=== PATIENT | female | born 1955 | race African-American/Black ===

== ENCOUNTER → 2020-04-01 08:43 | Outpatient (BNVA) | payer MEDICARE, SELFPAY | PROVIDERS: PCP Nurse Practitioner Family; Referring Provider Nurse Practitioner Family; Visit Provider Nurse Practitioner | DX: K58.2 Mixed irritable bowel syndrome (principal); K21.9 Gastro-esophageal reflux disease without esophagitis; K59.4 Anal spasm | CPT/HCPCS: 99212 ==

== ENCOUNTER → 2020-04-26 12:53 | Outpatient (REF) | payer MEDICARE, SELFPAY ==
--- NOTE | 2020-04-26 12:59 | CA_ITS ---
Transthoracic Echocardiogram Patient (Last, First, Middle): Georgiana Earl, Gender: Female Date of : 1955 Age: 65 Procedure Date: 04/26/2020 Procedure Type: Transthoracic Echocardiogram Location: OP Height: 149.86 cm Weight: 51.48 kg BSA: 1.45 m2 Heart Rate: bpm BP: 110 / 56 mmHg Vending Machine Host/Hostess: Referring MD: Kleber Liu MD Symptoms: I42.9 CMP Study Quality: Good ECG Rhythm: Ventriculary paced rhythm Conclusions: - The left ventricular systolic function is moderately decreased. The visually estimated ejection fraction is between 30-35%. - There is mild to moderate aortic valve regurgitation. - There is mild mitral valve regurgitation. Findings Left Ventricle Normal left ventricular cavity size. There is mildly increased left ventricular wall thickness. The left ventricular systolic function is moderately decreased. The visually estimated ejection fraction is between 30 35%. The calculated ejection fraction is 33% by biplane method. There is moderate global hypokinesis. E/E prime ratio is between 8 and 15 consistent with indeterminate filling pressures. Evidence suggests grade I (mild) diastolic dysfunction. Right Ventricle Normal right ventricular cavity size and systolic function. There is an ICD wire seen in the right ventricle. Atria The left atrium is normal in size. The right atrium is normal in size. Aortic Valve There is a normal trileaflet aortic valve. There is no aortic valve stenosis. There is mild to moderate aortic valve regurgitation. Mitral Valve The mitral valve appears normal. There is mild mitral valve regurgitation. There is no mitral valve stenosis. Pulmonic Valve The pulmonic valve was not well visualized. There is trace pulmonic valve regurgitation. Tricuspid Valve Normal tricuspid valve structure. There is trace tricuspid valve regurgitation. The pulmonary artery systolic pressure is normal. Great Vessels Top normal ascending aortic size at 3.6 cm. Venous The inferior vena cava is normal in size and collapses greater than 50% with inspiration. Pericardium/Pleural There is a small pericardial effusion. There are no definitive echocardiographic findings of tamponade physiology. Prior Study Comparison Changes noted compared to prior study dated: 07/19/2017. LVEF is lower. Measurements 2D Linear Measurements IVSd: 1.10 0.6-0.9/0.6-1.0 cm LVIDd: 5.14 3.9-5.3/4.2-5.9 cm LVIDd Index: 3.54 2.4-3.2/2.2-3.1 cm/m2 LVIDs: 4.24 2.0-3.6 cm LVPWd: 1.10 0.7-1.1 cm Ao Root: 3.50 2.1-3.5 cm LA Diam: 3.20 2.7-3.8/3.0-4.0 cm LAIDs Index: 2.21 1.5-2.3 cm/m2 LV Mass: 270.04 67-162/88-224 g LV Mass Index: 186.23 43-95/49-115 g/m2 LVOT Diam: 2.00 3.0+(-)1.3 cm 2D Systolic Function EF 4C: 29.60 >55% EF 2C: 31.60 >55% EF BiP: 33.10 >55% Mitral Valve MV Pk E: 0.44 MV PK A: 0.97 MV Decel Time: 92.00 E/A: 0.50 E'Lateral: 3.19 E'Medial: 3.58 E/E' Med: 12.20 E/E' Lat: 13.70 PHT: 27.00 MVA PHT: 8.15 Decel [place]: 4.77 Aortic Valve AoV Pk Jose Antonio: 1.29 AoV Mn Jose Antonio: 0.77 AoV VTI: 0.31 AoV Pk Grad: 7.00 Aov Mn Grad: 3.00 ECHO Cont.VTI: 1.92 AI Pk Jose Antonio: 5.20 AI [place]field: 3.44 LVOT LVOT Pk Jose Antonio: 0.94 LVOT Mn Jose Antonio: 0.55 LVOT VTI: 0.19 LVOT Pk Grad: 4.00 LVOT Mn Grad: 2.00 LVOT Diam: 2.00 LVOT Area: 3.14 Diastolic Function MV Pk E: 0.44 MV Pk A: 0.97 E/A: 0.50 E'Medial: 3.58 E/E' Med: 12.20 E' Laterial: 3.19 E/E' Lat: 13.70 Tricuspid Valve TR Pk Jose Antonio: 2.33 TR Pk Grad: 22.00 Great Vessels Aorta Ao Root-2D: 3.50 2.0-3.7 cm Ao Asc: 3.60 2.1-3.4 cm Pulmonary Valve PV Pk Jose Antonio: 0.86 Peak PV Grad: 3.00 Updated in Other Vendor System with Status of Final Praveen Singh MD electronically signed on 04/27/2020 8:47:05 AM with status of Final
== END ==
LOC: HO.CARD 12:53
PROVIDERS: Visit Provider Internal Medicine Cardiovascular Disease
DX: I42.9 Cardiomyopathy, unspecified (principal); I11.0 Hypertensive heart disease with heart failure; I50.9 Heart failure, unspecified
CPT/HCPCS: 93306

== ENCOUNTER 2020-05-11 23:49 | Inpatient (IN) | payer MEDICARE, SELFPAY ==
[2020-05-11 23:51] VITALS: BP 206/131; PULSE 116; RESP 18; TEMP 36.8; O2SAT 99; BMI 20.3
--- NOTE | 2020-05-11 23:57 | ED.ABDPAIN ---
HPI - Abdominal Pain General Chief Complaint: Abdominal Pain Stated Complaint: abdominal and back pain Time Seen by Provider: 05/11/20 23:57 Source: patient Mode of arrival: EMS Limitations: no limitations History of Present Illness HPI narrative: patient complaining of sudden onset of left flank pain going to the left side of abdomen prior to arrival with nausea and vomiting no fever no urinary symptoms never had any kidney stone in the past no fever abdominal distension no blood in the stool no urinary complaints MD elicited complaint: flank pain Pertinent past history: none Onset (ago): hour(s) Location: L flank Severity: severe Quality: stabbing Related Data Home Medications Medication Instructions Recorded Confirmed hydrocortisone 2.5 % topical cream 1 applic AK BID-QID PRN 03/31/20 03/31/20 with perineal applicator [id number] 1 cap PO TID cap 03/31/20 03/31/20 3,000-9,500-15,000 unit capsule,delayed releas methylcellulose (laxative) 500 mg 500 mg PO BID 03/31/20 03/31/20 tablet Previous Rx's Medication Instructions Recorded omeprazole 20 mg capsule,delayed 20 mg PO BID #60 cap 04/01/20 release sacubitril 97 mg-valsartan 103 mg 1 tab PO BID 90 Days #180 tab 04/27/20 tablet imipramine HCl 10 mg tablet 10 mg PO BEDTIME #30 tab 04/28/20 carvedilol 25 mg tablet 37.5 mg PO BID 90 Days #270 tab 05/07/20 Allergies Allergy/AdvReac Type Severity Reaction Status Date / Time Iodinated Contrast Media Allergy Severe ANGIOEDEMA Verified 04/01/20 08:46 [CONTRAST,IV] Review of Systems Review of Systems REVIEW OF SYSTEMS: Pertinent positives and negatives are stated above in the history. GEN: no fevers, chills, fatigue HEENT: no nasal congestion, sore throat, ear pain NEURO: no headache, dizziness, focal weakness PULM: no cough, shortness of breath CV: no chest pain, palpitations, LE edema ABD: no diarrhea no abdominal distention : no dysuria, urgency, frequency SKIN: no rash ROS otherwise negative x 10 Physical Exam Vital Signs: Vital Signs: Last Vital Signs Temp 98.3 F 05/11/20 23:51 Pulse 94 05/12/20 01:10 Resp 18 05/12/20 01:10 BP 186/104 H 05/12/20 01:10 Pulse Ox 95 05/12/20 01:10 Body Mass Index 20.3 Appearance: Alert. Oriented X3. in moderate distress Eyes: Pupils equal, round and reactive to light. ENT: Pharynx normal. Neck: Normal inspection. Neck supple. CVS: Normal heart rate and rhythm. Pulses normal. Respiratory: No respiratory distress. Breath sounds normal. Abdomen: Soft and tender left-sided no rebound tenderness or guarding. Left flank tenderness++ no hernia palpable bowel sounds are present in all 4 quadrants no mass palpable Skin: Skin warm and dry. Normal skin color. Normal skin turgor. Extremities: No lower extremity edema. Good range of movement Neuro: Oriented X 3. No motor deficit. No sensory deficit. Course Course Course Narrative: patient workup showed left distal ureteric stone 5 mm with hydronephrosis also urine shows UTI patient has history of recent urosepsis lactic acid is elevated 2.2 and elevated WBC count will give IV antibiotics and admit patient for pain control and infection MDM - Abdominal Pain MDM Narrative Medical decision making narrative: patient's acute onset of left flank pain clinically likely kidney stone but patient never had a history of kidney stones. Will do the CT scan workup check the urine for UTI Differential Diagnosis Differential diagnosis: Likely abdominal pain, calculus of kidney, diverticulitis and renal colic Medical Records Attestation: I reviewed the patient's medical records. Lab Data Attestation: I reviewed the patient's lab results. Result diagrams: 05/12/20 00:11 05/12/20 00:11 Labs: Lab Results 05/12/20 05/12/20 05/12/20 Range/Units 00:11 00:11 00:11 WBC 13.5 H (4.8-10.8) X10*3/uL RBC 3.76 L (4.20-5.50) X10*6/uL Hgb 11.8 L (12.0-16.0) g/dl Hct 35.6 L (37-47) % MCV 94.7 (80-98) fL MCH 31.4 (27.0-33.0) pg MCHC 33.1 (31.0-35.0) g/dl RDW 15.3 (11.0-16.0) % Plt Count 234 (160-400) X10*3/uL MPV 9.5 (9.4-12.3) fL Immature Gran % (Auto) 0.4 (0.0-0.4) % Neut % (Auto) 85.2 H (45-73) % Lymph % (Auto) 6.1 L (20-40) % [place] % (Auto) 6.8 (2-11) % Eos % (Auto) 1.0 (0-4) % Baso % (Auto) 0.5 (0-2) % Lymph # (Auto) 0.8 L (1.2-4.9) X10*3/uL [place] # (Auto) 0.9 (0.1-1.2) X10*3/uL Eos # (Auto) 0.1 (0.0-0.4) X10*3/uL Baso # (Auto) 0.1 (0.0-0.2) X10*3/uL Abs Immat Gran (auto) 0.06 H (0.00-0.03) X10*3/uL Absolute Neuts (auto) 11.5 H (2.0-8.3) X10*3/uL Absolute Nucleated RBC 0.000 (0.0-0.012) X10*3/uL Nucleated RBC % (auto) 0.0 (0.0-0.2) /100WBC Hold Blue Top SEE NOTE Sodium 144 (135-145) mmol/L Potassium 3.8 (3.3-5.1) mmol/l Chloride 112 H (96-108) mmol/L Carbon Dioxide 21 L (22-29) mmol/L Anion Gap 15 (12-20) BUN 21 H (9-16) mg/dL Creatinine 1.66 H (0.5-1.4) mg/dL Estim Creat Clear Calc 26.4 Estimated GFR 31 Random Glucose 127 H (60-115) mg/dL Lactic Acid (0.5-2.0) mmol/L Calcium 8.2 L (8.4-10.2) mg/dL Total Bilirubin 0.5 (0.0-1.0) mg/dL AST 18 (5-31) U/L ALT 9 (0-31) U/L Alkaline Phosphatase 81 (39-117) U/L Total Protein 7.2 (6.5-8.0) g/dL Albumin 4.2 (3.5-5.0) g/dL Lipase 94 H (8-78) U/L Urine Color Urine Appearance Urine pH (5.0-8.0) Ur Specific [place] (1.005-1.025) Urine Protein (NEG-TRACE) MG/DL Urine Glucose (UA) (NEG) MG/DL Urine Ketones (NEG) MG/DL Urine Blood (NEG) Urine Nitrite (NEG) Ur Leukocyte Esterase (NEG) Urine RBC (0) /HPF Urine WBC (0-4) /HPF Urine WBC Clumps Ur Squamous Epith Cells /LPF Urine Bacteria /LPF 05/12/20 05/12/20 Range/Units 00:31 00:39 WBC (4.8-10.8) X10*3/uL RBC (4.20-5.50) X10*6/uL Hgb (12.0-16.0) g/dl Hct (37-47) % MCV (80-98) fL MCH (27.0-33.0) pg MCHC (31.0-35.0) g/dl RDW (11.0-16.0) % Plt Count (160-400) X10*3/uL MPV (9.4-12.3) fL Immature Gran % (Auto) (0.0-0.4) % Neut % (Auto) (45-73) % Lymph % (Auto) (20-40) % [place] % (Auto) (2-11) % Eos % (Auto) (0-4) % Baso % (Auto) (0-2) % Lymph # (Auto) (1.2-4.9) X10*3/uL [place] # (Auto) (0.1-1.2) X10*3/uL Eos # (Auto) (0.0-0.4) X10*3/uL Baso # (Auto) (0.0-0.2) X10*3/uL Abs Immat Gran (auto) (0.00-0.03) X10*3/uL Absolute Neuts (auto) (2.0-8.3) X10*3/uL Absolute Nucleated RBC (0.0-0.012) X10*3/uL Nucleated RBC % (auto) (0.0-0.2) /100WBC Hold Blue Top Sodium (135-145) mmol/L Potassium (3.3-5.1) mmol/l Chloride (96-108) mmol/L Carbon Dioxide (22-29) mmol/L Anion Gap (12-20) BUN (9-16) mg/dL Creatinine (0.5-1.4) mg/dL Estim Creat Clear Calc Estimated GFR Random Glucose (60-115) mg/dL Lactic Acid 2.2 H* (0.5-2.0) mmol/L Calcium (8.4-10.2) mg/dL Total Bilirubin (0.0-1.0) mg/dL AST (5-31) U/L ALT (0-31) U/L Alkaline Phosphatase (39-117) U/L Total Protein (6.5-8.0) g/dL Albumin (3.5-5.0) g/dL Lipase (8-78) U/L Urine Color STRAW Urine Appearance HAZY Urine pH 6.5 (5.0-8.0) Ur Specific [place] 1.020 (1.005-1.025) Urine Protein TRACE (NEG-TRACE) MG/DL Urine Glucose (UA) NEG (NEG) MG/DL Urine Ketones NEG (NEG) MG/DL Urine Blood 3+ H (NEG) Urine Nitrite NEG (NEG) Ur Leukocyte Esterase TRACE H (NEG) Urine RBC 50-75 H (0) /HPF Urine WBC 30-49 H (0-4) /HPF Urine WBC Clumps NOTED Ur Squamous Epith Cells 2+ /LPF Urine Bacteria 3+ /LPF Discharge Plan Discharge Clinical Impression: Calculus of distal left ureter, Acute pyelonephritis Patient Disposition: Admitted As Inpatient [facility] Past Medical History Medical History CAD (coronary artery disease) Cardiomyopathy Chronic heart failure with reduced ejection fraction and diastolic dysfunction HTN (hypertension) Hyperlipidemia ICD (implantable cardioverter-defibrillator) in place Surgical History Hx of colonoscopy Stented coronary artery Family History Family History Father Diabetes HTN (hypertension) Mother Diabetes HTN (hypertension) Sister Throat cancer Social History Social History Alcohol intake: current Alcohol intake frequency: holidays/special occasions only Alcohol type: beer Smoking Status: Current every day smoker Tobacco Type: Cigarette Cigarettes Per Day: 3 Advance Directives: No
[2020-05-12] VITALS (15 sets, daily range): BP systolic 105–191; BP diastolic 73–111; PULSE 89–102; RESP 14–22; TEMP 36.7–37.3; O2SAT 94–100; BMI 20.7
--- NOTE | 2020-05-12 | ECG_ITS ---
Test Reason : ABD PAIN Blood Pressure : / mmHG Vent. Rate : 091 BPM Atrial Rate : 091 BPM P-R Int : 142 ms QRS Dur : 086 ms QT Int : 398 ms P-R-T Axes : 054 011 087 degrees QTc Int : 489 ms Artifact in tracing Normal sinus rhythm Left ventricular hypertrophy with repolarization abnormality Abnormal ECG When compared with ECG of 05-MAR-2017 12:11, T wave inversion now evident in Lateral leads Referred By: Zaire Vega Electronically Signed By:SANIYA TYSON
--- NOTE | 2020-05-12 00:02 | CT_ITS ---
EXAMINATION: CT ABDOMEN AND PELVIS WITHOUT CONTRAST CLINICAL INFORMATION: Left flank pain. COMPARISON: Priors dating back to 2013 TECHNIQUE: Multidetector volumetric imaging was performed from the superior aspect of the liver through the pubic symphysis. Sagittal and coronal reformatted images were obtained on the technologist's workstation. This CT examination was performed using dose optimization techniques as appropriate, variously including the following: *Automated exposure control *Adjustment of mA and/or kV according to patient size (this includes techniques or standardized protocols for targeted exams where dose is matched to indication/reason for exam; i.e. extremities or head) *Use of iterative reconstruction technique DLP: 386 mGy-cm FINDINGS: LUNG BASES: The visualized lung bases are unremarkable. LIVER, GALLBLADDER, AND BILIARY TREE: The liver is normal in size, shape, and attenuation. Stable cyst in the lateral segment. No suspicious hepatic lesion or biliary ductal dilatation is present. Gallbladder unremarkable. PANCREAS: Unremarkable. SPLEEN: Unremarkable. ADRENAL GLANDS: Slowly increasing size of a left adrenal nodule which now measures 2.0 x 1.8 cm, previously 1.4 x 1.2 cm in 2014. Attenuation is 13 Hounsfield units, which is not diagnostic of a benign lipid rich adrenal adenoma. Right adrenal gland is normal. KIDNEYS AND URETERS: Chronic atrophy and multifocal scarring of the LEFT kidney redemonstrated. There is moderate to severe left hydronephrosis and moderate hydroureter upstream from a 5 mm calculus located 1 cm proximal to the ureterovesical junction. There is a 5 x 2 mm nonobstructing calculus within the upper pole of the LEFT kidney, and a punctate calculus within the upper pole of the LEFT kidney. There is a punctate nonobstructive calculus within the upper pole of the right kidney. Focal scarring redemonstrated within the lower pole of the right kidney. No suspicious renal cysts or masses. BLADDER: Unremarkable. GASTROINTESTINAL TRACT: Scattered left colonic diverticula. No evidence of diverticulitis. Normal appendix. Stomach and small bowel unremarkable. ABDOMINAL WALL: No significant hernia is appreciated. LYMPH NODES: Normal. VASCULAR: Aorta is atherosclerotic. Stable mild aneurysmal dilatation of the abdominal aorta at the diaphragmatic hiatus measuring up to 3.3 cm. PELVIC VISCERA: Unremarkable. OSSEOUS STRUCTURES: No acute or suspicious osseous abnormalities. CT/CT abdomen pelvis wo con IMPRESSION: * There is a 5 mm calculus within the distal LEFT ureter, 1 cm proximal to the ureterovesical junction associated with moderate to severe left hydronephrosis. * Additional bilateral nonobstructive intrarenal calculi as described. * Chronic atrophy and multifocal scarring of the left kidney, and minimal focal scarring of the right lower kidney. Slowly increasing size of a left adrenal nodule which now measures up to 2.0 cm, previously 1.4 cm and 2014. Attenuation is not diagnostic of a lipid rich adenoma, although is suggested. Consider MRI with chemical shift imaging for more definitive characterization. At the minimum, current guidelines from the [place] [employer] of Clinical Endocrinologists and the [place] [employer] of Endocrine Surgeons recommend an initial biochemical evaluation of all adrenal incidentalomas to exclude pheochromocytoma, subclinical Lyme/s syndrome and hyperaldosteronism. * Scattered sigmoid colonic diverticula without evidence of diverticulitis. * Stable mild aneurysmal dilatation of the ascending aorta at the diaphragmatic hiatus measuring 3.3 cm.
[2020-05-12 00:19] LABS: Basophils Absolute Auto 0.1 X10*3/uL (0.0-0.2); Basophils Percent Auto 0.5 % (0-2); Eosinophils Absolute Auto 0.1 X10*3/uL (0.0-0.4); Hematocrit 35.6 % (37-47); Hemoglobin 11.8 g/dl (12.0-16.0); Imm Gran Abs Auto 0.06 X10*3/uL (0.00-0.03); Imm Gran Pct Auto 0.4 % (0.0-0.4); Lymphocytes Absolute Auto 0.8 X10*3/uL (1.2-4.9); Lymphocytes Percent Auto 6.1 % (20-40); MANUAL DIFF FLAG NO; Mean Corpuscular HGB Conc 33.1 g/dl (31.0-35.0); Mean Corpuscular Hemoglobin 31.4 pg (27.0-33.0); Mean Corpuscular Volume 94.7 fL (80-98); Mean Platelet Volume 9.5 fL (9.4-12.3); Monocytes Absolute Auto 0.9 X10*3/uL (0.1-1.2); Monocytes Percent Auto 6.8 % (2-11); Neutrophils Absolute Auto 11.5 X10*3/uL (2.0-8.3); Neutrophils Percent Auto 85.2 % (45-73); Platelet Count 234 X10*3/uL (160-400); Red Blood Count 3.76 X10*6/uL (4.20-5.50); Red Cell Distribution Width 15.3 % (11.0-16.0); White Blood Count 13.5 X10*3/uL (4.8-10.8)
[2020-05-12] MEDS: Morphine Sulfate 4 MG/ML CARTRIDGE IVPUSH ×3 (00:24→13:24)
[2020-05-12] MEDS: ondansetron HCL 4 MG/2 ML VIAL IVPUSH (00:24)
[2020-05-12] MEDS: 0.9 % Sodium Chloride 1,000 ML 999 ML IVCONT ×2 (00:24→01:18)
[2020-05-12 00:44] LABS: Glucose Urine UA NEG (NEG); Leukocyte Esterase Urine TRACE (NEG); Nitrite Urine NEG (NEG); PH 6.5 (5.0-8.0); Urine Blood 3+ (NEG); Urine Ketones NEG (NEG); Urine Protein TRACE MG/DL (NEG-TRACE)
[2020-05-12 00:46] LABS: Appearance Urine HAZY; Color Urine STRAW
[2020-05-12 00:48] LABS: Alanine Aminotransferase 9 U/L (0-31); Albumin Level 4.2 g/dL (3.5-5.0); Alkaline Phosphatase 81 U/L (39-117); Anion Gap 15 (12-20); Aspartate Amino Transferase 18 U/L (5-31); Bilirubin Total 0.5 mg/dL (0.0-1.0); Blood Urea Nitrogen 21 mg/dL (9-16); Calcium 8.2 mg/dL (8.4-10.2); Carbon Dioxide 21 mmol/L (22-29); Chloride 112 mmol/L (96-108); Creatinine Clr Calc Pharmacy 26.4; Estimated Glomerular Filt Rate 31; Glucose Random 127 mg/dL (60-115); Lipase 94 U/L (8-78); Potassium 3.8 mmol/l (3.3-5.1); Sodium 144 mmol/L (135-145); Total Protein 7.2 g/dL (6.5-8.0)
[2020-05-12 00:51] LABS: Bacteria Urine 3+ /LPF; RBC Urine 50-75 /HPF (0); Squamous Epithelial Cell Urine 2+ /LPF; WBC Clumps Urine NOTED; WBC Urine 30-49 /HPF (0-4)
[2020-05-12 01:01] LABS: Lactic Acid 2.2 mmol/L (0.5-2.0)
[2020-05-12] MEDS: cefTRIAXone sodium 1 GM in 0.9 % Sodium Chloride 50 ML IV ×2 (01:18→21:25)
--- NOTE | 2020-05-12 01:45 | PC.NURSE ---
pt reports feeling unwell for a long time. but acute onset of pain. i just dont' deal with pain well. Pt reports severe pain post morphine administration.
[2020-05-12] MEDS: HYDROmorphone HCl 0.5 MG/0.5 ML SYRINGE IVPUSH (02:05)
[2020-05-12 02:33] LABS: COVID-19 Test Negative (Negative)
[2020-05-12 02:34] LABS: Reflex Lactate? Lactic Acid Added
[2020-05-12] MEDS: Labetalol HCL 100 MG TABLET PO (02:58)
--- NOTE | 2020-05-12 03:22 | PC.NURSE ---
pt medicated with po labetolol. monitoring for effect now.
[2020-05-12 04:12] LABS: Lactic Acid 3.4 mmol/L (0.5-2.0)
--- NOTE | 2020-05-12 04:15 | PC.NURSE ---
attempted to give report. floor rn refused.
--- NOTE | 2020-05-12 04:24 | PM.IMHP ---
History of Present Illness Date of Service: 05/12/20 Chief Complaint: flank pain this is a 65-year-old female with extensive past medical history as below who presents to the hospital with complaints of left flank pain. Patient received pain medication is very lethargic, history is obtained mostly from ED physician and chart. diffuse the patient has left flank pain associated with nausea and vomiting, denies any fever, or chills. Patient is also denying any urinary symptoms. unable to obtain complete review of system. on arrival to the ED patient hemodynamically stable with a pulse rate of 116, blood pressure of 2 6/131. Currently has a temperature of 99.2?, pulse rate of 100, respiratory rate of 18, blood pressure 149/89. Satting 95% on room air. Labs are significant for WBC count of 13.5,hemoglobin of 11.8, lactic acid of 2.2, lipase of 94. UA that is positive for blood, leukocyte Estrace, and WBC. COVID-[address] shows a 5 mm calculus within the distal left ureter, associated with moderate to severe left hydronephrosis. Chronic atrophy and multifocal scarring of the left kidney and minimal focal scarring of the right lower kidney. Patient does have history of UTI and pyelonephritis. Most recently admitted in January for pyelonephritis. Past medical history is obtained Mostly from chart. Past medical history: Coronary artery disease, hypertension, history of nephrolithiasis, GI bleed,cardiomyopathy, chronic heart failure with reduced ejection fraction and diastolic dysfunction, hypertension, hyperlipidemia, status post ICD., depression, neuropathy, GERD, asthma, CKD Surgical history: [facility] ICD placement, exploratory laparotomy 2014 family history: Cardiac disease social history: comes from home, Review of Systems Review of Systems: Yes Unobtainable due to mental condition [facility] Medical History CAD (coronary artery disease) Cardiomyopathy Chronic heart failure with reduced ejection fraction and diastolic dysfunction HTN (hypertension) Hyperlipidemia ICD (implantable cardioverter-defibrillator) in place Family History Father Diabetes HTN (hypertension) Mother Diabetes HTN (hypertension) Sister Throat cancer Surgical History Hx of colonoscopy Stented coronary artery Social History Alcohol intake: current Alcohol intake frequency: holidays/special occasions only Alcohol type: beer Smoking Status: Current every day smoker Tobacco Type: Cigarette Cigarettes Per Day: 3 Advance Directives: No Meds Allergies Allergy/AdvReac Type Severity Reaction Status Date / Time Iodinated Contrast Media Allergy Severe ANGIOEDEMA Verified 04/01/20 08:46 [CONTRAST,IV] Home Medications Medication Instructions Recorded Confirmed Type hydrocortisone 2.5 % topical cream 1 applic AR BID-QID PRN 03/31/20 03/31/20 History with perineal applicator [id number] 1 cap PO TID cap 03/31/20 03/31/20 History 3,000-9,500-15,000 unit capsule,delayed releas methylcellulose (laxative) 500 mg 500 mg PO BID 03/31/20 03/31/20 History tablet Physical Exam Vital Signs and Narrative: Vital Signs: Last Vital Signs Temp 98.3 F 05/11/20 23:51 Pulse 99 05/12/20 03:32 Resp 18 05/12/20 03:32 BP 157/91 H 05/12/20 03:55 Pulse Ox 97 05/12/20 03:32 Body Mass Index 20.3 Const: Other: patient lethargic but arousable. Does not appear in any acute distress Eyes: General: appearance normal, both eyes and all related structures Pupils: Equal, round and reactive pupils present Resp: Effort & Inspection: normal respiratory effort and able to speak in complete sentences Auscultation: clear to auscultation bilaterally Cardio: Rate: regular rate Rhythm: regular rhythm GI: Palpation (GI): Soft to palpation Auscultation: normal bowel sounds Skin: General skin exam: no rashes or lesions noted Neuro: Cranial nerves: Yes Equal, round and reactive pupils present Cognition (Neuro): normal cognition Extrem: General: Yes normal to inspection and Yes no pedal edema Results Labs CBC and Chem 7: 05/12/20 00:11 05/12/20 00:11 Labs: Laboratory Results - last 24 hr 05/12/20 05/12/20 05/12/20 00:11 00:11 00:11 MCV 94.7 MCH 31.4 MCHC 33.1 RDW 15.3 Plt Count 234 MPV 9.5 Immature Gran % (Auto) 0.4 Neut % (Auto) 85.2 H Lymph % (Auto) 6.1 L [place] % (Auto) 6.8 Eos % (Auto) 1.0 Baso % (Auto) 0.5 Lymph # (Auto) 0.8 L [place] # (Auto) 0.9 Eos # (Auto) 0.1 Baso # (Auto) 0.1 Abs Immat Gran (auto) 0.06 H Absolute Neuts (auto) 11.5 H Absolute Nucleated RBC 0.000 Nucleated RBC % (auto) 0.0 Hold Blue Top SEE NOTE Anion Gap 15 Estim Creat Clear Calc 26.4 Estimated GFR 31 Random Glucose 127 H Lactic Acid Lactic Acid Fup @ 2Hr Calcium 8.2 L Total Bilirubin 0.5 AST 18 ALT 9 Alkaline Phosphatase 81 Total Protein 7.2 Albumin 4.2 Lipase 94 H Urine Color Urine Appearance Urine pH Ur Specific [place] Urine Protein Urine Glucose (UA) Urine Ketones Urine Blood Urine Nitrite Ur Leukocyte Esterase Urine RBC Urine WBC Urine WBC Clumps Ur Squamous Epith Cells Urine Bacteria COVID-19 (RICK) COVID-A Fourth Act 05/12/20 05/12/20 05/12/20 00:31 00:39 02:08 MCV MCH MCHC RDW Plt Count MPV Immature Gran % (Auto) Neut % (Auto) Lymph % (Auto) [place] % (Auto) Eos % (Auto) Baso % (Auto) Lymph # (Auto) [place] # (Auto) Eos # (Auto) Baso # (Auto) Abs Immat Gran (auto) Absolute Neuts (auto) Absolute Nucleated RBC Nucleated RBC % (auto) Hold Blue Top Anion Gap Estim Creat Clear Calc Estimated GFR Random Glucose Lactic Acid 2.2 H* Lactic Acid Fup @ 2Hr Calcium Total Bilirubin AST ALT Alkaline Phosphatase Total Protein Albumin Lipase Urine Color STRAW Urine Appearance HAZY Urine pH 6.5 Ur Specific [place] 1.020 Urine Protein TRACE Urine Glucose (UA) NEG Urine Ketones NEG Urine Blood 3+ H Urine Nitrite NEG Ur Leukocyte Esterase TRACE H Urine RBC 50-75 H Urine WBC 30-49 H Urine WBC Clumps NOTED Ur Squamous Epith Cells 2+ Urine Bacteria 3+ COVID-19 (RICK) Negative COVID-[employer] Clin Com See Note 05/12/20 05/12/20 02:48 03:19 MCV MCH MCHC RDW Plt Count MPV Immature Gran % (Auto) Neut % (Auto) Lymph % (Auto) [place] % (Auto) Eos % (Auto) Baso % (Auto) Lymph # (Auto) [place] # (Auto) Eos # (Auto) Baso # (Auto) Abs Immat Gran (auto) Absolute Neuts (auto) Absolute Nucleated RBC Nucleated RBC % (auto) Hold Blue Top Anion Gap Estim Creat Clear Calc Estimated GFR Random Glucose Lactic Acid 3.4 H* Lactic Acid Fup @ 2Hr Cancelled Calcium Total Bilirubin AST ALT Alkaline Phosphatase Total Protein Albumin Lipase Urine Color Urine Appearance Urine pH Ur Specific [place] Urine Protein Urine Glucose (UA) Urine Ketones Urine Blood Urine Nitrite Ur Leukocyte Esterase Urine RBC Urine WBC Urine WBC Clumps Ur Squamous Epith Cells Urine Bacteria COVID-19 (RICK) COVID-19 Clin Com Imaging Radiologist's Impressions: Impressions Abdomen/Pelvis CT 05/12/20 00:02 IMPRESSION: * There is a 5 mm calculus within the distal LEFT ureter, 1 cm proximal to the ureterovesical junction associated with moderate to severe left hydronephrosis. * Additional bilateral nonobstructive intrarenal calculi as described. * Chronic atrophy and multifocal scarring of the left kidney, and minimal focal scarring of the right lower kidney. Slowly increasing size of a left adrenal nodule which now measures up to 2.0 cm, previously 1.4 cm and 2014. Attenuation is not diagnostic of a lipid rich adenoma, although is suggested. Consider MRI with chemical shift imaging for more definitive characterization. At the minimum, current guidelines from the [place] [employer] and the [place] [employer] recommend an initial biochemical evaluation of all adrenal incidentalomas to exclude pheochromocytoma, subclinical Olimpia/s syndrome and hyperaldosteronism. * Scattered sigmoid colonic diverticula without evidence of diverticulitis. * Stable mild aneurysmal dilatation of the ascending aorta at the diaphragmatic hiatus measuring 3.3 cm. Assessment and Plan (1) Sepsis: Status: Acute (2) Calculus of distal left ureter: Status: Acute (3) Acute pyelonephritis: Status: Acute (4) Chronic heart failure with reduced ejection fraction and diastolic dysfunction: Status: Acute (5) CAD (coronary artery disease): Status: Acute (6) HTN (hypertension): Status: Acute (7) Hyperlipidemia: Status: Acute (8) GERD (gastroesophageal reflux disease): Status: Acute this is a 65-year-old female with past medical history of nephrolithiasis as well as pyelonephritis who presents to the hospital with flank pain. Found to have kidney stone as well as UTI. # Sepsis - secondary to pyelonephritis, no other source of infection at this time, has nephrolithiasis of the left used to - tachycardia, leukocytosis, afebrile at this time - Has elevated lactic acid Plan: - started on ceftriaxone - blood and urine cultures collected in the ED, will follow - IV fluids # pyelonephritis - source most likely nephrolithiasis plan: - Urology consult for management of the nephrolithiasis - IV antibiotics - urine and blood cultures - IV fluids # nephrolithiasis - consult urology - IV fluids # history of coronary artery disease - continue carvedilol, # history of congestive heart failure - does not appear to be in exacerbation - continue Entresto as well as carvedilol - monitor respiratory status as patient will be started on IV antibiotics DVT prophylaxis: Lovenox
[2020-05-12 05:22] LABS: Reflex Lactate? Lactic Acid Added
[2020-05-12] MEDS: Lactated Ringers 1,000 ML 100 ML IVCONT ×2 (05:51→16:24)
[2020-05-12] MEDS: Enoxaparin Sodium 40 MG/0.4 ML SYRINGE SUBCUT (05:51)
[2020-05-12 06:55] LABS: ~Lactic Acid-LAB USE ONLY 2.1 mmol/L (0.5-2.0)
--- NOTE | 2020-05-12 07:10 | PC.NURSE ---
0655; Lab called with critical lacitc of 2.1 trending from previous lactic of 3.4 Day shift RN Maya made aware, change of shift md, day shift RN will notify am
[2020-05-12 08:09] LABS: Reflex Lactate? 2 Y
[2020-05-12 08:24] LABS: Basophils Absolute Auto 0.1 X10*3/uL (0.0-0.2); Basophils Percent Auto 0.3 % (0-2); Eosinophils Percent Auto 0.3 % (0-4); Hematocrit 35.4 % (37-47); Hemoglobin 11.6 g/dl (12.0-16.0); Imm Gran Abs Auto 0.07 X10*3/uL (0.00-0.03); Imm Gran Pct Auto 0.5 % (0.0-0.4); Lymphocytes Absolute Auto 0.6 X10*3/uL (1.2-4.9); MANUAL DIFF FLAG SCAN; Mean Corpuscular HGB Conc 32.8 g/dl (31.0-35.0); Mean Corpuscular Hemoglobin 31.4 pg (27.0-33.0); Mean Corpuscular Volume 95.7 fL (80-98); Mean Platelet Volume 10.6 fL (9.4-12.3); Monocytes Percent Auto 6.4 % (2-11); Neutrophils Absolute Auto 13.7 X10*3/uL (2.0-8.3); Neutrophils Percent Auto 88.5 % (45-73); Platelet Count 215 X10*3/uL (160-400); Red Cell Distribution Width 15.4 % (11.0-16.0); SCAN SMEAR FLAG 1; White Blood Count 15.4 X10*3/uL (4.8-10.8)
[2020-05-12 08:36] LABS: Anion Gap 15 (12-20); Blood Urea Nitrogen 18 mg/dL (9-16); Carbon Dioxide 19 mmol/L (22-29); Chloride 112 mmol/L (96-108); Creatinine Clr Calc Pharmacy 30.3; Estimated Glomerular Filt Rate 36; Glucose Random 115 mg/dL (60-115); Potassium 4.3 mmol/l (3.3-5.1); Sodium 142 mmol/L (135-145)
[2020-05-12 08:54] LABS: Calcium 7.3 mg/dL (8.4-10.2)
[2020-05-12 09:00] LABS: SLIDE REVIEW VERIFIED
[2020-05-12] MEDS: Tamsulosin HCL 0.4 MG CAPSULE PO (09:45)
[2020-05-12 09:50] LABS: ~Lactic Acid-LAB USE ONLY 2.3 mmol/L (0.5-2.0)
--- NOTE | 2020-05-12 11:55 | MHC.CM.PN ---
CM met with patient with interpretive program coordinator at the bedside who reports she is independent and lives with S.O. Patient does not have a HCP and declines filling one out today after being educated. Discussed discharge plan, home no services. S.O. will provide transport. CM will continue to follow patient for discharge needs.
--- NOTE | 2020-05-12 14:10 | PM.UROCN ---
History of Present Illness Consult details Consult date: 05/12/20 Narrative: 65-year-old [place]ian-speaking female with extensive past medical history presented with left flank pain. Was lethargic. Noted to have diffuse flank pain associated with nausea and vomiting. CT scan showed 7 mm distal left ureteric stone with hydroureteronephrosis Creatinine is elevated off baseline but improved with hydration Lactic acidosis does show elevation and is increasing suggestive of SIRS response Recommend intervention with cystoscopy, retrograde, stent placement. The patient had eaten breakfast an attempt was made to place a stent at the bedside. The stent was able to be placed however the distal end was retracted up into the ureter and will need to be operatively repositioned. [facility] Past Medical History Medical History CAD (coronary artery disease) Cardiomyopathy Chronic heart failure with reduced ejection fraction and diastolic dysfunction HTN (hypertension) Hyperlipidemia ICD (implantable cardioverter-defibrillator) in place Family History Family History Father Diabetes HTN (hypertension) Mother Diabetes HTN (hypertension) Sister Throat cancer Surgical History Surgical History Hx of colonoscopy Stented coronary artery Social History Social History Household Members: None Housing: Apartment Do you presently have visiting nurse or other home services: No Alcohol intake: current Alcohol intake frequency: holidays/special occasions only Alcohol type: beer Smoking Status: Unknown if ever smoked Tobacco Type: Cigarette Cigarettes Per Day: 3 Use of substances other than those prescribed or required for medical reasons: Yes Substance Use Type: Marijuana Substance Use Frequency: Monthly Currently Displaying Signs/Symptoms of Drug Intoxication Withdrawal: No Have you been hit, kicked, punched, or otherwise hurt by someone within the past year? If so, by whom?: No Do you feel safe in your current relationship?: Yes Is there a partner from a previous relationship who is making you feel unsafe now?: No Are you made to feel afraid or neglected: No Advance Directives: No Do you have thoughts of harming others: None Do you have a plan to hurt others: No Plan Recently lost weight without trying: Unsure service: No Current occupational status: unemployed Meds Allergies Allergy/AdvReac Type Severity Reaction Status Date / Time Iodinated Contrast Media Allergy Severe ANGIOEDEMA Verified 04/01/20 08:46 [CONTRAST,IV] Home Medications Medication Instructions Recorded Confirmed Type hydrocortisone 2.5 % topical cream 1 applic DC BID-QID PRN 03/31/20 03/31/20 History with perineal applicator [id number] 1 cap PO TID cap 03/31/20 03/31/20 History 3,000-9,500-15,000 unit capsule,delayed releas methylcellulose (laxative) 500 mg 500 mg PO BID 03/31/20 03/31/20 History tablet Physical Exam Vital Signs: Vital Signs: Last Vital Signs Temp 98.0 F 05/12/20 11:30 Pulse 93 05/12/20 11:30 Resp 18 05/12/20 11:30 BP 112/77 05/12/20 11:30 Pulse Ox 95 05/12/20 11:30 Body Mass Index 20.7 Const: General: cooperative, healthy appearing, comfortable and no acute distress Nutritional Appearance: average body habitus Orientation/consciousness: oriented to person, oriented to place and oriented to time Eyes: General: appearance normal, both eyes and all related structures Chest: Chest palpation & inspection: normal inspection of the chest Resp: Effort & Inspection: normal respiratory effort Cardio: Rate: regular rate GI: Inspection: Yes normal to inspection Skin: Hair: normal Neuro: General: oriented to person, oriented to place and oriented to time Extrem: General: Yes normal to inspection Results Labs Result diagrams: 05/12/20 05:55 05/12/20 05:55 Labs: Abnormal lab results 05/12/20 05/12/20 05/12/20 Range/Units 00:11 00:11 00:31 WBC 13.5 H (4.8-10.8) X10*3/uL RBC 3.76 L (4.20-5.50) X10*6/uL Hgb 11.8 L (12.0-16.0) g/dl Hct 35.6 L (37-47) % Immature Gran % (Auto) (0.0-0.4) % Neut % (Auto) 85.2 H (45-73) % Lymph % (Auto) 6.1 L (20-40) % Lymph # (Auto) 0.8 L (1.2-4.9) X10*3/uL Abs Immat Gran (auto) 0.06 H (0.00-0.03) X10*3/uL Absolute Neuts (auto) 11.5 H (2.0-8.3) X10*3/uL Chloride 112 H (96-108) mmol/L Carbon Dioxide 21 L (22-29) mmol/L BUN 21 H (9-16) mg/dL Creatinine 1.66 H (0.5-1.4) mg/dL Random Glucose 127 H (60-115) mg/dL Lactic Acid 2.2 H* (0.5-2.0) mmol/L Lactic Acid Fup @ 2Hr (0.5-2.0) mmol/L Lactic Acid Fup @ 4Hr (0.5-2.0) mmol/L Calcium 8.2 L (8.4-10.2) mg/dL Lipase 94 H (8-78) U/L Urine Blood (NEG) Ur Leukocyte Esterase (NEG) Urine RBC (0) /HPF Urine WBC (0-4) /HPF 05/12/20 05/12/20 05/12/20 Range/Units 00:39 03:19 05:55 WBC (4.8-10.8) X10*3/uL RBC (4.20-5.50) X10*6/uL Hgb (12.0-16.0) g/dl Hct (37-47) % Immature Gran % (Auto) (0.0-0.4) % Neut % (Auto) (45-73) % Lymph % (Auto) (20-40) % Lymph # (Auto) (1.2-4.9) X10*3/uL Abs Immat Gran (auto) (0.00-0.03) X10*3/uL Absolute Neuts (auto) (2.0-8.3) X10*3/uL Chloride (96-108) mmol/L Carbon Dioxide (22-29) mmol/L BUN (9-16) mg/dL Creatinine (0.5-1.4) mg/dL Random Glucose (60-115) mg/dL Lactic Acid 3.4 H* (0.5-2.0) mmol/L Lactic Acid Fup @ 2Hr 2.1 H* (0.5-2.0) mmol/L Lactic Acid Fup @ 4Hr (0.5-2.0) mmol/L Calcium (8.4-10.2) mg/dL Lipase (8-78) U/L Urine Blood 3+ H (NEG) Ur Leukocyte Esterase TRACE H (NEG) Urine RBC 50-75 H (0) /HPF Urine WBC 30-49 H (0-4) /HPF 05/12/20 05/12/20 05/12/20 Range/Units 05:55 05:55 08:46 WBC 15.4 H (4.8-10.8) X10*3/uL RBC 3.70 L (4.20-5.50) X10*6/uL Hgb 11.6 L (12.0-16.0) g/dl Hct 35.4 L (37-47) % Immature Gran % (Auto) 0.5 H (0.0-0.4) % Neut % (Auto) 88.5 H (45-73) % Lymph % (Auto) 4.0 L (20-40) % Lymph # (Auto) 0.6 L (1.2-4.9) X10*3/uL Abs Immat Gran (auto) 0.07 H (0.00-0.03) X10*3/uL Absolute Neuts (auto) 13.7 H (2.0-8.3) X10*3/uL Chloride 112 H (96-108) mmol/L Carbon Dioxide 19 L (22-29) mmol/L BUN 18 H (9-16) mg/dL Creatinine 1.44 H (0.5-1.4) mg/dL Random Glucose (60-115) mg/dL Lactic Acid (0.5-2.0) mmol/L Lactic Acid Fup @ 2Hr (0.5-2.0) mmol/L Lactic Acid Fup @ 4Hr 2.3 H* (0.5-2.0) mmol/L Calcium 7.3 L D (8.4-10.2) mg/dL Lipase (8-78) U/L Urine Blood (NEG) Ur Leukocyte Esterase (NEG) Urine RBC (0) /HPF Urine WBC (0-4) /HPF Short CBC 05/12/20 05/12/20 Range/Units 00:11 05:55 WBC 13.5 H 15.4 H (4.8-10.8) X10*3/uL Hgb 11.8 L 11.6 L (12.0-16.0) g/dl Hct 35.6 L 35.4 L (37-47) % Plt Count 234 215 (160-400) X10*3/uL BMP 05/12/20 05/12/20 00:11 05:55 Sodium 144 142 Potassium 3.8 4.3 Chloride 112 H 112 H Carbon Dioxide 21 L 19 L BUN 21 H 18 H Creatinine 1.66 H 1.44 H Calcium 8.2 L 7.3 L D Liver Function 05/12/20 Range/Units 00:11 Total Bilirubin 0.5 (0.0-1.0) mg/dL AST 18 (5-31) U/L ALT 9 (0-31) U/L Alkaline Phosphatase 81 (39-117) U/L Albumin 4.2 (3.5-5.0) g/dL Urine 05/12/20 Range/Units 00:39 Urine Color STRAW Urine Appearance HAZY Urine pH 6.5 (5.0-8.0) Ur Specific [place] 1.020 (1.005-1.025) Urine Protein TRACE (NEG-TRACE) MG/DL Urine Glucose (UA) NEG (NEG) MG/DL All other labs normal. KIDNEYS AND URETERS: Chronic atrophy and multifocal scarring of the LEFT kidney redemonstrated. There is moderate to severe left hydronephrosis and moderate hydroureter upstream from a 5 mm calculus located 1 cm proximal to the ureterovesical junction. There is a 5 x 2 mm nonobstructing calculus within the upper pole of the LEFT kidney, and a punctate calculus within the upper pole of the LEFT kidney. There is a punctate nonobstructive calculus within the upper pole of the right kidney. Focal scarring redemonstrated within the lower pole of the right kidney. No suspicious renal cysts or masses. Assessment and Plan (1) Calculus of distal left ureter: Status: Acute (2) Acute pyelonephritis: Status: Acute Plan for left stent placement Procedure discussed with patient and translating She is aware of risks and benefits will require operative repositioning of stent
--- NOTE | 2020-05-12 14:15 | P.OP_ITS ---
Operative Note Operative Note Date of Service: 05/12/20 Narrative: PreOperative Diagnosis: distal left ureteric stent with hydronephrosis Post Operative Diagnosis: distal left ureteric stent with hydronephrosis Procedure: cystoscopy with left stent placement Surgeon: Dr Paul Rose Anesthesia: morphine Indications for procedure: distal left stone Had eaten breakfast Rising lactic acid Procedure: After informed consent was verified the patient was brought to the operating room and placed in a supine position. she was placed in frogleg position and prepped Flexible cystoscope was placed per urethra swollen edematous left ureteric orifice was seen A flexible ureteric catheter was able to be introduced into the opening of the left orifice. A angled Glidewire was then introduced internal resistance was met. The ureteric catheter was removed A flexi length 6 [place] ureteric double-J stent was then passed visualization was decreased secondary to purlent material from the ureteric orifice The Glidewire was removed The bladder was examined The tip of stent was seen retracting into the ureteric orifice This is discussed the patient she will need operative repositioning which will be organized Pathology: Drains:
--- NOTE | 2020-05-12 14:35 | P.PNUR_ITS ---
Subjective Subjective Date of Service: 05/12/20 Interval history: discussed case with anesthesia Recommendation would be to defer for 6 hours from time deferred unless emergent Based on rising lactate of 3.3 which has reduced slightly and persistent creatinine 1.4 off baseline would recommend this is emergent Apparently material was also seen at ureteric orifice at time of cystoscopy suggestive of infected system which should be drained Will not be accessible antibiotics Physical Exam Vital Signs: Vital Signs: Last Vital Signs Temp 98.0 F 05/12/20 11:30 Pulse 93 05/12/20 11:30 Resp 18 05/12/20 11:30 BP 112/77 05/12/20 11:30 Pulse Ox 95 05/12/20 11:30 Body Mass Index 20.7 Const: General: cooperative, healthy appearing, comfortable and no acute distress Nutritional Appearance: average body habitus Orientation/consci ousness: oriented to person, oriented to place and oriented to time Eyes: General: appearance normal, both eyes and all related structures Chest: Chest palpation & inspection: normal inspection of the chest Resp: Effort & Inspection: normal respiratory effort Cardio: Rate: regular rate GI: Inspection: Yes normal to inspection Skin: Hair: normal Neuro: General: oriented to person, oriented to place and oriented to time Extrem: General: Yes normal to inspection Urology Results Labs CBC & Chem 7: 05/12/20 05:55 05/12/20 05:55 Labs: Laboratory Results - last 24 hr 05/12/20 05/12/20 05/12/20 00:11 00:11 00:11 WBC 13.5 H RBC 3.76 L Hgb 11.8 L Hct 35.6 L MCV 94.7 MCH 31.4 MCHC 33.1 RDW 15.3 Plt Count 234 MPV 9.5 Immature Gran % (Auto) 0.4 Neut % (Auto) 85.2 H Lymph % (Auto) 6.1 L [place] % (Auto) 6.8 Eos % (Auto) 1.0 Baso % (Auto) 0.5 Lymph # (Auto) 0.8 L [place] # (Auto) 0.9 Eos # (Auto) 0.1 Baso # (Auto) 0.1 Abs Immat Gran (auto) 0.06 H Absolute Neuts (auto) 11.5 H Absolute Nucleated RBC 0.000 Nucleated RBC % (auto) 0.0 Smear Tech's Comments Hold Blue Top SEE NOTE Sodium 144 Potassium 3.8 Chloride 112 H Carbon Dioxide 21 L Anion Gap 15 BUN 21 H Creatinine 1.66 H Estim Creat Clear Calc 26.4 Estimated GFR 31 Random Glucose 127 H Lactic Acid Lactic Acid Fup @ 2Hr Lactic Acid Fup @ 4Hr Calcium 8.2 L Total Bilirubin 0.5 AST 18 ALT 9 Alkaline Phosphatase 81 Total Protein 7.2 Albumin 4.2 Lipase 94 H Urine Color Urine Appearance Urine pH Ur Specific [place] Urine Protein Urine Glucose (UA) Urine Ketones Urine Blood Urine Nitrite Ur Leukocyte Esterase Urine RBC Urine WBC Urine WBC Clumps Ur Squamous Epith Cells Urine Bacteria COVID-19 (RICK) COVID-19 Clin Com 05/12/20 05/12/20 05/12/20 00:31 00:39 02:08 WBC RBC Hgb Hct MCV MCH MCHC RDW Plt Count MPV Immature Gran % (Auto) Neut % (Auto) Lymph % (Auto) [place] % (Auto) Eos % (Auto) Baso % (Auto) Lymph # (Auto) [place] # (Auto) Eos # (Auto) Baso # (Auto) Abs Immat Gran (auto) Absolute Neuts (auto) Absolute Nucleated RBC Nucleated RBC % (auto) Smear Tech's Comments Hold Blue Top Sodium Potassium Chloride Carbon Dioxide Anion Gap BUN Creatinine Estim Creat Clear Calc Estimated GFR Random Glucose Lactic Acid 2.2 H* Lactic Acid Fup @ 2Hr Lactic Acid Fup @ 4Hr Calcium Total Bilirubin AST ALT Alkaline Phosphatase Total Protein Albumin Lipase Urine Color STRAW Urine Appearance HAZY Urine pH 6.5 Ur Specific [place] 1.020 Urine Protein TRACE Urine Glucose (UA) NEG Urine Ketones NEG Urine Blood 3+ H Urine Nitrite NEG Ur Leukocyte Esterase TRACE H Urine RBC 50-75 H Urine WBC 30-49 H Urine WBC Clumps NOTED Ur Squamous Epith Cells 2+ Urine Bacteria 3+ COVID-19 (RICK) Negative COVID-19 Clin Com See Note 05/12/20 05/12/20 05/12/20 02:48 03:19 05:55 WBC RBC Hgb Hct MCV MCH MCHC RDW Plt Count MPV Immature Gran % (Auto) Neut % (Auto) Lymph % (Auto) [place] % (Auto) Eos % (Auto) Baso % (Auto) Lymph # (Auto) [place] # (Auto) Eos # (Auto) Baso # (Auto) Abs Immat Gran (auto) Absolute Neuts (auto) Absolute Nucleated RBC Nucleated RBC % (auto) Smear Tech's Comments Hold Blue Top Sodium Potassium Chloride Carbon Dioxide Anion Gap BUN Creatinine Estim Creat Clear Calc Estimated GFR Random Glucose Lactic Acid 3.4 H* Lactic Acid Fup @ 2Hr Cancelled 2.1 H* Lactic Acid Fup @ 4Hr Calcium Total Bilirubin AST ALT Alkaline Phosphatase Total Protein Albumin Lipase Urine Color Urine Appearance Urine pH Ur Specific [place] Urine Protein Urine Glucose (UA) Urine Ketones Urine Blood Urine Nitrite Ur Leukocyte Esterase Urine RBC Urine WBC Urine WBC Clumps Ur Squamous Epith Cells Urine Bacteria COVID-19 (RICK) COVID-19 [employer] 05/12/20 05/12/20 05/12/20 05:55 05:55 08:46 WBC 15.4 H RBC 3.70 L Hgb 11.6 L Hct 35.4 L MCV 95.7 MCH 31.4 MCHC 32.8 RDW 15.4 Plt Count 215 MPV 10.6 Immature Gran % (Auto) 0.5 H Neut % (Auto) 88.5 H Lymph % (Auto) 4.0 L [place] % (Auto) 6.4 Eos % (Auto) 0.3 Baso % (Auto) 0.3 Lymph # (Auto) 0.6 L [place] # (Auto) 1.0 Eos # (Auto) 0.0 Baso # (Auto) 0.1 Abs Immat Gran (auto) 0.07 H Absolute Neuts (auto) 13.7 H Absolute Nucleated RBC 0.000 Nucleated RBC % (auto) 0.0 Smear Tech's Comments VERIFIED Hold Blue Top Sodium 142 Potassium 4.3 Chloride 112 H Carbon Dioxide 19 L Anion Gap 15 BUN 18 H Creatinine 1.44 H Estim Creat Clear Calc 30.3 Estimated GFR 36 Random Glucose 115 Lactic Acid Lactic Acid Fup @ 2Hr Lactic Acid Fup @ 4Hr 2.3 H* Calcium 7.3 L D Total Bilirubin AST ALT Alkaline Phosphatase Total Protein Albumin Lipase Urine Color Urine Appearance Urine pH Ur Specific [place] Urine Protein Urine Glucose (UA) Urine Ketones Urine Blood Urine Nitrite Ur Leukocyte Esterase Urine RBC Urine WBC Urine WBC Clumps Ur Squamous Epith Cells Urine Bacteria COVID-19 (RICK) COVID-19 Clin Com Progress Note: A&P Assessment and plan (1) Calculus of distal left ureter: Status: Acute (2) Acute pyelonephritis: Status: Acute Assessment and Plan: plan for operative manipulation of ureteric catheter Fall Risk Details Current Medications: Current Medications Generic Name Dose Route Start Last Admin Trade Name Freq PRN Reason Stop Dose Admin Acetaminophen 650 mg 05/12/20 05:01 Acetaminophen 325 Mg Tablet PO Q6H PRN Pain, Mild (Pain Scale 1-3) Docusate Sodium 100 mg 05/12/20 05:01 Docusate Sodium 100 Mg Capsule PO DAILY PRN Constipation Ceftriaxone Sodium 1 gm/ 50 mls @ 100 mls/hr 05/12/20 22:00 Sodium Chloride IV Q24H LIZBETH Lactated Ringer's 1,000 mls @ 100 mls/hr 05/12/20 05:01 05/12/20 14:33 Lr IVCONT 0 mls/hr .Q10H LIZBETH Infusion Morphine Sulfate 4 mg 05/12/20 05:01 05/12/20 13:24 Morphine Sulfate 4 Mg/Ml Cartridge IVPUSH 4 mg Q4H PRN Administration Pain, Severe (Pain Scale 7-10) Ondansetron HCl 4 mg 05/12/20 05:01 Ondansetron Hcl 4 Mg/2 Ml Vial IVPUSH Q8H PRN Nausea and Vomiting Sodium Chloride 3 ml 05/12/20 08:00 05/12/20 07:52 0.9 % Sodium Chloride Flush 3 Ml Syringe IVFLUSH Not Given QSHIFT LIBZETH Tamsulosin HCl 0.4 mg 05/12/20 09:00 05/12/20 09:45 Tamsulosin Hcl 0.4 Mg Capsule PO 0.4 mg DAILY LIZBETH Administration Time Spent With Patient Time: Total time spent is greater than 50% in coordination of care (as documented) at patient's floor/unit and/or counseling patient: Time with patient: less than 15 minutes
--- NOTE | 2020-05-12 14:45 | P.CONAN_ITS ---
HPI - Anesthesia Eval Consult details Narrative: 65 F with Hfref, ICD and cardiomyopathy EF 33% p/f emergent ureteral stent repositioning per urology. pt last ate 2 hours ago. but urology feels should proceed emergently given puscollection at the site, inability to drain and rising lactate. will proceed. patient understands and accepts aspiration risk. [facility] Past Medical History Medical History CAD (coronary artery disease) Cardiomyopathy Chronic heart failure with reduced ejection fraction and diastolic dysfunction HTN (hypertension) Hyperlipidemia ICD (implantable cardioverter-defibrillator) in place Family History Family History Father Diabetes HTN (hypertension) Mother Diabetes HTN (hypertension) Sister Throat cancer Surgical History Surgical History Hx of colonoscopy Stented coronary artery Social History Social History Household Members: None Housing: Apartment Do you presently have visiting nurse or other home services: No Alcohol intake: current Alcohol intake frequency: holidays/special occasions only Alcohol type: beer Smoking Status: Never smoker Tobacco Type: Cigarette Cigarettes Per Day: 3 Use of substances other than those prescribed or required for medical reasons: Yes Substance Use Type: Marijuana Substance Use Frequency: Monthly Currently Displaying Signs/Symptoms of Drug Intoxication Withdrawal: No Have you been hit, kicked, punched, or otherwise hurt by someone within the past year? If so, by whom?: No Do you feel safe in your current relationship?: Yes Is there a partner from a previous relationship who is making you feel unsafe now?: No Are you made to feel afraid or neglected: No Advance Directives: No Do you have thoughts of harming others: None Do you have a plan to hurt others: No Plan Recently lost weight without trying: Unsure service: No Current occupational status: unemployed Meds Allergies Allergy/AdvReac Type Severity Reaction Status Date / Time Iodinated Contrast Media Allergy Severe ANGIOEDEMA Verified 04/01/20 08:46 [CONTRAST,IV] Home Medications Medication Instructions Recorded Confirmed Type hydrocortisone 2.5 % topical cream 1 applic ME BID-QID PRN 03/31/20 03/31/20 History with perineal applicator [id number]-[id number] 1 cap PO TID cap 03/31/20 03/31/20 History 3,000-9,500-15,000 unit capsule,delayed releas methylcellulose (laxative) 500 mg 500 mg PO BID 03/31/20 03/31/20 History tablet Exam Exam Date and Time: May 12, 2020 1445 Height,Weight and Vital Signs: Height 5 ft 2 in Weight 51.6 kg Last Vital Signs Temp 98.5 F 05/12/20 14:33 Pulse 89 05/12/20 14:33 Resp 16 05/12/20 14:33 BP 127/87 05/12/20 14:33 Pulse Ox 96 05/12/20 14:33 Pertinent Lab Results Pertinent Lab Results: Laboratory Tests 05/12/20 05/12/20 05/12/20 00:11 00:11 00:11 WBC 13.5 H RBC 3.76 L Hgb 11.8 L Hct 35.6 L MCV 94.7 MCH 31.4 MCHC 33.1 RDW 15.3 Plt Count 234 MPV 9.5 Immature Gran % (Auto) 0.4 Neut % (Auto) 85.2 H Lymph % (Auto) 6.1 L [place] % (Auto) 6.8 Eos % (Auto) 1.0 Baso % (Auto) 0.5 Lymph # (Auto) 0.8 L [place] # (Auto) 0.9 Eos # (Auto) 0.1 Baso # (Auto) 0.1 Abs Immat Gran (auto) 0.06 H Absolute Neuts (auto) 11.5 H Absolute Nucleated RBC 0.000 Nucleated RBC % (auto) 0.0 Smear Tech's Comments Hold Blue Top SEE NOTE Sodium 144 Potassium 3.8 Chloride 112 H Carbon Dioxide 21 L Anion Gap 15 BUN 21 H Creatinine 1.66 H Estim Creat Clear Calc 26.4 Estimated GFR 31 Random Glucose 127 H Lactic Acid Lactic Acid Fup @ 2Hr Lactic Acid Fup @ 4Hr Calcium 8.2 L Total Bilirubin 0.5 AST 18 ALT 9 Alkaline Phosphatase 81 Total Protein 7.2 Albumin 4.2 Lipase 94 H Urine Color Urine Appearance Urine pH Ur Specific [place] Urine Protein Urine Glucose (UA) Urine Ketones Urine Blood Urine Nitrite Ur Leukocyte Esterase Urine RBC Urine WBC Urine WBC Clumps Ur Squamous Epith Cells Urine Bacteria COVID-19 (RICK) COVID-19 Clin Com 05/12/20 05/12/20 05/12/20 00:31 00:39 02:08 WBC RBC Hgb Hct MCV MCH MCHC RDW Plt Count MPV Immature Gran % (Auto) Neut % (Auto) Lymph % (Auto) [place] % (Auto) Eos % (Auto) Baso % (Auto) Lymph # (Auto) [place] # (Auto) Eos # (Auto) Baso # (Auto) Abs Immat Gran (auto) Absolute Neuts (auto) Absolute Nucleated RBC Nucleated RBC % (auto) Smear Tech's Comments Hold Blue Top Sodium Potassium Chloride Carbon Dioxide Anion Gap BUN Creatinine Estim Creat Clear Calc Estimated GFR Random Glucose Lactic Acid 2.2 H* Lactic Acid Fup @ 2Hr Lactic Acid Fup @ 4Hr Calcium Total Bilirubin AST ALT Alkaline Phosphatase Total Protein Albumin Lipase Urine Color STRAW Urine Appearance HAZY Urine pH 6.5 Ur Specific [place] 1.020 Urine Protein TRACE Urine Glucose (UA) NEG Urine Ketones NEG Urine Blood 3+ H Urine Nitrite NEG Ur Leukocyte Esterase TRACE H Urine RBC 50-75 H Urine WBC 30-49 H Urine WBC Clumps NOTED Ur Squamous Epith Cells 2+ Urine Bacteria 3+ COVID-19 (RICK) Negative COVID-[employer] See Note 05/12/20 05/12/20 05/12/20 02:48 03:19 05:55 WBC RBC Hgb Hct MCV MCH MCHC RDW Plt Count MPV Immature Gran % (Auto) Neut % (Auto) Lymph % (Auto) [place] % (Auto) Eos % (Auto) Baso % (Auto) Lymph # (Auto) [place] # (Auto) Eos # (Auto) Baso # (Auto) Abs Immat Gran (auto) Absolute Neuts (auto) Absolute Nucleated RBC Nucleated RBC % (auto) Smear Tech's Comments Hold Blue Top Sodium Potassium Chloride Carbon Dioxide Anion Gap BUN Creatinine Estim Creat Clear Calc Estimated GFR Random Glucose Lactic Acid 3.4 H* Lactic Acid Fup @ 2Hr Cancelled 2.1 H* Lactic Acid Fup @ 4Hr Calcium Total Bilirubin AST ALT Alkaline Phosphatase Total Protein Albumin Lipase Urine Color Urine Appearance Urine pH Ur Specific [place] Urine Protein Urine Glucose (UA) Urine Ketones Urine Blood Urine Nitrite Ur Leukocyte Esterase Urine RBC Urine WBC Urine WBC Clumps Ur Squamous Epith Cells Urine Bacteria COVID-19 (RICK) COVID-19 Clin Com 05/12/20 05/12/20 05/12/20 05:55 05:55 08:46 WBC 15.4 H RBC 3.70 L Hgb 11.6 L Hct 35.4 L MCV 95.7 MCH 31.4 MCHC 32.8 RDW 15.4 Plt Count 215 MPV 10.6 Immature Gran % (Auto) 0.5 H Neut % (Auto) 88.5 H Lymph % (Auto) 4.0 L [place] % (Auto) 6.4 Eos % (Auto) 0.3 Baso % (Auto) 0.3 Lymph # (Auto) 0.6 L [place] # (Auto) 1.0 Eos # (Auto) 0.0 Baso # (Auto) 0.1 Abs Immat Gran (auto) 0.07 H Absolute Neuts (auto) 13.7 H Absolute Nucleated RBC 0.000 Nucleated RBC % (auto) 0.0 Smear Tech's Comments VERIFIED Hold Blue Top Sodium 142 Potassium 4.3 Chloride 112 H Carbon Dioxide 19 L Anion Gap 15 BUN 18 H Creatinine 1.44 H Estim Creat Clear Calc 30.3 Estimated GFR 36 Random Glucose 115 Lactic Acid Lactic Acid Fup @ 2Hr Lactic Acid Fup @ 4Hr 2.3 H* Calcium 7.3 L D Total Bilirubin AST ALT Alkaline Phosphatase Total Protein Albumin Lipase Urine Color Urine Appearance Urine pH Ur Specific [place] Urine Protein Urine Glucose (UA) Urine Ketones Urine Blood Urine Nitrite Ur Leukocyte Esterase Urine RBC Urine WBC Urine WBC Clumps Ur Squamous Epith Cells Urine Bacteria COVID-19 (RICK) COVID-19 Clin Com Airway Mallampati Class: II TM Dist: >3cm Loose/Missing/Broken Teeth: Yes Heart: rrr Lungs: n l Other: ao Assessment and Plan Assessment Anesthesia Assessment: Anesthesia Plan Discussed and Chart Reviewed Final Anesthetic Review NPO: No (Last ate sandwich at 12pm) ASA Class: IV and Emergency Final Preanesthetic Review: No Changes in Pt Med Stat, Meds/Allgs Chart Reviewed, Consent Obtained/Reviewed and Anes Risks/Benef Reviewed Patient Risk: High Procedure Risk: Low Anesthetic Plan Anesthetic Plan: MAC: Disposition: Standard PACU and Inp. Admit - Standard Bed
--- NOTE | 2020-05-12 15:22 | PM.OP ---
Brief Operative Note Date of Service: 05/12/20 Pre-op diagnosis: left distal ureteric stone Post-op diagnosis: same Procedure: 1 cystoscopy left retrograde 2 ureteroscopy with left laser of stone and basketing 3. ureteroscopy with stent repositioning Implants: 6 [place] multi variable length stent Surgeon: Paul Rose MD Anesthesia: MAC Estimated blood loss (mL): 0 Pathology: other Condition: stable Disposition: floor
--- NOTE | 2020-05-12 15:23 | W.PM.OPN ---
Operative Note Operative Note Date of Service: 05/12/20 Narrative: PreOperative Diagnosis: left distal ureteric stone Post Operative Diagnosis: left distal ureteric stone Procedure: - cystoscopy, retrograde - ureteroscopy, laser lithotripsy stone basketing - Stent repositioning Surgeon: Dr Paul Rose Anesthesia: General Indications for procedure: 65-year-old female with rising lactate. Distal stone with infection. Stent had been placed at bedside but end of stent had been lost of ureter Here for stent repositioning and definitive stone management Procedure: After informed consent was verified patient was brought to the operating placed in supine position. Anesthesia was administered per protocol. Patient was placed in modified dorsal lithotomy position and prepped and draped in a sterile fashion. Safety pause time-out and side of surgery confirmed. Antibiotics confirmed. 23 English cystoscope inserted per urethra. Left ureteric orifice seen. Retrograde examination performed. Stent could be seen having migrated. Sensor guidewire placed without difficulty. Ureteral scope placed. Urea scope placed into ureteric orifice alongside wire. Stone encountered. Holmium laser used to break stone into pieces and pieces were basketed free. ureteral scope placed. Stone stent encountered in distal 3rd. Stent grossed with ZeroTip basket and repositioned so good coil seen in bladder good coil seen in the kidney. Bladder was emptied She tolerated procedure well was extubated in operating room transferred in stable condition recovery area. Pathology: Stone Drains: 6 English by multi variable length stent
[2020-05-12] MEDS: Phenazopyridine HCL 100 MG TABLET PO (16:24)
[2020-05-12] MEDS: Acetaminophen 325 MG TABLET 650 MG PO (19:13)
[2020-05-12] MEDS: 0.9 % Sodium Chloride Flush 3 ML SYRINGE IVFLUSH (21:26)
[2020-05-13] VITALS (9 sets, daily range): BP systolic 120–180; BP diastolic 68–100; PULSE 85–106; RESP 18–22; TEMP 36.8–37.4; O2SAT 95–100; BMI 22.3
[2020-05-13] MEDS: traMADoL HCL 50 MG TABLET PO ×3 (01:08→21:57)
[2020-05-13] MEDS: Lactated Ringers 1,000 ML 100 ML IVCONT ×2 (02:00→12:31)
[2020-05-13 06:43] LABS: Hematocrit 29.7 % (37-47); Hemoglobin 9.9 g/dl (12.0-16.0); Mean Corpuscular HGB Conc 33.3 g/dl (31.0-35.0); Mean Corpuscular Hemoglobin 30.7 pg (27.0-33.0); Mean Corpuscular Volume 92.2 fL (80-98); Mean Platelet Volume 10.3 fL (9.4-12.3); Platelet Count 197 X10*3/uL (160-400); Red Blood Count 3.22 X10*6/uL (4.20-5.50); White Blood Count 16.7 X10*3/uL (4.8-10.8)
[2020-05-13 07:16] LABS: Anion Gap 13 (12-20); Blood Urea Nitrogen 16 mg/dL (9-16); Calcium 7.5 mg/dL (8.4-10.2); Carbon Dioxide 21 mmol/L (22-29); Chloride 109 mmol/L (96-108); Creatinine Clr Calc Pharmacy 40.9; Estimated Glomerular Filt Rate 51; Glucose Random 82 mg/dL (60-115); Potassium 3.6 mmol/l (3.3-5.1); Sodium 139 mmol/L (135-145)
[2020-05-13] MEDS: Tamsulosin HCL 0.4 MG CAPSULE PO (08:42)
--- NOTE | 2020-05-13 09:46 | HO.POSTANES ---
Post Anesthesia Evaluation Post Anesthesia Evaluation Vital Signs: Vital Signs Temp Pulse Resp BP Pulse Ox 05/13/20 07:38 98.4 F 92 20 146/91 H 95 05/13/20 03:52 98.3 F 102 H 18 141/68 H 97 05/12/20 23:30 98.2 F 100 18 111/79 96 Anesthesia: General LMA and General Mental Status: Awake Pain Control: Satisfactory Nausea/Vomiting: None Hydration: Adequate Anesthesia-Related Issues: No Anes. Related Issues
[2020-05-13] MEDS: Morphine Sulfate 4 MG/ML CARTRIDGE IVPUSH (12:28)
--- NOTE | 2020-05-13 16:08 | P.PNIM_ITS ---
Subjective Subjective Date of Service: 05/13/20 Interval History: Patient seen in follow-up of left ureteric stone and infection, at present patient denies left flank pain but complained of soreness lower back, noted to have elevated blood pressure, no other acute issues overnight. Review of Systems General no headache, no dizziness, no fever chills. CVS no chest pain, no palpitation. Respiratory no cough , no shortness of breath Gastrointestinal no nausea, no vomiting, no abdominal pain Physical Exam Vital Signs: Vital Signs: Last Vital Signs Temp 98.7 F 05/13/20 15:39 Pulse 85 05/13/20 15:39 Resp 18 05/13/20 15:39 BP 166/98 H 05/13/20 15:39 Pulse Ox 100 05/13/20 15:39 Body Mass Index 22.3 General patient resting comfortably in no acute distress. Neck is supple no JVD. CVS regular rate rhythm, Respiratory lungs clear to auscultation, no respiratory distress, no wheeze, no rhonchi. Gastrointestinal abdomen soft, nontender, bowel sounds audible, no guarding , no rigidity. Extremities no clubbing cyanosis or edema. Back no CVA tenderness Neuro nonfocal patient moving all 4 extremity speech clear. Skin no rash Objective Data Current Medications Generic Name Dose Route Start Last Admin Trade Name Freq PRN Reason Stop Dose Admin Acetaminophen 650 mg 05/12/20 05:01 05/12/20 19:13 Acetaminophen 325 Mg Tablet PO 650 mg Q6H PRN Administration Pain, Mild (Pain Scale 1-3) Docusate Sodium 100 mg 05/12/20 05:01 Docusate Sodium 100 Mg Capsule PO DAILY PRN Constipation Ceftriaxone Sodium 1 gm/ 50 mls @ 100 mls/hr 05/12/20 22:00 05/12/20 22:29 Sodium Chloride IV Infused Q24H LIZBETH Infusion Lactated Ringer's 1,000 mls @ 100 mls/hr 05/12/20 05:01 05/13/20 12:31 Lr IVCONT 100 mls/hr .Q10H LIZBETH Administration Morphine Sulfate 4 mg 05/12/20 05:01 05/13/20 12:28 Morphine Sulfate 4 Mg/Ml Cartridge IVPUSH 4 mg Q4H PRN Administration Pain, Severe (Pain Scale 7-10) Ondansetron HCl 4 mg 05/12/20 05:01 Ondansetron Hcl 4 Mg/2 Ml Vial IVPUSH Q8H PRN Nausea and Vomiting Sodium Chloride 3 ml 05/12/20 08:00 05/13/20 08:42 0.9 % Sodium Chloride Flush 3 Ml Syringe IVFLUSH Not Given QSHIFT LIZBETH Tamsulosin HCl 0.4 mg 05/12/20 09:00 05/13/20 08:42 Tamsulosin Hcl 0.4 Mg Capsule PO 0.4 mg DAILY LIZBETH Administration Tramadol HCl 50 mg 05/12/20 15:15 05/13/20 08:45 Tramadol Hcl 50 Mg Tablet PO 50 mg Q6H PRN Administration Pain, Moderate (Pain Scale 4-6 Labs CBC & Chem 7: 05/13/20 05:37 05/13/20 05:37 Microbiology Microbiology Results: Microbiology 05/12/20 Unknown Urine clean catch - Clean Catch Midstream Urine Culture - Preliminary Gram negative gato 05/12/20 01:01 Blood - Venous Blood Culture - Preliminary Gram negative gato 05/12/20 01:01 Blood - Venous Blood Culture - Preliminary Gram negative gato Assessment and Plan (1) Calculus of distal left ureter: Status: Acute (2) Sepsis: Status: Acute (3) Acute pyelonephritis: Status: Acute (4) Chronic heart failure with reduced ejection fraction and diastolic dysfunction: Status: Acute (5) Cardiomyopathy: Status: Acute (6) ICD (implantable cardioverter-defibrillator) in place: Problem details: [facility], single-chamber for primary prevention, April 2014 Status: Acute (7) CAD (coronary artery disease): Status: Acute (8) HTN (hypertension): Status: Acute (9) Hyperlipidemia: Status: Acute Assessment and Plan: 65-year-old female with past medical history of nephrolithiasis as well as pyelonephritis who presents to the hospital with flank pain. Found to have kidney stone as well as UTI. # Sepsis secondary to pyelonephritis, with distal left ureter stone/gram- negative bacteremia Left flank pain resolved blood cultures and urine culture positive for gram-negative rods, persistent leukocytosis, no fevers, tachycardia resolved Status post cystoscopy, stent placement, laser lithotripsy, stone basketing by Dr. Rose Continue iv ceftriaxone day 2 # lactic acidosis secondary to sepsis and dehydration improved. # acute renal failure resolved likely related to obstructive uropathy, patient has atrophic left kidney and bilateral renal stones. # history of coronary artery disease - on carvedilol,and Entresto at home, requested pharmacy to do med reconciliation. # history of cardiomyopathy with reduced EF does not appear to be in exacerbation will resume Entresto and carvedilol DVT prophylaxis: Lovenox
[2020-05-13] MEDS: 0.9 % Sodium Chloride Flush 3 ML SYRINGE IVFLUSH ×2 (17:25→21:55)
[2020-05-13] MEDS: Fluticasone Propionate 100 MCG BLST.W.DEV 2 PUFF INHALE (19:48)
[2020-05-13] MEDS: Gabapentin 300 MG CAPSULE PO (21:54)
[2020-05-13] MEDS: cefTRIAXone sodium 1 GM in 0.9 % Sodium Chloride 50 ML IV (21:54)
[2020-05-13] MEDS: Mirtazapine 15 MG TABLET PO (21:55)
[2020-05-13] MEDS: carvediloL 12.5 MG TABLET 37.5 MG PO (21:55)
[2020-05-14] VITALS: BP 157/91; PULSE 81; RESP 20; TEMP 37.1; O2SAT 98
[2020-05-14] MEDS: Lactated Ringers 1,000 ML 100 ML IVCONT ×2 (02:45→09:17)
[2020-05-14 04:00] VITALS: BP 177/93; PULSE 91; RESP 18; TEMP 35.7; O2SAT 98
[2020-05-14] MEDS: Omeprazole 20 MG CAPSULE.DR PO (05:41)
[2020-05-14 06:00] VITALS: BMI 22.4
[2020-05-14 06:25] LABS: MANUAL DIFF FLAG NO
[2020-05-14 06:32] LABS: Basophils Percent Auto 0.3 % (0-2); Eosinophils Absolute Auto 0.2 X10*3/uL (0.0-0.4); Eosinophils Percent Auto 1.9 % (0-4); Hematocrit 28.3 % (37-47); Hemoglobin 9.6 g/dl (12.0-16.0); Imm Gran Abs Auto 0.02 X10*3/uL (0.00-0.03); Imm Gran Pct Auto 0.2 % (0.0-0.4); Lymphocytes Absolute Auto 1.9 X10*3/uL (1.2-4.9); Mean Corpuscular HGB Conc 33.9 g/dl (31.0-35.0); Mean Corpuscular Hemoglobin 30.8 pg (27.0-33.0); Mean Corpuscular Volume 90.7 fL (80-98); Mean Platelet Volume 10.1 fL (9.4-12.3); Monocytes Absolute Auto 0.8 X10*3/uL (0.1-1.2); Monocytes Percent Auto 9.3 % (2-11); Neutrophils Absolute Auto 5.9 X10*3/uL (2.0-8.3); Neutrophils Percent Auto 66.3 % (45-73); Platelet Count 177 X10*3/uL (160-400); Red Blood Count 3.12 X10*6/uL (4.20-5.50); Red Cell Distribution Width 14.7 % (11.0-16.0); White Blood Count 8.8 X10*3/uL (4.8-10.8)
[2020-05-14 06:53] LABS: Anion Gap 15 (12-20); Blood Urea Nitrogen 10 mg/dL (9-16); Calcium 7.8 mg/dL (8.4-10.2); Carbon Dioxide 22 mmol/L (22-29); Chloride 107 mmol/L (96-108); Creatinine Clr Calc Pharmacy 42.8; Estimated Glomerular Filt Rate 54; Glucose Random 65 mg/dL (60-115); Potassium 3.6 mmol/l (3.3-5.1); Sodium 140 mmol/L (135-145)
[2020-05-14 07:49] VITALS: BP 168/97; PULSE 85; RESP 18; TEMP 36.8; O2SAT 97
[2020-05-14] MEDS: Fluticasone Propionate 100 MCG BLST.W.DEV 2 PUFF INHALE (07:53)
[2020-05-14 07:54] VITALS: PULSE 98; O2SAT 98
[2020-05-14] MEDS: carvediloL 12.5 MG TABLET 37.5 MG PO (09:22)
[2020-05-14] MEDS: traMADoL HCL 50 MG TABLET PO (09:22)
[2020-05-14] MEDS: Gabapentin 300 MG CAPSULE PO (09:22)
[2020-05-14] MEDS: Tamsulosin HCL 0.4 MG CAPSULE PO (09:22)
[2020-05-14 11:19] VITALS: BP 153/86; PULSE 81; RESP 18; TEMP 36.7; O2SAT 98
--- NOTE | 2020-05-14 12:12 | P.DS_ITS ---
DS: Providers Provider Date of admission: 05/12/20 01:58 Primary care physician: Unknown Physician Consults: 05/12/20 05:01 Consult to Urology Routine Consulting Provider: Paul Rose Reason for consultation: infected urolithiasis Has provider been notified: No DS: Diagnosis Discharge Diagnosis (1) Calculus of distal left ureter: Status: Acute (2) Sepsis: Status: Acute (3) Acute pyelonephritis: Status: Acute (4) Chronic heart failure with reduced ejection fraction and diastolic dysfunction: Status: Acute (5) Cardiomyopathy: Status: Acute (6) ICD (implantable cardioverter-defibrillator) in place: Status: Acute (7) CAD (coronary artery disease): Status: Acute (8) HTN (hypertension): Status: Acute (9) Hyperlipidemia: Status: Acute (10) E coli bacteremia: Status: Acute DS: Medications Discharge Medications Home Medications: Home Medications Medication Instructions Recorded Confirmed methylcellulose (laxative) 500 mg 500 mg PO BID PRN 03/31/20 05/13/20 tablet acetaminophen 500 mg PO Q6H PRN 05/13/20 05/13/20 albuterol sulfate [ProAir HFA] 2 puff INHALATION Q4-6H PRN 05/13/20 05/13/20 ascorbic acid (vitamin C) 250 mg PO BID 05/13/20 05/13/20 atorvastatin 40 mg PO BEDTIME 05/13/20 05/13/20 calcium carbonate-vitamin D3 1 tab PO BID 05/13/20 05/13/20 [Calcium 600 + D(3)] dicyclomine 20 mg PO QID 05/13/20 05/13/20 ferrous gluconate 324 mg PO BID 05/13/20 05/13/20 fluoxetine 20 mg PO DAILY 05/13/20 05/13/20 fluticasone propionate 2 puff INHALATION BID 05/13/20 05/13/20 gabapentin 300 mg PO BID 05/13/20 05/13/20 mirtazapine 30 mg PO BEDTIME 05/13/20 05/13/20 omeprazole 20 mg PO BID@0630,1630 05/13/20 05/13/20 Previous Rx's Medication Instructions Recorded sacubitril 97 mg-valsartan 103 mg 1 tab PO BID 90 Days #180 tab 04/27/20 tablet imipramine HCl 10 mg tablet 10 mg PO BEDTIME #30 tab 04/28/20 carvedilol 25 mg tablet 37.5 mg PO BID 90 Days #270 tab 05/07/20 cefuroxime axetil 500 mg PO Q12H #22 tab 05/14/20 tamsulosin 0.4 mg PO DAILY #30 cap 05/14/20 DS: Summary Hospital Course Hospital Course: Admission note HPI this is a 65-year-old female with extensive past medical history as below who presents to the hospital with complaints of left flank pain. Patient received pain medication is very lethargic, history is obtained mostly from ED physician and chart. diffuse the patient has left flank pain associated with nausea and vomiting, denies any fever, or chills. Patient is also denying any urinary symptoms. unable to obtain complete review of system. on arrival to the ED patient hemodynamically stable with a pulse rate of 116, blood pressure of 2 6/131. Currently has a temperature of 99.2?, pulse rate of 100, respiratory rate of 18, blood pressure 149/89. Satting 95% on room air. Labs are significant for WBC count of 13.5,hemoglobin of 11.8, lactic acid of 2.2, lipase of 94. UA that is positive for blood, leukocyte Estrace, and WBC. COVID-[address] shows a 5 mm calculus within the distal left ureter, associated with moderate to severe left hydronephrosis. Chronic atrophy and multifocal scarring of the left kidney and minimal focal scarring of the right lower kidney. Patient does have history of UTI and pyelonephritis. Most recently admitted in January for pyelonephritis. Past medical history is obtained Mostly from chart. Hospital course The patient was admitted to the hospital for treatment of infected obstructive stone with sepsis. Images were concerning for moderate hydronephrosis with kidney function suggestive of acute kidney injury. The patient was started on ceftriaxone with fair response. She was evaluated by Dr. Rose from Urology who placed a stent in the left ureter and removed the stone. Blood cultures grew sensitive E coli. She continue treatment with ceftriaxone for 3 days. To be discharged home on Ceftin to finish total of 14 days. To start using tamsulosin for now. to follow-up with urology as outpatient Time Spent with Patient Time attestation: Total time spent providing and/or coordinating discharge services: Physical Exam Vital Signs: Vital Signs: Last Vital Signs Temp 98.1 F 05/14/20 11:19 Pulse 81 05/14/20 11:19 Resp 18 05/14/20 11:19 BP 153/86 H 05/14/20 11:19 Pulse Ox 98 05/14/20 11:19 Body Mass Index 22.4 Constitutional : Alert, oriented, not in distress Neck : Normal inspection, Supple Cardiovascular : RRR, S1 S2, no lower extremity edema Respiratory : Good bilateral air entry, no crackles, wheezes or rhonchi Gastrointestinal: soft, lax, Normal bowel sounds, Non tender Skin : Warm/Dry, No rash Neurological : Alert & oriented x3, No focal deficit DS: Data Data Completed and Pending Pending studies at discharge: Pending at discharge 05/12/20 15:10 Surgical [PTH] Routine Labs on day of discharge: 05/11/20 23:45 0.9 % Sodium Chloride [Ns] 1,000 ml IVCONT 999 mls/hr 05/11/20 23:57 Complete Blood Count Auto Diff Stat Comprehensive Met. Panel Stat Hold Lt Blue - Possible Coag Stat Lipase Stat Blood Culture X2 [BC] Stat 05/11/20 23:58 Morphine Sulfate 4 mg IVPUSH ONCE ONE ondansetron HCL [Zofran] 4 mg IVPUSH ONCE ONE 05/12/20 ECG 12 lead EKG Stat Urine Culture Routine 05/12/20 00:02 CT abdomen pelvis wo con Stat 05/12/20 00:31 Lactic Acid Stat 05/12/20 01:09 cefTRIAXone sodium [Rocephin] 1 gm 0.9 % Sodium Chloride [Ns] 50 ml IV ONCE 05/12/20 01:12 cefTRIAXone sodium [Rocephin] 1 gm .ROUTE .STK-MED ONE 05/12/20 01:15 0.9 % Sodium Chloride [Ns] 1,000 ml IVCONT 999 mls/hr 05/12/20 01:48 HYDROmorphone HCl [Dilaudid] 0.5 mg IVPUSH ONCE ONE 05/12/20 01:52 Transfer Order Routine 05/12/20 02:08 COVID-19 ID NOW (Amaral) Stat 05/12/20 02:52 Labetalol HCL [Normodyne] 100 mg PO ONCE ONE 05/12/20 03:19 Lactic Acid Stat 05/12/20 05:01 Enoxaparin Sodium [Lovenox] 40 mg SUBCUT Q24H Lactated Ringers [Lr] 1,000 ml IVCONT 100 mls/hr Lactated Ringers [Lr] 1,000 ml IVCONT 80 mls/hr 05/12/20 05:55 Basic Metabolic Panel Routine Complete Blood Count Auto Diff Routine SLIDE REVIEW Routine ~Lactic Acid-LAB USE ONLY Stat 05/12/20 08:12 EKG Documentation DIRECTED 05/12/20 08:46 ~Lactic Acid-LAB USE ONLY Stat 05/12/20 14:20 iohexoL 300 MG/ML [Omnipaque 300 MG/ML] 50 ml IV .STK-MED ONE 05/12/20 14:22 FL guidance in OR Stat 05/12/20 14:30 Lidocaine HCl 2 % MPF [Xylocaine 2 % MPF] 5 ml .ROUTE .STK-MED ONE Midazolam HCl/PF [Versed] 2 mg .ROUTE .STK-MED ONE fentaNYL citrate/PF [Sublimaze] 50 mcg .ROUTE .STK-MED ONE propofoL [Diprivan] 200 mg IVPUSH .STK-MED ONE 05/12/20 14:33 Succinylcholine Chloride [Quelicin] 100 mg IVPUSH .STK-MED ONE 05/12/20 14:52 Ketamine HCl/NS 50 mg IVPUSH .STK-MED ONE 05/12/20 15:15 Phenazopyridine HCL [Pyridium] 100 mg PO ONCE ONE 05/12/20 15:16 Transfer Order Routine 05/12/20 21:18 cefTRIAXone sodium [Rocephin] 1 gm .ROUTE .STK-MED ONE 05/13/20 05:37 Basic Metabolic Panel DAILY@0600 Complete Blood Count no Diff DAILY@0600 05/13/20 21:42 cefTRIAXone sodium [Rocephin] 1 gm .ROUTE .STK-MED ONE 05/14/20 05:26 Basic Metabolic Panel Routine Complete Blood Count Auto Diff Routine Laboratory Last Values WBC 8.8 X10*3/uL (4.8-10.8) 05/14/20 05:26 RBC 3.12 X10*6/uL (4.20-5.50) L 05/14/20 05:26 Hgb 9.6 g/dl (12.0-16.0) L 05/14/20 05:26 Hct 28.3 % (37-47) L 05/14/20 05:26 MCV 90.7 fL (80-98) 05/14/20 05:26 MCH 30.8 pg (27.0-33.0) 05/14/20 05:26 MCHC 33.9 g/dl (31.0-35.0) 05/14/20 05:26 RDW 14.7 % (11.0-16.0) 05/14/20 05:26 Plt Count 177 X10*3/uL (160-400) 05/14/20 05:26 MPV 10.1 fL (9.4-12.3) 05/14/20 05:26 Immature Gran % (Auto) 0.2 % (0.0-0.4) 05/14/20 05:26 Neut % (Auto) 66.3 % (45-73) 05/14/20 05:26 Lymph % (Auto) 22.0 % (20-40) 05/14/20 05:26 [place] % (Auto) 9.3 % (2-11) 05/14/20 05:26 Eos % (Auto) 1.9 % (0-4) 05/14/20 05:26 Baso % (Auto) 0.3 % (0-2) 05/14/20 05:26 Lymph # (Auto) 1.9 X10*3/uL (1.2-4.9) 05/14/20 05:26 [place] # (Auto) 0.8 X10*3/uL (0.1-1.2) 05/14/20 05:26 Eos # (Auto) 0.2 X10*3/uL (0.0-0.4) 05/14/20 05:26 Baso # (Auto) 0.0 X10*3/uL (0.0-0.2) 05/14/20 05:26 Abs Immat Gran (auto) 0.02 X10*3/uL (0.00-0.03) 05/14/20 05:26 Absolute Neuts (auto) 5.9 X10*3/uL (2.0-8.3) 05/14/20 05:26 Absolute Nucleated RBC 0.000 X10*3/uL (0.0-0.012) 05/14/20 05:26 Nucleated RBC % (auto) 0.0 /100WBC (0.0-0.2) 05/14/20 05:26 Smear Tech's Comments VERIFIED 05/12/20 05:55 Hold Blue Top SEE NOTE 05/12/20 00:11 Sodium 140 mmol/L (135-145) 05/14/20 05:26 Potassium 3.6 mmol/l (3.3-5.1) 05/14/20 05:26 Chloride 107 mmol/L (96-108) 05/14/20 05:26 Carbon Dioxide 22 mmol/L (22-29) 05/14/20 05:26 Anion Gap 15 (12-20) 05/14/20 05:26 BUN 10 mg/dL (9-16) 05/14/20 05:26 Creatinine 1.02 mg/dL (0.5-1.4) 05/14/20 05:26 Estim Creat Clear Calc 42.8 05/14/20 05:26 Estimated GFR 54 05/14/20 05:26 Random Glucose 65 mg/dL (60-115) 05/14/20 05:26 Lactic Acid 3.4 mmol/L (0.5-2.0) H* 05/12/20 03:19 Lactic Acid Fup @ 2Hr 2.1 mmol/L (0.5-2.0) H* 05/12/20 05:55 Lactic Acid Fup @ 4Hr 2.3 mmol/L (0.5-2.0) H* 05/12/20 08:46 Calcium 7.8 mg/dL (8.4-10.2) L 05/14/20 05:26 Total Bilirubin 0.5 mg/dL (0.0-1.0) 05/12/20 00:11 AST 18 U/L (5-31) 05/12/20 00:11 ALT 9 U/L (0-31) 05/12/20 00:11 Alkaline Phosphatase 81 U/L (39-117) 05/12/20 00:11 Total Protein 7.2 g/dL (6.5-8.0) 05/12/20 00:11 Albumin 4.2 g/dL (3.5-5.0) 05/12/20 00:11 Lipase 94 U/L (8-78) H 05/12/20 00:11 Urine Color STRAW 05/12/20 00:39 Urine Appearance HAZY 05/12/20 00:39 Urine pH 6.5 (5.0-8.0) 05/12/20 00:39 Ur Specific [place] 1.020 (1.005-1.025) 05/12/20 00:39 Urine Protein TRACE MG/DL (NEG-TRACE) 05/12/20 00:39 Urine Glucose (UA) NEG MG/DL (NEG) 05/12/20 00:39 Urine Ketones NEG MG/DL (NEG) 05/12/20 00:39 Urine Blood 3+ (NEG) H 05/12/20 00:39 Urine Nitrite NEG (NEG) 05/12/20 00:39 Ur Leukocyte Esterase TRACE (NEG) H 05/12/20 00:39 Urine RBC 50-75 /HPF (0) H 05/12/20 00:39 Urine WBC 30-49 /HPF (0-4) H 05/12/20 00:39 Urine WBC Clumps NOTED 05/12/20 00:39 Ur Squamous Epith Cells 2+ /LPF 05/12/20 00:39 Urine Bacteria 3+ /LPF 05/12/20 00:39 COVID-19 (RICK) Negative (Negative) 05/12/20 02:08 COVID-19 Clin Com See Note 05/12/20 02:08 Discharge Plan Discharge Patient Disposition: Home, Self-Care Referrals: Physician,Unknown [Primary Care Provider] - Discharge Medications: New tamsulosin 0.4 mg Capsule 0.4 mg PO DAILY Qty: 30 RF: 0 cefuroxime axetil 500 mg tablet 500 mg PO Q12H Qty: 22 RF: 0 Continued Entresto 97-103 mg tablet 1 tab PO BID 90 Days Qty: 180 RF: 1 imipramine HCl 10 mg tablet 10 mg PO BEDTIME Qty: 30 RF: 3 carvedilol 25 mg tablet 37.5 mg PO BID 90 Days Qty: 270 RF: 1 atorvastatin 40 mg Tablet 40 mg PO BEDTIME RF: 0 calcium carbonate-vitamin D3 [Calcium 600 + D(3)] 600 mg(1,500mg) -200 unit Tablet 1 tab PO BID RF: 0 dicyclomine 20 mg Tablet 20 mg PO QID RF: 0 ascorbic acid (vitamin C) 250 mg Tablet 250 mg PO BID RF: 0 mirtazapine 30 mg Tablet 30 mg PO BEDTIME RF: 0 gabapentin 300 mg Capsule 300 mg PO BID RF: 0 albuterol sulfate [ProAir HFA] 90 mcg/actuation Hfa Aerosol Inhaler 2 puff INHALATION Q4-6H PRN (Reason: Shortness Of Breath) RF: 0 fluoxetine 20 mg Capsule 20 mg PO DAILY RF: 0 ferrous gluconate 324 mg (37.5 mg iron) Tablet 324 mg PO BID RF: 0 omeprazole 20 mg capsule,delayed release(DR/EC) 20 mg PO BID@0630,1630 RF: 0 acetaminophen 500 mg Tablet 500 mg PO Q6H PRN (Reason: Pain (Scale Score 1-3)) RF: 0 fluticasone propionate 110 mcg/actuation Hfa Aerosol Inhaler 2 puff INHALATION BID RF: 0 Fiber Laxative (methylcellulo) 500 mg tablet 500 mg PO BID PRN (Reason: Constipation) RF: 0 Discontinued cephalexin 250 mg Capsule 250 mg PO Q8H RF: 0 Discharge Orders: Discharge Order (Routine); Ordered 05/14/20 Ordered By: Jesika Reyes Diet: advance to usual diet Activity on Discharge: As tolerated Visit Report Forms: Patient Portal Discharge page Care Plan Goals: Read below Health Concerns: Read below Plan of Treatment: You have presented to the hospital for low in the pain and fever. Found to have obstructing stone in your left ureter with kidney injury in urine infection. Your treated with IV antibiotics with good response and evaluated by urologist to removed the stone and place a stent. Your blood cultures were positive for bacteria called E coli which is sensitive to antibiotic. To continue 11 more days of Ceftin twice Daily To follow-up with Dr. Rose office in 2-3 weeks, please call to confirm appointment To use tamsulosin as prescribed To follow-up with PCP as scheduled
== END 2020-05-14 13:27 | disposition home or self-care (01) | DRG 854 ==
LOC: HO.ED 05-12 01:54 → HO.IMC 05-12 04:14
PROVIDERS: Emergency Medicine; Hospitalist; Urology; Admitting Provider Internal Medicine; Emergency Provider Internal Medicine; Visit Provider Student in an Organized Health Care Education/Training Program
PROC: 0TJB8ZZ Inspection of Bladder, Via Natural or Artificial Opening Endoscopic (ICD-10-PCS; CPT 52000; principal; 2020-05-12 14:30)
DX: A41.51 Sepsis due to Escherichia coli [E. coli] (principal); N20.1 Calculus of ureter; N10 Acute pyelonephritis; I42.9 Cardiomyopathy, unspecified; I50.32 Chronic diastolic (congestive) heart failure; I25.10 Atherosclerotic heart disease of native coronary artery without angina pectoris; Z95.810 Presence of automatic (implantable) cardiac defibrillator; I11.0 Hypertensive heart disease with heart failure; E78.5 Hyperlipidemia, unspecified; F17.210 Nicotine dependence, cigarettes, uncomplicated; Z71.6 Tobacco abuse counseling; Z20.828 Contact with and (suspected) exposure to other viral communicable diseases; Z87.440 Personal history of urinary (tract) infections; K21.9 Gastro-esophageal reflux disease without esophagitis; Z79.51 Long term (current) use of inhaled steroids; Z79.899 Other long term (current) drug therapy
CPT/HCPCS: 36415; 74176; 80048; 80053; 81001; 82365; 83605; 83690; 85025; 85027; 87040; 87077; 87086; 87088; 87186; 87635; 88300; 93005; 94640; 96361; 96365; 96375; 99285; J0330; J0696; J1170; J1650; J2250; J2270; J2405; J3010; Q9967

== ENCOUNTER 2020-05-19 13:46 | Outpatient (REF) | payer MEDICARE, SELFPAY ==
--- NOTE | 2020-05-19 13:55 | PFT_ITS ---
FLOWS: FEV1 67% of predicted at 1.54 L. FVC 68% of predicted at 2.01 L. FEV1 to FVC ratio of 0.77. No bronchodilator response. LUNG VOLUMES: Total lung capacity 90% of predicted at 4.41 L. Residual volume 110% of predicted at 2.27 L. Slow vital capacity 75% of predicted at 2.14 L. Expiratory reserve volume 37% of predicted at 0.27 L. Diffusion capacity is moderately decreased. IMPRESSION: No obstructive or restrictive ventilatory defect. No bronchodilator response. Decreased diffusion capacity suggests emphysema. Paul Andre MD AP/MODL / [id number]
== END 2020-05-19 13:47 | disposition home or self-care (01) ==
LOC: HO.RESP 13:46
PROVIDERS: Visit Provider Family Medicine
DX: J45.998 Other asthma (principal)
CPT/HCPCS: 94060; 94727; 94729

== ENCOUNTER → 2020-06-01 13:48 | Outpatient (BNVA) | payer MEDICARE, SELFPAY | PROVIDERS: Referring Provider Family Medicine; Visit Provider Internal Medicine Cardiovascular Disease | DX: Z45.02 Encounter for adjustment and management of automatic implantable cardiac defibrillator (principal); I25.10 Atherosclerotic heart disease of native coronary artery without angina pectoris; I42.9 Cardiomyopathy, unspecified | CPT/HCPCS: 93005; 99212 ==

== ENCOUNTER → 2020-06-02 14:03 | Outpatient (BNVA) | payer MEDICARE, SELFPAY | PROVIDERS: Visit Provider Urology | DX: N20.0 Calculus of kidney (principal); Z46.6 Encounter for fitting and adjustment of urinary device; F17.210 Nicotine dependence, cigarettes, uncomplicated | CPT/HCPCS: 52000; 52310; 99212 ==

== ENCOUNTER 2020-06-23 06:06 | Day surgery (SDC) | payer MEDICARE, SELFPAY ==
[2020-06-11 11:39] VITALS: BMI 19.8
--- NOTE | 2020-06-22 09:59 | P.CONAN_ITS ---
Documented by User: Farhana Luis 06/22/20 12:28 HPI - Anesthesia Eval Consult details Narrative: 65yo F for L ESWL 05/12/20 s/p emergent stent reposition with MAC PMFSH Past Medical History Medical History CAD (coronary artery disease) Cardiomyopathy Chronic heart failure with reduced ejection fraction and diastolic dysfunction GERD (gastroesophageal reflux disease) History of asthma HTN (hypertension) Hx of sepsis Hyperlipidemia ICD (implantable cardioverter-defibrillator) in place Family History Family History Father Diabetes HTN (hypertension) Mother Diabetes HTN (hypertension) Sister Throat cancer Surgical History Surgical History H/O hemorrhoidectomy Hx of colonoscopy Hx of cystoscopy Stented coronary artery Social History Social History Household Members: None Housing: Apartment Alcohol intake: current Alcohol intake frequency: holidays/special occasions only Alcohol type: beer Smoking Status: Current every day smoker Tobacco Type: Cigarette Cigarettes Per Day: 3 Years Smoked: 38 Use of substances other than those prescribed or required for medical reasons: Yes Substance Use Type: Marijuana Substance Use Frequency: Occasionally Advance Directives: No Advance Directives Information Provided: No Advance Directives on File: No service: No Current occupational status: unemployed Narrative Narrative: Cardiol office visit 06/01/20 - stable Meds Allergies Allergy/AdvReac Type Severity Reaction Status Date / Time Iodinated Contrast Media Allergy Severe ANGIOEDEMA Verified 06/11/20 11:33 [CONTRAST,IV] Home Medications Medication Instructions Recorded Confirmed Type methylcellulose (laxative) 500 mg 500 mg PO BID PRN 03/31/20 06/11/20 History tablet acetaminophen 500 mg PO Q6H PRN 05/13/20 06/11/20 History albuterol sulfate [ProAir HFA] 2 puff INHALATION Q4-6H PRN 05/13/20 06/11/20 History ascorbic acid (vitamin C) 250 mg PO BID 05/13/20 06/11/20 History atorvastatin 40 mg PO BEDTIME 05/13/20 06/11/20 History calcium carbonate-vitamin D3 1 tab PO BID 05/13/20 06/11/20 History [Calcium 600 + D(3)] dicyclomine 20 mg PO QID 05/13/20 06/11/20 History ferrous gluconate 324 mg PO BID 05/13/20 06/11/20 History fluoxetine 20 mg PO DAILY 05/13/20 06/11/20 History fluticasone propionate 2 puff INHALATION BID 05/13/20 06/11/20 History gabapentin 300 mg PO BID 05/13/20 06/11/20 History mirtazapine 30 mg PO BEDTIME 05/13/20 06/11/20 History omeprazole 20 mg PO BID@0630,1630 05/13/20 06/11/20 History Exam Exam Date and Time: June 22, 2020 0959 Height,Weight and Vital Signs: Height 5 ft 5 in Weight 53.977 kg Pertinent Lab Results Pertinent Lab Results: Laboratory Tests 05/14/20 05/14/20 05:26 05:26 WBC 8.8 Hgb 9.6 L Hct 28.3 L Plt Count 177 Sodium 140 Potassium 3.6 Chloride 107 Carbon Dioxide 22 BUN 10 Creatinine 1.02 Narrative Narrative: 06/01/20 Cardiac Device Check Details: Single-chamber ICD in place. Programmed in VVI at 40 beats per minute. One episode of nonsustained VT noted. Ventricular pacing thresholds adequate and reprogrammed to provide increased battery life. Battery life is excellent. Pacing and shock lead impedance is stable. Ventricular sensing is excellent. ECHO 04/2020 Conclusions: - The left ventricular systolic function is moderately decreased. The visually estimated ejection fraction is between 30-35%. - There is mild to moderate aortic valve regurgitation. - There is mild mitral valve regurgitation. EKG 06/01/20 NSR @ 100 Assessment and Plan Assessment Anesthesia Assessment: Chart Reviewed Documented by User: Gage Gonzales 06/23/20 07:37 [facility] Past Medical History Medical History CAD (coronary artery disease) Cardiomyopathy Chronic heart failure with reduced ejection fraction and diastolic dysfunction GERD (gastroesophageal reflux disease) History of asthma HTN (hypertension) Hx of sepsis Hyperlipidemia ICD (implantable cardioverter-defibrillator) in place Family History Family History Father Diabetes HTN (hypertension) Mother Diabetes HTN (hypertension) Sister Throat cancer Surgical History Surgical History H/O hemorrhoidectomy Hx of colonoscopy Hx of cystoscopy Stented coronary artery Social History Social History Household Members: None Housing: Apartment Alcohol intake: current Alcohol intake frequency: holidays/special occasions only Alcohol type: beer Smoking Status: Current every day smoker Tobacco Type: Cigarette Cigarettes Per Day: 3 Years Smoked: 38 Use of substances other than those prescribed or required for medical reasons: Yes Substance Use Type: Marijuana Substance Use Frequency: Occasionally Advance Directives: No Advance Directives Information Provided: No Advance Directives on File: No service: No Current occupational status: unemployed Meds Allergies Allergy/AdvReac Type Severity Reaction Status Date / Time Iodinated Contrast Media Allergy Severe ANGIOEDEMA Verified 06/11/20 11:33 [CONTRAST,IV] Home Medications Medication Instructions Recorded Confirmed Type methylcellulose (laxative) 500 mg 500 mg PO BID PRN 03/31/20 06/11/20 History tablet acetaminophen 500 mg PO Q6H PRN 05/13/20 06/11/20 History albuterol sulfate [ProAir HFA] 2 puff INHALATION Q4-6H PRN 05/13/20 06/11/20 History ascorbic acid (vitamin C) 250 mg PO BID 05/13/20 06/11/20 History atorvastatin 40 mg PO BEDTIME 05/13/20 06/11/20 History calcium carbonate-vitamin D3 1 tab PO BID 05/13/20 06/11/20 History [Calcium 600 + D(3)] dicyclomine 20 mg PO QID 05/13/20 06/11/20 History ferrous gluconate 324 mg PO BID 05/13/20 06/11/20 History fluoxetine 20 mg PO DAILY 05/13/20 06/11/20 History fluticasone propionate 2 puff INHALATION BID 05/13/20 06/11/20 History gabapentin 300 mg PO BID 05/13/20 06/11/20 History mirtazapine 30 mg PO BEDTIME 05/13/20 06/11/20 History omeprazole 20 mg PO BID@0630,1630 05/13/20 06/11/20 History Exam Airway Mallampati Class: II TM Dist: >3cm Neck ROM: Full Loose/Missing/Broken Teeth: No Heart: rrr+[id number] Lungs: cta b/l Assessment and Plan Assessment Anesthesia Assessment: Anesthesia Plan Discussed and Chart Reviewed Final Anesthetic Review NPO: Yes ASA Class: III Final Preanesthetic Review: No Changes in Pt Med Stat, Meds/Allgs Chart Reviewed and Anes Risks/Benef Reviewed Patient Risk: Low Procedure Risk: Low (S) Assessment/Block/Sedation in SS: Assess/Block/Sedation-SS Anesthetic Plan Anesthetic Plan: MAC: and Agree w/ Assess. and Plan Disposition: Standard PACU
--- NOTE | 2020-06-23 05:34 | XR_ITS ---
EXAMINATION: XR ABDOMEN KUB CLINICAL INDICATION: Left renal stone. COMPARISON: CT abdomen and pelvis 05/12/2020 TECHNIQUE: AP view of the abdomen. FINDINGS: There is scattered stool and gas seen in the colon. No organomegaly. No radiopaque renal calculi seen. There are scattered calcifications in the L1-L2 disc level likely vascular calcifications. No gross bony abnormality. No ureteral stone seen in the left side XR/XR KUB IMPRESSION: No renal or ureteral stone seen at this time. There are vessel calcifications visualized.
[2020-06-23 07:09] VITALS: BP 156/102; PULSE 89; RESP 89; TEMP 36.1; O2SAT 99
[2020-06-23] MEDS: Lactated Ringers 1,000 ML 20 ML IVCONT (07:21)
--- NOTE | 2020-06-23 07:22 | MHC.SHP ---
Pre-Procedural Eval Section A The patient is an INPATIENT: No Changes since office visit: No Cold of Flu in the past 2 weeks, No New Medical Problems, No Changes in Medication and No Patient answered all questions The History & Physical has been completed within 30 days and I have reviewed it.: Yes Section B Chief Complaint: calculus of kidney Allergies: Allergies Allergy/AdvReac Type Severity Reaction Status Date / Time Iodinated Contrast Media Allergy Severe ANGIOEDEMA Verified 06/11/20 11:33 [CONTRAST,IV] Plan I have reviewed the history and physical and performed a pertinent physical examination on my patient. No changes have occurred unless specified. - left ESWL
--- NOTE | 2020-06-23 08:01 | PM.OP ---
Brief Operative Note Date of Service: 06/23/20 Pre-op diagnosis: left renal stones Post-op diagnosis: same Procedure: ESWL Surgeon: Paul Rose MD Anesthesia: MAC Estimated blood loss (mL): 0 Pathology: none sent Condition: stable Disposition: same day
--- NOTE | 2020-06-23 08:03 | W.PM.OPN ---
Operative Note Operative Note Date of Service: 06/23/20 Narrative: PreOperative Diagnosis: left Renal stones Post Operative Diagnosis: left Renal stones Procedure: left ESWL Surgeon: Dr Paul Rose Anesthesia: mac/sedation Indications for procedure: They understand ESWL may be a staged procedure and subsequent intervention may be required based on imaging after ESWL. They also understand there is a risk of bleeding, infection, damage to adjacent organs. Procedure: After informed consent was verified the patient was brought to the operating room and placed in a supine position. Anesthesia was performed per protocol. Safety pause time-out was performed. Imaging was in the room and laterality confirmed. ESWL was performed. The 1st 500 shocks were performed at 60 hertz. These were performed with increasing power. Once maximum power was reached the rate was increased to 180 hertz. A total of 2500 shocks were given. Fluoroscopy showed stone disintegration. They tolerated procedure well and was transferred to the recovery area upon completion. Hard stone with fracturing
[2020-06-23 08:15] VITALS: BP 165/110; PULSE 82; RESP 12; TEMP 36.6; O2SAT 95
[2020-06-23 08:30] VITALS: BP 153/104; PULSE 79; RESP 20; TEMP 36.6; O2SAT 97
--- NOTE | 2020-06-23 08:55 | HO.POSTANES ---
Post Anesthesia Evaluation Post Anesthesia Evaluation Vital Signs: Vital Signs Temp Pulse Resp BP Pulse Ox 06/23/20 08:30 97.8 F 79 20 153/104 H 97 06/23/20 08:15 97.8 F 82 12 165/110 H 95 06/23/20 07:09 97 F 89 89 H 156/102 H 99 Anesthesia: General (tiva) Mental Status: Awake Pain Control: Satisfactory Nausea/Vomiting: None Hydration: Adequate Anesthesia-Related Issues: No Anes. Related Issues
== END 2020-06-23 09:05 | disposition home or self-care (01) ==
PROVIDERS: Visit Provider Urology
PROC: (CPT 50590; principal; 2020-06-23 07:30)
DX: N20.0 Calculus of kidney (principal); I11.0 Hypertensive heart disease with heart failure; I50.32 Chronic diastolic (congestive) heart failure; Z95.810 Presence of automatic (implantable) cardiac defibrillator; I25.10 Atherosclerotic heart disease of native coronary artery without angina pectoris; Z98.61 Coronary angioplasty status; J45.909 Unspecified asthma, uncomplicated; Z79.51 Long term (current) use of inhaled steroids; Z79.899 Other long term (current) drug therapy; F17.210 Nicotine dependence, cigarettes, uncomplicated
CPT/HCPCS: 50590; 74018; J1885; J2250; J2405; J3010

== ENCOUNTER → 2020-07-13 08:45 | Outpatient (BNVA) | payer MEDICARE, SELFPAY | PROVIDERS: PCP Nurse Practitioner Family; Visit Provider Nurse Practitioner | DX: Z76.89 Persons encountering health services in other specified circumstances (principal) | CPT/HCPCS: Q3014 ==

== ENCOUNTER → 2020-08-04 10:59 | Outpatient (BNVA) | payer OTHER, SELFPAY | PROVIDERS: PCP Nurse Practitioner Family; Visit Provider Nurse Practitioner | DX: K58.2 Mixed irritable bowel syndrome (principal); K59.4 Anal spasm; B37.89 Other sites of candidiasis | CPT/HCPCS: Q3014 ==

== ENCOUNTER 2020-11-14 16:06 | Emergency (ER) | payer OTHER, SELFPAY ==
--- NOTE | ~2020-11-14 | XR_ITS ---
EXAMINATION: XR CHEST CLINICAL INFORMATION: Chest pain COMPARISON: 03/05/2017 TECHNIQUE: 2 views of the chest were obtained. FINDINGS: Left-sided pacemaker device is unchanged in position. Normal cardiomediastinal silhouette. Adequate expansion of lungs. No focal consolidation. No pleural effusion or pneumothorax. No acute osseous abnormality. XR/XR chest 2V IMPRESSION: No acute disease within the chest.
--- NOTE | 2020-11-14 16:18 | ECG_ITS ---
Test Reason : CHEST PAIN Blood Pressure : / mmHG Vent. Rate : 065 BPM Atrial Rate : 065 BPM P-R Int : 130 ms QRS Dur : 094 ms QT Int : 466 ms P-R-T Axes : 065 059 074 degrees QTc Int : 484 ms Normal sinus rhythm Moderate voltage criteria for LVH, may be normal variant Borderline ECG When compared with ECG of 12-MAY-2020 00:01, due to artifact in prior EKG, cannot compare. Referred By: Dominique Farah Electronically Signed By:SANIYA TYSON
[2020-11-14 16:24] VITALS: BP 170/89; PULSE 84; RESP 18; O2SAT 99; BMI 25.8
--- NOTE | 2020-11-14 16:28 | ED.CHESTPAIN ---
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 Patient thought it was related to her high blood pressure so she took her morning medications but continues to have some chest pressure. She tells me it is constant. This no radiation. She has some mild associated shortness of breath. No dizziness, vomiting, diaphoresis. She did have 1 episode of diarrhea this morning with some mild nausea. No abdominal pain. No leg swelling or pain MD complaint: chest heaviness Related Data Home Medications Medication Instructions Recorded Confirmed methylcellulose (laxative) 500 mg 500 mg PO BID PRN 03/31/20 06/11/20 tablet acetaminophen 500 mg PO Q6H PRN 05/13/20 06/11/20 albuterol sulfate [ProAir HFA] 2 puff INHALATION Q4-6H PRN 05/13/20 06/11/20 ascorbic acid (vitamin C) 250 mg PO BID 05/13/20 06/11/20 atorvastatin 40 mg PO BEDTIME 05/13/20 06/11/20 calcium carbonate-vitamin D3 1 tab PO BID 05/13/20 06/11/20 [Calcium 600 + D(3)] ferrous gluconate 324 mg PO BID 05/13/20 06/11/20 fluoxetine 20 mg PO DAILY 05/13/20 06/11/20 fluticasone propionate 2 puff INHALATION BID 05/13/20 06/11/20 gabapentin 300 mg PO BID 05/13/20 06/11/20 mirtazapine 30 mg PO BEDTIME 05/13/20 06/11/20 amlodipine 5 mg tablet 5 mg PO BEDTIME 08/04/20 ferrous gluconate 324 mg (38 mg 324 mg PO BID 08/04/20 iron) tablet Previous Rx's Medication Instructions Recorded pyridoxine (vitamin B6) 100 mg 100 mg PO DAILY 90 Days #90 tab 06/02/20 tablet tamsulosin 0.4 mg PO BEDTIME #14 cap 06/23/20 tramadol 50 mg PO Q6H PRN #14 tab 06/23/20 docusate sodium 100 mg capsule 100 mg PO BID 30 Days #60 cap 07/13/20 imipramine HCl 25 mg tablet 25 mg PO BEDTIME 30 Days #30 tab 07/13/20 nystatin 100,000 unit/gram topical 1 appl TOPICAL TID 30 Days #30 g 07/13/20 ointment omeprazole 20 mg capsule,delayed 20 mg PO BID #60 cap 08/23/20 release dicyclomine 20 mg tablet 20 mg PO QID #120 tab 09/21/20 carvedilol 25 mg tablet 37.5 mg PO BID 90 Days #270 tab 10/22/20 sacubitril 97 mg-valsartan 103 mg 1 tab PO BID 90 Days #180 tab 10/22/20 tablet Allergies Allergy/AdvReac Type Severity Reaction Status Date / Time Iodinated Contrast Media Allergy Severe ANGIOEDEMA Verified 08/04/20 11:00 [CONTRAST,IV] Review of Systems Review of Systems: Yes all other systems are reviewed and are negative Constitutional: Constitutional: Reports no additional constitutional complaints, Denies body ache(s), Denies chills, Denies fever(s), Denies headache(s) and Denies weakness Eyes: Eyes: Reports no additional eye complaints and Denies change in vision ENT: Reports system reviewed and no additional complaints, except as documented, Denies dizziness, Denies headache(s), Denies nasal congestion, Denies nasal discharge and Denies neck pain Cardiovascular: Cardiovascular: Reports no additional cardiovascular complaints, Reports chest pain, Denies leg edema and Denies dyspnea Respiratory: Respiratory: Reports no additional respiratory complaints, Denies cough and Denies dyspnea Gastrointestinal: Gastrointestinal: Reports no additional gastrointestinal complaints, Denies abdominal pain, Reports diarrhea (One episode), Reports nausea and Denies vomiting Genitourinary: Genitourinary: Reports no additional female genitourinary complaints and Denies urinary incontinence Musculoskeletal: Musculoskeletal: Reports no additional musculoskeletal complaints, Denies back pain, Denies arthralgias, Denies joint swelling, Denies neck pain, Denies numbness and Denies tingling Integumentary/Breasts: Skin/Breast: Reports system reviewed and no additional complaints, except as docu and Denies rash Neurologic: Reports system reviewed and no additional complaints, except as documented, Denies Abnormal speech present, Denies dizziness, Denies headache(s), Denies numbness, Denies tingling and Denies weakness PMFSH Past Medical History Attestation statement: The following information was validated with the patient. Source: old records reviewed and nursing notes reviewed Medical History CAD (coronary artery disease) Cardiomyopathy Chronic heart failure with reduced ejection fraction and diastolic dysfunction GERD (gastroesophageal reflux disease) History of asthma HTN (hypertension) Hx of sepsis Hyperlipidemia ICD (implantable cardioverter-defibrillator) in place Surgical History H/O hemorrhoidectomy Hx of colonoscopy Hx of cystoscopy Stented coronary artery Family History Family History Father Diabetes HTN (hypertension) Mother Diabetes HTN (hypertension) Sister Throat cancer Social History Social History Household Members: None Housing: Apartment Do you presently have visiting nurse or other home services: No Alcohol intake: current Alcohol intake frequency: does not drink Cigarettes Per Day: 1 Years Smoked: 38 Substance Use Type: Marijuana Advance Directives: No Advance Directives Information Provided: Yes service: No Current occupational status: unemployed and disabled Physical Exam Vital Signs: Vital Signs: Last Vital Signs Temp 98.6 F 11/14/20 19:28 Pulse 78 11/14/20 19:28 Resp 16 11/14/20 19:28 BP 165/91 H 11/14/20 19:28 Pulse Ox 98 11/14/20 19:28 Body Mass Index 25.8 Const: General: cooperative, healthy appearing, comfortable and no acute distress Orientation/consciousness: patient oriented x3 Limitations: no limitations HENMT: Head: Yes normal to inspection Ears: hearing grossly normal bilaterally General nose exam: Normal external nose present Face and sinus: Yes normal facial exam Mouth: Normal oral and palatal mucosa present Throat: Yes posterior oropharynx normal Eyes: General: appearance normal, both eyes and all related structures Pupils: Equal, round and reactive pupils present Neck: Neck: Yes normal visual inspection Chest: Chest palpation & inspection: normal inspection of the chest Resp: Effort & Inspection: normal respiratory effort Auscultation: clear to auscultation bilaterally Cardio: Rate: regular rate Rhythm: regular rhythm Peripheral pulses: Peripheral pulses 2+ throughout GI: Inspection: Yes normal to inspection Palpation (GI): Soft to palpation and nontender Auscultation: normal bowel sounds Back/Spine/Pelvis: Thoracic/Lumbar Spine: thoracic and lumbar spine normal to inspection Skin: General skin exam: no rashes or lesions noted Neuro: General: patient oriented x3, no focal motor deficits and normal sensation to monofilament Cranial nerves: Yes Equal, round and reactive pupils present Cognition (Neuro): normal cognition Speech: No Abnormal speech present Gait exam (Neuro): Normal gait present Motor exam (neuro): 5/5 motor strength present throughout Extrem: General: Yes normal to inspection, Yes no pedal edema and Yes no calf tenderness Course Course Course Narrative: 65-year-old female here with complaints of waking with chest pressure with some nausea, mild shortness of breath and 1 episode of diarrhea. Flutter was related to her blood pressure so took all of her morning medications. She does tell me that her blood pressures been running high and so her primary care doctor increased 1 of her blood pressure medications this past week but she does not remember the name of it. On exam the patient has some chest discomfort. Her exam otherwise is benign. Hemodynamically stable with the exception of some mild hypertension. Will check labs, EKG, chest x-ray. 1800-lab show acute kidney injury. Gentle hydration started due to baseline cardiomyopathy with EF of 30%. UA is consistent with a UTI. At this time infection is suspected. Blood cultures and lactic acid ordered. Antibiotics ordered. Initial troponin mildly elevated. Plan for repeat 3 hour troponin. 2100-Sign out to Archana STOCK HANDLER FLOORPERSON pending above. MDM - Chest Pain MDM Narrative Medical decision making narrative: Atypical chest pain, ACS, PE, pneumonia Medical Records Data Attestation: I reviewed the patient's medical records. Lab Data Attestation: I reviewed the patient's lab results. Result diagrams: 11/14/20 16:48 11/14/20 16:48 Labs: Lab Results 11/14/20 11/14/20 11/14/20 Range/Units 16:48 16:48 16:48 WBC 6.7 (4.8-10.8) X10*3/uL RBC 3.83 L D (4.20-5.50) X10*6/uL Hgb 11.7 L D (12.0-16.0) g/dl Hct 34.9 L D (37-47) % MCV 91.1 (80-98) fL MCH 30.5 (27.0-33.0) pg MCHC 33.5 (31.0-35.0) g/dl RDW 16.5 H (11.0-16.0) % Plt Count 277 D (160-400) X10*3/uL MPV 8.7 L (9.4-12.3) fL Immature Gran % (Auto) 0.4 (0.0-0.4) % Neut % (Auto) 59.9 (45-73) % Lymph % (Auto) 25.7 (20-40) % [place] % (Auto) 11.1 H (2-11) % Eos % (Auto) 1.9 (0-4) % Baso % (Auto) 1.0 (0-2) % Lymph # (Auto) 1.7 (1.2-4.9) X10*3/uL [place] # (Auto) 0.7 (0.1-1.2) X10*3/uL Eos # (Auto) 0.1 (0.0-0.4) X10*3/uL Baso # (Auto) 0.1 (0.0-0.2) X10*3/uL Abs Immat Gran (auto) 0.03 (0.00-0.03) X10*3/uL Absolute Neuts (auto) 4.0 (2.0-8.3) X10*3/uL Absolute Nucleated RBC 0.000 (0.0-0.012) X10*3/uL Nucleated RBC % (auto) 0.0 (0.0-0.2) /100WBC Sodium 144 (135-145) mmol/L Potassium 4.2 (3.3-5.1) mmol/L Chloride 113 H (96-108) mmol/L Carbon Dioxide 21 L (22-29) mmol/L Anion Gap 14 (12-20) BUN 17 H D (9-16) mg/dL Creatinine 1.80 H (0.5-1.4) mg/dL Estim Creat Clear Calc 25.9 Estimated GFR 28 Random Glucose 108 D (60-115) mg/dL Lactic Acid (0.5-2.0) mmol/L Calcium 9.3 D (8.4-10.2) mg/dL Magnesium 2.4 (1.6-2.6) mg/dL Total Bilirubin 0.6 (0.0-1.0) mg/dL Direct Bilirubin 0.2 (0.0-0.5) mg/dL AST 20 (5-31) U/L ALT 9 (0-31) U/L Alkaline Phosphatase 77 (39-117) U/L Troponin I High Sens 7.2 (<3.5-17.0) ng/L B-Natriuretic Peptide (<100) pg/mL Total Protein 7.4 (6.5-8.0) g/dL Albumin 4.3 (3.5-5.0) g/dL Urine Color Urine Appearance Urine pH (5.0-8.0) Ur Specific [place] (1.005-1.025) Urine Protein (NEG-TRACE) MG/DL Urine Glucose (UA) (NEG) MG/DL Urine Ketones (NEG) MG/DL Urine Blood (NEG) Urine Nitrite (NEG) Ur Leukocyte Esterase (NEG) Urine RBC (0) /HPF Urine WBC (0-4) /HPF Ur Squamous Epith Cells /LPF Urine Bacteria /LPF 11/14/20 11/14/20 11/14/20 Range/Units 16:48 17:41 18:45 WBC (4.8-10.8) X10*3/uL RBC (4.20-5.50) X10*6/uL Hgb (12.0-16.0) g/dl Hct (37-47) % MCV (80-98) fL MCH (27.0-33.0) pg MCHC (31.0-35.0) g/dl RDW (11.0-16.0) % Plt Count (160-400) X10*3/uL MPV (9.4-12.3) fL Immature Gran % (Auto) (0.0-0.4) % Neut % (Auto) (45-73) % Lymph % (Auto) (20-40) % [place] % (Auto) (2-11) % Eos % (Auto) (0-4) % Baso % (Auto) (0-2) % Lymph # (Auto) (1.2-4.9) X10*3/uL [place] # (Auto) (0.1-1.2) X10*3/uL Eos # (Auto) (0.0-0.4) X10*3/uL Baso # (Auto) (0.0-0.2) X10*3/uL Abs Immat Gran (auto) (0.00-0.03) X10*3/uL Absolute Neuts (auto) (2.0-8.3) X10*3/uL Absolute Nucleated RBC (0.0-0.012) X10*3/uL Nucleated RBC % (auto) (0.0-0.2) /100WBC Sodium (135-145) mmol/L Potassium (3.3-5.1) mmol/L Chloride (96-108) mmol/L Carbon Dioxide (22-29) mmol/L Anion Gap (12-20) BUN (9-16) mg/dL Creatinine (0.5-1.4) mg/dL Estim Creat Clear Calc Estimated GFR Random Glucose (60-115) mg/dL Lactic Acid 0.7 (0.5-2.0) mmol/L Calcium (8.4-10.2) mg/dL Magnesium (1.6-2.6) mg/dL Total Bilirubin (0.0-1.0) mg/dL Direct Bilirubin (0.0-0.5) mg/dL AST (5-31) U/L ALT (0-31) U/L Alkaline Phosphatase (39-117) U/L Troponin I High Sens (<3.5-17.0) ng/L B-Natriuretic Peptide 33 (<100) pg/mL Total Protein (6.5-8.0) g/dL Albumin (3.5-5.0) g/dL Urine Color YELLOW Urine Appearance HAZY Urine pH 6.5 (5.0-8.0) Ur Specific [place] 1.015 (1.005-1.025) Urine Protein 2+ H (NEG-TRACE) MG/DL Urine Glucose (UA) NEG (NEG) MG/DL Urine Ketones 5 (NEG) MG/DL Urine Blood 1+ H (NEG) Urine Nitrite POS H (NEG) Ur Leukocyte Esterase TRACE H (NEG) Urine RBC 5-9 H (0) /HPF Urine WBC 30-49 H (0-4) /HPF Ur Squamous Epith Cells 2+ /LPF Urine Bacteria 4+ /LPF Imaging Data Chest x-ray: Attestation: I personally reviewed and interpreted this imaging study as follows: Radiologist's impression: EXAMINATION: XR CHEST CLINICAL INFORMATION: Chest pain COMPARISON: 03/05/2017 TECHNIQUE: 2 views of the chest were obtained. FINDINGS: Left-sided pacemaker device is unchanged in position. Normal cardiomediastinal silhouette. Adequate expansion of lungs. No focal consolidation. No pleural effusion or pneumothorax. No acute osseous abnormality. XR/XR chest 2V IMPRESSION: No acute disease within the chest. ECG Data ECG #1: Attestation: I personally reviewed and interpreted this ECG as follows: ECG interpretation date: 11/14/20 ECG interpretation time: 16:41 Interpretation: NSR with rate 65, normal pr, normal qrs, normal qtc Discharge Plan Discharge Clinical Impression: Acute UTI, ADY (acute kidney injury), Atypical chest pain Instructions: Chest Pain (ED), Urinary Tract Infection in Older Adults (ED) Prescriptions: No Action omeprazole 20 mg capsule,delayed release(DR/EC) 20 mg PO BID Qty: 60 RF: 3 dicyclomine 20 mg tablet 20 mg PO QID Qty: 120 RF: 2 carvedilol 25 mg tablet 37.5 mg PO BID 90 Days Qty: 270 RF: 3 Entresto 97-103 mg tablet 1 tab PO BID 90 Days Qty: 180 RF: 3 atorvastatin 40 mg Tablet 40 mg PO BEDTIME RF: 0 calcium carbonate-vitamin D3 [Calcium 600 + D(3)] 600 mg(1,500mg) -200 unit Tablet 1 tab PO BID RF: 0 ascorbic acid (vitamin C) 250 mg Tablet 250 mg PO BID RF: 0 mirtazapine 30 mg Tablet 30 mg PO BEDTIME RF: 0 gabapentin 300 mg Capsule 300 mg PO BID RF: 0 albuterol sulfate [ProAir HFA] 90 mcg/actuation Hfa Aerosol Inhaler 2 puff INHALATION Q4-6H PRN (Reason: Shortness Of Breath) RF: 0 fluoxetine 20 mg Capsule 20 mg PO DAILY RF: 0 ferrous gluconate 324 mg (37.5 mg iron) Tablet 324 mg PO BID RF: 0 acetaminophen 500 mg Tablet 500 mg PO Q6H PRN (Reason: Pain (Scale Score 1-3)) RF: 0 fluticasone propionate 110 mcg/actuation Hfa Aerosol Inhaler 2 puff INHALATION BID RF: 0 tramadol 50 mg tablet 50 mg PO Q6H PRN (Reason: pain) Qty: 14 RF: 0 tamsulosin 0.4 mg capsule 0.4 mg PO BEDTIME Qty: 14 RF: 0 Fiber Laxative (methylcellulo) 500 mg tablet 500 mg PO BID PRN (Reason: Constipation) RF: 0 imipramine HCl 25 mg tablet 25 mg PO BEDTIME 30 Days Qty: 30 RF: 3 nystatin 100,000 unit/gram ointment 1 appl topical TID 30 Days Qty: 30 RF: 3 docusate sodium [Colace] 100 mg capsule 100 mg PO BID 30 Days Qty: 60 RF: 1 pyridoxine (vitamin B6) 100 mg tablet 100 mg PO DAILY 90 Days Qty: 90 RF: 1
[2020-11-14 16:52] LABS: MANUAL DIFF FLAG NO
[2020-11-14 16:53] LABS: Basophils Absolute Auto 0.1 X10*3/uL (0.0-0.2); Eosinophils Absolute Auto 0.1 X10*3/uL (0.0-0.4); Eosinophils Percent Auto 1.9 % (0-4); Hematocrit 34.9 % (37-47); Hemoglobin 11.7 g/dl (12.0-16.0); Imm Gran Abs Auto 0.03 X10*3/uL (0.00-0.03); Imm Gran Pct Auto 0.4 % (0.0-0.4); Lymphocytes Absolute Auto 1.7 X10*3/uL (1.2-4.9); Lymphocytes Percent Auto 25.7 % (20-40); Mean Corpuscular HGB Conc 33.5 g/dl (31.0-35.0); Mean Corpuscular Hemoglobin 30.5 pg (27.0-33.0); Mean Corpuscular Volume 91.1 fL (80-98); Mean Platelet Volume 8.7 fL (9.4-12.3); Monocytes Absolute Auto 0.7 X10*3/uL (0.1-1.2); Monocytes Percent Auto 11.1 % (2-11); Neutrophils Percent Auto 59.9 % (45-73); Platelet Count 277 X10*3/uL (160-400); Red Blood Count 3.83 X10*6/uL (4.20-5.50); Red Cell Distribution Width 16.5 % (11.0-16.0); White Blood Count 6.7 X10*3/uL (4.8-10.8)
[2020-11-14 17:19] VITALS: BP 172/76; PULSE 88; RESP 18; O2SAT 99
[2020-11-14 17:28] LABS: Alanine Aminotransferase 9 U/L (0-31); Albumin Level 4.3 g/dL (3.5-5.0); Alkaline Phosphatase 77 U/L (39-117); Anion Gap 14 (12-20); Aspartate Amino Transferase 20 U/L (5-31); Bilirubin Direct 0.2 mg/dL (0.0-0.5); Bilirubin Total 0.6 mg/dL (0.0-1.0); Blood Urea Nitrogen 17 mg/dL (9-16); Calcium 9.3 mg/dL (8.4-10.2); Carbon Dioxide 21 mmol/L (22-29); Chloride 113 mmol/L (96-108); Creatinine Clr Calc Pharmacy 25.9; Estimated Glomerular Filt Rate 28; Glucose Random 108 mg/dL (60-115); Magnesium 2.4 mg/dL (1.6-2.6); Potassium 4.2 mmol/L (3.3-5.1); Sodium 144 mmol/L (135-145); Total Protein 7.4 g/dL (6.5-8.0)
[2020-11-14 17:29] LABS: B Type Natriuretic Peptide 33 pg/mL (<100)
[2020-11-14 17:35] LABS: Troponin-I High Sensitivity 7.2 ng/L (<3.5-17.0)
[2020-11-14] MEDS: 0.9 % Sodium Chloride 500 ML 999 ML IV (17:40)
[2020-11-14 17:50] LABS: Glucose Urine UA NEG (NEG); Leukocyte Esterase Urine TRACE (NEG); Nitrite Urine POS (NEG); PH 6.5 (5.0-8.0); Specific Gravity - Urine 1.015 (1.005-1.025); UACC Culture Trigger YES; Urine Blood 1+ (NEG); Urine Ketones 5 MG/DL (NEG); Urine Protein 2+ MG/DL (NEG-TRACE)
[2020-11-14 17:52] LABS: Appearance Urine HAZY; Color Urine YELLOW
[2020-11-14 18:05] LABS: Bacteria Urine 4+ /LPF; Squamous Epithelial Cell Urine 2+ /LPF; WBC Urine 30-49 /HPF (0-4)
[2020-11-14 19:20] LABS: Lactic Acid 0.7 mmol/L (0.5-2.0)
[2020-11-14 19:28] VITALS: BP 165/91; PULSE 78; RESP 16; TEMP 37; O2SAT 98
[2020-11-14] MEDS: cefTRIAXone sodium 1 GM in 0.9 % Sodium Chloride 50 ML IV (19:41)
[2020-11-14 21:10] LABS: Anion Gap 14 (12-20); Blood Urea Nitrogen 15 mg/dL (9-16); Calcium 8.8 mg/dL (8.4-10.2); Carbon Dioxide 18 mmol/L (22-29); Chloride 116 mmol/L (96-108); Creatinine Clr Calc Pharmacy 29.9; Estimated Glomerular Filt Rate 33; Glucose Random 89 mg/dL (60-115); Potassium 3.6 mmol/L (3.3-5.1); Sodium 144 mmol/L (135-145)
[2020-11-14 21:14] LABS: Troponin-I High Sensitivity 8.1 ng/L (<3.5-17.0)
[2020-11-14 21:25] VITALS: BP 165/141; PULSE 82; RESP 20; TEMP 36.7; O2SAT 99
[2020-11-14 22:00] VITALS: BP 139/96; PULSE 85; RESP 18; O2SAT 99
== END 2020-11-14 22:58 | disposition home or self-care (01) ==
PROVIDERS: Nurse Practitioner Family; Emergency Provider Internal Medicine
DX: R07.89 Other chest pain (principal); N39.0 Urinary tract infection, site not specified; N17.9 Acute kidney failure, unspecified; I11.0 Hypertensive heart disease with heart failure; I50.22 Chronic systolic (congestive) heart failure; I42.9 Cardiomyopathy, unspecified; I25.10 Atherosclerotic heart disease of native coronary artery without angina pectoris; Z79.82 Long term (current) use of aspirin; Z95.810 Presence of automatic (implantable) cardiac defibrillator; Z95.5 Presence of coronary angioplasty implant and graft; Z79.899 Other long term (current) drug therapy
CPT/HCPCS: 36415; 71046; 80048; 80076; 81001; 81003; 83605; 83735; 83880; 84484; 85025; 87040; 87086; 87088; 87186; 93005; 96361; 96365; 99284; 99285; J0696

== ENCOUNTER → 2020-11-30 13:16 | Outpatient (BNVA) | payer OTHER, SELFPAY | PROVIDERS: PCP Family Medicine; Referring Provider Family Medicine; Visit Provider Internal Medicine Cardiovascular Disease | DX: Z45.02 Encounter for adjustment and management of automatic implantable cardiac defibrillator (principal); I42.9 Cardiomyopathy, unspecified; I25.10 Atherosclerotic heart disease of native coronary artery without angina pectoris | CPT/HCPCS: 93005; 99212 ==

== ENCOUNTER → 2021-02-14 07:56 | Outpatient (REF) | payer OTHER, SELFPAY ==
--- NOTE | 2021-02-14 08:03 | ECG_ITS ---
Test Reason : diziness and giddiness Blood Pressure : / mmHG Vent. Rate : 082 BPM Atrial Rate : 082 BPM P-R Int : 136 ms QRS Dur : 092 ms QT Int : 424 ms P-R-T Axes : 054 021 052 degrees QTc Int : 495 ms Normal sinus rhythm Prolonged QT Abnormal ECG When compared with ECG of 14-NOV-2020 16:41, No significant change was found Referred By: Kianna Nunez Electronically Signed By:SOLITARIO CUEVAS
== END ==
LOC: HO.CARD 07:56
PROVIDERS: PCP Family Medicine; Visit Provider Family Medicine
DX: R42 Dizziness and giddiness (principal)
CPT/HCPCS: 93005

== ENCOUNTER 2021-04-25 22:32 | Observation (INO) | payer OTHER, SELFPAY ==
--- NOTE | ~2021-04-25 | XR_ITS ---
EXAMINATION: XR CHEST CLINICAL INFORMATION: Chest pain COMPARISON: 11/14/2020 TECHNIQUE: Frontal view of the chest was obtained. FINDINGS: Again seen is a unipolar left chest wall pacer/defibrillator. Linear atelectasis/scarring present at the right lung base. No significant abnormality is noted involving the heart, lungs, mediastinum, bony thorax or soft tissues. XR/XR chest 1V IMPRESSION: No acute intrathoracic disease.
[2021-04-25 22:46] VITALS: BP 122/89; PULSE 103; RESP 22; TEMP 36.6; O2SAT 98; BMI 20.3
--- NOTE | 2021-04-25 22:56 | ECG_ITS ---
Test Reason : CHEST PAIN Blood Pressure : / mmHG Vent. Rate : 097 BPM Atrial Rate : 097 BPM P-R Int : 136 ms QRS Dur : 088 ms QT Int : 418 ms P-R-T Axes : 077 063 069 degrees QTc Int : 530 ms Normal sinus rhythm Prolonged QT Intra-ventricular conduction delay Abnormal ECG When compared with ECG of 14-FEB-2021 08:14, No significant change was found Referred By: Zaire Willingham Electronically Signed By:LIZBETH WHITMAN MD
[2021-04-25 22:59] VITALS: BP 122/89; RESP 12; O2SAT 98
[2021-04-25 23:39] VITALS: BP 168/85; PULSE 86; RESP 16; TEMP 36.8; O2SAT 98
[2021-04-25 23:56] LABS: MANUAL DIFF FLAG NO
--- NOTE | 2021-04-25 23:56 | PC.NURSE ---
provider in to see pt. labs drawn and pt medicated per mar.
[2021-04-25 23:57] LABS: Basophils Absolute Auto 0.1 X10*3/uL (0.0-0.2); Basophils Percent Auto 0.5 % (0-2); Eosinophils Absolute Auto 0.1 X10*3/uL (0.0-0.4); Eosinophils Percent Auto 1.3 % (0-4); Hematocrit 30.4 % (37.0-47.0); Hemoglobin 10.4 g/dl (12.0-16.0); Imm Gran Abs Auto 0.03 X10*3/uL (0.00-0.03); Imm Gran Pct Auto 0.3 % (0.0-0.4); Lymphocytes Absolute Auto 1.8 X10*3/uL (1.2-4.9); Lymphocytes Percent Auto 17.3 % (20-40); Mean Corpuscular HGB Conc 34.2 g/dl (31.0-35.0); Mean Corpuscular Hemoglobin 31.2 pg (27.0-33.0); Mean Corpuscular Volume 91.3 fL (80.0-98.0); Monocytes Absolute Auto 0.6 X10*3/uL (0.1-1.2); Monocytes Percent Auto 5.9 % (2-11); Neutrophils Absolute Auto 7.6 x10*3/uL (2.0-8.3); Neutrophils Percent Auto 74.7 % (45-73); Platelet Count 209 X10*3/uL (160-400); Red Blood Count 3.33 X10*6/uL (4.20-5.50); Red Cell Distribution Width 16.9 % (11.0-16.0); White Blood Count 10.2 X10*3/uL (4.8-10.8)
[2021-04-26] MEDS: Acetaminophen 325 MG TABLET 650 MG PO (00:01)
[2021-04-26 00:02] VITALS: BP 136/84; PULSE 84
[2021-04-26] MEDS: Nitroglycerin 2 % Oint 1 GM Packet 0.5 INCH TRANSDERMA (00:02)
[2021-04-26 00:06] LABS: INTERNATIONAL NORM RATIO 1.1 (0.9-1.1); Prothrombin Time 12.5 SEC (9.9-13.0)
[2021-04-26 00:08] LABS: Partial Thromboplastin Time 34.4 SEC (24.1-38.0)
[2021-04-26 00:15] LABS: COVID-19 Test Negative (Negative)
[2021-04-26 00:18] LABS: Alanine Aminotransferase 10 U/L (0-31); Albumin Level 3.8 g/dL (3.5-5.0); Alkaline Phosphatase 67 U/L (39-117); Anion Gap 13 (12-20); Aspartate Amino Transferase 20 U/L (5-31); Bilirubin Total 0.3 mg/dL (0.0-1.0); Blood Urea Nitrogen 15 mg/dL (9-16); Calcium 8.9 mg/dL (8.4-10.2); Carbon Dioxide 21 mmol/L (22-29); Chloride 113 mmol/L (96-108); Creatinine Clr Calc Pharmacy 21.1; Estimated Glomerular Filt Rate 23; Glucose Random 101 mg/dL (60-115); Magnesium 1.9 mg/dL (1.6-2.6); Potassium 3.7 mmol/L (3.3-5.1); Sodium 143 mmol/L (135-145); Total Protein 6.6 g/dL (6.5-8.0)
[2021-04-26 00:21] LABS: Troponin-I High Sensitivity 8.6 ng/L (<3.5-17.0)
--- NOTE | 2021-04-26 01:14 | ED_ITS ---
HPI - Chest Pain General Chief Complaint: Chest Pain Stated Complaint: chest pressure Time Seen by Provider: 04/25/21 23:34 History of Present Illness HPI narrative: Patient with history of coronary artery disease status post stent placement in LAD in 2013, cardiomyopathy chronic heart failure with reduced ejection fraction diastolic dysfunction, hypertension, hyperlipidemia, status po st ICD placement noticed pain while at home on the left side of the chest since 16:00 without any radiation no shortness of breath no nausea no vomiting patient was given 1 nitro into 4 baby aspirin prior to arrival and felt much better now patient does get pain off and on in the past but never been given nitroglycerin patient is supposed to be on aspirin but she is not taking it Related Data Home Medications Medication Instructions Recorded Confirmed methylcellulose (laxative) 500 mg 500 mg PO BID PRN 03/31/20 11/30/20 tablet (Fiber Laxative (methylcellulose)) acetaminophen 500 mg tablet 500 mg PO Q6H PRN 05/13/20 11/30/20 albuterol sulfate 90 mcg/actuation 2 puff INHALATION Q4-6H PRN 05/13/20 11/30/20 aerosol inhaler (ProAir HFA) ascorbic acid (vitamin C) 250 mg 250 mg PO BID 05/13/20 11/30/20 tablet atorvastatin 40 mg tablet 40 mg PO BEDTIME 05/13/20 11/30/20 calcium carbonate 600 mg (1,500 1 tab PO BID 05/13/20 11/30/20 mg)-vitamin D3 200 unit tablet (Calcium 600 + D(3)) ferrous gluconate 324 mg (37.5 mg 324 mg PO BID 05/13/20 11/30/20 iron) tablet fluoxetine 20 mg capsule 20 mg PO DAILY 05/13/20 11/30/20 fluticasone propionate 110 2 puff INHALATION BID 05/13/20 11/30/20 mcg/actuation HFA aerosol inhaler gabapentin 300 mg capsule 300 mg PO BID 05/13/20 11/30/20 mirtazapine 30 mg tablet 30 mg PO BEDTIME 05/13/20 11/30/20 amlodipine 5 mg tablet 10 mg PO BEDTIME tab 08/04/20 11/30/20 ferrous gluconate 324 mg (38 mg 324 mg PO BID 08/04/20 11/30/20 iron) tablet Previous Rx's Medication Instructions Recorded tamsulosin 0.4 mg capsule 0.4 mg PO BEDTIME #14 cap 06/23/20 tramadol 50 mg tablet 50 mg PO Q6H PRN #14 tab 06/23/20 nystatin 100,000 unit/gram topical 1 appl TOPICAL TID 30 Days #30 g 07/13/20 ointment carvedilol 25 mg tablet 37.5 mg PO BID 90 Days #270 tab 10/22/20 sacubitril 97 mg-valsartan 103 mg 1 tab PO BID 90 Days #180 tab 10/22/20 tablet (Entresto) cefuroxime axetil 500 mg tablet 500 mg PO Q12H 7 Days #14 tab 11/14/20 pyridoxine (vitamin B6) 100 mg 100 mg PO DAILY 90 Days #90 tab 11/19/20 tablet imipramine HCl 25 mg tablet 25 mg PO BEDTIME #30 tab 11/23/20 dicyclomine 20 mg tablet 20 mg PO QID #120 tab 12/16/20 docusate sodium 100 mg capsule 100 mg PO BID #60 cap 01/13/21 omeprazole 20 mg capsule,delayed 20 mg PO BID #60 cap 04/19/21 release Allergies Allergy/AdvReac Type Severity Reaction Status Date / Time Iodinated Contrast Media Allergy Severe ANGIOEDEMA Verified 11/30/20 14:00 [CONTRAST,IV] Review of Systems Review of Systems: Yes all other systems are reviewed and are negative [facility] Past Medical History Medical History CAD (coronary artery disease) Cardiomyopathy Chronic heart failure with reduced ejection fraction and diastolic dysfunction GERD (gastroesophageal reflux disease) History of asthma HTN (hypertension) Hx of sepsis Hyperlipidemia ICD (implantable cardioverter-defibrillator) in place Surgical History H/O hemorrhoidectomy Hx of colonoscopy Hx of cystoscopy Stented coronary artery Family History Family History Father Diabetes HTN (hypertension) Mother Diabetes HTN (hypertension) Sister Throat cancer Social History Social History Household Members: None Housing: Apartment Do you presently have visiting nurse or other home services: No Alcohol intake: never Patient Tobacco Use Status: Current everyday Tobacco user Cigarettes Per Day: 1 Years Smoked: 38 Use of substances other than those prescribed or required for medical reasons: Yes Substance Use Type: Marijuana Advance Directives: No service: No Current occupational status: unemployed and disabled Physical Exam Vital Signs: Vital Signs: Last Vital Signs Temp 97.7 F 04/26/21 01:59 Pulse 81 04/26/21 01:59 Resp 20 04/26/21 01:59 BP 123/83 04/26/21 01:59 Pulse Ox 99 04/26/21 01:59 Body Mass Index 20.3 Appearance: Alert. Oriented X3. No acute distress. Still complaining of dull chest pain 09/11 Eyes: No pallor/ icterus ENT: Pharynx normal. Oral Mucosa moist Neck: Normal inspection. Neck supple. CVS: Normal heart rate and rhythm. Pulses normal. No murmur or gallop Respiratory: No respiratory distress. Equal air entry bilateral, no wheezing/rales/rhonchi Abdomen: Soft and nontender. Bowel sounds are present, no mass palpable, no CVA tenderness Skin: Skin warm and dry. Normal skin color. Normal skin turgor. Extremities: No lower extremity edema. No calf tenderness Neuro: Oriented X 3. No motor deficit. MDM - Chest Pain MDM Narrative Medical decision making narrative: Patient wih significant coronary artery disease with elevated creatinine to 2.13 from previous creatinine of 1.56 and 11/22 with significant chest pain improvement after nitro glycerin will admit patient to rule out ACS initial high sensitive troponin is 8.6 which is her baseline Medical Records Data Attestation: I reviewed the patient's medical records. Lab Data Attestation: I reviewed the patient's lab results. Result diagrams: 04/25/21 23:50 04/25/21 23:50 Labs: Lab Results 04/25/21 04/25/21 04/25/21 Range/Units 23:44 23:50 23:50 WBC 10.2 (4.8-10.8) X10*3/uL RBC 3.33 L (4.20-5.50) X10*6/uL Hgb 10.4 L (12.0-16.0) g/dl Hct 30.4 L (37.0-47.0) % MCV 91.3 (80.0-98.0) fL MCH 31.2 (27.0-33.0) pg MCHC 34.2 (31.0-35.0) g/dl RDW 16.9 H (11.0-16.0) % Plt Count 209 (160-400) X10*3/uL MPV 9.0 L (9.4-12.3) fL Immature Gran % (Auto) 0.3 (0.0-0.4) % Neut % (Auto) 74.7 H (45-73) % Lymph % (Auto) 17.3 L (20-40) % [place] % (Auto) 5.9 (2-11) % Eos % (Auto) 1.3 (0-4) % Baso % (Auto) 0.5 (0-2) % Lymph # (Auto) 1.8 (1.2-4.9) X10*3/uL [place] # (Auto) 0.6 (0.1-1.2) X10*3/uL Eos # (Auto) 0.1 (0.0-0.4) X10*3/uL Baso # (Auto) 0.1 (0.0-0.2) X10*3/uL Abs Immat Gran (auto) 0.03 (0.00-0.03) X10*3/uL Absolute Neuts (auto) 7.6 (2.0-8.3) x10*3/uL Absolute Nucleated RBC 0.000 (0.0-0.012) X10*3/uL Nucleated RBC % (auto) 0.0 (0.0-0.2) /100WBC PT 12.5 (9.9-13.0) SEC INR 1.1 (0.9-1.1) APTT 34.4 (24.1-38.0) SEC Sodium (135-145) mmol/L Potassium (3.3-5.1) mmol/L Chloride (96-108) mmol/L Carbon Dioxide (22-29) mmol/L Anion Gap (12-20) BUN (9-16) mg/dL Creatinine (0.5-1.4) mg/dL Estim Creat Clear Calc Estimated GFR Random Glucose (60-115) mg/dL Calcium (8.4-10.2) mg/dL Magnesium (1.6-2.6) mg/dL Total Bilirubin (0.0-1.0) mg/dL AST (5-31) U/L ALT (0-31) U/L Alkaline Phosphatase (39-117) U/L Troponin I High Sens (<3.5-17.0) ng/L Total Protein (6.5-8.0) g/dL Albumin (3.5-5.0) g/dL COVID-19 (RICK) Negative (Negative) COVID-19 Clin Com See Note 04/25/21 04/25/21 Range/Units 23:50 23:50 WBC (4.8-10.8) X10*3/uL RBC (4.20-5.50) X10*6/uL Hgb (12.0-16.0) g/dl Hct (37.0-47.0) % MCV (80.0-98.0) fL MCH (27.0-33.0) pg MCHC (31.0-35.0) g/dl RDW (11.0-16.0) % Plt Count (160-400) X10*3/uL MPV (9.4-12.3) fL Immature Gran % (Auto) (0.0-0.4) % Neut % (Auto) (45-73) % Lymph % (Auto) (20-40) % [place] % (Auto) (2-11) % Eos % (Auto) (0-4) % Baso % (Auto) (0-2) % Lymph # (Auto) (1.2-4.9) X10*3/uL [place] # (Auto) (0.1-1.2) X10*3/uL Eos # (Auto) (0.0-0.4) X10*3/uL Baso # (Auto) (0.0-0.2) X10*3/uL Abs Immat Gran (auto) (0.00-0.03) X10*3/uL Absolute Neuts (auto) (2.0-8.3) x10*3/uL Absolute Nucleated RBC (0.0-0.012) X10*3/uL Nucleated RBC % (auto) (0.0-0.2) /100WBC PT (9.9-13.0) SEC INR (0.9-1.1) APTT (24.1-38.0) SEC Sodium 143 (135-145) mmol/L Potassium 3.7 (3.3-5.1) mmol/L Chloride 113 H (96-108) mmol/L Carbon Dioxide 21 L (22-29) mmol/L Anion Gap 13 (12-20) BUN 15 (9-16) mg/dL Creatinine 2.13 H (0.5-1.4) mg/dL Estim Creat Clear Calc 21.1 Estimated GFR 23 Random Glucose 101 (60-115) mg/dL Calcium 8.9 (8.4-10.2) mg/dL Magnesium 1.9 (1.6-2.6) mg/dL Total Bilirubin 0.3 (0.0-1.0) mg/dL AST 20 (5-31) U/L ALT 10 (0-31) U/L Alkaline Phosphatase 67 (39-117) U/L Troponin I High Sens 8.6 (<3.5-17.0) ng/L Total Protein 6.6 (6.5-8.0) g/dL Albumin 3.8 (3.5-5.0) g/dL COVID-19 (RICK) (Negative) COVID-19 Clin Com ECG Data ECG #1: Attestation: I personally reviewed and interpreted this ECG as follows: Interpretation: Normal sinus rhythm heart rate 97 beats per minute QTC 530msec no acute STT wave changes no acute ischemia Critical Care Time Critical Care Time Critical Care Time: Yes Total Critical Care Time: 35 Attestation: I spent 35 minutes of critical care, with interventions, assessments, speaking to patient Discharge Plan Discharge Clinical Impression: Acute kidney injury superimposed on CKD Chest pain Qualifiers: Chest pain type: precordial pain Qualified Code(s): R07.2 - Precordial pain Patient Disposition: Admitted As Inpatient
[2021-04-26 01:38] VITALS: BP 119/78; PULSE 83; RESP 16
--- NOTE | 2021-04-26 01:42 | P.HPHOSP_ITS ---
History of Present Illness Date of Service: 04/26/21 Chief Complaint: Chest pain 66-year-old female with a past medical history of hypertension, hyperlipidemia, CAD, CHF, GERD, history of V-tach status post ICD placement, chronic kidney disease presented to the hospital today with a chief complaint of chest pain. Patient reported that she had chest pain started this evening; located in the center of the chest, nonradiating, no associated lightheadedness dizziness shortness of breath nausea or vomiting. Denies any fever chills cough. Denies any numbness tingling or focal weakness. Denies any recent travel or sick contacts. ER course: As mentioned with the ER team patient received aspirin sublingual nitroglycerin by the EMS with chest pain improving. In the ER patient was given nitro paste and chest pain resolved. EKG was nonischemic. Troponin was 8. On labs also noted to have elevated creatinine consistent with the ADY on CKD. Admitted for further management. [facility] Medical History CAD (coronary artery disease) Cardiomyopathy Chronic heart failure with reduced ejection fraction and diastolic dysfunction GERD (gastroesophageal reflux disease) History of asthma HTN (hypertension) Hx of sepsis Hyperlipidemia ICD (implantable cardioverter-defibrillator) in place Family History Father Diabetes HTN (hypertension) Mother Diabetes HTN (hypertension) Sister Throat cancer Pertinent family history: As mentioned above Surgical History H/O hemorrhoidectomy Hx of colonoscopy Hx of cystoscopy Stented coronary artery Social History Household Members: None Housing: Apartment Do you presently have visiting nurse or other home services: No Alcohol intake: never Patient Tobacco Use Status: Current everyday Tobacco user Cigarettes Per Day: 1 Years Smoked: 38 Use of substances other than those prescribed or required for medical reasons: Yes Substance Use Type: Marijuana Advance Directives: No service: No Current occupational status: unemployed and disabled Meds Allergies Allergy/AdvReac Type Severity Reaction Status Date / Time Iodinated Contrast Media Allergy Severe ANGIOEDEMA Verified 11/30/20 14:00 [CONTRAST,IV] Active Medications: Current Medications Sodium Chloride (Ns) 500 mls @ 500 mls/hr IV .Q1H LIZBETH Stop: 04/26/21 02:29 Home Medications Medication Instructions Recorded Confirmed Last Taken Type methylcellulose (laxative) 500 mg 500 mg PO BID PRN 03/31/20 11/30/20 Unknown History tablet (Fiber Laxative (methylcellulose)) acetaminophen 500 mg tablet 500 mg PO Q6H PRN 05/13/20 11/30/20 Unknown History albuterol sulfate 90 mcg/actuation 2 puff INHALATION Q4-6H PRN 05/13/20 11/30/20 Unknown History aerosol inhaler (ProAir HFA) ascorbic acid (vitamin C) 250 mg 250 mg PO BID 05/13/20 11/30/20 Unknown History tablet atorvastatin 40 mg tablet 40 mg PO BEDTIME 05/13/20 11/30/20 Unknown History calcium carbonate 600 mg (1,500 1 tab PO BID 05/13/20 11/30/20 Unknown History mg)-vitamin D3 200 unit tablet (Calcium 600 + D(3)) ferrous gluconate 324 mg (37.5 mg 324 mg PO BID 05/13/20 11/30/20 Unknown History iron) tablet fluoxetine 20 mg capsule 20 mg PO DAILY 05/13/20 11/30/20 Unknown History fluticasone propionate 110 2 puff INHALATION BID 05/13/20 11/30/20 Unknown History mcg/actuation HFA aerosol inhaler gabapentin 300 mg capsule 300 mg PO BID 05/13/20 11/30/20 Unknown History mirtazapine 30 mg tablet 30 mg PO BEDTIME 05/13/20 11/30/20 Unknown History amlodipine 5 mg tablet 10 mg PO BEDTIME tab 08/04/20 11/30/20 Unknown History ferrous gluconate 324 mg (38 mg 324 mg PO BID 08/04/20 11/30/20 Unknown History iron) tablet Physical Exam Vital Signs and Narrative: Vital Signs: Last Vital Signs Temp 98.3 F 04/25/21 23:39 Pulse 83 04/26/21 01:38 Resp 16 04/26/21 01:38 BP 119/78 04/26/21 01:38 Pulse Ox 98 04/25/21 23:39 Body Mass Index 20.3 Gen: Appears be in no acute distress HEENT: NCAT, Moist mucosa. Pulmonary: Vesicular breath sounds, fair air entry CVS: Normal S1-S2 Abdomen: BS+, Soft, Nontender Extremities: Warm well perfused Neuro: Alert and awake. Results Labs CBC and Chem 7: 04/25/21 23:50 04/25/21 23:50 Labs: Laboratory Results - last 24 hr 04/25/21 04/25/21 04/25/21 23:44 23:50 23:50 MCV 91.3 MCH 31.2 MCHC 34.2 RDW 16.9 H Plt Count 209 MPV 9.0 L Immature Gran % (Auto) 0.3 Neut % (Auto) 74.7 H Lymph % (Auto) 17.3 L [place] % (Auto) 5.9 Eos % (Auto) 1.3 Baso % (Auto) 0.5 Lymph # (Auto) 1.8 [place] # (Auto) 0.6 Eos # (Auto) 0.1 Baso # (Auto) 0.1 Abs Immat Gran (auto) 0.03 Absolute Neuts (auto) 7.6 Absolute Nucleated RBC 0.000 Nucleated RBC % (auto) 0.0 PT 12.5 INR 1.1 APTT 34.4 Anion Gap Estim Creat Clear Calc Estimated GFR Random Glucose Calcium Magnesium Total Bilirubin AST ALT Alkaline Phosphatase Troponin I High Sens Total Protein Albumin COVID-19 (RICK) Negative COVID-19 Clin Com See Note 04/25/21 04/25/21 23:50 23:50 MCV MCH MCHC RDW Plt Count MPV Immature Gran % (Auto) Neut % (Auto) Lymph % (Auto) [place] % (Auto) Eos % (Auto) Baso % (Auto) Lymph # (Auto) [place] # (Auto) Eos # (Auto) Baso # (Auto) Abs Immat Gran (auto) Absolute Neuts (auto) Absolute Nucleated RBC Nucleated RBC % (auto) PT INR APTT Anion Gap 13 Estim Creat Clear Calc 21.1 Estimated GFR 23 Random Glucose 101 Calcium 8.9 Magnesium 1.9 Total Bilirubin 0.3 AST 20 ALT 10 Alkaline Phosphatase 67 Troponin I High Sens 8.6 Total Protein 6.6 Albumin 3.8 COVID-19 (RICK) COVID-19 Clin Com Imaging Radiologist's Impressions: Impressions Chest X-Ray 04/25/21 23:35 IMPRESSION: No acute intrathoracic disease. Assessment and Plan (1) Chest pain: Qualifiers: Chest pain type: precordial pain Qualified Code(s): R07.2 - Precordial pain Status: Acute 66-year-old female with a past medical history of hypertension, hyperlipidemia, CAD, CHF, GERD, history of V-tach status post ICD placement, chronic kidney disease presented to the hospital today with a chief complaint of chest pain. Chest pain: Currently resolved. EKG nonischemic. Troponin 8. A repeat troponin pending. Cardiology consult. Sublingual nitroglycerin p.r.n.. In the follow-up troponins are significantly elevated will consider heparin drip. ADY on CKD: Patient's baseline creatinine of 1.5. Hold nephrotoxic medications. Nephrology consult. History of V-tach status post AICD: Continue home amiodarone. History of CHF: Stable. Will continue to monitor. History of hypertension/hyperlipidemia: Continue home carvedilol/statin. For all other chronic conditions, home medications will be continued once med rec is done. DVT prophylaxis: Subcu heparin Code status: Full code Off Note: Things to follow up by the day hospitalist once care taken over at 7:00 a.m. on 04/26/2021: Cardiology follow-up Nephrology consult follow-up Telemetry Troponins Renal in function Quality Stroke Does the patient have a stroke diagnosis?: No VTE Prior VTE?: No VTE Risk Level:: Medical - moderate - high VTE Device Contraindication: N/A - Device Ordered VTE Drug Contraindication: Treatment Not Indicated
[2021-04-26] MEDS: 0.9 % Sodium Chloride 500 ML IV (01:44)
--- NOTE | 2021-04-26 01:45 | PC.NURSE ---
pt reports she no longer has chest pain. pt sleeping. no sign of distress. medicated per MAr.
[2021-04-26 01:59] VITALS: BP 123/83; PULSE 81; RESP 20; TEMP 36.5; O2SAT 99
[2021-04-26 04:47] LABS: Basophils Absolute Auto 0.1 X10*3/uL (0.0-0.2); Eosinophils Absolute Auto 0.1 X10*3/uL (0.0-0.4); Eosinophils Percent Auto 1.8 % (0-4); Hematocrit 28.2 % (37.0-47.0); Hemoglobin 9.7 g/dl (12.0-16.0); Imm Gran Abs Auto 0.01 X10*3/uL (0.00-0.03); Imm Gran Pct Auto 0.1 % (0.0-0.4); Lymphocytes Absolute Auto 2.7 X10*3/uL (1.2-4.9); Lymphocytes Percent Auto 34.7 % (20-40); Mean Corpuscular HGB Conc 34.4 g/dl (31.0-35.0); Mean Corpuscular Hemoglobin 31.6 pg (27.0-33.0); Mean Corpuscular Volume 91.9 fL (80.0-98.0); Mean Platelet Volume 8.8 fL (9.4-12.3); Monocytes Absolute Auto 0.5 X10*3/uL (0.1-1.2); Neutrophils Absolute Auto 4.3 x10*3/uL (2.0-8.3); Neutrophils Percent Auto 55.4 % (45-73); Platelet Count 186 X10*3/uL (160-400); Red Blood Count 3.07 X10*6/uL (4.20-5.50); Red Cell Distribution Width 17.1 % (11.0-16.0); White Blood Count 7.7 X10*3/uL (4.8-10.8)
[2021-04-26 04:48] LABS: MANUAL DIFF FLAG NO
[2021-04-26 05:06] LABS: Anion Gap 12 (12-20); Blood Urea Nitrogen 15 mg/dL (9-16); Calcium 8.4 mg/dL (8.4-10.2); Carbon Dioxide 20 mmol/L (22-29); Chloride 115 mmol/L (96-108); Creatinine Clr Calc Pharmacy 22.1; Estimated Glomerular Filt Rate 24; Glucose Random 86 mg/dL (60-115); Potassium 3.7 mmol/L (3.3-5.1); Sodium 143 mmol/L (135-145)
[2021-04-26 05:07] LABS: Troponin-I High Sensitivity 7.5 ng/L (<3.5-17.0)
[2021-04-26] MEDS: Heparin Sodium,Porcine 5,000 UNIT/ML VIAL 5000 UNIT SUBCUT ×2 (06:39→14:36)
[2021-04-26 07:10] VITALS: BP 114/76; PULSE 76; RESP 17; O2SAT 98
--- NOTE | 2021-04-26 07:10 | PC.NURSE ---
Assumed care of patient. Pt is sleeping at this time and appears to be resting comfortably and in no distress. Pt remains on the awake overnight monitor
--- NOTE | 2021-04-26 08:59 | MHC.CM.PN ---
Met with patient in regards to discharge planning. Patient lives alone, ambulates independently and has [employer] services through [facility]. PCP verified. Copy of HCP verified to be on file. Patient received 3 Pfizer vaccines. Obs notice explained and signed. Patient will need C shuttle for transport home when medically stable. Continue to monitor for d/c needs.
--- NOTE | 2021-04-26 09:28 | P.CONCA_ITS ---
History of Present Illness History of Present Illness Date of Service: 04/26/21 Requesting physician: Dalia Nye Chief complaint: Atypical chest pain Narrative: I was consulted on Georgiana whom I follow in cardiology clinic. She has prior history of cardiomyopathy status post single-chamber ICD for primary prevention, CAD status post LAD stenting on good medical therapy with NYHA class 1 heart failure syndrome. Has done well on neurohormonal modulation with Entresto and carvedilol. History was obtained with help of funeral car driver in the room. Patient present the hospital because yesterday she developed headache followed by discomfort in her left arm and then chest pain. She describes his chest pain as sharp pressure. Pain is worse with deep breathing as well as tenderness to touch. Patient does not have recent exertional chest pain. He does have some diffuse muscle aches. She denies any fever or chills. Denies any recent exposure to people with viral syndrome. However she is noted to have acute kidney injury of unclear etiology. Creatinine is similar to with was in November of this year. Admits to adequate oral intake. Denies any heart failure symptoms. Denies any palpitations, syncope, ICD discharge. Review of Systems Constitutional: Constitutional: Reports body ache(s), Denies chills, Denies fever(s) and Reports malaise Eyes: Eyes: Reports no additional eye complaints ENT: Reports system reviewed and no additional complaints, except as documented Cardiovascular: Cardiovascular: Reports chest pain ( Continue since yesterday), Denies leg edema, Denies lightheadedness, Denies Loss of Consciousness, Denies palpitations, Denies dyspnea on exertion and Denies orthopnea Respiratory: Respiratory: Denies cough and Denies dyspnea on exertion Gastrointestinal: Gastrointestinal: Reports no additional gastrointestinal complaints Genitourinary: Genitourinary: Reports dysuria Musculoskeletal: Musculoskeletal: Reports myalgias Neurologic: Reports system reviewed and no additional complaints, except as documented Endocrine: Endocrine: Denies palpitations PMFSH Past Medical History Medical History CAD (coronary artery disease) Cardiomyopathy Chronic heart failure with reduced ejection fraction and diastolic dysfunction GERD (gastroesophageal reflux disease) History of asthma HTN (hypertension) Hx of sepsis Hyperlipidemia ICD (implantable cardioverter-defibrillator) in place Family History Family History Father Diabetes HTN (hypertension) Mother Diabetes HTN (hypertension) Sister Throat cancer Surgical History Surgical History H/O hemorrhoidectomy Hx of colonoscopy Hx of cystoscopy Stented coronary artery Social History Social History Household Members: None Housing: Apartment Do you presently have visiting nurse or other home services: No Alcohol intake: never Patient Tobacco Use Status: Current everyday Tobacco user Cigarettes Per Day: 1 Years Smoked: 38 Use of substances other than those prescribed or required for medical reasons: Yes Substance Use Type: Marijuana Advance Directives: No service: No Current occupational status: unemployed and disabled Meds Allergies Allergy/AdvReac Type Severity Reaction Status Date / Time Iodinated Contrast Media Allergy Severe ANGIOEDEMA Verified 11/30/20 14:00 [CONTRAST,IV] Active Medications: Current Medications Acetaminophen (Acetaminophen 325 Mg Tablet) 650 mg PO Q6H PRN PRN Reason: Pain, Mild (Pain Scale 1-3) Heparin Sodium (Porcine) (Heparin Sodium,Porcine 5,000 Unit/Ml Vial) 5,000 unit SUBCUT Q8H [facility] Last Admin: 04/26/21 06:39 Dose: 5,000 unit Documented by: Melatonin (Melatonin 3 Mg Tablet) 6 mg PO BEDTIME PRN PRN Reason: Insomnia Nitroglycerin (Nitroglycerin 0.4 Mg Tab.Subl) 0.4 mg SUBLINGUAL Q5MX3 PRN PRN Reason: Chest Pain Senna (Sennosides 8.6 Mg Tablet) 17.2 mg PO BEDTIME PRN PRN Reason: Constipation Sodium Chloride (0.9 % Sodium Chloride Flush 3 Ml Syringe) 3 ml IVFLUSH QSHIFT [facility] Last Admin: 04/26/21 07:12 Dose: Not Given Documented by: Home Medications Medication Instructions Recorded Confirmed Last Taken Type methylcellulose (laxative) 500 mg 500 mg PO BID PRN 03/31/20 11/30/20 Unknown History tablet (Fiber Laxative (methylcellulose)) acetaminophen 500 mg tablet 500 mg PO Q6H PRN 05/13/20 11/30/20 Unknown History albuterol sulfate 90 mcg/actuation 2 puff INHALATION Q4-6H PRN 05/13/20 11/30/20 Unknown History aerosol inhaler (ProAir HFA) ascorbic acid (vitamin C) 250 mg 250 mg PO BID 05/13/20 11/30/20 Unknown History tablet atorvastatin 40 mg tablet 40 mg PO BEDTIME 05/13/20 11/30/20 Unknown History calcium carbonate 600 mg (1,500 1 tab PO BID 05/13/20 11/30/20 Unknown History mg)-vitamin D3 200 unit tablet (Calcium 600 + D(3)) fluoxetine 20 mg capsule 20 mg PO DAILY 05/13/20 11/30/20 Unknown History gabapentin 300 mg capsule 300 mg PO BID 05/13/20 11/30/20 Unknown History mirtazapine 30 mg tablet 30 mg PO BEDTIME 05/13/20 11/30/20 Unknown History ferrous gluconate 324 mg (38 mg 324 mg PO BID 08/04/20 11/30/20 Unknown History iron) tablet amlodipine 10 mg tablet 1 tab PO QPM 04/26/21 Unknown History fluticasone 250 mcg-salmeterol 50 1 puff INHALATION BID 04/26/21 Unknown History mcg/dose blistr powdr for inhalation (Advair Diskus) guaifenesin 600 mg tablet, 1 tab PO Q12H PRN 04/26/21 Unknown History extended release 12 hr (Mucus Relief ER) imipramine HCl 50 mg tablet 1 tab PO BEDTIME 04/26/21 Unknown History Physical Exam Vital Signs: Vital Signs: Last Vital Signs Temp 97.7 F 04/26/21 01:59 Pulse 76 04/26/21 07:10 Resp 17 04/26/21 07:10 BP 114/76 04/26/21 07:10 Pulse Ox 98 04/26/21 07:10 Body Mass Index 20.3 Const: General: cooperative, comfortable, no acute distress, alert and awake Nutritional Appearance: underweight Orientation/consciousness: patient oriented x3 Limitations: no limitations HENMT: Head: Yes normocephalic and Yes atraumatic Neck: Neck: Yes trachea midline, Yes supple and Yes no JVD Chest: Chest palpation & inspection: normal inspection of the chest, localized rib tenderness with anteroposterior compression and other Resp: Effort & Inspection: normal respiratory effort Auscultation: clear to auscultation bilaterally Cardio: Jugular venous distension: no JVD Rate: regular rate Rhythm: regular rhythm Heart sounds: S1 normal heart sound present, S2 normal heart sound present, no click, no gallops, no murmurs and no rubs GI: Auscultation: normal bowel sounds Skin: General skin exam: no rashes or lesions noted Neuro: General: patient oriented x3 and no focal motor deficits Extrem: General: Yes no clubbing, cyanosis or edema Objective Labs and Meds Result diagrams: 04/26/21 04:43 04/26/21 04:43 Lab results: Laboratory Results - last 24 hr 04/25/21 04/25/21 04/25/21 23:44 23:50 23:50 WBC 10.2 RBC 3.33 L Hgb 10.4 L Hct 30.4 L MCV 91.3 MCH 31.2 MCHC 34.2 RDW 16.9 H Plt Count 209 MPV 9.0 L Immature Gran % (Auto) 0.3 Neut % (Auto) 74.7 H Lymph % (Auto) 17.3 L [place] % (Auto) 5.9 Eos % (Auto) 1.3 Baso % (Auto) 0.5 Lymph # (Auto) 1.8 [place] # (Auto) 0.6 Eos # (Auto) 0.1 Baso # (Auto) 0.1 Abs Immat Gran (auto) 0.03 Absolute Neuts (auto) 7.6 Absolute Nucleated RBC 0.000 Nucleated RBC % (auto) 0.0 PT 12.5 INR 1.1 APTT 34.4 Sodium Potassium Chloride Carbon Dioxide Anion Gap BUN Creatinine Estim Creat Clear Calc Estimated GFR Random Glucose Calcium Magnesium Total Bilirubin AST ALT Alkaline Phosphatase Troponin I High Sens Total Protein Albumin COVID-19 (RICK) Negative COVID-19 Clin Com See Note 04/25/21 04/25/21 04/26/21 23:50 23:50 04:43 WBC 7.7 RBC 3.07 L Hgb 9.7 L Hct 28.2 L MCV 91.9 MCH 31.6 MCHC 34.4 RDW 17.1 H Plt Count 186 MPV 8.8 L Immature Gran % (Auto) 0.1 Neut % (Auto) 55.4 Lymph % (Auto) 34.7 [place] % (Auto) 7.0 Eos % (Auto) 1.8 Baso % (Auto) 1.0 Lymph # (Auto) 2.7 [place] # (Auto) 0.5 Eos # (Auto) 0.1 Baso # (Auto) 0.1 Abs Immat Gran (auto) 0.01 Absolute Neuts (auto) 4.3 Absolute Nucleated RBC 0.000 Nucleated RBC % (auto) 0.0 PT INR APTT Sodium 143 Potassium 3.7 Chloride 113 H Carbon Dioxide 21 L Anion Gap 13 BUN 15 Creatinine 2.13 H Estim Creat Clear Calc 21.1 Estimated GFR 23 Random Glucose 101 Calcium 8.9 Magnesium 1.9 Total Bilirubin 0.3 AST 20 ALT 10 Alkaline Phosphatase 67 Troponin I High Sens 8.6 Total Protein 6.6 Albumin 3.8 COVID-19 (RICK) COVID-19 [employer] Com 04/26/21 04/26/21 04:43 04:43 WBC RBC Hgb Hct MCV MCH MCHC RDW Plt Count MPV Immature Gran % (Auto) Neut % (Auto) Lymph % (Auto) Treasure % (Auto) Eos % (Auto) Baso % (Auto) Lymph # (Auto) [place] # (Auto) Eos # (Auto) Baso # (Auto) Abs Immat Gran (auto) Absolute Neuts (auto) Absolute Nucleated RBC Nucleated RBC % (auto) PT INR APTT Sodium 143 Potassium 3.7 Chloride 115 H Carbon Dioxide 20 L Anion Gap 12 BUN 15 Creatinine 2.03 H Estim Creat Clear Calc 22.1 Estimated GFR 24 Random Glucose 86 Calcium 8.4 Magnesium Total Bilirubin AST ALT Alkaline Phosphatase Troponin I High Sens 7.5 Total Protein Albumin COVID-19 (RICK) COVID-19 Clin Com EKG shows no acute ischemic changes Imaging Radiologist's impression: Impressions Chest X-Ray 04/25/21 23:35 IMPRESSION: No acute intrathoracic disease. Assessment and Plan (1) Chest pain: Qualifiers: Chest pain type: precordial pain Qualified Code(s): R07.2 - Precordial pain Status: Acute patient presents with diffuse pain as well as noted to have chest pain which is very atypical and reproducible. Unlikely to represent acute coronary syndrome. This is supported by negative EKG as well as negative troponins. No further inpatient cardiac workup is needed. Concerning about her creatinine. This needs to be pursued question as inpatient versus outpatient. Will leave that up to the hospitalist team. Her Entresto can be withheld for now till you have a Nephrology consult. Continue carvedilol therapy. Advise adequate oral hydration. Will sign of the case. Procedures Date of Service Date of Service: 04/26/21
[2021-04-26 10:23] LABS: Appearance Urine CLOUDY; Color Urine YELLOW; Glucose Urine UA NEG (NEG); Leukocyte Esterase Urine TRACE (NEG); Nitrite Urine NEG (NEG); Specific Gravity - Urine 1.025 (1.005-1.025); UACC Culture Trigger YES; Urine Blood NEG (NEG); Urine Ketones NEG (NEG); Urine Protein 1+ MG/DL (NEG-TRACE)
[2021-04-26 10:42] LABS: Bacteria Urine 4+ /LPF; RBC Urine 0 /HPF (0); Squamous Epithelial Cell Urine 1+ /LPF
--- NOTE | 2021-04-26 11:54 | P.EN_ITS ---
Event Note Date of Service: 04/26/21 Event Note: 66-year-old female with a past medical history of hypertension, hy perlipidemia, CAD, CHF, GERD, history of V-tach status post ICD placement, chronic kidney disease presented to the hospital today with a chief complaint of chest pain. Chest pain. Hx of CAD EKG non ischemic. troponins flat seen and evaluated by cardiology, cleared from their perspective UTI Rocephin follow urine cx ADY on CKD Patient's baseline creatinine of 1.5.? Hold nephrotoxic medications.? Nephrology consult. History of V-tach status post AICD Continue home amiodarone.? History of CHF. no exacerbation Stable.? Will continue to monitor.? DISPO Home when creat more stable DVT prophylaxis Subcu heparin Code status: Full code Attending Dr. Colon
[2021-04-26 12:33] VITALS: BP 135/94; PULSE 77; RESP 20; O2SAT 99
[2021-04-26] MEDS: cefTRIAXone sodium 1 GM in 0.9 % Sodium Chloride 50 ML IV (12:33)
[2021-04-26 13:44] LABS: Potassium 3.8 mmol/L (3.3-5.1); Sodium 143 mmol/L (135-145)
[2021-04-26 13:45] LABS: Anion Gap 12 (12-20); Blood Urea Nitrogen 14 mg/dL (9-16); Calcium 8.5 mg/dL (8.4-10.2); Carbon Dioxide 21 mmol/L (22-29); Chloride 114 mmol/L (96-108); Creatinine Clr Calc Pharmacy 22.4; Estimated Glomerular Filt Rate 25; Glucose Random 112 mg/dL (60-115)
--- NOTE | 2021-04-26 16:11 | PM.DS ---
DS: Providers Provider Date of Service: 04/26/21 <Dalia Nye NP - Last Filed: 04/26/21 16:28> Date of admission: 04/26/21 01:39 <Dalia Nye NP - Last Filed: 04/26/21 16:28> Primary care physician: Kianna Nunez MD <Dalia Nye NP - Last Filed: 04/26/21 16:28> Consults: 04/26/21 01:39 Consult to Cardiology Routine Consulting Provider: Kleber Liu Reason for consultation: chest pain 04/26/21 01:49 Consult to Nephrology Routine Consulting Provider: Yovanny Dos Santos Reason for consultation: ADY on KCD <Dalia Nye NP - Last Filed: 04/26/21 16:28> Attending physician on discharge: Brian Colon <Dalia Nye NP - Last Filed: 04/26/21 16:28> Discharging clinician: Dalia Nye <Dalia Nye NP - Last Filed: 04/26/21 16:28> DS: Diagnosis Discharge Diagnosis (1) Chest pain: Status: Acute <Dalia Nye NP - Last Filed: 04/26/21 16:28> (2) Acute kidney injury superimposed on CKD: Status: Acute <Dalia Nye NP - Last Filed: 04/26/21 16:28> (3) UTI (urinary tract infection): Status: Acute <Dalia Nye NP - Last Filed: 04/26/21 16:28> DS: Summary Hospital Course Hospital Course: HP as per admitting provider 66-year-old female with a past medical history of hypertension, hyperlipidemia, CAD, CHF, GERD, history of V-tach status post ICD placement, chronic kidney disease presented to the hospital today with a chief complaint of chest pain.? Patient reported that she had chest pain started this evening; located in the center of the chest, nonradiating, no associated lightheadedness dizziness shortness of breath nausea or vomiting.? Denies any fever chills cough.? Denies any numbness tingling or focal weakness.? Denies any recent travel or sick contacts.?ER course:? As mentioned with the ER team patient received aspirin sublingual nitroglycerin by the EMS with chest pain improving.? In the ER patient was given nitro paste and chest pain resolved.? EKG was nonischemic.? Troponin was 8.? On labs also noted to have elevated creatinine consistent with the ADY on CKD.? Admitted for further management . UTI. treated with IV Rocephin, urine cx pending. No fever, chill, leukocytosis. Continue Ceftin for 7 days. ADY ON CKD. Close to baseline. Likely secondary to UTI. Check BMP in one week Chest pain. Hx of CAD. Seen by Dr. 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 Flat troponins, no ischemic changes on EKG, no need for further inpatient work-up. She can follow up with cardiology as an outpatient. Anemia. No overt bleeding, likely secondary to renal function. Check CBC in one week. <Dalia Nye NP - Last Filed: 04/26/21 16:28> Time Spent with Patient Time attestation: Total time spent providing and/or coordinating discharge services: <Dalia Nye NP - Last Filed: 04/26/21 16:28> Discharge coordination time: Greater than 30 minutes <Dalia Nye NP - Last Filed: 04/26/21 16:28> Quality: Stroke Does the patient have a stroke diagnosis?: No <Dalia Nye NP - Last Filed: 04/26/21 16:28> Physical Exam Vital Signs: Vital Signs: Last Vital Signs Temp 97.7 F 04/26/21 01:59 Pulse 77 04/26/21 12:33 Resp 20 04/26/21 12:33 BP 135/94 H 04/26/21 12:33 Pulse Ox 99 04/26/21 12:33 Body Mass Index 20.3 <Dalia Nye NP - Last Filed: 04/26/21 16:28> Appearing in no acute distress head is normocephalic atraumatic eyes pupils are PERRLA sclera is anicteric mouth throat mucous membranes are intact and moist neck is supple no lymphadenopathy, no JVD noted lung sounds are clear to auscultation heart regular rate rhythm, clear S1, S2 positive bowel sounds, abdomen is soft, nontender neuro patient is alert x3, no focal deficits <Dalia Nye NP - Last Filed: 04/26/21 16:28> DS: Data Data Completed and Pending Completed studies during hospitalization [Text1]: Procedures Dilation of Left Ureter with Intraluminal Device, Via Natural or Artificial Opening Endoscopic (05/12/20) Extirpation of Matter from Left Ureter, Via Natural or Artificial Opening Endoscopic (05/12/20) Fluoroscopy of Left Kidney, Ureter and Bladder (05/12/20) <Dalia Nye NP - Last Filed: 04/26/21 16:28> Labs on day of discharge: Laboratory Results - last 24 hr 04/25/21 04/25/21 04/25/21 23:44 23:50 23:50 WBC 10.2 RBC 3.33 L Hgb 10.4 L Hct 30.4 L MCV 91.3 MCH 31.2 MCHC 34.2 RDW 16.9 H Plt Count 209 MPV 9.0 L Immature Gran % (Auto) 0.3 Neut % (Auto) 74.7 H Lymph % (Auto) 17.3 L [place] % (Auto) 5.9 Eos % (Auto) 1.3 Baso % (Auto) 0.5 Lymph # (Auto) 1.8 [place] # (Auto) 0.6 Eos # (Auto) 0.1 Baso # (Auto) 0.1 Abs Immat Gran (auto) 0.03 Absolute Neuts (auto) 7.6 Absolute Nucleated RBC 0.000 Nucleated RBC % (auto) 0.0 PT 12.5 INR 1.1 APTT 34.4 Sodium Potassium Chloride Carbon Dioxide Anion Gap BUN Creatinine Estim Creat Clear Calc Estimated GFR Random Glucose Calcium Magnesium Total Bilirubin AST ALT Alkaline Phosphatase Troponin I High Sens Total Protein Albumin Urine Color Urine Appearance Urine pH Ur Specific [place] Urine Protein Urine Glucose (UA) Urine Ketones Urine Blood Urine Nitrite Ur Leukocyte Esterase Urine RBC Urine WBC Ur Squamous Epith Cells Urine Bacteria COVID-19 (RICK) Negative COVID-19 Clin Com See Note 04/25/21 04/25/21 04/26/21 23:50 23:50 04:43 WBC 7.7 RBC 3.07 L Hgb 9.7 L Hct 28.2 L MCV 91.9 MCH 31.6 MCHC 34.4 RDW 17.1 H Plt Count 186 MPV 8.8 L Immature Gran % (Auto) 0.1 Neut % (Auto) 55.4 Lymph % (Auto) 34.7 [place] % (Auto) 7.0 Eos % (Auto) 1.8 Baso % (Auto) 1.0 Lymph # (Auto) 2.7 [place] # (Auto) 0.5 Eos # (Auto) 0.1 Baso # (Auto) 0.1 Abs Immat Gran (auto) 0.01 Absolute Neuts (auto) 4.3 Absolute Nucleated RBC 0.000 Nucleated RBC % (auto) 0.0 PT INR APTT Sodium 143 Potassium 3.7 Chloride 113 H Carbon Dioxide 21 L Anion Gap 13 BUN 15 Creatinine 2.13 H Estim Creat Clear Calc 21.1 Estimated GFR 23 Random Glucose 101 Calcium 8.9 Magnesium 1.9 Total Bilirubin 0.3 AST 20 ALT 10 Alkaline Phosphatase 67 Troponin I High Sens 8.6 Total Protein 6.6 Albumin 3.8 Urine Color Urine Appearance Urine pH Ur Specific [place] Urine Protein Urine Glucose (UA) Urine Ketones Urine Blood Urine Nitrite Ur Leukocyte Esterase Urine RBC Urine WBC Ur Squamous Epith Cells Urine Bacteria COVID-19 (RICK) COVID-19 eyefactive Com 04/26/21 04/26/21 04/26/21 04:43 04:43 10:13 WBC RBC Hgb Hct MCV MCH MCHC RDW Plt Count MPV Immature Gran % (Auto) Neut % (Auto) Lymph % (Auto) [place] % (Auto) Eos % (Auto) Baso % (Auto) Lymph # (Auto) [place] # (Auto) Eos # (Auto) Baso # (Auto) Abs Immat Gran (auto) Absolute Neuts (auto) Absolute Nucleated RBC Nucleated RBC % (auto) PT INR APTT Sodium 143 Potassium 3.7 Chloride 115 H Carbon Dioxide 20 L Anion Gap 12 BUN 15 Creatinine 2.03 H Estim Creat Clear Calc 22.1 Estimated GFR 24 Random Glucose 86 Calcium 8.4 Magnesium Total Bilirubin AST ALT Alkaline Phosphatase Troponin I High Sens 7.5 Total Protein Albumin Urine Color YELLOW Urine Appearance CLOUDY Urine pH 6.0 Ur Specific [place] 1.025 Urine Protein 1+ H Urine Glucose (UA) NEG Urine Ketones NEG Urine Blood NEG Urine Nitrite NEG Ur Leukocyte Esterase TRACE H Urine RBC 0 Urine WBC 5-9 H Ur Squamous Epith Cells 1+ Urine Bacteria 4+ COVID-19 (RICK) COVID-19 eyefactive Com 04/26/21 13:22 WBC RBC Hgb Hct MCV MCH MCHC RDW Plt Count MPV Immature Gran % (Auto) Neut % (Auto) Lymph % (Auto) [place] % (Auto) Eos % (Auto) Baso % (Auto) Lymph # (Auto) [place] # (Auto) Eos # (Auto) Baso # (Auto) Abs Immat Gran (auto) Absolute Neuts (auto) Absolute Nucleated RBC Nucleated RBC % (auto) PT INR APTT Sodium 143 Potassium 3.8 Chloride 114 H Carbon Dioxide 21 L Anion Gap 12 BUN 14 Creatinine 2.01 H Estim Creat Clear Calc 22.4 Estimated GFR 25 Random Glucose 112 Calcium 8.5 Magnesium Total Bilirubin AST ALT Alkaline Phosphatase Troponin I High Sens Total Protein Albumin Urine Color Urine Appearance Urine pH Ur Specific [place] Urine Protein Urine Glucose (UA) Urine Ketones Urine Blood Urine Nitrite Ur Leukocyte Esterase Urine RBC Urine WBC Ur Squamous Epith Cells Urine Bacteria COVID-19 (RICK) COVID-19 Clin Com <Dalia Nye NP - Last Filed: 04/26/21 16:28> Discharge Plan Discharge Anticipated Discharge Date/Time: 04/26/21 16:04 <Dalia Nye NP - Last Filed: 04/26/21 16:28> Patient Disposition: Home, Self-Care <Dalia Nye NP - Last Filed: 04/26/21 16:28> Discharge Diagnosis: UTI ADY on CKD Chest pain <Dalia Nye NP - Last Filed: 04/26/21 16:28> UTI ADY on CKD Chest pain <Kashif Thornton MD - Last Filed: 04/30/21 16:42> Referrals: Kianna Nunez MD [Primary Care Provider] - 1 Week <Dalia yNe NP - Last Filed: 04/26/21 16:28> Discharge Medications: New cefuroxime axetil 500 mg tablet 500 mg PO BID Qty: 14 RF: 0 Continued carvedilol 25 mg tablet 37.5 mg PO BID 90 Days Qty: 270 RF: 3 Entresto 97-103 mg tablet 1 tab PO BID 90 Days Qty: 180 RF: 3 pyridoxine (vitamin B6) 100 mg tablet 100 mg PO DAILY 90 Days Qty: 90 RF: 3 dicyclomine 20 mg tablet 20 mg PO QID Qty: 120 RF: 2 docusate sodium 100 mg capsule 100 mg PO BID Qty: 60 RF: 1 omeprazole 20 mg capsule,delayed release(DR/EC) 20 mg PO BID Qty: 60 RF: 3 atorvastatin 40 mg Tablet 40 mg PO BEDTIME RF: 0 calcium carbonate-vitamin D3 [Calcium 600 + D(3)] 600 mg(1,500mg) -200 unit Tablet 1 tab PO BID RF: 0 ascorbic acid (vitamin C) 250 mg Tablet 250 mg PO BID RF: 0 mirtazapine 30 mg Tablet 30 mg PO BEDTIME RF: 0 gabapentin 300 mg Capsule 300 mg PO BID RF: 0 albuterol sulfate [ProAir HFA] 90 mcg/actuation Hfa Aerosol Inhaler 2 puff INHALATION Q4-6H PRN (Reason: Shortness Of Breath) RF: 0 fluoxetine 20 mg Capsule 20 mg PO DAILY RF: 0 fluticasone propion-salmeterol [Advair Diskus] 250-50 mcg/dose blister with device 1 puff inhalation BID RF: 0 imipramine HCl 50 mg tablet 1 tab PO BEDTIME RF: 0 amlodipine 10 mg tablet 1 tab PO QPM RF: 0 guaifenesin [Mucus Relief ER] 600 mg tablet extended release 12hr 1 tab PO Q12H PRN (Reason: Cough) RF: 0 ferrous gluconate 324 mg (38 mg iron) tablet 324 mg PO BID RF: 0 <Dalia Nye NP - Last Filed: 04/26/21 16:28> Discharge Orders: Discharge Order (Routine); Ordered 04/26/21 Ordered By: Dalia Nye <Dalia Nye NP - Last Filed: 04/26/21 16:28> Diet: advance to usual diet <Dalia Nye NP - Last Filed: 04/26/21 16:28> advance to usual diet <Kashif Thornton MD - Last Filed: 04/30/21 16:42> Activity on Discharge: As tolerated <Dalia Nye NP - Last Filed: 04/26/21 16:28> As tolerated <Kashif Thornton MD - Last Filed: 04/30/21 16:42> Stand Alone Forms: Patient Portal Discharge page <Dalia Nye NP - Last Filed: 04/26/21 16:28> Other Ambulatory Orders: Basic Metabolic Panel (Routine) Timeframe: 1 Week Facility: [facility] - Location: Laboratory Ordered By: Dalia Nye Complete Blood Count no Diff (Routine) Timeframe: 1 Week Facility: [facility] - Location: Laboratory Ordered By: Dalia Nye <Dalia Nye NP - Last Filed: 04/26/21 16:28> Care Plan Goals: Resolution of Urinary symptoms. <Dalia Nye NP - Last Filed: 04/26/21 16:28> Health Concerns: UTI AYD on CKD <Dalia Nye NP - Last Filed: 04/26/21 16:28> Plan of Treatment: Take antibiotics as prescribed Check BMP in 1 week to reassess renal function Follow up with your PCP <Dalia Nye NP - Last Filed: 04/26/21 16:28> Assessment: See discharge summary I saw and examined patient and discussed findings and disposition with midlevel provider and i agree with the above <Dalia Nye NP - Last Filed: 04/26/21 16:28> Discharge Date/Time: 04/26/21 16:52 <Dalia Nye NP - Last Filed: 04/26/21 16:28>
--- NOTE | 2021-04-26 16:45 | PC.NURSE ---
Notified Dalia Nye NP that patient wanted to leave A. She ultimately spoke to the patient about being discharged home and Dalia notified this nurse regarding that the paperwork would be ready shortly. When went to go discharge the patient, pt was not in the room. Pt had an IV in the left arm which was not taken out by a nurse and is not noted to be anywhere in the room. Shawn BOCANEGRA contacted and are going to the patient's address for a well being check.
== END 2021-04-26 16:52 | disposition home or self-care (01) ==
LOC: HO.ED 04-26 01:28 → HO.EDOVER 04-26 01:45 → HO.IMC 04-26 22:19 → HO.EDOVER 04-26 22:20
PROVIDERS: Admitting Provider Hospitalist; Emergency Provider Internal Medicine; PCP Family Medicine; Visit Provider Nurse Practitioner Acute Care
DX: R07.2 Precordial pain (principal); I42.9 Cardiomyopathy, unspecified; I25.10 Atherosclerotic heart disease of native coronary artery without angina pectoris; I11.0 Hypertensive heart disease with heart failure; I50.42 Chronic combined systolic (congestive) and diastolic (congestive) heart failure; N17.9 Acute kidney failure, unspecified; N18.9 Chronic kidney disease, unspecified; N39.0 Urinary tract infection, site not specified; K21.9 Gastro-esophageal reflux disease without esophagitis; D64.9 Anemia, unspecified; E78.5 Hyperlipidemia, unspecified; R30.0 Dysuria; R53.83 Other fatigue; I45.81 Long QT syndrome; I45.89 Other specified conduction disorders; F12.20 Cannabis dependence, uncomplicated; Z20.822 Contact with and (suspected) exposure to COVID-19; Z72.0 Tobacco use; Z95.5 Presence of coronary angioplasty implant and graft; Z95.810 Presence of automatic (implantable) cardiac defibrillator; Z83.3 Family history of diabetes mellitus; Z82.49 Family history of ischemic heart disease and other diseases of the circulatory system; Z80.0 Family history of malignant neoplasm of digestive organs; Z91.041 Radiographic dye allergy status; Z79.899 Other long term (current) drug therapy
CPT/HCPCS: 36415; 71045; 80048; 80053; 81001; 83735; 84484; 85025; 85610; 85730; 87086; 87088; 87186; 87635; 93005; 96361; 96365; 96372; 99219; 99285; 99291; J0696

== ENCOUNTER → 2021-08-11 07:44 | Outpatient (REF) | payer OTHER, SELFPAY ==
--- NOTE | ~2021-08-11 | NM_ITS ---
Myocardial perfusion study Indication: Precordial chest pain with prior coronary artery disease and cardiomyopathy to evaluate for myocardial ischemia Technique: The patient was brought in for a Lexiscan perfusion study on 08/11/2021. Patient performed low-level exercise and was injected 0.4 mg of Lexiscan intravenously. Within a minute of injection, 25 mCi of sestamibi was given intravenously. Images were obtained using the SPECT gamma camera interlaced with the gating device. Images were obtained in supine position. Resting perfusion study was performed on 08/15/2021. Patient was administered 25 mCi of sestamibi intravenously at rest. Images were then obtained in supine position. Images obtained with and without CT attenuation. Total DLP 64 mGy-cm. Images were processed with the software and compared side to side in short axis, horizontal long axis and vertical long axis views. Findings: The stress perfusion study showed non attenuated images show mildly reduced uptake in the anterolateral wall as well as inferior wall of the LV myocardium. Remainder of the LV myocardium is normally perfused. Attenuation corrected images show mildly reduced uptake in the apex of the basal inferoseptal wall of the LV myocardium.. The gated study shows reduced LV systolic function with the estimated LVEF of 30-40%%. LV cavity is moderately dilated size. The gated study shows diffusely reduced wall thickening and contraction of all segments. Resting study shows nontender images show improved uptake in the inferior and anterolateral wall.. Gating at rest reveals diffusely reduced wall motion with ejection fraction at 28%. The findings are consistent with possible ischemia of the anterolateral and inferior wall on non attenuated images.. NM/NM tammy perf SPECT rest & str Impression: 1. Myocardial perfusion imaging study shows mild intensity anterolateral and inferior 2. Gated LVEF is 28% at rest 3. Transient ischemic dilatation not present but LV cavity is dilated EKG is nondiagnostic for ischemia
--- NOTE | 2021-08-11 07:48 | CA_ITS ---
Acquisition Time: 2021-08-11 07:57:45 Total Exercise Time: 00:02:00 Test Indications: CP Medications: SEE CHART Protocol: LEXISCAN Max HR: 112 BPM 73% of Pred: 153 BPM Max BP: 128/078 mmHG Max Work Load: 1.7 METS Pharmacological stress test with Lexiscan injection, while walking on treadmill without anginal symptoms, without arrythmia, with normotensive response to injection, with nondiagnostic EKG for ischemia. In recovery she reported feeling strange and was treated with Aminophylline 75mg IVP to reverse Lexiscan with resolution of symptom. Nuclear images pending. Test reviewed with Dr Liu. Referred By: Kleber Liu Overread By: SHAN PRITCHARD
== END ==
LOC: HO.CARD 07:44
PROVIDERS: Visit Provider Internal Medicine Cardiovascular Disease
DX: R07.2 Precordial pain (principal); I25.10 Atherosclerotic heart disease of native coronary artery without angina pectoris; I42.9 Cardiomyopathy, unspecified
CPT/HCPCS: 78452; 93017; A9500; J0280; J2785

== ENCOUNTER → 2021-08-15 10:00 | Outpatient (REF) | payer OTHER, SELFPAY | LOC: HO.NUCMED 10:00 | PROVIDERS: PCP Family Medicine; Visit Provider Internal Medicine Cardiovascular Disease | DX: Z13.89 Encounter for screening for other disorder (principal) ==

== ENCOUNTER 2021-08-18 | Outpatient (REF) | payer OTHER, SELFPAY | END 2021-08-18 00:01 | LOC: CF | PROVIDERS: PCP Family Medicine; Visit Provider Internal Medicine Cardiovascular Disease | DX: I25.10 Atherosclerotic heart disease of native coronary artery without angina pectoris (principal); I42.9 Cardiomyopathy, unspecified; Z45.02 Encounter for adjustment and management of automatic implantable cardiac defibrillator | CPT/HCPCS: 99212 ==

== ENCOUNTER 2021-12-14 11:11 | Emergency (ER) | payer OTHER, SELFPAY ==
--- NOTE | ~2021-12-14 | XR_ITS ---
EXAMINATION: THE HUMERUS AND RIGHT SHOULDER X-RAY CLINICAL INFORMATION: Fall. Pain. COMPARISON: None TECHNIQUE: 3 views of the right shoulder and 2 views of the humerus FINDINGS: Right shoulder: Bone alignment is normal. No fracture or dislocation is seen. Glenohumeral joint is normal. There is mild arthritis at the acromioclavicular clavicular joint. Soft tissues are normal. Right humerus: Bone alignment is normal. No fracture or dislocation is seen. Joint spaces and soft tissues are normal. XR/XR shoulder RT min 2V IMPRESSION: No fracture or dislocation.
--- NOTE | ~2021-12-14 | XR_ITS ---
EXAMINATION: THE HUMERUS AND RIGHT SHOULDER X-RAY CLINICAL INFORMATION: Fall. Pain. COMPARISON: None TECHNIQUE: 3 views of the right shoulder and 2 views of the humerus FINDINGS: Right shoulder: Bone alignment is normal. No fracture or dislocation is seen. Glenohumeral joint is normal. There is mild arthritis at the acromioclavicular clavicular joint. Soft tissues are normal. Right humerus: Bone alignment is normal. No fracture or dislocation is seen. Joint spaces and soft tissues are normal. XR/XR humerus RT IMPRESSION: No fracture or dislocation.
[2021-12-14 11:58] VITALS: BP 139/85; PULSE 72; RESP 16; TEMP 36.1; O2SAT 98; BMI 17.2
--- NOTE | 2021-12-14 12:35 | ED.EXTPRO ---
HPI - Extremity Problem General Chief complaint: Extremity Injury, Upper Stated complaint: Fall/R shoulder pain Time Seen by Provider: 12/14/21 12:28 Source: patient Mode of arrival: ambulatory Limitations: no limitations History of Present Illness HPI Narrative: Patient comes to the emergency room complaining of right shoulder pain. Patient states that approximately 5 days ago, patient was walking, slipped and landed on her right shoulder. Patient states that the pain has gradually been getting worse. Today was the worst day because she slipped on her right shoulder. Patient states she cannot sleep on her left shoulder because she has a pacemaker and it hurts her if she lays on the left side. Patient denies numbness or tingling, patient states she did not hit her head or loss consciousness, denies being on blood thinners Related Data Home Medications Medication Instructions Recorded Confirmed albuterol sulfate 90 mcg/actuation 2 puff inhalation Q4-6H PRN 05/13/20 08/18/21 aerosol inhaler (ProAir HFA) Shortness Of Breath ascorbic acid (vitamin C) 250 mg 250 mg PO BID 05/13/20 08/18/21 tablet atorvastatin 40 mg tablet 40 mg PO BEDTIME 05/13/20 08/18/21 calcium carbonate 600 mg-vitamin 1 tab PO BID 05/13/20 08/18/21 D3 5 mcg (200 unit) tablet (Calcium 600 + D(3)) fluoxetine 20 mg capsule 20 mg PO DAILY 05/13/20 08/18/21 gabapentin 300 mg capsule 300 mg PO BID 05/13/20 08/18/21 mirtazapine 30 mg tablet 30 mg PO BEDTIME 05/13/20 08/18/21 ferrous gluconate 324 mg (38 mg 324 mg PO BID 08/04/20 08/18/21 iron) tablet fluticasone 250 mcg-salmeterol 50 1 puff inhalation BID 04/26/21 08/18/21 mcg/dose blistr powdr for inhalation (Advair Diskus) amlodipine 10 mg tablet 10 mg PO QPM 08/18/21 08/18/21 imipramine HCl 50 mg tablet 50 mg PO BEDTIME 08/18/21 08/18/21 Previous Rx's Medication Instructions Recorded pyridoxine (vitamin B6) 100 mg 100 mg PO DAILY 90 days #90 tabs 11/19/20 tablet dicyclomine 20 mg tablet 20 mg PO QID #120 tabs 12/16/20 docusate sodium 100 mg capsule 100 mg PO BID #60 caps 01/13/21 omeprazole 20 mg capsule,delayed 20 mg PO BID #60 caps 04/19/21 release carvedilol 25 mg tablet 37.5 mg PO BID 90 days #270 tabs 10/10/21 sacubitril 97 mg-valsartan 103 mg 1 tab PO BID 90 days #180 tabs 10/10/21 tablet (Entresto) tramadol 50 mg tablet 50 mg PO BID PRN pain #7 tabs 12/14/21 Allergies Allergy/AdvReac Type Severity Reaction Status Date / Time Iodinated Contrast Media Allergy Severe ANGIOEDEMA Verified 11/30/20 14:00 [CONTRAST,IV] Review of Systems Review of Systems: Constitutional : No Weight loss, No Fever, No Chills, No Night Sweats, No Fatigue, No Malaise ENT/Mouth : No Hearing loss, No Ear Pain, No Nasal Congestion, No Sinus Pain, No Hoarseness, No sore throat, No Rhinorrhea, No Swallowing Difficulty Eyes: No Eye Pain, No Swelling, No Redness, No Foreign Body, No Discharge, No Vision Changes Cardiovascular : No Chest Pain, No SOB, No Dyspnea on Exertion, No Orthopnea, No Edema, No Palpitations Respiratory : No Cough, No Sputum, No Wheezing, No Smoke Exposure, No Dyspnea Gastrointestinal : No Nausea, No Vomiting, No Diarrhea, No Constipation, No abdominal Pain, No Hematochezia, No Melena Genitourinary : no irregular bleeding, No Dysuria, No Urinary Frequency, No Hematuria, No Urinary Incontinence, No Urgency, No Flank Pain, No Urinary Flow Changes, No Hesitancy Musculoskeletal : Complaining of right shoulder and upper arm pain, No Myalgias, No Joint Swelling Skin : No Skin Lesions, No rash Neuro : No Weakness, No Numbness, No Paresthesias, No Loss of Consciousness, No Dizziness, No Headache Psych : No Anxiety/Panic, No Depression, No SI/HI/AH/VH, No Social Issues, Heme/Lymph: No Bruising, No Bleeding,No Lymphadenopathy Endocrine : No Polyuria, No Polydipsia, No Temperature Intolerance PMFSH Past Medical History Medical History CAD (coronary artery disease) Cardiomyopathy Chronic heart failure with reduced ejection fraction and diastolic dysfunction GERD (gastroesophageal reflux disease) History of asthma HTN (hypertension) Hx of sepsis Hyperlipidemia ICD (implantable cardioverter-defibrillator) in place Surgical History H/O hemorrhoidectomy Hx of colonoscopy Hx of cystoscopy Stented coronary artery Family History Family History Father Diabetes HTN (hypertension) Mother Diabetes HTN (hypertension) Sister Throat cancer Social History Social History Household Members: None Housing: Apartment Do you presently have visiting nurse or other home services: No Alcohol intake: never Patient Tobacco Use Status: Current everyday Tobacco user Cigarettes Per Day: 1 Years Smoked: 38 Smoked in Last 30 Days: Yes Use of substances other than those prescribed or required for medical reasons: Yes Substance Use Type: Marijuana Substance Use Frequency: Daily Last Used Substance: Days (ago) Any prior treatment program specific to substance use: No Advance Directives: Yes Advance Directives on File: Yes Advance Directives Date on File: 04/26/21 service: No Current occupational status: unemployed and disabled Physical Exam Vital Signs: Vital Signs: Last Vital Signs Temp 97.0 F 12/14/21 12:40 Pulse 77 12/14/21 12:40 Resp 18 12/14/21 12:40 BP 160/91 H 12/14/21 12:40 Pulse Ox 99 12/14/21 12:40 O2 Del Method 12/14/21 12:40 BMI result Body Mass Index 17.2 Const: Other: Appearance: Alert. Oriented X3. No acute distress. Eyes: Pupils equal, round and reactive to light. ENT: Pharynx normal. Neck: Normal inspection. Neck supple. No lymph nodes noted. No crepitus CVS: Normal heart rate and rhythm. Pulses normal. Normal S1 and S2 Respiratory: No respiratory distress. Breath sounds normal. No Wheezing. No rales Abdomen: Soft and nontender. No rigidity. No distention. Skin: Skin warm and dry. Normal skin color. Normal skin turgor. Extremities: No lower extremity edema. Patient is able to abduct the right shoulder/arm up to degrees. Any further it hurts quite a bit. Patient is able to hold up her arm by herself at 90 degrees, complaining of significant pain with external shoulder rotation Neuro: Oriented X 3. No motor deficit. No sensory deficit. Moving all extremities. No slurred speech. CN 2 through 12 grossly intact Psych: calm, cooperative, normal affect Course Course Course Narrative: I discussed with the patient that it is likely that she has a rotator cuff injury or tendinitis. Patient was provided with a sling. Patient will follow-up with her primary care physician and was given the phone number to call orthopedics. MDM - Extremity (Nontraumatic) Imaging Data Shoulder and humerus x-ray: Radiologist's impression: FINDINGS: Right shoulder: Bone alignment is normal. No fracture or dislocation is seen. Glenohumeral joint is normal. There is mild arthritis at the acromioclavicular clavicular joint. Soft tissues are normal. Right humerus: Bone alignment is normal. No fracture or dislocation is seen. Joint spaces and soft tissues are normal.? XR/XR humerus RT IMPRESSION: No fracture or dislocation.? Discharge Plan Discharge Clinical Impression: Injury of right rotator cuff Patient Disposition: Home, Self-Care Instructions: Rotator Cuff Injury (ED), Rotator Cuff Injury Exercises (DC) Additional Instructions: Please follow-up with your primary care physician tomorrow. If you have any worsening or new symptoms, please return to the emergency room or call 911 Prescriptions: New tramadol 50 mg tablet 50 mg PO BID PRN (Reason: pain) Qty: 7 0RF No Action pyridoxine (vitamin B6) 100 mg tablet 100 mg PO DAILY 90 Days Qty: 90 3RF dicyclomine 20 mg tablet 20 mg PO QID Qty: 120 2RF docusate sodium 100 mg capsule 100 mg PO BID Qty: 60 1RF omeprazole 20 mg capsule,delayed release(DR/EC) 20 mg PO BID Qty: 60 3RF Entresto 97-103 mg tablet 1 tab PO BID 90 Days Qty: 180 3RF carvedilol 25 mg tablet 37.5 mg PO BID 90 Days Qty: 270 3RF Rx Instructions: must administer with a meal/food atorvastatin 40 mg Tablet 40 mg PO BEDTIME calcium carbonate-vitamin D3 [Calcium 600 + D(3)] 600 mg(1,500mg) -200 unit Tablet 1 tab PO BID ascorbic acid (vitamin C) 250 mg Tablet 250 mg PO BID mirtazapine 30 mg Tablet 30 mg PO BEDTIME gabapentin 300 mg Capsule 300 mg PO BID albuterol sulfate [ProAir HFA] 90 mcg/actuation Hfa Aerosol Inhaler 2 puff INHALATION Q4-6H PRN (Reason: Shortness Of Breath) fluoxetine 20 mg Capsule 20 mg PO DAILY fluticasone propion-salmeterol [Advair Diskus] 250-50 mcg/dose blister with device 1 puff inhalation BID amlodipine 10 mg tablet 10 mg PO QPM imipramine HCl 50 mg tablet 50 mg PO BEDTIME ferrous gluconate 324 mg (38 mg iron) tablet 324 mg PO BID Referrals: Saloni Deras PA-C [Physician [employer]] - 2 days
[2021-12-14 12:40] VITALS: BP 160/91; PULSE 77; RESP 18; TEMP 36.1; O2SAT 99
[2021-12-14] MEDS: traMADoL HCL 50 MG TABLET PO (13:27)
== END 2021-12-14 14:41 | disposition home or self-care (01) ==
PROVIDERS: Emergency Provider Emergency Medicine; PCP Family Medicine
DX: S46.001A Unspecified injury of muscle(s) and tendon(s) of the rotator cuff of right shoulder, initial encounter (principal); W01.198A Fall on same level from slipping, tripping and stumbling with subsequent striking against other object, initial encounter; I10 Essential (primary) hypertension; Z95.0 Presence of cardiac pacemaker; Y93.01 Activity, walking, marching and hiking; Y92.9 Unspecified place or not applicable; Y99.9 Unspecified external cause status; Z79.02 Long term (current) use of antithrombotics/antiplatelets; Z79.899 Other long term (current) drug therapy
CPT/HCPCS: 73030; 73060; 99283; 99284

== ENCOUNTER 2022-01-09 19:55 | Emergency (ER) | payer OTHER, SELFPAY ==
[2022-01-09 20:09] VITALS: BP 159/99; BP 163/86; PULSE 108; PULSE 93; RESP 18; TEMP 38.2; O2SAT 98; O2SAT 99; BMI 15.5
--- NOTE | 2022-01-09 20:20 | ECG_ITS ---
Test Reason : CHEST PAIN Blood Pressure : / mmHG Vent. Rate : 088 BPM Atrial Rate : 088 BPM P-R Int : 140 ms QRS Dur : 092 ms QT Int : 436 ms P-R-T Axes : 065 056 059 degrees QTc Int : 527 ms Normal sinus rhythm Prolonged QT Abnormal ECG When compared with ECG of 25-APR-2021 22:56, No significant change was found Referred By: Zaire Willingham Electronically Signed By:SANIYA TYSON
--- NOTE | 2022-01-09 20:23 | ED_ITS ---
HPI - Chest Pain General Chief Complaint: Chest Pain Stated Complaint: cp Time Seen by Provider: 01/09/22 20:08 Source: patient Mode of arrival: ambulatory Limitations: no limitations History of Present Illness HPI narrative: Patient's history of coronary artery disease , cardiomyopathy CHF with reduced ejection fraction diastolic dysfunction status post ICD placed came as she feeling body aches tiredness since last night. One of her friend came to her home yesterday who was sick with the same symptoms denies any specific chest pain complaining of pain all over Related Data Home Medications Medication Instructions Recorded Confirmed albuterol sulfate 90 mcg/actuation 2 puff inhalation Q4-6H PRN 05/13/20 08/18/21 aerosol inhaler (ProAir HFA) Shortness Of Breath ascorbic acid (vitamin C) 250 mg 250 mg PO BID 05/13/20 08/18/21 tablet atorvastatin 40 mg tablet 40 mg PO BEDTIME 05/13/20 08/18/21 calcium carbonate 600 mg-vitamin 1 tab PO BID 05/13/20 08/18/21 D3 5 mcg (200 unit) tablet (Calcium 600 + D(3)) fluoxetine 20 mg capsule 20 mg PO DAILY 05/13/20 08/18/21 gabapentin 300 mg capsule 300 mg PO BID 05/13/20 08/18/21 mirtazapine 30 mg tablet 30 mg PO BEDTIME 05/13/20 08/18/21 ferrous gluconate 324 mg (38 mg 324 mg PO BID 08/04/20 08/18/21 iron) tablet fluticasone 250 mcg-salmeterol 50 1 puff inhalation BID 04/26/21 08/18/21 mcg/dose blistr powdr for inhalation (Advair Diskus) amlodipine 10 mg tablet 10 mg PO QPM 08/18/21 08/18/21 imipramine HCl 50 mg tablet 50 mg PO BEDTIME 08/18/21 08/18/21 Previous Rx's Medication Instructions Recorded pyridoxine (vitamin B6) 100 mg 100 mg PO DAILY 90 days #90 tabs 11/19/20 tablet dicyclomine 20 mg tablet 20 mg PO QID #120 tabs 12/16/20 docusate sodium 100 mg capsule 100 mg PO BID #60 caps 01/13/21 omeprazole 20 mg capsule,delayed 20 mg PO BID #60 caps 04/19/21 release carvedilol 25 mg tablet 37.5 mg PO BID 90 days #270 tabs 10/10/21 sacubitril 97 mg-valsartan 103 mg 1 tab PO BID 90 days #180 tabs 10/10/21 tablet (Entresto) tramadol 50 mg tablet 50 mg PO BID PRN pain #7 tabs 12/14/21 cefuroxime axetil 250 mg tablet 250 mg PO BID 7 days #14 tabs 01/10/22 Allergies Allergy/AdvReac Type Severity Reaction Status Date / Time Iodinated Contrast Media Allergy Severe ANGIOEDEMA Verified 11/30/20 14:00 [CONTRAST,IV] [facility] Past Medical History Medical History CAD (coronary artery disease) Cardiomyopathy Chronic heart failure with reduced ejection fraction and diastolic dysfunction GERD (gastroesophageal reflux disease) History of asthma HTN (hypertension) Hx of sepsis Hyperlipidemia ICD (implantable cardioverter-defibrillator) in place Surgical History H/O hemorrhoidectomy Hx of colonoscopy Hx of cystoscopy Stented coronary artery Family History Family History Father Diabetes HTN (hypertension) Mother Diabetes HTN (hypertension) Sister Throat cancer Social History Social History Household Members: None Housing: Apartment Do you presently have visiting nurse or other home services: No Alcohol intake: never Patient Tobacco Use Status: Current everyday Tobacco user Cigarettes Per Day: 1 Years Smoked: 38 Substance Use Type: Marijuana Advance Directives: Yes Advance Directives on File: Yes Advance Directives Date on File: 04/26/21 service: No Current occupational status: unemployed and disabled Physical Exam Vital Signs: Vital Signs: Last Vital Signs Temp 98.8 F 01/09/22 23:57 Pulse 94 01/09/22 23:57 Resp 14 01/09/22 23:57 BP 130/90 H 01/09/22 23:57 Pulse Ox 97 01/09/22 23:57 O2 Del Method 01/09/22 23:57 BMI result Body Mass Index 15.5 Appearance: Alert. Oriented X3. No acute distress. Eyes: PERRLA, No Nystagmus ENT: Pharynx normal. Oral Mucosa moist Neck: Normal inspection. Neck supple. CVS: Normal heart rate and rhythm. Pulses normal. Respiratory: No respiratory distress. Equal air entry bilateral, no wheezing/rales/rhonchi Abdomen: Soft and nontender. Bowel sounds are present, no mass palpable, no CVA tenderness Skin: Skin warm and dry. Normal skin color. Normal skin turgor. Extremities: No lower extremity edema. No calf tenderness Neuro: Oriented X 3. No motor deficit. No sensory deficit.No cerebellar signs , cranial nerves II-XII intact MDM - Chest Pain MDM Narrative Medical decision making narrative: patient comes likely viral so has slight UTI will discharge patient home on Ceftin , COVID is negative Lab Data Attestation: I reviewed the patient's lab results. Result diagrams: 01/09/22 20:27 01/09/22 20:27 Labs: Lab Results 01/09/22 01/09/22 01/09/22 Range/Units 20:27 20:27 20:27 WBC 8.5 (4.8-10.8) X10*3/uL RBC 3.55 L (4.20-5.50) X10*6/uL Hgb 11.2 L (12.0-16.0) g/dl Hct 33.7 L (37.0-47.0) % MCV 94.9 (80.0-98.0) fL MCH 31.5 (27.0-33.0) pg MCHC 33.2 (31.0-35.0) g/dl RDW 15.1 (11.0-16.0) % Plt Count 209 (160-400) X10*3/uL MPV 9.1 L (9.4-12.3) fL Immature Gran % (Auto) 0.4 (0.0-0.4) % Neut % (Auto) 85.1 H (45-73) % Lymph % (Auto) 3.1 L (20-40) % [place] % (Auto) 9.7 (2-11) % Eos % (Auto) 1.2 (0-4) % Baso % (Auto) 0.5 (0-2) % Lymph # (Auto) 0.3 L (1.2-4.9) X10*3/uL [place] # (Auto) 0.8 (0.1-1.2) X10*3/uL Eos # (Auto) 0.1 (0.0-0.4) X10*3/uL Baso # (Auto) 0.0 (0.0-0.2) X10*3/uL Abs Immat Gran (auto) 0.03 (0.00-0.03) X10*3/uL Absolute Neuts (auto) 7.2 (2.0-8.3) x10*3/uL Absolute Nucleated RBC 0.000 (0.0-0.012) X10*3/uL Nucleated RBC % (auto) 0.0 (0.0-0.2) /100WBC Sodium 137 (135-145) mmol/L Potassium 4.3 (3.3-5.1) mmol/L Chloride 107 (96-108) mmol/L Carbon Dioxide 20 L (22-29) mmol/L Anion Gap 14 (12-20) BUN 29 H (9-16) mg/dL Creatinine 2.49 H (0.5-1.4) mg/dL Estim Creat Clear Calc 14.2 Estimated GFR 19 Random Glucose 73 (60-115) mg/dL Calcium 8.1 L (8.4-10.2) mg/dL Total Bilirubin 0.8 (0.0-1.0) mg/dL AST 25 (5-31) U/L ALT 20 (0-31) U/L Alkaline Phosphatase 70 (39-117) U/L Troponin I High Sens (<3.5-17.0) ng/L Total Protein 6.6 (6.5-8.0) g/dL Albumin 3.8 (3.5-5.0) g/dL Urine Color Urine Appearance Urine pH (5.0-8.0) Ur Specific [place] (1.005-1.025) Urine Protein (NEG-TRACE) MG/DL Urine Glucose (UA) (NEG) MG/DL Urine Ketones (NEG) MG/DL Urine Blood (NEG) Urine Nitrite (NEG) Ur Leukocyte Esterase (NEG) Urine RBC (0) /HPF Urine WBC (0-4) /HPF Ur Squamous Epith Cells /LPF Urine Bacteria /LPF COVID-19 (RICK) Negative (Negative) COVID-19 Clin Com See Note 01/09/22 01/09/22 Range/Units 20:27 22:16 WBC (4.8-10.8) X10*3/uL RBC (4.20-5.50) X10*6/uL Hgb (12.0-16.0) g/dl Hct (37.0-47.0) % MCV (80.0-98.0) fL MCH (27.0-33.0) pg MCHC (31.0-35.0) g/dl RDW (11.0-16.0) % Plt Count (160-400) X10*3/uL MPV (9.4-12.3) fL Immature Gran % (Auto) (0.0-0.4) % Neut % (Auto) (45-73) % Lymph % (Auto) (20-40) % [place] % (Auto) (2-11) % Eos % (Auto) (0-4) % Baso % (Auto) (0-2) % Lymph # (Auto) (1.2-4.9) X10*3/uL [place] # (Auto) (0.1-1.2) X10*3/uL Eos # (Auto) (0.0-0.4) X10*3/uL Baso # (Auto) (0.0-0.2) X10*3/uL Abs Immat Gran (auto) (0.00-0.03) X10*3/uL Absolute Neuts (auto) (2.0-8.3) x10*3/uL Absolute Nucleated RBC (0.0-0.012) X10*3/uL Nucleated RBC % (auto) (0.0-0.2) /100WBC Sodium (135-145) mmol/L Potassium (3.3-5.1) mmol/L Chloride (96-108) mmol/L Carbon Dioxide (22-29) mmol/L Anion Gap (12-20) BUN (9-16) mg/dL Creatinine (0.5-1.4) mg/dL Estim Creat Clear Calc Estimated GFR Random Glucose (60-115) mg/dL Calcium (8.4-10.2) mg/dL Total Bilirubin (0.0-1.0) mg/dL AST (5-31) U/L ALT (0-31) U/L Alkaline Phosphatase (39-117) U/L Troponin I High Sens 11.5 (<3.5-17.0) ng/L Total Protein (6.5-8.0) g/dL Albumin (3.5-5.0) g/dL Urine Color YELLOW Urine Appearance CLEAR Urine pH 6.0 (5.0-8.0) Ur Specific [place] 1.010 (1.005-1.025) Urine Protein NEG (NEG-TRACE) MG/DL Urine Glucose (UA) NEG (NEG) MG/DL Urine Ketones 15 (NEG) MG/DL Urine Blood 1+ H (NEG) Urine Nitrite NEG (NEG) Ur Leukocyte Esterase 1+ H (NEG) Urine RBC 1-4 (0) /HPF Urine WBC 5-9 H (0-4) /HPF Ur Squamous Epith Cells 1+ /LPF Urine Bacteria 2+ /LPF COVID-19 (RICK) (Negative) COVID-19 Clin Com Discharge Plan Discharge Clinical Impression: UTI (urinary tract infection) Patient Disposition: Home, Self-Care Instructions: Urinary Tract Infection in Older Adults (ED) Additional Instructions: drink plenty of fluids take antibiotic as prescribed follow-up with PCP if not better Prescriptions: New cefuroxime axetil 250 mg tablet 250 mg PO BID 7 Days Qty: 14 0RF No Action pyridoxine (vitamin B6) 100 mg tablet 100 mg PO DAILY 90 Days Qty: 90 3RF dicyclomine 20 mg tablet 20 mg PO QID Qty: 120 2RF docusate sodium 100 mg capsule 100 mg PO BID Qty: 60 1RF omeprazole 20 mg capsule,delayed release(DR/EC) 20 mg PO BID Qty: 60 3RF Entresto 97-103 mg tablet 1 tab PO BID 90 Days Qty: 180 3RF carvedilol 25 mg tablet 37.5 mg PO BID 90 Days Qty: 270 3RF Rx Instructions: must administer with a meal/food atorvastatin 40 mg Tablet 40 mg PO BEDTIME calcium carbonate-vitamin D3 [Calcium 600 + D(3)] 600 mg(1,500mg) -200 unit Tablet 1 tab PO BID ascorbic acid (vitamin C) 250 mg Tablet 250 mg PO BID mirtazapine 30 mg Tablet 30 mg PO BEDTIME gabapentin 300 mg Capsule 300 mg PO BID albuterol sulfate [ProAir HFA] 90 mcg/actuation Hfa Aerosol Inhaler 2 puff INHALATION Q4-6H PRN (Reason: Shortness Of Breath) fluoxetine 20 mg Capsule 20 mg PO DAILY fluticasone propion-salmeterol [Advair Diskus] 250-50 mcg/dose blister with device 1 puff inhalation BID amlodipine 10 mg tablet 10 mg PO QPM imipramine HCl 50 mg tablet 50 mg PO BEDTIME tramadol 50 mg tablet 50 mg PO BID PRN (Reason: pain) Qty: 7 0RF ferrous gluconate 324 mg (38 mg iron) tablet 324 mg PO BID
[2022-01-09 20:34] LABS: MANUAL DIFF FLAG NO
[2022-01-09 20:36] LABS: Basophils Percent Auto 0.5 % (0-2); Eosinophils Absolute Auto 0.1 X10*3/uL (0.0-0.4); Eosinophils Percent Auto 1.2 % (0-4); Hematocrit 33.7 % (37.0-47.0); Hemoglobin 11.2 g/dl (12.0-16.0); Imm Gran Abs Auto 0.03 X10*3/uL (0.00-0.03); Imm Gran Pct Auto 0.4 % (0.0-0.4); Lymphocytes Absolute Auto 0.3 X10*3/uL (1.2-4.9); Lymphocytes Percent Auto 3.1 % (20-40); Mean Corpuscular HGB Conc 33.2 g/dl (31.0-35.0); Mean Corpuscular Hemoglobin 31.5 pg (27.0-33.0); Mean Corpuscular Volume 94.9 fL (80.0-98.0); Mean Platelet Volume 9.1 fL (9.4-12.3); Monocytes Absolute Auto 0.8 X10*3/uL (0.1-1.2); Monocytes Percent Auto 9.7 % (2-11); Neutrophils Absolute Auto 7.2 x10*3/uL (2.0-8.3); Neutrophils Percent Auto 85.1 % (45-73); Platelet Count 209 X10*3/uL (160-400); Red Blood Count 3.55 X10*6/uL (4.20-5.50); Red Cell Distribution Width 15.1 % (11.0-16.0); White Blood Count 8.5 X10*3/uL (4.8-10.8)
[2022-01-09] MEDS: 0.9 % Sodium Chloride 1,000 ML 999 ML IV (20:39)
[2022-01-09 20:49] LABS: COVID-19 Test Negative (Negative)
[2022-01-09 20:53] LABS: Alanine Aminotransferase 20 U/L (0-31); Albumin Level 3.8 g/dL (3.5-5.0); Alkaline Phosphatase 70 U/L (39-117); Anion Gap 14 (12-20); Aspartate Amino Transferase 25 U/L (5-31); Bilirubin Total 0.8 mg/dL (0.0-1.0); Blood Urea Nitrogen 29 mg/dL (9-16); Calcium 8.1 mg/dL (8.4-10.2); Carbon Dioxide 20 mmol/L (22-29); Chloride 107 mmol/L (96-108); Creatinine Clr Calc Pharmacy 14.2; Estimated Glomerular Filt Rate 19; Glucose Random 73 mg/dL (60-115); Potassium 4.3 mmol/L (3.3-5.1); Sodium 137 mmol/L (135-145); Total Protein 6.6 g/dL (6.5-8.0)
[2022-01-09 20:56] LABS: Troponin-I High Sensitivity 11.5 ng/L (<3.5-17.0)
[2022-01-09 22:06] VITALS: BP 143/85; PULSE 91; RESP 18; TEMP 37.2; O2SAT 97
[2022-01-09 22:27] LABS: Appearance Urine CLEAR; Color Urine YELLOW; Glucose Urine UA NEG (NEG); Leukocyte Esterase Urine 1+ (NEG); Nitrite Urine NEG (NEG); UACC Culture Trigger YES; Urine Blood 1+ (NEG); Urine Ketones 15 MG/DL (NEG); Urine Protein NEG (NEG-TRACE)
[2022-01-09 22:52] LABS: Bacteria Urine 2+ /LPF; Squamous Epithelial Cell Urine 1+ /LPF
[2022-01-09 23:57] VITALS: BP 130/90; PULSE 94; RESP 14; TEMP 37.1; O2SAT 97
[2022-01-10] MEDS: Acetaminophen 325 MG TABLET 650 MG PO (01:38)
== END 2022-01-10 05:51 | disposition home or self-care (01) ==
PROVIDERS: Emergency Provider Internal Medicine; PCP Family Medicine
DX: N39.0 Urinary tract infection, site not specified (principal); B96.20 Unspecified Escherichia coli [E. coli] as the cause of diseases classified elsewhere; Z20.822 Contact with and (suspected) exposure to COVID-19; F17.210 Nicotine dependence, cigarettes, uncomplicated
CPT/HCPCS: 36415; 80053; 81001; 84484; 85025; 87086; 87088; 87186; 87635; 93005; 96360; 96361; 99284; 99285

== ENCOUNTER 2022-01-12 14:53 | Outpatient (REF) | payer OTHER, SELFPAY ==
--- NOTE | ~2022-01-12 | XR_ITS ---
EXAMINATION: XR FOREARM, RIGHT CLINICAL INFORMATION: Pain and swelling COMPARISON: None TECHNIQUE: AP and lateral views of the right forearm were obtained. 3 views right hand FINDINGS: Right forearm: There is no visible acute fracture, dislocation or bony abnormality. The soft tissues are normal. Right hand: There is no visible acute fracture, dislocation or subluxation. No bony erosive changes. The soft tissues are normal. XR/XR hand wrist RT IMPRESSION: Unremarkable right forearm and right hand exam.
--- NOTE | ~2022-01-12 | XR_ITS ---
EXAMINATION: XR FOREARM, RIGHT CLINICAL INFORMATION: Pain and swelling COMPARISON: None TECHNIQUE: AP and lateral views of the right forearm were obtained. 3 views right hand FINDINGS: Right forearm: There is no visible acute fracture, dislocation or bony abnormality. The soft tissues are normal. Right hand: There is no visible acute fracture, dislocation or subluxation. No bony erosive changes. The soft tissues are normal. XR/XR forearm RT 2V IMPRESSION: Unremarkable right forearm and right hand exam.
== END 2022-01-12 14:54 | disposition home or self-care (01) ==
LOC: HO.XRAY 14:53
PROVIDERS: Absent Provider Family Medicine; PCP Family Medicine; Visit Provider Family Medicine
DX: M25.531 Pain in right wrist (principal); M79.601 Pain in right arm; R60.0 Localized edema; Z91.81 History of falling
CPT/HCPCS: 73090; 73110; 73130

== ENCOUNTER 2022-02-08 11:00 | Outpatient (REF) | payer OTHER, SELFPAY ==
--- NOTE | ~2022-02-08 | XR_ITS ---
EXAMINATION: XR SHOULDER, RIGHT CLINICAL INFORMATION: Right shoulder pain COMPARISON: X-ray the right humerus and right shoulder December 2021 TECHNIQUE: AP external rotation, Grashey, scapular Y, and axillary views of the right shoulder. FINDINGS: Mild osteoarthritis of acromioclavicular joint. Glenohumeral joint normal. Surrounding bone and soft tissues unremarkable. . XR/XR shoulder RT min 2V IMPRESSION: Mild osteoarthritis of the acromioclavicular joint unchanged
== END 2022-02-08 11:01 | disposition home or self-care (01) ==
LOC: HO.XRAY 11:00
PROVIDERS: Absent Provider Family Medicine; PCP Family Medicine; Visit Provider Emergency Medicine
DX: M25.511 Pain in right shoulder (principal)
CPT/HCPCS: 73030

== ENCOUNTER 2022-02-12 11:31 | Emergency (ER) | payer OTHER, SELFPAY ==
--- NOTE | ~2022-02-12 | XR_ITS ---
EXAMINATION: XR CHEST CLINICAL INFORMATION: Chest pain. COMPARISON: April 25, 2021. TECHNIQUE: Upright AP view of the chest was obtained. XR/XR chest 1V FINDINGS/IMPRESSION: Examination demonstrates diffuse bilateral interstitial prominence with probable Daniel B-lines and possible superimposed, predominantly perihilar groundglass and alveolar densities, new compared with April 25, 2021. Differential diagnosis includes, but is not limited to, pulmonary edema; superimposed pneumonia cannot be confirmed or excluded. No effusion or pneumothorax identified. Heart size poorly evaluated. Tip of a subtle including pulse generator device lead projects over the right ventricle. Mediastinum, diaphragm, bones and soft tissues appear unremarkable.
--- NOTE | 2022-02-12 11:35 | ECG_ITS ---
Test Reason : CP Blood Pressure : / mmHG Vent. Rate : 091 BPM Atrial Rate : 091 BPM P-R Int : 132 ms QRS Dur : 084 ms QT Int : 428 ms P-R-T Axes : 054 057 060 degrees QTc Int : 526 ms Normal sinus rhythm Nonspecific ST and T wave abnormality Prolonged QT Abnormal ECG When compared with ECG of 09-JAN-2022 20:54, Non-specific change in ST segment in Anterior leads Inverted T waves have replaced nonspecific T wave abnormality in Anterior leads Referred By: Generic ED Physician Electronically Signed By:SOLITARIO CUEVAS
[2022-02-12 11:43] VITALS: BP 144/119; PULSE 82; RESP 24; TEMP 36.7; O2SAT 87; BMI 15.5
[2022-02-12 11:57] LABS: MANUAL DIFF FLAG NO
[2022-02-12 12:00] LABS: Basophils Percent Auto 0.3 % (0-2); Eosinophils Percent Auto 0.2 % (0-4); Hematocrit 29.6 % (37.0-47.0); Hemoglobin 10.4 g/dl (12.0-16.0); Imm Gran Abs Auto 0.06 X10*3/uL (0.00-0.03); Imm Gran Pct Auto 0.5 % (0.0-0.4); Lymphocytes Absolute Auto 0.6 X10*3/uL (1.2-4.9); Lymphocytes Percent Auto 5.1 % (20-40); Mean Corpuscular HGB Conc 35.1 g/dl (31.0-35.0); Mean Corpuscular Hemoglobin 31.8 pg (27.0-33.0); Mean Corpuscular Volume 90.5 fL (80.0-98.0); Monocytes Absolute Auto 0.7 X10*3/uL (0.1-1.2); Monocytes Percent Auto 6.3 % (2-11); Neutrophils Absolute Auto 10.2 x10*3/uL (2.0-8.3); Neutrophils Percent Auto 87.6 % (45-73); Platelet Count 267 X10*3/uL (160-400); Red Blood Count 3.27 X10*6/uL (4.20-5.50); Red Cell Distribution Width 14.3 % (11.0-16.0); White Blood Count 11.7 X10*3/uL (4.8-10.8)
[2022-02-12 12:16] LABS: COVID-19 Test Negative (Negative)
[2022-02-12 12:28] LABS: Anion Gap 17 (12-20); Blood Urea Nitrogen 38 mg/dL (9-16); Calcium 7.6 mg/dL (8.4-10.2); Carbon Dioxide 17 mmol/L (22-29); Chloride 108 mmol/L (96-108); Creatinine Clr Calc Pharmacy 11.6; Estimated Glomerular Filt Rate 14; Glucose Random 130 mg/dL (60-115); Potassium 4.2 mmol/L (3.3-5.1); Sodium 138 mmol/L (135-145)
[2022-02-12 12:30] LABS: Troponin-I High Sensitivity 19.1 ng/L (<3.5-17.0)
[2022-02-12 14:05] LABS: Alanine Aminotransferase 20 U/L (0-31); Albumin Level 2.9 g/dL (3.5-5.0); Alkaline Phosphatase 70 U/L (39-117); Aspartate Amino Transferase 35 U/L (5-31); Bilirubin Direct 0.3 mg/dL (0.0-0.5); Bilirubin Total 0.6 mg/dL (0.0-1.0); Total Protein 5.8 g/dL (6.5-8.0)
[2022-02-12 14:11] LABS: B Type Natriuretic Peptide 663 pg/mL (<100)
[2022-02-12 15:55] VITALS: BP 180/97; PULSE 80; O2SAT 93
== END 2022-02-12 17:00 | disposition left against medical advice (07) ==
PROVIDERS: Nurse Practitioner Family; Emergency Provider Emergency Medicine; PCP Family Medicine
DX: R07.89 Other chest pain (principal); R06.02 Shortness of breath; Z79.899 Other long term (current) drug therapy
CPT/HCPCS: 36415; 71045; 80048; 80076; 83880; 84484; 85025; 87635; 93005; 99283

== ENCOUNTER 2022-10-08 10:59 | Emergency (ER) | payer OTHER, SELFPAY ==
--- NOTE | ~2022-10-08 | XR_ITS ---
EXAMINATION: XR LUMBAR SPINE XR PELVIS CLINICAL INFORMATION: Lower back pain and left-sided pelvic pain after fall 5 days ago. COMPARISON: CT of abdomen and pelvis from 05/12/2020 TECHNIQUE: Lumbar spine, 3 views Pelvis, AP view FINDINGS: Lumbar spine: Lumbar vertebra have well preserved height and alignment. No compression fractures. Hemangioma of T12 vertebral body. No suspicious osseous lesion. There are vertebral osteophytes of the degenerated lumbar spine. Degenerative disc space narrowing is mild at L4-5 and moderate L5-S1. The hypertrophied left L5 transverse process articulates with the sacrum. There is atherosclerotic calcification of the abdominal aorta and iliac arteries. Pelvis: The osseous pelvic ring is intact. Alignment is normal at the hips, pubic symphysis and sacroiliac joints. No radiographic evidence of sacral fracture. Also, no fracture or malalignment at either hip. XR/XR lumbar spine 2-3V IMPRESSION: No acute abnormalities in the lumbosacral spine or pelvis. Discovertebral degenerative change is mild at L4-5 and moderate at L5-S1.
--- NOTE | ~2022-10-08 | XR_ITS ---
EXAMINATION: XR LUMBAR SPINE XR PELVIS CLINICAL INFORMATION: Lower back pain and left-sided pelvic pain after fall 5 days ago. COMPARISON: CT of abdomen and pelvis from 05/12/2020 TECHNIQUE: Lumbar spine, 3 views Pelvis, AP view FINDINGS: Lumbar spine: Lumbar vertebra have well preserved height and alignment. No compression fractures. Hemangioma of T12 vertebral body. No suspicious osseous lesion. There are vertebral osteophytes of the degenerated lumbar spine. Degenerative disc space narrowing is mild at L4-5 and moderate L5-S1. The hypertrophied left L5 transverse process articulates with the sacrum. There is atherosclerotic calcification of the abdominal aorta and iliac arteries. Pelvis: The osseous pelvic ring is intact. Alignment is normal at the hips, pubic symphysis and sacroiliac joints. No radiographic evidence of sacral fracture. Also, no fracture or malalignment at either hip. XR/XR pelvis 1-2V IMPRESSION: No acute abnormalities in the lumbosacral spine or pelvis. Discovertebral degenerative change is mild at L4-5 and moderate at L5-S1.
--- NOTE | 2022-10-08 11:07 | ED_ITS ---
HPI - Back Pain/Injury General Chief Complaint: Back Pain/Injury Stated Complaint: L SCIATIC PAIN PER EMS Time Seen by Provider: 10/08/22 10:59 Source: patient and EMS Mode of arrival: EMS Limitations: no limitations History of Present Illness HPI Narrative: This is a 59-year-old female history of ICD in place, coronary artery disease, irritable bowel syndrome, cardiomyopathy, SVT presenting to the emergency [facility] with complaints of left lower back pain status post fall last Sunday, patient reports she was walking, tripped on her own feet, landed on her left hip/back region, since then has been having pain that radiates from her left back region to just above the the left knee. Patient reports pain is severe, 10/10 worse with movement better at rest. Denies saddle paresthesias, numbness, tingling, weakness, urinary/bowel incontinence or retention, fevers, chills, history of IV drug abuse or malignancy, chest pain, shortness of breath, nausea, vomiting. Related Data Home Medications Medication Instructions Recorded Confirmed albuterol sulfate 90 mcg/actuation 2 puff inhalation Q4-6H PRN 05/13/20 08/18/21 aerosol inhaler (ProAir HFA) Shortness Of Breath ascorbic acid (vitamin C) 250 mg 250 mg PO BID 05/13/20 08/18/21 tablet atorvastatin 40 mg tablet 40 mg PO BEDTIME 05/13/20 08/18/21 calcium carbonate 600 mg-vitamin 1 tab PO BID 05/13/20 08/18/21 D3 5 mcg (200 unit) tablet (Calcium 600 + D(3)) fluoxetine 20 mg capsule 20 mg PO DAILY 05/13/20 08/18/21 gabapentin 300 mg capsule 300 mg PO BID 05/13/20 08/18/21 mirtazapine 30 mg tablet 30 mg PO BEDTIME 05/13/20 08/18/21 ferrous gluconate 324 mg (38 mg 324 mg PO BID 08/04/20 08/18/21 iron) tablet fluticasone 250 mcg-salmeterol 50 1 puff inhalation BID 04/26/21 08/18/21 mcg/dose blistr powdr for inhalation (Advair Diskus) amlodipine 10 mg tablet 10 mg PO QPM 08/18/21 08/18/21 imipramine HCl 50 mg tablet 50 mg PO BEDTIME 08/18/21 08/18/21 Previous Rx's Medication Instructions Recorded pyridoxine (vitamin B6) 100 mg 100 mg PO DAILY 90 days #90 tabs 11/19/20 tablet dicyclomine 20 mg tablet 20 mg PO QID #120 tabs 12/16/20 docusate sodium 100 mg capsule 100 mg PO BID #60 caps 01/13/21 omeprazole 20 mg capsule,delayed 20 mg PO BID #60 caps 04/19/21 release carvedilol 25 mg tablet 37.5 mg PO BID 90 days #270 tabs 10/10/21 sacubitril 97 mg-valsartan 103 mg 1 tab PO BID 90 days #180 tabs 10/10/21 tablet (Entresto) tramadol 50 mg tablet 50 mg PO BID PRN pain #7 tabs 12/14/21 cefuroxime axetil 250 mg tablet 250 mg PO BID 7 days #14 tabs 01/10/22 lidocaine 5 % topical patch 1 patch topical DAILY PRN pain #15 10/08/22 ea morphine 15 mg immediate release 15 mg PO Q6H PRN pain 5 days #10 10/08/22 tablet tabs prednisone 20 mg tablet 40 mg PO DAILY 5 days #10 tabs 10/08/22 Allergies Allergy/AdvReac Type Severity Reaction Status Date / Time Iodinated Contrast Media Allergy Severe ANGIOEDEMA Verified 11/30/20 14:00 [CONTRAST,IV] Review of Systems Review of Systems: Constitutional : No Weight loss, No Fever, No Chills, ENT/Mouth : No Hearing loss, No Ear Pain, No Nasal Congestion, No Sinus Pain, No Hoarseness, No sore throat, No Rhinorrhea, No Swallowing Difficulty Cardiovascular : No Chest Pain, No SOB Respiratory : No Cough, No Dyspnea Gastrointestinal : No Nausea, No Vomiting, No Diarrhea, No abdominal Pain, No Hematochezia, No Melena Genitourinary : No Dysuria, No Urinary Frequency, No Hematuria, No Urinary Incontinence, Musculoskeletal : positive back pain Skin : No Skin Lesions, No rash Neuro : No Weakness, No Numbness, No Paresthesias, no loss of bowel or bladder incontinence, no saddle anesthesia Yes all other systems are reviewed and are negative [facility] Past Medical History Attestation statement: The following information was validated with the patient. Source: old records reviewed and nursing notes reviewed Medical History CAD (coronary artery disease) Cardiomyopathy Chronic heart failure with reduced ejection fraction and diastolic dysfunction GERD (gastroesophageal reflux disease) History of asthma HTN (hypertension) Hx of sepsis Hyperlipidemia ICD (implantable cardioverter-defibrillator) in place Surgical History H/O hemorrhoidectomy Hx of colonoscopy Hx of cystoscopy Stented coronary artery Family History Family History Father Diabetes HTN (hypertension) Mother Diabetes HTN (hypertension) Sister Throat cancer Social History Social History Household Members: None Housing: Apartment Do you presently have visiting nurse or other home services: No Alcohol intake: never Patient Tobacco Use Status: Current everyday Tobacco user Cigarettes Per Day: 1 Years Smoked: 38 Substance Use Type: Marijuana Advance Directives: Yes Advance Directives on File: Yes Advance Directives Date on File: 04/26/21 service: No Current occupational status: unemployed and disabled Physical Exam Vital Signs: Vital Signs: Last Vital Signs Temp 97.6 F 10/08/22 11:14 Pulse 74 10/08/22 11:14 Resp 16 10/08/22 11:14 BP 159/93 H 10/08/22 11:14 Pulse Ox 100 10/08/22 11:14 O2 Del Method Room Air 10/08/22 11:14 BMI result Body Mass Index 20.6 Vital signs stable Appearance: Alert.? Oriented X3.? No acute distress.? Head: Normocephalic, atraumatic, no step-offs or deformities Eyes: Pupils equal, round and reactive to light.? ENT: Pharynx normal.? Neck: Normal inspection.? Neck supple.? CVS: Normal heart rate and rhythm.? Pulses normal.? Respiratory: No respiratory distress.? Breath sounds normal.? Abdomen: Soft and nontender.? Skin: Skin warm and dry.? Normal skin color.? Normal skin turgor.? Extremities: No lower extremity edema.? No calf ttp. 5/5 strength to bilateral upper and lower extremities Back: No midline tenderness, no C-spine tenderness, full range of motion, no CVA tenderness bilaterally + patient has left-sided paraspinous tenderness in the lumbar region throughout with radiation into left buttocks. Neuro: Oriented X 3.? No motor deficit.? No sensory deficit. CN 2-12 intact . Ambulating with steady gait normal coordination. No saddle paresthesias. Course Reevaluation(s) Reevaluation #1: X-ray of pelvis with no acute abnormalities in the lumbosacral spine or pelvis. Disc go vertebral degenerative changes at L4-L5 and moderate at L5-S1. Patient feeling better after medications. Resting comfortably able to ambulate. Educated patient on diagnosis and treatment plan, answered all question, patient verbalizes understanding. At this time patient will be discharged home, a dvised to return with new or worsening symptoms. Educated on worrisome signs and symptoms and when to return. At this time I feel comfortable discharge home. Time: 12:28 Medications Administered Discontinued Medications Generic Name Dose Route Start Last Admin Trade Name Freq PRN Reason Stop Dose Admin Diazepam 2 mg 10/08/22 11:10 10/08/22 11:37 Diazepam 2 Mg Tablet PO 10/08/22 11:11 2 mg ONCE ONE Administration Lidocaine 1 patch 10/08/22 11:05 10/08/22 11:38 Lidocaine 4 % Patch Adh..Patch TRANSDERMA 10/08/22 11:06 1 patch ONCE ONE Administration Protocol Morphine Sulfate 15 mg 10/08/22 11:08 10/08/22 11:37 Morphine Sulfate Immed Release 15 Mg Tablet PO 10/08/22 11:09 15 mg ONCE ONE Administration Medical Decision Making Medical Decision Making [facility] Narrative: 1110 67-year-old female presents with left lumbar back pain that radiates into left lower extremity just above the left knee. Status post fall. To note, when patient fell she did not hit her head, no loss of consciousness, did not sustain traumatic injuries to chest, abdomen, neck. GCS of 15, NIH stroke scale 0 on arrival Physical exam significant for patient has left-sided paraspinous tenderness in the lumbar region throughout with radiation into left buttocks. Likely lumbar radiculopathy versus sciatica. No signs of cord compression, cauda equina, epidural abscess. Plan morphine, Lidoderm patch, cyclobenzaprine. Differential Diagnosis Differential Diagnoses: The differential diagnosis associated with the presentation includes Likely lumbar radiculopathy versus sciatica. No signs of cord compression, cauda equina, epidural abscess. Admission/Observation Consideration of admission/observation: Escalation of care including admission/observation considered Unlikely Independent Interpretation I performed an independent interpretation of an: Plain X-Ray Core Measures AMI core measures followed: Yes Measure exclusions: not indicated Discharge Plan Discharge Clinical Impression: Left lumbar radiculopathy, Fall Patient Disposition: Home, Self-Care Instructions: Acute Low Back Pain (ED), Back Pain (ED), Fall Prevention (ED) Additional Instructions: Take your medications as prescribed. If you were prescribed antibiotics today, it is important that you take your medication to their entirety, do not skip any doses, do not finish them early. Follow-up with your primary care provider this week. Return to the emergency department with new or worsening symptoms. Such as fevers, chills, chest pain, shortness of breath, nausea, vomiting, dizziness, headache, vision changes, lethargy In case of emergency call 911 A narcotic has been sent to your pharmacy please take this as prescribed. Do not take more than the prescribed dose. Narcotic medications can cause addiction. Please do not mix them with alcohol. Do not take them while driving or operating machinery. Do not take them with any other narcotics. Do not share them with friends or family. They can cause constipation. Take them only for severe pain. Apply Lidoderm patch to the affected area. XR/XR lumbar spine 2-3V IMPRESSION: No acute abnormalities in the lumbosacral spine or pelvis. Discovertebral degenerative change is mild at L4-5 and moderate at L5-S1.? Norphlet zabrina medicamentos seg?n lo prescrito. Si le recetaron antibi?vanessa naranjo, es importante que tome koch medicamento en koch totalidad, no se salte ninguna dosis, no los termine antes de tiempo. Seguimiento con koch proveedor de atenci?n primaria esta semana. Regrese al departamento de emergencias con s?ntomas nuevos o que empeoran. Amanda fiebre, escalofr?os, dolor de pecho, dificultad para respirar, n?useas, v?mitos, mareos, dolor de jd, cambios en la visi?n, letargo En ger de emergencia llama al 911 Se jolly enviado un narc?arlene a koch farmacia, t?zhang seg?n lo prescrito. No tome m?s de la dosis prescrita. Los medicamentos narc?ticos pueden causar adicci?n. Por favor, no los mezcle con alcohol. No los tome mientras conduce u opera maquinaria. No los tome con mickey?n otro narc?arlene. No los comparta con amigos o familiares. Pueden causar estre?imiento. T?melos s?lo para el dolor milad. Aplique el parche Lidoderm en el ?luiz afectada. Prescriptions: New prednisone 20 mg tablet 40 mg PO DAILY 5 Days Qty: 10 0RF lidocaine 5 % adhesive patch,medicated 1 patch topical DAILY PRN (Reason: pain) Qty: 15 0RF Rx Instructions: leave on most painful area for up to 12 hrs morphine 15 mg tablet 15 mg PO Q6H PRN (Reason: pain) 5 Days Qty: 10 0RF Rx Instructions: Partial Fill upon patient request. No Action pyridoxine (vitamin B6) 100 mg tablet 100 mg PO DAILY 90 Days Qty: 90 3RF dicyclomine 20 mg tablet 20 mg PO QID Qty: 120 2RF docusate sodium 100 mg capsule 100 mg PO BID Qty: 60 1RF omeprazole 20 mg capsule,delayed release(DR/EC) 20 mg PO BID Qty: 60 3RF Entresto 97-103 mg tablet 1 tab PO BID 90 Days Qty: 180 3RF carvedilol 25 mg tablet 37.5 mg PO BID 90 Days Qty: 270 3RF Rx Instructions: must administer with a meal/food atorvastatin 40 mg Tablet 40 mg PO BEDTIME calcium carbonate-vitamin D3 [Calcium 600 + D(3)] 600 mg(1,500mg) -200 unit Tablet 1 tab PO BID ascorbic acid (vitamin C) 250 mg Tablet 250 mg PO BID mirtazapine 30 mg Tablet 30 mg PO BEDTIME gabapentin 300 mg Capsule 300 mg PO BID albuterol sulfate [ProAir HFA] 90 mcg/actuation Hfa Aerosol Inhaler 2 puff INHALATION Q4-6H PRN (Reason: Shortness Of Breath) fluoxetine 20 mg Capsule 20 mg PO DAILY fluticasone propion-salmeterol [Advair Diskus] 250-50 mcg/dose blister with device 1 puff inhalation BID amlodipine 10 mg tablet 10 mg PO QPM imipramine HCl 50 mg tablet 50 mg PO BEDTIME tramadol 50 mg tablet 50 mg PO BID PRN (Reason: pain) Qty: 7 0RF cefuroxime axetil 250 mg tablet 250 mg PO BID 7 Days Qty: 14 0RF ferrous gluconate 324 mg (38 mg iron) tablet 324 mg PO BID Referrals: [facility] [Provider Group] - 2 days Kianna Nunez MD [Primary Care Provider] - 2 days Stand Alone Forms: Work/School Release
[2022-10-08 11:14] VITALS: BP 147/91; BP 159/93; PULSE 74; PULSE 80; RESP 16; TEMP 36.4; O2SAT 100; O2SAT 99; BMI 20.6
[2022-10-08] MEDS: Morphine Sulfate Immed Release 15 MG TABLET PO (11:37)
[2022-10-08] MEDS: diazePAM 2 MG TABLET PO (11:37)
[2022-10-08] MEDS: Lidocaine 4 % Patch ADH..PATCH 1 PATCH TRANSDERMA (11:38)
== END 2022-10-08 13:19 | disposition home or self-care (01) ==
PROVIDERS: Emergency Provider Emergency Medicine; PCP Family Medicine
DX: M54.16 Radiculopathy, lumbar region (principal); R10.2 Pelvic and perineal pain; M54.50 Low back pain, unspecified; F17.210 Nicotine dependence, cigarettes, uncomplicated; Z71.6 Tobacco abuse counseling; Z79.899 Other long term (current) drug therapy
CPT/HCPCS: 72100; 72170; 96374; 99283; 99284

== ENCOUNTER → 2022-10-12 09:10 | Outpatient (BNVA) | payer OTHER, SELFPAY | PROVIDERS: PCP Family Medicine; Referring Provider Family Medicine; Visit Provider Internal Medicine Cardiovascular Disease | DX: I42.9 Cardiomyopathy, unspecified (principal); I25.10 Atherosclerotic heart disease of native coronary artery without angina pectoris; I11.0 Hypertensive heart disease with heart failure; I50.22 Chronic systolic (congestive) heart failure; Z95.5 Presence of coronary angioplasty implant and graft; Z95.810 Presence of automatic (implantable) cardiac defibrillator | CPT/HCPCS: 93005; 99212 ==

== ENCOUNTER → 2022-12-26 23:59 | Outpatient (BNV) | payer OTHER, SELFPAY ==
--- NOTE | 2023-01-03 14:57 | MHC.OFFVIS ---
Intake Intake Visit Reasons: Remote ICD Check- [facility] Allergies Iodinated Contrast Media [CONTRAST,IV] Allergy (Severe, Verified 10/12/22 09:24) ANGIOEDEMA PFSH Medical History CAD (coronary artery disease) Cardiomyopathy Chronic heart failure with reduced ejection fraction and diastolic dysfunction GERD (gastroesophageal reflux disease) History of asthma HTN (hypertension) Hx of sepsis Hyperlipidemia ICD (implantable cardioverter-defibrillator) in place Surgical History H/O hemorrhoidectomy Hx of colonoscopy Hx of cystoscopy Stented coronary artery Family History Father Diabetes HTN (hypertension) Mother Diabetes HTN (hypertension) Sister Throat cancer Social History Household Members: None Housing: Apartment Do you presently have visiting nurse or other home services: No Alcohol intake: never Patient Tobacco Use Status: Current everyday Tobacco user Cigarettes Per Day: 1 Years Smoked: 38 Substance Use Type: Marijuana Advance Directives Date on File: 04/26/21 service: No Current occupational status: unemployed and disabled Office Procedures Cardiac Device Check Cardiac Device Check Details: Remote ICD report generated 12/26/2022. ICD function is adequate [id number] Cardiac Interrogation, implant defibrillator w/interim Procedure code (CPT) selection complete Coding Level of Care Code Procedure Only Diagnoses CPT Codes Cardiac Device Check - Cardiac Device 13: [id number] Cardiac Interrogation, implant defibrillator w/interim ([id number])
== END ==
PROVIDERS: PCP Family Medicine; Visit Provider Internal Medicine Cardiovascular Disease
DX: I42.9 Cardiomyopathy, unspecified (principal); Z95.810 Presence of automatic (implantable) cardiac defibrillator
CPT/HCPCS: 93295

== ENCOUNTER 2023-01-05 13:46 | Outpatient (REF) | payer OTHER, SELFPAY | END 2023-01-05 13:47 | disposition home or self-care (01) | LOC: HO.CHCLNP 13:46 | PROVIDERS: Visit Provider Family Medicine | DX: R30.0 Dysuria (principal) | CPT/HCPCS: 87086; 87088; 87186 ==

== ENCOUNTER → 2023-03-27 23:59 | Outpatient (BNV) | payer OTHER, SELFPAY ==
--- NOTE | 2023-03-27 15:16 | MHC.OFFVIS ---
Intake Intake Visit Reasons: Remote ICD Check- [facility] Allergies Iodinated Contrast Media [CONTRAST,IV] Allergy (Severe, Verified 10/12/22 09:24) ANGIOEDEMA PFSH Medical History CAD (coronary artery disease) Cardiomyopathy Chronic heart failure with reduced ejection fraction and diastolic dysfunction GERD (gastroesophageal reflux disease) History of asthma HTN (hypertension) Hx of sepsis Hyperlipidemia ICD (implantable cardioverter-defibrillator) in place Surgical History H/O hemorrhoidectomy Hx of colonoscopy Hx of cystoscopy Stented coronary artery Family History Father Diabetes HTN (hypertension) Mother Diabetes HTN (hypertension) Sister Throat cancer Social History Household Members: None Housing: Apartment Do you presently have visiting nurse or other home services: No Alcohol intake: never Patient Tobacco Use Status: Current everyday Tobacco user Cigarettes Per Day: 1 Years Smoked: 38 Substance Use Type: Marijuana Advance Directives Date on File: 04/26/21 service: No Current occupational status: unemployed and disabled Office Procedures Cardiac Device Check Cardiac Device Check Details: Remote ICD report generated 03/27/2023. ICD function is adequate [id number] Cardiac Interrogation, implant defibrillator w/interim Procedure code (CPT) selection complete Coding Level of Care Code Procedure Only CPT Codes Cardiac Device Check - Cardiac Device 13: [id number] Cardiac Interrogation, implant defibrillator w/interim ([id number])
== END ==
PROVIDERS: PCP Family Medicine; Visit Provider Internal Medicine Cardiovascular Disease
DX: I42.9 Cardiomyopathy, unspecified (principal); Z95.810 Presence of automatic (implantable) cardiac defibrillator
CPT/HCPCS: 93295

== ENCOUNTER → 2023-06-26 23:59 | Outpatient (BNV) | payer OTHER, SELFPAY ==
--- NOTE | 2023-06-26 11:36 | MHC.OFFVIS ---
Intake Intake Visit Reasons: Remote ICD Check- [facility] Allergies Iodinated Contrast Media [CONTRAST,IV] Allergy (Severe, Verified 10/12/22 09:24) ANGIOEDEMA PFSH Medical History CAD (coronary artery disease) Cardiomyopathy Chronic heart failure with reduced ejection fraction and diastolic dysfunction GERD (gastroesophageal reflux disease) History of asthma HTN (hypertension) Hx of sepsis Hyperlipidemia ICD (implantable cardioverter-defibrillator) in place Surgical History H/O hemorrhoidectomy Hx of colonoscopy Hx of cystoscopy Stented coronary artery Family History Father Diabetes HTN (hypertension) Mother Diabetes HTN (hypertension) Sister Throat cancer Social History Household Members: None Housing: Apartment Do you presently have visiting nurse or other home services: No Alcohol intake: never Comment: sleeping Patient Tobacco Use Status: Current everyday Tobacco user Cigarettes Per Day: 1 Years Smoked: 38 Substance Use Type: Marijuana Advance Directives Date on File: 04/26/21 service: No Current occupational status: unemployed and disabled Office Procedures Cardiac Device Check Cardiac Device Check Details: Remote ICD report generated 06/26/2023. ICD function is adequate. [id number] Cardiac Interrogation, implant defibrillator w/interim Procedure code (CPT) selection complete Assessment & Plan Assessment & Plan (1) ICD (implantable cardioverter-defibrillator) in place: Code(s): Z95.810 - Presence of automatic (implantable) cardiac defibrillator Plan: See above Coding Level of Care Code Procedure Only Diagnoses ICD (implantable cardioverter-defibrillator) in place Z95.810 CPT Codes Cardiac Device Check - Cardiac Device 13: [id number] Cardiac Interrogation, implant defibrillator w/interim ([id number])
== END ==
PROVIDERS: PCP Family Medicine; Visit Provider Internal Medicine Cardiovascular Disease
DX: I42.9 Cardiomyopathy, unspecified (principal); Z95.810 Presence of automatic (implantable) cardiac defibrillator
CPT/HCPCS: 93295

== ENCOUNTER 2023-08-22 13:59 | Outpatient (REF) | payer OTHER, SELFPAY ==
[2023-08-23 17:03] LABS: C. trachomatis RNA TMA NOT DETECTED (NOT DETECTED); N. gonorrhoeae RNA TMA NOT DETECTED (NOT DETECTED)
== END 2023-08-22 14:00 | disposition home or self-care (01) ==
LOC: HO.CHCLNP 13:59
PROVIDERS: Visit Provider Family Medicine
DX: N89.8 Other specified noninflammatory disorders of vagina (principal)
CPT/HCPCS: 36415; 81513; 87491; 87591

== ENCOUNTER 2023-08-31 09:21 | Outpatient (AMB) | payer OTHER, SELFPAY ==
[2023-08-31 09:41] VITALS: BP 142/84; PULSE 80; BMI 17.0
--- NOTE | 2023-08-31 09:41 | MHC.OFFVIS ---
Intake Vital Signs 08/31/23 09:41 Height 5 ft 4 in Weight 98 lb 12.273 oz BMI 17.0 BP 142/84 H Blood Pressure Location Lt brachial Position Sitting Pulse 80 Intake Visit Reasons: overdue followup w/st jesse pacer check Intake Note: overdue follow up w/ device check and EKG Credit Product Analyst Required: Yes Credit Product Analyst Language: Mechanical Project Engineer Name: Rizwan [id number] Accompanied by: Self / Same As Patient Allergies Iodinated Contrast Media [CONTRAST,IV] Allergy (Severe, Verified 08/31/23 09:42) ANGIOEDEMA Medication List - Last Reconciled 08/31/23 by Kleber Liu MD albuterol sulfate 90 mcg/actuation (ProAir HFA) 2 puffs inhalation Q4-6H PRN ascorbic acid (vitamin C) 250 mg PO BID atorvastatin 40 mg PO BEDTIME calcium carbonate-vitamin D3 600 mg-5 mcg (200 unit) (Calcium 600 + D(3)) 1 tab PO BID carvedilol 37.5 mg (1.5 x 25 mg) PO BID 90 days docusate sodium 100 mg PO BID ferrous gluconate 324 mg PO BID fluoxetine 20 mg PO DAILY fluticasone propion-salmeterol 250-50 mcg/dose (Advair Diskus) 1 puff inhalation BID hydralazine 10 mg PO TID isosorbide mononitrate ER 30 mg PO QAM mirtazapine 30 mg PO BEDTIME morphine 15 mg PO Q6H PRN 5 days pantoprazole 40 mg PO DAILY prednisone 40 mg (2 x 20 mg) PO DAILY 5 days pyridoxine (vitamin B6) 100 mg PO DAILY 90 days torsemide 40 mg PO QAM HPI HPI Comments History of Present Illness Details Georgiana comes for follow-up. History obtained with help of a certified diabetes territory manager over the telephone. Patient says she walks a lot and has no cardiac symptoms. Takes all her medications. Although notice that she has advancing renal dysfunction. On further asking her whether she sees any poultry packer, she denied. She has no heart failure symptoms. Denies any symptoms of orthopnea, PND, leg edema. Denies any exertional chest pain. Sporadic smoking. Denies any prolonged palpitation irregular heartbeat. No lightheadedness, syncope, ICD discharge. Takes all her medications. Blood pressure is well optimized. [facility] Medical History Hx of sepsis History of asthma Hyperlipidemia HTN (hypertension) Cardiomyopathy ICD (implantable cardioverter-defibrillator) in place CAD (coronary artery disease) Chronic heart failure with reduced ejection fraction and diastolic dysfunction GERD (gastroesophageal reflux disease) Surgical History Hx of cystoscopy H/O hemorrhoidectomy Stented coronary artery Hx of colonoscopy Family History Father Diabetes HTN (hypertension) Mother Diabetes HTN (hypertension) Sister Throat cancer Social History Household Members: None Housing: Apartment Do you presently have visiting nurse or other home services: No Alcohol intake: never Comment: sleeping Patient Tobacco Use Status: Current everyday Tobacco user Cigarettes Per Day: 1 Years Smoked: 38 Substance Use Type: Marijuana Advance Directives Date on File: 04/26/21 service: No Current occupational status: unemployed and disabled Review of Systems Const Denies weakness ENT Denies dizziness Card Denies chest pain, Denies chest pain with activity, Denies syncope, Denies rapid heart rate, Denies pedal edema, Denies edema, Denies leg edema, Denies lightheadedness, Denies palpitations, Denies dyspnea, Denies dyspnea on exertion and Denies orthopnea Resp Denies cough, Denies dyspnea and Denies dyspnea on exertion GI Denies hematochezia and Denies change in stool character Musc Denies abnormal gait, Denies muscle cramps, Denies muscle weakness, Denies numbness, Denies radiating pain into limb and Denies tingling Neuro Denies abnormal gait, Denies dizziness, Denies syncope, Denies numbness, Denies tingling and Denies weakness Endo Denies palpitations Physical Exam Vital Signs: Last Vital Signs Pulse 80 08/31/23 09:41 BP 142/84 H 08/31/23 09:41 BMI result Body Mass Index 17.0 Const General: cooperative, comfortable, no acute distress, alert and awake Nutritional Appearance: thin Orientation/consciousness: patient oriented x3 Limitations: no limitations Neck Neck: Yes trachea midline, Yes supple and Yes no JVD Resp Effort & Inspection: normal respiratory effort Auscultation: clear to auscultation bilaterally Cardio Palpation: abnormal PMI displaced PMI Rate: regular rate Rhythm: regular rhythm Heart sounds: S1 normal heart sound present and S2 normal heart sound present GI Auscultation: normal bowel sounds Skin General skin exam: no rashes or lesions noted Neuro General: patient oriented x3 and no focal motor deficits Extrem General: Yes no clubbing, cyanosis or edema Office Procedures Cardiac Device Check Cardiac Device Check Details: Single-chamber [facility] ICD in place. Programmed in VVI at 40 beats per minute. No arrhythmias noted. Ventricular pacing thresholds adequate and reprogrammed to provide adequate safety. Ventricular sensing was adequate. Pacing and shock lead impedance is stable. Battery life is at 1 year 4 months [id number] Cardiac Device Check, single lead implantable defibrillator Procedure code (CPT) selection complete EKG Details: EKG shows normal sinus rhythm with voltage [place] [address]-[id number], Complete Assessment & Plan Assessment & Plan (1) Heart failure with reduced ejection fraction: Code(s): I50.20 - Unspecified systolic (congestive) heart failure Plan: Prior history of heart failure with reduced ejection fraction with known prior severe LV systolic dysfunction, combination of nonischemic and ischemic cardiomyopathy. Clinically euvolemic and well compensated. She comes for follow-up after a long gap clinically but currently doing well. Continue current carvedilol as neurohormonal modulation. Also on hydralazine isosorbide combination for vasodilators therapy. She has not on renin angiotensin antagonist because of advanced renal dysfunction. She is on diuretic dose of torsemide 40 mg daily. Heart failure management was discussed. Daily weight monitoring avoidance of salt loading was discussed. Continue maintain activity level as tolerated. Advised to call me with worsening symptoms. Have taken the liberty to refer her to Nephrology because of advancing chronic kidney disease. She has not had any recent renal function testing advise follow-up in the near future. (2) CAD (coronary artery disease): Code(s): I25.10 - Atherosclerotic heart disease of [place] coronary artery without angina pectoris Plan: CAD with stenting to the LAD remotely. No current symptoms of angina at current workload. Advised to continue to maintain activity level as tolerated. Complete smoking cessation was advised. Blood pressure is currently well optimized. High-intensity statin therapy is recommended with goal LDL less than 70 mg/dL. Low-dose aspirin therapy is also advised. She requested refill for sublingual nitroglycerin which has been provided. (3) SVT (supraventricular tachycardia): Code(s): I47.1 - Supraventricular tachycardia Plan: SVT with no recurrence on ICD telemetry. Continue carvedilol therapy. Avoidance of stimulants was discussed. Management was discussed in details. (4) ICD (implantable cardioverter-defibrillator) in place: Code(s): Z95.810 - Presence of automatic (implantable) cardiac defibrillator Plan: ICD in place, working well. Will follow remotely for heart failure as well as device check. Follow up in the clinic in 6 months time. Follow-up echocardiogram near future. Follow up in the clinic in 6 months time, sooner p.r.n.. Thank you for allowing me to partake in her care Orders: Orders CA echo transthoracic complete Today I50.20 - Unspecified systolic (congestive) heart failure Referrals Nephrology Referral N18.4 - Chronic kidney disease, stage 4 (severe) Coding Level of Care Code Est Pt Level 4 (19864) Diagnoses Heart failure with reduced ejection fraction I50.20 CAD (coronary artery disease) I25.10 SVT (supraventricular tachycardia) I47.1 ICD (implantable cardioverter-defibrillator) in place Z95.810 CPT Codes Cardiac Device Check - Cardiac Device 4: [id number] Cardiac Device Check, single lead implantable defibrillator ([id number]) EKG - CPT: 24202-[id number], Complete ([id number])
== END 2023-08-31 10:10 | disposition home or self-care (01) ==
PROVIDERS: PCP Family Medicine; Visit Provider Internal Medicine Cardiovascular Disease
DX: I50.20 Unspecified systolic (congestive) heart failure (principal); I25.10 Atherosclerotic heart disease of native coronary artery without angina pectoris; I47.10 Supraventricular tachycardia, unspecified; Z95.810 Presence of automatic (implantable) cardiac defibrillator
CPT/HCPCS: 93010; 93282; 99214

== ENCOUNTER → 2023-08-31 09:21 | Outpatient (BNVA) | payer OTHER, SELFPAY | PROVIDERS: PCP Family Medicine; Visit Provider Internal Medicine Cardiovascular Disease | DX: I50.20 Unspecified systolic (congestive) heart failure (principal); I25.10 Atherosclerotic heart disease of native coronary artery without angina pectoris; I47.10 Supraventricular tachycardia, unspecified; N18.4 Chronic kidney disease, stage 4 (severe); Z45.018 Encounter for adjustment and management of other part of cardiac pacemaker | CPT/HCPCS: 93005; 99212 ==

== ENCOUNTER → 2023-09-25 23:59 | Outpatient (BNV) | payer OTHER, SELFPAY ==
--- NOTE | 2023-09-25 16:37 | MHC.OFFVIS ---
Intake Visit Reasons: Remote ICD check- [facility] Allergies Iodinated Contrast Media [CONTRAST,IV] Allergy (Severe, Verified 08/31/23 09:42) ANGIOEDEMA PFSH Medical History Hx of sepsis History of asthma Hyperlipidemia HTN (hypertension) Cardiomyopathy ICD (implantable cardioverter-defibrillator) in place CAD (coronary artery disease) Chronic heart failure with reduced ejection fraction and diastolic dysfunction GERD (gastroesophageal reflux disease) Surgical History Hx of cystoscopy H/O hemorrhoidectomy Stented coronary artery Hx of colonoscopy Family History Father Diabetes HTN (hypertension) Mother Diabetes HTN (hypertension) Sister Throat cancer Social History Household Members: None Housing: Apartment Do you presently have visiting nurse or other home services: No Alcohol intake: never Comment: sleeping Patient Tobacco Use Status: Current everyday Tobacco user Cigarettes Per Day: 1 Years Smoked: 38 Substance Use Type: Marijuana Advance Directives Date on File: 04/26/21 service: No Current occupational status: unemployed and disabled Office Procedures Cardiac Device Check Cardiac Device Check Details: Remote ICD report generated 09/25/2023. ICD function is adequate [id number] Cardiac Interrogation, implant defibrillator w/interim Procedure code (CPT) selection complete Assessment & Plan Assessment & Plan (1) ICD (implantable cardioverter-defibrillator) in place: Code(s): Z95.810 - Presence of automatic (implantable) cardiac defibrillator Category: Medical Plan: See above Coding Level of Care Code Procedure Only Diagnoses ICD (implantable cardioverter-defibrillator) in place Z95.810 CPT Codes Cardiac Device Check - Cardiac Device 13: [id number] Cardiac Interrogation, implant defibrillator w/interim ([id number])
== END ==
PROVIDERS: PCP Family Medicine; Visit Provider Internal Medicine Cardiovascular Disease
DX: Z45.02 Encounter for adjustment and management of automatic implantable cardiac defibrillator (principal)
CPT/HCPCS: 93295

== ENCOUNTER 2023-11-16 12:56 | Inpatient (IN) | payer OTHER, SELFPAY ==
[2023-11-16 13:21] VITALS: BP 166/98; PULSE 82; O2SAT 98
[2023-11-16 13:28] VITALS: BP 143/86; PULSE 92; RESP 22; TEMP 36.8; O2SAT 98; BMI 40.8
--- NOTE | 2023-11-16 13:29 | ED.PSYCH ---
HPI - Psych General Chief Complaint: Psychiatric Symptoms Stated Complaint: SI COMING FROM [facility] PER EMS Time Seen by Provider: 11/16/23 13:20 Source: patient, EMS, RN notes reviewed and parts interpreter Mode of arrival: EMS Limitations: language barrier History of Present Illness ED Provider: darin HPI Narrative: Patient is a 68-year-old Faroese speaking female with history of asthma, HTN, HLD, cardiomyopathy, ICD, CAD, HF with reduced EF, GERD presenting to the emergency department from intermediate with depression and vague suicidal ideation. She is tearful during assessment and states that she has been feeling sad, many recent stressors but unable to specify what. She states that she wants to lay down in front of a car and get run over. Denies any homicidal ideation, auditory or visual hallucinations. Denies any physical complaints at this time. MD complaint: suicidal ideation and feels depressed Associated symptoms: denies other symptoms If self harm: admits thoughts of self harm and has plan Related Data Home Medications ?Medication ?Instructions ?Recorded ?Confirmed albuterol sulfate 90 mcg/actuation 2 puff inhalation Q4-6H PRN 05/13/20 11/16/23 aerosol inhaler (ProAir HFA) Shortness Of Breath ascorbic acid (vitamin C) 250 mg 250 mg PO BID 05/13/20 11/16/23 tablet atorvastatin 40 mg tablet 40 mg PO BEDTIME 05/13/20 11/16/23 calcium carbonate 600 mg-vitamin 1 tab PO BID 05/13/20 11/16/23 D3 5 mcg (200 unit) tablet (Calcium 600 + D(3)) fluoxetine 20 mg capsule 20 mg PO DAILY 05/13/20 11/16/23 fluticasone 250 mcg-salmeterol 50 1 puff inhalation BID 04/26/21 11/16/23 mcg/dose blistr powdr for inhalation (Advair Diskus) hydralazine 10 mg tablet 10 mg PO TID 10/12/22 11/16/23 isosorbide mononitrate 30 mg 30 mg PO QAM 10/12/22 11/16/23 tablet,extended release 24 hr pantoprazole 40 mg tablet,delayed 40 mg PO DAILY 10/12/22 11/16/23 release torsemide 20 mg tablet 40 mg PO QAM 10/12/22 11/16/23 mirtazapine 30 mg tablet 30 mg PO BEDTIME 03/29/24 06/14/24 Previous Rx's ?Medication ?Instructions ?Recorded docusate sodium 100 mg capsule 100 mg PO BID #60 caps 01/13/21 carvedilol 25 mg tablet 37.5 mg (1.5 x 25 mg) PO BID 90 10/17/22 days #270 tabs Allergies Allergy/AdvReac Type Severity Reaction Status Date / Time Iodinated Contrast Media Allergy Severe ANGIOEDEMA Verified 11/16/23 13:30 [CONTRAST,IV] Review of Systems Review of Systems: As per HPI. Yes all other systems are reviewed and are negative Constitutional: Constitutional: Reports as per HPI [facility] Past Medical History Medical History Hx of sepsis History of asthma Hyperlipidemia HTN (hypertension) Cardiomyopathy ICD (implantable cardioverter-defibrillator) in place CAD (coronary artery disease) Chronic heart failure with reduced ejection fraction and diastolic dysfunction GERD (gastroesophageal reflux disease) Surgical History Hx of cystoscopy H/O hemorrhoidectomy Stented coronary artery Hx of colonoscopy Family History Family History Father Diabetes HTN (hypertension) Mother Diabetes HTN (hypertension) Sister Throat cancer Social History Social History Household Members: None Housing: Apartment Do you presently have visiting nurse or other home services: No Unable to assess alcohol history related to: Unable to respond Alcohol intake: never Comment: sleeping Patient Tobacco Use Status: Current everyday Tobacco user Cigarettes Per Day: 1 Years Smoked: 38 Use of substances other than those prescribed or required for medical reasons: Unable to respond Substance Use Type: Marijuana Advance Directives: No Advance Directives Information Provided: Yes Advance Directives Date on File: 04/26/21 Do you have a plan to hurt others: Vague service: No Current occupational status: unemployed and disabled Physical Exam Vital Signs: Vital Signs: Last Vital Signs Temp 97.7 F 11/17/23 05:52 Pulse 70 11/17/23 05:52 Resp 16 11/16/23 21:09 BP 106/81 11/17/23 05:52 Pulse Ox 97 11/17/23 05:52 O2 Del Method Room Air 11/17/23 05:52 BMI result Body Mass Index 40.8 Vital signs have been reviewed and appear to be correct. Blood pressure normal. Heart rate normal. Respiratory rate normal. Temperature normal. Oxygen saturation normal. Const: General: cooperative, healthy appearing and no acute distress Orientation/consciousness: oriented to person, oriented to place, oriented to time and patient oriented x3 Limitations: no limitations HEENT: Head: Yes normocephalic and Yes atraumatic Ears: external ears normal General nose exam: Normal external nose present Face and sinus: Yes face symmetric Mouth: oropharynx normal and moist mucous membranes Throat: Yes uvula midline Eyes: Pupils: Equal, round and reactive pupils present Neck: Neck: Yes normal visual inspection and Yes supple Resp: Effort & Inspection: normal respiratory effort and able to speak in complete sentences Auscultation: clear to auscultation bilaterally Cardio: Rate: regular rate Rhythm: regular rhythm Heart sounds: S1 normal heart sound present and S2 normal heart sound present GI: Palpation (GI): Soft to palpation and nontender Auscultation: normoactive bowel sounds : General: Yes no CVA tenderness Back/Spine/Pelvis: Back: no CVA tenderness Skin: General skin exam: elasticity normal and turgor normal Neuro: General: oriented to person, oriented to place, oriented to time, patient oriented x3, moves all extremities, no focal motor deficits and CN's II-XI intact bilaterally Cranial nerves: Yes Equal, round and reactive pupils present Cognition (Neuro): normal cognition Extrem: General: Yes full ROM, Yes no pedal edema and Yes no calf tenderness Psych: Appearance: grossly normal Mental Status: mental status grossly normal Affect: Sad affect present Attitude: cooperative Thought process: Normal thought process present Thought content: Suicidality present, no homicidality, no hallucinations and Depressive thoughts present Insight: Fair insight present (Psych) Judgement: Fair judgement present (Psych) Medications Administered Generic Name Dose Route Start Last Admin Trade Name Freq PRN Reason Stop Dose Admin Ascorbic Acid 250 mg 11/16/23 21:00 11/16/23 21:17 Ascorbic Acid 250 Mg Tablet PO 250 mg BID LIZBETH Administration Atorvastatin Calcium 40 mg 11/16/23 21:00 11/16/23 21:17 Atorvastatin Calcium 40 Mg Tablet PO 40 mg BEDTIME LIZBETH Administration Calcium Carbonate/Cholecalciferol 500 mg 11/16/23 21:00 11/16/23 21:17 Calcium + Vitamin D 250 Mg Tablet PO 500 mg BID LIZBETH Administration Carvedilol 37.5 mg 11/16/23 21:00 11/16/23 21:17 Carvedilol 12.5 Mg Tablet PO 37.5 mg BID LIZBETH Administration Protocol Cefuroxime Axetil 500 mg 11/16/23 15:15 11/16/23 17:57 Cefuroxime Axetil 500 Mg Tablet PO 11/22/23 09:01 500 mg DAILY LIZBETH Administration Docusate Sodium 100 mg 11/16/23 21:00 11/16/23 21:16 Docusate Sodium 100 Mg Capsule PO 100 mg BID LIZBETH Administration Fluticasone/Vilanterol 1 puff 11/16/23 21:00 11/16/23 21:24 Fluticasone/Vilanterol 100/25 Blst.W.Dev INHALE 1 puff DAILY LIZBETH Administration Hydralazine HCl 10 mg 11/16/23 21:00 11/16/23 21:24 Hydralazine Hcl 10 Mg Tablet PO 10 mg TID LIZBETH Administration Protocol Isosorbide Mononitrate 30 mg 11/16/23 20:45 11/16/23 21:17 Isosorbide Mononitrate 30 Mg Tab.Er.24h PO 30 mg DAILY LIZBETH Administration Protocol Mirtazapine 30 mg 11/16/23 21:00 11/16/23 21:16 Mirtazapine 30 Mg Tablet PO 30 mg BEDTIME LIZBETH Administration Torsemide 40 mg 11/16/23 20:45 11/16/23 21:16 Torsemide 20 Mg Tablet PO 40 mg DAILY LIZBETH Administration Protocol Medical Decision Making Medical Decision Making MDM Narrative: Patient is a 68-year-old Faroese speaking female with history of asthma, HTN, HLD, cardiomyopathy, ICD, CAD, HF with reduced EF, GERD presenting to the emergency department from intermediate with depression and vague suicidal ideation. On exam patient is awake, A+Ox3, VS WNL, afebrile, normal neurological exam without focal deficits, physical exam findings as above. Given reported symptoms and physical exam findings, initial differential includes depression, anxiety, suicidal ideation. Labs notable for chronically elevated BUN/Cr, otherwise unremarkable. Urine drug screen notable for cocaine and marijuana. Urinalysis notable for 3+ leukocytes, positive nitrates, trace blood, greater than 50 wbc's, will treat for UTI with 500mg cefuroxime daily x 7 days per renal dosing. Will clear patient at this time for care team evaluation and place on physician observation at 3:[address] Deni Ames's Note, physician observation continued: The patient is in the emergency department for proximally 19 hours, patient presented with depression and vague suicidal ideation. Urine drug screen was positive for THC and cocaine. There were no reported incidents on the patient by the overnight staff. Patient has been seen by the care team and I did review their preliminary note. Patient apparently visited her brother and reported that she did do drugs and she did not want to do drugs anymore. She did express SI with a plan to 3 over herself in front of the car with her dog. A disposition is not been determined yet on this patient. Therefore the patient will remain in the emergency department Behavioral Health Unit until disposition can be determined or until patient's symptoms improve over time. Differential Diagnosis Differential Diagnoses: The differential diagnosis associated with the presentation includes Admission/Observation Consideration of admission/observation: Escalation of care including admission/observation considered Consult Healthcare Provider Management of the patient was discussed with: Behavioral Health Provider Lab Data [facility] Lab Attestation statement: I reviewed the patient's lab results. As per [facility] 11/16/23 14:26 11/16/23 14:26 Labs: Lab Results 11/16/23 11/16/23 Range/Units 14:05 14:26 WBC 8.0 (4.8-10.8) X10*3/uL RBC 3.72 L (4.20-5.50) X10*6/uL Hgb 11.7 L (12.0-16.0) g/dl Hct 34.6 L (37.0-47.0) % MCV 93.0 (80.0-98.0) fL MCH 31.5 (27.0-33.0) pg MCHC 33.8 (31.0-35.0) g/dl RDW 15.4 (11.0-16.0) % Plt Count 212 (160-400) X10*3/uL MPV 9.5 (9.4-12.3) fL Absolute Nucleated RBC 0.000 (0.0-0.012) X10*3/uL Nucleated RBC % (auto) 0.0 (0.0-0.2) /100WBC Sodium 143 (135-145) mmol/L Potassium 3.7 (3.3-5.1) mmol/L Chloride 108 (96-108) mmol/L Carbon Dioxide 23 (22-29) mmol/L Anion Gap 16 (12-20) BUN 38 H (9-16) mg/dL Creatinine 3.01 H (0.5-1.4) mg/dL Estim Creat Clear Calc 18.9 Estimated GFR 15 Random Glucose 126 H (60-115) mg/dL Calcium 9.5 D (8.4-10.2) mg/dL Total Bilirubin 0.4 (0.0-1.0) mg/dL AST 21 (5-31) U/L ALT 14 (0-31) U/L Alkaline Phosphatase 71 (39-117) U/L Total Protein 7.5 (6.5-8.0) g/dL Albumin 4.2 (3.5-5.0) g/dL Urine Color Yellow Urine Appearance Cloudy Urine pH 6.5 (5.0-9.0) Ur Specific [place] 1.015 (1.005-1.025) Urine Protein 100 (2+) H (Neg-Trace) mg/dL Urine Glucose (UA) Negative (Negative) mg/dL Urine Ketones Negative (Negative) mg/dL Urine Blood Trace H (Negative) Urine Nitrite Positive H (Negative) Ur Leukocyte Esterase Large (3+) H (Negative) Urine RBC 6-10 H (0-2) /HPF Urine WBC >50 H (0-5) /HPF Ur Squamous Epith Cells 0-2 (0-2) /HPF Urine Bacteria 4+ (None Seen) Hyaline Casts 0-2 (0-2) /LPF Urine Opiates Screen Not Detected (Not Detect) Ur Buprenorphine Scrn Not Detected (Not Detect) ng/mL Ur Oxycodone Screen Not Detected (Not Detect) ng/mL Urine Methadone Screen Not Detected (Not Detect) ng/mL Urine Fentanyl Screen Not Detected (Not Detect) Ur Barbiturates Screen Not Detected (Not Detect) Ur Phencyclidine Scrn Not Detected (Not Detect) Ur Amphetamines Screen Not Detected (Not Detect) U Benzodiazepines Scrn Not Detected (Not Detect) Urine Cocaine Screen POSITIVE H (Not Detect) U Marijuana (THC) Screen POSITIVE H (Not Detect) Ethyl Alcohol < 10 mg/dL Independent Interpretation I performed an independent interpretation of an: EKG (sinus rhythm with short RI, rate 75bpm, LVH) External Record Review External record reviewed: Inpatient record, Office record and Outpatient record Prescription Management I considered prescription management with: Antibiotic Discharge Plan Discharge Clinical Impression: Urinary tract infection, Depression Patient Disposition: Still a Patient Instructions: Depression (DC), Urinary Tract Infection in Older Adults (ED) Additional Instructions: You were evaluated in the emergency department today for depression. Your urinalysis showed evidence of urinary tract infection and you are being treated with antibiotics, please take the full course as prescribed. Follow-up with your primary care provider. Return to the emergency department if you develop worsening pain, persistent vomiting, fever 100.4? F or greater, back or flank pain or any other concerning symptoms. Prescriptions: No Action docusate sodium 100 mg capsule 100 mg PO BID Qty: 60 1RF carvedilol 25 mg tablet 37.5 mg PO BID 90 Days Qty: 270 3RF Rx Instructions: must administer with a meal/food atorvastatin 40 mg Tablet 40 mg PO BEDTIME calcium carbonate-vitamin D3 [Calcium 600 + D(3)] 600 mg(1,500mg) -200 unit Tablet 1 tab PO BID ascorbic acid (vitamin C) 250 mg Tablet 250 mg PO BID albuterol sulfate [ProAir HFA] 90 mcg/actuation Hfa Aerosol Inhaler 2 puff INHALATION Q4-6H PRN (Reason: Shortness Of Breath) fluoxetine 20 mg Capsule 20 mg PO DAILY mirtazapine 30 mg tablet 30 mg PO BEDTIME fluticasone propion-salmeterol [Advair Diskus] 250-50 mcg/dose blister with device 1 puff inhalation BID hydralazine 10 mg tablet 10 mg PO TID isosorbide mononitrate 30 mg tablet extended release 24 hr 30 mg PO QAM torsemide 20 mg tablet 40 mg PO QAM pantoprazole 40 mg tablet,delayed release (DR/EC) 40 mg PO DAILY Interventions: [place]-Suicide Risk Severity Scale Last Done: 11/16/23 13:32 Print Language: Faroese
--- NOTE | 2023-11-16 14:18 | PC.NURSE ---
Pt direct care supervisor Cat contact info [phone]
--- NOTE | 2023-11-16 14:20 | ECG_ITS ---
Test Reason : CHECK QT INTERVAL Blood Pressure : / mmHG Vent. Rate : 075 BPM Atrial Rate : 075 BPM P-R Int : 104 ms QRS Dur : 094 ms QT Int : 458 ms P-R-T Axes : -17 -10 060 degrees QTc Int : 511 ms Artifact in tracing Sinus rhythm with short VT Left ventricular hypertrophy with repolarization abnormality ( Sokolow-Ramos , Mumtaz product , Romhilt-Freeman ) Abnormal ECG When compared with ECG of 12-FEB-2022 11:36, Questionable change in QRS axis Referred By: Manasa Chery Electronically Signed By:SANIYA TYSON
[2023-11-16 14:22] LABS: Appearance Urine Cloudy; Color Urine Yellow; Glucose Urine UA Negative (Negative); Leukocyte Esterase Urine Large (3+) (Negative); Nitrite Urine Positive (Negative); PH 6.5 (5.0-9.0); Specific Gravity - Urine 1.015 (1.005-1.025); UMIC TRIGGER UACC YES; Urine Blood Trace (Negative); Urine Ketones Negative (Negative); Urine Protein 100 (2+) mg/dL (Neg-Trace)
[2023-11-16 14:25] LABS: Bacteria Urine 4+ (None Seen); Hyaline Casts Urine 0-2 /LPF (0-2); Squamous Epithelial Cell Urine 0-2 /HPF (0-2); UACC Culture Trigger YES; WBC Urine >50 /HPF (0-5)
[2023-11-16 14:35] LABS: Hematocrit 34.6 % (37.0-47.0); Hemoglobin 11.7 g/dl (12.0-16.0); Mean Corpuscular HGB Conc 33.8 g/dl (31.0-35.0); Mean Corpuscular Hemoglobin 31.5 pg (27.0-33.0); Mean Platelet Volume 9.5 fL (9.4-12.3); Platelet Count 212 X10*3/uL (160-400); Red Blood Count 3.72 X10*6/uL (4.20-5.50); Red Cell Distribution Width 15.4 % (11.0-16.0)
[2023-11-16 14:36] LABS: Amphetamine Screen Urine Not Detected (Not Detect); Barbiturates, Urine Not Detected (Not Detect); Benzodiazepines Screen Urine Not Detected (Not Detect); Buprenorphine Scr Not Detected (Not Detect); Cannabinoid Screen Urine POSITIVE (Not Detect); Cocaine Screen Urine POSITIVE (Not Detect); Fentanyl, urine Not Detected (Not Detect); Methadone Screen, Urine Not Detected (Not Detect); Opiate Screen Urine Not Detected (Not Detect); Oxycodone Screen Urine Not Detected (Not Detect); Phencyclidine Screen Urine Not Detected (Not Detect)
[2023-11-16 14:54] LABS: Alanine Aminotransferase 14 U/L (0-31); Albumin Level 4.2 g/dL (3.5-5.0); Alkaline Phosphatase 71 U/L (39-117); Anion Gap 16 (12-20); Aspartate Amino Transferase 21 U/L (5-31); Bilirubin Total 0.4 mg/dL (0.0-1.0); Blood Urea Nitrogen 38 mg/dL (9-16); Calcium 9.5 mg/dL (8.4-10.2); Carbon Dioxide 23 mmol/L (22-29); Chloride 108 mmol/L (96-108); Creatinine Clr Calc Pharmacy 18.9; Estimated Glomerular Filt Rate 15; Ethanol < 10 mg/dL; Glucose Random 126 mg/dL (60-115); Potassium 3.7 mmol/L (3.3-5.1); Sodium 143 mmol/L (135-145); Total Protein 7.5 g/dL (6.5-8.0)
--- NOTE | 2023-11-16 15:12 | MHC.CARE ---
Customer Care Agent called and spoke with caregiver Cat, who reports patient spent the night with her brother and her dog and called for a ride home stating that she was not feeling well. Cat reports patient stated she 'did drugs' and 'does not want to do that anymore.' Cat states that pateint also expressed SI and plan to 'throw herself in front of a car with her dog.' Customer Care Agent placed call to brother Glen; voicemail left with request for return call.
[2023-11-16 15:35] VITALS: BP 117/64; PULSE 80; RESP 16; TEMP 36.4; O2SAT 97
[2023-11-16] MEDS: cefuroxime axetiL 500 MG TABLET PO (17:57)
[2023-11-16 21:09] VITALS: BP 118/72; PULSE 84; RESP 16; TEMP 36.6; O2SAT 98
[2023-11-16] MEDS: Torsemide 20 MG TABLET 40 MG PO (21:16)
[2023-11-16] MEDS: Docusate Sodium 100 MG CAPSULE PO (21:16)
[2023-11-16] MEDS: Mirtazapine 30 MG TABLET PO (21:16)
[2023-11-16] MEDS: carvediloL 12.5 MG TABLET 37.5 MG PO (21:17)
[2023-11-16] MEDS: Isosorbide Mononitrate 30 MG TAB.ER.24H PO (21:17)
[2023-11-16] MEDS: Calcium + Vitamin D 250 MG TABLET 500 MG PO (21:17)
[2023-11-16] MEDS: Atorvastatin Calcium 40 MG TABLET PO (21:17)
[2023-11-16] MEDS: Ascorbic Acid 250 MG TABLET PO (21:17)
[2023-11-16] MEDS: Fluticasone/Vilanterol 100/25 BLST.W.DEV 1 PUFF INHALE (21:24)
[2023-11-16] MEDS: hydrALAZINE HCl 10 MG TABLET PO (21:24)
--- NOTE | 2023-11-17 | ECG_ITS ---
Test Reason : qtc Blood Pressure : / mmHG Vent. Rate : 081 BPM Atrial Rate : 081 BPM P-R Int : 126 ms QRS Dur : 094 ms QT Int : 456 ms P-R-T Axes : 082 068 048 degrees QTc Int : 529 ms Normal sinus rhythm Minimal voltage criteria for LVH, may be normal variant ( Sokolow-Ramos ) Prolonged QT Abnormal ECG When compared with ECG of 16-NOV-2023 14:40, Questionable change in QRS axis T wave inversion no longer evident in Inferior leads Nonspecific T wave abnormality, improved in Anterior leads Referred By: Donovan Edmond Electronically Signed By:SANIYA TYSON
--- NOTE | 2023-11-17 04:10 | PC.NURSE ---
Took over care From RN Lizebth at 3am, pt is sleeping at this time, no sign of distress.
[2023-11-17 05:52] VITALS: BP 106/81; PULSE 70; TEMP 36.5; O2SAT 97
--- NOTE | 2023-11-17 07:05 | PC.NURSE ---
Assumed care of patient at 0645, patient appears to be sleeping at this time, no apparent distress noted, respirations even and unlabored. Continue plan of care for inpatient bedsearch
[2023-11-17] MEDS: cefuroxime axetiL 500 MG TABLET PO (08:28)
[2023-11-17] MEDS: Isosorbide Mononitrate 30 MG TAB.ER.24H PO (08:28)
[2023-11-17] MEDS: Omeprazole 20 MG CAPSULE.DR PO (08:28)
[2023-11-17] MEDS: Calcium + Vitamin D 250 MG TABLET 500 MG PO ×2 (08:28→20:55)
[2023-11-17] MEDS: Torsemide 20 MG TABLET 40 MG PO (08:28)
[2023-11-17] MEDS: Docusate Sodium 100 MG CAPSULE PO ×2 (08:28→20:57)
[2023-11-17] MEDS: FLUoxetine HCl 20 MG CAPSULE PO (08:28)
[2023-11-17] MEDS: Ascorbic Acid 250 MG TABLET PO ×2 (08:28→20:55)
[2023-11-17] MEDS: carvediloL 12.5 MG TABLET 37.5 MG PO ×2 (08:28→20:56)
[2023-11-17] MEDS: Fluticasone/Vilanterol 100/25 BLST.W.DEV 1 PUFF INHALE (08:29)
[2023-11-17] MEDS: hydrALAZINE HCl 10 MG TABLET PO ×3 (08:36→20:56)
[2023-11-17 11:58] VITALS: BP 116/71; PULSE 82; RESP 16; TEMP 36.6; O2SAT 97
[2023-11-17 12:02] VITALS: BMI 17.9
--- NOTE | 2023-11-17 13:01 | P.HPPS_ITS ---
HPI Date of Service: 11/17/23 Chief Complaint: depression SI Sources of Information: patient interviewed, chart reviewed and crisis/core team assessment reviewed HPI Subjective Notes: Conditional Voluntary Narrative: Patient is a 68-year-old female, Martiniquais-speaking with history of depression, cocaine abuse and multiple medical comorbidities including: -asthma, HTN, HLD, cardiomyopathy, ICD/defibrillator, CAD, HF with reduced EF, history of prolonged QTC, GERD, Pyelonephritis and likely CKD given chronically elevated creatinine. -on admission, UA positive for UTI and started on Ceftin She presents via her personal lines sales executive for depression and suicidality with plan to take her dog and for both of them to be killed by an automobile, in the face of months of continued depression and daily crack cocaine abuse (when she has the money). Patient says she has been depressed for months;she takes her cardiac medications but she has not sure if she takes her medication for depression. Patient says that for the past several weeks she has been more depressed and using crack cocaine daily; she drinks about 1-2 drinks a day but no more. Patient said she became suicidal and I was going to grab my dog and kill myself and my dog traffic... Because of this her HOUSE PAINTER HELPER brought her to the hospital. Patient seen with topographical surveyor Past Psychiatric History: No past known psychiatric hospitalizations Medical Evaluation Reviewed: Yes [facility] Medical History (Updated 11/17/23 @ 16:42 by Donovan Edmond MD) Cocaine use disorder Cocaine use disorder in remission MDD (major depressive disorder), recurrent severe, without psychosis Hx of sepsis History of asthma Hyperlipidemia HTN (hypertension) Cardiomyopathy ICD (implantable cardioverter-defibrillator) in place CAD (coronary artery disease) Chronic heart failure with reduced ejection fraction and diastolic dysfunction GERD (gastroesophageal reflux disease) Surgical History (Updated 11/17/23 @ 16:42 by Donovan Edmond MD) Hx of cystoscopy H/O hemorrhoidectomy Stented coronary artery Hx of colonoscopy Family History: Deferred Social History: Patient lives alone with her dog Has personal keratin the comes once a week Has a brother who lives locally and is supportive and currently caring for her dog Substance History: Crack cocaine daily if possible; she says she uses it whenever she has money Cannabis daily Alcohol 1-2 drinks a day at most Trauma History: Deferred Diagnostics Vital Signs (24Hr): Vital Signs - 24 hr 11/16/23 13:28 11/16/23 15:35 11/16/23 21:09 Temperature 98.3 F 97.5 F 97.8 F Pulse Rate 92 80 84 Respiratory Rate 22 H 16 16 Blood Pressure 143/86 H 117/64 118/72 Pulse Oximetry 98 97 98 Oxygen Delivery Method Room Air Room Air Room Air 11/17/23 05:52 11/17/23 11:58 Temperature 97.7 F 97.9 F Pulse Rate 70 82 Respiratory Rate 16 Blood Pressure 106/81 116/71 Pulse Oximetry 97 97 Oxygen Delivery Method Room Air Room Air BMI result Body Mass Index 17.9 Labs 11/16/23 14:26 11/16/23 14:26 Labs: Laboratory Results - last 48 hr 11/16/23 11/16/23 14:05 14:26 WBC 8.0 RBC 3.72 L Hgb 11.7 L Hct 34.6 L MCV 93.0 MCH 31.5 MCHC 33.8 RDW 15.4 Plt Count 212 MPV 9.5 Absolute Nucleated RBC 0.000 Nucleated RBC % (auto) 0.0 Sodium 143 Potassium 3.7 Chloride 108 Carbon Dioxide 23 Anion Gap 16 BUN 38 H Creatinine 3.01 H Estim Creat Clear Calc 18.9 Estimated GFR 15 Random Glucose 126 H Calcium 9.5 D Total Bilirubin 0.4 AST 21 ALT 14 Alkaline Phosphatase 71 Total Protein 7.5 Albumin 4.2 Urine Color Yellow Urine Appearance Cloudy Urine pH 6.5 Ur Specific [place] 1.015 Urine Protein 100 (2+) H Urine Glucose (UA) Negative Urine Ketones Negative Urine Blood Trace H Urine Nitrite Positive H Ur Leukocyte Esterase Large (3+) H Urine RBC 6-10 H Urine WBC >50 H Ur Squamous Epith Cells 0-2 Urine Bacteria 4+ Hyaline Casts 0-2 Urine Opiates Screen Not Detected Ur Buprenorphine Scrn Not Detected Ur Oxycodone Screen Not Detected Urine Methadone Screen Not Detected Urine Fentanyl Screen Not Detected Ur Barbiturates Screen Not Detected Ur Phencyclidine Scrn Not Detected Ur Amphetamines Screen Not Detected U Benzodiazepines Scrn Not Detected Urine Cocaine Screen POSITIVE H U Marijuana (THC) Screen POSITIVE H Ethyl Alcohol < 10 Meds/Allergies Meds Home Medications ?Medication ?Instructions ?Recorded ?Confirmed ?Type albuterol sulfate 90 mcg/actuation 2 puff inhalation Q4-6H PRN 05/13/20 11/16/23 History aerosol inhaler (ProAir HFA) Shortness Of Breath ascorbic acid (vitamin C) 250 mg 250 mg PO BID 05/13/20 11/16/23 History tablet atorvastatin 40 mg tablet 40 mg PO BEDTIME 05/13/20 11/16/23 History calcium carbonate 600 mg-vitamin 1 tab PO BID 05/13/20 11/16/23 History D3 5 mcg (200 unit) tablet (Calcium 600 + D(3)) fluoxetine 20 mg capsule 20 mg PO DAILY 05/13/20 11/16/23 History fluticasone 250 mcg-salmeterol 50 1 puff inhalation BID 04/26/21 11/16/23 History mcg/dose blistr powdr for inhalation (Advair Diskus) hydralazine 10 mg tablet 10 mg PO TID 10/12/22 11/16/23 History isosorbide mononitrate 30 mg 30 mg PO QAM 10/12/22 11/16/23 History tablet,extended release 24 hr pantoprazole 40 mg tablet,delayed 40 mg PO DAILY 10/12/22 11/16/23 History release torsemide 20 mg tablet 40 mg PO QAM 10/12/22 11/16/23 History mirtazapine 30 mg tablet 30 mg PO BEDTIME 08/31/23 11/16/23 History Allergies Allergies Allergy/AdvReac Type Severity Reaction Status Date / Time Iodinated Contrast Media Allergy Severe ANGIOEDEMA Verified 11/16/23 13:30 [CONTRAST,IV] Mental Status Exam Mental Status Exam Narrative: Pt is alert and oriented; behavior is cooperative, calm, tearful; patient is not in distress; dressed in hospital attire with unkempt hair; mood is described as depressed and affect congruent, downcast, tearful; eye contact avoidant; Speech is normal rate, volume and prosody and not pressured; psychomotor retardation present; thought process is organized and goal directed; Thought content is on her depression, worried about her dog; otherwise pertinent to relevant topics and without any delusional content, paranoid ideations or grandiosity; positive for SI; no HI. No AVH and There is no evidence of perceptual disturbance. Patients insight and judgment impaired Assessment & Plan Assessment & Plan (1) MDD (major depressive disorder), recurrent severe, without psychosis: Status: Acute Code(s): F33.2 - Major depressive disorder, recurrent severe without psychotic features (2) Cocaine use disorder: Status: Acute Code(s): F14.10 - Cocaine abuse, uncomplicated (3) Urinary tract infection: Status: Acute Code(s): N39.0 - Urinary tract infection, site not specified (4) Heart failure with reduced ejection fraction: Status: Acute Code(s): I50.20 - Unspecified systolic (congestive) heart failure (5) CAD (coronary artery disease): Status: Acute Code(s): I25.10 - Atherosclerotic heart disease of [place] coronary artery without angina pectoris (6) Cardiomyopathy: Status: Acute Code(s): I42.9 - Cardiomyopathy, unspecified (7) Stented coronary artery: Status: Acute Code(s): Z95.5 - Presence of coronary angioplasty implant and graft Plan Patient seen with topographical surveyor Patient is a 68-year-old female, Martiniquais-speaking with history of depression, cocaine abuse and multiple medical comorbidities including: -asthma, HTN, HLD, cardiomyopathy, ICD/defibrillator, CAD, HF with reduced EF, history of prolonged QTC, GERD, Pyelonephritis and likely CKD given chronically elevated creatinine. -on admission, UA positive for UTI and started on Ceftin She presents via her personal lines sales executive for depression and suicidality with plan to take her dog and for both of them to be killed by an automobile, in the face of months of continued depression and daily crack cocaine abuse (when she has the money). Patient says she has been depressed for months; she takes her cardiac medications but she has not sure if she takes her medication for depression. Patient says that for the past several weeks she has been more depressed and using crack cocaine daily; she drinks about 1-2 drinks a day but no more. Patient said she became suicidal and I was going to grab my dog and kill myself and my dog traffic... Because of this her HOUSE PAINTER HELPER brought her to the hospital. Formulation/clinical reasoning: Patient has history of depression and as an outpatient has been prescribed both fluoxetine and mirtazapine; she has not sure how often she takes them. Depression is clearly worsened by ongoing crack cocaine abuse and intermittent adherence to antidepressants. Patient has significant cardiac history, including history of and currently prolonged QTC. While SSRIs can also prolong QTC, this medication (as well as Remeron) is prescribed for her as an outpatient, of which her welding machine operator thermit is aware (reviewed cardiology office visits and both fluoxetine and mirtazapine at these doses are listed in her medication regimen). Because they are used with the knowledge of her welding machine operator thermit and since she reports not them regularly (meeting if she were to take them regularly that could prove effective), they remain the best option to treat her depression and anxiety. -will discuss substance treatment options; patient is putting herself in significant risk by abusing crack cocaine given her current cardiac complications -discussed antidepressants with patient who agrees to continue taking them now -group underwriter rechecked EKG and QTC remains prolonged; will continue to monitor however this appears to be chronic Plan: CV Q 15 minute checks Continue home medication: Ceftin 500 mg daily for 7 days to treat UTI; started in ED albuterol sulfate 90 mcg/actuation?? ascorbic acid (vitamin C) 250 mg PO BID atorvastatin 40 mg tablet PO bedtime calcium carbonate 600 mg-vitamin? 1 tab PO BID D3 5 mcg (200 unit) tablet(Calcium 600 + D(3)) fluoxetine 20 mg capsule daily? mirtazapine 30 mg PO bedtime?? fluticasone 250 mcg-salmeterol 50? 1 puff inhalation BID hydralazine 10 mg PO TID isosorbide mononitrate Xr 30 mg PO QAM pantoprazole 40 mg tablet,delayed daily torsemide 40mg PO QAM . Patient educated on: diagnosis, medication risk/benefits and substance abuse Informed Consent: understands Reason for continued inpatient stay Substantial Risk for: harm to self and rapid decompensation Statement Statement: I have reviewed the history and physical and performed a pertinent examination on my patient. No changes have occurred unless specified. If the History and Physical was not performed prior to admission, the Hospitalist's service will be consulted for completing the admission physical. Time Spent With Patient Time: Total time managing care of this patient today ____ minutes.
--- NOTE | 2023-11-17 14:07 | PC.ADMIT ---
Pt admitted to the unit at 1150 from [facility] ED POD. Pt arrived to the unit via wheelchair by staff & security. heel cover splitter/contraband search completed. Pt is Swedish Speaking. Tubing Machine Tender utilized for admission. Legals signed. Pt was brought into ED for SI with a plan to jump in front of a truck with her dog. Pt has been having increased depression & anxiety for the past few months. Pt lives at home alone & has a PHOTOENGRAVING SUPERVISOR who provides 16 hours of care a week. PHOTOENGRAVING SUPERVISOR cooks & cleans for Pt. TOX screen positive for cocaine & marijuana. Pt reports using cocaine, marijuana, & alcohol when she gets paid which is only once a month. Addiction Consult placed. Pt smokes cigarettes but states she only buys 1 pack per month when she gets paid. Pt declined nicotine replacement. Smoking consult placed. Pt has a significant cardiac history which includes HTN, CAD, cardiomyopathy, & HF with a reduced EF. Pt has a ICD placed to Left chest. EKG completed which was abnormal (MD alberto). UA positive for UTI; on Ceftin 500mg QD. Safety tool & treatment plan completed. Admission completed.
[2023-11-17 14:43] VITALS: BP 122/74; PULSE 86; RESP 18
[2023-11-17 20:00] VITALS: BP 131/74; PULSE 99; RESP 18; TEMP 36.4; O2SAT 96
[2023-11-17] MEDS: Atorvastatin Calcium 40 MG TABLET PO (20:55)
[2023-11-17] MEDS: Mirtazapine 30 MG TABLET PO (20:56)
[2023-11-17] MEDS: traZODone HCL 50 MG TABLET PO (20:56)
[2023-11-18] VITALS (7 sets, daily range): BP systolic 112–143; BP diastolic 78–83; PULSE 85–102; RESP 16–18; TEMP 36.7; O2SAT 96–99
[2023-11-18 08:09] LABS: Estimated Average Glucose 103 mg/dL; Hemoglobin A1c % 5.2 % (<6.0)
[2023-11-18 08:18] LABS: Anion Gap 14 (12-20); Blood Urea Nitrogen 41 mg/dL (9-16); Calcium 9.5 mg/dL (8.4-10.2); Carbon Dioxide 26 mmol/L (22-29); Chloride 109 mmol/L (96-108); Cholesterol 134 mg/dL (<200); Creatinine Clr Calc Pharmacy 13.7; Estimated Glomerular Filt Rate 18; Glucose Random 88 mg/dL (60-115); HDL Cholesterol 61 mg/dL (>40); LDL Cholesterol Calculated 63 mg/dL (<100); Magnesium 2.2 mg/dL (1.6-2.6); Potassium 4.4 mmol/L (3.3-5.1); Sodium 145 mmol/L (135-145); Triglycerides 50 mg/dL (<150)
[2023-11-18] MEDS: Calcium + Vitamin D 250 MG TABLET 500 MG PO ×2 (08:52→19:55)
[2023-11-18] MEDS: Omeprazole 20 MG CAPSULE.DR PO (08:52)
[2023-11-18] MEDS: FLUoxetine HCl 20 MG CAPSULE PO (08:53)
[2023-11-18] MEDS: Ascorbic Acid 250 MG TABLET PO ×2 (08:53→19:56)
[2023-11-18] MEDS: cefuroxime axetiL 500 MG TABLET PO (08:53)
[2023-11-18] MEDS: carvediloL 12.5 MG TABLET 37.5 MG PO ×2 (08:55→19:55)
[2023-11-18] MEDS: Docusate Sodium 100 MG CAPSULE PO ×2 (08:55→19:55)
[2023-11-18] MEDS: Isosorbide Mononitrate 30 MG TAB.ER.24H PO (08:57)
[2023-11-18] MEDS: hydrALAZINE HCl 10 MG TABLET PO ×3 (08:58→19:55)
[2023-11-18] MEDS: Torsemide 20 MG TABLET 40 MG PO (08:58)
[2023-11-18] MEDS: Fluticasone/Vilanterol 100/25 BLST.W.DEV 1 PUFF INHALE (09:22)
--- NOTE | 2023-11-18 14:00 | HO.PSYCHPN ---
Subjective Subjective Date of Service: 11/18/23 Reason For Visit: depression SI Interim History: Patient seen with bin operator; discussed with team Patient reports that she is feeling better today and that depression is gone. She also denies any SI at all. Stake Setter suggested that perhaps ongoing crack cocaine use is significantly contributing to depression but patient does not think so. Rather she said that her biggest problem is anxiety. She did mention she hears voices of groups of people talking but says this only happens in the morning time. Stake Setter and patient discussed that since she is already feeling better to of the medications as they are for now. Patient reports sleeping well and eating well. Mental Status Exam Mental Status Exam Narrative: Pt is alert and oriented; behavior is cooperative, calm, friendly; patient is not in distress; dressed in hospital attire with unkempt hair; mood is described as better and affect congruent, brighter, calm; eye contact appropriate; Speech is normal rate, volume and prosody and not pressured; no psychomotor retardation present; thought process is organized and goal directed; Thought content is on anxiety; otherwise pertinent to relevant topics and without any delusional content, paranoid ideations or grandiosity; no SI; no HI. No AVH and There is no evidence of perceptual disturbance. Patients insight and judgment impaired but improving Diagnostics Vital Signs (24Hr): Vital Signs - 24 hr 11/17/23 14:43 11/17/23 20:00 11/18/23 07:58 Temperature 97.6 F 98.0 F Pulse Rate 86 99 85 Respiratory Rate 18 18 16 Blood Pressure 122/74 131/74 112/78 Pulse Oximetry 96 99 Oxygen Delivery Method Room Air Room Air 11/18/23 08:55 11/18/23 08:57 11/18/23 08:58 Temperature Pulse Rate 85 Respiratory Rate Blood Pressure 112/78 112/78 112/78 Pulse Oximetry Oxygen Delivery Method 11/18/23 08:58 Temperature Pulse Rate Respiratory Rate Blood Pressure 112/78 Pulse Oximetry Oxygen Delivery Method BMI result Body Mass Index 17.9 Labs 11/16/23 14:26 11/18/23 07:55 Labs: Laboratory Results - last 48 hr 11/16/23 11/16/23 11/18/23 14:05 14:26 07:55 WBC 8.0 RBC 3.72 L Hgb 11.7 L Hct 34.6 L MCV 93.0 MCH 31.5 MCHC 33.8 RDW 15.4 Plt Count 212 MPV 9.5 Absolute Nucleated RBC 0.000 Nucleated RBC % (auto) 0.0 Sodium 143 145 Potassium 3.7 4.4 Chloride 108 109 H Carbon Dioxide 23 26 Anion Gap 16 14 BUN 38 H 41 H Creatinine 3.01 H 2.62 H Estim Creat Clear Calc 18.9 13.7 Estimated GFR 15 18 Random Glucose 126 H 88 Estimat Average Glucose 103 Hemoglobin A1c % 5.2 Calcium 9.5 D 9.5 Magnesium 2.2 Total Bilirubin 0.4 AST 21 ALT 14 Alkaline Phosphatase 71 Total Protein 7.5 Albumin 4.2 Triglycerides 50 Cholesterol 134 LDL Cholesterol, Calc 63 HDL Cholesterol 61 Urine Color Yellow Urine Appearance Cloudy Urine pH 6.5 Ur Specific [place] 1.015 Urine Protein 100 (2+) H Urine Glucose (UA) Negative Urine Ketones Negative Urine Blood Trace H Urine Nitrite Positive H Ur Leukocyte Esterase Large (3+) H Urine RBC 6-10 H Urine WBC >50 H Ur Squamous Epith Cells 0-2 Urine Bacteria 4+ Hyaline Casts 0-2 Urine Opiates Screen Not Detected Ur Buprenorphine Scrn Not Detected Ur Oxycodone Screen Not Detected Urine Methadone Screen Not Detected Urine Fentanyl Screen Not Detected Ur Barbiturates Screen Not Detected Ur Phencyclidine Scrn Not Detected Ur Amphetamines Screen Not Detected U Benzodiazepines Scrn Not Detected Urine Cocaine Screen POSITIVE H U Marijuana (THC) Screen POSITIVE H Ethyl Alcohol < 10 Medications Medications Current Medications Acetaminophen (Acetaminophen 325 Mg Tablet) 650 mg PO Q6H PRN PRN Reason: Headache/Pain Mild Scale (1-3) Al Hydroxide/Mg Hydroxide (Magnesium Hydrox/Alum Hydrox 30 Ml Oral.Susp) 30 ml PO Q6H PRN PRN Reason: Heartburn/Nausea Albuterol Sulfate (Albuterol Sulfate 90 Mcg 8 Gm Inhaler) 2 puff INHALE RQ4H PRN PRN Reason: Shortness Of Breath Ascorbic Acid (Ascorbic Acid 250 Mg Tablet) 250 mg PO BID [facility] Last Admin: 11/18/23 08:53 Dose: 250 mg Atorvastatin Calcium (Atorvastatin Calcium 40 Mg Tablet) 40 mg PO BEDTIME [facility] Last Admin: 11/17/23 20:55 Dose: 40 mg Calcium Carbonate/Cholecalciferol (Calcium + Vitamin D 250 Mg Tablet) 500 mg PO BID [facility] Last Admin: 11/18/23 08:52 Dose: 500 mg Carvedilol (Carvedilol 12.5 Mg Tablet) 37.5 mg PO BID [facility]; Protocol Last Admin: 11/18/23 08:55 Dose: 37.5 mg Cefuroxime Axetil (Cefuroxime Axetil 500 Mg Tablet) 500 mg PO DAILY [facility] Stop: 11/22/23 09:01 Last Admin: 11/18/23 08:53 Dose: 500 mg Docusate Sodium (Docusate Sodium 100 Mg Capsule) 100 mg PO BID [facility] Last Admin: 11/18/23 08:55 Dose: 100 mg Fluoxetine HCl (Fluoxetine Hcl 20 Mg Capsule) 20 mg PO DAILY [facility] Last Admin: 11/18/23 08:53 Dose: 20 mg Fluticasone/Vilanterol (Fluticasone/Vilanterol 100/25 Blst.W.Dev) 1 puff INHALE DAILY [facility] Last Admin: 11/18/23 09:22 Dose: 1 puff Hydralazine HCl (Hydralazine Hcl 10 Mg Tablet) 10 mg PO TID [facility]; Protocol Last Admin: 11/18/23 08:58 Dose: 10 mg Isosorbide Mononitrate (Isosorbide Mononitrate 30 Mg Tab.Er.24h) 30 mg PO DAILY [facility]; Protocol Last Admin: 11/18/23 08:57 Dose: 30 mg Magnesium Hydroxide (Milk Of Magnesia 30 Ml Oral.Susp) 30 ml PO DAILY PRN PRN Reason: Constipation Mirtazapine (Mirtazapine 30 Mg Tablet) 30 mg PO BEDTIME [facility] Last Admin: 11/17/23 20:56 Dose: 30 mg Nicotine (Nicotine 21 Mg Patch.Td24) 21 mg TRANSDERMA DAILY PRN PRN Reason: smoking cessation Nicotine Polacrilex (Nicotine Polacrilex 2 Mg Gum) 4 mg BUCCAL Q2H PRN PRN Reason: Nicotine Cravings Olanzapine (Olanzapine 2.5 Mg Tablet) 2.5 mg PO TID PRN PRN Reason: agitation Omeprazole (Omeprazole 20 Mg Capsule.Dr) 20 mg PO DAILY@629 [facility] Torsemide (Torsemide 20 Mg Tablet) 40 mg PO DAILY [facility]; Protocol Last Admin: 11/18/23 08:58 Dose: 40 mg Trazodone HCl (Trazodone Hcl 50 Mg Tablet) 50 mg PO BEDTIME MRX1 PRN PRN Reason: Insomnia Last Admin: 11/17/23 20:56 Dose: 50 mg Allergies Allergies Allergy/AdvReac Type Severity Reaction Status Date / Time Iodinated Contrast Media Allergy Severe ANGIOEDEMA Verified 11/16/23 13:30 [CONTRAST,IV] Assessment & Plan Assessment & Plan (1) MDD (major depressive disorder), recurrent severe, without psychosis: Status: Acute Code(s): F33.2 - Major depressive disorder, recurrent severe without psychotic features (2) Cocaine use disorder: Status: Acute Code(s): F14.10 - Cocaine abuse, uncomplicated (3) Urinary tract infection: Status: Acute Code(s): N39.0 - Urinary tract infection, site not specified (4) Heart failure with reduced ejection fraction: Status: Acute Code(s): I50.20 - Unspecified systolic (congestive) heart failure (5) CAD (coronary artery disease): Status: Acute Code(s): I25.10 - Atherosclerotic heart disease of [place] coronary artery without angina pectoris (6) Cardiomyopathy: Status: Acute Code(s): I42.9 - Cardiomyopathy, unspecified (7) Stented coronary artery: Status: Acute Code(s): Z95.5 - Presence of coronary angioplasty implant and graft Plan Patient seen with bin operator Patient is a 68-year-old female, Polish-speaking with history of depression, cocaine abuse and multiple medical comorbidities including: -asthma, HTN, HLD, cardiomyopathy, ICD/defibrillator, CAD, HF with reduced EF, history of prolonged QTC, GERD, Pyelonephritis and likely CKD given chronically elevated creatinine. -on admission, UA positive for UTI and started on Ceftin She presents via her personal security specialist for depression and suicidality with plan to take her dog and for both of them to be killed by an automobile, in the face of months of continued depression and daily crack cocaine abuse (when she has the money). Patient says she has been depressed for months; she takes her cardiac medications but she has not sure if she takes her medication for depression. Patient says that for the past several weeks she has been more depressed and using crack cocaine daily; she drinks about 1-2 drinks a day but no more. Patient said she became suicidal and I was going to grab my dog and kill myself and my dog traffic... Because of this her DAIRY CATTLE FARMER brought her to the hospital. Formulation/clinical reasoning: Patient has history of depression and as an outpatient has been prescribed both fluoxetine and mirtazapine; she has not sure how often she takes them. Depression is clearly worsened by ongoing crack cocaine abuse and intermittent adherence to antidepressants. Patient has significant cardiac history, including history of and currently prolonged QTC. While SSRIs can also prolong QTC, this medication (as well as Remeron) is prescribed for her as an outpatient, of which her head of academic technology is aware (reviewed cardiology office visits and both fluoxetine and mirtazapine at these doses are listed in her medication regimen). Because they are used with the knowledge of her head of academic technology and since she reports not them regularly (meeting if she were to take them regularly that could prove effective), they remain the best option to treat her depression and anxiety. -will discuss substance treatment options; patient is putting herself in significant risk by abusing crack cocaine given her current cardiac complications -discussed antidepressants with patient who agrees to continue taking them now -va underwriter rechecked EKG and QTC remains prolonged; will continue to monitor however this appears to be chronic Hospital course: 11/17 patient reports mood is better. To Stake Setter it seems that coming down from crack cocaine binge had a lot to do with her depression and now that this has passed she is feeling better, however patient does not think this is what occurs and instead says she mostly deals with anxiety. However she agrees that since she is feeling better to leave medications as they are for now. Patient endorsed hearing AH this morning but says it only happens in the morning times. It is unclear if this was happening while she was coming out of sleep or if she was fully awake at the time. -repeat labs and BUN/creatinine improved -will repeat EKG tomorrow to monitor for QTC Plan: CV Q 15 minute checks Continue home medication: Ceftin 500 mg daily for 7 days to treat UTI; started in ED albuterol sulfate 90 mcg/actuation?? ascorbic acid (vitamin C) 250 mg PO BID atorvastatin 40 mg tablet PO bedtime calcium carbonate 600 mg-vitamin? 1 tab PO BID D3 5 mcg (200 unit) tablet(Calcium 600 + D(3)) fluoxetine 20 mg capsule daily? mirtazapine 30 mg PO bedtime?? fluticasone 250 mcg-salmeterol 50? 1 puff inhalation BID hydralazine 10 mg PO TID isosorbide mononitrate Xr 30 mg PO QAM pantoprazole 40 mg tablet,delayed daily torsemide 40mg PO QAM . Patient educated on: diagnosis, medication risk/benefits and substance abuse Informed Consent: understands and further education needed Reason for continued inpatient stay Substantial Risk for: rapid decompensation Time Spent With Patient Time: Total time managing care of this patient today ____ minutes.
[2023-11-18] MEDS: Atorvastatin Calcium 40 MG TABLET PO (19:55)
[2023-11-18] MEDS: Mirtazapine 30 MG TABLET PO (19:56)
[2023-11-19] MEDS: Omeprazole 20 MG CAPSULE.DR PO (06:11)
[2023-11-19 08:00] VITALS: BP 140/88; PULSE 82; RESP 18; TEMP 36.6; O2SAT 98
[2023-11-19] MEDS: Torsemide 20 MG TABLET 40 MG PO (09:26)
[2023-11-19] MEDS: Isosorbide Mononitrate 30 MG TAB.ER.24H PO (09:27)
[2023-11-19] MEDS: carvediloL 12.5 MG TABLET 37.5 MG PO ×2 (09:27→20:51)
[2023-11-19] MEDS: cefuroxime axetiL 500 MG TABLET PO (09:27)
[2023-11-19] MEDS: Ascorbic Acid 250 MG TABLET PO ×2 (09:27→20:51)
[2023-11-19] MEDS: Calcium + Vitamin D 250 MG TABLET 500 MG PO ×2 (09:27→20:51)
[2023-11-19] MEDS: FLUoxetine HCl 20 MG CAPSULE PO (09:28)
[2023-11-19] MEDS: hydrALAZINE HCl 10 MG TABLET PO ×3 (09:28→20:51)
[2023-11-19] MEDS: Fluticasone/Vilanterol 100/25 BLST.W.DEV 1 PUFF INHALE (09:30)
--- NOTE | 2023-11-19 09:45 | HO.PSYCHPN ---
Subjective Subjective Date of Service: 11/19/23 Reason For Visit: depression SI Interim History: met with patient and chief maintenance supervisor; discussed with team Pt reports feeling better. Motor Overhauler revisited med hx and pt agreed she was not taking the fluoxetine or Mirtazpine consistently as an outpt; she says though, since being on them here, they are helping. No AH in morning and she clarifies this does not happen all the time. discussed cardiac comorbidities and she is well aware of the dangers of using cocaine given her heart conditions. Mental Status Exam Mental Status Exam Narrative: Pt is alert and oriented; behavior is cooperative, calm, friendly; patient is not in distress; dressed in hospital attire, adequately groomed; mood is described as better and affect congruent, brighter, calm; eye contact appropriate; Speech is normal rate, volume and prosody and not pressured; no psychomotor retardation present; thought process is organized and goal directed; Thought content is on anxiety; otherwise pertinent to relevant topics and without any delusional content, paranoid ideations or grandiosity; no SI; no HI. No AVH and There is no evidence of perceptual disturbance. Patients insight and judgment fair. Diagnostics Vital Signs (24Hr): Vital Signs - 24 hr 11/18/23 17:58 11/18/23 19:55 11/18/23 20:00 Temperature 98.1 F Pulse Rate 102 H 102 H Respiratory Rate 18 Blood Pressure 114/80 143/83 H 143/81 H Pulse Oximetry 96 Oxygen Delivery Method Room Air BMI result Body Mass Index 17.9 Labs 11/16/23 14:26 11/18/23 07:55 Labs: Laboratory Results - last 48 hr 11/18/23 07:55 Sodium 145 Potassium 4.4 Chloride 109 H Carbon Dioxide 26 Anion Gap 14 BUN 41 H Creatinine 2.62 H Estim Creat Clear Calc 13.7 Estimated GFR 18 Random Glucose 88 Estimat Average Glucose 103 Hemoglobin A1c % 5.2 Calcium 9.5 Magnesium 2.2 Triglycerides 50 Cholesterol 134 LDL Cholesterol, Calc 63 HDL Cholesterol 61 Medications Medications Current Medications Acetaminophen (Acetaminophen 325 Mg Tablet) 650 mg PO Q6H PRN PRN Reason: Headache/Pain Mild Scale (1-3) Al Hydroxide/Mg Hydroxide (Magnesium Hydrox/Alum Hydrox 30 Ml Oral.Susp) 30 ml PO Q6H PRN PRN Reason: Heartburn/Nausea Albuterol Sulfate (Albuterol Sulfate 90 Mcg 8 Gm Inhaler) 2 puff INHALE RQ4H PRN PRN Reason: Shortness Of Breath Ascorbic Acid (Ascorbic Acid 250 Mg Tablet) 250 mg PO BID [facility] Last Admin: 11/19/23 09:27 Dose: 250 mg Atorvastatin Calcium (Atorvastatin Calcium 40 Mg Tablet) 40 mg PO BEDTIME [facility] Last Admin: 11/18/23 19:55 Dose: 40 mg Calcium Carbonate/Cholecalciferol (Calcium + Vitamin D 250 Mg Tablet) 500 mg PO BID [facility] Last Admin: 11/19/23 09:27 Dose: 500 mg Carvedilol (Carvedilol 12.5 Mg Tablet) 37.5 mg PO BID [facility]; Protocol Last Admin: 11/19/23 09:27 Dose: 37.5 mg Cefuroxime Axetil (Cefuroxime Axetil 500 Mg Tablet) 500 mg PO DAILY [facility] Stop: 11/22/23 09:01 Last Admin: 11/19/23 09:27 Dose: 500 mg Docusate Sodium (Docusate Sodium 100 Mg Capsule) 100 mg PO BID [facility] Last Admin: 11/19/23 09:30 Dose: Not Given Fluoxetine HCl (Fluoxetine Hcl 20 Mg Capsule) 20 mg PO DAILY [facility] Last Admin: 11/19/23 09:28 Dose: 20 mg Fluticasone/Vilanterol (Fluticasone/Vilanterol 100/25 Blst.W.Dev) 1 puff INHALE DAILY [facility] Last Admin: 11/19/23 09:30 Dose: 1 puff Hydralazine HCl (Hydralazine Hcl 10 Mg Tablet) 10 mg PO TID [facility]; Protocol Last Admin: 11/19/23 09:28 Dose: 10 mg Isosorbide Mononitrate (Isosorbide Mononitrate 30 Mg Tab.Er.24h) 30 mg PO DAILY [facility]; Protocol Last Admin: 11/19/23 09:27 Dose: 30 mg Magnesium Hydroxide (Milk Of Magnesia 30 Ml Oral.Susp) 30 ml PO DAILY PRN PRN Reason: Constipation Mirtazapine (Mirtazapine 30 Mg Tablet) 30 mg PO BEDTIME [facility] Last Admin: 11/18/23 19:56 Dose: 30 mg Nicotine (Nicotine 21 Mg Patch.Td24) 21 mg TRANSDERMA DAILY PRN PRN Reason: smoking cessation Nicotine Polacrilex (Nicotine Polacrilex 2 Mg Gum) 4 mg BUCCAL Q2H PRN PRN Reason: Nicotine Cravings Olanzapine (Olanzapine 2.5 Mg Tablet) 2.5 mg PO TID PRN PRN Reason: agitation Omeprazole (Omeprazole 20 Mg Capsule.Dr) 20 mg PO DAILY@0630 [facility] Last Admin: 11/19/23 06:11 Dose: 20 mg Torsemide (Torsemide 20 Mg Tablet) 40 mg PO DAILY [facility]; Protocol Last Admin: 11/19/23 09:26 Dose: 40 mg Trazodone HCl (Trazodone Hcl 50 Mg Tablet) 50 mg PO BEDTIME MRX1 PRN PRN Reason: Insomnia Last Admin: 11/17/23 20:56 Dose: 50 mg Allergies Allergies Allergy/AdvReac Type Severity Reaction Status Date / Time Iodinated Contrast Media Allergy Severe ANGIOEDEMA Verified 11/16/23 13:30 [CONTRAST,IV] Assessment & Plan Assessment & Plan (1) MDD (major depressive disorder), recurrent severe, without psychosis: Status: Acute Code(s): F33.2 - Major depressive disorder, recurrent severe without psychotic features (2) Cocaine use disorder: Status: Acute Code(s): F14.10 - Cocaine abuse, uncomplicated (3) Urinary tract infection: Status: Acute Code(s): N39.0 - Urinary tract infection, site not specified (4) Heart failure with reduced ejection fraction: Status: Acute Code(s): I50.20 - Unspecified systolic (congestive) heart failure (5) CAD (coronary artery disease): Status: Acute Code(s): I25.10 - Atherosclerotic heart disease of [place] coronary artery without angina pectoris (6) Cardiomyopathy: Status: Acute Code(s): I42.9 - Cardiomyopathy, unspecified (7) Stented coronary artery: Status: Acute Code(s): Z95.5 - Presence of coronary angioplasty implant and graft Plan Patient seen with chief maintenance supervisor Patient is a 68-year-old female, Yoruba-speaking with history of depression, cocaine abuse and multiple medical comorbidities including: -asthma, HTN, HLD, cardiomyopathy, ICD/defibrillator, CAD, HF with reduced EF, history of prolonged QTC, GERD, Pyelonephritis and likely CKD given chronically elevated creatinine. -on admission, UA positive for UTI and started on Ceftin She presents via her personal lines insurance agent for depression and suicidality with plan to take her dog and for both of them to be killed by an automobile, in the face of months of continued depression and daily crack cocaine abuse (when she has the money). Patient says she has been depressed for months; she takes her cardiac medications but she has not sure if she takes her medication for depression. Patient says that for the past several weeks she has been more depressed and using crack cocaine daily; she drinks about 1-2 drinks a day but no more. Patient said she became suicidal and I was going to grab my dog and kill myself and my dog traffic... Because of this her ECCLESIASTICAL WORKER brought her to the hospital. Formulation/clinical reasoning: Patient has history of depression and as an outpatient has been prescribed both fluoxetine and mirtazapine; she has not sure how often she takes them. Depression is clearly worsened by ongoing crack cocaine abuse and intermittent adherence to antidepressants. Patient has significant cardiac history, including history of and currently prolonged QTC. While SSRIs can also prolong QTC, this medication (as well as Remeron) is prescribed for her as an outpatient, of which her pasta press operator is aware (reviewed cardiology office visits and both fluoxetine and mirtazapine at these doses are listed in her medication regimen). Because they are used with the knowledge of her pasta press operator and since she reports not them regularly (meeting if she were to take them regularly that could prove effective), they remain the best option to treat her depression and anxiety. -will discuss substance treatment options; patient is putting herself in significant risk by abusing crack cocaine given her current cardiac complications -discussed antidepressants with patient who agrees to continue taking them now -typewriter tester rechecked EKG and QTC remains prolonged; will continue to monitor however this appears to be chronic Hospital course: 11/17 patient reports mood is better. To Motor Overhauler it seems that coming down from crack cocaine binge had a lot to do with her depression and now that this has passed she is feeling better, however patient does not think this is what occurs and instead says she mostly deals with anxiety. However she agrees that since she is feeling better to leave medications as they are for now. Patient endorsed hearing AH this morning but says it only happens in the morning times. It is unclear if this was happening while she was coming out of sleep or if she was fully awake at the time. -repeat labs and BUN/creatinine improved -will repeat EKG tomorrow to monitor for QTC 11/18 feeling better; clarified she was not taking remeron or Fluoxetine consistently but now on them says they are helping; discussed meds further and pt says she never really took them and does not know why she's on 2 antidepressants. She denies trouble with sleeping or appetite and so agrees to dc Remeron and to see if Fluoxetine is enough to help w/ her anxiety. Discussed substance abuse and she understands risks of cocaine abuse given heart issues. -discussed increasing outpt support Plan: CV Q 15 minute checks Ceftin 500 mg daily for 7 days to treat UTI; started in ED Continue fluoxetine 20 mg capsule daily DC mirtazapine 30 mg PO bedtime?(pt has not been (or ever) taking either antidepressant and not had trial of monotherapy) Otherwise, continue home meds: albuterol sulfate 90 mcg/actuation?? ascorbic acid (vitamin C) 250 mg PO BID atorvastatin 40 mg tablet PO bedtime calcium carbonate 600 mg-vitamin? 1 tab PO BID D3 5 mcg (200 unit) tablet(Calcium 600 + D(3))? fluticasone 250 mcg-salmeterol 50? 1 puff inhalation BID hydralazine 10 mg PO TID isosorbide mononitrate Xr 30 mg PO QAM pantoprazole 40 mg tablet,delayed daily torsemide 40mg PO QAM . Patient educated on: diagnosis, medication risk/benefits, substance abuse and therapeutic strategies Informed Consent: understands Reason for continued inpatient stay Substantial Risk for: rapid decompensation Time Spent With Patient Time: Total time managing care of this patient today ____ minutes.
--- NOTE | 2023-11-19 14:21 | MHC.RECOVRN ---
AUDIT-C Brief Intervention Pt had positive screen for unhealthy alcohol use on admission, subsequently met with t/w to discuss alcohol use and recovery supports/options. Pt does not voice concern regarding alcohol use and is aware that drinking at unhealthy levels is known to increase risk of alcohol related health problems. Pt reports rarely drinking alcohol. Pt reports cocaine use, INH, 1-2x monthly, when I have money. Pt reports she buys 8 capsules at a time. Pt reports alcohol use has not impacted health, however, reports she has a pacemaker and is aware of the risks regarding cocaine use. Discussed risk reduction strategies regarding substances. Pt reports her goal is abstinence. Longest period of time in recovery has been 1-2 months. Pt reports daughter is supportive but is not local. Provided pt with written resources including information on inpatient and outpatient treatment, harm reduction, and recovery coaching. Pt is interested in meeting with a recovery agent. Pt plans to meet with recovery agent while inpatient and possibly be referred outpatient. Pt provided with t/w contact information if questions or concerns arise. Denies other questions or concerns at this time.
[2023-11-19 14:30] VITALS: BP 131/77; PULSE 90; RESP 18; O2SAT 98
[2023-11-19 18:14] VITALS: BP 139/83; PULSE 91; RESP 18; O2SAT 96
--- NOTE | 2023-11-19 18:26 | ECG_ITS ---
Test Reason : Chest Pain Blood Pressure : / mmHG Vent. Rate : 083 BPM Atrial Rate : 083 BPM P-R Int : 132 ms QRS Dur : 092 ms QT Int : 458 ms P-R-T Axes : 062 051 070 degrees QTc Int : 538 ms Normal sinus rhythm Minimal voltage criteria for LVH, may be normal variant ( Sokolow-Ramos ) Nonspecific ST abnormality Prolonged QT Abnormal ECG When compared with ECG of 17-NOV-2023 15:15, No significant change was found Referred By: Lissette Mar Electronically Signed By:Rey Bautista
--- NOTE | 2023-11-19 18:30 | ECG_ITS ---
Test Reason : CP Blood Pressure : / mmHG Vent. Rate : 082 BPM Atrial Rate : 082 BPM P-R Int : 138 ms QRS Dur : 094 ms QT Int : 466 ms P-R-T Axes : 061 038 059 degrees QTc Int : 544 ms Normal sinus rhythm Minimal voltage criteria for LVH, may be normal variant ( Sokolow-Ramos ) Prolonged QT Abnormal ECG When compared with ECG of 19-NOV-2023 18:43, No significant change was found Referred By: Lissette Mar Electronically Signed By:Rey Bautista
--- NOTE | 2023-11-19 19:03 | MHC.CARE ---
This leader writer obtained authorization for inpatient admission starting on 11/16. Information is as followed: AUTH NUMBER:[id number] Clinician:?Brianna Rowe Number of Days:?6 starting 11/17/23 last cover day 11/21 Call your [facility] Concurrent Review Department on last covered day. [phone] information was passed to Sana Matos, Marily Rios, and Jocelyn Starks.
[2023-11-19 20:00] VITALS: BP 139/77; PULSE 82; RESP 16; TEMP 36.8; O2SAT 97
[2023-11-19] MEDS: Atorvastatin Calcium 40 MG TABLET PO (20:50)
[2023-11-19] MEDS: Docusate Sodium 100 MG CAPSULE PO (20:51)
[2023-11-20] VITALS (7 sets, daily range): BP systolic 151–165; BP diastolic 88–92; PULSE 86–95; RESP 18; TEMP 36.2–36.9; O2SAT 97–98
--- NOTE | 2023-11-20 06:20 | HO.PSYEVENT2 ---
Documented by User: Lissette Mar APRN 11/20/23 06:22 Event Note Date of Service: 11/19/23 Psych On-Call Event Note: Pt reporting chest pain after evening meal. EKG ordered with no changes since 11/17/23 noted. Time Spent With Patient Time: Total time managing care of this patient today ____ minutes. Documented by User: Pineda Jimenez MD 11/23/23 08:27 Event Note Date of Service: 11/23/23
[2023-11-20] MEDS: Omeprazole 20 MG CAPSULE.DR PO (06:24)
[2023-11-20] MEDS: Torsemide 20 MG TABLET 40 MG PO (08:49)
[2023-11-20] MEDS: Calcium + Vitamin D 250 MG TABLET 500 MG PO ×2 (08:50→20:55)
[2023-11-20] MEDS: FLUoxetine HCl 20 MG CAPSULE PO (08:50)
[2023-11-20] MEDS: Isosorbide Mononitrate 30 MG TAB.ER.24H PO (08:50)
[2023-11-20] MEDS: cefuroxime axetiL 500 MG TABLET PO (08:50)
[2023-11-20] MEDS: Ascorbic Acid 250 MG TABLET PO ×2 (08:51→20:56)
[2023-11-20] MEDS: carvediloL 12.5 MG TABLET 37.5 MG PO ×2 (08:51→20:56)
[2023-11-20] MEDS: hydrALAZINE HCl 10 MG TABLET PO ×3 (08:51→20:56)
[2023-11-20] MEDS: Docusate Sodium 100 MG CAPSULE PO ×2 (08:51→20:56)
--- NOTE | 2023-11-20 09:35 | P.PNPSI_ITS ---
Subjective Subjective Date of Service: 11/20/23 Reason For Visit: depression SI Interim History: met with patient; discussed with team Patient reports good mood, that she is doing well and feeling ready to discharge; denies any depression or anxiety his grateful for help received. Of note patient is with obviously brighter affect and is out and about, social in the milieu. She asked again about letter for support dog. Discussed in detail how her dog is helpful and patient shared that when she is getting close to a panic attack she picks up her dog, pets her and panic subsides; also whenever feeling lonely patient is able to interact with the dog which again staves off lonely feelings. She feels this is a major part of her coping strategy; ostensibly it not only helps her get through the day but helps her to resist cocaine use. Patient found out that her DIGESTION OPERATOR came down with COVID and asked for a COVID test which was negative she complained of chest pain last night but EKG consistent with prior EKGs and chest pain fully resolved and remain so. Mental Status Exam Mental Status Exam Narrative: Pt is alert and oriented; behavior is cooperative, calm, friendly; patient is not in distress; dressed in hospital attire, adequately groomed; mood is described as good and affect congruent, bright, calm; eye contact appropriate; Speech is normal rate, volume and prosody and not pressured; no psychomotor retardation present; thought process is organized and goal directed; Thought content is on feeling better and discharge; otherwise pertinent to relevant topics and without any delusional content, paranoid ideations or grandiosity; no SI; no HI. No AVH and There is no evidence of perceptual disturbance. Patients insight and judgment fair. Diagnostics Vital Signs (24Hr): Vital Signs - 24 hr 11/19/23 14:30 11/19/23 18:14 11/19/23 20:00 Temperature 98.2 F Pulse Rate 90 91 82 Respiratory Rate 18 18 16 Blood Pressure 131/77 139/83 139/77 Pulse Oximetry 98 96 97 Oxygen Delivery Method Room Air Room Air Room Air 11/20/23 08:00 11/20/23 08:49 11/20/23 08:50 Temperature 97.1 F Pulse Rate 86 Respiratory Rate Blood Pressure 151/88 H 151/88 H 151/88 H Pulse Oximetry 97 Oxygen Delivery Method Room Air 11/20/23 08:51 Temperature Pulse Rate Respiratory Rate Blood Pressure 151/88 H Pulse Oximetry Oxygen Delivery Method BMI result Body Mass Index 17.9 Labs 11/16/23 14:26 11/18/23 07:55 Medications Medications Current Medications Acetaminophen (Acetaminophen 325 Mg Tablet) 650 mg PO Q6H PRN PRN Reason: Headache/Pain Mild Scale (1-3) Al Hydroxide/Mg Hydroxide (Magnesium Hydrox/Alum Hydrox 30 Ml Oral.Susp) 30 ml PO Q6H PRN PRN Reason: Heartburn/Nausea Albuterol Sulfate (Albuterol Sulfate 90 Mcg 8 Gm Inhaler) 2 puff INHALE RQ4H PRN PRN Reason: Shortness Of Breath Ascorbic Acid (Ascorbic Acid 250 Mg Tablet) 250 mg PO BID [facility] Last Admin: 11/20/23 08:51 Dose: 250 mg Atorvastatin Calcium (Atorvastatin Calcium 40 Mg Tablet) 40 mg PO BEDTIME [facility] Last Admin: 11/19/23 20:50 Dose: 40 mg Calcium Carbonate/Cholecalciferol (Calcium + Vitamin D 250 Mg Tablet) 500 mg PO BID [facility] Last Admin: 11/20/23 08:50 Dose: 500 mg Carvedilol (Carvedilol 12.5 Mg Tablet) 37.5 mg PO BID [facility]; Protocol Last Admin: 11/20/23 08:51 Dose: 37.5 mg Cefuroxime Axetil (Cefuroxime Axetil 500 Mg Tablet) 500 mg PO DAILY [facility] Stop: 11/22/23 09:01 Last Admin: 11/20/23 08:50 Dose: 500 mg Docusate Sodium (Docusate Sodium 100 Mg Capsule) 100 mg PO BID [facility] Last Admin: 11/20/23 08:51 Dose: 100 mg Fluoxetine HCl (Fluoxetine Hcl 20 Mg Capsule) 20 mg PO DAILY [facility] Last Admin: 11/20/23 08:50 Dose: 20 mg Fluticasone/Vilanterol (Fluticasone/Vilanterol 100/25 Blst.W.Dev) 1 puff INHALE DAILY [facility] Last Admin: 11/19/23 09:30 Dose: 1 puff Hydralazine HCl (Hydralazine Hcl 10 Mg Tablet) 10 mg PO TID [facility]; Protocol Last Admin: 11/20/23 08:51 Dose: 10 mg Isosorbide Mononitrate (Isosorbide Mononitrate 30 Mg Tab.Er.24h) 30 mg PO DAILY [facility]; Protocol Last Admin: 11/20/23 08:50 Dose: 30 mg Magnesium Hydroxide (Milk Of Magnesia 30 Ml Oral.Susp) 30 ml PO DAILY PRN PRN Reason: Constipation Nicotine (Nicotine 21 Mg Patch.Td24) 21 mg TRANSDERMA DAILY PRN PRN Reason: smoking cessation Nicotine Polacrilex (Nicotine Polacrilex 2 Mg Gum) 4 mg BUCCAL Q2H PRN PRN Reason: Nicotine Cravings Olanzapine (Olanzapine 2.5 Mg Tablet) 2.5 mg PO TID PRN PRN Reason: agitation Omeprazole (Omeprazole 20 Mg Capsule.Dr) 20 mg PO DAILY@0630 [facility] Last Admin: 11/20/23 06:24 Dose: 20 mg Torsemide (Torsemide 20 Mg Tablet) 40 mg PO DAILY [facility]; Protocol Last Admin: 11/20/23 08:49 Dose: 40 mg Trazodone HCl (Trazodone Hcl 50 Mg Tablet) 50 mg PO BEDTIME [facility]X1 PRN PRN Reason: Insomnia Last Admin: 11/17/23 20:56 Dose: 50 mg Allergies Allergies Allergy/AdvReac Type Severity Reaction Status Date / Time Iodinated Contrast Media Allergy Severe ANGIOEDEMA Verified 11/16/23 13:30 [CONTRAST,IV] Assessment & Plan Assessment & Plan (1) MDD (major depressive disorder), recurrent severe, without psychosis: Status: Acute Code(s): F33.2 - Major depressive disorder, recurrent severe without psychotic features (2) Cocaine use disorder: Status: Acute Code(s): F14.10 - Cocaine abuse, uncomplicated (3) Urinary tract infection: Status: Acute Code(s): N39.0 - Urinary tract infection, site not specified (4) Heart failure with reduced ejection fraction: Status: Acute Code(s): I50.20 - Unspecified systolic (congestive) heart failure (5) CAD (coronary artery disease): Status: Acute Code(s): I25.10 - Atherosclerotic heart disease of [place] coronary artery without angina pectoris (6) Cardiomyopathy: Status: Acute Code(s): I42.9 - Cardiomyopathy, unspecified (7) Stented coronary artery: Status: Acute Code(s): Z95.5 - Presence of coronary angioplasty implant and graft Plan Patient seen with site interpreter Patient is a 68-year-old female, Urdu-speaking with history of depression, cocaine abuse and multiple medical comorbidities including: -asthma, HTN, HLD, cardiomyopathy, ICD/defibrillator, CAD, HF with reduced EF, history of prolonged QTC, GERD, Pyelonephritis and likely CKD given chronically elevated creatinine. -on admission, UA positive for UTI and started on Ceftin She presents via her personal driver for depression and suicidality with plan to take her dog and for both of them to be killed by an automobile, in the face of months of continued depression and daily crack cocaine abuse (when she has the money). Patient says she has been depressed for months; she takes her cardiac medications but she has not sure if she takes her medication for depression. Patient says that for the past several weeks she has been more depressed and using crack cocaine daily; she drinks about 1-2 drinks a day but no more. Patient said she became suicidal and I was going to grab my dog and kill myself and my dog traffic... Because of this her DIGESTION OPERATOR brought her to the hospital. Formulation/clinical reasoning: Patient has history of depression and as an outpatient has been prescribed both fluoxetine and mirtazapine; she has not sure how often she takes them. Depression is clearly worsened by ongoing crack cocaine abuse and intermittent adherence to antidepressants. Patient has significant cardiac history, including history of and currently prolonged QTC. While SSRIs can also prolong QTC, this medication (as well as Remeron) is prescribed for her as an outpatient, of which her scrap iron cutter is aware (reviewed cardiology office visits and both fluoxetine and mirtazapine at these doses are listed in her medication regimen). Because they are used with the knowledge of her scrap iron cutter and since she reports not them regularly (meeting if she were to take them regularly that could prove effective), they remain the best option to treat her depression and anxiety. -will discuss substance treatment options; patient is putting herself in significant risk by abusing crack cocaine given her current cardiac complications -discussed antidepressants with patient who agrees to continue taking them now -magazine writer rechecked EKG and QTC remains prolonged; will continue to monitor however this appears to be chronic Hospital course: 11/17 patient reports mood is better. To Type Disk Quality Control Supervisor it seems that coming down from crack cocaine binge had a lot to do with her depression and now that this has passed she is feeling better, however patient does not think this is what occurs and instead says she mostly deals with anxiety. However she agrees that since she is feeling better to leave medications as they are for now. Patient endorsed hearing AH this morning but says it only happens in the morning times. It is unclear if this was happening while she was coming out of sleep or if she was fully awake at the time. -repeat labs and BUN/creatinine improved -will repeat EKG tomorrow to monitor for QTC 11/18 feeling better; clarified she was not taking remeron or Fluoxetine consistently but now on them says they are helping; discussed meds further and pt says she never really took them and does not know why she's on 2 antidepressants. She denies trouble with sleeping or appetite and so agrees to dc Remeron and to see if Fluoxetine is enough to help w/ her anxiety. Discussed substance abuse and she understands risks of cocaine abuse given heart issues. -discussed increasing outpt support 11/19 Patient reports good mood, that she is doing well and feeling ready to discharge; denies any depression or anxiety his grateful for help received. She asked again about letter for support dog. Discussed in detail how her dog is helpful and patient shared that when she is getting close to a panic attack she picks up her dog, pets her and panic subsides; also whenever feeling lonely patient is able to interact with the dog which again staves off lonely feelings. She feels this is a major part of her coping strategy; ostensibly it not only helps her get through the day but helps her to resist cocaine use. -Patient found out that her DIGESTION OPERATOR came down with COVID and asked for a COVID test which was negative -she complained of chest pain last night but EKG consistent with prior EKGs and chest pain fully resolved and remain so. Patient is doing much better and affect is noticeably brighter; she is out and about in the milieu, appropriately interacting with peers and staff and has remained in good behavioral and impulse control. Her symptoms have resolved and She is requesting discharge. Patient has outpatient providers established and is being set up with an adult daycare program to help with increased structure. Patient is not in imminent risk for harm to self or others; she is appropriate to return to the community for care and request for discharge honored. Plan: CV Q 15 minute checks Ceftin 500 mg daily for 7 days to treat UTI; started in ED Continue fluoxetine 20 mg capsule daily DC mirtazapine 30 mg PO bedtime?(pt has not been (or ever) taking either antidepressant and not had trial of monotherapy) Otherwise, continue home meds: albuterol sulfate 90 mcg/actuation?? ascorbic acid (vitamin C) 250 mg PO BID atorvastatin 40 mg tablet PO bedtime calcium carbonate 600 mg-vitamin? 1 tab PO BID D3 5 mcg (200 unit) tablet(Calcium 600 + D(3))? fluticasone 250 mcg-salmeterol 50? 1 puff inhalation BID hydralazine 10 mg PO TID isosorbide mononitrate Xr 30 mg PO QAM pantoprazole 40 mg tablet,delayed daily torsemide 40mg PO QAM . Patient educated on: diagnosis, medication risk/benefits, substance abuse and medical condition Informed Consent: understands Reason for continued inpatient stay Substantial Risk for: stable for discharge Time Spent With Patient Time: Total time managing care of this patient today ____ minutes.
[2023-11-20] MEDS: Fluticasone/Vilanterol 100/25 BLST.W.DEV 1 PUFF INHALE (12:44)
[2023-11-20 13:36] LABS: Influenza A PCR NEGATIVE (Negative); Influenza B PCR NEGATIVE (Negative); Resp Syncy Virus RNA Qual PCR NEGATIVE (Negative); SARS COV2 PCR INHOUSE NEGATIVE (Negative)
--- NOTE | 2023-11-20 15:56 | PM.PSYDC ---
DS: Providers Provider Date of Service: 11/21/23 Date of admission: 11/17/23 10:04 Date of discharge: 11/21/23 Primary care physician: Kianna Nunez MD Attending physician on admission: Donovan Edmond Consults: 11/17/23 13:48 Addiction Medicine Routine Consulting Provider: Addiction Covering Reason for consultation: ETOH, Crack/cocaine use Has provider been notified: Yes Attending physician on discharge: Donovan Edmond DS: Diagnosis Discharge Diagnosis (1) MDD (major depressive disorder), recurrent severe, without psychosis: Status: Acute (2) Cocaine use disorder: Status: Acute (3) Urinary tract infection: Status: Acute (4) Heart failure with reduced ejection fraction: Status: Acute (5) CAD (coronary artery disease): Status: Acute (6) Cardiomyopathy: Status: Acute (7) Stented coronary artery: Status: Acute DS: Medications Discharge Medications Home Medications: Home Medications ?Medication ?Instructions ?Recorded ?Confirmed albuterol sulfate 90 mcg/actuation 2 puff inhalation Q4-6H PRN 05/13/20 11/16/23 aerosol inhaler (ProAir HFA) Shortness Of Breath ascorbic acid (vitamin C) 250 mg 250 mg PO BID 05/13/20 11/16/23 tablet atorvastatin 40 mg tablet 40 mg PO BEDTIME 05/13/20 11/16/23 calcium carbonate 600 mg-vitamin 1 tab PO BID 05/13/20 11/16/23 D3 5 mcg (200 unit) tablet (Calcium 600 + D(3)) fluticasone 250 mcg-salmeterol 50 1 puff inhalation BID 04/26/21 11/16/23 mcg/dose blistr powdr for inhalation (Advair Diskus) hydralazine 10 mg tablet 10 mg PO TID 10/12/22 11/16/23 isosorbide mononitrate 30 mg 30 mg PO QAM 10/12/22 11/16/23 tablet,extended release 24 hr pantoprazole 40 mg tablet,delayed 40 mg PO DAILY 10/12/22 11/16/23 release torsemide 20 mg tablet 40 mg PO QAM 10/12/22 11/16/23 Previous Rx's ?Medication ?Instructions ?Recorded docusate sodium 100 mg capsule 100 mg PO BID #60 caps 01/13/21 carvedilol 25 mg tablet 37.5 mg (1.5 x 25 mg) PO BID 90 10/17/22 days #270 tabs cefuroxime axetil 500 mg tablet 500 mg PO DAILY 1 day #1 tab 11/20/23 fluoxetine 20 mg capsule 20 mg PO DAILY 30 days #30 caps 11/20/23 Mental Status Exam Mental Status Exam Narrative: Pt is alert and oriented; behavior is cooperative, calm, friendly; patient is not in distress; dressed in hospital attire, adequately groomed; mood is described as good and affect congruent, bright, calm; eye contact appropriate; Speech is normal rate, volume and prosody and not pressured; no psychomotor retardation present; thought process is organized and goal directed; Thought content is on feeling better and discharge; otherwise pertinent to relevant topics and without any delusional content, paranoid ideations or grandiosity; no SI; no HI. No AVH and There is no evidence of perceptual disturbance. Patients insight and judgment fair. Data Data Completed and Pending Completed studies during hospitalization [Text1]: 11/16/23 11/16/23 11/18/23 14:05 14:26 07:55 WBC 8.0 RBC 3.72 L Hgb 11.7 L Hct 34.6 L MCV 93.0 MCH 31.5 MCHC 33.8 RDW 15.4 Plt Count 212 MPV 9.5 Absolute Nucleated RBC 0.000 Nucleated RBC % (auto) 0.0 Sodium 143 145 Potassium 3.7 4.4 Chloride 108 109 H Carbon Dioxide 23 26 Anion Gap 16 14 BUN 38 H 41 H Creatinine 3.01 H 2.62 H Estim Creat Clear Calc 18.9 13.7 Estimated GFR 15 18 Random Glucose 126 H 88 Estimat Average Glucose 103 Hemoglobin A1c % 5.2 Calcium 9.5 D 9.5 Magnesium 2.2 Total Bilirubin 0.4 AST 21 ALT 14 Alkaline Phosphatase 71 Total Protein 7.5 Albumin 4.2 Triglycerides 50 Cholesterol 134 LDL Cholesterol, Calc 63 HDL Cholesterol 61 Urine Color Yellow Urine Appearance Cloudy Urine pH 6.5 Ur Specific [place] 1.015 Urine Protein 100 (2+) H Urine Glucose (UA) Negative Urine Ketones Negative Urine Blood Trace H Urine Nitrite Positive H Ur Leukocyte Esterase Large (3+) H Urine RBC 6-10 H Urine WBC >50 H Ur Squamous Epith Cells 0-2 Urine Bacteria 4+ Hyaline Casts 0-2 Urine Opiates Screen Not Detected Ur Buprenorphine Scrn Not Detected Ur Oxycodone Screen Not Detected Urine Methadone Screen Not Detected Urine Fentanyl Screen Not Detected Ur Barbiturates Screen Not Detected Ur Phencyclidine Scrn Not Detected Ur Amphetamines Screen Not Detected U Benzodiazepines Scrn Not Detected Urine Cocaine Screen POSITIVE H U Marijuana (THC) Screen POSITIVE H Ethyl Alcohol < 10 Influenza Type A (PCR) Influenza Type B (PCR) RSV RNA Qual (PCR) SARS-CoV-2 RNA (RT-PCR) 11/20/23 12:50 WBC RBC Hgb Hct MCV MCH MCHC RDW Plt Count MPV Absolute Nucleated RBC Nucleated RBC % (auto) Sodium Potassium Chloride Carbon Dioxide Anion Gap BUN Creatinine Estim Creat Clear Calc Estimated GFR Random Glucose Estimat Average Glucose Hemoglobin A1c % Calcium Magnesium Total Bilirubin AST ALT Alkaline Phosphatase Total Protein Albumin Triglycerides Cholesterol LDL Cholesterol, Calc HDL Cholesterol Urine Color Urine Appearance Urine pH Ur Specific [place] Urine Protein Urine Glucose (UA) Urine Ketones Urine Blood Urine Nitrite Ur Leukocyte Esterase Urine RBC Urine WBC Ur Squamous Epith Cells Urine Bacteria Hyaline Casts Urine Opiates Screen Ur Buprenorphine Scrn Ur Oxycodone Screen Urine Methadone Screen Urine Fentanyl Screen Ur Barbiturates Screen Ur Phencyclidine Scrn Ur Amphetamines Screen U Benzodiazepines Scrn Urine Cocaine Screen U Marijuana (THC) Screen Ethyl Alcohol Influenza Type A (PCR) NEGATIVE Influenza Type B (PCR) NEGATIVE RSV RNA Qual (PCR) NEGATIVE SARS-CoV-2 RNA (RT-PCR) NEGATIVE 11/16/23 Unknown Urine clean catch - Urine morgan top Urine Culture - Final Escherichia coli DS: Summary Hospital Course Hospital Course: HPI: Patient seen with blunger Patient is a 68-year-old female, [place]-speaking with history of depression, cocaine abuse and multiple medical comorbidities including: -asthma, HTN, HLD, cardiomyopathy, ICD/defibrillator, CAD, HF with reduced EF, history of prolonged QTC, GERD, Pyelonephritis and likely CKD given chronically elevated creatinine. -on admission, UA positive for UTI and started on Ceftin She presents via her beach attendant for depression and suicidality with plan to take her dog and for both of them to be killed by an automobile, in the face of months of continued depression and daily crack cocaine abuse (when she has the money). Patient says she has been depressed for months; she takes her cardiac medications but she has not sure if she takes her medication for depression. Patient says that for the past several weeks she has been more depressed and using crack cocaine daily; she drinks about 1-2 drinks a day but no more. Patient said she became suicidal and I was going to grab my dog and kill myself and my dog traffic... Because of this her STAFF AUDITOR brought her to the hospital. Formulation/clinical reasoning: Patient has history of depression and as an outpatient has been prescribed both fluoxetine and mirtazapine; she has not sure how often she takes them. Depression is clearly worsened by ongoing crack cocaine abuse and intermittent adherence to antidepressants. Patient has significant cardiac history, including history of and currently prolonged QTC. While SSRIs can also prolong QTC, this medication (as well as Remeron) is prescribed for her as an outpatient, of which her warehouse logistics manager is aware (reviewed cardiology office visits and both fluoxetine and mirtazapine at these doses are listed in her medication regimen). Because they are used with the knowledge of her warehouse logistics manager and since she reports not them regularly (meeting if she were to take them regularly that could prove effective), they remain the best option to treat her depression and anxiety. -will discuss substance treatment options; patient is putting herself in significant risk by abusing crack cocaine given her current cardiac complications -discussed antidepressants with patient who agrees to continue taking them now -service writer advisor rechecked EKG and QTC remains prolonged; will continue to monitor however this appears to be chronic Hospital course: On admission patient was depressed and anxious but mostly anxious. Suicidality had resolved. She once complain of AH but this was mood congruent. Patient was continued on her home medications. Initially she was unsure if she had been taking her prescribed Remeron and fluoxetine and both were continued; later she realized she's never taken either and since she denied any troubles with sleep or appetite she agreed to continue with Fluoxetine. Pt's depression and anxiety full resolved; her affect was noticeably brighter and she was social, in the milue pleasantly interacting with staff and peers. Discussed cocaine abuse and pt knows well how dangerous this is given cardiac comborbidities; she did not want a program for substance abuse but agreed to adult day care for increased day structure; she reports that her dog is very helpful for her anxiety and panic attacks and says that when she is near panic, picking up/petting the dog averts a panic attack; same when she's feeling lonely which helps her avoid darker thoughts. She feels this is a major part of her coping strategy; ostensibly it not only helps her get through the day but helps her to resist cocaine use and pt asked for emotional support dog. Pt remained in good mood, friendly, calm, in good behavioral and impulse control and interacting appropriately. She felt she was ready to return home and asked for discharge. Patient has outpatient support in place. She is returning to live her own apartment which she manages successfully in the community. She is not in imminent risk for harm to self or others; she is appropriate to return to the community for care and request for discharge honored. Time spent discussing smoking cessation with patient: 3 to 10 minutes Status at Discharge Functional status at discharge: independent ambulation Overall status at discharge: patient is back to baseline Time Spent with Patient Time attestation: Total time managing care of this patient today __40__ minutes. Time spent: Greater than 30 minutes Discharge Plan Discharge Anticipated Discharge Date/Time: 11/21/23 11:00 Patient Disposition: Home, Self-Care Discharge Diagnosis: MDD, recurrent, severe with psychotic features, in full remission Referrals: [facility] Medication Manage. w Dr. Mcgowan [Other] - 11/29/23 10:30 am [facility] Behavioral Health/Therapy [Other] - 1 Day (They will follow up with you today to talk about ways to help reduce your stress. I spoke with Adriana Smart.) [facility] [Other] - 3-5 Days (Call them to set up an appt to visit. ) Kianna Nunez MD [Primary Care Provider] - 12/03/23 1:15 pm ([facility]act pre-op appt. ) Discharge Medications: New cefuroxime axetil 500 mg Tablet 500 mg PO DAILY 1 Days Qty: 1 0RF Continued docusate sodium 100 mg capsule 100 mg PO BID Qty: 60 1RF carvedilol 25 mg tablet 37.5 mg PO BID 90 Days Qty: 270 3RF Rx Instructions: must administer with a meal/food atorvastatin 40 mg Tablet 40 mg PO BEDTIME calcium carbonate-vitamin D3 [Calcium 600 + D(3)] 600 mg(1,500mg) -200 unit Tablet 1 tab PO BID ascorbic acid (vitamin C) 250 mg Tablet 250 mg PO BID albuterol sulfate [ProAir HFA] 90 mcg/actuation Hfa Aerosol Inhaler 2 puff INHALATION Q4-6H PRN (Reason: Shortness Of Breath) fluticasone propion-salmeterol [Advair Diskus] 250-50 mcg/dose blister with device 1 puff inhalation BID fluoxetine 20 mg Capsule 20 mg PO DAILY 30 Days Qty: 30 1RF hydralazine 10 mg tablet 10 mg PO TID isosorbide mononitrate 30 mg tablet extended release 24 hr 30 mg PO QAM torsemide 20 mg tablet 40 mg PO QAM pantoprazole 40 mg tablet,delayed release (DR/EC) 40 mg PO DAILY Discontinued mirtazapine 30 mg tablet 30 mg PO BEDTIME Discharge Orders: Discharge Order (Routine); Ordered 11/21/23 Ordered By: Donovan Edmond Diet: per outpt PCP Activity on Discharge: As tolerated Stand Alone Forms: Patient Portal Discharge page, Community Support Print Language: [place] Activity Restrictions/Additional Instructions: You were evaluated in the emergency department today for depression. Your urinalysis showed evidence of urinary tract infection and you are being treated with antibiotics, please take the full course as prescribed. Follow-up with your primary care provider. Return to the emergency department if you develop worsening pain, persistent vomiting, fever 100.4? F or greater, back or flank pain or any other concerning symptoms. Care Plan Goals: Maintain mood and safe behaviors Take medications as prescribed Continue to pursue sobriety Practice coping skills Continue with outpatient providers and reach out to them as needed Health Concerns: Mood stability and behaviors Sobriety Plan of Treatment: Follow up with your PCP, psychiatric provider and other outpatient providers regarding above concerns Take medications as prescribed Assessment: Risk assessment at time of discharge:? Patient was interviewed prior to discharge and found to be fully oriented and without any SI or HI. Patient has improved insight and judgment and wants to continue treatment. Patient is not in imminent risk of harm to self or others and has a safety plan that includes presenting to the closest ER or calling 911 if feeling unsafe.? Patient has been observed closely by nursing and unit staff throughout admission; patient has not engaged in any behaviors that suggest dangerousness to self or others and has demonstrated appropriate behaviors and impulse control Patient Instructions: Depression (DC), Urinary Tract Infection in Older Adults (ED) Discharge Date/Time: 11/21/23 11:00
[2023-11-20] MEDS: Atorvastatin Calcium 40 MG TABLET PO (20:56)
[2023-11-21] MEDS: Omeprazole 20 MG CAPSULE.DR PO (06:02)
[2023-11-21 08:00] VITALS: BP 152/77; PULSE 85; RESP 18; TEMP 37.1; O2SAT 98
[2023-11-21] MEDS: Docusate Sodium 100 MG CAPSULE PO (09:03)
[2023-11-21] MEDS: hydrALAZINE HCl 10 MG TABLET PO (09:03)
[2023-11-21] MEDS: Torsemide 20 MG TABLET 40 MG PO (09:03)
[2023-11-21] MEDS: Isosorbide Mononitrate 30 MG TAB.ER.24H PO (09:03)
[2023-11-21] MEDS: Calcium + Vitamin D 250 MG TABLET 500 MG PO (09:03)
[2023-11-21] MEDS: carvediloL 12.5 MG TABLET 37.5 MG PO (09:03)
[2023-11-21] MEDS: cefuroxime axetiL 500 MG TABLET PO (09:03)
[2023-11-21] MEDS: Ascorbic Acid 250 MG TABLET PO (09:04)
[2023-11-21] MEDS: FLUoxetine HCl 20 MG CAPSULE PO (09:04)
[2023-11-21] MEDS: Fluticasone/Vilanterol 100/25 BLST.W.DEV 1 PUFF INHALE (09:08)
== END 2023-11-21 11:00 | disposition home or self-care (01) | DRG 885 ==
LOC: HO.ED 11-17 07:43 → HO.PM5 11-17 11:12
PROVIDERS: Emergency Medicine; Admitting Provider Psychiatry & Neurology Psychiatry; Emergency Provider Emergency Medicine Emergency Medical Services; PCP Family Medicine; Visit Provider Psychiatry & Neurology Psychiatry
DX: F33.2 Major depressive disorder, recurrent severe without psychotic features (principal); R45.851 Suicidal ideations; N39.0 Urinary tract infection, site not specified; I50.22 Chronic systolic (congestive) heart failure; N18.9 Chronic kidney disease, unspecified; I25.10 Atherosclerotic heart disease of native coronary artery without angina pectoris; K21.9 Gastro-esophageal reflux disease without esophagitis; F14.90 Cocaine use, unspecified, uncomplicated; Z95.810 Presence of automatic (implantable) cardiac defibrillator; Z95.5 Presence of coronary angioplasty implant and graft; F17.210 Nicotine dependence, cigarettes, uncomplicated; Z71.6 Tobacco abuse counseling; Z91.041 Radiographic dye allergy status; Z20.822 Contact with and (suspected) exposure to COVID-19; Z79.899 Other long term (current) drug therapy
CPT/HCPCS: 0241U; 36415; 80048; 80053; 80061; 80307; 81001; 83036; 83735; 85027; 87086; 87088; 87186; 93005; 99285; S9485

== ENCOUNTER → 2023-11-16 14:20 | Outpatient (BNV) | payer OTHER, SELFPAY | PROVIDERS: Admitting Provider Psychiatry & Neurology Psychiatry; Emergency Provider Emergency Medicine Emergency Medical Services; PCP Family Medicine; Visit Provider Internal Medicine | DX: R94.31 Abnormal electrocardiogram [ECG] [EKG] (principal) | CPT/HCPCS: 93010 ==

== ENCOUNTER 2023-11-17 10:04 | Outpatient (BNV) | payer OTHER, SELFPAY | END 2023-11-19 18:26 | PROVIDERS: Admitting Provider Psychiatry & Neurology Psychiatry; Emergency Provider Emergency Medicine Emergency Medical Services; PCP Family Medicine; Visit Provider Internal Medicine Cardiovascular Disease | DX: R94.31 Abnormal electrocardiogram [ECG] [EKG] (principal) | CPT/HCPCS: 93010 ==

== ENCOUNTER 2023-11-17 10:04 | Outpatient (BNV) | payer OTHER, SELFPAY | END 2023-11-17 15:15 | PROVIDERS: Admitting Provider Psychiatry & Neurology Psychiatry; Emergency Provider Emergency Medicine Emergency Medical Services; PCP Family Medicine; Visit Provider Internal Medicine | DX: R94.31 Abnormal electrocardiogram [ECG] [EKG] (principal) | CPT/HCPCS: 93010 ==

== ENCOUNTER → 2023-11-17 10:04 | Outpatient (BNV) | payer OTHER, SELFPAY | PROVIDERS: Admitting Provider Psychiatry & Neurology Psychiatry; Emergency Provider Emergency Medicine Emergency Medical Services; PCP Family Medicine; Visit Provider Psychiatry & Neurology Psychiatry | DX: F33.2 Major depressive disorder, recurrent severe without psychotic features (principal); F14.10 Cocaine abuse, uncomplicated; I50.20 Unspecified systolic (congestive) heart failure; N39.0 Urinary tract infection, site not specified | CPT/HCPCS: 90792; 99231; 99232; 99239; 99499 ==

== ENCOUNTER → 2023-12-25 23:59 | Outpatient (BNV) | payer OTHER, SELFPAY ==
--- NOTE | 2023-12-26 14:36 | MHC.OFFVIS ---
Intake Visit Reasons: Remote ICD check- [facility] Allergies Iodinated Contrast Media [CONTRAST,IV] Allergy (Severe, Verified 11/16/23 13:30) ANGIOEDEMA PFSH Medical History (Updated 11/29/23 @ 00:02 by Background Daemon) Cocaine use disorder Cocaine use disorder in remission MDD (major depressive disorder), recurrent severe, without psychosis Hx of sepsis History of asthma Hyperlipidemia HTN (hypertension) Cardiomyopathy ICD (implantable cardioverter-defibrillator) in place CAD (coronary artery disease) Chronic heart failure with reduced ejection fraction and diastolic dysfunction GERD (gastroesophageal reflux disease) Surgical History (Updated 11/29/23 @ 00:02 by Background Daemon) Hx of cystoscopy H/O hemorrhoidectomy Stented coronary artery Hx of colonoscopy Family History Father Diabetes HTN (hypertension) Mother Diabetes HTN (hypertension) Sister Throat cancer Social History Household Members: None Housing: Apartment Do you presently have visiting nurse or other home services: Yes (ELECTRIC SEALING MACHINE 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) Unable to assess alcohol history related to: Unable to respond Alcohol intake: never Comment: sleeping Patient Tobacco Use Status: Current someday Tobacco user Tobacco use type: Cigarette Cigarettes Per Day: 1 Years Smoked: 38 e-Cigarette/Vaping Use: Never Used Second Hand Smoke Exposure: Yes Substance Use Type: Crack/Cocaine and Marijuana Advance Directives Date on File: 04/26/21 service: No Current occupational status: unemployed and disabled Sexual orientation: Straight/Heterosexual Office Procedures Cardiac Device Check Cardiac Device Check Details: Remote ICD report generated 12/25/2023. ICD function is adequate [id number] Cardiac Interrogation, implant defibrillator w/interim Procedure code (CPT) selection complete Assessment & Plan Assessment & Plan (1) ICD (implantable cardioverter-defibrillator) in place: Code(s): Z95.810 - Presence of automatic (implantable) cardiac defibrillator Category: Medical Plan: See above Coding Level of Care Code Procedure Only Diagnoses ICD (implantable cardioverter-defibrillator) in place Z95.810 CPT Codes Cardiac Device Check - Cardiac Device 13: [id number] Cardiac Interrogation, implant defibrillator w/interim ([id number])
== END ==
PROVIDERS: PCP Family Medicine; Visit Provider Internal Medicine Cardiovascular Disease
DX: Z45.02 Encounter for adjustment and management of automatic implantable cardiac defibrillator (principal)
CPT/HCPCS: 93295

== ENCOUNTER 2024-03-04 14:28 | Outpatient (AMB) | payer OTHER, SELFPAY ==
--- NOTE | 2024-03-04 14:29 | A.OFFVIS_ITS ---
Vital Signs 03/04/24 14:35 Height 5 ft 4 in Weight 97 lb 0.054 oz BMI 16.6 BP 104/66 Blood Pressure Location Lt brachial Position Sitting Pulse 80 Intake Visit Reasons: [address] [facility] Intake Note: 6 month follow-up with [facility] check feeling good Seed Corn Manager Production Required: Yes Seed Corn Manager Production Services: Seed Corn Manager Production Offered & Declined Scale Model Maker: Scale Model Maker Present Accompanied by: Daughter Allergies Iodinated Contrast Media [CONTRAST,IV] Allergy (Severe, Verified 11/16/23 13:30) ANGIOEDEMA Medication List - Last Reconciled 03/04/24 by Kleber Liu MD albuterol sulfate 90 mcg/actuation (ProAir HFA) 2 puffs inhalation Q4-6H PRN ascorbic acid (vitamin C) 250 mg PO BID atorvastatin 40 mg PO BEDTIME calcium carbonate-vitamin D3 600 mg-5 mcg (200 unit) (Calcium 600 + D(3)) 1 tab PO BID carvedilol 37.5 mg (1.5 x 25 mg) PO BID 90 days cefuroxime axetil 500 mg PO DAILY 1 day docusate sodium 100 mg PO BID fluoxetine 20 mg PO DAILY 30 days fluticasone propion-salmeterol 250-50 mcg/dose (Advair Diskus) 1 puff inhalation BID hydralazine 10 mg PO TID isosorbide mononitrate ER 30 mg PO QAM pantoprazole 40 mg PO DAILY torsemide 40 mg PO QAM HPI Comments Details: Georgiana comes for follow-up, accompanied by granddaughter who acts as order make up clerk. Patient was admitted in November with psychiatric decompensation at that time U tox was positive for cocaine and marijuana. Since then she has been doing well. She denies any cardiac symptoms. She says she does not use cocaine anymore. She takes all her medications. Denies any exertional chest pain or shortness of breath. Denies any orthopnea, PND, leg edema. Denies any prolonged palpitation, irregular heartbeat, syncope, ICD discharge. [facility] Medical History Cocaine use disorder Cocaine use disorder in remission MDD (major depressive disorder), recurrent severe, without psychosis Hx of sepsis History of asthma Hyperlipidemia HTN (hypertension) Cardiomyopathy ICD (implantable cardioverter-defibrillator) in place CAD (coronary artery disease) Chronic heart failure with reduced ejection fraction and diastolic dysfunction GERD (gastroesophageal reflux disease) Surgical History Hx of cystoscopy H/O hemorrhoidectomy Stented coronary artery Hx of colonoscopy Family History Father Diabetes HTN (hypertension) Mother Diabetes HTN (hypertension) Sister Throat cancer Social History Household Members: None Housing: Apartment Do you presently have visiting nurse or other home services: Yes (DISPOSITION CLERK 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) Unable to assess alcohol history related to: Unable to respond Alcohol intake: never Comment: sleeping Patient Tobacco Use Status: Current someday Tobacco user Tobacco use type: Cigarette Cigarettes Per Day: 1 Years Smoked: 38 e-Cigarette/Vaping Use: Never Used Second Hand Smoke Exposure: Yes Substance Use Type: Crack/Cocaine and Marijuana Advance Directives Date on File: 04/26/21 service: No Current occupational status: unemployed and disabled Sexual orientation: Straight/Heterosexual Review of Systems Const Denies chills, Denies fatigue, Denies fever(s), Denies frequent falls, Denies weakness, Denies weight gain and Denies weight loss ENT Denies dizziness Card Denies chest pain, Denies leg edema, Denies lightheadedness, Denies palpitations, Denies dyspnea, Denies dyspnea on exertion, Denies orthopnea and Denies other (loss of consciousness) Resp Denies cough, Denies dyspnea and Denies dyspnea on exertion GI Denies hematochezia and Denies change in stool character Musc Denies abnormal gait, Denies muscle weakness, Denies numbness, Denies radiating pain into limb and Denies tingling Neuro Denies abnormal gait, Denies dizziness, Denies frequent falls, Denies numbness, Denies tingling and Denies weakness Endo Denies fatigue and Denies palpitations Physical Exam Vital Signs: Last Vital Signs Pulse 80 03/04/24 14:35 BP 104/66 03/04/24 14:35 BMI result Body Mass Index 16.6 Const General: cooperative, comfortable, no acute distress, alert and awake Nutritional Appearance: thin Orientation/consciousness: patient oriented x3 Limitations: no limitations Neck Neck: Yes trachea midline, Yes supple and Yes no JVD Resp Effort & Inspection: normal respiratory effort Auscultation: clear to auscultation bilaterally Cardio Palpation: abnormal PMI displaced PMI Rate: regular rate Rhythm: regular rhythm Heart sounds: S1 normal heart sound present and S2 normal heart sound present GI Auscultation: normal bowel sounds Skin General skin exam: no rashes or lesions noted Neuro General: patient oriented x3 and no focal motor deficits Extrem General: Yes no clubbing, cyanosis or edema Office Procedures Cardiac Device Check Cardiac Device Check Details: Single-chamber [facility] ICD in place. Programmed in VVI at 40 beats per minute. Ventricular pacing thresholds excellent and reprogrammed to enhance battery life. Ventricular sensing is adequate. Pacing lead impedance and shock lead impedance is stable. Battery life is at 9.6 months [id number] Cardiac Device Check, single lead implantable defibrillator Procedure code (CPT) selection complete Assessment & Plan Assessment & Plan (1) Cardiomyopathy: Code(s): I42.9 - Cardiomyopathy, unspecified Category: Medical Plan: Cardiomyopathy, combination ischemic and nonischemic cardiomyopathy with last echocardiogram showed moderately severe LV systolic dysfunction. Will repeat echocardiogram to assess LV systolic and diastolic function. Clinically no signs of congestive heart failure on current therapy. Can you torsemide therapy. Daily weight monitoring avoidance of salt loading was discussed. Continue current neurohormonal modulation with carvedilol. Continue isosorbide and hydralazine therapy given her kidney dysfunction can not tolerate renin angiotensin receptor antagonist. Signs and symptoms of heart failure were discussed. Avoidance of drug use was discussed with her. (2) CAD (coronary artery disease): Code(s): I25.10 - Atherosclerotic heart disease of [place] coronary artery without angina pectoris Category: Medical Plan: CAD with bare metal stent to LAD in 2013. No recurrent symptoms of angina. Avoidance of cocaine was discussed. Continue low-dose aspirin therapy for life. Continue high-intensity statin therapy with target goal LDL less than 70 mg/dL. Lipid panel should be checked on annual basis. Continue aggressive blood pressure control which seems to be well optimized. Maintain activity level as tolerated. Smoking cessation was discussed. (3) ICD (implantable cardioverter-defibrillator) in place: Code(s): Z95.810 - Presence of automatic (implantable) cardiac defibrillator Category: Medical Plan: ICD in place, will follow remotely every 3 months. Follow up in the clinic in 6 months time. Will follow up in the clinic in 6 months time, sooner p.r.n.. Thank you for allowing me to partake in his care Orders: Orders CA echo transthoracic complete Today I42.9 - Cardiomyopathy, unspecified Coding Level of Care Code Est Pt Level 4 (67719) Diagnoses Cardiomyopathy I42.9 CAD (coronary artery disease) I25.10 ICD (implantable cardioverter-defibrillator) in place Z95.810 CPT Codes Cardiac Device Check - Cardiac Device 4: [id number] Cardiac Device Check, single lead implantable defibrillator ([id number])
[2024-03-04 14:35] VITALS: BP 104/66; PULSE 80; BMI 16.6
== END 2024-03-04 14:50 | disposition home or self-care (01) ==
PROVIDERS: PCP Family Medicine; Visit Provider Internal Medicine Cardiovascular Disease
DX: I42.9 Cardiomyopathy, unspecified (principal); I25.10 Atherosclerotic heart disease of native coronary artery without angina pectoris; Z95.810 Presence of automatic (implantable) cardiac defibrillator
CPT/HCPCS: 93282; 99214

== ENCOUNTER → 2024-03-04 14:28 | Outpatient (BNVA) | payer OTHER, SELFPAY | PROVIDERS: PCP Family Medicine; Visit Provider Internal Medicine Cardiovascular Disease | DX: I42.9 Cardiomyopathy, unspecified (principal); I25.10 Atherosclerotic heart disease of native coronary artery without angina pectoris; I10 Essential (primary) hypertension; Z45.02 Encounter for adjustment and management of automatic implantable cardiac defibrillator | CPT/HCPCS: 99212 ==

== ENCOUNTER → 2024-03-25 23:59 | Outpatient (BNV) | payer OTHER, SELFPAY ==
--- NOTE | 2024-04-07 17:19 | MHC.OFFVIS ---
Intake Visit Reasons: Remote ICD check- [facility] Allergies Iodinated Contrast Media [CONTRAST,IV] Allergy (Severe, Verified 11/16/23 13:30) ANGIOEDEMA PFSH Medical History Cocaine use disorder Cocaine use disorder in remission MDD (major depressive disorder), recurrent severe, without psychosis Hx of sepsis History of asthma Hyperlipidemia HTN (hypertension) Cardiomyopathy ICD (implantable cardioverter-defibrillator) in place CAD (coronary artery disease) Chronic heart failure with reduced ejection fraction and diastolic dysfunction GERD (gastroesophageal reflux disease) Surgical History Hx of cystoscopy H/O hemorrhoidectomy Stented coronary artery Hx of colonoscopy Family History Father Diabetes HTN (hypertension) Mother Diabetes HTN (hypertension) Sister Throat cancer Social History Household Members: None Housing: Apartment Do you presently have visiting nurse or other home services: Yes (FUEL CELL ASSEMBLER 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) Unable to assess alcohol history related to: Unable to respond Alcohol intake: never Comment: sleeping Patient Tobacco Use Status: Current someday Tobacco user Tobacco use type: Cigarette Cigarettes Per Day: 1 Years Smoked: 38 e-Cigarette/Vaping Use: Never Used Second Hand Smoke Exposure: Yes Substance Use Type: Crack/Cocaine and Marijuana Advance Directives Date on File: 04/26/21 service: No Current occupational status: unemployed and disabled Sexual orientation: Straight/Heterosexual Office Procedures Cardiac Device Check Cardiac Device Check Details: Remote ICD report generated 03/25/2024. ICD function is adequate [id number] Cardiac Interrogation, implant defibrillator w/interim Procedure code (CPT) selection complete Assessment & Plan Assessment & Plan (1) ICD (implantable cardioverter-defibrillator) in place: Code(s): Z95.810 - Presence of automatic (implantable) cardiac defibrillator Category: Medical Plan: See above Coding Level of Care Code Procedure Only Diagnoses ICD (implantable cardioverter-defibrillator) in place Z95.810 CPT Codes Cardiac Device Check - Cardiac Device 13: [id number] Cardiac Interrogation, implant defibrillator w/interim ([id number])
== END ==
PROVIDERS: PCP Family Medicine; Visit Provider Internal Medicine Cardiovascular Disease
DX: Z45.02 Encounter for adjustment and management of automatic implantable cardiac defibrillator (principal)
CPT/HCPCS: 93295

== ENCOUNTER → 2024-04-01 13:40 | Outpatient (REF) | payer OTHER, SELFPAY ==
--- NOTE | 2024-04-01 13:44 | CA_ITS ---
Transthoracic Echocardiogram Patient (Last, First, Middle): Georgiana Earl, Gender: Female Date of : 1955 Age: 69 Procedure Date: 04/01/2024 Procedure Type: Transthoracic Echocardiogram Location: OP Height: 152.4 cm Weight: 58.97 kg BSA: 1.55 m2 Heart Rate: bpm BP: 120 / 66 mmHg Certified Professional Coder: Referring MD: Kleber Liu MD Symptoms: I42.9 - Cardiomyopathy, unspecified Study Quality: Good ECG Rhythm: Sinus Conclusions: - The left ventricular systolic function is severely decreased. The visually estimated ejection fraction is between 25-30%. - The basal inferior segment is akinetic. - There is mild to moderate aortic valve regurgitation. Findings Left Ventricle Normal left ventricular cavity size. There is normal left ventricular wall thickness. The left ventricular systolic function is severely decreased. The visually estimated ejection fraction is between 25-30%. There is severe global hypokinesis. Evidence suggests grade I (mild) diastolic dysfunction. Wall Motion Rest Echo Findings The basal inferior segment is akinetic. Right Ventricle Normal right ventricular cavity size and systolic function. There is an ICD wire seen in the right ventricle. Atria The left atrium is moderately dilated. The right atrium is normal in size. Aortic Valve There is a normal trileaflet aortic valve. There is no aortic valve stenosis. There is mild to moderate aortic valve regurgitation. Mitral Valve The mitral valve appears normal. There is trace mitral valve regurgitation. There is no mitral valve stenosis. Pulmonic Valve The pulmonic valve is likely normal. Tricuspid Valve There is mild tricuspid valve regurgitation. There is no evidence of pulmonary hypertension. Great Vessels The asc aorta is normal in size. Venous The inferior vena cava is normal in size and collapses greater than 50% with inspiration. Pericardium/Pleural There is a trivial pericardial effusion. Prior Study Comparison No significant change compared to prior study dated: 04/26/2020. Measurements 2D Linear Measurements IVSd: 0.92 0.6-0.9/0.6-1.0 cm LVIDd: 5.07 3.9-5.3/4.2-5.9 cm LVIDd Index: 3.27 2.4-3.2/2.2-3.1 cm/m2 LVIDs: 4.45 2.0-3.6 cm LVPWd: 1.04 0.7-1.1 cm Ao Root: 3.40 2.1-3.5 cm LA Diam: 2.70 2.7-3.8/3.0-4.0 cm LAIDs Index: 1.74 1.5-2.3 cm/m2 LV Mass: 225.79 67-162/88-224 g LV Mass Index: 145.67 43-95/49-115 g/m2 LVOT Diam: 2.20 3.0+(-)1.3 cm 2D Systolic Function EF 4C: 31.20 >55% EF 2C: 39.60 >55% EF BiP: 35.80 >55% Mitral Valve MV Pk E: 0.53 MV PK A: 0.99 MV Decel Time: 179.00 E/A: 0.50 E'Lateral: 3.70 E'Medial: 3.92 E/E' Med: 13.60 E/E' Lat: 14.40 PHT: 52.00 MVA PHT: 4.[address] [place]: 2.98 Aortic Valve AoV Pk Jose Antonio: 1.62 AoV Mn Jose Antonio: 1.09 AoV VTI: 0.35 AoV Pk Grad: 10.00 Aov Mn Grad: 5.00 ECHO Cont.VTI: 2.04 AI Pk Jose Antonio: 5.[address]: 3.32 LVOT LVOT Pk Jose Antonio: 0.87 LVOT Mn Jose Antonio: 0.59 LVOT VTI: 0.19 LVOT Pk Grad: 3.00 LVOT Mn Grad: 2.00 LVOT Diam: 2.20 LVOT Area: 3.80 Diastolic Function MV Pk E: 0.53 MV Pk A: 0.99 E/A: 0.50 E'Medial: 3.92 E/E' Med: 13.60 E' Laterial: 3.70 E/E' Lat: 14.40 Right Ventricle TAPSE (mm): 27.00 TVS' Jose Antonio: 14.00 Tricuspid Valve TR Pk Jose Antonio: 2.52 TR Pk Grad: 25.00 RA Press: 3.00 RVSP: 28.00 Great Vessels Aorta Ao Root-2D: 3.40 2.0-3.7 cm Ao Asc: 3.60 2.1-3.4 cm Pulmonary Valve PV Pk Jose Antonio: 0.97 Peak PV Grad: 4.00 Updated in Other Vendor System with Status of Final Praveen Francisco MD electronically signed on 04/03/2024 10:42:17 AM with status of Final
== END ==
LOC: HO.CARD 13:40
PROVIDERS: PCP Family Medicine; Visit Provider Internal Medicine Cardiovascular Disease
DX: I42.9 Cardiomyopathy, unspecified (principal)
CPT/HCPCS: 93306

== ENCOUNTER → 2024-04-01 13:44 | Outpatient (BNV) | payer OTHER, SELFPAY | PROVIDERS: PCP Family Medicine; Visit Provider Internal Medicine | DX: I35.1 Nonrheumatic aortic (valve) insufficiency (principal); I36.1 Nonrheumatic tricuspid (valve) insufficiency | CPT/HCPCS: 93306 ==

== ENCOUNTER 2024-05-09 13:59 | Outpatient (REF) | payer OTHER, SELFPAY ==
[2024-05-09 16:02] LABS: MANUAL DIFF FLAG NO
[2024-05-09 16:10] LABS: Basophils Absolute Auto 0.1 X10*3/uL (0.0-0.2); Basophils Percent Auto 1.1 % (0-2); Eosinophils Absolute Auto 0.2 X10*3/uL (0.0-0.4); Eosinophils Percent Auto 2.8 % (0-4); Hematocrit 37.2 % (37.0-47.0); Hemoglobin 12.2 g/dl (12.0-16.0); Imm Gran Abs Auto 0.01 X10*3/uL (0.00-0.03); Imm Gran Pct Auto 0.2 % (0.0-0.4); Lymphocytes Absolute Auto 2.4 X10*3/uL (1.2-4.9); Lymphocytes Percent Auto 41.9 % (20-40); Mean Corpuscular HGB Conc 32.8 g/dl (31.0-35.0); Mean Corpuscular Hemoglobin 29.9 pg (27.0-33.0); Mean Corpuscular Volume 91.2 fL (80.0-98.0); Mean Platelet Volume 9.6 fL (9.4-12.3); Monocytes Absolute Auto 0.5 X10*3/uL (0.1-1.2); Neutrophils Absolute Auto 2.6 x10*3/uL (2.0-8.3); Platelet Count 300 X10*3/uL (160-400); Red Blood Count 4.08 X10*6/uL (4.20-5.50); White Blood Count 5.7 X10*3/uL (4.8-10.8)
[2024-05-09 16:44] LABS: Alanine Aminotransferase 12 U/L (0-31); Albumin Level 4.2 g/dL (3.5-5.0); Alkaline Phosphatase 72 U/L (39-117); Anion Gap 13 (12-20); Aspartate Amino Transferase 24 U/L (5-31); Bilirubin Total 0.4 mg/dL (0.0-1.0); Blood Urea Nitrogen 26 mg/dL (9-16); C Reactive Protein < 0.04 mg/dL (< or = 0.50); Calcium 9.8 mg/dL (8.4-10.2); Carbon Dioxide 26 mmol/L (22-29); Chloride 109 mmol/L (96-108); Cholesterol 161 mg/dL (<200); Estimated Glomerular Filt Rate 14; Glucose Random 148 mg/dL (60-115); HDL Cholesterol 58 mg/dL (>40); LDL Cholesterol Calculated 87 mg/dL (<100); Potassium 4.2 mmol/L (3.3-5.1); Sodium 144 mmol/L (135-145); Triglycerides 82 mg/dL (<150)
[2024-05-09 16:48] LABS: TSH reflex Free T4 1.01 uIU/mL (0.32-4.0)
[2024-05-09 16:51] LABS: Lactate Dehydrogenase 290 U/L (122-220)
[2024-05-12 08:06] LABS: ~HepC Num1 0.13 S/CO (0.00-0.79); ~Hepatitis C Antibody Nonreactive (Nonreactive)
== END 2024-05-09 14:00 | disposition home or self-care (01) ==
LOC: HO.HHCL 13:59
PROVIDERS: Visit Provider Family Medicine
DX: Z00.00 Encounter for general adult medical examination without abnormal findings (principal); Z13.6 Encounter for screening for cardiovascular disorders; R41.3 Other amnesia; R63.4 Abnormal weight loss
CPT/HCPCS: 36415; 80053; 80061; 83615; 84443; 85025; 86140; 86803

== ENCOUNTER 2024-06-09 12:27 | Outpatient (REF) | payer OTHER, SELFPAY ==
[2024-06-09 15:47] LABS: Bacterial Vaginosis PCR NEGATIVE (Negative); Candida Group PCR NOT DETECTED (Not Detect); Candida glab krusei PCR NOT DETECTED (Not Detect); Trichomonas vaginalis PCR DETECTED (Not Detect)
[2024-06-09 16:19] LABS: CT PCR NOT DETECTED (Not Detect.); NG PCR NOT DETECTED (Not Detect.)
== END 2024-06-09 12:28 | disposition home or self-care (01) ==
LOC: HO.CHCLNP 12:27
PROVIDERS: Visit Provider Family Medicine
DX: N76.0 Acute vaginitis (principal); R30.0 Dysuria
CPT/HCPCS: 81515; 87086; 87088; 87186; 87491; 87591

== ENCOUNTER → 2024-06-24 23:59 | Outpatient (BNV) | payer OTHER, SELFPAY ==
--- NOTE | 2024-06-27 12:35 | A.OFFVIS_ITS ---
Intake Visit Reasons: Remote ICD check- [facility] Allergies Iodinated Contrast Media [CONTRAST,IV] Allergy (Severe, Verified 11/16/23 13:30) ANGIOEDEMA PFSH Medical History Cocaine use disorder Cocaine use disorder in remission MDD (major depressive disorder), recurrent severe, without psychosis Hx of sepsis History of asthma Hyperlipidemia HTN (hypertension) Cardiomyopathy ICD (implantable cardioverter-defibrillator) in place CAD (coronary artery disease) Chronic heart failure with reduced ejection fraction and diastolic dysfunction GERD (gastroesophageal reflux disease) Surgical History Hx of cystoscopy H/O hemorrhoidectomy Stented coronary artery Hx of colonoscopy Family History Father Diabetes HTN (hypertension) Mother Diabetes HTN (hypertension) Sister Throat cancer Social History Household Members: None Housing: Apartment Do you presently have visiting nurse or other home services: Yes (COAL PULVERIZING OPERATOR 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) Unable to assess alcohol history related to: Unable to respond Alcohol intake: never Comment: sleeping Patient Tobacco Use Status: Current someday Tobacco user Tobacco use type: Cigarette Cigarettes Per Day: 1 Years Smoked: 38 e-Cigarette/Vaping Use: Never Used Second Hand Smoke Exposure: Yes Substance Use Type: Crack/Cocaine and Marijuana Advance Directives Date on File: 04/26/21 service: No Current occupational status: unemployed and disabled Sexual orientation: Straight/Heterosexual Office Procedures Cardiac Device Check Cardiac Device Check Details: Remote ICD report generated 06/24/2024. ICD function is adequate [id number] Cardiac Interrogation, implant defibrillator w/interim Procedure code (CPT) selection complete Assessment & Plan Assessment & Plan (1) ICD (implantable cardioverter-defibrillator) in place: Code(s): Z95.810 - Presence of automatic (implantable) cardiac defibrillator Category: Medical Plan: See above Coding Level of Care Code Procedure Only Diagnoses ICD (implantable cardioverter-defibrillator) in place Z95.810 CPT Codes Cardiac Device Check - Cardiac Device 13: [id number] Cardiac Interrogation, implant defibrillator w/interim ([id number])
== END ==
PROVIDERS: PCP Family Medicine; Visit Provider Internal Medicine Cardiovascular Disease
DX: Z45.02 Encounter for adjustment and management of automatic implantable cardiac defibrillator (principal)
CPT/HCPCS: 93295

== ENCOUNTER 2024-07-03 12:55 | Outpatient (REF) | payer OTHER, SELFPAY ==
[2024-07-03 14:43] LABS: Vitamin B12 331 pg/mL (200-900)
--- OUTSIDE RECORDS SUMMARY | 2024-07-03 16:46 | XMS_ITS | Encounter Summary ---
Author Organization [facility] Address [address] [facility] [address] [place] [address] Care Team Providers Care Dowel Pointer Name Role Phone Kianna Nunez MD Primary Care Provider [phone] Reason for Referral * Consultation (Routine) - Pending Review Specialty Diagnoses / Procedures Referred By Bryan anderson Referred To Contact Orthopaedic Surgery Diagnoses Chronic right shoulder pain Kianna Nunez MD [address] [place] [address] Phone: tel: fax: [facility] Orthopedics [address] [place] [address] Phone: tel: Referral ID Status Reason Start Date Expiration Date Visits Requested Visits Authorized [id number] Pending Review Specialty Services Required 06/09/2024 06/09/2025 1 1 Reason for Visit * Reason Comments Hypertension Shoulder Pain Encounter Details Date Type Department Care Team (Late st Contact Info) Description 06/09/2024 10:15 AM EST Office Visit [facility] MED & PEDS [address] [place] [address] Kianna Nunez MD [address] [place] [address] Primary hypertension (Primary Dx); Chronic right shoulder pain; Acute vaginitis; Dysuria Social History Tobacco Use Types Packs/Day Years Used Date Smoking Tobacco: Every Day Cigarettes Smokeless Tobacco: Never Alcohol Use Standard Drinks/Week Comments Never 0 (1 standard drink = 0.6 oz pur e alcohol) Alcohol Answer Date Recorded Frequency of Alcohol Consumption Not on file 04/09/2024 Average Number of Drinks Not on file 024 Frequency of Binge Drinking Not on file 110 11/2023 Score 0 04/09/2024 Depression Answer Date Recorded Patient Health Questionnaire-9 Score 18 04/09/2024 Patient Health Questionnaire-9 Score 18 04/09/2024 Last PHQ-9: Questionnaire Data Not on file 1 06/09/2023 Housing Stability Answer Date Recorded What is your housing situation today? I have otr [facility] 02/15/[address] you li ve. Do you have problems with any of the following? None of the above 02/15/2024 Food Insecurity Answer Date Recorded Within the past 12 months, y ou worried that your food would run out before you got money to buy more: Never True 02/15/2024 Within the past 12 months,th e food you bought just didn't last and you didn't have enough money to get more: Never True Transportation Answer Date Recorded In the past 12 months, has l ack of transportation kept you from medical appts, meetings, work or from getting things needed for daily living? No 02/15/2024 Utilities Answer Date Recorded In the past 12 months, has t he electric, gas, oil or water company threatened to shut off services in your home? No 03/27/2023 Depression Answer Date Recorded Patient Health Questionnaire-2 Score 6 04/09/2024 Internet Access Answer Date Recorded Internet Access Q1 Yes 02/15/2024 Internet Access Q2 Not on file 02/15/2024 Comments Unknown Sex and Gender Information Value Date Recorded Sex Assigned at Female 04/03/2022 10:18 AM EDT Legal Sex Female 10:18 AM EDT Gender Identity Female 04/03/2022 10:18 AM EDT Sexual Orientation Choose not to disclose 2021 10:18 AM EDT documented as of this encounter Last Filed Vital Signs Vital Sign Reading Time Taken Comments Blood Pressure 130/84 06/09/2024 9:21 AM EST Pulse 86 06/09/2024 9:21 AM EST Temperature 36.2 ??C (97.2 ??F) 06/09/2024 9:21 AM ES T Respiratory Rate 18 06/09/2024 9:21 AM EST Oxygen Saturation 98% 06/09/2024 9:21 AM EST Inhaled Oxygen Concentration - - Weight 42.5 kg (93 lb 12.8 oz) 06/09/2024 9:21 AM EST Height 152.4 cm (5') 06/09/2024 9:21 AM EST Body Mass Index 18.32 06/09/2024 9:21 AM EST documented in this encounter Progress Notes * Kianna Nunez MD - 06/09/2024 10:15 AM EST Subjective Patient ID: Georgiana Earl is a 69 y.o. female who presents for Hypertension and Shoulder Pain. Worse with lifting above 45 degrees Shoulder Pain: Pt states her rt shoulder is hurting that began about 2 years ago but recently is exacerbated. Pt had af all about 2 years ago that she was evaluated in the ED. She states she has decreased ROM and pain trying to elevated the arm. Pt takes Tylenol and Lidocaine cream that provides mild relief. Concerns: Pt states she has been smelling a foul odorous discharge and is concerned it is her kidneys. Sx began about 2-3 days ago. Shoulder Pain The pain is present in the right shoulder. This is a chronic problem. The current episode started more than 1 year ago. There has been a history of trauma. The problem occurs constantly. The problem has been waxing and waning. The quality of the pain is described as aching. The pain is at a severity of 8/10. Associated symptoms include a limited range of motion and stiffness. Pertinent negatives include no fever, inability to bear weight, itching or numbness. She has tried acetaminophen for thesymptoms. The treatment provided moderate relief. Review of Systems Constitutional: Negative for appetite change, fatigue and fever. HENT: Negative for congestion, postnasal drip and rhinorrhea. Eyes: Negative for discharge and redness. Respiratory: Negative for apnea, cough, chest tightness and shortness of breath. Cardiovascular: Negative for chest pain. Gastrointestinal: Negative for abdominal pain. Endocrine: Negative for polyphagia. Genitourinary: Positive for vaginal discharge (foul odorous). Negative for difficulty urinating, dysuria and urgency. Musculoskeletal: Positive for arthralgias (Rt shoulder) and stiffness. Skin: Negative for itching. Neurological: Negative for dizziness, light-headedness, numbness and headaches. Hematological: Negative for adenopathy. Does not bruise/bleed easily. Objective Visit Vitals BP 130/84 (BP Location: Right arm, Patient Position: Sitting, BP Cuff Size: Adult) Pulse 86 Temp 97.2 ??F (36.2 ??C) (Oral) Resp 18 Ht 5' (1.524 m) Wt 93 lb 12.8 oz (42.5 kg) SpO2 98% BMI 18.32 kg/m?? Smoking Status Every Day BSA 1.34 m?? , Physical Exam Exam conducted with a plastic boat patcher present. Constitutional: General: She is not in acute distress. Appearance: She is not ill-appearing. HENT: Head: Normocephalic and atraumatic. Nose: No congestion. Pulmonary: Effort: Pulmonary effort is normal. No respiratory distress. Breath sounds: Normal breath sounds. Genitourinary: General: Normal vulva. Comments: No abnormal findings. Musculoskeletal: Right shoulder: Tenderness present. Decreased range of motion (pain worse lifting above 45 degrees). Cervical back: Normal range of motion. Neurological: General: No focal deficit present. Mental Status: She is alert. Psychiatric: Mood and Affect: Mood normal. Assessment/Plan Problem List Items Addressed This Visit Nervous Dysuria Relevant Orders Culture, Urine, Routine Circulatory Hypertension - Primary Close to controlled. Elevated diastolic. Target < 130/80 mmHg. Cont current meds. Has f/up with nephro on Jul 2024. Genitourinary Acute vaginitis Reports vaginal discharge for the last 2 days Relevant Orders Bacterial Vaginosis Chlamydia/N. Gonorrhoeae RNA, TMA, Urogenitial Musculoskeletal Chronic right shoulder pain Ddx rotator cuff syndrome vs shoulder impingement - will send to orthopedics - will send X ray - consider PT - cont APAP for pain Relevant Orders Referral to Orthopaedic Surgery XR Shoulder 2+ Views Right Scribe Attestation: By signing my name below, Doris Lafleur, attest that this documentation has been prepared under the direction of Kianna Nunez MD. documented in this encounter Miscellaneous Notes * Assessment & Plan Note - Kianna Nunez MD - 06/09/2024 9:33 AM EST Associated Problem(s): Chronic right shoulder pain Ddx rotator cuff syndrome vs shoulder impingement - will send to orthopedics - will send X ray - consider PT - cont APAP for pain * Assessment & Plan Note - Kianna Nunez MD - 06/09/2024 9:31 AM EST Associated Problem(s): Acute vaginitis Reports vaginal discharge for the last 2 days * Assessment & Plan Note - Kianna Nunez MD - 06/09/2024 9:25 AM EST Associated Problem(s): Hypertension Close to controlled. Elevated diastolic. Target < 130/80 mmHg. Cont current meds. Has f/up with nephro on Jul 2024. documented in this encounter Plan of Treatment Scheduled Orders Name Type Priority Associated Diagnoses Orde r Schedule XR Shoulder 2+ Views Right Imaging Routine Chronic right shoulder pain Expected: 06/09/2024, Expires: 06/09/2025 Scheduled Referrals Name Type Priority Associated Diagnoses Order Schedule Referral to Orthopaedic Surgery Outpatient Referral Routine Chronic right shoulder pain Expected: 06/09/2024 (Approximate), Expires: 06/09/2025 documented as of this encounter Procedures Procedure Name Priority Date/Time Associated Diagnosis Comments BACTERIAL VAGINOSIS PANEL Routine 06/09/2024 10:13 AM EST Acute vaginitis CHLAMYDIA/N. GONORRHOEAE RNA, TMA, UROGENITAL Routine 06/09/2024 10:13 AM EST Acute vaginitis CULTURE, URINE, ROUTINE Routine 06/09/2024 12:00 AM EST Dysuria documented in this encounter Results * Chlamydia/N. Gonorrhoeae RNA, TMA, Urogenitial (06/09/2024 10:13 AM EST) CT PCR NOT DETECTED Not Detect. [facility] Comment:A not detected test result does not exclude the possibilityof infection because test results can be affected byimproper specimen collection, concurrent antibiotic therapy,or the number of organisms in the specimen which may bebelow the sensitivity of the test. As with many diagnostictests, results from the Xpert CT/NG assay should beinterpreted in conjunction with other laboratory andclinical data available to the clinician.Xpert CT/NG performance has not been evaluated in patientsless than 14 years of age. The assay should not be used forthe evaluationof suspected sexual abuse or for other medico-legalindications. Additional testing is recommended in anycircumstance when false positive or false negative resultscould lead to adverse medical, social or psychologicalconsequences. NG PCR NOT DETECTED Not Detect. [facility] Comment:A not detected test result does not exclude the possibilityof infection because test results can be affected byimproper specimen collection, concurrent antibiotic therapy,or the number of organisms in the specimen which may bebelow the sensitivity of the test. As with many diagnostictests, results from the Xpert CT/NG assay should beinterpreted in conjunction with other laboratory andclinical data available to the clinician.Xpert CT/NG performance has not been evaluated in patientsless than 14 years of age. The assay should not be used forthe evaluationof suspected sexual abuse or for other medico-legalindications. Additional testing is recommended in anycircumstance when false positive or false negative resultscould lead to adverse medical, social or psychologicalconsequences. Swab (Vaginal Swab) 06/09/2024 10:13 AM EST 06/09/2024 2:19 PM EST Narrative [facility] - 06/09/2024 4:19 PM EST Vaginal us Kianna Nunez MD LAB MICROBIOLOGY - GENERAL OR DERABLES Final Result [facility] [address] [place] [phone] * (ABNORMAL) Bacterial Vaginosis (06/09/2024 10:13 AM EST) TRICHOMONAS VAGINALIS DETECTION BY PCR DETECTED(A) Not Detect [facility] BACTERIAL VAGINOSIS DETECTION BY PCR NEGATIVE Negative [facility] Comment:The BV organism targ ets of the Xpert Xpress MVP test can becommensal in women; Xpert Xpress MVP positive results forbacterial vaginosis should be considered in conjunction withother clinical and patient information to determine thedisease status. Organisms that are not detected by the XpertXpress MVP test have also been reported to be associatedwith BV and aerobic vaginitis.The Xpert Xpress MVP test performance has not been evaluatedin patients under the age of 14. JEANINE GROUP DETECTION BY PCR NOT DETECTED Not Detect [facility] Jeanine glab krusei PCR NOT DETECTED Not Detect [facility] Swab Vaginal structure / Unknown 06/09/2024 10:13 AM EST 06/09/2024 2:19 PM EST Kianna Nunez MD LAB MICROBIOLOGY - GENERAL OR DERABLES Final Result Performing Organization Address [facility]/State/[facility] Co de Phone Number [facility] [address] [place] [phone] * Culture, Urine, Routine (06/09/2024 12:00 AM EST) Urine Urine specimen obtained by clean catch procedure / Unknown 06/09/2024 06/09/2024 Comment:UACC Narrative [facility] - 06/11/2024 8:04 AM EST Escherichia coli Quant > 100,000 cfu/mL Escherichia coli: Ampicillin >=32(R) Escherichia coli: Cefazolin 8(S) Escherichia coli: Cefepime <=0.12(S) Escherichia coli: Ceftriaxone <=0.25(S) Escherichia coli: Ciprofloxacin >=4(R) Escherichia coli: Gentamicin <=1(S) Escherichia coli: Nitrofurantoin <=16(S) Escherichia coli: Trimethoprim/Sulfamethoxazole <=20(S) Specimen Source: Urine clean catch Kianna Nunez MD LAB MICROBIOLOGY - GENERAL OR DERABLES Final Result [facility] [address] [place] [phone] documented in this encounter Visit Diagnoses Diagnosis Primary hypertension- Primary Unspecified essential hypertension Chronic right shoulder pain Pain in joint, shoulder region Acute vaginitis Unspecified vaginitis and vulvovaginitis Dysuria documented in this encounter Additional Health Concerns Assessment Noted Time PHQ-9 Depression Total Score: 18 024 10:34 AM EST documented as of this encounter Care Teams Dowel Pointer Relationship Specialty Start Date End Date Kianna Nunez MD [address] [place] [address] PCP - General Family Medicine 02/02/20 Kleber Liu MD Alumina Refinery Operator 06/04/04 Anaya Parikh OD Optometry 04/09/24 Dorian Edouard Process Analyst 06/04/04 [employer] Flat Ironer 04/09/24 documented as of this encounter
--- OUTSIDE RECORDS SUMMARY | 2024-07-03 16:46 | XMS_ITS | Encounter Summary ---
Author Organization [employer] Address [address] [place] [address] Care Team Providers Care Cold Storage Superintendent Name Role Phone Kianna Nunez MD Primary Care Provider [phone] Reason for Visit * Reason Comments Med Refill Encounter Details Date Type Department Care Team ([facility] st Contact Info) Description 02/20/2023 Refill [facility] MED & PEDS [address] [place], [place] [phone] Kianna Nunez MD [address] [place], [place] [phone] Primary hypertension Social History Tobacco Use Types Packs/Day Years Used Date Smoking Tobacco: Every Day Cigarettes Smokeless Tobacco: Never Comments Unknown Sex and Gender Information Value Date Recorded Sex Assigned at Female 04/03/2022 10:18 AM EDT Legal Sex Female 10:18 AM EDT Gender Identity Female 04/03/2022 10:18 AM EDT Sexual Orientation Choose not to disclose 2021 10:18 AM EDT documented as of this encounter Miscellaneous Notes * Telephone Encounter - Kianna Nunez MD - 02/20/2023 12:03 PM EDT Patient was switched to hydralazine 25 mg TID documented in this encounter Plan of Treatment Not on file documented as of this encounter Visit Diagnoses Diagnosis Primary hypertension Unspecified essential hypertension documented in this encounter Care Teams Cold Storage Superintendent Relationship Specialty Start Date End Date Kianna Nunez MD [address] [place], [place] [phone] PCP - General Family Medicine 02/02/20 Kleber Liu MD Director Of Retail Marketing 06/04/04 Anaya Parikh OD Optometry 04/09/24 Dorian Edouard Plate Sensitizer 06/04/04 [employer] Technical Business Analyst 04/09/24 documented as of this encounter
--- OUTSIDE RECORDS SUMMARY | 2024-07-03 16:46 | XMS_ITS | Encounter Summary ---
Author Organization [employer] Address [address] [facility] [address] [facility] [address] [place] [address] Care Team Providers Care Granite Fabricator Name Role Phone Kianna Nunez MD Primary Care Provider [phone] Encounter Details Date Type Department Care Team (Latest Contact Info) Description 06/09/2024 Travel Social History Tobacco Use Types Packs/Day Years Used Date Smoking Tobacco: Every Day Cigarettes Smokeless Tobacco: Never Alcohol Use Standard Drinks/Week Comments Never 0 (1 standard drink = 0.6 oz pur e alcohol) Alcohol Answer Date Recorded Frequency of Alcohol Consumption Not on file 04/09/2024 Average Number of Drinks Not on file 024 Frequency of Binge Drinking Not on file 11/2023 Score 0 04/09/2024 Depression Answer Date Recorded Patient Health Questionnaire-9 Score 18 04/09/2024 Patient Health Questionnaire-9 Score 18 04/09/2024 Last PHQ-9: Questionnaire Data Not on file 1 06/09/2023 Housing Stability Answer Date Recorded What is your housing situation today? I have tor kraus 02/15/[address] you [...] AM EDT documented as of this encounter Plan of Treatment Not on file documented as of this encounter Visit Diagnoses Not on filedocumented in this encounter Additional Health Concerns Assessment Noted Time PHQ-9 Depression Total Score: 18 024 10:34 AM EST documented as of this encounter Care Teams Granite Fabricator Relationship Specialty Start Date End Date Kianna Nunez MD [address] [place] [address] PCP - General Family Medicine 02/02/20 Kleber Liu MD Appeals And Generalist Clerk 06/04/04 Anaya Parikh OD Optometry 04/09/24 Dorian Edouard Lot Boss 06/04/04 [facility] Personnel Administrator 04/09/24 documented as of this encounter
--- OUTSIDE RECORDS SUMMARY | 2024-07-03 16:47 | XMS_ITS | Encounter Summary ---
Author Organization [employer] Address [address] [facility] [address] [facility] [address] [place] [address] Care Team Providers Care Fitter Type Bar And Segment Name Role Phone Kianna Nunez MD Primary Care Provider [phone] Reason for Visit * Reason Onset Date Comments Pre-op Exam 11/15/2023 Encounter Details Date Type Department Care Team ([facility] st Contact Info) Description 11/15/2023 Telephone [facility] CHC MED & PEDS [address] [place] [address] Kianna Nunez MD [address] [place] [address] Pre-op Exam Social History Tobacco Use Types Packs/Day Years Used Date Smoking Tobacco: Every Day Cigarettes Smokeless Tobacco: Never Alcohol Use Standard Drinks/Week Comments Never 0 (1 standard drink = 0.6 oz pur e alcohol) Depression Answer Date Recorded Patient Health Questionnaire-9 Score 0 05/01/2023 Patient Health Questionnaire-9 Score 0 05/01/2023 Last PHQ-9: Questionnaire Data Not on file 1 07/01/2022 Housing Stability Answer Date Recorded What is your housing situation today? I do not have housing (Staying with others, in a hotel, in a skilled nursing, living outside on the street, on a beach, in a car, or in a park 03/16/[address] you li ve. Do you have problems with any of the following? None of the above 03/16/2023 Food Insecurity Answer Date Recorded Within the past 12 months, y ou worried that your food would run out before you got money to buy more: Often true 03/27/2023 Within the past 12 months,th e food you bought just didn't last and you didn't have enough money to get more: Often true Transportation Answer Date Recorded In the past 12 months, has l ack of transportation kept you from medical appts, meetings, work or from getting things needed for daily living? Yes, it has kept me from medical appointments or getting medications. 03/16/2023 Utilities Answer Date Recorded In the past 12 months, has t he electric, gas, oil or water company threatened to shut off services in your home? No 03/27/2023 Depression Answer Date Recorded Patient Health Questionnaire-2 Score 0 05/01/2023 Comments Unknown Sex and Gender Information Value Date Recorded Sex Assigned at Female 04/03/2022 10:18 AM EDT Legal Sex Female 10:18 AM EDT Gender Identity Female 04/03/2022 10:18 AM EDT Sexual Orientation Choose not to disclose 2021 10:18 AM EDT documented as of this encounter Miscellaneous Notes * Telephone Encounter - Nena Penn - 11/15/2023 10:20 AM EDT Date of Surgery: 12/13 Surgical procedure being done: cataract surgery of right eye Type of anesthesia: MAC Lab needed: no EKG: no Surgeon's name: Dr. Agustin Facility name: [facility] Surgeon's office number: [phone] ext [phone] Surgeon's office fax number: [phone] Contact name (person you spoke with): Kelli Cruz office note from surgeon requested: Pre-Op notes documented in this encounter Plan of Treatment Not on file documented as of this encounter Visit Diagnoses Not on filedocumented in this encounter Additional Health Concerns Assessment Noted Time PHQ-9 Depression Total Score: 0 05/01/20 23 2:20 PM EST documented as of this encounter Care Teams Fitter Type Bar And Segment Relationship Specialty Start Date End Date Kianna Nunez MD [address] [place] [address] PCP - General Family Medicine 02/02/20 Kleber Liu MD Rock Room Worker 06/04/04 Anaya Parikh OD Optometry 04/09/24 Dorian Edouard Abrasive Grader 06/04/04 [facility] Digital Communications Manager 04/09/24 documented as of this encounter
--- OUTSIDE RECORDS SUMMARY | 2024-07-03 16:47 | XMS_ITS | Encounter Summary ---
Author Organization [facility] Address [address] [place] [address] Care Team Providers Care Fancy Packer Name Role Phone Kianna Nunez MD Primary Care Provider [phone] Reason for Visit * Reason Onset Date Comments insurance update 10/05/2022 Appointment 10/05/2022 Encounter Details Date Type Department Care Team (Late st Contact Info) Description 10/05/2022 Telephone [facility] ADULT DENTAL [address] [place] [address] Felisha Burkett DDS insurance update; Appointment Social History Tobacco Use Types Packs/Day Years Used Date Smoking Tobacco: Never Assessed Comments Unknown Sex and Gender Information Value Date Recorded Sex Assigned at Female 04/03/2022 10:18 AM EDT Legal Sex Female 10:18 AM EDT Gender Identity Female 04/03/2022 10:18 AM EDT Sexual Orientation Choose not to disclose 2021 10:18 AM EDT COVID-19 Exposure Response Date Recorded In the last 10 days, have yo u been in contact with someone who was confirmed or suspected to have Coronavirus/COVID-19? No / Unsure 09/29/2022 2:01 PM EDT documented as of this encounter Miscellaneous Notes * Telephone Encounter - Delmis Zaragoza - 10/05/2022 10:06 AM EDT Bartolo from [facility] called in stating that patient had appt a couple of days ago but was unable to be seen due to apparently having no insurance coverage. She does have coverage through [facility] benefit providers. The id number for the dental portion would be [id number]. Please update insurance info and contact patient for rescheduling DR documented in this encounter Plan of Treatment Not on file documented as of this encounter Visit Diagnoses Not on filedocumented in this encounter Care Teams Fancy Packer Relationship Specialty Start Date End Date Kinana Nunez MD [address] [place] [address] PCP - General Family Medicine 02/02/20 Kleber Liu MD Motion Picture Commentator 06/04/04 Aanya Parikh OD Optometry 04/09/24 Dorian Edouard Yard Attendant 06/04/04 [facility] Tree Tapping Laborer 04/09/24 documented as of this encounter
--- OUTSIDE RECORDS SUMMARY | 2024-07-03 16:47 | XMS_ITS | Encounter Summary ---
Author Organization [employer] Address [address] [place] [address] Care Team Providers Care Corporate Compliance Officer Name Role Phone Kianna Nunez MD Primary Care Provider [phone] Reason for Visit * Reason Onset Date Comments Nurse Triage 01/08/2024 Encounter Details Date Type Department Care Team (Late st Contact Info) Description 01/08/2024 Telephone [facility] MEDICINE [address] [place] [address] Kianna Nunez MD [address] [place] [address] Nurse Triage Social History Tobacco Use Types Packs/Day Years [...] with others, in a hotel, in a care home, living outside on the street, on a [...] encounter Miscellaneous Notes * Telephone Encounter - Kelly More RN - 01/08/2024 2:43 PM EDT Triage call to Cat, . Pt is with Cat and gave verbal ok to speak for Pt. Pt only speaks east timorese. Pt has been having some rectal bleeding on and off for 2 or more days. Pt reports blood noted on toilet paper when wiping but, also in toilet bowl, red color . Pt has had some constipationbut, this morning no further symptoms. Pt has not been drinking adequate liquids and is encouraged to increase liquids 6-8 glasses daily. Also advised to add fresh fruit/vegetables and higher fiber to diet. Pt is not taking blood thinners. Since this has been happening on and off for several monthsPt would like to see provider. ASK apt with Dr. Mcgowan, 01/16/24 @ 1115am. Insurance is verified as active prior to booking. Protocol Used: Rectal Bleeding (Adult) Protocol-Based Disposition: See in Office or Video Visit within 2 Weeks Video visit not offered Positive Triage Questions: * Rectal bleeding is minimal (e.g., blood just on toilet paper, a few drops in toilet bowl), and bleeding recurs 3 or more times using Care Advice * Age > 50 years * All higher-acuity triage questions were negative Care Advice Discussed: * Reassurance and Education - Mild Rectal Bleeding * To Soften Stools and Treat Constipation * High Fiber Diet * Reasons To Call Back - Bleeding increases in amount - Bleeding occurs 3 or more times after using Care Advice - You become worse * Telephone Encounter - Kelly More RN - 01/08/2024 2:20 PM EDT Triage call with odell Harm Reduction Worker [place] [id number]. Call to [phone] unable to get connection, callto [phone] unable to get connection. * Telephone Encounter - Ruba Hinson - 01/08/2024 2:09 PM EDT Symptoms: Body Aches, Urination Pain Outcome: Schedule an urgent appointment (within 1 hour) or talk to a nurse or provider soon Reason: Severe pain now The caller accepted this outcome Please contact at [phone] documented in this encounter Plan of Treatment Not on file documented as of this encounter Visit Diagnoses Not on filedocumented in this encounter Additional Health Concerns Assessment Noted Time PHQ-9 Depression Total Score: 0 05/01/20 23 2:20 PM EST documented as of this encounter Care Teams Corporate Compliance Officer Relationship Specialty Start Date End Date iKanna Nunez MD [address] [place] [address] PCP - General Family Medicine 02/02/20 Kleber Liu MD Radio Repairer Domestic 06/04/04 Anaya Parikh OD Optometry 04/09/24 Dorian Edouard Wick Tender 06/04/04 [facility] Senior Compensation Consultant 04/09/24 documented as of this encounter
--- OUTSIDE RECORDS SUMMARY | 2024-07-03 16:47 | XMS_ITS | Encounter Summary ---
Author Organization [employer] Address [address] [place] [address] Care Team Providers Care Etcher Photoengraving Name Role Phone Kianna Nunez MD Primary Care Provider [phone] Encounter Details Date Type Department Care Team (Late st Contact Info) Description 06/17/2024 Telephone [facility] [address] [place] [address] Kianna Nunez MD [address] [place], [place] [id number] Social History Tobacco Use Types Packs/Day Years [...] documented as of this encounter Care Teams Etcher Photoengraving Relationship Specialty Start Date End Date Kianna Nunez MD [address] [place] [address] PCP - General Family Medicine 02/02/20 Kleber Liu MD Head Resident 06/04/04 Anaya Parikh OD Optometry 04/09/24 Dorian Edouadr Last Cleaner 06/04/04 [facility] Product Builder 04/09/24 documented as of this encounter
--- OUTSIDE RECORDS SUMMARY | 2024-07-03 16:47 | XMS_ITS | Encounter Summary ---
Author Organization [employer] Address [address] [place] [address] Care Team Providers Care Sheet Metal Duct Worker Supervisor Name Role Phone Kianna Nunez MD Primary Care Provider [phone] Encounter Details Date Type Department Care Team (Late st Contact Info) Description 06/05/2024 Telephone [facility] MEDICINE [address] [place], [place] [phone] [facility] [address] [place] [address] Social History Tobacco Use Types Packs/Day Years [...] documented as of this encounter Care Teams Sheet Metal Duct Worker Supervisor Relationship Specialty Start Date End Date Kianna Nunez MD [address] [place] [address] PCP - General Family Medicine 02/02/20 Kleber Liu MD Sales Consultant Insurance 06/04/04 Anaya Parikh OD Optometry 04/09/24 Dorian Edouard Mill Operator Helper 06/04/[address] [facility] [address] Cleaner 04/09/24 documented as of this encounter
--- OUTSIDE RECORDS SUMMARY | 2024-07-03 16:47 | XMS_ITS | Encounter Summary ---
Author Organization [employer] Address [address] [place] [address] Care Team Providers Care First Dyer Name Role Phone Kianna Nunez MD Primary Care Provider [phone] Reason for Visit * Reason Comments Med Refill Encounter Details Date Type Department Care Team ([facility] st Contact Info) Description 06/18/2024 Refill [facility] CHC MED & PEDS [address] [place], [place] [phone] Kianna Nunez MD [address] [place] [address] Social History Tobacco Use Types Packs/Day Years [...] documented as of this encounter Care Teams First Dyer Relationship Specialty Start Date End Date Kianna Nunez MD [address] [place] [address] PCP - General Family Medicine 02/02/20 Kleber Liu MD Concrete Mixer Loader Truck Mounted 06/04/04 Anaya Parikh OD Optometry 04/09/24 Dorian Edouard Save All Operator 06/04/04 [facility] Windows Security Analyst 04/09/24 documented as of this encounter
--- OUTSIDE RECORDS SUMMARY | 2024-07-03 16:47 | XMS_ITS | Encounter Summary ---
Author Organization [employer] Address [address] [place] [address] Care Team Providers Care Chemical Detection Expert Name Role Phone Kianna Nunez MD Primary Care Provider [phone] Encounter Details Date Type Department Care Team (Late st Contact Info) Description 06/11/2024 Telephone [facility] MED [facility] PEDS [address] [place] [address] Kianna Nunez MD [address] [place] [address] Social History Tobacco Use Types Packs/Day Years [...] encounter Miscellaneous Notes * Telephone Encounter - Nelson Lunsford RN - 06/13/2024 3:35 PM EST TC placed, spoke with pt, inform of message below from PCP. Pt verbalizes understanding and agreed to plan. * Telephone Encounter - Flower Rodas RN - 06/13/2024 10:15 AM EST TC to patient via guide [facility]pine #[id number]; no answer, message left for patient to return call. * Telephone Encounter - Flower Rodas RN - 06/12/2024 11:57 AM EST TC to patient via guide alpine #[id number]. No answer, left message to return call. * Telephone Encounter - Kianna Nunez MD - 06/11/2024 1:38 PM EST [facility] Team! Can you please call Georgiana Earl and inform about results? Patient lab results show BV, sent metronidazole to [facility], attempt calling earlier but no answer LVM. Also her Ucx showed infectious process with E coli, cx sensitive to antibiotic given. Thanks! Kianna documented in this encounter Plan of Treatment Not on file documented as of this encounter Visit Diagnoses Not on filedocumented in this encounter Additional Health Concerns Assessment Noted Time PHQ-9 Depression Total Score: 18 024 10:34 AM EST documented as of this encounter Care Teams Chemical Detection Expert Relationship Specialty Start Date End Date Kianna Nunez MD [address] [place] [address] PCP - General Family Medicine 02/02/20 Kleber Liu MD Certified Athletic Trainer 06/04/04 Anaya Parikh OD Optometry 04/09/24 Dorian Edouard Barrel Rifler 06/04/04 [facility] Tax Associate 04/09/24 documented as of this encounter
--- OUTSIDE RECORDS SUMMARY | 2024-07-03 16:47 | XMS_ITS | Clinical Summary ---
Author Organization [facility] Address [address] [place] [address] Care Team Providers Care City Treasurer Name Role Phone Kianna Nunez MD Primary Care Provider [phone] Allergies Active Allergy Reactions Criticality Noted Date Comments Iodinated Contrast Media Angioedema High 11/30/2020 Yellow Dyes (Non-Tartrazine) 021 Medications * This document contains information received from the source organization and may not represent a complete record from that organization. ammonium lactate (Amlactin) 12 % cream APPLY TOPICALLY TO DRY SKIN TWICE DAILY 03/24/20 22 Active nitroglycerin (Nitrostat) 0.[address] under the tongue. 10/24/19 19 Active ALBUTEROL IN Take 1 puff by mouth Every 4-6 hours as needed (SOB). 05/13/20 20 Active ketorolac (Acular) 0.5 % ophthalmic solution INSTILL 1 DROP AFFECTED EYE(S) EVERY DAY FOR 3 DAYS 11/28/19 24 Active carvedilol (Coreg) 25 MG tablet TAKE 1 AND 1/2 TABLETS BY MOUTH TWICE DAILY IN THE MORNING AND IN THE EVENING 90 tablet 11 01/07/20 24 Active Ascorbic Acid (vitamin C) 250 MG tablet TAKE 1 TABLET BY MOUTH EVERY MORNING 30 tablet 11 01/07/20 24 Active Calcium + Vitamin D3 600-5 MG-MCG tablet TAKE 1 TABLET BY MOUTH TWICE DAILY IN THE MORNING AND IN THE EVENING 60 tablet 01/07/20 24 Active Fluticasone-Salme terol (Advair Diskus) 250-50 MCG/ACT aerosol powder INHALE 1 PUFF BY MOUTH TWICE DAILY RINSE MOUTH AFTER USING. 60 each 5 01/07/20 24 Active atorvastatin (Lipitor) 40 MG tabletIndications :Hyperlipidemia, unspecified hyperlipidemia type TAKE 1 TABLET BY MOUTH AT BEDTIME 90 tablet 1 01/17/20 24 Active isosorbide mononitrate ER (Imdur) 30 MG 24 hr tabletIndications :Chronic heart failure, unspecified heart failure type (CMS/HCC) TAKE 1 TABLET BY MOUTH EVERY MORNING 90 tablet 1 01/17/20 24 Active mirtazapine (Remeron) 30 MG tabletIndications :Failure to thrive in adult TAKE 1 TABLET BY MOUTH AT BEDTIME 90 tablet 1 01/17/20 24 Active pantoprazole (ProtoNix) 40 MG EC tabletIndications :Gastroesophageal reflux disease, unspecified whether esophagitis present TAKE 1 TABLET BY MOUTH EVERY MORNING 90 tablet 1 01/17/20 24 Active docusate sodium (Colace) 100 MG capsule TAKE 1 CAPSULE BY MOUTH EVERY MORNING 90 capsule 1 01/24/20 24 Active lidocaine (Xylocaine) 5 % ointmentIndicatio ns:Rectal tenesmus,Anal fissure Apply topically if needed for mild pain. 60 g 01/30/20 24 025 Active Acetaminophen Extra Strength 500 MG tabletIndications :Pain Take 1,000 mg by mouth every 8 (eight) hours if needed (pain). 180 tablet 1 02/22/20 24 Active torsemide (Demadex) 20 MG tabletIndications :Chronic heart failure, unspecified heart failure type (CMS/HCC) TAKE 1 TABLET BY MOUTH EVERY MORNING 90 tablet 1 03/06/20 24 Active FLUoxetine (PROzac) 20 MG capsuleIndication s:Anxiety TAKE 1 CAPSULE BY MOUTH EVERY MORNING 90 capsule 1 03/25/20 24 Active imipramine (Tofranil) 50 MG tabletIndications :Painful spasm of anus TAKE 1 TABLET BY MOUTH AT BEDTIME 90 tablet 1 04/03/20 24 Active hydrALAZINE (Apresoline) 25 MG tablet TAKE 1 TABLET BY MOUTH THREE TIMES DAILY IN THE MORNING, EVENING, AND BEDTIME 90 tablet 2 05/12/20 24 Active hydrOXYzine pamoate (Vistaril) 25 MG capsule TAKE 1 CAPSULE BY MOUTH EVERY 8 HOURS NEEDED FOR ANXIETY 90 capsule 06/18/19 25 Active hydrOXYzine pamoate (Vistaril) 25 MG capsule Take 1 capsule (25 mg) by mouth every 8 (eight) hours if needed for anxiety. 90 capsule 05/05/20 24 025 Discontinued sulfamethoxazole- trimethoprim (Bactrim DS) 800-160 MG tablet Take 1 tablet by mouth 2 times daily for 3 days. 6 tablet 06/09/19 25 025 metroNIDAZOLE (Flagyl) 500 MG tablet Take 1 tablet (500 mg) by mouth 2 times daily for 7 days. 14 tablet 06/11/19 25 025 Active Problems Problem Noted Date Diagnosed Date Chronic right shoulder pain 06/09/2024 Assessment & Plan (06/09/2024 9:34 AM EST): Ddx rotator cuff syndrome vs shoulder impingement - will send to orthopedics - will send X ray - consider PT - cont APAP for pain Memory deficit 05/06/2024 Overview (05/06/2024): SLUMS 19 Apr 2024 Assessment & Plan (05/06/2024 9:08 AM EST): Patient with issues in her functional status and SLUMS of 16 consistent with dementia. At this moment, will start laboratory and imaging evaluation for dementia and refer to neurology to assist with diagnosis and treatment as needed. Dementia with mood disturbance 04/09/2024 Cognitive and behavioral changes 04/09/2024 Assessment & Plan (05/06/2024 9:07 AM EST): Referral to for further evaluation. Called and was made an appt to be seen via telemedicine by psych provider. Also was informed of locations she was referred for therapy and information given to granddaughter/WAREHOUSE STOCKER. Assessment & Plan (04/09/2024 11:16 AM EST): Patient with positive PHQ-9 and SLUMS of 16. Will need to make assessment of her memory and needs also followup on her mood. Likely contributing to her low score in SLUMS could be pseudodementia due to her mood. At this time, patient was scheduled. Rectal tenesmus 01/30/2024 Assessment & Plan (01/30/2024 3:44 PM EDT): Discussed importance of following up with GI. Prescribing Lidocaine and Nitroglycerin for Sx. Anal fissure 01/30/2024 Unintentional weight loss 08/22/2023 Assessment & Plan (08/23/2023 2:04 AM EDT): She is currently on high dose of Mirtazapine, which initially helped her, but currently she is almost underweight. At this point, what I would recommend is for her to start nutritional supplementation and I will also send her to correspondence coordinator. Labs: CBC, Comprehensive Metabolic Panel, Lipid panel, TSH, Albumin, LD, Sed Rate, C-reactive Colon cancer screening 08/22/2023 Nail abnormalities 08/22/2023 Assessment & Plan (08/23/2023 2:02 AM EDT): She has thickening of nail on the right toe, I will refer to Podiatry Acute vaginitis 08/22/2023 Assessment & Plan (06/09/2024 9:31 AM EST): Reports vaginal discharge for the last 2 days Assessment & Plan (08/23/2023 2:01 AM EDT): We'll do a swab and F/U with results Vaginal discharge 05/01/2023 Housing problems 05/01/2023 Assessment & Plan (05/01/2023 3:59 PM EST): Patient with symptoms of anxiety and currently going through a lot of stress. Reason for visit was to assess symptoms, provide intervention and offer referral. Risk for SI as patient reported having SI thoughts with no plan or intent a week ago. Severe anxiety, sense of isolation and housing insecurities are exacerbating symptoms. Provided psychoeducation around anxiety, recognition of negative thoughts and provide interventions to decrease symptoms. Plan is to refer patientfor OP individual therapy. [facility] crisis line number provided. At this time Georgiana Earl meets criteria for Visit Diagnoses: Problem List Items Addressed This Visit Other Anxiety Housing problems Patient ready to address current needs Yes Strengths include readiness to take action and awareness of the problem PLAN: 1. Follow up with [facility]: Recommended for follow-up: as needed 2. Patient goal is to feel less anxious and be connected with services 3. Behavioral Recommendations a. Referral for OP individual therapy b. Utilize coping mechanisms that works for her to decrease symptoms c. Contact [facility] crisis line if needed (information and number provided) Acute kidney injury superimposed on CKD ([facility]/HCC ) 11/14/2022 Acute pyelonephritis 11/14/2022 Anemia 11/14/2022 E coli bacteremia 11/14/2022 Fall 11/14/2022 Hemorrhoids 11/14/2022 Irritable bowel syndrome wit h both constipation and diarrhea 11/14/2022 Left lumbar radiculopathy 11/14/2022 Rectal candidiasis 11/14/2022 Rectal spasm 11/14/2022 SVT (supraventricular tachycardia) 11/14/2022 UTI (urinary tract infection) 11/14/2022 Dysuria 09/29/2022 Assessment & Plan (01/05/2023 11:02 AM EDT): Patient with complaints of dysuria. Will send urine for culture. CAD (coronary artery disease) 08/01/2022 Anxiety 03/07/2022 Assessment & Plan (02/26/2024 12:43 AM EDT): -Prescribed Hydroxyzine 25 mg as needed for anxiety. -Continue Prozac as currently prescribed. -Pt will be given a list of local therapists Assessment & Plan (05/01/2023 3:59 PM EST): Patient with symptoms of anxiety and currently going through a lot of stress. Reason for visit was to assess symptoms, provide intervention and offer referral. Risk for SI as patient reported having SI thoughts with no plan or intent a week ago. Severe anxiety, sense of isolation and housing insecurities are exacerbating symptoms. Provided psychoeducation around anxiety, recognition of negative thoughts and provide interventions to decrease symptoms. Plan is to refer patientfor OP individual therapy. [facility] crisis line number provided. At this time Georgiana Earl meets criteria for Visit Diagnoses: Problem List Items Addressed This Visit Other Anxiety Housing problems Patient ready to address current needs Yes Strengths include readiness to take action and awareness of the problem PLAN: 1. Follow up with [facility]: Recommended for follow-up: as needed 2. Patient goal is to feel less anxious and be connected with services 3. Behavioral Recommendations a. Referral for OP individual therapy b. Utilize coping mechanisms that works for her to decrease symptoms c. Contact [facility] crisis line if needed (information and number provided) Assessment & Plan (01/05/2023 11:01 AM EDT): Will send Prozac 20 mg. Cardiomyopathy 03/07/2022 Renal osteodystrophy 03/07/2022 Underweight 03/07/2022 Assessment & Plan (03/16/2023 9:46 AM EDT): Patient has had some improvement in her appetite with the use of remeron but still underweight, she has multiple chronic health conditions and will benefit of nutrition supplementation. Chronic kidney disease, stage 4 (severe) 021 Gastroesophageal reflux disease 01/23/2018 Anemia due to chronic blood loss 03/01/2017 Backache 02/19/2015 ICD (implantable cardioverter-defibrillator) in place 02/19/2015 Chronic obstructive pulmonary disease 08/24/2014 Overview (08/01/2022): NOT normally on home O2 NOT normally on home O2 Prolonged QT interval 11/06/2013 Depressive disorder 09/25/2013 Hyperlipidemia 06/19/2012 Assessment & Plan (01/05/2023 11:02 AM EDT): Refill Lipitor 40 mg. Blood in urine 11/29/2011 Sciatica 11/29/2011 Congestive heart failure 11/07/2011 Hypertension 11/07/2011 Assessment & Plan (06/09/2024 9:25 AM EST): Close to controlled. Elevated diastolic. Target < 130/80 mmHg. Cont current meds. Has f/up with nephro on Jul 2024. Assessment & Plan (04/09/2024 11:14 AM EST): Reports poor compliance with medication. Will scheduled for followup. Target BP < 130/80 mmHg given hx of CKD, she has not followed up with CKD. Assessment & Plan (02/25/2024 10:26 PM EDT): Controlled: patient's blood pressure is 136/90 Assessment & Plan (05/01/2023 2:23 PM EST): Controlled: patient's blood pressure is within normal limits,126/84 mmHg. Will not make nay changes at this time. Recommended to keep monitoring at home. Assessment & Plan (03/16/2023 9:03 AM EDT): -Uncontrolled: patient with elevated blood pressure with readings of 176/104 mmHg., had BP retaken at the time of visit with readings of 162/104 mmHg. -Advised to keep monitoring blood pressure at home and take medications to moderate readings. -Follow up in 1 month Assessment & Plan (01/05/2023 11:02 AM EDT): Uncontrolled. At this point will increase hydralazine to 25 mg. Assessment & Plan (11/14/2022 2:29 PM EDT): Reassurance given. -Recommend take BP medication when she gets back to [place] today. -Seek medical attention if she has concerns. -Medication reconciliation with pharmacy was done today. Asthma 11/06/2011 Nephrolithiasis 11/06/2011 Tobacco user 09/13/2011 Resolved Problems Problem Noted Date Diagnosed Date Resolved Date Physical exam 08/22/2023 04/09/2024 Encounter for health-related screening 05/01/2023 04/09/2024 Assessment & Plan (05/01/2023 2:24 PM EST): -Labs: HIV-1/2, Hep. C-Ab. Encounters * This document contains information received from the source organization and may not represent a complete record from that organization. Date Type Department Care Team Description 06/18/2024 Refill [facility] [address], [place] [phone] Kianna Nunez MD 06/17/2024 Telephone [place] [employer] [facility] [address] [place] [phone] Kianna Nunez MD 06/11/2024 Telephone [facility] [address] [place] [address] Kianna Nunez MD 06/09/2024 10:15 AM EST Office Visit [facility] [address] [place] [address] Kianna Nunez MD Primary hypertension (Primary Dx); Chronic right shoulder pain; Acute vaginitis; Dysuria 06/09/2024 Travel 06/05/2024 Telephone [facility] [address] [place] [address] [place] [facility] 05/30/2024 Patient Outreach [facility] [address] [place] [address] Kianna Nunez MD Pre-visit Planning (SDOH was completed on 02/15/2024) 05/14/2024 Telephone [facility] [address] [place] [address] Massiel Chopra, police lieutenant precinct Question (/ /Patient with worsening kidney function, unclear when she last saw Dr. Edouard (medical billing assistant) but strongly /recommended for her to reach to him. /) 05/14/2024 Telephone [facility] [address] [place] [address] Kianna Nunez MD 05/11/2024 Refill [facility] [address] [place] [address] Kianna Nunez MD 05/06/2024 Telephone [facility] [address] [place], [place] [phone] Kianna Nunez MD 05/05/2024 3:30 PM EST Office Visit [facility] [address] [place] [address] Kianna Nunez MD Cognitive and behavioral changes (Primary Dx); Memory deficit; Primary hypertension 05/05/2024 Travel 04/09/2024 10:45 AM EST Office Visit [facility] [address] [place] [address] Kianna Nunez MD Cognitive and behavioral changes (Primary Dx); Encounter for immunization; Primary hypertension 04/09/2024 Travel 04/03/2024 Refill [facility] [address] [place] [address] Kianna Nunez MD Painful spasm of anus 04/02/2024 Patient Outreach [facility] [address] [place] [address] Kianna Nunez MD Pre-visit Planning (Pre-visit planning - LVM, SDOH screening completed on 02/15/2024//) from Last 3 Months Immunizations Name Administration Dates Next Due Hep B, adult 02/02/2006 Influenza High-dose Quadriva lent Preservative Free 03/16/2023,02/20/2022,03/02/2021,05/17 Influenza injectable quadriv alent IIV4 with preservative 08/02/2017,04/20/2016 Influenza injectable quadriv alent preservative free 04/02/2019,05/30/2018,03/05/2017 Influenza, High Dose Seasona l, Preservative Free 02/22/2024 Influenza, IIV3, injectable 02/10/2014 Influenza, Split (incl. sydnee fied surface antigen) 05/06/2012 Influenza, Unspecified 02/20/2022,2020,05/17/2020,02/10 Pfizer Covid-19 Vaccine 12+ 04/09/2024, 4 Pneumococcal Conjugate PCV 20 07/03/2022 Pneumococcal Polysaccharide PPSV23 10/11/2015, TD (adult), 2 Lf tetanus tox oid, preservative free, adsorbed 08/13/2006 Tdap 12/14/2015 Zoster, Recombinant 07/03/2022 Zoster, live 07/03/2022,12/14/2015 Social History Tobacco Use Types Packs/Day Years Used Date Smoking Tobacco: Every Day Cigarettes Smokeless Tobacco: Never Tobacco Cessation:Ready to Q uit: Not Asked; Counseling Given: Not Answered Alcohol Use Standard Drinks/Week Comments Never 0 [...] not to disclose 2021 10:18 AM EDT Last Filed Vital Signs Vital Sign Reading Time Taken Comments Blood Pressure 130/84 06/09/2024 9:21 AM EST Pulse 86 06/09/2024 9:21 AM EST Temperature 36.2 ??C (97.2 ??F) 06/09/2024 9:21 AM ES T Respiratory Rate 18 06/09/2024 9:21 AM EST Oxygen Saturation 98% 06/09/2024 9:21 AM EST Inhaled Oxygen Concentration - - Weight 42.5 kg (93 lb 12.8 oz) 06/09/2024 9:21 A M EST Height 152.4 cm (5') 06/09/2024 9:21 AM EST Body Mass Index 18.32 06/09/2024 9:21 AM EST Plan of Treatment Health Maintenance Due Date Last Done Comments CT Colonography 1954 Colonoscopy 1954 Colorectal Cancer Screening 1954 Dental Oral Exam 1954 FIT DNA/Cologuard 1954 FIT 1954 FOBT 1954 Sigmoidoscopy 1954 Hepatitis B Vaccines (2 of 3 - 19+ 3-dose series) 03/02/2006 02/02/2006 RSV Patients and Patients Aged 60 years or older (1 - Risk 60-74 years 1-dose series) 2014 Mammogram 01/10/2021 01/10/2019, 12/24/2017 Dental Prophylaxis 07/26/2023 01/22/2023 Dental X-Ray: Bitewings 01/24/2024 01/22/2023 Depression Monitoring (PHQ-9) 10/07/2024 04/09/2024, 04/09/2024 SDOH Screening 02/14/2025 02/15/2024 Alcohol/Substance Use Screening 04/09/2025 04/09/2024 Depression Screening 04/09/2025 04/09/2024, 04/09/20 Tobacco Screening 06/09/2025 06/09/2024 DTaP/Tdap/Td Vaccines (2 - Td or Tdap) 12/13/2025 12/14/2015, 08/13/2006 Dental X-Ray: Full Mouth 01/23/2026 01/22/2023 Lipid Panel 05/09/2029 05/09/2024, 08/03, 07/05/2020 Pneumococcal Vaccine: 50+ Years Completed 07/03/2022, 10/11/2015, 08/10/2007 Zoster Vaccines Discontinued 07/03/2022, 06/06, 12/14/2015 Influenza Vaccine Completed 02/22/2024, , 02/20/2022, Additional history exists COVID-19 Vaccine Completed 04/09/2024, , 03/02/2021, Additional history exists Hepatitis C Screening Completed 05/09/2024 HIB Vaccines Aged Out No longer eligi ble based on patient's age to complete this topic HPV Vaccines Aged Out No longer eligi ble based on patient's age to complete this topic Hepatitis A Vaccines Aged Out No long er eligible based on patient's age to complete this topic IPV Vaccines Aged Out No longer eligi ble based on patient's age to complete this topic Meningococcal Vaccine Aged Out No alexis luciano eligible based on patient's age to complete this topic RSV under 20 months Aged Out No longe r eligible based on patient's age to complete this topic Rotavirus Vaccines Aged Out No longer eligible based on patient's age to complete this topic Procedures Procedure Name Priority Date/Time Associated Diagnosis Comments CHLAMYDIA/N. GONORRHOEAE RNA, TMA, UROGENITAL Routine 06/09/2024 10:13 AM EST Acute vaginitis BACTERIAL VAGINOSIS PANEL Routine 06/09/2024 10:13 AM EST Acute vaginitis CULTURE, URINE, ROUTINE Routine 06/09/2024 12:00 AM EST Dysuria TSH W/REFLEX TO FT4 Routine 05/09/2024 2 :01 PM EST Memory deficit C-REACTIVE PROTEIN Routine 05/09/2024 2: 01 PM EST Unintentional weight loss LD Routine 05/09/2024 2:01 PM EST Unintentional weight loss LIPID PANEL, STANDARD Routine 05/09/2024 2:01 PM EST Unintentional weight loss COMPREHENSIVE METABOLIC PANEL Routine 05/09/2024 2:01 PM EST Unintentional weight loss CBC WITH AUTO DIFFERENTIAL Routine 05/09/2024 2:01 PM EST Unintentional weight loss HEPATITIS C AB W/REFL TO HCV RNA, QN, PCR Routine 05/09/2024 2:01 PM EST Physical exam PROPHYLAXIS - ADULT Routine 01/22/2023 2 :00 PM EDT DIAGNOSTIC - DIAGNOSTIC IMAGING - INTRAORAL - COMPREHENSIVE SERIES OF RADIOGRAPHIC IMAGES Routine 01/22/2023 2:00 PM EDT BI MAMMOGRAM SCREENING BILATERAL Routine 01/10/2019 1:40 PM EDT from Last 3 Months or Most Recently Relevant to Health Maintenance Results * (ABNORMAL) Bacterial Vaginosis (06/09/2024 10:13 AM EST) Pathologist [facility] TRICHOMONAS VAGINALIS DETECTION BY PCR DETECTED(A) Not Detect [facility] BACTERIAL VAGINOSIS DETECTION BY PCR NEGATIVE Negative [facility] Comment:The BV organism targ ets of [...] DETECTION BY PCR NOT DETECTED Not Detect [facility] Jeanine glab krusei PCR NOT DETECTED Not Detect [facility] Swab Vaginal structure / Unknown 06/09/2024 10:13 AM EST 06/09/2024 2:19 PM EST us Kianna Nunez MD LAB MICROBIOLOGY - GENERAL OR DERABLES Final Result [facility] [address] [place] [phone] * Chlamydia/N. Gonorrhoeae RNA, TMA, Urogenitial (06/09/2024 10:13 AM EST) Pathologist [facility] CT PCR NOT DETECTED Not Detect. [facility] Comment:A not detected test result does [...] psychologicalconsequences. NG PCR NOT DETECTED Not Detect. [facility] Comment:A not detected test result does [...] AM EST 06/09/2024 2:19 PM EST Narrative [facility] - 06/09/2024 4:19 PM EST Vaginal us Kianna Nunez MD LAB MICROBIOLOGY - GENERAL OR DERABLES Final Result [facility] [address] [place] [phone] * Culture, Urine, Routine (06/09/2024 12:00 AM EST) Urine Urine specimen obtained by clean catch procedure / Unknown 06/09/2024 06/09/2024 Comment:CC Narrative [facility] - 06/11/2024 8:04 AM EST Escherichia coli Quant > 100,000 cfu/mL Escherichia coli: Ampicillin >=32(R) Escherichia coli: Cefazolin 8(S) Escherichia coli: Cefepime <=0.12(S) Escherichia coli: Ceftriaxone <=0.25(S) Escherichia coli: Ciprofloxacin >=4(R) Escherichia coli: Gentamicin <=1(S) Escherichia coli: Nitrofurantoin <=16(S) Escherichia coli: Trimethoprim/Sulfamethoxazole <=20(S) Specimen Source: Urine clean catch Kianna Nunez MD LAB MICROBIOLOGY - GENERAL OR DERABLES Final Result Performing Organization Address [facility] Co de Phone Number [facility] [address] [place] [phone] * TSH W/Reflex to FT4 (05/09/2024 2:01 PM EST) TSH reflex Free T4 1.01 0.32 - 4.0 uIU/mL [facility] Blood Venous blood specimen / Unknown 05/09/2024 2:01 PM EST 05/09/2024 3:54 PM EST Kianna Nunez MD LAB BLOOD ORDERABLES Final Re sult Performing Organization Address [facility] Co de Phone Number [facility] [address] [place] [phone] * (ABNORMAL) CBC auto differential (05/09/2024 2:01 PM EST) White Blood Count 5.7 4.8 - 10.8 X10*3/uL [facility] Red Blood Count 4.08(L) 4.20 - 5.50 X10*6/uL [facility] Hemoglobin 12.2 12.0 - 16.0 g/dl [facility] Hematocrit 37.2 37.0 - 47.0 % [facility] Mean Corpuscular Volume 91.2 80.0 - 98.0 fL [facility] Mean Corpuscular Hemoglobin 29.9 27.0 - 33.0 pg [facility] Mean Corpuscular HGB Conc 32.8 31.0 - 35.0 g/dl [facility] Red Cell Distribution Width 15.0 11.0 - 16.0 % [facility] Platelet Count 300 160 - 400 X10*3/uL [facility] Mean Platelet Volume 9.6 9.4 - 12.3 fL [facility] Neutrophils Percent Auto 45.0 45 - 73 % [facility] Imm Gran Pct Auto 0.2 0.0 - 0.4 % [facility] Lymphocytes Percent Auto 41.9(H) 20 - 40 % [facility] Monocytes Percent Auto 9.0 2 - 11 % [facility] Eosinophils Percent Auto 2.8 0 - 4 % [facility] Basophils Percent Auto 1.1 0 - 2 % [facility] NRBC Pct Auto 0.0 0.0 - 0.2 /100WBC [facility] Neutrophils Absolute Auto 2.6 2.0 - 8.3 x10*3/uL [facility] Imm Gran Abs Auto 0.01 0.00 - 0.03 X10*3/uL [facility] Lymphocytes Absolute Auto 2.4 1.2 - 4.9 X10*3/uL [facility] Monocytes Absolute Auto 0.5 0.1 - 1.2 X10*3/uL [facility] Eosinophils Absolute Auto 0.2 0.0 - 0.4 X10*3/uL [facility] Basophils Absolute Auto 0.1 0.0 - 0.2 X10*3/uL [facility] NRBC Abs Auto 0.000 0.0 - 0.012 X10*3/uL [facility] Blood Venous blood specimen / Unknown 05/09/2024 2:01 PM EST 05/09/2024 3:54 PM EST us Kianna Nunez MD LAB BLOOD ORDERABLES Final Re sult [facility] [address] [place] [phone] * Hepatitis C Antibody with Reflex to HCV, RNA, Quantitative, Real-Time PCR (05/09/2024 2:01 PM EST) Hepatitis C Antibody Nonreactive Nonreactive [facility] Comment:Antibodies to HCV no t detected; does not exclude early acuteHCV infection. Blood Venous blood specimen / Unknown 05/09/2024 2:01 PM EST 05/09/2024 3:54 PM EST Kianna Nunez MD LAB BLOOD ORDERABLES Final Re sult Performing Organization Address [facility] Co de Phone Number [facility] [address] [place] [phone] * C-reactive Protein (05/09/2024 2:01 PM EST) C Reactive Protein <0.04 < or = 0.50 mg/dL [facility] Blood Venous blood specimen / Unknown 05/09/2024 2:01 PM EST 05/09/2024 3:54 PM EST Result [facility] Kianna Nunez MD LAB BLOOD ORDERABLES Final Re sult Performing Organization Address [facility] Co de Phone Number [facility] [address] [place] [phone] * (ABNORMAL) Lactate Dehydrogenase (LD) (05/09/2024 2:01 PM EST) Lactate Dehydrogenase 290(H) 122 - 220 U/L [facility] Blood Venous blood specimen / Unknown 05/09/2024 2:01 PM EST 05/09/2024 3:54 PM EST Kianna Nunez MD LAB BLOOD ORDERABLES Final Re sult Performing Organization Address [facility] Co de Phone Number [facility] [address] [place] [phone] * Lipid Panel, Standard (05/09/2024 2:01 PM EST) Triglycerides 82 <150 mg/dL [facility] Comment:Desirable Triglyceri de: less than 150 mg/dLBorderline High Triglyceride 150-199 mg/dLHigh Triglyceride: 200-499 mg/dLVery High Triglyceride: greater than or equal to 5OO mg/dL Cholesterol 161 <200 mg/dL [facility] Comment:Desirable Cholestero l: less than 200 mg/dLBorderline High Cholesterol: 200-239 mg/dLHigh Cholesterol: greater than 239 mg/dL LDL Cholesterol Calculated 87 <100 mg/dL [facility] Comment:Desirable LDL: less than 100 mg/dLNear Optimal/Above Optimal LDL: 110- 129 mg/dLBorderline High LDL: 130-159 mg/dLHigh LDL: 160-189 mg/dLVery High LDL: greater than or equal to 190 mg/dL HDL Cholesterol 58 >40 mg/dL [facility] Comment:Desirable HDL: great er than 40 mg/dL Note: This HDL assay may give artificially low results in patients with liver disease. Blood Venous blood specimen / Unknown 05/09/2024 2:01 PM EST 05/09/2024 3:54 PM EST us Kianna Nunez MD LAB BLOOD ORDERABLES Final Re sult [facility] [address] [place] [phone] * (ABNORMAL) Comprehensive Metabolic Panel (05/09/2024 2:01 PM EST) Sodium 144 135 - 145 mmol/L [facility] Potassium 4.2 3.3 - 5.1 mmol/L [facility] Chloride 109(H) 96 - 108 mmol/L [facility] Carbon Dioxide 26 22 - 29 mmol/L [facility] Anion Gap 13 12 - 20 [facility] Urea Nitrogen (BUN) 26(H) 9 - 16 mg/dL [facility] Creatinine, Serum 3.36(H) 0.5 - 1.4 mg/dL [facility] Estimated Glomerular Filt Rate 14 [facility] Comment:Chronic Kidney Disea se: Estimated GFR < 60 mL/min/[id number] Kidney Disease: Estimated GFR < 15 mL/min/1.73m2 Glucose 148(H) 60 - 115 mg/dL [facility] Calcium 9.8 8.4 - 10.2 mg/dL [facility] Bilirubin, Total 0.4 0.0 - 1.0 mg/dL [facility] Aspartate Amino Transferase 24 5 - 31 U/L [facility] Alanine Aminotransferase 12 0 - 31 U/L [facility] Total Protein 8.0 6.5 - 8.0 g/dL [facility] Albumin Level 4.2 3.5 - 5.0 g/dL [facility] Alkaline Phosphatase 72 39 - 117 U/L [facility] Blood Venous blood specimen / Unknown 05/09/2024 2:01 PM EST 05/09/2024 3:54 PM EST us Kianna Nunez MD LAB BLOOD ORDERABLES Final Re sult [facility] [address] [place], [place] [phone] * DIGITAL BILATERAL SCREEN 1 (01/10/2019 1:40 PM EDT) Anatomical Region Laterality Modality Breast Bilateral Mammography 01/10/2019 1:40 PM EDT Narrative 01/10/2019 1:43 PM EDT Refer to the Notes tab for result details [facility] Procedure: DIGITAL BILATERAL SCREEN 1 Procedure Note Provider, MD Chacho - 08/26/2022 Refer to the Notes tab for result details Legacy Procedure: DIGITAL BILATERAL SCREEN 1 us Jose Syed FLAME BURNER IMG BI PROCEDURES Final Result from Last 3 Months or Most Recently Relevant to Health Maintenance Insurance [facility] [place] [facility] Care Teams City Treasurer Relationship Specialty Start Date End Date Kianna Nunez MD [address] [place] [address] PCP - General Family Medicine 02/02/20 Kleber Liu MD Clinical Pharmacy Technician 06/04/04 Anaya Parikh OD Optometry 04/09/24 Dorian Edouard Psychiatry Resident 06/04/04 [facility] On Site Coordinator 04/09/24
--- OUTSIDE RECORDS SUMMARY | 2024-07-03 16:47 | XMS_ITS | Encounter Summary ---
Author Organization [employer] [facility] Address [address] 7t [place] [address] Care Team Providers Care Textile Worker Name Role Phone Kianna Nunez MD Primary Care Provider [phone] Encounter Details Date Type Department Care Team (Late st Contact Info) Description 08/31/2022 Orders Only [facility] MED & PEDS [address] [place], [place] [phone] Timothy Ibrahim MD [address] [place] [address] Social History Tobacco Use Types Packs/Day Years [...] suspected to have Coronavirus/COVID-19? No / Unsure 08/17/2022 2:15 PM EDT documented as of this encounter Plan of Treatment Not on file documented as of this encounter Procedures Procedure Name Priority Date/Time Associated Diagnosis Comments CULTURE, URINE, ROUTINE Routine 01/05/2023 10:30 AM EDT documented in this encounter Results * Culture, Urine, Routine (01/05/2023 10:30 AM EDT) Urine specimen obtained by clean catch procedure / Unknown 01/05/2023 10:30 AM EDT 01/05/2023 2:58 PM EDT Comment:UACC Narrative [facility] - 01/07/2023 7:34 AM EDT Escherichia coli Quant > 100,000 cfu/mL Escherichia coli: Ampicillin >=32(R) Escherichia coli: Ceftriaxone <=0.25(S) Escherichia coli: Gentamicin <=1(S) Escherichia coli: Levofloxacin >=8(R) Escherichia coli: Nitrofurantoin <=16(S) Escherichia coli: Trimethoprim/Sulfamethoxazole <=20(S) Specimen Source: Urine clean catch us Kianna Nunez MD LAB MICROBIOLOGY - GENERAL OR DERABLES Final Result [facility] [address] [place] [phone] documented in this encounter Visit Diagnoses Not on filedocumented in this encounter Care Teams Textile Worker Relationship Specialty Start Date End Date Kianna Nunez MD [address] [place] [address] PCP - General Family Medicine 02/02/20 Kleber Liu MD Equity Sales Assistant 06/04/04 Anaya Parikh OD Optometry 04/09/24 Dorian Edouard Substance Abuse Nurse 06/04/04 [facility] Senior Interactive Producer 04/09/24 documented as of this encounter
== END 2024-07-03 12:56 | disposition home or self-care (01) ==
LOC: HO.LAB 12:55
PROVIDERS: Absent Provider Family Medicine; PCP Family Medicine; Visit Provider Psychiatry & Neurology Neurology
DX: G31.84 Mild cognitive impairment of uncertain or unknown etiology (principal)
CPT/HCPCS: 36415; 82607

== ENCOUNTER 2024-07-04 08:42 | Outpatient (REF) | payer OTHER, SELFPAY ==
--- OUTSIDE RECORDS SUMMARY | 2024-07-07 09:02 | XMS_ITS | Encounter Summary ---
Author Organization [employer] Address [address] [place] [address] Care Team Providers Care Cook Camp Name Role Phone Kianna Nunez MD Primary Care Provider [phone] Reason for Visit * Reason Comments Med Refill Encounter Details Date Type Department Care Team ([facility] st Contact Info) Description 02/20/2023 Refill [facility] MED & PEDS [address] [place], [place] [phone] Kianna Nunez MD [address] [place], [place] [phone] Primary hypertension Social History Tobacco Use Types [...] hypertension documented in this encounter Care Teams Cook Camp Relationship Specialty Start Date End Date Kianna Nunez MD [address] [place], [place] [phone] PCP - General Family Medicine 02/02/20 Kleber Liu MD Receipt And Report Clerk 06/04/04 Anaya Parikh OD Optometry 04/09/24 Dorian Edouard Tape Controlled Machine Stitcher 06/04/04 [facility] Weather Clerk 04/09/24 documented as of this encounter
--- OUTSIDE RECORDS SUMMARY | 2024-07-07 09:02 | XMS_ITS | Encounter Summary ---
Author Organization [employer] Address [address] [place] [address] Care Team Providers Care Expert Medical Writer Name Role Phone Kianna Nunez MD Primary Care Provider [phone] Reason for Visit * Reason Onset Date Comments Pre-op Exam 11/15/2023 Encounter Details Date Type Department Care Team ([facility] st Contact Info) Description 11/15/2023 Telephone [facility] MED & PEDS [address] [place] [address] Kianna Nunez MD [address] [place] [address] Pre-op Exam Social History Tobacco Use Types [...] with others, in a hotel, in a senior living, living outside on the street, on a [...] no Surgeon's name: Dr. Agustin Facility name: [facility] Surgeon's office number: [phone] Surgeon's office fax number: [phone] Contact name (person you spoke with): Kelli Cruz office note from surgeon requested: Pre-Op notes documented in this encounter Plan of Treatment Not on file documented as of this encounter Visit Diagnoses Not on filedocumented in this encounter Additional Health Concerns Assessment Noted Time PHQ-9 Depression Total Score: 0 05/01/20 23 2:20 PM EST documented as of this encounter Care Teams Expert Medical Writer Relationship Specialty Start Date End Date Kianna Nunez MD [address] [place] [address] PCP - General Family Medicine 02/02/20 Kleber Liu MD Buffet Server 06/04/04 Anaya Parikh OD Optometry 04/09/24 Dorian Edouard Briefcase Sewer 06/04/04 [facility] Valet 04/09/24 documented as of this encounter
--- OUTSIDE RECORDS SUMMARY | 2024-07-07 09:02 | XMS_ITS | Encounter Summary ---
Author Organization [employer] Address [address] [facility] 7t [place] [address] Care Team Providers Care Burlesque Dancer Name Role Phone Kianna Nunez MD Primary Care Provider [phone] Reason for Referral * Consultation (Routine) - Pending Review Specialty Diagnoses / Procedures Referred By Bryan anderson Referred To Contact Orthopaedic Surgery Diagnoses Chronic right shoulder pain Kianna Nunez MD [address] [place] [address] Phone: tel: fax: [facility] [address] [place] [address] Phone: tel: Referral ID Status Reason Start Date Expiration Date Visits Requested Visits Authorized [id number] Pending Review Specialty Services Required 06/09/2024 06/09/2025 1 1 Reason for Visit * Reason Comments Hypertension Shoulder Pain Encounter Details Date Type Department Care Team (Late st Contact Info) Description 06/09/2024 10:15 AM EST Office Visit [facility] MED & PEDS [address] [place] [address] Kianna Nunez MD [address] [place] [address] Primary hypertension (Primary Dx); Chronic right shoulder [...] , Physical Exam Exam conducted with a ad trafficker present. Constitutional: General: She is not in [...] EST) CT PCR NOT DETECTED Not Detect. [facility] Comment:A not detected test result [...] psychologicalconsequences. NG PCR NOT DETECTED Not Detect. [facility] Comment:A not detected test result [...] AM EST 06/09/2024 2:19 PM EST Narrative [facility] - 06/09/2024 4:19 PM EST Vaginal us Kianna Nunez MD LAB MICROBIOLOGY - GENERAL OR DERABLES Final Result [facility] [address] [place] [phone] * (ABNORMAL) Bacterial Vaginosis (06/09/2024 10:13 AM EST) TRICHOMONAS VAGINALIS DETECTION BY PCR DETECTED(A) Not Detect [facility] BACTERIAL VAGINOSIS DETECTION BY PCR NEGATIVE Negative [facility] Comment:The BV organism targ ets [...] DETECTION BY PCR NOT DETECTED Not Detect [facility] Jeanine glab krusei PCR NOT DETECTED Not Detect [facility] Swab Vaginal structure / Unknown 06/09/2024 10:13 AM EST 06/09/2024 2:19 PM EST Kianna Nunez MD LAB MICROBIOLOGY - GENERAL OR DERABLES Final Result Performing Organization Address City/State/[facility] Co de Phone Number [facility] [address] [place] [phone] * Culture, Urine, Routine (06/09/2024 12:00 AM EST) Urine Urine specimen obtained by clean catch procedure / Unknown 06/09/2024 06/09/2024 Comment:UACC Narrative [facility] - 06/11/2024 8:04 AM EST Escherichia coli Quant > 100,000 cfu/mL Escherichia coli: Ampicillin >=32(R) Escherichia coli: Cefazolin 8(S) Escherichia coli: Cefepime <=0.12(S) Escherichia coli: Ceftriaxone <=0.25(S) Escherichia coli: Ciprofloxacin >=4(R) Escherichia coli: Gentamicin <=1(S) Escherichia coli: Nitrofurantoin <=16(S) Escherichia coli: Trimethoprim/Sulfamethoxazole <=20(S) Specimen Source: Urine clean catch Kianna Nunez MD LAB MICROBIOLOGY - GENERAL OR DERABLES Final Result [facility] [address] [place] [phone] [phone] documented in this encounter Visit Diagnoses Diagnosis Primary hypertension- Primary Unspecified essential hypertension Chronic right shoulder pain Pain in joint, shoulder region Acute vaginitis Unspecified vaginitis and vulvovaginitis Dysuria documented in this encounter Additional Health Concerns Assessment Noted Time PHQ-9 Depression Total Score: 18 024 10:34 AM EST documented as of this encounter Care Teams Burlesque Dancer Relationship Specialty Start Date End Date Kianna Nunez MD [address] [place] [address] PCP - General Family Medicine 02/02/20 Kleber Liu MD Aquatics Coordinator 06/04/04 Anaya Parikh OD Optometry 04/09/24 Dorian Edouard Numerical Control Drill Press Operator 06/04/04 [facility] Used Car Salesperson 04/09/24 documented as of this encounter
--- OUTSIDE RECORDS SUMMARY | 2024-07-07 09:02 | XMS_ITS | Encounter Summary ---
Author Organization [employer] Address [address] [place] [address] Care Team Providers Care Security Associate Name Role Phone Kianna Nunez MD Primary Care Provider [phone] Reason for Visit * Reason Onset Date Comments Nurse Triage 01/08/2024 Encounter Details Date Type Department Care Team (Late st Contact Info) Description 01/08/2024 Telephone [facility] MEDICINE [address] [place] [address] Kianna Nunez MD [address] [place] [address] Nurse Triage Social History Tobacco Use Types [...] with others, in a hotel, in a fpc, living outside on the street, on a [...] to speak for Pt. Pt only speaks [place]. Pt has been having some rectal bleeding [...] 01/08/2024 2:20 PM EDT Triage call with [facility] [place] Technician [place] [id number]. Call to [phone] unable to get connection, callto [phone] unable to get connection. * Telephone Encounter - Ruba Hinson - 01/08/2024 2:09 PM EDT Symptoms: Body Aches, Urination Pain Outcome: Schedule an urgent appointment (within 1 hour) or talk to a nurse or provider soon Reason: Severe pain now The caller accepted this outcome Please contact at [phone] documented in this encounter Plan of Treatment Not on file documented as of this encounter Visit Diagnoses Not on filedocumented in this encounter Additional Health Concerns Assessment Noted Time PHQ-9 Depression Total Score: 0 05/01/20 23 2:20 PM EST documented as of this encounter Care Teams Security Associate Relationship Specialty Start Date End Date Kianna Nunez MD [address] [place] [address] PCP - General Family Medicine 02/02/20 Kleber Liu MD Program Supervisor 06/04/04 Anaya Parikh OD Optometry 04/09/24 Dorian Edouard Nibbler Operator 06/04/04 [facility] Environmental Systems Coordinator 04/09/24 documented as of this encounter
--- OUTSIDE RECORDS SUMMARY | 2024-07-07 09:02 | XMS_ITS | Encounter Summary ---
Author Organization [employer] Address [address] 7[address] [place] [address] Care Team Providers Care Ui Lead Developer Name Role Phone Kianna Nunez MD Primary Care Provider Encounter Details Date Type Department Care Team [...] is your housing situation today? I have torjuilto kraus 02/15/[address] you [...] documented as of this encounter Care Teams Ui Lead Developer Relationship Specialty Start Date End Date Kianna Nunez MD [address] [place] [address] PCP - General Family Medicine 02/02/20 Kleber Liu MD Door Puller 06/04/04 Anaya Parkih OD Optometry 04/09/24 Dorian Edouard Track Laying Supervisor 06/04/04 [facility] Deputy Sheriff Generalist/Bailiff 04/09/24 documented as of this encounter
--- OUTSIDE RECORDS SUMMARY | 2024-07-07 09:03 | XMS_ITS | Encounter Summary ---
Author Organization [employer] Address [address] 7[address] [place] [address] Care Team Providers Care Supervisor [employer] Name Role Phone Kianna Nunez MD Primary Care Provider [phone] Reason for Visit * Reason Comments Med Refill Encounter Details Date Type Department Care Team ([facility] st Contact Info) Description 06/18/[address] [facility] CH[facility] MED & PEDS [address] [place], [place] [phone] Kianna Nunez MD [address] [place] [address] Social History Tobacco Use Types Packs/Day Years [...] documented as of this encounter Care Teams Supervisor [employer] Relationship Specialty Start Date End Date Kianna Nunez MD [address] [place] [address] PCP - General Family Medicine 02/02/20 Kleber Liu MD Diesel Engine Erector 06/04/04 Anaya Parikh OD Optometry 04/09/24 Dorian Edouard Netting Weaver 06/04/04 [facility] Timber Management Specialist 04/09/24 documented as of this encounter
--- OUTSIDE RECORDS SUMMARY | 2024-07-07 09:03 | XMS_ITS | Encounter Summary ---
Author Organization [employer] Address [address] [place] [address] Care Team Providers Care Insulating Machine Operator Name Role Phone Kianna Nunez MD Primary Care Provider [phone] Encounter Details Date Type Department Care Team (Late st Contact Info) Description 06/11/2024 Telephone [facility] MED [facility] PEDS [address] [place] [address] Kianna Nunez MD [address] [place] [address] Social History Tobacco Use Types Packs/Day Years [...] 10:15 AM EST TC to patient via seismic interpreter #[id number]; no answer, message left for patient to return call. * Telephone Encounter - Flower Rodas RN - 06/12/2024 11:57 AM EST TC to patient via seismic interpreter #[id number]. No answer, left message to return call. * Telephone Encounter - Kianna Nunez MD - 06/11/2024 1:38 PM EST [facility] Team! Can you please call Georgiana Earl and inform about results? Patient lab results show BV, sent metronidazole to [facility], attempt calling earlier but no answer LVM. [...] documented as of this encounter Care Teams Insulating Machine Operator Relationship Specialty Start Date End Date Kianna Nunez MD [address] [place] [address] PCP - General Family Medicine 02/02/20 Kleber Liu MD Try Out Person 06/04/04 Anaya Parikh OD Optometry 04/09/24 Dorian Edouard Batch And Furnace Manager 06/04/04 [facility] Automatic Pinsetter Mechanic 04/09/24 documented as of this encounter
--- OUTSIDE RECORDS SUMMARY | 2024-07-07 09:03 | XMS_ITS | Encounter Summary ---
Author Organization [employer] Address [address] [place] [address] Care Team Providers Care Harness Installer Name Role Phone Kianna Nunez MD Primary Care Provider [phone] Encounter Details Date Type Department Care Team (Late st Contact Info) Description 06/17/2024 Telephone [facility] [address] [place] [address] Kianna Nunez MD [address] [place], [place] [phone] Social History Tobacco Use Types Packs/Day Years [...] documented as of this encounter Care Teams Harness Installer Relationship Specialty Start Date End Date Kianna Nunez MD [address] [place] [address] PCP - General Family Medicine 02/02/20 Kleber Liu MD Deputy Of Counter Intelligence 06/04/04 Anaya Parikh OD Optometry 04/09/24 Dorian Edouard Shut Off Worker 06/04/04 [facility] Senior Design Engineer 04/09/24 documented as of this encounter
--- OUTSIDE RECORDS SUMMARY | 2024-07-07 09:04 | XMS_ITS | Encounter Summary ---
Author Organization [email or web address] [facility] Address [address] [place] [address] Care Team Providers Care Room Manager Name Role Phone Kianna Nunez MD Primary Care Provider Reason for Visit * Reason Onset Date Comments insurance update 10/05/2022 Appointment 10/05/2022 Encounter Details Date Type Department Care Team (Late st Contact Info) Description 10/05/2022 Telephone [facility] [address] [place] [address] Felisha Burkett DDS insurance update; Appointment Social [...] - 10/05/2022 10:06 AM EDT Bartolo from [facility] called in stating that patient had appt a couple of days ago but was unable to be seen due to apparently having no insurance coverage. She does have coverage through [facility] benefit providers. The id number for the dental portion would be [id number]. Please update insurance info and contact patient for rescheduling DR documented in this encounter Plan of Treatment Not on file documented as of this encounter Visit Diagnoses Not on filedocumented in this encounter Care Teams Room Manager Relationship Specialty Start Date End Date Kianna Nunez MD [address] [place] [address] PCP - General Family Medicine 02/02/20 Kleber Liu MD News Assistant 06/04/04 Anaya Parikh OD Optometry 04/09/24 Dorian Edouard Body Welder 06/04/04 [facility] Shale Processing Technician 04/09/24 documented as of this encounter
--- OUTSIDE RECORDS SUMMARY | 2024-07-07 09:04 | XMS_ITS | Clinical Summary ---
Author Organization [employer] Address [address] [facility] 7[address] [place] [address] Care Team Providers Care Non Food Receiving Clerk Name Role Phone Kianna Nunez MD Primary Care Provider [phone] Allergies Active Allergy Reactions Criticality Noted Date [...] MORNING AND IN THE EVENING 90 tablet 01/07/20 24 Active Ascorbic Acid (vitamin C) [...] referred for therapy and information given to granddaughter/PICKLE SORTER. Assessment & Plan (04/09/2024 11:16 AM EST): [...] and I will also send her to baffle installer. Labs: CBC, Comprehensive Metabolic Panel, Lipid panel, [...] is to refer patientfor OP individual therapy. [facility] crisis line number provided. At this time Georgiana Earl meets criteria for Visit Diagnoses: Problem List Items Addressed This Visit Other Anxiety Housing problems Patient ready to address current needs Yes Strengths include readiness to take action and awareness of the problem PLAN: 1. Follow up with [facility]: Recommended for follow-up: as needed 2. Patient goal is to feel less anxious and be connected with services 3. Behavioral Recommendations a. Referral for OP individual therapy b. Utilize coping mechanisms that works for her to decrease symptoms c. Contact [facility] crisis line if needed (information and number provided) Acute kidney injury superimposed on CKD ([facility]/HCC ) 11/14/2022 Acute pyelonephritis 11/14/2022 Anemia 11/14/2022 [...] is to refer patientfor OP individual therapy. [facility] crisis line number provided. At this time Georgiana Earl meets criteria for Visit Diagnoses: Problem List Items Addressed This Visit Other Anxiety Housing problems Patient ready to address current needs Yes Strengths include readiness to take action and awareness of the problem PLAN: 1. Follow up with [facility]: Recommended for follow-up: as needed 2. Patient goal is to feel less anxious and be connected with services 3. Behavioral Recommendations a. Referral for OP individual therapy b. Utilize coping mechanisms that works for her to decrease symptoms c. Contact [facility] crisis line if needed (information and [...] BP medication when she gets back to [place] today. -Seek medical attention if she has [...] Type Department Care Team Description 06/18/2024 Refill [facility] [address] [place], [place] [phone] Kianna Nunez MD 06/17/2024 Telephone [place] [facility] Information Management [address] [place] [phone] Kianna Nunez MD 06/11/2024 Telephone [facility] [address] [place] [address] Kianna Nunez MD 06/09/2024 10:15 AM EST Office Visit [facility] [address] [place] [address] Kianna Nunez MD Primary hypertension (Primary Dx); Chronic right shoulder pain; Acute vaginitis; Dysuria 06/09/2024 Travel 06/05/2024 Telephone [facility] [address] [place] [address] [place] NAIL STICKER 05/30/2024 Patient Outreach [facility] [address] [place] [address] Kianna Nunez MD Pre-visit Planning (SDOH was completed on 02/15/2024) 05/14/2024 Telephone [facility] [address] [place] [address] Massiel Chopra, legal instruments examiner Question (/ /Patient with worsening kidney function, unclear when she last saw Dr. Edouard ([employer] certified network associate) but strongly /recommended for her to reach to him. /) 05/14/2024 Telephone [facility] [address] [place] [address] Kianna Nunez MD 05/11/2024 Refill [facility] [address] [place] [address] Kianna Nunez MD 05/06/2024 Telephone [place] [facility] [address] [place], [place] [phone] Kianna Nunez MD 05/05/2024 3:30 PM EST Office Visit [facility] [address] [place] [address] Kianna Nunez MD Cognitive and behavioral changes (Primary Dx); Memory deficit; Primary hypertension 05/05/2024 Travel 04/09/2024 10:45 AM EST Office Visit [facility] [address] [place] [address] Kianna Nunez MD Cognitive and behavioral changes (Primary Dx); Encounter for immunization; Primary hypertension 04/09/2024 Travel from Last 3 Months Immunizations Name Administration [...] Unspecified 02/20/2022,2020,05/17/2020,02/10 Pfizer Covid-19 Vaccine 12+ 04/09/2024, Pneumococcal Conjugate PCV 20 07/03/2022 Pneumococcal Polysaccharide [...] 04/09/2025 04/09/2024 Depression Screening 04/09/2025 04/09/2024, 04/09/20 24 Tobacco Screening 06/09/2025 06/09/2024 DTaP/Tdap/Td Vaccines (2 [...] VAGINALIS DETECTION BY PCR DETECTED(A) Not Detect [facility] BACTERIAL VAGINOSIS DETECTION BY PCR NEGATIVE Negative [facility] Comment:The BV organism targ ets of [...] DETECTION BY PCR NOT DETECTED Not Detect [facility] Jeanine glab krusei PCR NOT DETECTED Not Detect [facility] Swab Vaginal structure / Unknown 06/09/2024 10:13 AM EST 06/09/2024 2:19 PM EST us Kianna Nunez MD LAB MICROBIOLOGY - GENERAL OR DERABLES Final Result [facility] [address] [place] [phone] * Chlamydia/N. Gonorrhoeae RNA, TMA, Urogenitial (06/09/2024 10:13 AM EST) Pathologist [facility] CT PCR NOT DETECTED Not Detect. [facility] Comment:A not detected test result does [...] psychologicalconsequences. NG PCR NOT DETECTED Not Detect. [facility] Comment:A not detected test result does [...] AM EST 06/09/2024 2:19 PM EST Narrative [facility] - 06/09/2024 4:19 PM EST Vaginal Kianna Nunez MD LAB MICROBIOLOGY - GENERAL OR DERABLES Final Result [facility] [address] [place] [phone] * Culture, Urine, Routine (06/09/2024 12:00 AM EST) Urine Urine specimen obtained by clean catch procedure / Unknown 06/09/2024 06/09/2024 Comment:[facility] - 06/11/2024 8:04 AM EST Escherichia coli Quant > 100,000 cfu/mL Escherichia coli: Ampicillin >=32(R) Escherichia coli: Cefazolin 8(S) Escherichia coli: Cefepime <=0.12(S) Escherichia coli: Ceftriaxone <=0.25(S) Escherichia coli: Ciprofloxacin >=4(R) Escherichia coli: Gentamicin <=1(S) Escherichia coli: Nitrofurantoin <=16(S) Escherichia coli: Trimethoprim/Sulfamethoxazole <=20(S) Specimen Source: Urine clean catch Kianna Nunez MD LAB MICROBIOLOGY - GENERAL OR DERABLES Final Result Performing Organization Address [facility]/ZIP Co de Phone Number [facility] [address] [place] [phone] * TSH W/Reflex to FT4 (05/09/2024 2:01 PM EST) Pathologist [facility] TSH reflex Free T4 1.01 0.32 - 4.0 uIU/mL [facility] Blood Venous blood specimen / Unknown 05/09/2024 2:01 PM EST 05/09/2024 3:54 PM EST Kianna Nunez MD LAB BLOOD ORDERABLES Final Re sult Performing Organization Address [facility]/ZIP Co de Phone Number [facility] [address] [place] [phone] * (ABNORMAL) CBC auto differential (05/09/2024 2:01 PM EST) [facility] White Blood Count 5.7 4.8 - 10.8 X10*3/uL [facility] Red Blood Count 4.08(L) 4.20 - 5.50 X10*6/uL [facility] Hemoglobin 12.2 12.0 - 16.0 g/dl [facility] Hematocrit 37.2 37.0 - 47.0 % [facility] Mean Corpuscular Volume 91.2 80.0 - 98.0 fL [facility] Mean Corpuscular Hemoglobin 29.9 27.0 - 33.0 pg [facility] Mean Corpuscular HGB Conc 32.8 31.0 - 35.0 g/dl [facility] Red Cell Distribution Width 15.0 11.0 - 16.0 % [facility] Platelet Count 300 160 - 400 X10*3/uL [facility] Mean Platelet Volume 9.6 9.4 - 12.3 fL [facility] Neutrophils Percent Auto 45.0 45 - 73 % [facility] Imm Gran Pct Auto 0.2 0.0 - 0.4 % [facility] Lymphocytes Percent Auto 41.9(H) 20 - 40 % [facility] Monocytes Percent Auto 9.0 2 - 11 % [facility] Eosinophils Percent Auto 2.8 0 - 4 % [facility] Basophils Percent Auto 1.1 0 - 2 % [facility] NRBC Pct Auto 0.0 0.0 - 0.2 /100WBC [facility] Neutrophils Absolute Auto 2.6 2.0 - 8.3 x10*3/uL [facility] Imm Gran Abs Auto 0.01 0.00 - 0.03 X10*3/uL [facility] Lymphocytes Absolute Auto 2.4 1.2 - 4.9 X10*3/uL [facility] Monocytes Absolute Auto 0.5 0.1 - 1.2 X10*3/uL [facility] Eosinophils Absolute Auto 0.2 0.0 - 0.4 X10*3/uL [facility] Basophils Absolute Auto 0.1 0.0 - 0.2 X10*3/uL [facility] NRBC Abs Auto 0.000 0.0 - 0.012 X10*3/uL [facility] Blood Venous blood specimen / Unknown 05/09/2024 2:01 PM EST 05/09/2024 3:54 PM EST Kianna Nunez MD LAB BLOOD ORDERABLES Final Re sult [facility] [address] [place] [phone] * Hepatitis C Antibody with Reflex to HCV, RNA, Quantitative, Real-Time PCR (05/09/2024 2:01 PM EST) Hepatitis C Antibody Nonreactive Nonreactive [facility] Comment:Antibodies to HCV no t detected; does not exclude early acuteHCV infection. Blood Venous blood specimen / Unknown 05/09/2024 2:01 PM EST 05/09/2024 3:54 PM EST Kianna Nunez MD LAB BLOOD ORDERABLES Final Re sult Performing Organization Address [facility] Co de Phone Number [facility] [address] [place] [phone] * C-reactive Protein (05/09/2024 2:01 PM EST) C Reactive Protein <0.04 < or = 0.50 mg/dL [facility] Blood Venous blood specimen / Unknown 05/09/2024 2:01 PM EST 05/09/2024 3:54 PM EST Kianna Nunez MD LAB BLOOD ORDERABLES Final Re sult Performing Organization Address [facility] Phone Number [facility] [address] [place] [phone] * (ABNORMAL) Lactate Dehydrogenase (LD) (05/09/2024 2:01 PM EST) Lactate Dehydrogenase 290(H) 122 - 220 U/L [facility] Blood Venous blood specimen / Unknown 05/09/2024 2:01 PM EST 05/09/2024 3:54 PM EST Kianna Nunez MD LAB BLOOD ORDERABLES Final Re sult Performing Organization Address [facility] Co ok Phone Number [facility] [address] [place] [phone] * Lipid Panel, Standard (05/09/2024 2:01 PM EST) Triglycerides 82 <150 mg/dL [facility] Comment:Desirable Triglyceri de: less than 150 mg/dLBorderline High Triglyceride 150-199 mg/dLHigh Triglyceride: 200-499 mg/dLVery High Triglyceride: greater than or equal to 5OO mg/dL Cholesterol 161 <200 mg/dL [facility] Comment:Desirable Cholestero l: less than 200 mg/dLBorderline High Cholesterol: 200-239 mg/dLHigh Cholesterol: greater than 239 mg/dL LDL Cholesterol Calculated 87 <100 mg/dL [facility] Comment:Desirable LDL: less than 100 mg/dLNear Optimal/Above Optimal LDL: 110- 129 mg/dLBorderline High LDL: 130-159 mg/dLHigh LDL: 160-189 mg/dLVery High LDL: greater than or equal to 190 mg/dL HDL Cholesterol 58 >40 mg/dL [facility] Comment:Desirable HDL: great er than 40 mg/dL Note: This HDL assay may give artificially low results in patients with liver disease. Blood Venous blood specimen / Unknown 05/09/2024 2:01 PM EST 05/09/2024 3:54 PM EST us Kianna Nunez MD LAB BLOOD ORDERABLES Final Re sult [facility] [address] [place] [phone] * (ABNORMAL) Comprehensive Metabolic Panel (05/09/2024 2:01 PM EST) Sodium 144 135 - 145 mmol/L [facility] Potassium 4.2 3.3 - 5.1 mmol/L [facility] Chloride 109(H) 96 - 108 mmol/L [facility] Carbon Dioxide 26 22 - 29 mmol/L [facility] Anion Gap 13 12 - 20 [facility] Urea Nitrogen (BUN) 26(H) 9 - 16 mg/dL [facility] Creatinine, Serum 3.36(H) 0.5 - 1.4 mg/dL [facility] Estimated Glomerular Filt Rate 14 [facility] Comment:Chronic Kidney Disea se: Estimated GFR < 60 mL/min/1.43i1Izstkh Kidney Disease: Estimated GFR < 15 mL/min/1.73m2 Glucose 148(H) 60 - 115 mg/dL [facility] Calcium 9.8 8.4 - 10.2 mg/dL [facility] Bilirubin, Total 0.4 0.0 - 1.0 mg/dL [facility] Aspartate Amino Transferase 24 5 - 31 U/L [facility] Alanine Aminotransferase 12 0 - 31 U/L [facility] Total Protein 8.0 6.5 - 8.0 g/dL [facility] Albumin Level 4.2 3.5 - 5.0 g/dL [facility] Alkaline Phosphatase 72 39 - 117 U/L [facility] Blood Venous blood specimen / Unknown 05/09/2024 2:01 PM EST 05/09/2024 3:54 PM EST us Kianna Nunez MD LAB BLOOD ORDERABLES Final Re sult [facility] [address] [place] [phone] * DIGITAL BILATERAL SCREEN 1 (01/10/2019 [...] DIGITAL BILATERAL SCREEN 1 us Jose Syed NAIL STICKER IMG BI PROCEDURES Final Result from Last 3 Months or Most Recently Relevant to Health Maintenance Insurance [address] [place] [id number] [facility] Care Teams Non Food Receiving Clerk Relationship Specialty Start Date End Date Kianna Nunez MD [address] [place] [address] PCP - General Family Medicine 02/02/20 Kleber Liu MD Technology Strategist 06/04/04 Anaya Parikh, RAMONA Optometry 04/09/24 Dorian Edouard Soap Press Feeder 06/04/04 [employer] Calender Wind Up Helper 04/09/24
--- OUTSIDE RECORDS SUMMARY | 2024-07-07 09:04 | XMS_ITS | Encounter Summary ---
Author Organization [employer] [facility] Address [address] [facility] [address] [place] [address] Care Team Providers Care Coffee Roaster Name Role Phone Kianna Nunez MD Primary Care Provider [phone] Encounter Details Date Type Department Care Team (Late st Contact Info) Description 08/31/2022 Orders Only [facility] [address] [place], [place] [phone] Timothy Ibrahim MD [address] [place] [address] Social History Tobacco Use Types Packs/Day Years [...] EDT 01/05/2023 2:58 PM EDT Comment:UACC Narrative [facility] - 01/07/2023 7:34 AM EDT Escherichia coli Quant > 100,000 cfu/mL Escherichia coli: Ampicillin >=32(R) Escherichia coli: Ceftriaxone <=0.25(S) Escherichia coli: Gentamicin <=1(S) Escherichia coli: Levofloxacin >=8(R) Escherichia coli: Nitrofurantoin <=16(S) Escherichia coli: Trimethoprim/Sulfamethoxazole <=20(S) Specimen Source: Urine clean catch us Kianna Nunez MD LAB MICROBIOLOGY - GENERAL OR DERABLES Final Result [facility] [address] [place] [phone] documented in this encounter Visit Diagnoses Not on filedocumented in this encounter Care Teams Coffee Roaster Relationship Specialty Start Date End Date Kianna Nunez MD [address] [place] [phone] PCP - General Family Medicine 02/02/20 Kleber Liu MD Advice Line Rn 06/04/04 Anaya Parikh OD Optometry 04/09/24 Dorian Edouard Corporate Quality Manager 06/04/04 [employer] Communication Clerk 04/09/24 documented as of this encounter
== END 2024-07-04 08:43 | disposition home or self-care (01) ==
LOC: HO.HOSX 08:42
PROVIDERS: Visit Provider Physician Assistant
DX: Z13.89 Encounter for screening for other disorder (principal)

== ENCOUNTER 2024-08-15 08:20 | Outpatient (REF) | payer OTHER, SELFPAY | END 2024-08-15 08:21 | disposition home or self-care (01) | LOC: HO.HOSX 08:20 | PROVIDERS: Visit Provider Physician Assistant | DX: Z13.89 Encounter for screening for other disorder (principal) ==

== ENCOUNTER 2024-09-11 14:12 | Outpatient (AMB) | payer OTHER, SELFPAY ==
--- NOTE | 2024-09-11 14:22 | MHC.OFFVIS ---
Vital Signs 09/11/24 14:26 Height 5 ft 4 in Weight 90 lb 6.232 oz BMI 15.5 BP 144/78 H Blood Pressure Location Lt brachial Position Sitting Pulse 62 Intake Visit Reasons: fu appt (rs) Intake Note: Follow-up with [facility] check c/o feeling ok some chest pain at times Lead Software Test Engineer Required: Yes Lead Software Test Engineer Name: len Fernandes Allergies Iodinated Contrast Media [CONTRAST,IV] Allergy (Severe, Verified 11/16/23 13:30) ANGIOEDEMA Medication List - Last Reconciled 09/11/24 by Kleber Liu MD albuterol sulfate 90 mcg/actuation (ProAir HFA) 2 puffs inhalation Q4-6H PRN ascorbic acid (vitamin C) 250 mg PO BID atorvastatin 40 mg PO BEDTIME calcium carbonate-vitamin D3 600 mg-5 mcg (200 unit) (Calcium 600 + D(3)) 1 tab PO BID carvedilol 37.5 mg (1.5 x 25 mg) PO BID 90 days cefuroxime axetil 500 mg PO DAILY 1 day docusate sodium 100 mg PO BID fluoxetine 20 mg PO DAILY 30 days fluticasone propion-salmeterol 250-50 mcg/dose (Advair Diskus) 1 puff inhalation BID hydralazine 10 mg PO TID isosorbide mononitrate ER 30 mg PO QAM pantoprazole 40 mg PO DAILY torsemide 40 mg PO QAM HPI Comments Details: Georgiana comes for follow-up. History was obtained with help of a certified sportspersons over the phone. Patient was no cardiac symptoms. She says she takes all her medications. Denies any shortness of breath, orthopnea, PND. No exertional chest pain. No prolonged palpitation, irregular heartbeat, lightheadedness, syncope, ICD discharge. She denies any drug abuse at this point. [facility] Medical History Cocaine use disorder Cocaine use disorder in remission MDD (major depressive disorder), recurrent severe, without psychosis Hx of sepsis History of asthma Hyperlipidemia HTN (hypertension) Cardiomyopathy ICD (implantable cardioverter-defibrillator) in place CAD (coronary artery disease) Chronic heart failure with reduced ejection fraction and diastolic dysfunction GERD (gastroesophageal reflux disease) Surgical History Hx of cystoscopy H/O hemorrhoidectomy Stented coronary artery Hx of colonoscopy Family History Father Diabetes HTN (hypertension) Mother Diabetes HTN (hypertension) Sister Throat cancer Social History Household Members: None Housing: Apartment Do you presently have visiting nurse or other home services: Yes (CHEST PAINTING AND SEALING SUPERVISOR 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) Unable to assess alcohol history related to: Unable to respond Alcohol intake: never Comment: sleeping Patient Tobacco Use Status: Current someday Tobacco user Tobacco use type: Cigarette Cigarettes Per Day: 1 Years Smoked: 38 e-Cigarette/Vaping Use: Never Used Second Hand Smoke Exposure: Yes Substance Use Type: Crack/Cocaine and Marijuana Advance Directives Date on File: 04/26/21 service: No Current occupational status: unemployed and disabled Sexual orientation: Straight/Heterosexual Review of Systems Const Denies chills, Denies fatigue, Denies fever(s), Denies frequent falls, Denies weakness, Denies weight gain and Denies weight loss ENT Denies dizziness Card Denies chest pain, Denies leg edema, Denies lightheadedness, Denies palpitations, Denies dyspnea, Denies dyspnea on exertion, Denies orthopnea and Denies other (loss of consciousness) Resp Denies cough, Denies dyspnea and Denies dyspnea on exertion GI Denies hematochezia and Denies change in stool character Musc Denies abnormal gait, Denies muscle weakness, Denies numbness, Denies radiating pain into limb and Denies tingling Neuro Denies abnormal gait, Denies dizziness, Denies frequent falls, Denies numbness, Denies tingling and Denies weakness Endo Denies fatigue and Denies palpitations Physical Exam Vital Signs: Last Vital Signs Pulse 62 09/11/24 14:26 BP 144/78 H 09/11/24 14:26 BMI result Body Mass Index 15.5 Const General: cooperative, comfortable, no acute distress, alert and awake Nutritional Appearance: thin Orientation/consciousness: patient oriented x3 Limitations: no limitations Neck Neck: Yes trachea midline, Yes supple and Yes no JVD Resp Effort & Inspection: normal respiratory effort Auscultation: clear to auscultation bilaterally Cardio Palpation: abnormal PMI displaced PMI Rate: regular rate Rhythm: regular rhythm Heart sounds: S1 normal heart sound present and S2 normal heart sound present GI Auscultation: normal bowel sounds Skin General skin exam: no rashes or lesions noted Neuro General: patient oriented x3 and no focal motor deficits Extrem General: Yes no clubbing, cyanosis or edema Office Procedures Cardiac Device Check Cardiac Device Check Details: Single-chamber [facility] ICD in place. Programmed in VVI at 40 beats per minute. No significant arrhythmias detected. Ventricular pacing thresholds excellent. Ventricular sensing is excellent. Pacing and shock lead impedance is stable. Battery life is at 5 and half months 32336-PG Cardiac Device Check, single lead implantable defibrillator Procedure code (CPT) selection complete Assessment & Plan Assessment & Plan (1) Heart failure with reduced ejection fraction: Code(s): I50.20 - Unspecified systolic (congestive) heart failure Category: Medical Plan: Heart failure with reduced ejection fraction with advanced kidney dysfunction. Currently on vasodilators therapy with hydralazine and nitrates. Blood pressure today was slightly elevated but usually is on the lower side. Have not readjusted her medications. Heart failure management was discussed. Continue current neurohormonal modulation with carvedilol. Continue current diuretic therapy. Daily weight monitoring avoidance salt loading was discussed. She understands and agrees. Encouraged to maintain activity level as tolerated. Advised to abstain from drugs. (2) CAD (coronary artery disease): Code(s): I25.10 - Atherosclerotic heart disease of nondalton coronary artery without angina pectoris Category: Medical Plan: CAD with prior LAD stenting. Continue aggressive medical therapy. Lifelong aspirin therapy is advised. Continue aggressive blood pressure control which is currently well optimized. Continue high-intensity statin therapy with target goal LDL less than 70 mg/dL. Avoidance of cocaine use and smoking was discussed. (3) ICD (implantable cardioverter-defibrillator) in place: Code(s): Z95.810 - Presence of automatic (implantable) cardiac defibrillator Category: Medical Plan: ICD in place, working well. Reprogrammed for adequate function. Will follow in 3 months for battery check. Follow up in the clinic in 6 months time with me thank you for allowing me to partake in her care Coding Level of Care Code Est Pt Level 4 (71828) Complex EM visit Add On G2211 Diagnoses Heart failure with reduced ejection fraction I50.20 CAD (coronary artery disease) I25.10 ICD (implantable cardioverter-defibrillator) in place Z95.810 CPT Codes Cardiac Device Check - Cardiac Device 4: [id number]-[id number] Cardiac Device Check, single lead implantable defibrillator ([id number])
[2024-09-11 14:26] VITALS: BP 144/78; PULSE 62; BMI 15.5
--- OUTSIDE RECORDS SUMMARY | 2024-09-11 16:57 | XMS_ITS | Encounter Summary ---
Author Organization [employer] Address [address] [place] [address] Care Team Providers Care Early Intervention Specialist Name Role Phone Kianna Nunez MD Primary Care Provider [phone] Reason for Visit * Reason Onset Date Comments Nurse Triage 01/08/2024 Encounter Details Date Type Department Care Team (Late st Contact Info) Description 01/08/2024 Telephone [facility] [address] [place] [address] Kianna Nunez MD [address] [place] [address] Nurse Triage Social History Tobacco Use Types [...] with others, in a hotel, in a longterm, living outside on the street, on a [...] to speak for Pt. Pt only speaks tajik. Pt has been having some rectal bleeding [...] 01/08/2024 2:20 PM EDT Triage call with [employer] Instructional Aide ID [id number]. Call to [phone] unable to get connection, callto [phone] unable to get connection. * Telephone Encounter - Ruba Hinson - 01/08/2024 2:09 PM EDT Symptoms: Body Aches, Urination Pain Outcome: Schedule an urgent appointment (within 1 hour) or talk to a nurse or provider soon Reason: Severe pain now The caller accepted this outcome Please contact at [phone] documented in this encounter Plan of Treatment Not on file documented as of this encounter Visit Diagnoses Not on filedocumented in this encounter Additional Health Concerns Assessment Noted Time PHQ-9 Depression Total Score: 0 05/01/20 23 2:20 PM EST documented as of this encounter Care Teams Early Intervention Specialist Relationship Specialty Start Date End Date Kianna Nunez MD [address] [place] [address] PCP - General Family Medicine 02/02/20 Kleber Liu MD Education Instructor 06/04/04 Anaya Parikh OD Optometry 04/09/24 Dorian Edouard Departmental Shipping Clerk 06/04/04 Samira Home Aligner 04/09/24 documented as of this encounter
--- OUTSIDE RECORDS SUMMARY | 2024-09-11 16:57 | XMS_ITS | Encounter Summary ---
Author Organization [employer] Address [address] 7[address] [place] [address] Care Team Providers Care Coconut Candy Maker Name Role Phone Kianna Nunez MD Primary Care Provider [phone] Reason for Visit * Reason Comments Med Refill Encounter Details Date Type Department Care Team ([facility] st Contact Info) Description 02/20/2023 Refill [facility] CH[facility] MED & PEDS [address] [place], [place] [phone] Kianna Nunez MD [address] [place], [place] [phone] Primary hypertension Social History Tobacco Use Types [...] hypertension documented in this encounter Care Teams Coconut Candy Maker Relationship Specialty Start Date End Date Kianna Nunez MD [address] [place], [place] [phone] PCP - General Family Medicine 02/02/20 Kleber Liu MD Industry Operations Investigator 06/04/04 Anaya Parikh OD Optometry 04/09/24 Dorian Edouard Cinder Pit Crane Operator 06/04/04 [facility] Pump Machine Operator 04/09/24 documented as of this encounter
--- OUTSIDE RECORDS SUMMARY | 2024-09-11 16:57 | XMS_ITS | Encounter Summary ---
Author Organization [facility] Address [address] 7[address] [place] [address] Care Team Providers Care Campground Caretaker Name Role Phone Kianna Nunez MD Primary Care Provider Reason for Visit * Reason Onset Date Comments insurance update 10/05/2022 Appointment 10/05/2022 Encounter Details Date Type Department Care Team (Late st Contact Info) Description 10/05/2022 Telephone [facility] ADULT DENTAL [address] [place] [address] Felisha Burkett DDS insurance update; Appointment Social [...] - 10/05/2022 10:06 AM EDT Bartolo from [facility] called in stating that patient had appt a couple of days ago but was unable to be seen due to apparently having no insurance coverage. She does have coverage through [facility] benefit providers. The id number for the dental portion would be [id number]. Please update insurance info and contact patient for rescheduling DR documented in this encounter Plan of Treatment Not on file documented as of this encounter Visit Diagnoses Not on filedocumented in this encounter Care Teams Campground Caretaker Relationship Specialty Start Date End Date Kianna Nunez MD [address] [place] [address] PCP - General Family Medicine 02/02/20 Kleber Liu MD Operating Room Specialist 06/04/04 Anaya Parikh OD Optometry 04/09/24 Dorian Edouard Catheterization Laboratory Technician 06/04/04 [facility] Wardrobe Consultant 04/09/24 documented as of this encounter
--- OUTSIDE RECORDS SUMMARY | 2024-09-11 16:57 | XMS_ITS | Encounter Summary ---
Author Organization [employer] Address [address] [place] [address] Care Team Providers Care Icing Mixer Name Role Phone Kianna Nunez MD Primary Care Provider [phone] Reason for Visit * Reason Onset Date Comments Pre-op Exam 11/15/2023 Encounter Details Date Type Department Care Team ([facility] st Contact Info) Description 11/15/2023 Telephone [facility] CHC MED & PEDS [address] [place] [address] Kianna Nunez MD [address] [place] [address] Pre-op Exam Social History Tobacco Use Types [...] no Surgeon's name: Dr. Agustin Facility name: [facility] Surgeon's office number: [phone] ext [phone] Surgeon's office fax number: [phone] Contact name (person you spoke with): Kelli Cruz office note from surgeon requested: Pre-Op notes documented in this encounter Plan of Treatment Not on file documented as of this encounter Visit Diagnoses Not on filedocumented in this encounter Additional Health Concerns Assessment Noted Time PHQ-9 Depression Total Score: 0 05/01/20 23 2:20 PM EST documented as of this encounter Care Teams Icing Mixer Relationship Specialty Start Date End Date Kianna Nunez MD [address] [place] [address] PCP - General Family Medicine 02/02/20 Kleber Liu MD Computer Game Programmer 06/04/04 Anaya Parikh OD Optometry 04/09/24 Dorian Edouard Information Systems Operator 06/04/04 [facility] Prosthetic Dentist 04/09/24 documented as of this encounter
--- OUTSIDE RECORDS SUMMARY | 2024-09-11 16:57 | XMS_ITS | Clinical Summary ---
Author Organization [employer] Address [address] 7[address] [place] [address] Care Team Providers Care Remote Sensing Specialist Name Role Phone Kianna Nunez MD Primary Care Provider Allergies Active Allergy Reactions Criticality Noted Date [...] MORNING AND IN THE EVENING 60 tablet 11 01/07/20 24 Active lidocaine (Xylocaine) 5 % ointmentIndicatio ns:Rectal tenesmus,Anal fissure Apply topically if needed for mild pain. 60 g 01/30/20 24 025 Active Acetaminophen Extra Strength 500 MG tabletIndications :Pain Take 1,000 mg by mouth every 8 (eight) hours if needed (pain). 180 tablet 1 02/22/20 24 Active imipramine (Tofranil) 50 MG tabletIndications :Painful spasm of anus TAKE 1 TABLET BY MOUTH AT BEDTIME 90 tablet 1 04/03/20 24 Active atorvastatin (Lipitor) 40 MG tabletIndications :Hyperlipidemia, unspecified hyperlipidemia type TAKE 1 TABLET BY MOUTH AT BEDTIME 90 tablet 1 07/15/19 25 Active isosorbide mononitrate ER (Imdur) 30 MG 24 hr tabletIndications :Chronic heart failure, unspecified heart failure type (CMS/HCC) TAKE 1 TABLET BY MOUTH EVERY MORNING 90 tablet 1 07/15/19 25 Active mirtazapine (Remeron) 30 MG tabletIndications :Failure to thrive in adult TAKE 1 TABLET BY MOUTH AT BEDTIME 90 tablet 1 07/15/19 25 Active pantoprazole (ProtoNix) 40 MG EC tabletIndications :Gastroesophageal reflux disease, unspecified whether esophagitis present TAKE 1 TABLET BY MOUTH EVERY MORNING 90 tablet 1 07/15/19 25 Active Fluticasone-Salme terol (Advair Diskus) 250-50 MCG/ACT aerosol powder INHALE 1 PUFF BY MOUTH TWICE DAILY RINSE MOUTH AFTER USING. 14 each 5 07/15/19 25 Active hydrALAZINE (Apresoline) 25 MG tablet TAKE 1 TABLET BY MOUTH THREE TIMES DAILY IN THE MORNING, EVENING, AND BEDTIME 90 tablet 2 08/12/19 25 Active docusate sodium (Colace) 100 MG capsule TAKE 1 CAPSULE BY MOUTH EVERY MORNING 90 capsule 1 08/15/19 25 Active hydrOXYzine pamoate (Vistaril) 25 MG capsule TAKE 1 CAPSULE BY MOUTH EVERY 8 HOURS NEEDED FOR ANXIETY 90 capsule 08/20/19 25 Active FLUoxetine (PROzac) 20 MG capsuleIndication s:Anxiety TAKE 1 CAPSULE BY MOUTH EVERY MORNING 90 capsule 1 09/10/19 25 Active torsemide (Demadex) 20 MG tabletIndications :Chronic heart failure, unspecified heart failure type (CMS/HCC) TAKE 1 TABLET BY MOUTH EVERY MORNING 90 tablet 1 09/10/19 25 Active docusate sodium (Colace) 100 MG capsule TAKE 1 CAPSULE BY MOUTH EVERY MORNING 90 capsule 1 01/24/20 24 025 Discontinued torsemide (Demadex) 20 MG tabletIndications :Chronic heart failure, unspecified heart failure type (CMS/HCC) TAKE 1 TABLET BY MOUTH EVERY MORNING 90 tablet 1 03/06/20 24 025 Discontinued FLUoxetine (PROzac) 20 MG capsuleIndication s:Anxiety TAKE 1 CAPSULE BY MOUTH EVERY MORNING 90 capsule 1 03/25/20 24 025 Discontinued hydrOXYzine pamoate (Vistaril) 25 MG capsule TAKE 1 CAPSULE BY MOUTH EVERY 8 HOURS NEEDED FOR ANXIETY 90 capsule 06/18/19 025 Discontinued Active Problems Problem Noted Date Diagnosed Date [...] referred for therapy and information given to granddaughter/LINING IRONER. Assessment & Plan (04/09/2024 11:16 AM EST): [...] and I will also send her to airfreight operations agent. Labs: CBC, Comprehensive Metabolic Panel, Lipid panel, [...] is to refer patientfor OP individual therapy. [facility] crisis line number provided. At this time Georgiana Earl meets criteria for Visit Diagnoses: Problem List Items Addressed This Visit Other Anxiety Housing problems Patient ready to address current needs Yes Strengths include readiness to take action and awareness of the problem PLAN: 1. Follow up with [facility]: Recommended for follow-up: as needed 2. Patient goal is to feel less anxious and be connected with services 3. Behavioral Recommendations a. Referral for OP individual therapy b. Utilize coping mechanisms that works for her to decrease symptoms c. Contact [facility] crisis line if needed (information and number provided) Acute kidney injury superimposed on CKD ([facility]/HCC ) 11/14/2022 Acute pyelonephritis 11/14/2022 Anemia 11/14/2022 [...] is to refer patientfor OP individual therapy. [facility] crisis line number provided. At this time Georgiana Earl meets criteria for Visit Diagnoses: Problem List Items Addressed This Visit Other Anxiety Housing problems Patient ready to address current needs Yes Strengths include readiness to take action and awareness of the problem PLAN: 1. Follow up with [facility]: Recommended for follow-up: as needed 2. Patient goal is to feel less anxious and be connected with services 3. Behavioral Recommendations a. Referral for OP individual therapy b. Utilize coping mechanisms that works for her to decrease symptoms c. Contact [facility] crisis line if needed (information and number [...] BP medication when she gets back to [place] today. -Seek medical attention if she has concerns. -Medication reconciliation with pharmacy was done today. Asthma 11/06/2011 Nephrolithiasis 11/06/2011 Tobacco user 09/13/2011 Resolved Problems Problem Noted Date Diagnosed Date Resolved Date Physical exam 08/22/2023 04/09/2024 Encounter for health-related screening 05/01/2023 04/09/2024 Assessment & Plan (05/01/2023 2:24 PM EST): -Labs: HIV-1/2, Hep. C-Ab. Encounters Date Type Department Care Team Description 09/09/2024 [facility] [address] [place] [address] Kianna Nunez MD Anxiety; Chronic heart failure, unspecified heart failure type (CMS/HCC) 08/19/2024 Refill [facility] MED [facility] PEDS [address] [place] [address] Kianna Nunez MD 08/13/2024 Refill [facility] CHC MED & PEDS [address] [place] [address] Kianna Nunez MD 08/10/2024 Refill [facility] CHC MED & PEDS [address] [place] [address] Kianna Nunez MD 07/11/2024 Refill [facility] CHC MED & PEDS [address] [place] [address] Kianna Nunez MD 07/10/2024 Refill [facility] CHC MED & PEDS [address] [place] [address] Kianna Nunez MD Hyperlipidemia, unspecified hyperlipidemia type; Chronic heart failure, unspecified heart failure type (CMS/HCC); Failure to thrive in adult; Gastroesophageal reflux disease, unspecified whether esophagitis present 06/18/2024 Refill [facility] CHC MED & PEDS [address] [place] [address] Kianna Nunez MD 06/17/2024 Telephone [facility] [address] [place] [address] [phone] Kianan Nunez MD from Last 3 Months Immunizations Name Administration [...] Dental X-Ray: Bitewings 01/24/2024 01/22/2023 Depression Monitoring 10/07/2024 04/09/2024, 024 SDOH Screening 02/14/2025 02/15/2024 Alcohol/Substance Use Screening [...] Procedure Name Priority Date/Time Associated Diagnosis Comments AMB REFERRAL TO NEUROLOGY Routine 07/03/2024 Memory deficit HEPATITIS C AB W/REFL TO HCV RNA, QN, PCR Routine 05/09/2024 2:01 PM EST Physical exam LIPID PANEL, STANDARD Routine 05/09/2024 2:01 PM EST Unintentional weight loss PROPHYLAXIS - ADULT Routine 01/22/2023 2 :00 PM EDT INTRAORAL - COMPLETE SERIES OF RADIOGRAPHIC IMAGES Routine 01/22/2023 2:00 PM EDT BI MAMMOGRAM SCREENING BILATERAL Routine 01/10/2019 1:40 PM EDT from Last 3 Months or Most Recently Relevant to Health Maintenance Results * Referral to Neurology (07/03/2024) Kianna Nunez MD OUTPATIENT REFERRAL ORDERABLE S Final Result * Hepatitis C Antibody with Reflex to HCV, RNA, Quantitative, Real-Time PCR (05/09/2024 2:01 PM EST) Hepatitis C Antibody Nonreactive Nonreactive [facility] Comment:Antibodies to HCV no t detected; does not exclude early acuteHCV infection. Blood Venous blood specimen / Unknown 05/09/2024 2:01 PM EST 05/09/2024 3:54 PM EST Kianna Nunez MD LAB BLOOD ORDERABLES Final Re sult [facility] [address] [place] [phone] * Lipid Panel, Standard (05/09/2024 2:01 PM EST) Triglycerides 82 <150 mg/dL [facility] Comment:Desirable Triglyceri de: less than 150 mg/dLBorderline High Triglyceride 150-199 mg/dLHigh Triglyceride: 200-499 mg/dLVery High Triglyceride: greater than or equal to 5OO mg/dL Cholesterol 161 <200 mg/dL [facility] Comment:Desirable Cholestero l: less than 200 mg/dLBorderline High Cholesterol: 200-239 mg/dLHigh Cholesterol: greater than 239 mg/dL LDL Cholesterol Calculated 87 <100 mg/dL [facility] Comment:Desirable LDL: less than 100 mg/dLNear Optimal/Above Optimal LDL: 110- 129 mg/dLBorderline High LDL: 130-159 mg/dLHigh LDL: 160-189 mg/dLVery High LDL: greater than or equal to 190 mg/dL HDL Cholesterol 58 >40 mg/dL [facility] Comment:Desirable HDL: great er than 40 mg/dL Note: This HDL assay may give artificially low results in patients with liver disease. Blood Venous blood specimen / Unknown 05/09/2024 2:01 PM EST 05/09/2024 3:54 PM EST us Kianna Nunez MD LAB BLOOD ORDERABLES Final Re sult [facility] [address] [place] [address] [phone] * DIGITAL BILATERAL SCREEN 1 (01/10/2019 [...] DIGITAL BILATERAL SCREEN 1 us Jose Syed MARKETING INFORMATION ANALYST IMG BI PROCEDURES Final Result from Last 3 Months or Most Recently Relevant to Health Maintenance Insurance [address] [place] [id number] [facility] Care Teams Remote Sensing Specialist Relationship Specialty Start Date End Date Kianna Nunez MD [address] [place] [address] PCP - General Family Medicine 02/02/20 Kleber Liu MD Cloth Spreader Screen Printing 06/04/04 Anaya Parikh OD Optometry 04/09/24 Dorian Edouard Managing Manager 06/04/04 [facility] Timber Robber 04/09/24
--- OUTSIDE RECORDS SUMMARY | 2024-09-11 16:58 | XMS_ITS | Encounter Summary ---
Author Organization [employer] [facility] Address [address] 7t [place] [address] Care Team Providers Care Staff Command And Control Officer Name Role Phone Kianna Nunez MD Primary Care Provider [phone] Encounter Details Date Type Department Care Team (Late st Contact Info) Description 08/31/2022 Orders Only [facility] CHC MED & PEDS [address] [place], [place] [phone] Timothy Ibrahim MD [address] [place] [address] Social History Tobacco Use Types Packs/Day Years [...] EDT 01/05/2023 2:58 PM EDT Comment:UACC Narrative [facility] - 01/07/2023 7:34 AM EDT Escherichia coli Quant > 100,000 cfu/mL Escherichia coli: Ampicillin >=32(R) Escherichia coli: Ceftriaxone <=0.25(S) Escherichia coli: Gentamicin <=1(S) Escherichia coli: Levofloxacin >=8(R) Escherichia coli: Nitrofurantoin <=16(S) Escherichia coli: Trimethoprim/Sulfamethoxazole <=20(S) Specimen Source: Urine clean catch us Kianna Nunez MD LAB MICROBIOLOGY - GENERAL OR DERABLES Final Result [facility] [address] [place] [address] [phone] documented in this encounter Visit Diagnoses Not on filedocumented in this encounter Care Teams Staff Command And Control Officer Relationship Specialty Start Date End Date Kianna Nunez MD [address] [place] [address] PCP - General Family Medicine 02/02/20 Kleber Liu MD Manufacturing Quality Engineer 06/04/04 Anaya Parikh OD Optometry 04/09/24 Dorian Edouard Supervisor Weaving 06/04/04 [facility] Pure Pak Machine Operator 04/09/24 documented as of this encounter
--- OUTSIDE RECORDS SUMMARY | 2024-09-11 16:58 | XMS_ITS | Encounter Summary ---
Author Organization [employer] Address [address] [place] [address] Care Team Providers Care Linen Controller Name Role Phone Kianna Nunez MD Primary Care Provider [phone] Reason for Visit * Reason Comments Med Refill Encounter Details Date Type Department Care Team ([facility] st Contact Info) Description 09/09/2024 Refill [facility] CHC MED & PEDS [address] [place], [place] [phone] Kianna Nunez MD [address] [place] [address] Anxiety; Chronic heart failure, unspecified heart failure type (CMS/HCC) Social History Tobacco Use Types Packs/Day Years [...] as of this encounter Visit Diagnoses Diagnosis Anxiety Anxiety state, unspecified Chronic heart failure, unspecified heart failure type (CMS/HCC) documented in this encounter Additional Health Concerns Assessment Noted Time PHQ-9 Depression Total Score: 18 024 10:34 AM EST documented as of this encounter Care Teams Linen Controller Relationship Specialty Start Date End Date Kianna Nunez MD [address] [place] [address] PCP - General Family Medicine 02/02/20 Kleber Lui MD Stiff Leg Derrick Operator 06/04/04 Anaya Parikh OD Optometry 04/09/24 Dorian Edouard Reimbursement Specialist 06/04/04 [facility] Roll Tender 04/09/24 documented as of this encounter
== END 2024-09-11 14:44 | disposition home or self-care (01) ==
PROVIDERS: PCP Family Medicine; Visit Provider Internal Medicine Cardiovascular Disease
DX: I50.20 Unspecified systolic (congestive) heart failure (principal); I25.10 Atherosclerotic heart disease of native coronary artery without angina pectoris; Z95.810 Presence of automatic (implantable) cardiac defibrillator
CPT/HCPCS: 93282; 99214; G2211

== ENCOUNTER → 2024-09-11 14:12 | Outpatient (BNVA) | payer OTHER, SELFPAY | PROVIDERS: PCP Family Medicine; Visit Provider Internal Medicine Cardiovascular Disease | DX: I50.20 Unspecified systolic (congestive) heart failure (principal); I25.10 Atherosclerotic heart disease of native coronary artery without angina pectoris; Z95.810 Presence of automatic (implantable) cardiac defibrillator | CPT/HCPCS: 99212 ==

== ENCOUNTER → 2024-09-23 23:59 | Outpatient (BNV) | payer OTHER, SELFPAY ==
--- NOTE | 2024-09-24 12:33 | MHC.OFFVIS ---
Intake Visit Reasons: Remote ICD check- [facility] Allergies Iodinated Contrast Media [CONTRAST,IV] Allergy (Severe, Verified 11/16/23 13:30) ANGIOEDEMA [facility] Medical History Cocaine use disorder Cocaine use disorder in remission MDD (major depressive disorder), recurrent severe, without psychosis Hx of sepsis History of asthma Hyperlipidemia HTN (hypertension) Cardiomyopathy ICD (implantable cardioverter-defibrillator) in place CAD (coronary artery disease) Chronic heart failure with reduced ejection fraction and diastolic dysfunction GERD (gastroesophageal reflux disease) Surgical History Hx of cystoscopy H/O hemorrhoidectomy Stented coronary artery Hx of colonoscopy Family History Father Diabetes HTN (hypertension) Mother Diabetes HTN (hypertension) Sister Throat cancer Social History Household Members: None Housing: Apartment Do you presently have visiting nurse or other home services: Yes ([employer] 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) Unable to assess alcohol history related to: Unable to respond Alcohol intake: never Comment: sleeping Patient Tobacco Use Status: Current someday Tobacco user Tobacco use type: Cigarette Cigarettes Per Day: 1 Years Smoked: 38 e-Cigarette/Vaping Use: Never Used Second Hand Smoke Exposure: Yes Substance Use Type: Crack/Cocaine and Marijuana Advance Directives Date on File: 04/26/21 service: No Current occupational status: unemployed and disabled Sexual orientation: Straight/Heterosexual Office Procedures Cardiac Device Check Cardiac Device Check Details: Remote ICD report generated 09/23/2024. ICD function is adequate. Battery life is low at 3.7 months. Will monitor remotely [id number] Cardiac Interrogation, implant defibrillator w/interim Procedure code (CPT) selection complete Assessment & Plan Assessment & Plan (1) ICD (implantable cardioverter-defibrillator) in place: Code(s): Z95.810 - Presence of automatic (implantable) cardiac defibrillator Category: Medical Plan: See above Coding Level of Care Code Procedure Only Diagnoses ICD (implantable cardioverter-defibrillator) in place Z95.810 CPT Codes Cardiac Device Check - Cardiac Device 13: [id number] Cardiac Interrogation, implant defibrillator w/interim ([id number])
== END ==
PROVIDERS: PCP Family Medicine; Visit Provider Internal Medicine Cardiovascular Disease
DX: Z45.010 Encounter for checking and testing of cardiac pacemaker pulse generator [battery] (principal)
CPT/HCPCS: 93295

== ENCOUNTER 2024-10-28 11:41 | Emergency (ER) | payer OTHER, SELFPAY ==
--- NOTE | 2024-10-28 | ECG_ITS ---
Test Reason : cp Blood Pressure : */* mmHG Vent. Rate : 77 BPM Atrial Rate : 77 BPM P-R Int : 148 ms QRS Dur : 94 ms QT Int : 482 ms P-R-T Axes : 70 73 71 degrees QTcB Int : 545 ms Normal sinus rhythm Minimal voltage criteria for LVH, may be normal variant ( Sokolow-Ramos ) Borderline ECG When compared with ECG of 19-Nov-2023 18:43, No significant change was found Referred By: Generic ED Physician Electronically Signed By: SANTI MADRID MD
--- NOTE | ~2024-10-28 | CT_ITS ---
EXAMINATION: CT ABDOMEN PELVIS WITHOUT IV CONTRAST HISTORY: abd pain COMPARISON: Comparison is made with the prior examination TECHNIQUE: CT scan of the abdomen and pelvis was performed without contrast using standard departmental protocol. Coronal and sagittal reformatted images were generated and reviewed. Oral contrast material was not administered at the request of the referring physician. This CT exam was performed with one or more of the following dose reduction techniques: automated exposure control, adjustment of the mA and/or kV according to patient size, use of iterative reconstruction technique. DLP: 221 mGy-cm FINDINGS: LOWER CHEST: There is scarring at the right lung base. There is a 2.0 cm masslike density at the medial aspect of the left lung base. There is no pleural effusion. CARDIOVASCULATURE: The heart is enlarged. Pacemaker wires are noted. There is no pericardial effusion. LIVER: The liver is normal in size and contour. There are cysts within the liver measuring up to 1.2 cm in size without change. GALLBLADDER / BILE DUCTS: The gallbladder is unremarkable. There is no intra or extrahepatic biliary ductal dilatation. SPLEEN: The spleen is normal in size and has an unremarkable unenhanced appearance. PANCREAS: The pancreas has an unremarkable unenhanced appearance. ADRENAL GLANDS: There has been further enlargement of a left adrenal mass which now measures 2.4 x 2.5 cm in size (previously 1.9 x 1.8 cm). This measures 15 HU in density and is indeterminate for adenoma. There is a 2nd adrenal mass on the left which is new measuring 2.0 x 1.3 cm. This measures 12 HU in density. KIDNEYS/RETROPERITONEUM: No renal calculi are identified. There is mild right hydroureteronephrosis to the bladder. No obstructing calculus is identified. The left kidney is atrophic. There is a 0.8 cm hyperdense lesion at the upper pole. There is no left hydronephrosis. LYMPH NODES: No retroperitoneal lymphadenopathy is identified in the abdomen or pelvis. VASCULATURE: There is aneurysmal dilatation of the suprarenal abdominal aorta measuring up to 3.4 cm in size. MESENTERY/PERITONEUM: No free fluid. No masses. There is no free intraperitoneal gas. STOMACH: The stomach is collapsed, limiting evaluation. SMALL BOWEL: The small bowel is normal in caliber. COLON: The colon is unremarkable. APPENDIX: The appendix is not seen, however no inflammatory changes are seen adjacent to the cecum. URINARY BLADDER/PELVIC ORGANS: The urinary bladder is collapsed, limiting evaluation. The patient is status post hysterectomy. BONES / SOFT TISSUES: There is degenerative disc disease of the spine. CT/CT abdomen pelvis wo IV con IMPRESSION: 1. 2.0 cm masslike density at the medial aspect of the left lung base. 2. Interval enlargement of the previously seen left adrenal mass. Interval development of a 2nd left adrenal mass. Metastatic disease is not excluded. 3. Mild right hydroureteronephrosis to the level of the bladder. No obstructing calculus is identified. 8 mm hyperdense lesion at the upper pole of the left kidney. Urology consult should be considered. Electronically signed by: Clayton Mcdonald MD 10/28/2024 01:48 PM EDT
[2024-10-28 11:56] VITALS: BP 185/107; BP 185/90; PULSE 75; PULSE 80; RESP 15; TEMP 36.4; O2SAT 100; O2SAT 97; BMI 17.3
--- OUTSIDE RECORDS SUMMARY | 2024-10-28 12:33 | XMS_ITS | Encounter Summary ---
Author Organization [employer] Address [address] [place] [address] Care Team Providers Care Room Service Food Server Name Role Phone Kianna Nunez MD Primary Care Provider [phone] Reason for Visit * Reason Comments Med Refill Encounter Details Date Type Department Care Team ([facility] st Contact Info) Description 09/24/2024 Refill [facility] CHC MED & PEDS [address] [place] [address] Kianna Nunez MD [address] [place] [address] Pain Social History Tobacco Use Types Packs/Day Years [...] as of this encounter Plan of Treatment Upcoming Encounters Date Type Department Care Team (Late st Contact Info) Description 11/13/2024 3:15 PM EDT Office Visit [facility] MED [facility] PEDS [address] [place] [address] Kianna Nunez MD [address] [place] [address] documented as of this encounter Visit Diagnoses Diagnosis Pain Generalized pain documented in this encounter Additional Health Concerns Assessment Noted Time PHQ-9 Depression Total Score: 18 024 10:34 AM EST documented as of this encounter Care Teams Room Service Food Server Relationship Specialty Start Date End Date Kianna Nunez MD [address] [place] [address] PCP - General Family Medicine 02/02/20 Kleber Liu MD Deli Department Manager 06/04/04 Anaya Parikh OD Optometry 04/09/24 Dorian Edouard Ship Rigger Apprentice 06/04/04 [facility] Beet Worker 04/09/24 documented as of this encounter
[2024-10-28] MEDS: Morphine Sulfate 4 MG/ML CARTRIDGE IVPUSH (12:49)
[2024-10-28] MEDS: ondansetron HCL 4 MG/2 ML VIAL IVPUSH (12:49)
[2024-10-28] MEDS: 0.9 % Sodium Chloride 1,000 ML 999 ML IV (12:49)
--- NOTE | 2024-10-28 13:02 | ED_ITS ---
HPI - Chest Pain General Chief Complaint: Chest Pain Stated Complaint: ABD PAIN,VOMITING,CP X2D PER EMS Time Seen by Provider: 10/28/24 12:16 History of Present Illness ED Provider: Miguel Mcclelland MD HPI narrative: Georgiana is a 69-year-old female with a history of AAA, cocaine use disorder, CAD, anemia, SVT, kidney stones, IBS who presents with acute on chronic diffuse abdominal pain and flank pain no abdominal injury denies blood in the stools she has had some mucousy stool. Denies fever or chills no chest pain difficulty breathing or anginal symptoms Related Data Home Medications ?Medication ?Instructions ?Recorded ?Confirmed albuterol sulfate 90 mcg/actuation 2 puff inhalation Q4-6H PRN 05/13/20 09/11/24 aerosol inhaler (ProAir HFA) Shortness Of Breath ascorbic acid (vitamin C) 250 mg 250 mg PO BID 05/13/20 09/11/24 tablet atorvastatin 40 mg tablet 40 mg PO BEDTIME 05/13/20 09/11/24 calcium 600 mg (as 1 tab PO BID 05/13/20 09/11/24 carbonate)-vitamin D3 5 mcg (200 unit) tablet (Calcium 600 + D(3)) fluticasone 250 mcg-salmeterol 50 1 puff inhalation BID 04/26/21 09/11/24 mcg/dose blistr powdr for inhalation (Advair Diskus) hydralazine 10 mg tablet 10 mg PO TID 10/12/22 09/11/24 isosorbide mononitrate 30 mg 30 mg PO QAM 10/12/22 09/11/24 tablet,extended release 24 hr pantoprazole 40 mg tablet,delayed 40 mg PO DAILY 10/12/22 09/11/24 release torsemide 20 mg tablet 40 mg PO QAM 10/12/22 09/11/24 Previous Rx's ?Medication ?Instructions ?Recorded docusate sodium 100 mg capsule 100 mg PO BID #60 caps 01/13/21 carvedilol 25 mg tablet 37.5 mg (1.5 x 25 mg) PO BID 90 10/17/22 days #270 tabs cefuroxime axetil 500 mg tablet 500 mg PO DAILY 1 day #1 tab 11/20/23 fluoxetine 20 mg capsule 20 mg PO DAILY 30 days #30 caps 11/20/23 cefpodoxime 200 mg tablet 200 mg PO BID 7 days #14 tabs 10/28/24 Allergies Allergy/AdvReac Type Severity Reaction Status Date / Time Iodinated Contrast Media Allergy Severe ANGIOEDEMA Verified 10/28/24 11:59 [CONTRAST,IV] [facility] Past Medical History Medical History Cocaine use disorder Cocaine use disorder in remission MDD (major depressive disorder), recurrent severe, without psychosis Hx of sepsis History of asthma Hyperlipidemia HTN (hypertension) Cardiomyopathy ICD (implantable cardioverter-defibrillator) in place CAD (coronary artery disease) Chronic heart failure with reduced ejection fraction and diastolic dysfunction GERD (gastroesophageal reflux disease) Surgical History Hx of cystoscopy H/O hemorrhoidectomy Stented coronary artery Hx of colonoscopy Family History Family History Father Diabetes HTN (hypertension) Mother Diabetes HTN (hypertension) Sister Throat cancer Social History Social History Household Members: None Housing: Apartment Do you presently have visiting nurse or other home services: Yes ([employer] 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) Unable to assess alcohol history related to: Unable to respond Alcohol intake: never Comment: sleeping Patient Tobacco Use Status: Current someday Tobacco user Tobacco use type: Cigarette Cigarettes Per Day: 1 Years Smoked: 38 e-Cigarette/Vaping Use: Never Used Second Hand Smoke Exposure: Yes Substance Use Type: Marijuana Advance Directives Date on File: 04/26/21 service: No Current occupational status: unemployed and disabled Sexual orientation: Straight/Heterosexual Physical Exam 2 Vital Signs: Vital Signs: Last Vital Signs Temp 97.9 F 10/28/24 16:24 Pulse 80 10/28/24 16:24 Resp 12 10/28/24 16:24 BP 169/98 H 10/28/24 16:24 Pulse Ox 100 10/28/24 16:24 O2 Del Method Room Air 10/28/24 16:24 BMI result Body Mass Index 17.3 Const: Other: EXAM: Gen: Alert, awake, well appearing, well hydrated. Head: Atraumatic Eyes: Anicteric, Normal conjunctiva. ENT: Moist mucosa, no pallor. ? Neck: Supple. Respiratory: Breathing comfortably, No distress.Clear to auscultation bilaterally, symmetric chest expansion, No wheeze, rales, ronchi. Cardiovascular: Regular rate and rhythm. No murmurs or rub. Well perfused periphery, warm extremities. No edema. ? Abdominal: Moderate diffuse tenderness no pulsatile mass. Soft, no objective distension. No palpable masses or obvious organomegaly. ?No guarding, no rebound tenderness or other peritoneal findings. : No flank tenderness. Neuro: Alert. Gross movement of all extremities intact. ? Vital signs: See flowsheet Medications Administered Discontinued Medications Generic Name Dose Route Start Last Admin Trade Name Freq PRN Reason Stop Dose Admin Ceftriaxone Sodium 1 gm 10/28/24 13:49 10/28/24 14:31 Ceftriaxone Sodium 1 Gm Vial IVPUSH 10/28/24 13:50 1 gm ONCE ONE Administration Sodium Chloride 1,000 mls @ 999 mls/hr 10/28/24 12:45 10/28/24 14:06 Ns IV 10/28/24 13:45 Infused .Q1H1M LIZBETH Infusion Morphine Sulfate 4 mg 10/28/24 12:31 10/28/24 12:49 Morphine Sulfate 4 Mg/Ml Cartridge IVPUSH 10/28/24 12:32 4 mg ONCE ONE Administration Protocol Ondansetron HCl 4 mg 10/28/24 12:31 10/28/24 12:49 Ondansetron Hcl 4 Mg/2 Ml Vial IVPUSH 10/28/24 12:32 4 mg ONCE ONE Administration Medical Decision Making Medical Decision Making MDM Narrative: 69-year-old female with diffuse abdominal pain and bilateral flank pain. Patient with a known AAA, kidney stone last identified on [facility] imaging 2020 diffuse abdominal pain mucousy stool. No GI bleeding. Denies vomiting she also has pain in the right flank greater than left flank no trauma. She is not vomiting in the ED but appeared uncomfortable on arrival. My ultrasound on arrival did not show significant hydronephrosis but CT is read as hydroureter. There was no stone or obvious mechanical obstruction, I did run the case by our urologist given there is no stone or other physical obstruction despite signs of UTI there is no SIRS or sepsis the patient can be discharged he will follow up the patient as an outpatient urine culture is sent This note was sent to patient's [facility] providers regarding lung nodule/mass that needs to be followed and growing adrenal mass that needs to be followed CT: IMPRESSION: 1. 2.0 cm masslike density at the medial aspect of the left lung base. 2. Interval enlargement of the previously seen left adrenal mass. Interval development of a 2nd left adrenal mass. Metastatic disease is not excluded. 3. Mild right hydroureteronephrosis to the level of the bladder. No obstructing calculus is identified. 8 mm hyperdense lesion at the upper pole of the left kidney. Urology consult should be considered. Differential Diagnosis Differential Diagnoses: The differential diagnosis associated with the presentation includes AAA with possible complication, ureteral stone, pyelonephritis, gastroenteritis, colitis comment diverticulitis, UTI Consult Healthcare Provider Management of the patient was discussed with: Category Planner (Urology Dr. Best) Lab Data MDM Lab Attestation statement: I reviewed the patient's lab results. 10/28/24 15:18 10/28/24 15:18 Labs: Lab Results 10/28/24 10/28/24 Range/Units 13:33 15:18 WBC 10.2 (4.8-10.8) X10*3/uL RBC 3.72 L (4.20-5.50) X10*6/uL Hgb 11.6 L (12.0-16.0) g/dl Hct 34.1 L (37.0-47.0) % MCV 91.7 (80.0-98.0) fL MCH 31.2 (27.0-33.0) pg MCHC 34.0 (31.0-35.0) g/dl RDW 15.4 (11.0-16.0) % Plt Count 193 D (160-400) X10*3/uL MPV 9.0 L (9.4-12.3) fL Immature Gran % (Auto) 0.2 (0.0-0.4) % Neut % (Auto) 77.2 H (45-73) % Lymph % (Auto) 15.0 L (20-40) % [place] % (Auto) 5.7 (2-11) % Eos % (Auto) 1.1 (0-4) % Baso % (Auto) 0.8 (0-2) % Lymph # (Auto) 1.5 (1.2-4.9) X10*3/uL [place] # (Auto) 0.6 (0.1-1.2) X10*3/uL Eos # (Auto) 0.1 (0.0-0.4) X10*3/uL Baso # (Auto) 0.1 (0.0-0.2) X10*3/uL Abs Immat Gran (auto) 0.02 (0.00-0.03) X10*3/uL Absolute Neuts (auto) 7.9 (2.0-8.3) x10*3/uL Absolute Nucleated RBC 0.000 (0.0-0.012) X10*3/uL Nucleated RBC % (auto) 0.0 (0.0-0.2) /100WBC Sodium 146 H (135-145) mmol/L Potassium 3.4 (3.3-5.1) mmol/L Chloride 112 H (96-108) mmol/L Carbon Dioxide 22 (22-29) mmol/L Anion Gap 15 (12-20) BUN 39 H (9-16) mg/dL Creatinine 2.48 H (0.5-1.4) mg/dL Estim Creat Clear Calc 15.1 Estimated GFR 19 Random Glucose 95 (60-115) mg/dL Calcium 9.0 D (8.4-10.2) mg/dL Total Bilirubin 0.4 (0.0-1.0) mg/dL AST 31 (5-31) U/L ALT 18 (0-31) U/L Alkaline Phosphatase 67 (39-117) U/L Total Protein 7.5 (6.5-8.0) g/dL Albumin 4.3 (3.5-5.0) g/dL Urine Color Yellow Urine Appearance Clear Urine pH 6.0 (5.0-9.0) Ur Specific [place] 1.010 (1.005-1.025) Urine Protein 30 (1+) H (Neg-Trace) mg/dL Urine Glucose (UA) Negative (Negative) mg/dL Urine Ketones Negative (Negative) mg/dL Urine Blood Negative (Negative) Urine Nitrite Negative (Negative) Ur Leukocyte Esterase Moderate (2+) H (Negative) Urine RBC 0-2 (0-2) /HPF Urine WBC >50 H (0-5) /HPF Ur Squamous Epith Cells 0-2 (0-2) /HPF Urine Bacteria 4+ (None Seen) Hyaline Casts 0-2 (0-2) /LPF Independent Interpretation I performed an independent interpretation of an: EKG (Sinus rhythm rate 77 QTC 545. MN 148. No acute ischemic changes ) Radiology Impression Discussion of test interpretation with radiology: I have reviewed the radiologist's reading. Prescription Management I considered prescription management with: Antibiotic Social Determinants Patient?s care significantly limited by Social Determinants of Health including: Alcoholism and drug addiction in family Discharge Plan Discharge Clinical Impression: Hydroureter on right, Acute UTI Patient Disposition: Home, Self-Care Instructions: Urinary Tract Infection in Older Adults (ED) Additional Instructions: _ DISCHARGE DIAGNOSES: Dilation/obstruction of the right ureter tube from the kidney to the bladder. Urinary tract infection treatment has been initiated Stable aortic aneurysm HISTORY OF PRESENTATION: Abdominal pain and loose stool several days EMERGENCY DEPARTMENT COURSE,TESTS, TREATMENTS: While in the ED today you had a CT scan which showed the findings above. You had urinary analysis with signs of infection DISCHARGE MEDICATIONS: ?[We have made no changes to your regular medication regimen however we have added antibiotics to the regimen FOLLOW-UP: ?Call your primary or general physician soon as possible to discuss your symptoms, your ED visit and to discuss follow up plans It is important that you follow up with Urology and vascular surgery Call urology office to follow up regarding dilated ureter and ?hydro nephrosis ?of unclear cause and urinary tract infection. Call vascular surgery office regarding your abdominal aortic aneurysm that has been stable since 2019 INSTRUCTIONS ?& RETURN PRECAUTIONS: If any symptoms change first call your primary physician, if it is after-hours your primary doctors office should have a provider combination machine tender you can speak with. If the symptoms are severe or very concerning to you then call 911 or return to the ED. [07] Miguel Mcclelland MD Emergency Physician [facility] Prescriptions: New cefpodoxime 200 mg tablet 200 mg PO BID 7 Days Qty: 14 0RF Rx Instructions: must administer with a meal/food No Action docusate sodium 100 mg capsule 100 mg PO BID Qty: 60 1RF carvedilol 25 mg tablet 37.5 mg PO BID 90 Days Qty: 270 3RF Rx Instructions: must administer with a meal/food atorvastatin 40 mg Tablet 40 mg PO BEDTIME calcium carbonate-vitamin D3 [Calcium 600 + D(3)] 600 mg(1,500mg) -200 unit Tablet 1 tab PO BID ascorbic acid (vitamin C) 250 mg Tablet 250 mg PO BID albuterol sulfate [ProAir HFA] 90 mcg/actuation Hfa Aerosol Inhaler 2 puff INHALATION Q4-6H PRN (Reason: Shortness Of Breath) fluticasone propion-salmeterol [Advair Diskus] 250-50 mcg/dose blister with device 1 puff inhalation BID cefuroxime axetil 500 mg Tablet 500 mg PO DAILY 1 Days Qty: 1 0RF fluoxetine 20 mg Capsule 20 mg PO DAILY 30 Days Qty: 30 1RF hydralazine 10 mg tablet 10 mg PO TID isosorbide mononitrate 30 mg tablet extended release 24 hr 30 mg PO QAM torsemide 20 mg tablet 40 mg PO QAM pantoprazole 40 mg tablet,delayed release (DR/EC) 40 mg PO DAILY Referrals: [facility] – [place] Urology Services [Provider Group] - 5 days [facility] [place] Vascular Services [Provider Group] - 5 days Interventions: ED Discharge Assessment Last Done: 10/28/24 16:24 Discharge Date/Time: 10/28/24 16:50 Print Language: Macedonian
[2024-10-28 13:21] VITALS: BP 172/98; PULSE 80; RESP 12; TEMP 36.6; O2SAT 100
--- NOTE | 2024-10-28 13:22 | MHC.EDTECH ---
pt ambulated to and from bathroom with a steady gait and no assistance needed. UA collected and sent to lab. call john within reach
[2024-10-28 13:41] LABS: Appearance Urine Clear; Color Urine Yellow; Glucose Urine UA Negative (Negative); Leukocyte Esterase Urine Moderate (2+) (Negative); Nitrite Urine Negative (Negative); UMIC TRIGGER UACC YES; Urine Blood Negative (Negative); Urine Ketones Negative (Negative); Urine Protein 30 (1+) mg/dL (Neg-Trace)
[2024-10-28 13:44] LABS: Bacteria Urine 4+ (None Seen); Hyaline Casts Urine 0-2 /LPF (0-2); RBC Urine 0-2 /HPF (0-2); Squamous Epithelial Cell Urine 0-2 /HPF (0-2); UACC Culture Trigger YES; WBC Urine >50 /HPF (0-5)
[2024-10-28] MEDS: cefTRIAXone sodium 1 GM VIAL IVPUSH (14:31)
[2024-10-28 15:23] LABS: MANUAL DIFF FLAG NO
[2024-10-28 15:24] LABS: Basophils Absolute Auto 0.1 X10*3/uL (0.0-0.2); Basophils Percent Auto 0.8 % (0-2); Eosinophils Absolute Auto 0.1 X10*3/uL (0.0-0.4); Eosinophils Percent Auto 1.1 % (0-4); Hematocrit 34.1 % (37.0-47.0); Hemoglobin 11.6 g/dl (12.0-16.0); Imm Gran Abs Auto 0.02 X10*3/uL (0.00-0.03); Imm Gran Pct Auto 0.2 % (0.0-0.4); Lymphocytes Absolute Auto 1.5 X10*3/uL (1.2-4.9); Mean Corpuscular Hemoglobin 31.2 pg (27.0-33.0); Mean Corpuscular Volume 91.7 fL (80.0-98.0); Monocytes Absolute Auto 0.6 X10*3/uL (0.1-1.2); Monocytes Percent Auto 5.7 % (2-11); Neutrophils Absolute Auto 7.9 x10*3/uL (2.0-8.3); Neutrophils Percent Auto 77.2 % (45-73); Platelet Count 193 X10*3/uL (160-400); Red Blood Count 3.72 X10*6/uL (4.20-5.50); Red Cell Distribution Width 15.4 % (11.0-16.0); White Blood Count 10.2 X10*3/uL (4.8-10.8)
[2024-10-28 15:47] LABS: Alanine Aminotransferase 18 U/L (0-31); Albumin Level 4.3 g/dL (3.5-5.0); Anion Gap 15 (12-20); Aspartate Amino Transferase 31 U/L (5-31); Bilirubin Total 0.4 mg/dL (0.0-1.0); Blood Urea Nitrogen 39 mg/dL (9-16); Carbon Dioxide 22 mmol/L (22-29); Chloride 112 mmol/L (96-108); Creatinine Clr Calc Pharmacy 15.1; Estimated Glomerular Filt Rate 19; Glucose Random 95 mg/dL (60-115); Potassium 3.4 mmol/L (3.3-5.1); Sodium 146 mmol/L (135-145); Total Protein 7.5 g/dL (6.5-8.0)
[2024-10-28 15:54] LABS: Alkaline Phosphatase 67 U/L (39-117)
[2024-10-28 15:55] VITALS: BP 169/98; PULSE 80; RESP 12; TEMP 36.6; O2SAT 100
[2024-10-28 16:24] VITALS: BP 169/98; PULSE 80; RESP 12; TEMP 36.6; O2SAT 100
== END 2024-10-28 16:50 | disposition home or self-care (01) ==
PROVIDERS: Emergency Provider Emergency Medicine; PCP Family Medicine
DX: N13.4 Hydroureter (principal); N39.0 Urinary tract infection, site not specified; R07.89 Other chest pain; R11.2 Nausea with vomiting, unspecified; I25.10 Atherosclerotic heart disease of native coronary artery without angina pectoris; R10.2 Pelvic and perineal pain; Z79.899 Other long term (current) drug therapy
CPT/HCPCS: 36415; 74176; 80053; 81001; 85025; 87086; 87088; 87186; 93005; 96361; 96374; 96375; 99284; 99285; J0696; J2270; J2405

== ENCOUNTER → 2024-10-28 11:59 | Outpatient (BNV) | payer OTHER, SELFPAY | PROVIDERS: Emergency Provider Emergency Medicine; PCP Family Medicine; Visit Provider Internal Medicine Cardiovascular Disease | DX: R07.9 Chest pain, unspecified (principal) | CPT/HCPCS: 93010 ==

== ENCOUNTER → 2024-10-28 12:32 | Outpatient (BNV) | payer OTHER, SELFPAY | PROVIDERS: Emergency Provider Emergency Medicine; PCP Family Medicine; Visit Provider Radiology Diagnostic Radiology | DX: D35.02 Benign neoplasm of left adrenal gland (principal) | CPT/HCPCS: 74176 ==

== ENCOUNTER 2024-12-02 15:32 | Outpatient (AMB) | payer OTHER, SELFPAY ==
--- NOTE | 2024-12-02 15:36 | A.OFFVIS_ITS ---
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 She was originally seen in the ER on 10/28/2024 and at that time was noted to have abdominal pain. She subsequently underwent CAT scan was noted to have a 3.4 cm aortic aneurysm. Of note she has a history of this AAA along with cocaine use disorder coronary artery disease anemia SVT kidney stones and irritable bowel. She now presents for vascular evaluation. [facility] Medical History Cocaine use disorder Cocaine use disorder in remission MDD (major depressive disorder), recurrent severe, without psychosis Hx of sepsis History of asthma Hyperlipidemia HTN (hypertension) Cardiomyopathy ICD (implantable cardioverter-defibrillator) in place CAD (coronary artery disease) Chronic heart failure with reduced ejection fraction and diastolic dysfunction GERD (gastroesophageal reflux disease) Surgical History Hx of cystoscopy H/O hemorrhoidectomy Stented coronary artery Hx of colonoscopy Family History Father Diabetes HTN (hypertension) Mother Diabetes HTN (hypertension) Sister Throat cancer Social History Household Members: None Housing: Apartment Do you presently have visiting nurse or other home services: 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) Unable to assess alcohol history related to: Unable to respond Alcohol intake: never Comment: sleeping Patient Tobacco Use Status: Current someday Tobacco user Tobacco use type: Cigarette Cigarettes Per Day: 1 Years Smoked: 38 e-Cigarette/Vaping Use: Never Used Second Hand Smoke Exposure: Yes Substance Use Type: Marijuana Advance Directives Date on File: 04/26/21 service: No Current occupational status: unemployed and disabled Sexual orientation: Straight/Heterosexual Review of Systems Const All systems reviewed & are unremarkable except as noted in HPI and below Reports no additional complaints ENT Reports Normal hearing present Card Denies chest pain, Denies chest pain at rest, Denies chest pain with activity and Denies pedal edema Resp Denies cough GI Denies abdominal pain Musc Denies abnormal gait, Denies muscle cramps and Denies radiating pain into limb Skin/Breast Denies skin ulcer and Denies wounds Neuro Reports Normal hearing present and Denies abnormal gait Psych Reports no additional complaints Physical Exam Const General: cooperative, healthy appearing and comfortable Orientation/consciousness: oriented to person, oriented to place and oriented to time HEENT Head: Yes normal to inspection Neck Neck: Yes normal visual inspection Carotids: no bruits Chest Chest palpation & inspection: normal inspection of the chest Resp Effort & Inspection: normal respiratory effort and able to speak in complete sentences Auscultation: clear to auscultation bilaterally, no crackles, no rales, no rhonchi and no wheezes Cardio Rate: regular rate Rhythm: regular rhythm Heart sounds: S1 normal heart sound present and S2 normal heart sound present Bruits: no carotid bruits Peripheral pulses: Peripheral pulses 2+ throughout GI Inspection: Yes normal to inspection Skin Wounds: no wounds Hair: normal Neuro General: oriented to person, oriented to place and oriented to time Cranial nerves: Yes CN's II-XII intact bilaterally and Yes Normal hearing present Cognition (Neuro): normal cognition Motor exam (neuro): 5/5 motor strength present throughout Extrem Other: venous exam: No significant superficial varicosities or spider telangiectasias, minimal edema General: No clubbing, No cyanosis and No edema Psych Appearance: grossly normal Mental Status: mental status grossly normal Speech and movement: Normal speech and movement present Results Reviewed Results Reviewed: CT scan dated 10/28/2024 demonstrates 3.4 cm abdominal aortic aneurysm Assessment & Plan Assessment & Plan (1) AAA (abdominal aortic aneurysm) without rupture: Code(s): I71.40 - Abdominal aortic aneurysm, without rupture, unspecified Category: Medical Qualifiers: Abdominal aorta location: infrarenal aorta Qualified Code(s): I71.43 - Infrarenal abdominal aortic aneurysm, without rupture Plan: In short patient has radiologic evidence of a AAA on 3.4 cm on CAT scan. We have discussed the pathophysiology of aortic aneurysms and the risk of ruptures. We have discussed rupture risk based on size. In addition we have discussed conservative measures and risk factor modification for prevention of increase in size of the aneurysm. the patient is scheduled for surveillance follow-up in approximately 1 year with ultrasound. Thank you for allowing us to participate in the care of this patient Orders: Orders US abdominal aortic aneurysm 1 Year I71.43 - Infrarenal abdominal aortic aneurysm, without rupture Coding Level of Care Code New Pt Level 4 (60072) Complex EM visit Add On G2211 Diagnoses Infrarenal abdominal aortic aneurysm (AAA) without rupture I71.43 Abdominal aorta location: infrarenal aorta
== END 2024-12-02 15:55 | disposition home or self-care (01) ==
LOC: HO.HVS 15:33
PROVIDERS: PCP Family Medicine; Visit Provider Surgery Vascular Surgery
DX: I71.43 Infrarenal abdominal aortic aneurysm, without rupture (principal)
CPT/HCPCS: 99204; G2211

== ENCOUNTER → 2024-12-02 15:32 | Outpatient (BNVA) | payer OTHER, SELFPAY | PROVIDERS: PCP Family Medicine; Visit Provider Surgery Vascular Surgery | DX: I71.43 Infrarenal abdominal aortic aneurysm, without rupture (principal); F14.10 Cocaine abuse, uncomplicated; D64.9 Anemia, unspecified; K58.9 Irritable bowel syndrome, unspecified | CPT/HCPCS: 99202 ==

== ENCOUNTER → 2024-12-23 23:59 | Outpatient (BNV) | payer OTHER, SELFPAY ==
--- NOTE | 2024-12-25 09:25 | MHC.OFFVIS ---
Intake Visit Reasons: remote ICD check- [facility] Allergies Iodinated Contrast Media (CONTRAST,IV) Allergy (Severe, Verified 12/02/24 15:37) ANGIOEDEMA PFSH Medical History Cocaine use disorder Cocaine use disorder in remission MDD (major depressive disorder), recurrent severe, without psychosis Hx of sepsis History of asthma Hyperlipidemia HTN (hypertension) Cardiomyopathy ICD (implantable cardioverter-defibrillator) in place CAD (coronary artery disease) Chronic heart failure with reduced ejection fraction and diastolic dysfunction GERD (gastroesophageal reflux disease) Surgical History Hx of cystoscopy H/O hemorrhoidectomy Stented coronary artery Hx of colonoscopy Family History Father Diabetes HTN (hypertension) Mother Diabetes HTN (hypertension) Sister Throat cancer Social History Household Members: None Housing: Apartment Do you presently have visiting nurse or other home services: 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) Unable to assess alcohol history related to: Unable to respond Alcohol intake: never Comment: sleeping Patient Tobacco Use Status: Current someday Tobacco user Tobacco use type: Cigarette Cigarettes Per Day: 1 Years Smoked: 38 e-Cigarette/Vaping Use: Never Used Second Hand Smoke Exposure: Yes Substance Use Type: Marijuana Advance Directives Date on File: 04/26/21 service: No Current occupational status: unemployed and disabled Sexual orientation: Straight/Heterosexual Office Procedures Cardiac Device Check Cardiac Device Check Details: Remote implantable loop recorder report generated 12/25/2024. ICD function is adequate but battery life has reached [place]. Will scheduled for generator change [id number] Cardiac Interrogation, implant defibrillator w/interim Procedure code (CPT) selection complete Assessment & Plan Assessment & Plan (1) ICD (implantable cardioverter-defibrillator) in place: Code(s): Z95.810 - Presence of automatic (implantable) cardiac defibrillator Category: Medical Plan: See above Coding Level of Care Code Procedure Only Diagnoses ICD (implantable cardioverter-defibrillator) in place Z95.810 CPT Codes Cardiac Device Check - Cardiac Device 13: [id number] Cardiac Interrogation, implant defibrillator w/interim ([id number])
== END ==
PROVIDERS: PCP Family Medicine; Visit Provider Internal Medicine Cardiovascular Disease
DX: Z45.02 Encounter for adjustment and management of automatic implantable cardiac defibrillator (principal)
CPT/HCPCS: 93295

== ENCOUNTER 2024-12-26 14:07 | Outpatient (AMB) | payer OTHER, SELFPAY ==
[2024-12-26 14:09] VITALS: BP 114/60; PULSE 97; O2SAT 97; BMI 15.3
--- NOTE | 2024-12-26 14:09 | MHC.OFFVIS ---
Vital Signs 12/26/24 14:09 Height 5 ft 4 in Weight 89 lb BMI 15.3 BP 114/60 Blood Pressure Location Rt brachial Position Sitting Pulse 97 Pulse Source Pulse Oximeter Pulse Oximetry (%) 97 Oxygen Delivery Method Room Air Intake Visit Reasons: Abnormal CT scan Cable Installation Manager Required: Yes Cable Installation Manager Name: Adriana Up C.L.M Allergies Iodinated Contrast Media (CONTRAST,IV) Allergy (Severe, Verified 12/26/24 14:13) ANGIOEDEMA HPI HPI Abnormal CT scan: Details: 69-year-old lady, active 15 pack-year smoker, referred for evaluation abnormal chest imaging that included lower lobe nodule versus mass noted on CT of abdomen that also demonstrated bilateral adrenal masses. Patient complains of unintended weight loss. She denies personal or family history of lung disease or cancer. She is currently using Advair and albuterol MDI with suboptimal control of her dyspnea on exertion. [facility] Medical History Cocaine use disorder Cocaine use disorder in remission MDD (major depressive disorder), recurrent severe, without psychosis Hx of sepsis History of asthma Hyperlipidemia HTN (hypertension) Cardiomyopathy ICD (implantable cardioverter-defibrillator) in place CAD (coronary artery disease) Chronic heart failure with reduced ejection fraction and diastolic dysfunction GERD (gastroesophageal reflux disease) Surgical History Hx of cystoscopy H/O hemorrhoidectomy Stented coronary artery Hx of colonoscopy Family History Father Diabetes HTN (hypertension) Mother Diabetes HTN (hypertension) Sister Throat cancer Social History Household Members: None Housing: Apartment Do you presently have visiting nurse or other home services: Yes (FIRE PREVENTION FORESTER 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) Unable to assess alcohol history related to: Unable to respond Alcohol intake: never Comment: sleeping Patient Tobacco Use Status: Current someday Tobacco user Tobacco use type: Cigarette Cigarettes Per Day: 1 Years Smoked: 38 e-Cigarette/Vaping Use: Never Used Second Hand Smoke Exposure: Yes Substance Use Type: Marijuana Advance Directives Date on File: 04/26/21 service: No Current occupational status: unemployed and disabled Sexual orientation: Straight/Heterosexual Review of Systems Const Denies daytime sleepiness, Denies excessive sweating, Denies fatigue, Denies fever(s), Denies lethargy, Denies malaise, Denies night sweats, Denies snoring and Reports weight loss Eyes Denies blurry vision and Denies itchy eyes ENT Denies nasal congestion, Denies post nasal drip, Denies sinus pain, Denies sinus pressure and Denies other ( Thrush) Card Denies chest pain, Denies pedal edema, Denies dyspnea, Reports dyspnea on exertion, Denies orthopnea and Denies paroxysmal nocturnal dyspnea Resp Denies cough, Denies hemoptysis, Denies excessive phlegm production, Denies dyspnea, Reports dyspnea on exertion, Denies snoring and Denies wheezing GI Denies abdominal pain and Denies heartburn Musc Denies myalgias, Denies arthralgias and Denies joint swelling Skin/Breast Denies rash Neuro Denies memory loss and Denies seizure-like activity Psych Denies abnormal sleep pattern, Denies anxiety and Denies memory loss Endo Denies excessive sweating, Denies fatigue and Denies heat intolerance Mt/Lymph Denies easy bruising Aller/Immun Denies itchy eyes, Denies seasonal rhinorrhea and Denies wheezing Physical Exam Vital Signs: Last Vital Signs Pulse 97 12/26/24 14:09 BP 114/60 12/26/24 14:09 Pulse Ox 97 12/26/24 14:09 Oxygen Delivery Method Room Air 12/26/24 14:09 BMI result Body Mass Index 15.3 Const General: no acute distress and alert Nutritional Appearance: cachectic Orientation/consciousness: Other orientation findings ( oriented) HEENT Head: Yes atraumatic Eyes General: appearance normal, both eyes and all related structures Sclerae: sclerae normal EOM: EOMs intact bilaterally Neck Neck: Yes supple Lymphatic: no lymphadenopathy noted Resp Effort & Inspection: normal respiratory effort and no use of accessory muscles Auscultation: clear to auscultation bilaterally Cardio Rate: regular rate Rhythm: regular rhythm Heart sounds: no gallops, no murmurs and no rubs Skin General skin exam: other ( warm) Extrem General: No clubbing, No cyanosis and No edema Assessment & Plan Assessment & Plan (1) Pulmonary mass: Code(s): R91.8 - Other nonspecific abnormal finding of lung field Category: Medical Plan: Incomplete chest imaging with suspected pulmonary mass and underlying adrenal masses. Will obtain PET-CT. (2) Emphysema lung: Code(s): J43.9 - Emphysema, unspecified Category: Medical Plan: Will obtain full PFT. Will switch Advair to Anoro. Continue albuterol MDI. Orders: Orders PFT pulmonary function test Today J43.9 - Emphysema, unspecified PET CT fusion skull to thigh Today R91.8 - Other nonspecific abnormal finding of lung field Medications: New umeclidinium-vilanterol 62.5-25 mcg/actuation (Anoro Ellipta) 1 inh inhalation DAILY 1 ea 6RF Coding Level of Care Code New Pt Level 4 (71805) Diagnoses Pulmonary mass R91.8 Emphysema lung J43.9
== END 2024-12-26 14:27 | disposition home or self-care (01) ==
LOC: HO.HPS 14:07
PROVIDERS: PCP Family Medicine; Referring Provider Family Medicine; Visit Provider Internal Medicine Pulmonary Disease
DX: R91.8 Other nonspecific abnormal finding of lung field (principal); J43.9 Emphysema, unspecified
CPT/HCPCS: 99204

== ENCOUNTER → 2024-12-26 14:07 | Outpatient (BNVA) | payer OTHER, SELFPAY | PROVIDERS: PCP Family Medicine; Referring Provider Family Medicine; Visit Provider Internal Medicine Pulmonary Disease | DX: R91.8 Other nonspecific abnormal finding of lung field (principal); J43.9 Emphysema, unspecified | CPT/HCPCS: 99202 ==

== ENCOUNTER 2024-12-31 10:34 | Outpatient (REF) | payer OTHER, SELFPAY ==
--- OUTSIDE RECORDS SUMMARY | 2024-12-31 11:35 | XMS_ITS | Encounter Summary ---
Author Organization [employer] Address [address] [place] [address] Care Team Providers Care Knot Saw Operator Name Role Phone Kianna Nunez MD Primary Care Provider [phone] Reason for Visit * Reason Comments Med Refill Encounter Details Date Type Department Care Team ([facility] st Contact Info) Description 09/24/2024 Refill [facility] CHC MED & PEDS [address] [place] [address] Kianna Nunez MD [address] [place] [address] Pain Social History Tobacco Use Types Packs/Day [...] Description 01/05/2025 1:15 PM EDT Office Visit [facility] MED & PEDS [address] [place] [address] Kianna Nunez MD [address] [place] [address] documented as of this encounter Visit Diagnoses Diagnosis Pain Generalized pain documented in this encounter Additional Health Concerns Assessment Noted Time PHQ-9 Depression Total Score: 18 024 10:34 AM EST documented as of this encounter Care Teams Knot Saw Operator Relationship Specialty Start Date End Date Kianna Nunez MD [address] [place] [address] PCP - General Family Medicine 02/02/20 Kleber Liu MD Still Operator Whiskey 06/04/04 Anaya Parikh OD Optometry 04/09/24 Dorian Edouard Chili Maker 06/04/04 [employer] Brokerage Coordinator 04/09/24 documented as of this encounter
[2024-12-31 13:24] LABS: MANUAL DIFF FLAG NO
[2024-12-31 13:34] LABS: Hematocrit 34.1 % (37.0-47.0); Hemoglobin 11.1 g/dl (12.0-16.0); Imm Gran Abs Auto 0.01 X10*3/uL (0.00-0.03); Imm Gran Pct Auto 0.2 % (0.0-0.4); Lymphocytes Absolute Auto 1.6 X10*3/uL (1.2-4.9); Mean Corpuscular HGB Conc 32.6 g/dl (31.0-35.0); Mean Corpuscular Hemoglobin 30.1 pg (27.0-33.0); Mean Corpuscular Volume 92.4 fL (80.0-98.0); NRBC Abs Auto 0.000 X10*3/uL (0.0-0.012); NRBC Pct Auto 0.0 /100WBC (0.0-0.2); Platelet Count 252 X10*3/uL (160-400); Red Blood Count 3.69 X10*6/uL (4.20-5.50); White Blood Count 5.5 X10*3/uL (4.8-10.8)
[2024-12-31 14:10] LABS: Alanine Aminotransferase 14 U/L (0-31); Albumin Level 4.4 g/dL (3.5-5.0); Alkaline Phosphatase 70 U/L (39-117); Anion Gap 13 (12-20); Aspartate Amino Transferase 23 U/L (5-31); Blood Urea Nitrogen 38 mg/dL (9-16); Calcium 9.2 mg/dL (8.4-10.2); Carbon Dioxide 24 mmol/L (22-29); Chloride 112 mmol/L (96-108); Cholesterol 147 mg/dL (<200); Estimated Glomerular Filt Rate 16; HDL Cholesterol 69 mg/dL (>40); Iron 86 mcg/dL (30-160); Percent Iron Saturation 31 % (15-50); Potassium 3.9 mmol/L (3.3-5.1); Sodium 145 mmol/L (135-145); Total Iron Binding Capacity 274 mcg/dL (228-428); Total Protein 7.6 g/dL (6.5-8.0); Triglycerides 71 mg/dL (<150); Unsaturated Iron Binding 188 ug/dL
[2024-12-31 14:35] LABS: Ferritin 48 ng/mL (10-250)
[2024-12-31 14:51] LABS: Folate 13.7 ng/mL (> or = 4.0); Vitamin B12 388 pg/mL (200-900)
[2025-01-01 08:08] LABS: HIV Num 1 0.99 S/CO (0.00-0.99)
[2025-01-01 08:09] LABS: Syphilis Screen Nonreactive (Nonreactive)
[2025-01-01 11:43] LABS: Lyme Abs Screen <0.90 index
--- NOTE | 2025-01-07 10:23 | PC.NURSE ---
This RN attempted to contact patient. Cell and home numbers not accepting incoming calls attempted call to contact number for Daughter Carlos and no answer. Spoke to Triny at Dr Streeter office, she reports valid numbers but that pt was given instructions by their officee.
== END 2024-12-31 10:35 | disposition home or self-care (01) ==
LOC: HO.HHCL 10:34
PROVIDERS: PCP Family Medicine; Visit Provider Family Medicine
DX: Z01.84 Encounter for antibody response examination (principal); R62.7 Adult failure to thrive; R41.3 Other amnesia; Z11.3 Encounter for screening for infections with a predominantly sexual mode of transmission; Z11.4 Encounter for screening for human immunodeficiency virus [HIV]
CPT/HCPCS: 36415; 80053; 80061; 82607; 82728; 82746; 83540; 83615; 84443; 85025; 85652; 86140; 86592; 86617; 86618; 86780; 87389

== ENCOUNTER 2025-01-06 14:57 | Outpatient (AMB) | payer OTHER, SELFPAY ==
--- NOTE | 2025-01-06 15:00 | MHC.OFFVIS ---
Intake Visit Reasons: hydronephrosis Intake Note: New Patient is present for hydronephrosis Urology Rx:VIT-C Blood Thinners:none Imaging completed: 10/28/2024 Track Inspecting Supervisor Required: No Accompanied by: Self / Same As Patient Allergies Iodinated Contrast Media (CONTRAST,IV) Allergy (Severe, Verified 01/06/25 15:03) ANGIOEDEMA HPI Comments Details: Georgiana is a pleasant female. She is a patient of Dr. Nunez. She is seen for the following urologic conditions - hydronephrosis Accompanied by family members who are helping translate Patient previously evaluated in 2019 Recommend Lasix renogram. Baseline creatinine 2.8. Hydronephrosis Detected on imaging Renal ultrasound - No renal calculi are identified. There is mild right hydroureteronephrosis to the bladder. No obstructing calculus is identified. The left kidney is atrophic. There is a 0.8 cm hyperdense lesion at the upper pole. There is no left hydronephrosis PFSH Medical History Cocaine use disorder Cocaine use disorder in remission MDD (major depressive disorder), recurrent severe, without psychosis Hx of sepsis History of asthma Hyperlipidemia HTN (hypertension) Cardiomyopathy ICD (implantable cardioverter-defibrillator) in place CAD (coronary artery disease) Chronic heart failure with reduced ejection fraction and diastolic dysfunction GERD (gastroesophageal reflux disease) Surgical History Hx of cystoscopy H/O hemorrhoidectomy Stented coronary artery Hx of colonoscopy Family History Father Diabetes HTN (hypertension) Mother Diabetes HTN (hypertension) Sister Throat cancer Social History Household Members: None Housing: Apartment Do you presently have visiting nurse or other home services: Yes (COLLISION REPAIR TECHNICIAN 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) Unable to assess alcohol history related to: Unable to respond Alcohol intake: never Comment: sleeping Patient Tobacco Use Status: Current someday Tobacco user Tobacco use type: Cigarette Cigarettes Per Day: 1 Years Smoked: 38 e-Cigarette/Vaping Use: Never Used Second Hand Smoke Exposure: Yes Substance Use Type: Marijuana Advance Directives Date on File: 04/26/21 service: No Current occupational status: unemployed and disabled Sexual orientation: Straight/Heterosexual Review of Systems Const Denies chills and Denies fever(s) Card Reports no additional complaints and Denies syncope Resp Denies cough GI Denies abdominal pain and Denies heartburn Reports as per HPI and Denies change in libido Neuro Denies syncope Psych Denies change in libido Endo Denies change in libido Physical Exam Const General: cooperative, healthy appearing, comfortable and no acute distress Orientation/consciousness: patient oriented x3 HEENT Face and sinus: Yes normal facial exam Mouth: moist mucous membranes Neck Neck: Yes normal visual inspection, Yes full ROM and Yes trachea midline Chest Chest palpation & inspection: normal inspection of the chest Resp Effort & Inspection: normal respiratory effort, able to speak in complete sentences and no respiratory distress GI Inspection: Yes normal to inspection Back/Spine/Pelvis Cervical Spine: normal cervical lordosis Thoracic/Lumbar Spine: thoracic and lumbar spine normal to inspection Skin General skin exam: no rashes or lesions noted Neuro General: patient oriented x3, gait normal, tone normal and moves all extremities Extrem General: Yes normal to inspection and Yes capillary refill normal Results AMB Urinalysis, Automated UA Leukoctes 15 Alondra/uL Last Edit by Rose Mary Up MA on 01/06/25 17:06 UA Nitrite Negative Last Edit by Rose Mary Up MA on 01/06/25 17:06 UA Urobilinogen 0.2 mg/dL Last Edit by Rose Mary Up MA on 01/06/25 17:06 UA Protein 15 mg/dL Last Edit by Rose Mary Up MA on 01/06/25 17:06 UA pH 6.0 Last Edit by Rose Mary Up MA on 01/06/25 17:06 UA Blood 0 Alex/uL Last Edit by Rose Mary Up MA on 01/06/25 17:06 UA Specific [place] 1.015 Last Edit by Rose Mary Up MA on 01/06/25 17:06 UA Ketone Negative Last Edit by Rose Mary Up MA on 01/06/25 17:06 UA Bilirubin 0 mg/dL Last Edit by Rose Mary Up MA on 01/06/25 17:06 UA Glucose 0 mg/dL Last Edit by Rose Mary Up MA on 01/06/25 17:06 Results Reviewed Results Reviewed: Laboratory Last Values Urine pH (Auto) 6.0 01/06/25 16:50 Specific [place] (Auto) 1.015 01/06/25 16:50 Urine Protein (Auto) 15 mg/dL 01/06/25 16:50 Glucose (UA)(Auto) 0 mg/dL 01/06/25 16:50 Urine Ketones (Auto) Negative 01/06/25 16:50 Urine Blood (Auto) 0 Alex/uL 01/06/25 16:50 Urine Nitrite (Auto) Negative 01/06/25 16:50 Urine Bilirubin (Auto) 0 mg/dL 01/06/25 16:50 Urine Urobilinogen (Auto) 0.2 mg/dL 01/06/25 16:50 Leukocyte Esterase (Auto) 15 Alondra/uL 01/06/25 16:50 Assessment & Plan Assessment & Plan (1) Hydronephrosis: Code(s): N13.30 - Unspecified hydronephrosis Category: Medical Plan Lasix renogram Orders: Orders NM renal flow w pharm int 01/06/25 N13.30 - Unspecified hydronephrosis AMB Urinalysis Automated 01/06/25 N13.30 - Unspecified hydronephrosis, N39.0 - Urinary tract infection, site not specified Patient Instructions: This note is constructed using voice recognition software. While every effort has been made to ensure accuracy funeral home makeup artist errors may have been included. Imaging studies, laboratory and physical exam results were discussed and reviewed in detail. No major barriers to patient understanding were identified. An opportunity to ask questions regarding the treatment plan was provided. All questions were answered. The patient expressed understanding and agreement with the above treatment plan. The patient is aware they should contact our office by phone for worsening of their current condition or the appearance of new urologic symptoms. Compliance is encouraged with any medications and followup testing that is ordered. It is a privilege to participate in the urologic care of your patient. If you have any questions or concerns regarding treatment for the above conditions, or other urologic issues, please do not hesitate to contact me. The office telephone contact is [phone]. Sincerely, Dr Paul Rose MD, [facility] - Urology Compassionate Specialist Care for the Genitourinary System Coding Level of Care Code New Pt Level 4 (39126) Diagnoses Hydronephrosis N13.30
--- OUTSIDE RECORDS SUMMARY | 2025-01-06 15:28 | XMS_ITS | Encounter Summary ---
Author Organization [employer] Address [address] [place] [address] Care Team Providers Care Garnett Fixer Name Role Phone Kianna Nunez MD Primary Care Provider [phone] Reason for Visit * Reason Comments Med Refill Encounter Details Date Type Department Care Team ([facility] st Contact Info) Description 09/24/2024 Refill [facility] CHC MED & PEDS [address] [place] [address] Kianna Nunez MD [address] [place] [address] Pain Social History Tobacco Use Types Packs/Day [...] Care Team (Late st Contact Info) Description 01/22/2025 2:30 PM EDT Office Visit [facility] MED & PEDS [address] [place] [address] Kianna Nunez MD [address] [place] [address] documented as of this encounter Visit Diagnoses Diagnosis Pain Generalized pain documented in this encounter Additional Health Concerns Assessment Noted Time PHQ-9 Depression Total Score: 18 024 10:34 AM EST documented as of this encounter Care Teams Garnett Fixer Relationship Specialty Start Date End Date Kianna Nunez MD [address] [place] [address] PCP - General Family Medicine 02/02/20 Kleber Liu MD Manager Production 06/04/04 Anaya Parikh OD Optometry 04/09/24 Dorian Edouard Suspect Artist 06/04/04 [employer] Java Application Developer 04/09/24 documented as of this encounter
== END 2025-01-06 15:49 | disposition home or self-care (01) ==
LOC: HO.HUSH 14:58
PROVIDERS: PCP Family Medicine; Visit Provider Urology
DX: N13.30 Unspecified hydronephrosis (principal)
CPT/HCPCS: 99204

== ENCOUNTER → 2025-01-06 14:57 | Outpatient (BNVA) | payer OTHER, SELFPAY | PROVIDERS: PCP Family Medicine; Visit Provider Urology | DX: N13.30 Unspecified hydronephrosis (principal); N39.0 Urinary tract infection, site not specified | CPT/HCPCS: 81003; 99202 ==

== ENCOUNTER → 2025-01-08 13:00 | Day surgery (SDC) | payer OTHER, SELFPAY ==
--- OUTSIDE RECORDS SUMMARY | 2024-12-26 11:42 | XMS_ITS | Encounter Summary ---
Author Organization [employer] Address [address] [place] [address] Care Team Providers Care Side Stitching Machine Operator Name Role Phone Kianna Nunez MD Primary Care Provider [phone] Reason for Visit * Reason Comments Med Refill Encounter Details Date Type Department Care Team ([facility] st Contact Info) Description 09/24/2024 Refill [facility] CHC MED & PEDS [address] [place] [address] Kianna Nunez MD [address] [place] [address] Pain Social History Tobacco Use Types Packs/Day [...] is your housing situation today? I have torjulito kraus 02/15/[address] you [...] Care Team (Late st Contact Info) Description 01/05/2025 1:15 PM EDT Office Visit [facility] MED & PEDS [address] [place] [address] Kianna Nunez MD [address] [place] [address] documented as of this encounter Visit Diagnoses Diagnosis Pain Generalized pain documented in this encounter Additional Health Concerns Assessment Noted Time PHQ-9 Depression Total Score: 18 024 10:34 AM EST documented as of this encounter Care Teams Side Stitching Machine Operator Relationship Specialty Start Date End Date Kianna Nunez MD [address] [place] [address] PCP - General Family Medicine 02/02/20 Kleber Liu MD Truck Chauffeur 06/04/04 Anaya Parikh OD Optometry 04/09/24 Dorian Edouard Creative Services Producer 06/04/04 [employer] Mainframe Programmer 04/09/24 documented as of this encounter
[2025-01-08] VITALS (18 sets, daily range): BP systolic 159–193; BP diastolic 87–105; PULSE 80–103; RESP 10–21; TEMP 36.6; O2SAT 93–100; BMI 17.1
--- NOTE | 2025-01-08 15:17 | PC.NURSE ---
please see IR VS for further VS
--- NOTE | 2025-01-08 16:08 | W.PM.OPN ---
Operative Note Operative Note Date of Service: 01/08/25 Narrative: Indication: Single chamber ICD generator HARRISON Summary: 1. Generator replacement of Amaral single chamber ICD (CPT 46209) 2. Moderate sedation provided by ma for 38 minutes (CPT 43989, +[id number] x2) Narrative: Patient presented to the EP lab in a fasting, nonsedated state after written informed consent was verified. The procedure was performed under moderate sedation provided by ma. 1g IV Ancef was administered prior to skin incision. The patient was prepped and draped in the usual sterile manner. A 1-inch incision was made over the existing ICD generator. The ICD pocket was exposed using a combination of electrocautery and blunt dissection. The existing generator was removed from the pocket. The new ICD generator was brought to the field. The lead was detached from the existing ICD generator and inserted into the new generator. The lead was secured into the header using the provided torque wrench. The pocket was flushed with an antibiotic irrigant. Any bleeders within the pocket were controlled with electrocautery. The lead was wrapped underneath the new generator and the ICD was placed back within the existing pocket. A TYRX envelope was placed within the pocket. ICD testing showed lead parameters to be within the desirable range. The pocket was closed in two layers using 2-0 followed by 4-0 V-Loc. Dermabond was applied over the incision site. Gauze and tegaderm dressing were then placed over the incision site followed by a pressure dressing. Patient was then transported back to recovery in a stable condition. Recommendations: 1. Keep chest incision site dry for 7 days. 2. Remove the gauze and Tegaderm dressing after 3 days. 3. Follow up in clinic in 1-2 weeks for incision site check. 4. Discharge home after 90 mins if patient remains stable.
== END | disposition home or self-care (01) ==
PROVIDERS: PCP Family Medicine; Visit Provider Student in an Organized Health Care Education/Training Program
DX: Z45.02 Encounter for adjustment and management of automatic implantable cardiac defibrillator (principal)
CPT/HCPCS: 33262; 33263; 99152; 99153; C1722; C1889; J0690; J2003; J2250; J3010; J3374

== ENCOUNTER 2025-01-19 11:14 | Outpatient (REF) | payer OTHER, SELFPAY ==
--- OUTSIDE RECORDS SUMMARY | 2025-01-19 12:32 | XMS_ITS | Encounter Summary ---
Author Organization [employer] Address [address] [place] [address] Care Team Providers Care Financial Analysis Advisor Name Role Phone Kianna Nunez MD Primary Care Provider [phone] Reason for Visit * Reason Comments Med Refill Encounter Details Date Type Department Care Team ([facility] st Contact Info) Description 09/24/2024 Refill [facility] CHC MED & PEDS [address] [place] [address] Kianna Nunez MD [address] [place] [address] Pain Social History Tobacco Use Types Packs/Day [...] Description 01/22/2025 2:30 PM EDT Office Visit [facility] MED & PEDS [address] [place] [address] Kianna Nunez MD [address] [place] [address] documented as of this encounter Visit Diagnoses Diagnosis Pain Generalized pain documented in this encounter Additional Health Concerns Assessment Noted Time PHQ-9 Depression Total Score: 18 024 10:34 AM EST documented as of this encounter Care Teams Financial Analysis Advisor Relationship Specialty Start Date End Date Kianna Nunez MD [address] [place] [address] PCP - General Family Medicine 02/02/20 Kleber Liu MD Instrument Adjuster 06/04/04 Anaya Parikh OD Optometry 04/09/24 Dorian Edouard Relay Assembler 06/04/04 [employer] Web Page Developer 04/09/24 documented as of this encounter
== END 2025-01-19 11:15 | disposition home or self-care (01) ==
LOC: HO.MAMMO 11:14
PROVIDERS: PCP Family Medicine; Visit Provider Family Medicine
DX: Z13.89 Encounter for screening for other disorder (principal)

== ENCOUNTER 2025-01-22 15:01 | Outpatient (REF) | payer OTHER, SELFPAY ==
--- OUTSIDE RECORDS SUMMARY | 2025-01-22 15:04 | XMS_ITS | Encounter Summary ---
Author Organization [employer] Address [address] [place] [address] Care Team Providers Care Systems Admin Name Role Phone Kianna Nunez MD Primary Care Provider [phone] Reason for Visit * Reason Comments Med Refill Encounter Details Date Type Department Care Team ([facility] st Contact Info) Description 09/24/2024 Refill [facility] CHC MED & PEDS [address] [place] [address] Kianna Nunez MD [address] [place] [address] Pain Social History Tobacco Use Types Packs/Day [...] documented as of this encounter Care Teams Systems Admin Relationship Specialty Start Date End Date Kianna Nunez MD [address] [place] [address] PCP - General Family Medicine 02/02/20 Kleber Liu MD Insurance Billing Specialist 06/04/04 Anaya Parikh OD Optometry 04/09/24 Dorian Edouard Technology Auditor 06/04/04 [employer] Central Sterilization Technician 04/09/24 documented as of this encounter
== END 2025-01-22 15:02 | disposition home or self-care (01) ==
LOC: HO.CHCLNP 15:01
PROVIDERS: Visit Provider Family Medicine
DX: R30.0 Dysuria (principal)
CPT/HCPCS: 87086; 87088; 87186

== ENCOUNTER 2025-01-29 09:35 | Outpatient (AMB) | payer OTHER, SELFPAY ==
--- OUTSIDE RECORDS SUMMARY | 2025-01-27 10:45 | XMS_ITS | Encounter Summary ---
Author Organization [facility] Address [address] [place] [address] Care Team Providers Care Cogeneration Operator Name Role Phone Kianna Nunez MD Primary Care Provider [phone] Reason for Referral * Imaging (Routine) - Pending Review Specialty Diagnoses / Procedures Referred By Bryan anderson Referred To Contact Radiology Diagnoses Other nonspecific abnormal finding of lung field Procedures PET CT Skull to Mid Thigh Initial Paul Andre MD [address] [place] [address] Phone: tel: fax: [facility] Referral ID Status Reason Start Date Expiration Date V isits Requested Visits Authorized [id number] Pending Review 01/14/2025 01/14/2026 1 1 Reason for Visit * Imaging (Routine) - Pending Review Specialty Diagnoses / Procedures Referred By Bryan anderson Referred To Contact Radiology Diagnoses Other nonspecific abnormal finding of lung field Procedures PET CT Skull to Mid Thigh Initial Paul Andre MD [address] [place] [address] Phone: tel: fax: [facility] Referral ID Status Reason Start Date Expiration Date V isits Requested Visits Authorized [id number] Pending Review 01/14/2025 01/14/2026 1 1 Encounter Details Date Type Department Care Team (Latest Contact Info) Description 01/27/2025 10:45 AM EDT Hospital Encounter [facility] PET Scan [address] [place] [address] Other nonspecific abnormal finding of lung field Social History Tobacco Use Types Packs/Day Years Used Date Smoking Tobacco: Every Day Alcohol Use Standard Drinks/Week Comments Not Asked 0 (1 standard drink = 0.6 oz pur e alcohol) Comments Unknown Sex and Gender Information Value Date Recorded Sex Assigned at Not on file Legal Sex Female 3:58 AM EST Gender Identity Not on file Sexual Orientation Not on file documented as of this encounter Plan of Treatment Not on file documented as of this encounter Procedures Procedure Name Priority Date/Time Associated Diagnosis Comments PET CT SKULL TO MID THIGH INITIAL Routine 01/27/2025 1:15 PM EDT Other nonspecific abnormal finding of lung field documented in this encounter Results * PET CT Skull to Mid Thigh Initial (01/27/2025 1:15 PM EDT) Anatomical Region Laterality Modality Body Radiographic Natacha ging 01/28/2025 12:2 3 PM EDT Impressions 01/28/2025 12:32 PM EDT Impression: No hypermetabolic abnormality. -------- FINAL REPORT -------- Dictated By: Faith Schulz Dictated Date: 01/28/2025 12:23 ET Assigned Physician: Faith Schulz Reviewed and Electronically Signed By: Faith Schulz Signed Date: 01/28/2025 12:32 ET Workstation ID: [id number] Transcribed By: Self Edit Transcribed Date: 01/28/2025 12:23 ET Narrative 01/28/2025 12:[address] Scan CLINICAL HISTORY: MASS LIKE DENSITY . Technique: The patient received an intravenous injection of fluorine 18 fluorodeoxyglucose. After a short delay a whole body PET scan was obtained from the skull base through midthighs. Additionally a low dose, unenhanced CT scan was acquired for attenuation correction and anatomic localization. The CT portion of the examination was done strictly for attenuation correction and is not a true diagnostic CT examination. Total DLP: 198 mGy/cm Blood glucose level in mg/dl: 114 FDG dose in mCi: 13.5 Comparison: Findings: Head and Neck: No hypermetabolic abnormality. Chest: No hypermetabolic abnormality. Stable left medial basilar opacity measuring 1.5 cm. Left chest wall pacer. No breast mass or axillary adenopathy. Abdomen and Pelvis: No hypermetabolic abnormality. 2 left adrenal nodules measuring 2.7 and 2.1 cm. Atrophic left kidney. Splenectomy. Left renal cysts. There is prominent diffuse bowel uptake particularly in the pelvis presumably physiologic. Musculoskeletal: No hypermetabolic abnormality. Multilevel degenerative changes. Procedure Note Faith Schulz MD - 01/28/[address] Scan CLINICAL HISTORY: MASS LIKE DENSITY . Technique: The patient received an intravenous injection of fluorine 18fluorodeoxyglucose. After a short delay a whole body PET scan wasobtained from the skull base through midthighs. Additionally a low dose,unenhanced CT scan was acquired for attenuation correction and anatomiclocalization. The CT portion of the examination was done strictly forattenuation correction and is not a true diagnostic CT examination. TotalDLP: 198 mGy/cm Blood glucose level in mg/dl: 114 FDG dose in mCi: 13.5 Comparison: Findings: Head and Neck: No hypermetabolic abnormality. Chest: No hypermetabolic abnormality. Stable left medial basilar opacitymeasuring 1.5 cm. Left chest wall pacer. No breast mass or axillaryadenopathy. Abdomen and Pelvis: No hypermetabolic abnormality. 2 left adrenal nodulesmeasuring 2.7 and 2.1 cm. Atrophic left kidney. Splenectomy. Left renalcysts. There is prominent diffuse bowel uptake particularly in the pelvispresumably physiologic. Musculoskeletal: No hypermetabolic abnormality. Multilevel degenerativechanges. IMPRESSION: Impression: No hypermetabolic abnormality. -------- FINAL REPORT -------- Dictated By: Faith Schulz Dictated Date: 01/28/2025 12:23 ET Assigned Physician: Faith Schulz Reviewed and Electronically Signed By: Faith Schulz Signed Date: 01/28/2025 12:32 ET Workstation ID: [id number] Transcribed By: Self Edit Transcribed Date: 01/28/2025 12:23 ET Paul Adnre MD [facility] PROCEDURES Final Result documented in this encounter Visit Diagnoses Diagnosis Other nonspecific abnormal finding of lung field documented in this encounter Administered Medications Inactive Administered Medications - up to 3 most recent administrations Medication Order MAR Action Action Date Dose Rate Site F-18 FDG pet diag radio-isotope injection 13.5 millicurie 13.5 millicurie, intravenous, Once in imaging, Starting on Sun01/27/25 at 1130, For 1 dose Given 01/27/2025 11:28 AM EDT 13.5 millicuries Left Antecubital documented in this encounter Orders Medications Ordered That Chris ht Not Have Been Administered Count Last Ordered Date First Ordered Date F-18 FDG pet diag radio-isot ope injection 13.5 millicurie 1 01/27/2025 documented in this encounter Care Teams Cogeneration Operator Relationship Specialty Start Date End Date Kianna Nunez MD [address] [place] [address] PCP - General 08/27/23 documented as of this encounter
--- NOTE | 2025-01-29 09:45 | MHC.OFFVIS ---
Vital Signs 01/29/25 09:48 01/29/25 09:52 Height 5 ft 4 in Weight 91 lb 7.869 oz 91 lb 7.869 oz BMI 15.7 BP 134/70 Blood Pressure Location Lt brachial Position Sitting Pulse 89 Pulse Source Pulse Oximeter Pulse Oximetry (%) 96 Oxygen Delivery Method Room Air Intake Visit Reasons: Abnormal CT scan Gameroom Technician Required: Yes Gameroom Technician Name: Adriana Up C.L.M Allergies Iodinated Contrast Media (CONTRAST,IV) Allergy (Severe, Verified 01/29/25 09:54) ANGIOEDEMA HPI HPI Abnormal CT scan: Details: 69-year-old lady, active 15 pack-year smoker, referred for evaluation abnormal chest imaging that included lower lobe nodule versus mass noted on CT of abdomen that also demonstrated bilateral adrenal masses. Patient complains of unintended weight loss. She denies personal or family history of lung disease or cancer. She is currently using Advair and albuterol MDI with suboptimal control of her dyspnea on exertion. After the last office visit patient had PET-CT that showed no FDG activity in either bilateral adrenal nodules and stability with lack of FDG activity in pulmonary nodule. [facility] Medical History Cocaine use disorder Cocaine use disorder in remission MDD (major depressive disorder), recurrent severe, without psychosis Hx of sepsis History of asthma Hyperlipidemia HTN (hypertension) Cardiomyopathy ICD (implantable cardioverter-defibrillator) in place CAD (coronary artery disease) Chronic heart failure with reduced ejection fraction and diastolic dysfunction GERD (gastroesophageal reflux disease) Surgical History Hx of cystoscopy H/O hemorrhoidectomy Stented coronary artery Hx of colonoscopy Family History Father Diabetes HTN (hypertension) Mother Diabetes HTN (hypertension) Sister Throat cancer Social History Household Members: None Housing: Apartment Are you a primary critical care nurse to a significant other at home: No Do you presently have visiting nurse or other home services: No Unable to assess alcohol history related to: Unable to respond Alcohol intake: never Comment: sleeping Patient Tobacco Use Status: Current everyday Tobacco user Tobacco use type: Cigarette Cigarette Packs Per Day: 2 Cigarettes Per Day: 40.0 Years Smoked: 38 e-Cigarette/Vaping Use: Never Used Second Hand Smoke Exposure: Yes Substance Use Type: Marijuana Advance Directives Date on File: 04/26/21 service: No Current occupational status: unemployed and disabled Sexual orientation: Straight/Heterosexual Review of Systems Const Denies daytime sleepiness, Denies excessive sweating, Denies fatigue, Denies fever(s), Denies lethargy, Denies malaise, Denies night sweats, Denies snoring and Denies weight loss Eyes Denies blurry vision and Denies itchy eyes ENT Denies nasal congestion, Denies post nasal drip, Denies sinus pain, Denies sinus pressure and Denies other ( Thrush) Card Denies chest pain, Denies pedal edema, Denies dyspnea, Denies orthopnea and Denies paroxysmal nocturnal dyspnea Resp Denies cough, Denies hemoptysis, Denies excessive phlegm production, Denies dyspnea, Denies snoring and Denies wheezing GI Denies abdominal pain and Denies heartburn Musc Denies myalgias, Denies arthralgias and Denies joint swelling Skin/Breast Denies rash Neuro Denies memory loss and Denies seizure-like activity Psych Denies abnormal sleep pattern, Denies anxiety and Denies memory loss Endo Denies excessive sweating, Denies fatigue and Denies heat intolerance Mt/Lymph Denies easy bruising Aller/Immun Denies itchy eyes, Denies seasonal rhinorrhea and Denies wheezing Physical Exam Vital Signs: Last Vital Signs Pulse 89 01/29/25 09:48 BP 134/70 01/29/25 09:52 Pulse Ox 96 01/29/25 09:48 Oxygen Delivery Method Room Air 01/29/25 09:48 BMI result Body Mass Index 15.7 Const General: no acute distress and alert Nutritional Appearance: not obese Orientation/consciousness: Other orientation findings ( oriented) HEENT Head: Yes atraumatic Eyes General: appearance normal, both eyes and all related structures Sclerae: sclerae normal EOM: EOMs intact bilaterally Neck Neck: Yes supple Lymphatic: no lymphadenopathy noted Resp Effort & Inspection: normal respiratory effort and no use of accessory muscles Auscultation: clear to auscultation bilaterally Cardio Rate: regular rate Rhythm: regular rhythm Heart sounds: no gallops, no murmurs and no rubs Skin General skin exam: other ( warm) Extrem General: No clubbing, No cyanosis and No edema Assessment & Plan Assessment & Plan (1) Emphysema lung: Code(s): J43.9 - Emphysema, unspecified Category: Medical Plan: PFT is pending. Now controlled on Anoro and albuterol MDI. Continue current regimen. (2) Pulmonary mass: Code(s): R91.8 - Other nonspecific abnormal finding of lung field Category: Medical Plan: Results of PET scan reviewed, no FDG activity, will repeat CT chest in 3 months. (3) Adrenal nodule: Code(s): E27.9 - Disorder of adrenal gland, unspecified Category: Medical Plan: Bilateral adrenal nodules with no FDG activity on PET, will refer to Endocrinology for further follow-up. Coding Level of Care Code Est Pt Level 4 (63702) Complex EM visit Add On G2211 Diagnoses Emphysema lung J43.9 Pulmonary mass R91.8 Adrenal nodule E27.9
[2025-01-29 09:48] VITALS: PULSE 89; O2SAT 96
[2025-01-29 09:52] VITALS: BP 134/70; BMI 15.7
--- OUTSIDE RECORDS SUMMARY | 2025-01-29 10:40 | XMS_ITS | Clinical Summary ---
Author Organization [facility] Address [address] [place] [address] Phone Care Team Providers Care Shellfish Manager Name Role Phone Kianna Nunez MD Primary Care Provider [phone] Encounters Date Type Department Care Team Description 01/27/2025 10:45 AM EDT Hospital Encounter [facility] PET Scan [address] [place] [address] Other nonspecific abnormal finding of lung field from Last 3 Months Medical History Medical History Date Comments Other primary cardiomyopathies 09/13/2011 D X:Other primary cardiomyopathies Hypertension 09/13/2011 DX:Hypertension Tobacco abuse 09/13/2011 DX:Tobacco abuse Family History Medical History Relation Name Comments Other: heart issues Mother , ?C MP Other: fluid build up Sister 1 Other: dilated heart Sister 2 Relation Name Status Comments Mother Sister 1 Sister 2 Sister 3 Social History Tobacco Use Types Packs/Day Years Used Date Smoking Tobacco: Every Day Alcohol Use Standard Drinks/Week Comments Not Asked 0 (1 standard drink = 0.6 oz pur e alcohol) Comments Unknown Sex and Gender Information Value Date Recorded Sex Assigned at Not on file Legal Sex Female 3:58 AM EST Gender Identity Not on file Sexual Orientation Not on file Obstetrics History Last Filed Vital Signs Vital Sign Reading Time Taken Comments Blood Pressure - - Pulse - - Temperature - - Respiratory Rate - - Oxygen Saturation - - Inhaled Oxygen Concentration - - Weight 43.5 kg (96 lb) 10/11/2023 2:50 PM EDT Height 152.4 cm (5') 10/11/2023 2:50 PM EDT Body Mass Index 18.75 10/11/2023 2:50 PM EDT Plan of Treatment Health Maintenance Due Date Last Done Comments RSV Immunization Adult Patients (1 - Risk 60-74 years 1-dose series) 2014 Breast Cancer Screening 01/10/2021 01/10/2019 Zoster Vaccines (3 of 3) 08/28/2022 07/03/2022, 12/02 Colorectal Cancer Screening: Colonoscopy 01/01/2024 Falls Risk Assessment 01/01/2024 Osteoporosis Screening (Bone Density Screening) 01/01/2024 Social Influencers of Health Screening 01/01/2024 Depression Screening 06/04/2024 COVID-19 Vaccine ( season) 2024 04/09/2024, 08/22/2023, 03/02/2021, Additional history exists Influenza Vaccine (#1) 2025 , 03/16/2023, 02/20/2022, Additional history exists Hepatitis B Vaccines (3 of 3 - 19+ 3-dose series) 02/13/2025 12/19/2024, 02/02/2006 DTaP,Tdap,and Td Vaccines (3 - Td or Tdap) 12/13/2025 12/14/2015, 08/13/2006 Hypertension/CHF/CAD Annual BMP Blood Test 12/31/2025 12/31/2024, 10/28/2024 Cholesterol Screening (Lipid Panel) 12/31/2029 12/31/2024 Pneumococcal Vaccine: 50+ Years Completed 07/03/2022, 10/11/2015, 08/10/2007 Hepatitis C Screening Completed 05/09/2024 HIB Vaccines [...] on patient's age to complete this topic MMR Vaccines Aged Out No longer eligi ble based on patient's age to complete this topic Meningococcal ACWY Vaccine Aged Out N o longer eligible based on patient's age to complete this topic Meningococcal B Vaccine Aged Out No l onger eligible based on patient's age to complete this topic RSV Immunization Patients Under 20 months Aged Out No longer eligible based on patient's age to complete this topic Varicella Vaccines Aged Out No longer eligible based on patient's age to complete this topic Procedures Procedure Name Priority Date/Time Associated Diagnosis Comments PET CT SKULL TO MID THIGH INITIAL Routine 01/27/2025 1:15 PM EDT Other nonspecific abnormal finding of lung field from Last 3 Months Results * PET CT Skull to Mid [...] Signed Date: 01/28/2025 12:32 ET Workstation ID: [id number] Transcribed By: Self Edit Transcribed Date: 01/28/2025 [...] Signed Date: 01/28/2025 12:32 ET Workstation ID: [id number] Transcribed By: Self Edit Transcribed Date: 01/28/2025 12:23 ET Paul Andre MD [facility] PROCEDURES Final Result from Last [address] [facility] Care Teams Shellfish Manager Relationship Specialty Start Date End Date Kianna Nunez MD [address] [place] [address] PCP - General 08/27/23
== END 2025-01-29 10:15 | disposition home or self-care (01) ==
LOC: HO.HPS 09:36
PROVIDERS: PCP Family Medicine; Visit Provider Internal Medicine Pulmonary Disease
DX: J43.9 Emphysema, unspecified (principal); R91.8 Other nonspecific abnormal finding of lung field; E27.9 Disorder of adrenal gland, unspecified
CPT/HCPCS: 99214; G2211

== ENCOUNTER → 2025-01-29 09:35 | Outpatient (BNVA) | payer OTHER, SELFPAY | PROVIDERS: PCP Family Medicine; Visit Provider Internal Medicine Pulmonary Disease | DX: Z71.2 Person consulting for explanation of examination or test findings (principal); R91.8 Other nonspecific abnormal finding of lung field; J43.9 Emphysema, unspecified; E27.9 Disorder of adrenal gland, unspecified | CPT/HCPCS: 99212 ==

== ENCOUNTER 2025-02-05 11:45 | Outpatient (AMB) | payer OTHER, SELFPAY ==
--- NOTE | 2025-02-05 11:49 | A.OFFVIS_ITS ---
Vital Signs 02/05/25 11:56 Height 5 ft 4 in Weight 93 lb 0.561 oz BMI 16.0 BP 98/62 Blood Pressure Location Lt brachial Position Sitting Pulse 83 Intake Visit Reasons: [place] screening r/s 10/22/24 Intake Note: Patient in office today for colonoscopy consult. CC: Patient c/o lower abdominal pain and rectal pain on and off for years. She also c/o constipation alternating with diarrhea, and GERD. Premix Operator Concentrate Required: Yes Accompanied by: DRILLING SUPERINTENDENT Allergies Iodinated Contrast Media (CONTRAST,IV) Allergy (Severe, Verified 02/05/25 12:00) ANGIOEDEMA HPI HPI [place] screening r/s 10/22/24: Details: 69-year-old female here for preprocedural meeting to discuss a screening colonoscopy. She is referred by [facility]. PMX Asthma High cholesterol Hypertension Heart failure with reduced ejection fraction SVT ICD defibrillator Coronary artery disease Cardiomyopathy Cocaine disorder in remission History of sepsis Nephrolithiasis Hemorrhoids IBS SM Rectal spasm Depression Assessment & Plan (1) Rectal candidiasis: Comment: Resolved with the nystatin cream precipitated by antibiotic use Code(s): B37.89 - Other sites of candidiasis Category: Medical Plan - ANGELIA AlbarranC: ARMENIAN #[id number], [place]. She tells me she is doing ?magnificently well!? She does credit the rectal cream and the increase of her imipramine moved to her remission of symptoms. I am extremely happy to hear this and she is not extremely satisfied with her regimen. She will occasionally have a feeling that she describes is pushing in the rectal area but it is not bothersome to her. I explained that that is continued rectal spasm and if it becomes worse we can increase her imipramine but otherwise it cannot anything harmful that she needs to be worried about. She opts to maintain her current regimen as she finds that it spine. She is agreeable to a four-month follow-up. (2) Rectal spasm: Code(s): K59.4 - Anal spasm Category: Medical (3) Irritable bowel syndrome with both constipation and diarrhea: Code(s): K58.2 - Mixed irritable bowel syndrome Category: Medical (4) Hemorrhoids: Code(s): K64.9 - Unspecified hemorrhoids Category: Medical Plan - Deepthi Trevino, ANP-C: Resolved after treating with hemorrhoid cream LABS Laboratory Tests 12/31/24 11:02 WBC 5.5 RBC 3.69 L Hgb 11.1 L Hct 34.1 L MCV 92.4 MCH 30.1 Plt Count 252 D BUN 38 H Creatinine 2.84 H Estimated GFR 16 Total Bilirubin 0.5 AST 23 ALT 14 Alkaline Phosphatase 70 TSH 0.61 TODAYS VISIT Austrian #Anyi Kamran I have never seen this patient since 08/2020 She has serious cardiac disease with low ejection fraction but also has a defibrillator/patient place. She also has COPD and end-stage chronic kidney disease. [facility] Medical History Acute pyelonephritis E coli bacteremia Rectal candidiasis Urinary tract infection UTI (urinary tract infection) Cocaine use disorder Cocaine use disorder in remission MDD (major depressive disorder), recurrent severe, without psychosis Hx of sepsis History of asthma Hyperlipidemia HTN (hypertension) Cardiomyopathy ICD (implantable cardioverter-defibrillator) in place CAD (coronary artery disease) Chronic heart failure with reduced ejection fraction and diastolic dysfunction GERD (gastroesophageal reflux disease) Surgical History (Updated 02/05/25 @ 12:06 by TONY Albarran) Hx of cystoscopy H/O hemorrhoidectomy Stented coronary artery Hx of colonoscopy Family History Father Diabetes HTN (hypertension) Mother Diabetes HTN (hypertension) Sister Throat cancer Family/Other Colon cancer Social History Household Members: None Housing: Apartment Are you a primary career technical education teacher to a significant other at home: No Do you presently have visiting nurse or other home services: No Unable to assess alcohol history related to: Unable to respond Alcohol intake: never Comment: sleeping Patient Tobacco Use Status: Current everyday Tobacco user Tobacco use type: Cigarette Cigarette Packs Per Day: 2 Cigarettes Per Day: 40.0 Years Smoked: 38 e-Cigarette/Vaping Use: Never Used Second Hand Smoke Exposure: Yes Substance Use Type: Marijuana Advance Directives Date on File: 04/26/21 service: No Current occupational status: unemployed and disabled Sexual orientation: Straight/Heterosexual Review of Systems Const Denies fatigue, Denies fever(s), Denies night sweats, Denies poor appetite and Denies weight loss Eyes Details: glasses Reports requires corrective lenses ENT Reports Normal hearing present, Denies dental pain, Denies dysphagia, Denies hearing loss, Denies mouth pain, Denies odynophagia, Denies throat swelling, Denies tongue swelling and Reports other (Dentition adequate) Card Reports no additional complaints and Reports dyspnea on exertion Resp Reports dyspnea on exertion GI Details: Denies abdominal pain, Denies melena, Denies bloating, Denies hematochezia, Denies constipation, Denies GI cramping, Denies dysphagia, Denies excessive flatus, Denies early satiety, Denies heartburn, Denies diarrhea, Denies nausea, Denies odynophagia, Denies vomiting and Denies hematemesis Skin/Breast Denies pruritus, Denies lesions, Denies rash and Denies jaundice Neuro Reports Normal hearing present and Denies Abnormal speech present Endo Denies fatigue Aller/Immun Denies throat swelling and Denies tongue swelling Physical Exam Vital Signs: Last Vital Signs Pulse 83 02/05/25 11:56 BP 98/62 02/05/25 11:56 BMI result Body Mass Index 16.0 Const General: cooperative, no acute distress, well developed and well groomed Nutritional Appearance: well nourished and thin Orientation/consciousness: oriented to person, oriented to place and oriented to time Limitations: language barrier HEENT Head: Yes normocephalic and Yes atraumatic Eyes General: appearance normal, both eyes and all related structures Pupils: Equal, round and reactive pupils present Neck Neck: Yes normal visual inspection and Yes no lymphadenopathy Thyroid: Thyroid normal Resp Effort & Inspection: normal respiratory effort and able to speak in complete sentences Auscultation: clear to auscultation bilaterally Cardio Rate: regular rate Rhythm: regular rhythm Heart sounds: Normal, physiologic split S2 sound present Peripheral pulses: radial pulses present and posterior tibial pulses present GI Inspection: No distended and No Abdominal panniculus present Palpation (GI): Soft to palpation, nontender, no guarding, not rigid and No hepatosplenomegaly present Percussion: Yes normal to percussion Auscultation: normal bowel sounds Rectal Exam - Female: deferred Skin General skin exam: no rashes or lesions noted, turgor normal, skin not dry, no jaundice, No spider nevi and no striae Rashes: no rashes Nails: normal Neuro General: oriented to person, oriented to place and oriented to time Cranial nerves: Yes Equal, round and reactive pupils present and Yes Normal hearing present Speech: No Abnormal speech present Extrem General: Yes normal to inspection, No clubbing, No cyanosis and No edema Psych Appearance: grossly normal and well kempt Mental Status: mental status grossly normal Speech and movement: Normal speech and movement present Affect: normal affect Attitude: cooperative Thought process: Normal thought process present and not confabulating Thought content: Normal thought content present Insight: Fair insight present (Psych) Judgement: Fair judgement present (Psych) Assessment & Plan Assessment & Plan (1) Irritable bowel syndrome with both constipation and diarrhea: Code(s): K58.2 - Mixed irritable bowel syndrome Category: Medical (2) Rectal spasm: Code(s): K59.4 - Anal spasm Category: Medical (3) ICD (implantable cardioverter-defibrillator) in place: Code(s): Z95.810 - Presence of automatic (implantable) cardiac defibrillator Category: Medical (4) Cardiomyopathy: Code(s): I42.9 - Cardiomyopathy, unspecified Category: Medical (5) Acute kidney injury superimposed on CKD: Code(s): N17.9 - Acute kidney failure, unspecified; N18.9 - Chronic kidney disease, unspecified Category: Medical (6) Heart failure with reduced ejection fraction: Code(s): I50.20 - Unspecified systolic (congestive) heart failure Category: Medical (7) Cocaine use disorder: Code(s): F14.10 - Cocaine abuse, uncomplicated Category: Medical (8) Pulmonary mass: Code(s): R91.8 - Other nonspecific abnormal finding of lung field Category: Medical (9) Emphysema lung: Code(s): J43.9 - Emphysema, unspecified Category: Medical (10) Pre-op examination: Code(s): Z01.818 - Encounter for other preprocedural examination Category: Medical Plan Austrian #Anyi Live I have never seen this patient since 08/2020 She has serious cardiac disease with low ejection fraction but also has a defibrillator/patient place. She also has COPD and end-stage chronic kidney disease. Given no first-degree relatives with colon cancer and her having no past polyps we will proceed to Cologuard. I THINK THIS IS A DIETRICH 1ST APPROACH GIVEN THE PATIENT'S ADVANCED AGE AND MULTIPLE COMORBIDITIES. She was made aware that if the test is positive then we will need to consider colonoscopy, but then at least we will know the risk is warranted in terms of potential long-term benefit. Return office visit in 8 weeks Coding Level of Care Code New Pt Level 3 (10742) Diagnoses Irritable bowel syndrome with both constipation and diarrhea K58.2 Rectal spasm K59.4 ICD (implantable cardioverter-defibrillator) in place Z95.810 Cardiomyopathy I42.9 Acute kidney injury superimposed on CKD N17.9; N18.9 Heart failure with reduced ejection fraction I50.20 Cocaine use disorder F14.10 Pulmonary mass R91.8 Emphysema lung J43.9 Pre-op examination Z01.818
[2025-02-05 11:56] VITALS: BP 98/62; PULSE 83; BMI 16.0
--- OUTSIDE RECORDS SUMMARY | 2025-02-05 13:26 | XMS_ITS | Encounter Summary ---
Author Organization [employer] [facility] Address [address]t [place] [address] Care Team Providers Care Rn Cardiac Name Role Phone Kianna Nunez MD Primary Care Provider [phone] Encounter Details Date Type Department Care Team ([facility] Contact Info) Description 08/31/2022 Orders Only [facility] MED & PEDS [address] [place], [place] [phone] Timothy Ibrahim MD [address] [place], [place] [phone] Social History Tobacco Use Types Packs/Day Years [...] Upcoming Encounters Date Type Department Care Team ([facility] Contact Info) Description 03/30/2025 10:00 AM EDT Office Visit [facility] [address] [place], [place] [phone] Kianna Nunez MD [address] [place], [place] [phone] documented as of this encounter Procedures Procedure Name Priority Date/Time Associated Diagnosis Comments CULTURE, URINE, ROUTINE Routine 01/05/2023 10:30 AM EDT documented in this encounter Results * Culture, Urine, Routine (01/05/2023 10:30 AM EDT) Urine specimen obtained by clean catch procedure / Unknown 01/05/2023 10:30 AM EDT 01/05/2023 2:58 PM EDT Comment:[facility] - 01/07/2023 7:34 AM EDT Escherichia coli Quant > 100,000 cfu/mL Escherichia coli: Ampicillin >=32(R) Escherichia coli: Ceftriaxone <=0.25(S) Escherichia coli: Gentamicin <=1(S) Escherichia coli: Levofloxacin >=8(R) Escherichia coli: Nitrofurantoin <=16(S) Escherichia coli: Trimethoprim/Sulfamethoxazole <=20(S) Specimen Source: Urine clean catch us Kianna Nunez MD LAB MICROBIOLOGY - GENERAL OR DERABLES Final Result Performing Organization Address City/State/[facility] Co de Phone Number [facility] [address] [place] [phone] documented in this encounter Visit Diagnoses Not on filedocumented in this encounter Care Teams Rn Cardiac Relationship Specialty Start Date End Date Kianna Nunez MD [address] [place] [address] PCP - General Family Medicine 02/02/20 Kleber Liu MD Printed Circuit Boards Inspector 06/04/04 Anaya Parikh OD Optometry 04/09/24 Dorian Edouard Shuttle Veneering Supervisor 06/04/04 [employer] Truck Engine Technician 04/09/24 documented as of this encounter
--- OUTSIDE RECORDS SUMMARY | 2025-02-05 13:26 | XMS_ITS | Encounter Summary ---
Author Organization [employer] Address [address] [place] [address] Care Team Providers Care Sed Special Education Teacher Name Role Phone Kianna Nunez MD Primary Care Provider [phone] Reason for Visit * Reason Onset Date Comments Pre-op Exam 11/15/2023 Encounter Details Date Type Department Care Team ([facility] st Contact Info) Description 11/15/2023 Telephone [facility] MED & PEDS [address] [place], [place] [phone] Kianna Nunez MD [address] [place] [address] Pre-op Exam Social History Tobacco Use Types [...] with others, in a hotel, in a penitentiary, living outside on the street, on a [...] no Surgeon's name: Dr. Agustin Facility name: [facility] Surgeon's office number: [phone] Surgeon's office fax number: [phone] Contact name (person you spoke with): Kelli Last office note from surgeon requested: Pre-Op notes documented in this encounter Plan of Treatment Upcoming Encounters Date Type Department Care Team (Late st Contact Info) Description 03/30/2025 10:00 AM EDT Office Visit [facility] MED & PEDS [address] [place] [address] Kianna Nunez MD [address] [place] [address] documented as of this encounter Visit Diagnoses Not on filedocumented in this encounter Additional Health Concerns Assessment Noted Time PHQ-9 Depression Total Score: 0 05/01/20 23 2:20 PM EST documented as of this encounter Care Teams Sed Special Education Teacher Relationship Specialty Start Date End Date Kianna Nunez MD [address] [place] [address] PCP - General Family Medicine 02/02/20 Kleber Liu MD Banquet Attendant 06/04/04 Anaya Parikh OD Optometry 04/09/24 Dorian Edouard Section Plotter Operator 06/04/04 [employer] Adult Education Instructor 04/09/24 documented as of this encounter
--- OUTSIDE RECORDS SUMMARY | 2025-02-05 13:26 | XMS_ITS | Encounter Summary ---
Author Organization [employer] Address [address]t [place] [address] Care Team Providers Care Pillar Man Name Role Phone Kianna Nunez MD Primary Care Provider [phone] Encounter Details Date Type Department Care Team (Late st Contact Info) Description 01/28/2025 Orders Only [facility] [address] [place] [address] Provider, MD [place] Social History Tobacco Use Types Packs/Day Years [...] Answer Date Recorded Patient Health Questionnaire-9 Score 7 12/19/2024 Patient Health Questionnaire-9 Score 7 12/19/2024 Last PHQ-9: Questionnaire Data Not on file 0 12/19/2024 Housing Stability Answer Date Recorded What is [...] Answer Date Recorded Patient Health Questionnaire-2 Score 2 12/19/2024 Internet Access Answer Date Recorded Internet Access Q1 No 11/04/2024 Internet Access Q2 I do not want or need it 08/2024 Comments Unknown Sex and Gender Information Value [...] Description 03/30/2025 10:00 AM EDT Office Visit [facility] MED & PEDS [address] [place] [address] Kianna Nunez MD [address] [place] [address] documented as of this encounter Procedures Procedure Name Priority Date/Time Associated Diagnosis Comments PET/CT BONE SKULL BASE TO MID THIGH Routine 01/27/2025 3:26 PM EDT documented in this encounter Results * PET/CT Bone Skull Base to Mid Thigh (01/27/2025 3:26 PM EDT) Anatomical Region Laterality Modality Body Computed Tomogra phy us Historical Provider MD NAIDU CT PROCEDURES Final R esult documented in this encounter Visit Diagnoses Not on filedocumented in this encounter Additional Health Concerns Assessment Noted Time PHQ-9 Depression Total Score: 7 12/20/19 25 9:35 AM EDT documented as of this encounter Care Teams Pillar Man Relationship Specialty Start Date End Date Kianna Nunez MD [address] [place] [address] PCP - General Family Medicine 02/02/20 Kleber Liu MD Fabric And Textile Factory Worker 06/04/04 Anaya Parikh OD Optometry 04/09/24 Dorian Edouard Handkerchief Presser 06/04/04 [employer] Premium Note Interest Calculator Clerk 04/09/24 documented as of this encounter
--- OUTSIDE RECORDS SUMMARY | 2025-02-05 13:26 | XMS_ITS | Encounter Summary ---
Author Organization [employer] Address [address] [place] [address] Care Team Providers Care Data Processing Mechanic Name Role Phone Kianna Nunez MD Primary Care Provider [phone] Reason for Visit * Reason Onset Date Comments restrictions for grand daughter 12/30/2024 Encounter Details Date Type Department Care Team ([facility] st Contact Info) Description 12/30/2024 Telephone [facility] MEDICINE [address] [place] [address] Kianna Nunez MD [address] [place], [place] [phone] restrictions for grand daughter Social History Tobacco Use Types Packs/Day Years [...] your housing situation today? I have tor nayana 02/15/[address] you li [...] * Telephone Encounter - Delmis Zaragoza - 12/30/2024 12:40 PM EDT Patient called in stating she is concerned that her appt on 01/05 has been cancelled due to her grand daugher calling in to cancel appts without her permission and then telling her daughters in [place] that she is not coming to her appts. Upon review of patient chart, her appt on 01/05 has not been cancelled. However she states that her grand daughter Mendy Nye has cancelled appts in the past.She says she needs to keep this appt because her daughters are comin gin from [place] to meet her PCP and discuss medical concerns. She does not want her grand daughter Mendy Nye to have access toher information DR documented in this encounter Plan of Treatment Upcoming Encounters Date Type Department Care Team ([facility] st Contact Info) Description 03/30/2025 10:00 AM EDT Office Visit [facility] MED & PEDS [address] [place], [place] [phone] Kianna Nunez MD [address] [place], [place] [phone] documented as of this encounter Visit Diagnoses Not on filedocumented in this encounter Additional Health Concerns Assessment Noted Time PHQ-9 Depression Total Score: 7 12/20/19 25 9:35 AM EDT documented as of this encounter Care Teams Data Processing Mechanic Relationship Specialty Start Date End Date Kianna Nunez MD [address] [place] [address] PCP - General Family Medicine 02/02/20 Kleber Liu MD Drawstring Knotter 06/04/04 Anaya Parikh OD Optometry 04/09/24 Dorian Edouard Gum Machine Filler 06/04/04 [employer] Manager Access 04/09/24 documented as of this encounter
--- OUTSIDE RECORDS SUMMARY | 2025-02-05 13:26 | XMS_ITS | Encounter Summary ---
Author Organization [employer] Address [address] [place] [address] Care Team Providers Care Handy Worker Name Role Phone Kianna Nunez MD Primary Care Provider Reason for Visit * Reason Comments Med Refill Encounter Details Date Type Department Care Team ([facility] st Contact Info) Description 02/03/2025 Refill [facility]S [address] [place] [address] Lara Alanis MD [address] [place] [address] Failure to thrive in adult Social History Tobacco Use Types Packs/Day Years [...] Description 03/30/2025 10:00 AM EDT Office Visit [facility] MED & PEDS [address] [place] [address] Kianna Nunez MD [address] [place] [address] documented as of this encounter Visit Diagnoses Diagnosis Failure to thrive in adult Adult failure to thrive documented in this encounter Additional Health Concerns Assessment Noted Time PHQ-9 Depression Total Score: 7 12/20/19 25 9:35 AM EDT documented as of this encounter Care Teams Handy Worker Relationship Specialty Start Date End Date Kianna Nunez MD [address] [place] [address] PCP - General Family Medicine 02/02/20 Kleber Liu MD Director Corporate Compliance 06/04/04 Anaya Parikh OD Optometry 04/09/24 Dorian Edouard Plant Health Manager 06/04/04 [employer] Delimer 04/09/24 documented as of this encounter
--- OUTSIDE RECORDS SUMMARY | 2025-02-05 13:26 | XMS_ITS | Encounter Summary ---
Author Organization [email or web address] Address [address] [place] [address] Care Team Providers Care High School Agriculture Teacher Name Role Phone Kianna Nunez MD Primary Care Provider [phone] Reason for Visit * Reason Comments Med Refill Encounter Details Date Type Department Care Team ([facility] st Contact Info) Description 02/05/2025 Refill C [facility] [address] [place] [address] Kianna Nunez MD [address] [place] [address] Social History Tobacco Use Types Packs/Day Years [...] Description 03/30/2025 10:00 AM EDT Office Visit [facility] MED & PEDS [address] [place] [address] Kianna Nunez MD [address] [place] [address] documented as of this encounter Visit Diagnoses Not on filedocumented in this encounter Additional Health Concerns Assessment Noted Time PHQ-9 Depression Total Score: 7 12/20/19 25 9:35 AM EDT documented as of this encounter Care Teams High School Agriculture Teacher Relationship Specialty Start Date End Date Kianna Nunez MD [address] [place] [address] PCP - General Family Medicine 02/02/20 Kleber Liu MD All Round Butcher 06/04/04 Anaya Parikh OD Optometry 04/09/24 Dorian Edouard Ambulatory Care 06/04/04 [employer] Fitter Armament 04/09/24 documented as of this encounter
--- OUTSIDE RECORDS SUMMARY | 2025-02-05 13:26 | XMS_ITS | Encounter Summary ---
Author Organization [employer] Address [address] [place] [address] Care Team Providers Care Accounts Receivable Assistant Name Role Phone Kianna Nunez MD Primary Care Provider [phone] Reason for Visit * Reason Onset Date Comments insurance update 10/05/2022 Appointment 10/05/2022 Encounter Details Date Type Department Care Team ([facility] st Contact Info) Description 10/05/2022 Telephone [facility] [address] [place] [address] Felisha Burkett DDS insurance update; Appointment Social [...] - 10/05/2022 10:06 AM EDT Bartolo from [facility] called in stating that patient had appt a couple of days ago but was unable to be seen due to apparently having no insurance coverage. She does have coverage through [facility] benefit providers. The id number for the dental portion would be [id number]. Please update insurance info and contact patient for rescheduling DR documented in this encounter Plan of Treatment Upcoming Encounters Date Type Department Care Team (Late st Contact Info) Description 03/30/2025 10:00 AM EDT Office Visit [facility] MED & PEDS [address] [place] [address] Kianna Nunez MD [address] [place] [address] documented as of this encounter Visit Diagnoses Not on filedocumented in this encounter Care Teams Accounts Receivable Assistant Relationship Specialty Start Date End Date Kianna Nunez MD [address] [place] [address] PCP - General Family Medicine 02/02/20 Kleber Liu MD Tooling Specialist 06/04/04 Anaya Parikh OD Optometry 04/09/24 Dorian Edouard Buck Swamper 06/04/04 [employer] Reeling Machine Operator 04/09/24 documented as of this encounter
--- OUTSIDE RECORDS SUMMARY | 2025-02-05 13:26 | XMS_ITS | Encounter Summary ---
Author Organization [employer] Address [address] [place] [address] Care Team Providers Care Strategic Marketing Associate Name Role Phone Kianna Nunez MD Primary Care Provider [phone] Reason for Visit * Reason Onset Date Comments Nurse Triage 01/08/2024 Encounter Details Date Type Department Care Team (Late st Contact Info) Description 01/08/2024 Telephone [facility] [address] [place] [address] Kianna Nunez MD [address] [place], [place] [id number] Nurse Triage Social History Tobacco Use Types [...] with others, in a hotel, in a [facility], living outside on the street, on a [...] to speak for Pt. Pt only speaks armenian. Pt has been having some rectal bleeding [...] ASK apt with Dr. Mcgowan, 01/16/24 @ [facility]. Insurance is verified as active prior to [...] 01/08/2024 2:20 PM EDT Triage call with [place] [id number]. Call to [phone] unable to get connection, callto [phone] unable to get connection. * Telephone Encounter - Ruba Hinson - 01/08/2024 2:09 PM EDT Symptoms: Body Aches, Urination Pain Outcome: Schedule an urgent appointment (within 1 hour) or talk to a nurse or provider soon Reason: Severe pain now The caller accepted this outcome Please contact at [phone] documented in this encounter Plan of Treatment Upcoming Encounters Date Type Department Care Team (Late st Contact Info) Description 03/30/2025 10:00 AM EDT Office Visit [facility] [address] [place] [address] Kianna Nunez MD [address] [place] [address] documented as of this encounter Visit Diagnoses Not on filedocumented in this encounter Additional Health Concerns Assessment Noted Time PHQ-9 Depression Total Score: 0 05/01/20 23 2:20 PM EST documented as of this encounter Care Teams Strategic Marketing Associate Relationship Specialty Start Date End Date Kianna Nunez MD [address] [place] [address] PCP - General Family Medicine 02/02/20 Kleber Liu MD Mid Wife 06/04/04 Anaya Parikh OD Optometry 04/09/24 Dorian Edouard Assistant Teacher Primary 06/04/04 [employer] [facility] [employer] It Specialist 04/09/24 documented as of this encounter
--- OUTSIDE RECORDS SUMMARY | 2025-02-05 13:26 | XMS_ITS | Encounter Summary ---
Author Organization [employer] Address [address] [place] [address] Care Team Providers Care Patrol Commander Name Role Phone Kianna Nunez MD Primary Care Provider [phone] Reason for Visit * Reason Comments Med Refill Encounter Details Date Type Department Care Team ([facility] st Contact Info) Description 09/24/2024 Refill [facility] [address] [place] [address] Kianna Nunez MD [address] [place] [address] Pain Social History Tobacco Use Types Packs/Day [...] Upcoming Encounters Date Type Department Care Team ([facility] st Contact Info) Description 03/30/2025 10:00 AM EDT Office Visit [facility] [address] [place] [address] Kianna Nunez MD [address] [place] [address] documented as of this encounter Visit Diagnoses Diagnosis Pain Generalized pain documented in this encounter Additional Health Concerns Assessment Noted Time PHQ-9 Depression Total Score: 18 024 10:34 AM EST documented as of this encounter Care Teams Patrol Commander Relationship Specialty Start Date End Date Kianna Nunez MD [address] [place] [address] PCP - General Family Medicine 02/02/20 Kleber Liu MD Pediatric Occupational Therapist 06/04/04 Anaya Parikh OD Optometry 04/09/24 Dorian Edouard Cracker Sprayer 06/04/04 [facility] Sales Program Coordinator 04/09/24 documented as of this encounter
--- OUTSIDE RECORDS SUMMARY | 2025-02-05 13:26 | XMS_ITS | Clinical Summary ---
Author Organization [facility] Address [address] [place] [address] Phone Care Team Providers Care Career Services Director Name Role Phone Kianna Nunez MD Primary Care Provider [phone] Encounters Date Type Department Care Team Description 01/27/2025 10:45 AM EDT - 01/27/2025 11:59 PM EDT Hospital Encounter [facility] PET Scan [address] [place] [address] Other nonspecific abnormal finding of lung field Discharge Disposition: Home or Self Care from Last 3 Months Medical History Medical [...] Depression Screening 06/04/2024 COVID-19 Vaccine ( season) 2025 04/09/2024, 08/22/2023, 03/02/2021, Additional history exists Influenza [...] Signed Date: 01/28/2025 12:32 ET Workstation ID: [id number] Transcribed By: Self Edit Transcribed Date: 01/28/2025 [...] Signed Date: 01/28/2025 12:32 ET Workstation ID: [id number] Transcribed By: Self Edit Transcribed Date: 01/28/2025 12:23 ET Paul Andre MD IM NM PROCEDURES Final Result from Last [address] [place] [address] [facility] Care Teams Career Services Director Relationship Specialty Start Date End Date Kianna Nunez MD [address] [place] [address] PCP - General 08/27/23
--- OUTSIDE RECORDS SUMMARY | 2025-02-05 13:26 | XMS_ITS | Clinical Summary ---
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 Name Role Phone Kianna Nunez MD Primary Care Provider [phone] Allergies Active Allergy Reactions Criticality Noted Date [...] DAY FOR 3 DAYS 11/28/19 24 Active FLUoxetine (PROzac) 20 MG capsuleIndication s:Anxiety TAKE 1 CAPSULE BY MOUTH EVERY MORNING 90 capsule 1 09/10/19 25 Active torsemide (Demadex) 20 MG tabletIndications :Chronic heart failure, unspecified heart failure type (CMS/HCC) TAKE 1 TABLET BY MOUTH EVERY MORNING 90 tablet 1 09/10/19 25 Active imipramine (Tofranil) 50 MG tabletIndications :Painful spasm of anus TAKE 1 TABLET BY MOUTH AT BEDTIME 90 tablet 1 10/10/19 25 Active hydrOXYzine pamoate (Vistaril) 25 MG capsule TAKE 1 CAPSULE BY MOUTH EVERY 8 HOURS NEEDED FOR ANXIETY 90 capsule 5 10/17/19 25 Active Acetaminophen Extra Strength 500 MG tabletIndications :Pain TAKE 2 TABLETS BY MOUTH EVERY 8 HOURS NEEDED FOR PAIN 180 tablet 1 12/13/19 25 Active donepezil (Aricept) 5 MG tablet Take 5 mg by mouth at bedtime. 11/13/19 25 Active docusate sodium (Colace) 100 MG capsule Take 1 capsule (100 mg) by mouth 2 times daily. 180 capsule 12/20/19 25 Active senna (Senokot) 8.6 MG tablet Take 2 tablets (17.2 mg) by mouth if needed at bedtime for constipation . 180 tablet 12/20/19 25 Active ferrous gluconate (Fergon) 324 (38 Fe) MG tablet Take 1 tablet (324 mg) by mouth every other day. 90 tablet 12/20/19 25 Active Anoro Ellipta 62.5-25 MCG/ACT aerosol powder 12/27/19 25 Active atorvastatin (Lipitor) 40 MG tabletIndications :Hyperlipidemia, unspecified hyperlipidemia type TAKE 1 TABLET BY MOUTH AT BEDTIME 90 tablet 01/08/20 25 Active isosorbide mononitrate ER (Imdur) 30 MG 24 hr tabletIndications :Chronic heart failure, unspecified heart failure type (CMS/HCC) TAKE 1 TABLET BY MOUTH EVERY MORNING 90 tablet 01/08/20 25 Active pantoprazole (ProtoNix) 40 MG EC tabletIndications :Gastroesophageal reflux disease, unspecified whether esophagitis present TAKE 1 TABLET BY MOUTH EVERY MORNING 90 tablet 01/08/20 25 Active Calcium + Vitamin D3 600-5 MG-MCG tablet TAKE 1 TABLET BY MOUTH TWICE DAILY IN THE MORNING AND IN THE EVENING 60 tablet 01/08/20 25 Active Ascorbic Acid (vitamin C) 250 MG tablet TAKE 1 TABLET BY MOUTH EVERY MORNING 30 tablet 01/08/20 25 Active carvedilol (Coreg) 25 MG tablet TAKE 1 AND 1/2 TABLETS BY MOUTH TWICE DAILY IN THE MORNING AND IN THE EVENING 90 tablet 01/08/20 25 Active Fluticasone-Salme terol (Advair Diskus) 250-50 MCG/ACT aerosol powder Inhale 1 puff 2 times daily. INHALE 1 PUFF BY MOUTH TWICE DAILY RINSE MOUTH AFTER USING. 60 each 01/08/20 25 Active mirtazapine (Remeron) 30 MG tabletIndications :Failure to thrive in adult TAKE 1 TABLET BY MOUTH AT BEDTIME 90 tablet 02/05/20 25 Active hydrALAZINE (Apresoline) 25 MG tablet TAKE 1 TABLET BY MOUTH THREE TIMES DAILY IN THE MORNING, EVENING, AND BEDTIME 90 tablet 2 02/06/20 Active carvedilol (Coreg) 25 MG tablet TAKE 1 AND 1/2 TABLETS BY MOUTH TWICE DAILY IN THE MORNING AND IN THE EVENING 90 tablet 11 01/07/20 24 2024 Discontinued Ascorbic Acid (vitamin C) 250 MG tablet TAKE 1 TABLET BY MOUTH EVERY MORNING 30 tablet 11 01/07/20 24 2024 Discontinued Calcium + Vitamin D3 600-5 MG-MCG tablet TAKE 1 TABLET BY MOUTH TWICE DAILY IN THE MORNING AND IN THE EVENING 60 tablet 11 01/07/20 24 2024 Discontinued lidocaine (Xylocaine) 5 % ointmentIndicatio ns:Rectal tenesmus,Anal fissure Apply topically if needed for mild pain. 60 g 01/30/20 24 2024 atorvastatin (Lipitor) 40 MG tabletIndications :Hyperlipidemia, unspecified hyperlipidemia type TAKE 1 TABLET BY MOUTH AT BEDTIME 90 tablet 1 07/15/19 25 2024 Discontinued isosorbide mononitrate ER (Imdur) 30 MG 24 hr tabletIndications :Chronic heart failure, unspecified heart failure type (CMS/HCC) TAKE 1 TABLET BY MOUTH EVERY MORNING 90 tablet 1 07/15/19 25 2024 Discontinued mirtazapine (Remeron) 30 MG tabletIndications :Failure to thrive in adult TAKE 1 TABLET BY MOUTH AT BEDTIME 90 tablet 1 07/15/19 25 2024 Discontinued pantoprazole (ProtoNix) 40 MG EC tabletIndications :Gastroesophageal reflux disease, unspecified whether esophagitis present TAKE 1 TABLET BY MOUTH EVERY MORNING 90 tablet 1 07/15/19 25 2024 Discontinued Fluticasone-Salme terol (Advair Diskus) 250-50 MCG/ACT aerosol powder INHALE 1 PUFF BY MOUTH TWICE DAILY RINSE MOUTH AFTER USING. 14 each 5 07/15/19 25 2024 Discontinued(R eorder (will not trigger notification to Pharmacy)) hydrALAZINE (Apresoline) 25 MG tablet TAKE 1 TABLET BY MOUTH THREE TIMES DAILY IN THE MORNING, EVENING, AND BEDTIME 90 tablet 2 11/08/19 25 2024 Discontinued sulfamethoxazole- trimethoprim (Bactrim DS) 800-160 MG tablet Take 1 tablet by mouth 2 times daily for 3 days. 6 tablet 01/23/20 25 2024 Active Problems Problem Noted Date Diagnosed Date Mass of lower outer quadrant of right breast Failure to thrive in adult 12/19/2024 Abdominal aortic aneurysm (AAA) without rupture 12/19/2024 Adrenal incidentaloma 12/19/2024 Mass of lower lobe of left lung 12/19/2024 Chronic right shoulder pain 06/09/2024 Assessment & [...] referred for therapy and information given to granddaughter/AIR ANALYST. 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 Labs: CBC, Comprehensive Metabolic Panel, Lipid panel, [...] is to refer patientfor OP individual therapy. [facility] crisis line number provided. At this time Georgiana Earl meets criteria for Visit Diagnoses: Problem List Items Addressed This Visit Other Anxiety Housing problems Patient ready to address current needs Yes Strengths include readiness to take action and awareness of the problem PLAN: 1. Follow up with [facility]: Recommended for follow-up: as needed 2. Patient goal is to feel less anxious and be connected with services 3. Behavioral Recommendations a. Referral for OP individual therapy b. Utilize coping mechanisms that works for her to decrease symptoms c. Contact [facility] crisis line if needed (information and number provided) Acute kidney injury superimposed on CKD ([facility]/HCC ) 11/14/2022 Acute pyelonephritis 11/14/2022 Anemia 11/14/2022 [...] is to refer patientfor OP individual therapy. [facility] crisis line number provided. At this time Georgiana Earl meets criteria for Visit Diagnoses: Problem List Items Addressed This Visit Other Anxiety Housing problems Patient ready to address current needs Yes Strengths include readiness to take action and awareness of the problem PLAN: 1. Follow up with [facility]: Recommended for follow-up: as needed 2. Patient goal is to feel less anxious and be connected with services 3. Behavioral Recommendations a. Referral for OP individual therapy b. Utilize coping mechanisms that works for her to decrease symptoms c. Contact [facility] crisis line if needed (information and [...] BP medication when she gets back to [place] today. -Seek medical attention if she has [...] organization. Date Type Department Care Team Description 02/05/[address] [facility] [address] [place] [address] Kianna Nunez MD 02/03/[address] [facility] [address] [place] [address] Lara Alanis MD Failure to thrive in adult 01/28/2025 Orders Only [facility] [address] [place] [address] Chacho Romero MD 01/27/2025 Telephone [facility] [address] [place] [address] Kianna Nunez MD 01/23/[address] [facility] [address] [place] [address] Kianna Nunez MD Referral 01/22/2025 2:30 PM EDT Office Visit [facility] [address] [place] [address] Kianna Nunez MD Mass of lower outer quadrant of right breast (Primary Dx); Dysuria 01/22/2025 Travel 01/14/[address] [facility] [address] [place] [address] Kianna Nunez MD chart prep 01/12/[address] [facility] [address] [place] [address] Kianna Nunez MD Durable Medical Equipment 01/07/[address] [facility] [address] [place] [address] Lara Alanis MD 01/07/[address] [facility] [address] [place] [address] Kianna Nunez MD 01/06/[address] [facility] [address] [place] [address] Lara Alanis MD Hyperlipidemia, unspecified hyperlipidemia type; Chronic heart failure, unspecified heart failure type (CMS/HCC); Gastroesophageal reflux disease, unspecified whether esophagitis present 01/05/[address] [facility] [address] [place] [address] Kianna Nunez MD No Show 12/31/2024 Results Follow-Up [facility] [address] [place] [address] Kianna Nunez MD Lipid Panel, Standard, TSH W/Reflex to FT4, Lactate Dehydrogenase (LD), Additional followed-up results: 5 12/30/2024 Telephone [facility] [address] [place] [address] Kianna Nunez MD restrictions for grand daughter 12/22/[address] [facility] [address] [place] [address] Kianna Nunez MD 12/19/2024 9:45 AM EDT Office Visit [facility] [address] [place] [address] Kianna Nunez MD Failure to thrive in adult (Primary Dx); Abdominal aortic aneurysm (AAA) without rupture, unspecified part (CMS/HCC); Adrenal incidentaloma (CMS/HCC); Mass of lower lobe of left lung; Chronic obstructive pulmonary disease, unspecified COPD type (CMS/HCC); Breast cancer screening by mammogram; Colon cancer screening; Encounter for immunization 12/19/2024 Travel 12/12/2024 Patient Outreach [facility] [address] [place] [address] Kianna Nunez MD Pre-visit Planning (Pre visit planning LVM ) 12/11/[address] [facility] [address] [place] [address] Kianna Nunez MD Pre-visit Planning 12/11/[address] [facility] [address] [place] [address] Kianna Nunez MD Pain 11/07/[address] [facility] [address] [place], [place] [phone] Steve Hairston MD from Last 3 Months Immunizations Immunization Administration Dates Next Due Hep B, adult 12/19/2024,02/02/2006 Influenza High-dose Quadriva lent Preservative Free 03/16/2023,02/20/2022,03/02/2021,05/17 [...] Sign Reading Time Taken Comments Blood Pressure 146/90 01/22/2025 1:49 PM EDT Pulse 84 01/22/2025 1:49 PM EDT Temperature 36.8 C (98.3 F) 01/22/2025 1:49 PM EDT Respiratory Rate 20 01/22/2025 1:49 PM EDT Oxygen Saturation 99% 01/22/2025 1:49 PM EDT Inhaled Oxygen Concentration - - Weight 41.7 kg (92 lb) 01/22/2025 1:49 PM EDT Height 152.4 cm (5') 01/22/2025 1:49 PM EDT Body Mass Index 17.97 01/22/2025 1:49 PM EDT Plan of Treatment Upcoming Encounters Date Type Department Care Team (Late st Contact Info) Description 03/30/2025 10:00 AM EDT Office Visit [facility] [address] [place] [address] Kianna Nunez MD [address] [place] [address] Health Maintenance Due Date Last Done Comments CT Colonography 1954 Colonoscopy 1954 Colorectal Cancer Screening 1954 Dental Oral Exam 1954 FIT DNA/Cologuard 1954 FIT 1954 FOBT 1954 Sigmoidoscopy 1954 RSV Patients and Patients Aged 60 years or older (1 - Risk 60-74 years 1-dose series) 2014 Mammogram 01/10/2021 01/10/2019, 12/24/2017 Dental Prophylaxis 07/26/2023 01/22/2023 Dental X-Ray: Bitewings 01/24/2024 01/22/2023 COVID-19 Vaccine ( season) 2025 04/09/2024, 08/22/2023, 03/02/2021, Additional history exists Influenza Vaccine (#1) 2025 , 03/16/2023, 02/20/2022, Additional history exists Hepatitis B Vaccines (3 of 3 - 19+ 3-dose series) 02/13/2025 12/19/2024, 02/02/2006 Alcohol/Substance Use Screening 04/09/2025 04/09/2024 SDOH Screening 11/04/2025 11/04/2024 DTaP/Tdap/Td Vaccines (2 - Td or Tdap) 12/13/2025 12/14/2015, 08/13/2006 Depression Screening 12/19/2025 12/19/2024, 12/20/19 Tobacco Screening 01/22/2026 01/22/2025 Dental X-Ray: Full Mouth 01/23/2026 01/22/2023 Lipid Panel 12/31/2029 12/31/2024, 12/11/2023, 08/21/2022, Additional history exists Pneumococcal Vaccine: 50+ Years Completed 07/03/2022, 10/11/2015, 08/10/2007 Zoster Vaccines Discontinued 07/03/2022, 06/06, 12/14/2015 Hepatitis C Screening Completed 05/09/2024 HIB Vaccines [...] MID THIGH Routine 01/27/2025 3:26 PM EDT CULTURE, URINE, ROUTINE Routine 01/22/2025 2:39 PM EDT Dysuria POCT URINALYSIS DIPSTICK Routine 01/22/2025 2:33 PM EDT Dysuria VITAMIN B12/FOLATE, SERUM PANEL Routine 12/31/2024 11:02 AM EDT Failure to thrive in adult FERRITIN Routine 12/31/2024 11:02 AM EDT Failure to thrive in adult IRON AND TOTAL IRON BINDING CAPACITY Routine 12/31/2024 11:02 AM EDT Failure to thrive in adult C-REACTIVE PROTEIN Routine 12/31/2024 11 :02 AM EDT Failure to thrive in adult SED RATE BY MODIFIED WESTERGREN Routine 12/31/2024 11:02 AM EDT Failure to thrive in adult LD Routine 12/31/2024 11:02 AM EDT Failure to thrive in adult RPR (MONITOR) W/REFL TITER Routine 12/31/2024 11:02 AM EDT Failure to thrive in adult TSH W/REFLEX TO FT4 Routine 12/31/2024 1 1:02 AM EDT Failure to thrive in adult LIPID PANEL, STANDARD Routine 12/31/2024 11:02 AM EDT Failure to thrive in adult HIV 1/2 ANTIGEN/ANTIBODY, FOURTH GENERATION W/RFL Routine 12/31/2024 11:02 AM EDT Memory deficit LYME DISEASE AB W/REFL TO BLOT (IGG, IGM) Routine 12/31/2024 11:02 AM EDT Memory deficit SYPHILIS SCREEN Routine 12/31/2024 11:02 AM EDT Memory deficit COMPREHENSIVE METABOLIC PANEL Routine 12/31/2024 11:02 AM EDT Memory deficit CBC WITH AUTO DIFFERENTIAL Routine 12/31/2024 11:02 AM EDT Memory deficit HEPATITIS C AB W/REFL TO HCV RNA, QN, PCR Routine 05/09/2024 2:01 PM EST Physical exam PROPHYLAXIS - ADULT Routine 01/22/2023 2 :00 PM EDT INTRAORAL - COMPLETE SERIES OF RADIOGRAPHIC IMAGES Routine 01/22/2023 2:00 PM EDT BI MAMMOGRAM SCREENING BILATERAL Routine 01/10/2019 1:40 PM EDT from Last 3 Months or Most Recently Relevant to Health Maintenance Results * PET/CT Bone Skull Base to Mid Thigh (01/27/2025 3:26 PM EDT) Anatomical Region Laterality Modality Body Computed Tomogra phy us Historical Provider MD NAIDU CT PROCEDURES Final R esult * Culture, Urine, Routine (01/22/2025 2:39 PM EDT) Urine Urine specimen obtained by clean catch procedure / Unknown 01/22/2025 2:39 PM EDT 01/22/2025 5:34 PM EDT Comment:[facility] Narrative [facility] - 01/24/2025 7:57 AM EDT Escherichia coli Quant > 100,000 cfu/mL Escherichia coli: Ampicillin >=32(R) Escherichia coli: Cefazolin (Urine) 8(S) Escherichia coli: Cefepime <=0.12(S) Escherichia coli: Ceftriaxone <=0.25(S) Escherichia coli: Ciprofloxacin >=4(R) Escherichia coli: Gentamicin <=1(S) Escherichia coli: Nitrofurantoin <=16(S) Escherichia coli: Trimethoprim/Sulfamethoxazole <=20(S) Specimen Source: Urine clean catch Result [facility] Kianna Nunez MD LAB MICROBIOLOGY - GENERAL OR DERABLES Final Result Performing Organization Address [facility] de Phone Number [facility] [address] [place] [phone] * (ABNORMAL) POCT urinalysis dipstick manually resulted (01/22/2025 2:33 PM EDT) Color, UA Yellow Clarity, UA Clear Glucose, UA Negative Bilirubin, UA Negative Ketones, UA Negative Spec Grav, UA 1.015 Blood, UA Negative Negative, None Detected pH, UA 6.0 Protein, UA 1+ 70+ Comment:30 mg/dL Urobilinogen, UA 0.2 Leukocytes, UA Few 15(A) Negative, Rare, Trace Comment:small Nitrite, UA Positive(A) Negative, None Detected Appearance, UA clear QC Media Lot # Comment:[id number] Lot# Expiration Date Comment:03/03/2025 Urine 01/22/2025 2:33 PM EDT Result [facility] Kianna Nunez MD POINT OF CARE TEST ENTER/EDIT ORDERABLES Final Result * Syphilis Screen (12/31/2024 11:02 AM EDT) Syphilis Screen Nonreactive Nonreactive [facility] Blood 12/31/2024 11:0 2 AM EDT 12/31/2024 1:19 PM EDT Result [facility] Kianna Nunez MD LAB BLOOD ORDERABLES Final Re sult Performing Organization Address [facility]/ZIP Co de Phone Number [facility] [address] [place] [phone] * Vitamin B12 (Cobalamin) and Folate Panel, Serum (12/31/2024 11:02 AM EDT) [facility] Vitamin B12 388 200 - 900 pg/mL [facility] Comment:NORMAL 200-900 PG/ML INDETERMINATE 160-199 PG/ML DEFICIENT < 160 PG/ML Folate 13.7 > or = 4.0 ng/mL [facility] Comment:Reference Values:> o r = 4.0 ng/mL< 4.0 ng/mL suggests folate deficiency Methotrexate, aminopterin and folinic acid(leucovorin) are chemotherapeutic agents whose molecularstructures are similar to folate; therefore, the Architectfolate assay cannot be used for patients using these drugs. Blood Venous blood specimen / Unknown 12/31/2024 11:02 AM EDT 12/31/2024 1:19 PM EDT Kianna Nunez MD LAB BLOOD ORDERABLES Final Re sult Performing Organization Address [facility]/ZIP Co de Phone Number [facility] [address] [place] [phone] * TSH W/Reflex to FT4 (12/31/2024 11:02 AM EDT) [facility] TSH reflex Free T4 0.61 0.32 - 4.0 uIU/mL [facility] Blood Venous blood specimen / Unknown 12/31/2024 11:02 AM EDT 12/31/2024 1:19 PM EDT Kianna Nunez MD LAB BLOOD ORDERABLES Final Re sult Performing Organization Address City/[facility]/ZIP Co de Phone Number [facility] [address] [place] [phone] * Lyme Disease Ab with Reflex to Blot (IgG, IgM) (12/31/2024 11:02 AM EDT) [facility] Lyme Antibody Screen <0.90 index [facility] Comment:Index Interpretation ----- < 0.90 Negative 0.90-1.09 Equivocal > 1.09 PositiveAs recommended by the Food and Drug Administration(FDA), all samples with positive or equivocalresults in a Borrelia burgdorferi antibody screenwill be tested using a blot method. Positive orequivocal screening test results should not beinterpreted as truly positive until verified as suchusing a supplemental assay (e.g., B. burgdorferi blot).The screening test and/or blot for B. burgdorferiantibodies may be falsely negative in early stagesof Lyme disease, including the period when erythemamigrans is apparent.THIS TEST WAS PERFORMED AT:[employer] [place] [id number] MCLAUGHLIN MD Lyme Blot TNP [facility] 12/31/2024 11:0 2 AM EDT 12/31/2024 1:19 PM EDT us Kianna Nunez MD LAB BLOOD ORDERABLES Final Re sult [facility] [address] [place] [phone] * (ABNORMAL) CBC auto differential (12/31/2024 11:02 AM EDT) White Blood Count 5.5 4.8 - 10.8 X10*3/uL [facility] Red Blood Count 3.69(L) 4.20 - 5.50 X10*6/uL [facility] Hemoglobin 11.1(L) 12.0 - 16.0 g/dl [facility] Hematocrit 34.1(L) 37.0 - 47.0 % [facility] Mean Corpuscular Volume 92.4 80.0 - 98.0 fL [facility] Mean Corpuscular Hemoglobin 30.1 27.0 - 33.0 pg [facility] Mean Corpuscular HGB Conc 32.6 31.0 - 35.0 g/dl [facility] Red Cell Distribution Width 15.9 11.0 - 16.0 % [facility] Platelet Count 252 160 - 400 X10*3/uL [facility] Mean Platelet Volume 9.9 9.4 - 12.3 fL [facility] Neutrophils Percent Auto 59.2 45 - 73 % [facility] Imm Gran Pct Auto 0.2 0.0 - 0.4 % [facility] Lymphocytes Percent Auto 28.5 20 - 40 % [facility] Monocytes Percent Auto 7.4 2 - 11 % [facility] Eosinophils Percent Auto 3.4 0 - 4 % [facility] Basophils Percent Auto 1.3 0 - 2 % [facility] NRBC Pct Auto 0.0 0.0 - 0.2 /100WBC [facility] Neutrophils Absolute Auto 3.3 2.0 - 8.3 x10*3/uL [facility] Imm Gran Abs Auto 0.01 0.00 - 0.03 X10*3/uL [facility] Lymphocytes Absolute Auto 1.6 1.2 - 4.9 X10*3/uL [facility] Monocytes Absolute Auto 0.4 0.1 - 1.2 X10*3/uL [facility] Eosinophils Absolute Auto 0.2 0.0 - 0.4 X10*3/uL [facility] Basophils Absolute Auto 0.1 0.0 - 0.2 X10*3/uL [facility] NRBC Abs Auto 0.000 0.0 - 0.012 X10*3/uL [facility] Blood Venous blood specimen / Unknown 12/31/2024 11:02 AM EDT 12/31/2024 1:19 PM EDT us Kianna Nunez MD LAB BLOOD ORDERABLES Final Re sult [facility] [address] [place] [phone] * Iron And Total Iron Binding Capacity (12/31/2024 11:02 AM EDT) Iron 86 30 - 160 mcg/dL [facility] Total Iron Binding Capacity 274 228 - 428 mcg/dL [facility] Percent Iron Saturation 31 15 - 50 % [facility] Unsaturated Iron Binding 188 ug/dL [facility] Blood Venous blood specimen / Unknown 12/31/2024 11:02 AM EDT 12/31/2024 1:19 PM EDT us Kianna Nunez MD LAB BLOOD ORDERABLES Final Re sult Performing Organization Address [facility]/ZIP Co de Phone Number [facility] [address] [place] [phone] * RPR (Monitor) with Reflex to??Titer (12/31/2024 11:02 AM EDT) RPR (Monitor) w/Refl Titer NON-REACTI VE NON-REACT FAUSTINO [facility] Comment:THIS TEST WAS PERFOR MED AT:[employer] [place] [phone] MCLAUGHLIN MD Rapid Plasma Reagin Ab Titer TNP [facility] Blood Venous blood specimen / Unknown 12/31/2024 11:02 AM EDT 12/31/2024 1:19 PM EDT us Kianna Nunez MD LAB BLOOD ORDERABLES Final Re sult Performing Organization Address [facility] Co de Phone Number [facility] [address] [place] [phone] * HIV-1/2 Antigen and Antibodies, Fourth Generation, with Reflexes (12/31/2024 11:02 AM EDT) HIV AB/AG Nonreactive Nonreactive [facility] Comment:HIV-1 p24 Ag and/or HIV-1/HIV-2 Ab not detected.A test result that is nonreactive does not exclude thepossibility of exposure to or infection with HIV-1 and/orHIV-2. Nonreactive results in this assay for individualswith prior exposure to HIV-1 and/or HIV-2 may be due toantigen and antibody levels that are below the limit ofdetection of this assay.The [employer] HIV Ag/Ab Combo assay result andsupplemental assay results should be interpreted inconjunction with the patient's clinical presentation,history and other laboratory results. If the results areinconsistent with clinical evidence, additional testing issuggested to confirm the result. Blood Venous blood specimen / Unknown 12/31/2024 11:02 AM EDT 12/31/2024 1:18 PM EDT Kianna Nunez MD LAB BLOOD ORDERABLES Final Re sult Performing Organization Address [facility] Co de Phone Number [facility] [address] [place] [phone] * Sed Rate by Modified Guillermoergren (12/31/2024 11:02 AM EDT) Erythrocyte Sedimentation Rate 13 0 - 20 MM/HR [facility] Comment:Patients with polycy themia and many hemoglobin abnormalitiesmay have depressed sed rates whereas patients with anemiamay have elevated sed rates. Blood Venous blood specimen / Unknown 12/31/2024 11:02 AM EDT 12/31/2024 1:19 PM EDT Kianna Nunez MD LAB BLOOD ORDERABLES Final Re sult Performing Organization Address [facility] de Phone Number [facility] [address] [place] [address] [phone] * C-reactive Protein (12/31/2024 11:02 AM EDT) C Reactive Protein <0.04 < or = 0.50 mg/dL [facility] Blood Venous blood specimen / Unknown 12/31/2024 11:02 AM EDT 12/31/2024 1:19 PM EDT Kianna Nunez MD LAB BLOOD ORDERABLES Final Re sult Performing Organization Address [facility] Co de Phone Number [facility] [address] [place] [address] [phone] * (ABNORMAL) Lactate Dehydrogenase (LD) (12/31/2024 11:02 AM EDT) [facility] Lactate Dehydrogenase 257(H) 122 - 220 U/L [facility] Blood Venous blood specimen / Unknown 12/31/2024 11:02 AM EDT 12/31/2024 1:19 PM EDT us Kianna Nunez MD LAB BLOOD ORDERABLES Final Re sult Performing Organization Address [facility]/ZIP Co de Phone Number [facility] [address] [place] [address] [phone] * Ferritin (12/31/2024 11:02 AM EDT) [facility] Ferritin 48 10 - 250 ng/mL [facility] Blood Venous blood specimen / Unknown 12/31/2024 11:02 AM EDT 12/31/2024 1:19 PM EDT us Kianna Nunez MD LAB BLOOD ORDERABLES Final Re sult Performing Organization Address [facility] Co de Phone Number [facility] [address] [place] [address] [phone] * Lipid Panel, Standard (12/31/2024 11:02 AM EDT) [facility] Triglycerides 71 <150 mg/dL [facility] Comment:Desirable Triglyceri de: less than 150 mg/dLBorderline High Triglyceride 150-199 mg/dLHigh Triglyceride: 200-499 mg/dLVery High Triglyceride: greater than or equal to 5OO mg/dL Cholesterol 147 <200 mg/dL [facility] Comment:Desirable Cholestero l: less than 200 mg/dLBorderline High Cholesterol: 200-239 mg/dLHigh Cholesterol: greater than 239 mg/dL LDL Cholesterol Calculated 64 <100 mg/dL [facility] Comment:Desirable LDL: less than 100 mg/dLNear Optimal/Above Optimal LDL: 110- 129 mg/dLBorderline High LDL: 130-159 mg/dLHigh LDL: 160-189 mg/dLVery High LDL: greater than or equal to 190 mg/dL HDL Cholesterol 69 >40 mg/dL [facility] Comment:Desirable HDL: great er than 40 mg/dL Note: This HDL assay may give artificially low results in patients with liver disease. Blood Venous blood specimen / Unknown 12/31/2024 11:02 AM EDT 12/31/2024 1:19 PM EDT us Kianna Nunez MD LAB BLOOD ORDERABLES Final Re sult [facility] [address] [place] [phone] * (ABNORMAL) Comprehensive Metabolic Panel (12/31/2024 11:02 AM EDT) Sodium 145 135 - 145 mmol/L [facility] Potassium 3.9 3.3 - 5.1 mmol/L [facility] Chloride 112(H) 96 - 108 mmol/L [facility] Carbon Dioxide 24 22 - 29 mmol/L [facility] Anion Gap 13 12 - 20 [facility] Urea Nitrogen (BUN) 38(H) 9 - 16 mg/dL [facility] Creatinine, Serum 2.84(H) 0.5 - 1.4 mg/dL [facility] Estimated Glomerular Filt Rate 16 [facility] Comment:Chronic Kidney Disea se: Estimated GFR < 60 mL/min/1.85w8Lepztv Kidney Disease: Estimated GFR < 15 mL/min/1.73m2 Glucose 96 60 - 115 mg/dL [facility] Calcium 9.2 8.4 - 10.2 mg/dL [facility] Bilirubin, Total 0.5 0.0 - 1.0 mg/dL [facility] Aspartate Amino Transferase 23 5 - 31 U/L [facility] Alanine Aminotransferase 14 0 - 31 U/L [facility] Total Protein 7.6 6.5 - 8.0 g/dL [facility] Albumin Level 4.4 3.5 - 5.0 g/dL [facility] Alkaline Phosphatase 70 39 - 117 U/L [facility] Blood Venous blood specimen / Unknown 12/31/2024 11:02 AM EDT 12/31/2024 1:19 PM EDT Kianna Nunez MD LAB BLOOD ORDERABLES Final Re sult Performing Organization Address [facility] Co de Phone Number [facility] [address] [place] [address] [phone] * Hepatitis C Antibody with Reflex to HCV, RNA, Quantitative, Real-Time PCR (05/09/2024 2:01 PM EST) Hepatitis C Antibody Nonreactive Nonreactive [facility] Comment:Antibodies to HCV no t detected; does not exclude early acuteHCV infection. Blood Venous blood specimen / Unknown 05/09/2024 2:01 PM EST 05/09/2024 3:54 PM EST Kianna Nunez MD LAB BLOOD ORDERABLES Final Re sult Performing Organization Address [facility] de Phone Number [facility] [address] [place] [address] [phone] * DIGITAL BILATERAL SCREEN 1 (01/10/2019 [...] DIGITAL BILATERAL SCREEN 1 us Jose Syed TUBER OPERATOR IMG BI PROCEDURES Final Result from Last 3 Months or Most Recently Relevant to Health Maintenance Insurance [facility] [place] [employer] Care Teams Gear Hobber Set Up Operator Relationship Specialty Start Date End Date Kianna Nunez MD [address] [place] [address] PCP - General Family Medicine 02/02/20 Kleber Liu MD Telecommunicator Supervisor 06/04/04 Anaya Parikh OD Optometry 04/09/24 Dorian Edouard Nuclear Plant Construction Worker 06/04/04 [place] [facility] Train Gate Attendant 04/09/24
--- OUTSIDE RECORDS SUMMARY | 2025-02-05 13:26 | XMS_ITS | Encounter Summary ---
Author Organization [facility] Address [address] 7t [place] [address] Care Team Providers Care Polysomnography Technologist Name Role Phone Kianna Nunez MD Primary Care Provider [phone] Reason for Visit * Reason Comments Med Refill Encounter Details Date Type Department Care Team (Late Contact Info) Description 02/20/2023 Refill [facility] MED & PEDS [address] [place], [place] [phone] Kianna Nunez MD [address] [place], [place] [phone] Primary hypertension Social History Tobacco Use Types [...] Upcoming Encounters Date Type Department Care Team ([facility] Contact Info) Description 03/30/2025 10:00 AM EDT Office Visit [facility] MED & PEDS [address] [place], [place] [phone] Kianna Nunez MD [address] [place], [place] [phone] documented as of this encounter Visit Diagnoses Diagnosis Primary hypertension Unspecified essential hypertension documented in this encounter Care Teams Polysomnography Technologist Relationship Specialty Start Date End Date Kianna Nunez MD [address] [place] [address] PCP - General Family Medicine 02/02/20 Kleber Liu MD Mink Slicer 06/04/04 Anaya Parikh OD Optometry 04/09/24 Dorian Edouard Exchange Architect 06/04/04 [employer] [facility] [employer] Exhibit Designer 04/09/24 documented as of this encounter
== END 2025-02-05 12:59 | disposition home or self-care (01) ==
LOC: HO.HGI 11:46
PROVIDERS: PCP Family Medicine; Visit Provider Nurse Practitioner
DX: K58.2 Mixed irritable bowel syndrome (principal); K59.4 Anal spasm; Z95.810 Presence of automatic (implantable) cardiac defibrillator; I42.9 Cardiomyopathy, unspecified; N18.6 End stage renal disease; I50.20 Unspecified systolic (congestive) heart failure
CPT/HCPCS: 99203

== ENCOUNTER → 2025-02-05 11:45 | Outpatient (BNVA) | payer OTHER, SELFPAY | PROVIDERS: PCP Family Medicine; Visit Provider Nurse Practitioner | DX: Z01.818 Encounter for other preprocedural examination (principal); K59.4 Anal spasm; K58.2 Mixed irritable bowel syndrome; I42.9 Cardiomyopathy, unspecified; I11.0 Hypertensive heart disease with heart failure; I50.20 Unspecified systolic (congestive) heart failure; N17.9 Acute kidney failure, unspecified; N18.9 Chronic kidney disease, unspecified; R91.8 Other nonspecific abnormal finding of lung field; F14.20 Cocaine dependence, uncomplicated; Z95.810 Presence of automatic (implantable) cardiac defibrillator | CPT/HCPCS: 99202 ==

== ENCOUNTER 2025-02-12 12:59 | Outpatient (AMB) | payer OTHER, SELFPAY ==
[2025-02-12 13:02] VITALS: BP 136/76; PULSE 83; O2SAT 98; BMI 16.3
--- NOTE | 2025-02-12 13:02 | A.OFFVIS_ITS ---
Vital Signs 02/12/25 13:02 Height 5 ft 4 in Weight 94 lb 12.78 oz BMI 16.3 BP 136/76 Blood Pressure Location Rt brachial Position Sitting Pulse 83 Pulse Source Pulse Oximeter Pulse Oximetry (%) 98 Oxygen Delivery Method Room Air Intake Visit Reasons: Disorder of adrenal gland, unspecified Intake Note: NEW Patient presents here today to establish treatment for Disorder of adrenal gland, unspecified: Float Builder Required: Yes Float Builder Language: Hand Rug Cleaner Services: Float Builder Offered & Declined (DR [place] Speak Fluent Khmer) Allergies Iodinated Contrast Media (CONTRAST,IV) Allergy (Severe, Verified 02/05/25 12:00) ANGIOEDEMA Medication List - Last Reconciled 02/12/25 by Cj Dixon MD ascorbic acid (vitamin C) 250 mg PO BID atorvastatin 40 mg PO BEDTIME calcium carbonate-vitamin D3 600 mg-5 mcg (200 unit) (Calcium 600 + D(3)) 1 tab PO BID carvedilol 37.5 mg (1.5 x 25 mg) PO BID 90 days dexamethasone 1 mg PO ONCE docusate sodium 100 mg PO BID donepezil 5 mg PO DAILY ferrous gluconate 324 mg PO Q OTHER DAY fluoxetine 20 mg PO DAILY 30 days hydralazine 25 mg PO TID hydroxyzine pamoate 25 mg PO Q8H PRN imipramine HCl 50 mg PO BEDTIME isosorbide mononitrate ER 30 mg PO QAM pantoprazole 40 mg PO DAILY sennosides (senna) 17.2 mg PO BEDTIME PRN torsemide 40 mg PO QAM umeclidinium-vilanterol 62.5-25 mcg/actuation (Anoro Ellipta) 1 inh inhalation DAILY HPI Comments Details: 69 years all female with past medical history of coronary artery disease status post ICD, AAA, heart failure with reduced ejection fraction, adrenal nodule, substance use disorder, seen in the office for evaluation of adrenal nodule. The patient reports experiencing significant abdominal and anal pain with the presence of blood. 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 The patient reports weight loss over the past 2 to 3 months, along with fatigue, headaches, and blurred vision. She was incidentally found to have nodules on the left adrenal gland, which have slightly increased in size since the last imaging she had. She denies increased thirst, hypertension, increased appetite. [facility] Medical History Acute pyelonephritis E coli bacteremia Rectal candidiasis Urinary tract infection UTI (urinary tract infection) Cocaine use disorder Cocaine use disorder in remission MDD (major depressive disorder), recurrent severe, without psychosis Hx of sepsis History of asthma Hyperlipidemia HTN (hypertension) Cardiomyopathy ICD (implantable cardioverter-defibrillator) in place CAD (coronary artery disease) Chronic heart failure with reduced ejection fraction and diastolic dysfunction GERD (gastroesophageal reflux disease) Surgical History (Updated 02/12/25 @ 13:11 by Destiny Monet Teagan) History of surgery Hx of cystoscopy H/O hemorrhoidectomy Stented coronary artery Hx of colonoscopy Family History Father Diabetes HTN (hypertension) Mother Diabetes HTN (hypertension) Sister Throat cancer Family/Other Colon cancer Social History Household Members: None Housing: Apartment Are you a primary transitional care manager to a significant other at home: No Do you presently have visiting nurse or other home services: No Unable to assess alcohol history related to: Unable to respond Alcohol intake: never Comment: sleeping Patient Tobacco Use Status: Current everyday Tobacco user Tobacco use type: Cigarette Cigarette Packs Per Day: 2 Cigarettes Per Day: 40.0 Years Smoked: 38 e-Cigarette/Vaping Use: Never Used Second Hand Smoke Exposure: Yes Substance Use Type: Marijuana Advance Directives Date on File: 04/26/21 service: No Current occupational status: unemployed and disabled Sexual orientation: Straight/Heterosexual Physical Exam Exam Exam: General: Alert, well-nourished, no acute distress. Thin looking Neck: Supple, no thyromegaly Cardiac:Regular rate and rhythm, no murmurs. no edema. Lungs: Clear to auscultation bilaterally. Abdomen: Soft, non-tender, no organomegaly. No violaceous striae Extremities: No ulcers, lesions, or edema Neuro: Alert, oriented. Cranial nerves intact. sensation normal to monofilament testing. Skin: Warm, dry, intact. No rashes or ulcers. Vital Signs: Last Vital Signs Pulse 83 02/12/25 13:02 BP 136/76 02/12/25 13:02 Pulse Ox 98 02/12/25 13:02 Oxygen Delivery Method Room Air 02/12/25 13:02 BMI result Body Mass Index 16.3 Results Reviewed Results Reviewed: Labs reviewed corresponding to December and October of 2024 in the ranges shown below - Sodium: High (146-145) - Potassium: Normal (3.4-3.9) - Creatinine: Elevated (2.48-2.84) - Blood glucose: Normal (95-96) She was also noted to have normal blood pressure during our visit Most recent CT abdomen 10/28/2024 order for abdominal pain, showed further enlargement of a left adrenal mass which now measures 2.4 x 2.5 cm in size (previously 1.9 x 1.8 cm). This measures 15 HU in density and is indeterminate for adenoma. There is a 2nd adrenal mass on the left which is new measuring 2.0 x 1.3 cm. This measures 12 HU in density. Metastatic disease not excluded. She does have 2.0 cm masslike density in the left lung base. Assessment & Plan Assessment & Plan (1) Adrenal nodule: Code(s): E27.9 - Disorder of adrenal gland, unspecified Category: Medical Plan Assessment - Adrenal gland nodules with potential for hormone overproduction or malignancy. Recommendations - Perform hormonal studies including dexamethasone suppression test and morning cortisol level. - would refrain from obtaining aldosterone and renin given that the patient has no history of hypertension and no evidence of persistent hypokalemia - Obtain plasma fractionated metanephrines and catecholamines - Contrast-enhanced abdominal study to evaluate adrenal gland nodules. - Follow-up consultation after the completion of all tests to discuss results and further management. Orders: Orders Dexamethasone 2 Days E27.9 - Disorder of adrenal gland, unspecified Cortisol Random 2 Days E27.9 - Disorder of adrenal gland, unspecified CT abdomen wo/w IV con Today E27.9 - Disorder of adrenal gland, unspecified Catecholamines, Frac., Plasma 2 Days E27.9 - Disorder of adrenal gland, unspecified Basic Metabolic Panel 2 Days E27.9 - Disorder of adrenal gland, unspecified Metanephrines, Plasma 2 Days E27.9 - Disorder of adrenal gland, unspecified Saliva Cortisol 2 Days E27.9 - Disorder of adrenal gland, unspecified Medications: New dexamethasone 1 mg PO ONCE 1 tab 0RF E27.9 - Disorder of adrenal gland, unspecified Patient Instructions: Instrucciones para la Prueba de Supresi?n con Dexametasona ?Para qu? sirve esta prueba? Esta prueba ayuda a evaluar c?mo responde koch cuerpo a la dexametasona, un medicamento que suprime la producci?n de cortisol. Preparaci?n: * Informe a koch m?dico sobre todos los medicamentos que est? tomando, ya que algunos pueden interferir con la prueba. * No suspenda mickey?n medicamento sin indicaci?n m?dica. Indicaciones: [place] 1 tableta de dexametasona de 1 mg por v?a oral a las 11:00 p.m. (23:00 horas) la noche anterior al an?lisis de selena.No coma ni gwen nada, excepto agua, despu?s de la medianoche.Acuda al laboratorio a la ma?gabriella siguiente, entre las 7:00 y 9:00 a.m., para que le extraigan yovani muestra de selena.Lleve consigo esta hoja de instrucciones. Notas importantes: * No olvide aimee la dexametasona exactamente a la hora indicada. * Si olvida aimee la tableta, informe al laboratorio antes de la extracci?n de selena. Instrucciones para la Recolecci?n de Cortisol Salival a Medianoche ?Para qu? sirve esta prueba? Esta prueba mide el nivel de cortisol en la saliva, especialmente ?til para el diagn?stico de trastornos hormonales. Preparaci?n: * No coma, gwen, fume ni se cepille los dientes nohemi al menos 30 minutos antes de la recolecci?n. * Evite el estr?s y la actividad f?pawan intensa la noche de la prueba. Indicaciones: Recoja la muestra de saliva exactamente a la medianoche (12:00 a.m.).Utilice el kit de recolecci?n proporcionado (tubo o dispositivo especial).Morteza el tubo y deje que la saliva fluya de forma natural hacia el recipiente, sin escupir con fuerza.Cierre van el tubo y col?quelo en el refrigerador hasta que lo lleve al laboratorio.Anote la hora exacta de la recolecci?n en la etiqueta del tubo. Notas importantes: * Si tiene dudas sobre el procedimiento, consulte con el personal del laboratorio antes de la recolecci?n. * Lleve la muestra al laboratorio lo antes posible, preferiblemente en la ma?gabriella siguiente. Coding Level of Care Code New Pt Level 4 (78395) Diagnoses Adrenal nodule E27.9
--- OUTSIDE RECORDS SUMMARY | 2025-02-12 17:03 | XMS_ITS | Encounter Summary ---
Author Organization [employer] [facility] Address [address] 7[address] [place] [address] Care Team Providers Care Kidney Trimmer Name Role Phone Kianna Nunez MD Primary Care Provider [phone] Reason for Visit * Reason Comments Med Refill Encounter Details Date Type Department Care Team (Late Contact Info) Description 02/20/2023 Refill [facility] MED & PEDS [address] [place], [place] [phone] Kianna Nunez MD [address] [place], [place] [phone] Primary hypertension Social History Tobacco Use Types [...] Upcoming Encounters Date Type Department Care Team ([facility] Contact Info) Description 03/30/2025 10:00 AM EDT Office Visit [facility] MED & PEDS [address] [place], [place] [phone] Kianna Nunez MD [address] [place], [place] [phone] 06/22/2025 1:00 PM EST Office Visit [facility] OPTOMETRY [address] [place], [place] [phone] Jenni Morales, OD [address] [place] [address] documented as of this encounter Visit Diagnoses Diagnosis Primary hypertension Unspecified essential hypertension documented in this encounter Care Teams Kidney Trimmer Relationship Specialty Start Date End Date Kianna Nunez MD [address] [place] [address] PCP - General Family Medicine 02/02/20 Kleber Liu MD House Worker General 06/04/04 Anaya Parikh OD Optometry 04/09/24 Dorina Edouard Auricular Therapist 06/04/04 [facility] Manager Cardiovascular 04/09/24 documented as of this encounter
--- OUTSIDE RECORDS SUMMARY | 2025-02-12 17:03 | XMS_ITS | Encounter Summary ---
Author Organization [employer] Address [address] [place] [address] Care Team Providers Care Gear Lapping Machine Operator Name Role Phone Kianna Nunez MD Primary Care Provider [phone] Reason for Visit * Reason Comments Med Refill Encounter Details Date Type Department Care Team ([facility] st Contact Info) Description 09/24/[address] [facility] CHC MED & PEDS [address] [place] [address] Kianna Nunez MD [address] [place] [address] Pain Social History Tobacco Use Types Packs/Day [...] Description 03/30/2025 10:00 AM EDT Office Visit [facility] CHC MED & PEDS [address] [place] [address] Kianna Nunez MD [address] [place] [address] 06/22/2025 1:00 PM EST Office Visit [facility] OPTOMETRY [address] [place] [address] Jenni Morales, OD [address] [place] [address] documented as of this encounter Visit Diagnoses Diagnosis Pain Generalized pain documented in this encounter Additional Health Concerns Assessment Noted Time PHQ-9 Depression Total Score: 18 024 10:34 AM EST documented as of this encounter Care Teams Gear Lapping Machine Operator Relationship Specialty Start Date End Date Kianna Nunez MD [address] [place] [phone] PCP - General Family Medicine 02/02/20 Kleber Liu MD Diamond Driller 06/04/04 Anaya Parikh OD Optometry 04/09/24 Dorian Edouard Tumbler Machine Operator 06/04/04 [facility] Translator/Interpreter 04/09/24 documented as of this encounter
--- OUTSIDE RECORDS SUMMARY | 2025-02-12 17:04 | XMS_ITS | Encounter Summary ---
Author Organization [employer] Address [address] [facility] 7t [place] [address] Care Team Providers Care Bpm Architect Name Role Phone Kianna Nunez MD Primary Care Provider [phone] Reason for Visit * Reason Onset Date Comments US BREAST ORDER 02/10/2025 Encounter Details Date Type Department Care Team (Late st Contact Info) Description 02/10/2025 Telephone [employer] Information Management [address] [place] [address] Kianna Nunez MD [address] [place] [address] US BREAST ORDER Social History Tobacco Use Types Packs/Day Years [...] encounter Miscellaneous Notes * Telephone Encounter - Mago Nunez - 02/10/2025 3:54 PM EDT Please see T/C from 01/27/25. documented in this encounter Plan of Treatment Upcoming Encounters Date Type Department Care Team (Late st Contact Info) Description 03/30/2025 10:00 AM EDT Office Visit [facility] CHC MED & PEDS [address] [place] [address] Kianna Nunez MD [address] [place] [address] 06/22/2025 1:00 PM EST Office Visit [facility] OPTOMETRY [address] [place] [address] Jenni Morales, RAMONA [address] [place] [address] documented as of this encounter Visit Diagnoses Not on filedocumented in this encounter Additional Health Concerns Assessment Noted Time PHQ-9 Depression Total Score: 7 12/20/19 25 9:35 AM EDT documented as of this encounter Care Teams Bpm Architect Relationship Specialty Start Date End Date Kianna Nunez MD [address] [place] [address] PCP - General Family Medicine 02/02/20 Kleber Liu MD Air Hole Driller 06/04/04 Anaya Parikh OD Optometry 04/09/24 Dorian Edouard Manager Income Tax 06/04/04 [facility] Emr Specialist 04/09/24 documented as of this encounter
--- OUTSIDE RECORDS SUMMARY | 2025-02-12 17:04 | XMS_ITS | Encounter Summary ---
Author Organization [employer] Address [address] [place] [address] Care Team Providers Care Product Design Specialist Name Role Phone Kianna Nunez MD Primary Care Provider [phone] Reason for Visit * Reason Onset Date Comments Nurse Triage 01/08/2024 Encounter Details Date Type Department Care Team (Late st Contact Info) Description 01/08/2024 Telephone [facility] MEDICINE [address] [place] [address] Kianna Nunez MD [address] [place], [place] [phone] Nurse Triage Social History Tobacco Use Types [...] with others, in a hotel, in a custodial, living outside on the street, on a [...] to speak for Pt. Pt only speaks senegalese. Pt has been having some rectal bleeding [...] ASK apt with Dr. Mcgowan, 01/16/24 @ [facility]. Insurance is verified as active prior to [...] 01/08/2024 2:20 PM EDT Triage call with [facility] [place] [id number]. Call to [phone] unable to get connection, callto [phone] unable to get connection. * Telephone Encounter - Ruba Hinson - 01/08/2024 2:09 PM EDT Symptoms: Body Aches, Urination Pain Outcome: Schedule an urgent appointment (within 1 hour) or talk to a nurse or provider soon Reason: Severe pain now The caller accepted this outcome Please contact at [phone] documented in this encounter Plan of Treatment Upcoming Encounters Date Type Department Care Team (Late st Contact Info) Description 03/30/2025 10:00 AM EDT Office Visit [facility] CHC MED & PEDS [address] [place] [address] Kianna Nunez MD [address] [place] [address] 06/22/2025 1:00 PM EST Office Visit [facility] OPTOMETRY [address] [place] [address] Jenni Morales, OD [address] [place] [address] documented as of this encounter Visit Diagnoses Not on filedocumented in this encounter Additional Health Concerns Assessment Noted Time PHQ-9 Depression Total Score: 0 05/01/20 23 2:20 PM EST documented as of this encounter Care Teams Product Design Specialist Relationship Specialty Start Date End Date Kianna Nunez MD [address] [place] [address] PCP - General Family Medicine 02/02/20 Kleber Liu MD Wax Specialist 06/04/04 Anaya Parikh OD Optometry 04/09/24 Dorian Edourad Banquet Bartender 06/04/04 [facility] Harbor Pilot 04/09/24 documented as of this encounter
--- OUTSIDE RECORDS SUMMARY | 2025-02-12 17:04 | XMS_ITS | Encounter Summary ---
Author Organization [employer] Address [address] [place] [address] Care Team Providers Care Page Designer Name Role Phone Kianna Nunez MD Primary Care Provider [phone] Reason for Visit * Reason Onset Date Comments Pre-op Exam 11/15/2023 Encounter Details Date Type Department Care Team ([facility] st Contact Info) Description 11/15/2023 Telephone [facility] MED & PEDS [address] [place], [place] [phone] Kianna Nunez MD [address] [place] [address] Pre-op Exam Social History Tobacco Use Types [...] no Surgeon's name: Dr. Agustin Facility name: [facility] Surgeon's office number: [phone] ext [phone] Surgeon's office fax number: [phone] Contact name (person you spoke with): Kelli Last office note from surgeon requested: Pre-Op notes documented in this encounter Plan of Treatment Upcoming Encounters Date Type Department Care Team (Late st Contact Info) Description 03/30/2025 10:00 AM EDT Office Visit [facility] MED [facility] PEDS [address] [place] [address] Kianna Nunez MD [address] [place] [address] 06/22/2025 1:00 PM EST Office Visit [facility] OPTOMETRY [address] [place] [address] Jenni Morales, OD [address] [place] [address] documented as of this encounter Visit Diagnoses Not on filedocumented in this encounter Additional Health Concerns Assessment Noted Time PHQ-9 Depression Total Score: 0 05/01/20 23 2:20 PM EST documented as of this encounter Care Teams Page Designer Relationship Specialty Start Date End Date Kianna Nunez MD [address] [place] [address] PCP - General Family Medicine 02/02/20 Kleber Liu MD [facility] Nurse Practitioner 06/04/04 Anaya Parikh OD Optometry 04/09/24 Dorian Edouard Him Assistant 06/04/04 [facility] [facility] Online Marketing Strategist 04/09/24 documented as of this encounter
--- OUTSIDE RECORDS SUMMARY | 2025-02-12 17:04 | XMS_ITS | Encounter Summary ---
Author Organization [employer] Address [address] [place] [address] Care Team Providers Care Pattern Ruler Name Role Phone Kianna Nunez MD Primary Care Provider [phone] Reason for Visit * Reason Onset Date Comments restrictions for grand daughter 12/30/2024 Encounter Details Date Type Department Care Team ([facility] st Contact Info) Description 12/30/2024 Telephone [facility] MEDICINE [address] [place] [address] Kianna Nunez MD [address] [place], [place] [phone] restrictions for grand daughter Social History Tobacco [...] permission and then telling her daughters in [place] that she is not coming to her appts. Upon review of patient chart, her appt on 01/05 has not been cancelled. However she states that her grand daughter Mendy Nye has cancelled appts in the past.She says she needs to keep this appt because her daughters are comin gin from [place] to meet her PCP and discuss medical concerns. She does not want her grand daughter Mendy Nye to have access toher information DR documented in this encounter Plan of Treatment Upcoming Encounters Date Type Department Care Team ([facility] st Contact Info) Description 03/30/2025 10:00 AM EDT Office Visit [facility] MED & PEDS [address] [place], [place] [phone] Kianna Nunez MD [address] [place], [place] [phone] 06/22/2025 1:00 PM EST Office Visit [facility] OPTOMETRY [address] [place], [place] [phone] Jenni Moralse, OD [address] [place] [address] documented as of this encounter Visit Diagnoses Not on filedocumented in this encounter Additional Health Concerns Assessment Noted Time PHQ-9 Depression Total Score: 7 12/20/19 25 9:35 AM EDT documented as of this encounter Care Teams Pattern Ruler Relationship Specialty Start Date End Date Kianna Nunez MD [address] [place] [address] PCP - General Family Medicine 02/02/20 Kleber Liu MD Stagecraft Professor 06/04/04 Anaya Parikh OD Optometry 04/09/24 Dorian Edouard Glove Sewer 06/04/04 [facility] Ophthalmic Technologist 04/09/24 documented as of this encounter
--- OUTSIDE RECORDS SUMMARY | 2025-02-12 17:04 | XMS_ITS | Encounter Summary ---
Author Organization [employer] Address [address] [facility] [facility] [address] [place] [address] Care Team Providers Care Day Care Supervisor Name Role Phone Kianna Nunez MD Primary Care Provider [phone] Encounter Details Date Type Department Care Team ([facility] Contact Info) Description 08/31/2022 Orders Only [facility] MED & PEDS [address] [place], [place] [phone] Timothy Ibrahim MD [address] [place], [place] [phone] Social History Tobacco Use Types Packs/Day Years [...] Upcoming Encounters Date Type Department Care Team ([facility] Contact Info) Description 03/30/2025 10:00 AM EDT Office Visit [facility] MED & PEDS [address] [place], [place] [phone] Kianna Nunez MD [address] [place], [place] [phone] 06/22/2025 1:00 PM EST Office Visit [facility] OPTOMETRY [address] [place], [place] [phone] Jenni Morales OD [address] [place] [address] documented as of this encounter Procedures Procedure Name Priority Date/Time Associated Diagnosis Comments CULTURE, URINE, ROUTINE Routine 01/05/2023 10:30 AM EDT documented in this encounter Results * Culture, Urine, Routine (01/05/2023 10:30 AM EDT) Urine specimen obtained by clean catch procedure / Unknown 01/05/2023 10:30 AM EDT 01/05/2023 2:58 PM EDT Comment:[facility] LABS - 01/07/2023 7:34 AM EDT Escherichia coli Quant > 100,000 cfu/mL Escherichia coli: Ampicillin >=32(R) Escherichia coli: Ceftriaxone <=0.25(S) Escherichia coli: Gentamicin <=1(S) Escherichia coli: Levofloxacin >=8(R) Escherichia coli: Nitrofurantoin <=16(S) Escherichia coli: Trimethoprim/Sulfamethoxazole <=20(S) Specimen Source: Urine clean catch us Kianna Nunez MD LAB MICROBIOLOGY - GENERAL OR DERABLES Final Result [facility] [address] [place] [phone] documented in this encounter Visit Diagnoses Not on filedocumented in this encounter Care Teams Day Care Supervisor Relationship Specialty Start Date End Date Kianna Nunez MD [address] [place] [phone] PCP - General Family Medicine 02/02/20 Kleber Liu MD Fire Investigation Manager 06/04/04 Anaya Parikh OD Optometry 04/09/24 Dorian Edouard Gun Perforator 06/04/04 [employer] [facility] Electrical Manufacturing Engineer 04/09/24 documented as of this encounter
--- OUTSIDE RECORDS SUMMARY | 2025-02-12 17:04 | XMS_ITS | Encounter Summary ---
Author Organization [employer] Address [address] [facility] [address] [place] [address] Care Team Providers Care Welder Plasma Arc Name Role Phone Kianna Nunez MD Primary Care Provider [phone] Encounter Details Date Type Department Care Team (Late st Contact Info) Description 01/28/2025 Orders Only [facility] [address] [place] [address] Provider, MD [place] Social History Tobacco Use [...] Description 03/30/2025 10:00 AM EDT Office Visit [facility] MED & PEDS [address] [place], [place] [phone] Kianna Nunez MD [address] [place], [place] [phone] 06/22/2025 1:00 PM EST Office Visit [facility] OPTOMETRY [address] [place] [address] Jenni Morales, OD [address] [place] [address] documented as of this encounter Procedures Procedure [...] documented as of this encounter Care Teams Welder Plasma Arc Relationship Specialty Start Date End Date Kianna Nunze MD [address] [place] [address] PCP - General Family Medicine 02/02/20 Kleber Liu MD Automotive Machinist 06/04/04 Anaya Parikh OD Optometry 04/09/24 Dorian Edouard Wharf Worker 06/04/04 [facility] [facility] Opticianry Teacher 04/09/24 documented as of this encounter
--- OUTSIDE RECORDS SUMMARY | 2025-02-12 17:04 | XMS_ITS | Clinical Summary ---
Author Organization [employer] Address [address] [facility] 7[address] [place] [address] Care Team Providers Care Litigation Docket Manager Name Role Phone Kianna Nunez MD Primary Care Provider [phone] Allergies Active Allergy Reactions Criticality Noted Date [...] EVENING, AND BEDTIME 90 tablet 2 02/06/20 25 Active lidocaine (Xylocaine) 5 % ointmentIndicatio ns:Rectal tenesmus,Anal fissure Apply topically if needed for mild pain. 60 g 01/30/20 24 025 mirtazapine (Remeron) 30 MG tabletIndications :Failure to thrive in adult TAKE 1 TABLET BY MOUTH AT BEDTIME 90 tablet 1 07/15/19 25 025 Discontinued hydrALAZINE (Apresoline) 25 MG tablet TAKE 1 TABLET BY MOUTH THREE TIMES DAILY IN THE MORNING, EVENING, AND BEDTIME 90 tablet 2 11/08/19 25 025 Discontinued sulfamethoxazole- trimethoprim (Bactrim DS) 800-160 MG tablet Take 1 tablet by mouth 2 times daily for 3 days. 6 tablet 01/23/20 25 025 Active Problems Problem Noted Date [...] referred for therapy and information given to granddaughter/GASTROENTEROLOGY TEACHER. Assessment & Plan (04/09/2024 11:16 AM EST): [...] and I will also send her to awake overnight monitor. Labs: CBC, Comprehensive Metabolic Panel, Lipid panel, [...] the problem PLAN: 1. Follow up with [facility]: Recommended for follow-up: as needed 2. Patient goal is to feel less anxious and be connected with services 3. Behavioral Recommendations a. Referral for OP individual therapy b. Utilize coping mechanisms that works for her to decrease symptoms c. Contact [facility] crisis line if needed (information and number provided) Acute kidney injury superimposed on CKD ([facility] ) 11/14/2022 Acute pyelonephritis 11/14/2022 Anemia 11/14/2022 [...] the problem PLAN: 1. Follow up with [facility]: Recommended for follow-up: as needed 2. Patient [...] BP medication when she gets back to [place] today. -Seek medical attention if she has [...] organization. Date Type Department Care Team Description 02/10/2025 [facility] Information [facility] [address] [place] [address] Kianna Nunez MD US BREAST ORDER 02/05/2025 Refill [facility] [address] [place] [address] Kianna Nunez MD 02/03/2025 Refill [facility] [address] [place] [address] Lara Alanis MD Failure to thrive in adult 01/28/2025 Orders Only [facility] [address] [place] [address] Chacho Romero MD 01/27/2025 [facility] [address] [place] [address] Kianna Nunez MD 01/23/2025 Telephone [facility] [address] [place] [address] Kianna Nunez MD Referral 01/22/2025 2:30 PM EDT Office Visit [facility] [address] [place] [address] Kianna Nunez MD Mass of lower outer quadrant of right breast (Primary Dx); Dysuria 01/22/2025 Travel 01/14/2025 Telephone [facility] [address] [place] [address] Kianna Nunez MD chart prep 01/12/2025 Telephone [facility] [address] [place] [address] Kianna Nunez MD Durable Medical Equipment 01/07/2025 Refill [facility] [address] [place] [address] Lara Alanis MD 01/07/2025 Refill [facility] [address] [place] [address] Kianna Nunez MD 01/06/2025 Refill [facility] [address] [place] [address] Lara Alanis MD Hyperlipidemia, unspecified hyperlipidemia type; Chronic heart failure, unspecified heart failure type (CMS/HCC); Gastroesophageal reflux disease, unspecified whether esophagitis present 01/05/2025 Telephone [facility] [address] [place] [address] Kianna Nunez MD No Show 12/31/2024 Results Follow-Up [facility] [address] [place] [address] Kianna Nunez MD Lipid Panel, Standard, TSH W/Reflex to FT4, Lactate Dehydrogenase (LD), Additional followed-up results: 5 12/30/2024 Telephone [facility] [address] [place] [address] Kianna Nunez MD restrictions for grand daughter 12/22/2024 Telephone [facility] [address] [place] [address] Kianna Nunez MD 12/19/2024 9:45 AM EDT Office Visit [facility] [address] [place] [address] Kianna Nunez MD Failure to thrive in adult (Primary Dx); Abdominal aortic aneurysm (AAA) without rupture, unspecified part (CMS/HCC); Adrenal incidentaloma (CMS/HCC); Mass of lower lobe of left lung; Chronic obstructive pulmonary disease, unspecified COPD type (CMS/HCC); Breast cancer screening by mammogram; Colon cancer screening; Encounter for immunization 12/19/2024 Travel 12/12/2024 Patient Outreach [facility] [address] [place] [address] Kianna Nunez MD Pre-visit Planning (Pre visit planning LVM ) 12/11/2024 Patient Outreach [facility] [address] [place] [address] Kianna Nunez MD Pre-visit Planning 12/11/2024 Refill [facility] [address] [place] [address] Kianna Nunez MD Pain from Last 3 Months Immunizations Immunization Administration [...] Description 03/30/2025 10:00 AM EDT Office Visit [facility] [address] [place] [address] Kianna Nunez MD [address] [place] [address] 06/22/2025 1:00 PM EST Office Visit [facility] OPTOMETRY [address] [place] [address] Tarka Jenni, OD [address] [place] [address] Health Maintenance Due Date Last Done Comments [...] Mouth 01/23/2026 01/22/2023 Lipid Panel 12/31/2029 12/31/2024, 11/2023, 08/21/2022, Additional history exists Pneumococcal Vaccine: 50+ [...] Region Laterality Modality Body Computed Tomogra phy Historical Provider MD NAIDU CT PROCEDURES Final R esult * Culture, Urine, Routine (01/22/2025 2:39 PM EDT) Urine Urine specimen obtained by clean catch procedure / Unknown 01/22/2025 2:39 PM EDT 01/22/2025 5:34 PM EDT Comment:UACC Narrative [facility] - 01/24/2025 7:57 AM EDT Escherichia coli Quant > 100,000 cfu/mL Escherichia coli: Ampicillin >=32(R) Escherichia coli: Cefazolin (Urine) 8(S) Escherichia coli: Cefepime <=0.12(S) Escherichia coli: Ceftriaxone <=0.25(S) Escherichia coli: Ciprofloxacin >=4(R) Escherichia coli: Gentamicin <=1(S) Escherichia coli: Nitrofurantoin <=16(S) Escherichia coli: Trimethoprim/Sulfamethoxazole <=20(S) Specimen Source: Urine clean catch Kianna Nunez MD LAB MICROBIOLOGY - GENERAL OR DERABLES Final Result [facility] [address] [place] [address] [phone] * (ABNORMAL) POCT urinalysis dipstick manually [...] Appearance, UA clear QC Media Lot # Comment:[id number] Lot# Expiration Date Comment:03/03/2025 Urine 01/22/2025 2:33 PM EDT Kianna Nunez MD POINT OF CARE TEST ENTER/EDIT ORDERABLES Final Result * Syphilis Screen (12/31/2024 11:02 AM EDT) Syphilis Screen Nonreactive Nonreactive [facility] Blood 12/31/2024 11:0 2 AM EDT 12/31/2024 1:19 PM EDT Kianna Nunez MD LAB BLOOD ORDERABLES Final Re sult Performing Organization Address [facility] Co de Phone Number [facility] [address] [place] [phone] * Vitamin B12 (Cobalamin) and Folate Panel, Serum (12/31/2024 11:02 AM EDT) Vitamin B12 388 200 - 900 pg/mL [facility] Comment:NORMAL 200-900 PG/ML INDETERMINATE 160-199 PG/ML DEFICIENT < 160 PG/ML Folate 13.7 > or = 4.0 ng/mL [facility] Comment:Reference Values:> o r = [...] ORDERABLES Final Re sult Performing Organization Address [facility] Co de Phone Number [facility] [address] [place] [phone] * TSH W/Reflex to FT4 (12/31/2024 11:02 AM EDT) Pathologist [facility] TSH reflex Free T4 0.61 0.32 - 4.0 uIU/mL [facility] Blood Venous blood specimen / Unknown 12/31/2024 11:02 AM EDT 12/31/2024 1:19 PM EDT Kianna Nunez MD LAB BLOOD ORDERABLES Final Re sult Performing Organization Address [facility] Co de Phone Number [facility] [address] [place] [phone] * Lyme Disease Ab with Reflex to Blot (IgG, IgM) (12/31/2024 11:02 AM EDT) [facility] Lyme Antibody Screen <0.90 index [facility] Comment:Index Interpretation ----- < 0.90 [...] when erythemamigrans is apparent.THIS TEST WAS PERFORMED AT:[facility] [place] [id number] MCLAUGHLIN MD Lyme Blot TNP [facility] 12/31/2024 11:0 2 AM EDT 12/31/2024 1:19 PM EDT Kianna Nunez MD LAB BLOOD ORDERABLES Final Re sult Performing Organization Address [facility]/ZIP Co de Phone Number [facility] [address] [place] [phone] * (ABNORMAL) CBC auto differential (12/31/2024 11:02 AM EDT) White Blood Count 5.5 4.8 - 10.8 X10*3/uL [facility] Red Blood Count 3.69(L) 4.20 - 5.50 X10*6/uL [facility] Hemoglobin 11.1(L) 12.0 - 16.0 g/dl [facility] Hematocrit 34.1(L) 37.0 - 47.0 % [facility] Mean Corpuscular Volume 92.4 80.0 - 98.0 fL [facility] Mean Corpuscular Hemoglobin 30.1 27.0 - 33.0 pg [facility] Mean Corpuscular HGB Conc 32.6 31.0 - 35.0 g/dl [facility] Red Cell Distribution Width 15.9 11.0 - 16.0 % [facility] Platelet Count 252 160 - 400 X10*3/uL [facility] Mean Platelet Volume 9.9 9.4 - 12.3 fL [facility] Neutrophils Percent Auto 59.2 45 - 73 % [facility] Imm Gran Pct Auto 0.2 0.0 - 0.4 % [facility] Lymphocytes Percent Auto 28.5 20 - 40 % [facility] Monocytes Percent Auto 7.4 2 - 11 % [facility] Eosinophils Percent Auto 3.4 0 - 4 % [facility] Basophils Percent Auto 1.3 0 - 2 % [facility] NRBC Pct Auto 0.0 0.0 - 0.2 /100WBC [facility] Neutrophils Absolute Auto 3.3 2.0 - 8.3 x10*3/uL [facility] Imm Gran Abs Auto 0.01 0.00 - 0.03 X10*3/uL [facility] Lymphocytes Absolute Auto 1.6 1.2 - 4.9 X10*3/uL [facility] Monocytes Absolute Auto 0.4 0.1 - 1.2 X10*3/uL [facility] Eosinophils Absolute Auto 0.2 0.0 - 0.4 X10*3/uL [facility] Basophils Absolute Auto 0.1 0.0 - 0.2 X10*3/uL [facility] NRBC Abs Auto 0.000 0.0 - 0.012 X10*3/uL [facility] Blood Venous blood specimen / Unknown 12/31/2024 11:02 AM EDT 12/31/2024 1:19 PM EDT Kianna Nunez MD LAB BLOOD ORDERABLES Final Re sult Performing Organization Address [facility] Co de Phone Number [facility] [address] [place] [phone] * Iron And Total Iron Binding Capacity (12/31/2024 11:02 AM EDT) Iron 86 30 - 160 mcg/dL [facility] Total Iron Binding Capacity 274 228 - 428 mcg/dL [facility] Percent Iron Saturation 31 15 - 50 % [facility] Unsaturated Iron Binding 188 ug/dL [facility] Blood Venous blood specimen / Unknown 12/31/2024 11:02 AM EDT 12/31/2024 1:19 PM EDT Kianna Nunez MD LAB BLOOD ORDERABLES Final Re sult Performing Organization Address [facility] de Phone Number [facility] [address] [place] [phone] * RPR (Monitor) with Reflex to??Titer (12/31/2024 11:02 AM EDT) RPR (Monitor) w/Refl Titer NON-REACTI VE NON-REACT FAUSTINO [facility] Comment:THIS TEST WAS PERFOR MED AT:[facility] [place] [phone] MCLAUGHLIN MD Rapid Plasma Reagin Ab Titer TNP [facility] Blood Venous blood specimen / Unknown 12/31/2024 11:02 AM EDT 12/31/2024 1:19 PM EDT Kianna Nunez MD LAB BLOOD ORDERABLES Final Re sult Performing Organization Address [facility] Co de Phone Number [facility] [address] [place] [phone] [phone] * HIV-1/2 Antigen and Antibodies, Fourth Generation, with Reflexes (12/31/2024 11:02 AM EDT) HIV AB/AG Nonreactive Nonreactive [facility] Comment:HIV-1 p24 Ag and/or HIV-1/HIV-2 Ab not detected.A test result that is nonreactive does not exclude thepossibility of exposure to or infection with HIV-1 and/orHIV-2. Nonreactive results in this assay for individualswith prior exposure to HIV-1 and/or HIV-2 may be due toantigen and antibody levels that are below the limit ofdetection of this assay.[employer] HIV Ag/Ab Combo assay result andsupplemental assay results should be interpreted inconjunction with the patient's clinical presentation,history and other laboratory results. If the results areinconsistent with clinical evidence, additional testing issuggested to confirm the result. Blood Venous blood specimen / Unknown 12/31/2024 11:02 AM EDT 12/31/2024 1:18 PM EDT Kianna Nunez MD LAB BLOOD ORDERABLES Final Re sult Performing Organization Address [facility]/ZIP Co de Phone Number [facility] [address] [place] [address] [phone] * Sed Rate by Sita Johns (12/31/2024 11:02 AM EDT) Erythrocyte Sedimentation Rate 13 0 - 20 MM/HR [facility] Comment:Patients with polycy themia and many hemoglobin abnormalitiesmay have depressed sed rates whereas patients with anemiamay have elevated sed rates. Blood Venous blood specimen / Unknown 12/31/2024 11:02 AM EDT 12/31/2024 1:19 PM EDT Kianna Nunez MD LAB BLOOD ORDERABLES Final Re sult Performing Organization Address [facility]/ZIP Co de Phone Number [facility] [address] [place] [phone] * C-reactive Protein (12/31/2024 11:02 AM EDT) C Reactive Protein <0.04 < or = 0.50 mg/dL [facility] Blood Venous blood specimen / Unknown 12/31/2024 11:02 AM EDT 12/31/2024 1:19 PM EDT Kianna Nunez MD LAB BLOOD ORDERABLES Final Re sult Performing Organization Address [facility] Co de Phone Number [facility] [address] [place] [phone] * (ABNORMAL) Lactate Dehydrogenase (LD) (12/31/2024 11:02 AM EDT) Lactate Dehydrogenase 257(H) 122 - 220 U/L [facility] Blood Venous blood specimen / Unknown 12/31/2024 11:02 AM EDT 12/31/2024 1:19 PM EDT Kianna Nunez MD LAB BLOOD ORDERABLES Final Re sult Performing Organization Address [facility] Co de Phone Number [facility] [address] [place] [phone] * Ferritin (12/31/2024 11:02 AM EDT) Ferritin 48 10 - 250 ng/mL [facility] Blood Venous blood specimen / Unknown 12/31/2024 11:02 AM EDT 12/31/2024 1:19 PM EDT us Kianna Nunez MD LAB BLOOD ORDERABLES Final Re sult Performing Organization Address [facility] Co de Phone Number [facility] [address] [place] [phone] [phone] * Lipid Panel, Standard (12/31/2024 11:02 AM EDT) Triglycerides 71 <150 mg/dL [facility] Comment:Desirable Triglyceri de: less than 150 mg/dLBorderline High Triglyceride 150-199 mg/dLHigh Triglyceride: 200-499 mg/dLVery High Triglyceride: greater than or equal to 5OO mg/dL Cholesterol 147 <200 mg/dL [facility] Comment:Desirable Cholestero l: less than 200 mg/dLBorderline High Cholesterol: 200-239 mg/dLHigh Cholesterol: greater than 239 mg/dL LDL Cholesterol Calculated 64 <100 mg/dL [facility] Comment:Desirable LDL: less than 100 mg/dLNear Optimal/Above Optimal LDL: 110- 129 mg/dLBorderline High LDL: 130-159 mg/dLHigh LDL: 160-189 mg/dLVery High LDL: greater than or equal to 190 mg/dL HDL Cholesterol 69 >40 mg/dL [facility] Comment:Desirable HDL: great er than 40 mg/dL Note: This HDL assay may give artificially low results in patients with liver disease. Blood Venous blood specimen / Unknown 12/31/2024 11:02 AM EDT 12/31/2024 1:19 PM EDT us Kianna Nunez MD LAB BLOOD ORDERABLES Final Re sult Performing Organization Address [facility]/ZIP Co de Phone Number [facility] [address] [place] [address] [phone] * (ABNORMAL) Comprehensive Metabolic Panel (12/31/2024 11:02 AM EDT) Sodium 145 135 - 145 mmol/L [facility] Potassium 3.9 3.3 - 5.1 mmol/L [facility] Chloride 112(H) 96 - 108 mmol/L [facility] Carbon Dioxide 24 22 - 29 mmol/L [facility] Anion Gap 13 12 - 20 [facility] Urea Nitrogen (BUN) 38(H) 9 - 16 mg/dL [facility] Creatinine, Serum 2.84(H) 0.5 - 1.4 mg/dL [facility] Estimated Glomerular Filt Rate 16 [facility] Comment:Chronic Kidney Disea se: Estimated GFR < 60 mL/min/1.30s8Vrcncr Kidney Disease: Estimated GFR < 15 mL/min/1.73m2 Glucose 96 60 - 115 mg/dL [facility] Calcium 9.2 8.4 - 10.2 mg/dL [facility] Bilirubin, Total 0.5 0.0 - 1.0 mg/dL [facility] Aspartate Amino Transferase 23 5 - 31 U/L [facility] Alanine Aminotransferase 14 0 - 31 U/L [facility] Total Protein 7.6 6.5 - 8.0 g/dL [facility] Albumin Level 4.4 3.5 - 5.0 g/dL [facility] Alkaline Phosphatase 70 39 - 117 U/L [facility] Blood Venous blood specimen / Unknown 12/31/2024 11:02 AM EDT 12/31/2024 1:19 PM EDT us Kianna Nunez MD LAB BLOOD ORDERABLES Final Re sult [facility] [address] [place] [phone] * Hepatitis C Antibody with Reflex to HCV, RNA, Quantitative, Real-Time PCR (05/09/2024 2:01 PM EST) Hepatitis C Antibody Nonreactive Nonreactive [facility] Comment:Antibodies to HCV no t detected; does not exclude early acuteHCV infection. Blood Venous blood specimen / Unknown 05/09/2024 2:01 PM EST 05/09/2024 3:54 PM EST us Kianna Nunez MD LAB BLOOD ORDERABLES Final Re sult [facility] [address] [place] [address] [phone] * DIGITAL BILATERAL SCREEN 1 (01/10/2019 [...] DIGITAL BILATERAL SCREEN 1 us Jose Syed PATCH SANDER IMG BI PROCEDURES Final Result from Last 3 Months or Most Recently Relevant to Health Maintenance Insurance [address] [place] [address] [facility] [address] [place] [id number] [place] [address] [id number] [place] [id number] Care Teams Litigation Docket Manager Relationship Specialty Start Date End Date Kianna Nunez MD [address] [place] [address] PCP - General Family Medicine 02/02/20 Kleber Liu MD Slide Forming Machine Operator 06/04/04 Anaya Parikh OD Optometry 04/09/24 Dorian Edouard Speech Correction Consultant 06/04/04 [employer] Technician 04/09/24
--- OUTSIDE RECORDS SUMMARY | 2025-02-12 17:04 | XMS_ITS | Encounter Summary ---
Author Organization [employer] Address [address] [place] [address] Care Team Providers Care Mold Operator Name Role Phone Kianna Nunez MD Primary Care Provider [phone] Reason for Visit * Reason Onset Date Comments insurance update 10/05/2022 Appointment 10/05/2022 Encounter Details Date Type Department Care Team ([facility] st Contact Info) Description 10/05/2022 Telephone [facility] [address] [place] [address] Felisha Burkett DDS insurance update; Appointment Social [...] - 10/05/2022 10:06 AM EDT Bartolo from [facility] called in stating that patient had appt a couple of days ago but was unable to be seen due to apparently having no insurance coverage. She does have coverage through [facility] benefit providers. The id number for the dental portion would be [id number]. Please update insurance info and contact patient for rescheduling DR documented in this encounter Plan of Treatment Upcoming Encounters Date Type Department Care Team (Late st Contact Info) Description 03/30/2025 10:00 AM EDT Office Visit [facility] [address] [place], [place] [phone] Kianna Nunez MD [address] [place] [address] 06/22/2025 1:00 PM EST Office Visit [facility] OPTOMETRY [address] [place] [address] Jenni Morales OD [address] [place] [address] documented as of this encounter Visit Diagnoses Not on filedocumented in this encounter Care Teams Mold Operator Relationship Specialty Start Date End Date Kianna Nunez MD [address] [place] [address] PCP - General Family Medicine 02/02/20 Kleber Liu MD District Captain 06/04/04 Anaya Parikh OD Optometry 04/09/24 Dorian Edouard Suede Cleaner 06/04/04 [employer] Seamstress 04/09/24 documented as of this encounter
== END 2025-02-12 13:54 | disposition home or self-care (01) ==
LOC: HO.ENCR 13:00
PROVIDERS: PCP Family Medicine; Visit Provider Student in an Organized Health Care Education/Training Program
DX: E27.9 Disorder of adrenal gland, unspecified (principal)
CPT/HCPCS: 99204

== ENCOUNTER → 2025-02-12 12:59 | Outpatient (BNVA) | payer OTHER, SELFPAY | PROVIDERS: PCP Family Medicine; Visit Provider Student in an Organized Health Care Education/Training Program | DX: R10.9 Unspecified abdominal pain (principal); E27.9 Disorder of adrenal gland, unspecified; R53.83 Other fatigue | CPT/HCPCS: 99202 ==

== ENCOUNTER → 2025-02-26 10:46 | Outpatient (REF) | payer OTHER, SELFPAY ==
--- NOTE | ~2025-02-26 | NM_ITS ---
EXAMINATION: NM KIDNEY FLOW FUNCTION WITH RX HISTORY: N13.30 - Unspecified hydronephrosis. TECHNIQUE: A renogram and renal scan were performed following the intravenous administration of 10 mCi technetium 99m-DTPA. Patient received 21 mg IV Lasix approximately 30 minutes after injection of the radiopharmaceutical. COMPARISON: Correlation is made with an unenhanced CT of the abdomen and pelvis dated 10/28/2024. FINDINGS: Blood flow to the kidneys appears symmetric. Normal uptake of the radiopharmaceutical is seen on the right. There is excretion into the collecting system, which does not appear significantly dilated on these images. Washout of the renal right pelvis is noted. On the left there is renal atrophy and poor excretion, although some function is noted. NM/NM renal flow w pharm int IMPRESSION: Atrophic left kidney with poor excretion. No definite obstruction on the right. Electronically signed by: Clayton Mcdonald MD 02/26/2025 01:32 PM EDT
== END ==
LOC: HO.NUCMED 10:46
PROVIDERS: PCP Family Medicine; Visit Provider Urology
DX: N13.30 Unspecified hydronephrosis (principal)
CPT/HCPCS: 78708; A9539; J1938

== ENCOUNTER → 2025-02-26 10:49 | Outpatient (BNV) | payer OTHER, SELFPAY | PROVIDERS: PCP Family Medicine; Visit Provider Radiology Diagnostic Radiology | DX: N13.30 Unspecified hydronephrosis (principal) | CPT/HCPCS: 78708 ==

== ENCOUNTER 2025-02-27 10:07 | Outpatient (AMB) | payer OTHER, SELFPAY ==
--- NOTE | 2025-02-27 10:19 | A.OFFVIS_ITS ---
Intake Visit Reasons: 6w/lasix renogram Intake Note: Patient is present for 6 wk follow up for hydronephrosis Urology Rx:VIT-C Blood Thinners:none Imaging completed: 02/26/25 Public Health Sanitarian Required: No Accompanied by: Self / Same As Patient Allergies Iodinated Contrast Media (CONTRAST,IV) Allergy (Severe, Verified 02/27/25 10:20) ANGIOEDEMA HPI Comments Details: Georgiana is a pleasant female. She is a patient of Dr. Nunez. She is seen for the following urologic conditions - hydronephrosis Accompanied by family members who are helping translate Patient previously evaluated in 2019 Follow-up Lasix renogram - Atrophic left kidney with poor excretion. No definite obstruction on the right Recommend referral to nephrology - chronic kidney disease P.r.n. urology Hydronephrosis Detected on imaging Renal ultrasound - No renal calculi are identified. There is mild right hydroureteronephrosis to the bladder. No obstructing calculus is identified. The left kidney is atrophic. There is a 0.8 cm hyperdense lesion at the upper pole. There is no left hydronephrosis Creatinine has been variable over the past number of years going as high as 3 04/24 2.1, 10/26 2.5 PFSH Medical History Acute pyelonephritis E coli bacteremia Rectal candidiasis Urinary tract infection UTI (urinary tract infection) Cocaine use disorder Cocaine use disorder in remission MDD (major depressive disorder), recurrent severe, without psychosis Hx of sepsis History of asthma Hyperlipidemia HTN (hypertension) Cardiomyopathy ICD (implantable cardioverter-defibrillator) in place CAD (coronary artery disease) Chronic heart failure with reduced ejection fraction and diastolic dysfunction GERD (gastroesophageal reflux disease) Surgical History (Updated 02/12/25 @ 13:11 by Destiny Monet Teagan) History of surgery Hx of cystoscopy H/O hemorrhoidectomy Stented coronary artery Hx of colonoscopy Family History Father Diabetes HTN (hypertension) Mother Diabetes HTN (hypertension) Sister Throat cancer Family/Other Colon cancer Social History Household Members: None Housing: Apartment Are you a primary emergency care attendant to a significant other at home: No Do you presently have visiting nurse or other home services: No Unable to assess alcohol history related to: Unable to respond Alcohol intake: never Comment: sleeping Patient Tobacco Use Status: Current everyday Tobacco user Tobacco use type: Cigarette Cigarette Packs Per Day: 2 Cigarettes Per Day: 40.0 Years Smoked: 38 e-Cigarette/Vaping Use: Never Used Second Hand Smoke Exposure: Yes Substance Use Type: Marijuana Advance Directives Date on File: 04/26/21 service: No Current occupational status: unemployed and disabled Sexual orientation: Straight/Heterosexual Review of Systems Const Denies chills and Denies fever(s) Card Reports no additional complaints and Denies syncope Resp Denies cough GI Denies abdominal pain and Denies heartburn Reports as per HPI and Denies change in libido Neuro Denies syncope Psych Denies change in libido Endo Denies change in libido Physical Exam Const General: cooperative, healthy appearing, comfortable and no acute distress Orientation/consciousness: patient oriented x3 HEENT Face and sinus: Yes normal facial exam Mouth: moist mucous membranes Neck Neck: Yes normal visual inspection, Yes full ROM and Yes trachea midline Chest Chest palpation & inspection: normal inspection of the chest Resp Effort & Inspection: normal respiratory effort, able to speak in complete sentences and no respiratory distress GI Inspection: Yes normal to inspection Back/Spine/Pelvis Cervical Spine: normal cervical lordosis Thoracic/Lumbar Spine: thoracic and lumbar spine normal to inspection Skin General skin exam: no rashes or lesions noted Neuro General: patient oriented x3, gait normal, tone normal and moves all extremities Extrem General: Yes normal to inspection and Yes capillary refill normal Assessment & Plan Assessment & Plan (1) Hydronephrosis: Code(s): N13.30 - Unspecified hydronephrosis Category: Medical Plan Paren urology Refer Nephrology Orders: Referrals Nephrology Referral N17.9 - Acute kidney failure, unspecified, N18.9 - Chronic kidney disease, unspecified Patient Instructions: This note is constructed using voice recognition software. While every effort has been made to ensure accuracy car chaser errors may have been included. Imaging studies, laboratory and physical exam results were discussed and reviewed in detail. No major barriers to patient understanding were identified. An opportunity to ask questions regarding the treatment plan was provided. All questions were answered. The patient expressed understanding and agreement with the above treatment plan. The patient is aware they should contact our office by phone for worsening of their current condition or the appearance of new urologic symptoms. Compliance is encouraged with any medications and followup testing that is ordered. It is a privilege to participate in the urologic care of your patient. If you have any questions or concerns regarding treatment for the above conditions, or other urologic issues, please do not hesitate to contact me. The office telephone contact is [phone]. Sincerely, Dr Paul Rose MD, [facility] - Urology Compassionate Specialist Care for the Genitourinary System Coding Level of Care Code Est Pt Level 3 (63111) Complex EM visit Add On G2211 Diagnoses Hydronephrosis N13.30
--- OUTSIDE RECORDS SUMMARY | 2025-02-27 11:22 | XMS_ITS | Encounter Summary ---
Author Organization [employer] Address [address] [place] [address] Care Team Providers Care Emergency Telecommunications Dispatcher Name Role Phone Kianna Nunez MD Primary Care Provider [phone] Reason for Visit * Reason Onset Date Comments Pre-op Exam 11/15/2023 Encounter Details Date Type Department Care Team ([facility] st Contact Info) Description 11/15/2023 Telephone [facility] MED & PEDS [address] [place], [place] [phone] Kianna Nunez MD [address] [place] [address] Pre-op Exam Social History Tobacco Use Types [...] others, in a hotel, in a senior care, living outside on the street, on a [...] no Surgeon's name: Dr. Agustin Facility name: [facility] Surgeon's office number: [phone] ext [phone] Surgeon's office fax number: [phone] Contact name (person you spoke with): Kelli Last office note from surgeon requested: Pre-Op notes documented in this encounter Plan of Treatment Upcoming Encounters Date Type Department Care Team (Late st Contact Info) Description 03/30/2025 10:00 AM EDT Office Visit [facility] MED & PEDS [address] [place] [address] Kianna Nunez MD [address] [place] [address] 06/29/2025 2:30 PM EST Office Visit [facility] OPTOMETRY [address] [place] [address] Jenni Morales, OD [address] [place] [address] documented as of this encounter Visit Diagnoses Not on filedocumented in this encounter Additional Health Concerns Assessment Noted Time PHQ-9 Depression Total Score: 0 05/01/20 23 2:20 PM EST documented as of this encounter Care Teams Emergency Telecommunications Dispatcher Relationship Specialty Start Date End Date Kianna Nunez MD [address] [place] [address] PCP - General Family Medicine 02/02/20 Kleber Liu MD Specialized Developer 06/04/04 Anaya Parikh OD Optometry 04/09/24 Dorian Edouard Licensed Sales Assistant 06/04/04 [facility] Youth Development Professional 04/09/24 documented as of this encounter
--- OUTSIDE RECORDS SUMMARY | 2025-02-27 11:22 | XMS_ITS | Encounter Summary ---
Author Organization [employer] Address [address] [place] [address] Care Team Providers Care Medical Detail Representative Name Role Phone Kianna Nunez MD Primary Care Provider [phone] Reason for Visit * Reason Onset Date Comments Nurse Triage 01/08/2024 Encounter Details Date Type Department Care Team (Late st Contact Info) Description 01/08/2024 Telephone [facility] MEDICINE [address] [place] [address] Kianna Nunez MD [address] [place], [place] [phone] Nurse Triage Social History Tobacco Use Types [...] with others, in a hotel, in a fdc, living outside on the street, on a [...] to speak for Pt. Pt only speaks [facility] [place]. Pt has been having some rectal bleeding [...] ASK apt with Dr. Mcgowan, 01/16/24 @ [facility]. Insurance is verified as active prior [...] 01/08/2024 2:20 PM EDT Triage call with [place] [id number]. Call to [phone] unable to get connection, callto [phone] unable to get connection. * Telephone Encounter - Ruba Hinson - 01/08/2024 2:09 PM EDT Symptoms: Body Aches, Urination Pain Outcome: Schedule an urgent appointment (within 1 hour) or talk to a nurse or provider soon Reason: Severe pain now The caller accepted this outcome Please contact at [phone] documented in this encounter Plan of Treatment Upcoming Encounters Date Type Department Care Team (Late st Contact Info) Description 03/30/2025 10:00 AM EDT Office Visit [facility] MED & PEDS [address] [place] [address] Kianna Nunez MD [address] [place] [address] 06/29/2025 2:30 PM EST Office Visit [facility] OPTOMETRY [address] [place] [address] Jenni Morales, OD [address] [place] [address] documented as of this encounter Visit Diagnoses Not on filedocumented in this encounter Additional Health Concerns Assessment Noted Time PHQ-9 Depression Total Score: 0 05/01/20 23 2:20 PM EST documented as of this encounter Care Teams Medical Detail Representative Relationship Specialty Start Date End Date Kianna Nunez MD [address] [place] [address] PCP - General Family Medicine 02/02/20 Kleber Liu MD Control Analyst 06/04/04 Anaya Parikh OD Optometry 04/09/24 Dorian Edouard Milliner Helper 06/04/04 [facility] Timber Girdler 04/09/24 documented as of this encounter
--- OUTSIDE RECORDS SUMMARY | 2025-02-27 11:22 | XMS_ITS | Clinical Summary ---
Author Organization [facility] Address [address] [place] [address] Phone Care Team Providers Care Paring Machine Operator Name Role Phone Kianna Nunez MD Primary Care Provider [phone] Encounters Date Type Department Care Team Description 01/27/2025 10:45 AM EDT - 01/27/2025 11:59 PM EDT Hospital Encounter [facility] PET Scan [address] [place] [address] Other nonspecific abnormal finding of [...] Signed Date: 01/28/2025 12:32 ET Workstation ID: [id number] Transcribed By: Self Edit Transcribed Date: 01/28/2025 [...] Signed Date: 01/28/2025 12:32 ET Workstation ID: [id number] Transcribed By: Self Edit Transcribed Date: 01/28/2025 12:23 ET Paul Andre MD IM NM PROCEDURES Final Result from [place] [address] [place] [id number] [facility] Care Teams Paring Machine Operator Relationship Specialty Start Date End Date Kianna Nunez MD [address] [place] [address] PCP - General 08/27/23
--- OUTSIDE RECORDS SUMMARY | 2025-02-27 11:22 | XMS_ITS | Encounter Summary ---
Author Organization [employer] Address [address] [facility] 7t [place] [address] Care Team Providers Care Transition Manager Name Role Phone Kianna Nunez MD Primary Care Provider Encounter Details Date Type Department Care Team (Late st Contact Info) Description 01/28/2025 Orders Only [facility] [address] [place] [address] Provider, MD Chacho Social History Tobacco Use [...] 10:00 AM EDT Office Visit [facility] CHC MED & PEDS [address] [place], [place] [phone] Kianna Nunez MD [address] [place] [address] 06/29/2025 2:30 PM EST Office Visit [facility] OPTOMETRY [address] [place] [address] Jenni Morales, OD [address] [place] [address] documented as of this encounter Procedures Procedure Name Priority Date/Time Associated Diagnosis Comments NM KIDNEY FLOW/FUNCTION W PHARMACOLOGICAL INTERVENTION Routine 02/26/2025 10:59 AM EDT PET/CT BONE SKULL BASE TO MID THIGH Routine 01/27/2025 3:26 PM EDT documented in this encounter Results * NM Kidney Flow/Function w/ Pharmacological Intervention (02/26/2025 10:59 AM EDT) Anatomical Region Laterality Modality Body Nuclear Medicine 02/26/2025 10:5 9 AM EDT Narrative 02/26/2025 1:35 PM EDT [address] [address] Nuclear Medicine Report Signed Patient: Georgiana Earl MR#: [id number] 29 : 1955 Acct:[id number] Age/Sex: 69 / F ADM Date: 02/26/25 Loc: [facility] Attending Dr: Paul Rose MD Ordering Physician: Paul Rose MD Date of Service: 02/26/25 Procedure(s): NM renal flow w pharm int Accession Number(s): [id number] cc: Paul Rose MD; Kianna Nunez MD Reason for Exam: N13.30 - Unspecified hydronephrosis EXAMINATION: NM KIDNEY FLOW FUNCTION WITH RX HISTORY: N13.30 - Unspecified hydronephrosis. TECHNIQUE: A renogram and renal scan were performed following the intravenous administration of 10 mCi technetium 99m-DTPA. Patient received 21 mg IV Lasix approximately 30 minutes after injection of the radiopharmaceutical. COMPARISON: Correlation is made with an unenhanced CT of the abdomen and pelvis dated 10/28/2024. FINDINGS: Blood flow to the kidneys appears symmetric. Normal uptake of the radiopharmaceutical is seen on the right. There is excretion into the collecting system, which does not appear significantly dilated on these images. Washout of the renal right pelvis is noted. On the left there is renal atrophy and poor excretion, although some function is noted. NM/NM renal flow w pharm int IMPRESSION: Atrophic left kidney with poor excretion. No definite obstruction on the right. Electronically signed by: Clayton Mcdonald MD 02/26/2025 01:32 PM EDT Dictated By: Clayton Mcdonald MD Signed By: <Electronically signed by Clayton Mcdonald MD in OV> 02/26/25 1332 DD/ 1059 TD/TT: 02/26/25 1230 Reach Truck Operator: Procedure Note Donotuseinterpreter, Image - 02/26/[address] [address] Nuclear Medicine Report Signed Patient: Georgiana EarlMR#: [id number] [birth year] : 1955cct:[id number] Age/Sex: 69 / FADM Date: 02/26/25 Loc: NEELIMA Attending Dr: Paul Rose MD Ordering Physician: Paul Rose MD Date of Service: 02/26/25 Procedure(s): NM renal flow w pharm int Accession Number(s): [id number] cc: Paul Rose MD; Kianna Nunez MD Reason for Exam: N13.30 - Unspecified hydronephrosis EXAMINATION: NM KIDNEY FLOW FUNCTION WITH RX HISTORY: N13.30 - Unspecified hydronephrosis. TECHNIQUE: A renogram and renal scan were performed following the intravenous administration of 10 mCi technetium 99m-DTPA. Patient received 21 mg IV Lasix approximately 30 minutes after injection of the radiopharmaceutical. COMPARISON: Correlation is made with an unenhanced CT of the abdomen and pelvis dated 10/28/2024. FINDINGS: Blood flow to the kidneys appears symmetric. Normal uptake of the radiopharmaceutical is seen on the right. There is excretion into the collecting system, which does not appear significantly dilated on these images. Washout of the renal right pelvis is noted. On the left there is renal atrophy and poor excretion, although some function is noted. NM/NM renal flow w pharm int IMPRESSION: Atrophic left kidney with poor excretion. No definite obstruction on the right. Electronically signed by: Clayton Mcdonald MD 02/26/2025 01:32 PM EDT RP Dictated By: Clayton Mcdonald MD Signed By: <Electronically signed by Clayton Mcdonald MD in OV> 02/26/25 1332 DD/ 1059 TD/TT: 02/26/25 1230 Reach Truck Operator: [facility] External Provider IM NM PROCEDURES Final Result * PET/CT Bone Skull Base to Mid [...] documented as of this encounter Care Teams Transition Manager Relationship Specialty Start Date End Date Kianna Nunez MD [address] [place] [address] PCP - General Family Medicine 02/02/20 Kleber Liu MD Weigh Boss 06/04/04 Anaya Parikh OD Optometry 04/09/24 Dorian Edouard Repairer Evaporator 06/04/04 [facility] Hydrodynamics Professor 04/09/24 documented as of this encounter
--- OUTSIDE RECORDS SUMMARY | 2025-02-27 11:22 | XMS_ITS | Encounter Summary ---
Author Organization [employer] Address [address] 7[address] [place] [address] Care Team Providers Care Salesforce Specialist Name Role Phone Kianna Nunez MD Primary Care Provider [phone] Reason for Visit * Reason Comments Med Refill Encounter Details Date Type Department Care Team ([facility] st Contact Info) Description 09/24/2024 Refill [facility] MED & PEDS [address] [place] [address] Kianna Nunez MD [address] [place] [address] Pain Social History Tobacco Use Types Packs/Day [...] Description 03/30/2025 10:00 AM EDT Office Visit [facility] MED & PEDS [address] [place] [address] Kianna Nunez MD [address] [place] [address] 06/29/2025 2:30 PM EST Office Visit [facility] OPTOMETRY [address] [place] [address] Jenni Morales, OD [address] [place] [address] documented as of this encounter Visit Diagnoses Diagnosis Pain Generalized pain documented in this encounter Additional Health Concerns Assessment Noted Time PHQ-9 Depression Total Score: 18 024 10:34 AM EST documented as of this encounter Care Teams Salesforce Specialist Relationship Specialty Start Date End Date Kianna Nunez MD [address] [place] [address] PCP - General Family Medicine 02/02/20 Kleber Liu MD Packaging Clerk 06/04/04 Anaya Parikh OD Optometry 04/09/24 Dorian Edouard System Manager 06/04/04 [facility] Leno Sewer 04/09/24 documented as of this encounter
--- OUTSIDE RECORDS SUMMARY | 2025-02-27 11:22 | XMS_ITS | Encounter Summary ---
Author Organization [employer] Address [address] [place] [address] Care Team Providers Care Sales Service Supervisor Name Role Phone Kianna Nunez MD Primary Care Provider [phone] Reason for Visit * Reason Onset Date Comments call back needed 02/20/2025 Encounter Details Date Type Department Care Team (Late st Contact Info) Description 02/20/2025 Telephone [facility] MEDICINE [address] [place] [address] Kianna Nunez MD [address] [place], [place] [phone] call back needed Social History Tobacco Use Types Packs/Day Years [...] your housing situation today? I have tor sing 02/15/[address] you li [...] encounter Miscellaneous Notes * Telephone Encounter - Jayjay Patel - 02/20/2025 4:50 PM EDT TC from [facility] with [facility] requesting a call back due to questions they have regarding patient. Questions: If patient has decisional capacity? Does the patient have a health care proxy? If yes, who is the proxy? Does the PCP believe patient needs a higher level of care? Does the PCP have any concerns regarding patient? Is the Edler compliant with medication and appointments ? Caller name : Varun ext [phone] documented in this encounter Plan of Treatment Upcoming Encounters Date Type Department Care Team (Late st Contact Info) Description 03/30/2025 10:00 AM EDT Office Visit [facility] CH[facility] MED & PEDS [address] [place] [address] Kianna Nunez MD [address] [place] [address] 06/29/2025 2:30 PM EST Office Visit [facility] OPTOMETRY [address] [place] [address] Jenni Morales, OD [address] [place] [address] documented as of this encounter Visit Diagnoses Not on filedocumented in this encounter Additional Health Concerns Assessment Noted Time PHQ-9 Depression Total Score: 7 12/20/19 25 9:35 AM EDT documented as of this encounter Care Teams Sales Service Supervisor Relationship Specialty Start Date End Date Kianna Nunez MD [address] [place] [address] PCP - General Family Medicine 02/02/20 Kleber Liu MD Front Desk Host 06/04/04 Anaya Parikh OD Optometry 04/09/24 Dorian Edouard Roller Print Tender 06/04/04 [facility] Floor Layer Apprentice 04/09/24 documented as of this encounter
--- OUTSIDE RECORDS SUMMARY | 2025-02-27 11:22 | XMS_ITS | Encounter Summary ---
Author Organization [facility] Address [address] 7t [place] [address] Care Team Providers Care Pc Network Technician Name Role Phone Kianna Nunez MD Primary Care Provider [phone] Reason for Visit * Reason Comments Med Refill Encounter Details Date Type Department Care Team (Late Contact Info) Description 02/20/2023 Refill [facility] MED & PEDS [address] [place], [place] [phone] Kianna Nunez MD [address] [place], [place] [phone] Primary hypertension Social History Tobacco Use Types [...] Upcoming Encounters Date Type Department Care Team ([facility] Contact Info) Description 03/30/2025 10:00 AM EDT Office Visit [facility] CH[facility] MED & PEDS [address] [place], [place] [phone] Kianna Nunez MD [address] [place], [place] [phone] 06/29/2025 2:30 PM EST Office Visit [facility] OPTOMETRY [address] [place], [place] [phone] Jenni Morales, OD [address] [place] [address] documented as of this encounter Visit Diagnoses Diagnosis Primary hypertension Unspecified essential hypertension documented in this encounter Care Teams Pc Network Technician Relationship Specialty Start Date End Date Kianna Nunez MD [address] [place] [phone] PCP - General Family Medicine 02/02/20 Kleber Liu MD Television Anchor 06/04/04 Anaya Parikh OD Optometry 04/09/24 Dorian Edouard Gang Punch Operator 06/04/04 [facility] Analyst 04/09/24 documented as of this encounter
--- OUTSIDE RECORDS SUMMARY | 2025-02-27 11:23 | XMS_ITS | Encounter Summary ---
Author Organization [employer] Address [address] [place] [address] Care Team Providers Care Inspector Insulation Name Role Phone Kianna Nunez MD Primary Care Provider [phone] Reason for Visit * Reason Onset Date Comments restrictions for grand daughter 12/30/2024 Encounter Details Date Type Department Care Team ([facility] st Contact Info) Description 12/30/2024 Telephone [facility] MEDICINE [address] [place] [address] Kianna Nunez MD [address] [place], [place] [phone] restrictions for grand daughter Social History Tobacco [...] is your housing situation today? I have otrjulito kraus 02/15/[address] [...] permission and then telling her daughters in [place] that she is not coming to her appts. Upon review of patient chart, her appt on 01/05 has not been cancelled. However she states that her grand daughter Mendy Nye has cancelled appts in the past.She says she needs to keep this appt because her daughters are comin gin from [place] to meet her PCP and discuss medical concerns. She does not want her grand daughter Mendy Nye to have access toher information DR documented in this encounter Plan of Treatment Upcoming Encounters Date Type Department Care Team ([facility] st Contact Info) Description 03/30/2025 10:00 AM EDT Office Visit [facility] MED & PEDS [address] [place], [place] [phone] Kianna Nunez MD [address] [place], [place] [phone] 06/29/2025 2:30 PM EST Office Visit [facility] OPT[facility] [address] [place], [place] [phone] Jenni Morales, OD [address] [place] [address] documented as of this encounter Visit Diagnoses Not on filedocumented in this encounter Additional Health Concerns Assessment Noted Time PHQ-9 Depression Total Score: 7 12/20/19 25 9:35 AM EDT documented as of this encounter Care Teams Inspector Insulation Relationship Specialty Start Date End Date Kianna Nunez MD [address] [place], [place] [phone] PCP - General Family Medicine 02/02/20 Kleber Liu MD Skull Splitter 06/04/04 Anaya Parikh OD Optometry 04/09/24 Dorian Edouard Microscopist 06/04/04 [facility] [employer] Qa Analyst 04/09/24 documented as of this encounter
--- OUTSIDE RECORDS SUMMARY | 2025-02-27 11:23 | XMS_ITS | Encounter Summary ---
Author Organization [employer] Address [address] [place] [address] Care Team Providers Care Sales Promotion Officer Name Role Phone Kianna Nunez MD Primary Care Provider [phone] Reason for Visit * Reason Onset Date Comments insurance update 10/05/2022 Appointment 10/05/2022 Encounter Details Date Type Department Care Team ([facility] st Contact Info) Description 10/05/2022 Telephone [facility] [address] [place] [address] Felisha Burkett DDS insurance update; Appointment Social [...] - 10/05/2022 10:06 AM EDT Bartolo from [facility] called in stating that patient had appt a couple of days ago but was unable to be seen due to apparently having no insurance coverage. She does have coverage through [facility] benefit providers. The id number for the dental portion would be [id number]. Please update insurance info and contact patient for rescheduling DR documented in this encounter Plan of Treatment Upcoming Encounters Date Type Department Care Team (Late st Contact Info) Description 03/30/2025 10:00 AM EDT Office Visit [facility] MED & PEDS [address] [place], [place] [phone] Kianna Nunez MD [address] [place] [address] 06/29/2025 2:30 PM EST Office Visit [facility] OPTOMETRY [address] [place] [address] Jenni Morales OD [address] [place] [address] documented as of this encounter Visit Diagnoses Not on filedocumented in this encounter Care Teams Sales Promotion Officer Relationship Specialty Start Date End Date Kianna Nunez MD [address] [place] [address] PCP - General Family Medicine 02/02/20 Kleber Liu MD Paper Cone Maker 06/04/04 Anaya Parikh OD Optometry 04/09/24 Dorian Edouard Market Development Manager 06/04/04 [employer] Master Automotive Technician 04/09/24 documented as of this encounter
--- OUTSIDE RECORDS SUMMARY | 2025-02-27 11:23 | XMS_ITS | Clinical Summary ---
Author Organization [employer] Address [address] [place] [address] Care Team Providers Care Environmental Emergencies Planner Name Role Phone Kianna Nunez MD Primary Care Provider [phone] Allergies Active Allergy Reactions Criticality Noted Date [...] 90 tablet 2 11/08/19 25 025 Discontinued Active Problems Problem Noted Date [...] referred for therapy and information given to granddaughter/LICENSED INSURANCE SALES AGENT. Assessment & Plan (04/09/2024 11:16 AM EST): [...] and I will also send her to varnishing unit tool setter. Labs: CBC, Comprehensive Metabolic Panel, Lipid panel, [...] is to refer patientfor OP individual therapy. [facility] crisis line number provided. At this time Georgiana Earl meets criteria for Visit Diagnoses: Problem List Items Addressed This Visit Other Anxiety Housing problems Patient ready to address current needs Yes Strengths include readiness to take action and awareness of the problem PLAN: 1. Follow up with [facility]: Recommended for follow-up: as needed 2. Patient goal is to feel less anxious and be connected with services 3. Behavioral Recommendations a. Referral for OP individual therapy b. Utilize coping mechanisms that works for her to decrease symptoms c. Contact [facility] crisis line if needed (information and number provided) Acute kidney injury superimposed on CKD ([facility] ) 11/14/2022 Acute pyelonephritis 11/14/2022 Anemia 11/14/2022 [...] is to refer patientfor OP individual therapy. [facility] crisis line number provided. At this time Georgiana Earl meets criteria for Visit Diagnoses: Problem List Items Addressed This Visit Other Anxiety Housing problems Patient ready to address current needs Yes Strengths include readiness to take action and awareness of the problem PLAN: 1. Follow up with [facility]: Recommended for follow-up: as needed 2. Patient goal is to feel less anxious and be connected with services 3. Behavioral Recommendations a. Referral for OP individual therapy b. Utilize coping mechanisms that works for her to decrease symptoms c. Contact [facility] crisis line if needed (information and number [...] BP medication when she gets back to [place] today. -Seek medical attention if she has concerns. -Medication reconciliation with pharmacy was done today. Asthma 11/06/2011 Nephrolithiasis 11/06/2011 Tobacco user 09/13/2011 Resolved Problems Problem Noted Date Diagnosed Date Resolved Date Physical exam 08/22/2023 04/09/2024 Encounter for health-related screening 05/01/2023 04/09/2024 Assessment & Plan (05/01/2023 2:24 PM EST): -Labs: HIV-1/2, Hep. C-Ab. Encounters Date Type Department Care Team Description 02/20/2025 Telephone [facility] [address] [place] [address] Kianna Nunez MD call back needed 02/10/2025 Telephone [facility] Information Management [address] [place] [address] Kianna Nunez MD US BREAST ORDER 02/05/2025 Refill [facility] MED [facility] PEDS [address] [place] [address] Kianna Nunez MD 02/03/2025 Refill [facility] PED[facility] [address] [place] [address] Lara Alanis MD Failure to thrive in adult 01/28/2025 Orders Only [facility] [address] [place] [address] Chacho Romero MD 01/27/2025 Telephone [facility] Information [facility] [address] [place] [address] Kianna Nunez MD 01/23/2025 Telephone [facility] [address] [place] [address] iKanna Nunez MD Referral 01/22/2025 2:30 PM EDT Office Visit [facility] [address] [place] [address] Kianna Nunez MD Mass of lower outer quadrant of right breast (Primary Dx); Dysuria 01/22/2025 Travel 01/14/2025 Telephone [facility] [address] [place] [address] Kianna Nunez MD chart prep 01/12/2025 Telephone [facility] [address] [place] [address] Kianna Nunez MD Durable Medical Equipment 01/07/2025 Refill [facility] [address] [place] [address] Lara Alanis MD 01/07/2025 Refill [facility] [address] [place] [address] Kianna Nunez MD 01/06/2025 Refill [facility] [address] [place] [address] Lara Alanis MD Hyperlipidemia, unspecified hyperlipidemia type; Chronic heart failure, unspecified heart failure type (CMS/HCC); Gastroesophageal reflux disease, unspecified whether esophagitis present 01/05/2025 Telephone [facility] [address] [place] [address] Kianna Nunez MD No Show 12/31/2024 Results Follow-Up [facility] P[facility] [address] [place] [address] Kianna Nunez MD Lipid Panel, Standard, TSH W/Reflex to FT4, Lactate Dehydrogenase (LD), Additional followed-up results: 5 12/30/2024 Telephone [facility] [address] [place] [phone] Kianna Nunez MD restrictions for grand daughter 12/22/2024 Telephone [facility] [address] [place] [address] Kianna Nunez MD 12/19/2024 9:45 AM EDT Office Visit [facility] [address] [place] [address] Kianna Nunez MD Failure to thrive in adult (Primary Dx); Abdominal aortic aneurysm (AAA) without rupture, unspecified part (CMS/HCC); Adrenal incidentaloma (CMS/HCC); Mass of lower lobe of left lung; Chronic obstructive pulmonary disease, unspecified COPD type (CMS/HCC); Breast cancer screening by mammogram; Colon cancer screening; Encounter for immunization 12/19/2024 Travel 12/12/2024 Patient Outreach [facility] [address] [place] [phone] Kianna Nunez MD Pre-visit Planning (Pre visit planning LVM ) 12/11/2024 Patient Outreach [facility] [address] [place] [address] Kianna Nunez MD Pre-visit Planning 12/11/2024 Refill [facility] [address] [place] [address] Kianna Nunez MD Pain from Last 3 [...] Description 03/30/2025 10:00 AM EDT Office Visit [facility] [address] [place] [address] Kianna Nunez MD [address] [place] [address] 06/29/2025 2:30 PM EST Office Visit [facility] OPTOMETRY [address] [place] [address] Jenni Morales, OD [address] [place] [address] Health Maintenance Due Date Last Done Comments [...] 3:26 PM EDT CULTURE, URINE, ROUTINE Routine 01/23/20 2:39 PM EDT Dysuria POCT URINALYSIS DIPSTICK [...] Recently Relevant to Health Maintenance Results * NM Kidney Flow/Function w/ Pharmacological Intervention (02/26/2025 10:59 AM EDT) Anatomical Region Laterality Modality Body Nuclear Medicine 02/26/2025 10:5 9 AM EDT Narrative 02/26/2025 1:35 PM EDT [place] [address] Nuclear Medicine Report Signed Patient: Georgiana Earl MR#: [id number] [birth year] : 1955 Acct:[id number] Age/Sex: 69 / F ADM Date: 02/26/25 Loc: [facility] Attending Dr: Paul Rose MD Ordering Physician: Paul Rose MD Date of Service: 02/26/25 Procedure(s): NM renal flow w pharm int Accession Number(s): [id number] cc: Paul Rose MD; Kianna Nunez MD [...] 02/26/25 1332 DD/ 1059 TD/TT: 02/26/25 1230 Roll Edge Machine Operator: Procedure Note Donotuseinterpreter, Image - 02/26/2025 [place] [address] Nuclear Medicine Report Signed Patient: Georgiana EarlMR#: [id number] 28 : 1955cct:[id number] Age/Sex: 69 / FADM Date: 02/26/25 Loc: [facility] Attending Dr: Paul Rose MD Ordering Physician: Paul Rose MD Date of Service: 02/26/25 Procedure(s): NM renal flow w pharm int Accession Number(s): [id number] cc: Paul Rose MD; Kianna Nunez MD [...] 02/26/25 1332 DD/ 1059 TD/TT: 02/26/25 1230 Roll Edge Machine Operator: [facility] External Provider IMG NM PROCEDURES Final Result * PET/CT Bone Skull Base to Mid Thigh (01/27/2025 3:26 PM EDT) Anatomical Region Laterality Modality Body Computed Tomogra phy Historical Provider IMG CT PROCEDURES Final R esult * Culture, Urine, Routine (01/22/2025 2:39 PM EDT) Urine Urine specimen obtained by clean catch procedure / Unknown 01/22/2025 2:39 PM EDT 01/22/2025 5:34 PM EDT Comment:UACC Narrative [facility] - 01/24/2025 7:57 AM EDT Escherichia coli Quant > 100,000 cfu/mL Escherichia coli: Ampicillin >=32(R) Escherichia coli: Cefazolin (Urine) 8(S) Escherichia coli: Cefepime <=0.12(S) Escherichia coli: Ceftriaxone <=0.25(S) Escherichia coli: Ciprofloxacin >=4(R) Escherichia coli: Gentamicin <=1(S) Escherichia coli: Nitrofurantoin <=16(S) Escherichia coli: Trimethoprim/Sulfamethoxazole <=20(S) Specimen Source: Urine clean catch Kianna Nunez MD LAB MICROBIOLOGY - GENERAL OR DERABLES Final Result [facility] [address] [place] [phone] * (ABNORMAL) POCT urinalysis dipstick manually [...] Appearance, UA clear QC Media Lot # Comment:[id number] Lot# Expiration Date Comment:03/03/2025 Urine 01/22/2025 2:33 PM EDT Kianna Nunez MD POINT OF CARE TEST ENTER/EDIT ORDERABLES Final Result * Syphilis Screen (12/31/2024 11:02 AM EDT) Pathologist [facility] Syphilis Screen Nonreactive Nonreactive [facility] Blood 12/31/2024 11:0 2 AM EDT 12/31/2024 1:19 PM EDT Kianna Nunez MD LAB BLOOD ORDERABLES Final Re sult [facility] [address] [place] [phone] * Vitamin B12 (Cobalamin) and Folate Panel, Serum (12/31/2024 11:02 AM EDT) Vitamin B12 388 200 - 900 pg/mL [facility] Comment:NORMAL 200-900 PG/ML INDETERMINATE 160-199 PG/ML DEFICIENT < 160 PG/ML Folate 13.7 > or = 4.0 ng/mL [facility] Comment:Reference Values:> o r = 4.0 [...] ORDERABLES Final Re sult Performing Organization Address City/[facility]/ZIP Co de Phone Number [facility] [address] [place] [phone] * TSH W/Reflex to FT4 (12/31/2024 11:02 AM EDT) TSH reflex Free T4 0.61 0.32 - 4.0 uIU/mL [facility] Blood Venous blood specimen / Unknown 12/31/2024 11:02 AM EDT 12/31/2024 1:19 PM EDT Kianna Nunez MD LAB BLOOD ORDERABLES Final Re sult Performing Organization Address [facility] Co de Phone Number [facility] [address] [place] [phone] * Lyme Disease Ab with Reflex to Blot (IgG, IgM) (12/31/2024 11:02 AM EDT) Pathologist [facility] Lyme Antibody Screen <0.90 index [facility] Comment:Index Interpretation ----- < 0.90 Negative [...] when erythemamigrans is apparent.THIS TEST WAS PERFORMED AT:[facility] [place] [id number] MCLAUGHLIN MD Lyme Blot TNP [facility] 12/31/2024 11:0 2 AM EDT 12/31/2024 1:19 PM EDT us Kianna Nunez MD LAB BLOOD ORDERABLES Final Re sult [facility] [address] [place] [address] [phone] * (ABNORMAL) CBC auto differential (12/31/2024 11:02 AM EDT) White Blood Count 5.5 4.8 - 10.8 X10*3/uL [facility] Red Blood Count 3.69(L) 4.20 - 5.50 X10*6/uL [facility] Hemoglobin 11.1(L) 12.0 - 16.0 g/dl [facility] Hematocrit 34.1(L) 37.0 - 47.0 % [facility] Mean Corpuscular Volume 92.4 80.0 - 98.0 fL [facility] Mean Corpuscular Hemoglobin 30.1 27.0 - 33.0 pg [facility] Mean Corpuscular HGB Conc 32.6 31.0 - 35.0 g/dl [facility] Red Cell Distribution Width 15.9 11.0 - 16.0 % [facility] Platelet Count 252 160 - 400 X10*3/uL [facility] Mean Platelet Volume 9.9 9.4 - 12.3 fL [facility] Neutrophils Percent Auto 59.2 45 - 73 % [facility] Imm Gran Pct Auto 0.2 0.0 - 0.4 % [facility] Lymphocytes Percent Auto 28.5 20 - 40 % [facility] Monocytes Percent Auto 7.4 2 - 11 % [facility] Eosinophils Percent Auto 3.4 0 - 4 % [facility] Basophils Percent Auto 1.3 0 - 2 % [facility] NRBC Pct Auto 0.0 0.0 - 0.2 /100WBC [facility] Neutrophils Absolute Auto 3.3 2.0 - 8.3 x10*3/uL [facility] Imm Gran Abs Auto 0.01 0.00 - 0.03 X10*3/uL [facility] Lymphocytes Absolute Auto 1.6 1.2 - 4.9 X10*3/uL [facility] Monocytes Absolute Auto 0.4 0.1 - 1.2 X10*3/uL [facility] Eosinophils Absolute Auto 0.2 0.0 - 0.4 X10*3/uL [facility] Basophils Absolute Auto 0.1 0.0 - 0.2 X10*3/uL [facility] NRBC Abs Auto 0.000 0.0 - 0.012 X10*3/uL [facility] Blood Venous blood specimen / Unknown 12/31/2024 11:02 AM EDT 12/31/2024 1:19 PM EDT us Kianna Nunez MD LAB BLOOD ORDERABLES Final Re sult Performing Organization Address City/[facility]/ZIP Co de Phone Number [facility] [address] [place] [phone] * Iron And Total Iron Binding Capacity (12/31/2024 11:02 AM EDT) [facility] Iron 86 30 - 160 mcg/dL [facility] Total Iron Binding Capacity 274 228 - 428 mcg/dL [facility] Percent Iron Saturation 31 15 - 50 % [facility] Unsaturated Iron Binding 188 ug/dL [facility] Blood Venous blood specimen / Unknown 12/31/2024 11:02 AM EDT 12/31/2024 1:19 PM EDT us Kianna Nunez MD LAB BLOOD ORDERABLES Final Re sult Performing Organization Address [facility] Co de Phone Number [facility] [address] [place] [phone] * RPR (Monitor) with Reflex to??Titer (12/31/2024 11:02 AM EDT) Pathologist [facility] RPR (Monitor) w/Refl Titer NON-REACTI VE NON-REACT FAUSTINO [facility] Comment:THIS TEST WAS PERFOR MED AT:[facility] [place] [phone] MCLAUGHLIN MD Rapid Plasma Reagin Ab Titer TNP [facility] Blood Venous blood specimen / Unknown 12/31/2024 11:02 AM EDT 12/31/2024 1:19 PM EDT us Kianna Nunez MD LAB BLOOD ORDERABLES Final Re sult Performing Organization Address City/[facility]/ZIP Co de Phone Number [facility] [address] [place] [phone] * HIV-1/2 Antigen and Antibodies, Fourth Generation, with Reflexes (12/31/2024 11:02 AM EDT) HIV AB/AG Nonreactive Nonreactive [facility] Comment:HIV-1 p24 Ag and/or HIV-1/HIV-2 Ab not detected.A test result that is nonreactive does not exclude thepossibility of exposure to or infection with HIV-1 and/orHIV-2. Nonreactive results in this assay for individualswith prior exposure to HIV-1 and/or HIV-2 may be due toantigen and antibody levels that are below the limit ofdetection of this assay.The [employer] HIV Ag/Ab Combo assay result andsupplemental assay results should be interpreted inconjunction with the patient's clinical presentation,history and other laboratory results. If the results areinconsistent with clinical evidence, additional testing issuggested to confirm the result. Blood Venous blood specimen / Unknown 12/31/2024 11:02 AM EDT 12/31/2024 1:18 PM EDT us Kianna Nunez MD LAB BLOOD ORDERABLES Final Re sult Performing Organization Address City/[facility]/ZIP Co de Phone Number [facility] [address] [place] [phone] * Sed Rate by Modified Guillermoergren (12/31/2024 11:02 AM EDT) Erythrocyte Sedimentation Rate 13 0 - 20 MM/HR [facility] Comment:Patients with polycy themia and many hemoglobin abnormalitiesmay have depressed sed rates whereas patients with anemiamay have elevated sed rates. Blood Venous blood specimen / Unknown 12/31/2024 11:02 AM EDT 12/31/2024 1:19 PM EDT us Kianna Nunez MD LAB BLOOD ORDERABLES Final Re sult Performing Organization Address [facility]/ZIP Co de Phone Number [facility] [address] [place] [phone] * C-reactive Protein (12/31/2024 11:02 AM EDT) C Reactive Protein <0.04 < or = 0.50 mg/dL [facility] Blood Venous blood specimen / Unknown 12/31/2024 11:02 AM EDT 12/31/2024 1:19 PM EDT us Kianna Nunez MD LAB BLOOD ORDERABLES Final Re sult Performing Organization Address [facility] Co de Phone Number [facility] [address] [place] [phone] * (ABNORMAL) Lactate Dehydrogenase (LD) (12/31/2024 11:02 AM EDT) Lactate Dehydrogenase 257(H) 122 - 220 U/L [facility] Blood Venous blood specimen / Unknown 12/31/2024 11:02 AM EDT 12/31/2024 1:19 PM EDT us Kianna Nunez MD LAB BLOOD ORDERABLES Final Re sult Performing Organization Address City/[facility]/ZIP Co de Phone Number [facility] [address] [place] [phone] [phone] * Ferritin (12/31/2024 11:02 AM EDT) Ferritin 48 10 - 250 ng/mL [facility] Blood Venous blood specimen / Unknown 12/31/2024 11:02 AM EDT 12/31/2024 1:19 PM EDT us Kianna Nunez MD LAB BLOOD ORDERABLES Final Re sult Performing Organization Address [facility] Co de Phone Number [facility] [address] [place] [phone] [phone] * Lipid Panel, Standard (12/31/2024 11:02 AM EDT) Triglycerides 71 <150 mg/dL [facility] Comment:Desirable Triglyceri de: less than 150 mg/dLBorderline High Triglyceride 150-199 mg/dLHigh Triglyceride: 200-499 mg/dLVery High Triglyceride: greater than or equal to 5OO mg/dL Cholesterol 147 <200 mg/dL [facility] Comment:Desirable Cholestero l: less than 200 mg/dLBorderline High Cholesterol: 200-239 mg/dLHigh Cholesterol: greater than 239 mg/dL LDL Cholesterol Calculated 64 <100 mg/dL [facility] Comment:Desirable LDL: less than 100 mg/dLNear Optimal/Above Optimal LDL: 110- 129 mg/dLBorderline High LDL: 130-159 mg/dLHigh LDL: 160-189 mg/dLVery High LDL: greater than or equal to 190 mg/dL HDL Cholesterol 69 >40 mg/dL [facility] Comment:Desirable HDL: great er than 40 mg/dL Note: This HDL assay may give artificially low results in patients with liver disease. Blood Venous blood specimen / Unknown 12/31/2024 11:02 AM EDT 12/31/2024 1:19 PM EDT us Kianna Nunez MD LAB BLOOD ORDERABLES Final Re sult Performing Organization Address City/[facility]/ZIP Co de Phone Number [facility] [address] [place] [phone] * (ABNORMAL) Comprehensive Metabolic Panel (12/31/2024 11:02 AM EDT) Sodium 145 135 - 145 mmol/L [facility] Potassium 3.9 3.3 - 5.1 mmol/L [facility] Chloride 112(H) 96 - 108 mmol/L [facility] Carbon Dioxide 24 22 - 29 mmol/L [facility] Anion Gap 13 12 - 20 [facility] Urea Nitrogen (BUN) 38(H) 9 - 16 mg/dL [facility] Creatinine, Serum 2.84(H) 0.5 - 1.4 mg/dL [facility] Estimated Glomerular Filt Rate 16 [facility] Comment:Chronic Kidney Disea se: Estimated GFR < 60 mL/min/1.50h8Ubkiwv Kidney Disease: Estimated GFR < 15 mL/min/1.73m2 Glucose 96 60 - 115 mg/dL [facility] Calcium 9.2 8.4 - 10.2 mg/dL [facility] Bilirubin, Total 0.5 0.0 - 1.0 mg/dL [facility] Aspartate Amino Transferase 23 5 - 31 U/L [facility] Alanine Aminotransferase 14 0 - 31 U/L [facility] Total Protein 7.6 6.5 - 8.0 g/dL [facility] Albumin Level 4.4 3.5 - 5.0 g/dL [facility] Alkaline Phosphatase 70 39 - 117 U/L [facility] Blood Venous blood specimen / Unknown 12/31/2024 11:02 AM EDT 12/31/2024 1:19 PM EDT us Kianna Nunez MD LAB BLOOD ORDERABLES Final Re sult [facility] [address] [place] [phone] * Hepatitis C Antibody with Reflex to HCV, RNA, Quantitative, Real-Time PCR (05/09/2024 2:01 PM EST) Hepatitis C Antibody Nonreactive Nonreactive [facility] Comment:Antibodies to HCV no t detected; does not exclude early acuteHCV infection. Blood Venous blood specimen / Unknown 05/09/2024 2:01 PM EST 05/09/2024 3:54 PM EST us Kianna Nunez MD LAB BLOOD ORDERABLES Final Re sult [facility] [address] [place] [phone] * DIGITAL BILATERAL SCREEN 1 (01/10/2019 [...] DIGITAL BILATERAL SCREEN 1 us Jose Syed OYSTER FARMER IMG BI PROCEDURES Final Result from Last 3 Months or Most Recently Relevant to Health Maintenance [facility] [facility] [address] [place] [address] Care Teams Environmental Emergencies Planner Relationship Specialty Start Date End Date Kianna Nunez MD [address] [place] [phone] PCP - General Family Medicine 02/02/20 Kleber Liu MD Vice President Quality Assurance 06/04/04 Anaya Parikh OD Optometry 04/09/24 Dorian Edouard Cash Management Specialist 06/04/04 [employer] Inspector Packer 04/09/24
--- OUTSIDE RECORDS SUMMARY | 2025-02-27 11:23 | XMS_ITS | Encounter Summary ---
Author Organization [employer] Address 75 [facility] 7t [place] [address] Care Team Providers Care Painter Airbrush Name Role Phone Kianna Nunez MD Primary Care Provider [phone] Encounter Details Date Type Department Care Team ([facility] Contact Info) Description 08/31/2022 Orders Only [facility] MED & PEDS [address] [place], [place] [phone] Timothy Ibrahim MD 505 [place], [place] [phone] Social History Tobacco Use Types Packs/Day Years [...] Upcoming Encounters Date Type Department Care Team ([facility] Contact Info) Description 03/30/2025 10:00 AM EDT Office Visit [facility] MED [facility] PEDS [address] [place], [place] [phone] Kianna Nunez MD 505 [place], [place] [phone] 06/29/2025 2:30 PM EST Office Visit [facility] OPTOMETRY [address] [place], [place] [phone] Jenni Morales OD [address] [place] [address] documented as of this encounter Procedures Procedure Name Priority Date/Time Associated Diagnosis Comments CULTURE, URINE, ROUTINE Routine 01/05/2023 10:30 AM EDT documented in this encounter Results * Culture, Urine, Routine (01/05/2023 10:30 AM EDT) Urine specimen obtained by clean catch procedure / Unknown 01/05/2023 10:30 AM EDT 01/05/2023 2:58 PM EDT Comment:[facility] LABS - 01/07/2023 7:34 AM EDT Escherichia coli Quant > 100,000 cfu/mL Escherichia coli: Ampicillin >=32(R) Escherichia coli: Ceftriaxone <=0.25(S) Escherichia coli: Gentamicin <=1(S) Escherichia coli: Levofloxacin >=8(R) Escherichia coli: Nitrofurantoin <=16(S) Escherichia coli: Trimethoprim/Sulfamethoxazole <=20(S) Specimen Source: Urine clean catch us Kianna Nunez MD LAB MICROBIOLOGY - GENERAL OR DERABLES Final Result [facility] [address] [place] [phone] documented in this encounter Visit Diagnoses Not on filedocumented in this encounter Care Teams Painter Airbrush Relationship Specialty Start Date End Date Kianna Nunez MD [address] [place] [address] PCP - General Family Medicine 02/02/20 Kleber Liu MD Rigger 06/04/04 Anaya Parikh OD Optometry 04/09/24 Dorian Edouard Child Protection Specialist 06/04/04 [employer] Salesperson 04/09/24 documented as of this encounter
== END 2025-02-27 10:37 | disposition home or self-care (01) ==
LOC: HO.HUSH 10:08
PROVIDERS: PCP Family Medicine; Visit Provider Urology
DX: N13.30 Unspecified hydronephrosis (principal)
CPT/HCPCS: 99213; G2211

== ENCOUNTER → 2025-02-27 10:07 | Outpatient (BNVA) | payer OTHER, SELFPAY | PROVIDERS: PCP Family Medicine; Visit Provider Urology | DX: N13.30 Unspecified hydronephrosis (principal) | CPT/HCPCS: 99212 ==

== ENCOUNTER 2025-03-12 10:46 | Outpatient (REF) | payer OTHER, SELFPAY | END 2025-03-12 10:47 | disposition home or self-care (01) | LOC: HO.HHCL 10:46 | PROVIDERS: PCP Family Medicine; Visit Provider Student in an Organized Health Care Education/Training Program | DX: Z13.89 Encounter for screening for other disorder (principal) ==

== ENCOUNTER 2025-03-19 13:58 | Outpatient (AMB) | payer OTHER, SELFPAY ==
[2025-03-19 14:30] VITALS: BP 120/70; PULSE 84; BMI 16.6
--- NOTE | 2025-03-19 14:30 | A.OFFVIS_ITS ---
Vital Signs 03/19/25 14:30 Height 5 ft 4 in Weight 97 lb 0.054 oz BMI 16.6 BP 120/70 Blood Pressure Location Lt brachial Position Sitting Pulse 84 Intake Visit Reasons: 6m follow up w device ck Intake Note: 6 month follow-up with [facility] check c/o fatigue Vehicle Assembly Inspector Required: Yes Vehicle Assembly Inspector Services: Vehicle Assembly Inspector Present Vehicle Assembly Inspector Name: Alyx Allergies Iodinated Contrast Media (CONTRAST,IV) Allergy (Severe, Verified 02/27/25 10:20) ANGIOEDEMA Medication List - Last Reconciled 03/19/25 by Kleber Liu MD ascorbic acid (vitamin C) 250 mg PO BID atorvastatin 40 mg PO BEDTIME calcium carbonate-vitamin D3 600 mg-5 mcg (200 unit) (Calcium 600 + D(3)) 1 tab PO BID carvedilol 37.5 mg (1.5 x 25 mg) PO BID 90 days dexamethasone 1 mg PO ONCE docusate sodium 100 mg PO BID donepezil 5 mg PO DAILY ferrous gluconate 324 mg PO Q OTHER DAY fluoxetine 20 mg PO DAILY 30 days hydralazine 25 mg PO TID hydroxyzine pamoate 25 mg PO Q8H PRN imipramine HCl 50 mg PO BEDTIME isosorbide mononitrate ER 30 mg PO QAM pantoprazole 40 mg PO DAILY sennosides (senna) 17.2 mg PO BEDTIME PRN torsemide 40 mg PO QAM umeclidinium-vilanterol 62.5-25 mcg/actuation (Anoro Ellipta) 1 inh inhalation DAILY HPI Comments Details: Georgiana comes for 6 months follow-up. History was obtained with help of kiln setter. Patient denies any clear cardiac complaints. Denies any exertional chest pain or worsening shortness of breath. No orthopnea, PND, leg edema. No prolonged palpitation, lightheadedness, syncope, ICD discharge. She takes all her medications. Denies actually smoking or cocaine use. She says she takes her medications regularly [facility] Medical History Acute pyelonephritis E coli bacteremia Rectal candidiasis Urinary tract infection UTI (urinary tract infection) Cocaine use disorder Cocaine use disorder in remission MDD (major depressive disorder), recurrent severe, without psychosis Hx of sepsis History of asthma Hyperlipidemia HTN (hypertension) Cardiomyopathy ICD (implantable cardioverter-defibrillator) in place CAD (coronary artery disease) Chronic heart failure with reduced ejection fraction and diastolic dysfunction GERD (gastroesophageal reflux disease) Surgical History History of surgery Hx of cystoscopy H/O hemorrhoidectomy Stented coronary artery Hx of colonoscopy Family History Father Diabetes HTN (hypertension) Mother Diabetes HTN (hypertension) Sister Throat cancer Family/Other Colon cancer Social History Household Members: None Housing: Apartment Are you a primary rn progressive care to a significant other at home: No Do you presently have visiting nurse or other home services: No Alcohol intake: never Comment: sleeping Patient Tobacco Use Status: Current everyday Tobacco user Tobacco use type: Cigarette Cigarette Packs Per Day: 2 Cigarettes Per Day: 40.0 Years Smoked: 38 e-Cigarette/Vaping Use: Never Used Second Hand Smoke Exposure: Yes Substance Use Type: Marijuana Advance Directives Date on File: 04/26/21 service: No Current occupational status: unemployed and disabled Sexual orientation: Straight/Heterosexual Review of Systems Const Denies chills, Denies fatigue, Denies fever(s), Denies frequent falls, Denies weakness, Denies weight gain and Denies weight loss ENT Denies dizziness Card Denies chest pain, Denies leg edema, Denies lightheadedness, Denies palpitations, Denies dyspnea, Denies dyspnea on exertion, Denies orthopnea and Denies other (loss of consciousness) Resp Denies cough, Denies dyspnea and Denies dyspnea on exertion GI Denies hematochezia and Denies change in stool character Musc Denies abnormal gait, Denies muscle weakness, Denies numbness, Denies radiating pain into limb and Denies tingling Neuro Denies abnormal gait, Denies dizziness, Denies frequent falls, Denies numbness, Denies tingling and Denies weakness Endo Denies fatigue and Denies palpitations Physical Exam Vital Signs: Last Vital Signs Pulse 84 03/19/25 14:30 BP 120/70 03/19/25 14:30 BMI result Body Mass Index 16.6 Const General: cooperative, comfortable, no acute distress, alert and awake Nutritional Appearance: thin Orientation/consciousness: patient oriented x3 Limitations: no limitations Neck Neck: Yes trachea midline, Yes supple and Yes no JVD Resp Effort & Inspection: normal respiratory effort Auscultation: clear to auscultation bilaterally Cardio Palpation: abnormal PMI displaced PMI Rate: regular rate Rhythm: regular rhythm Heart sounds: S1 normal heart sound present and S2 normal heart sound present GI Auscultation: normal bowel sounds Skin General skin exam: no rashes or lesions noted Neuro General: patient oriented x3 and no focal motor deficits Extrem General: Yes no clubbing, cyanosis or edema Office Procedures Cardiac Device Check Cardiac Device Check Details: Single-chamber [facility] ICD in place. Programmed in VVI at 40 beats per minute. No arrhythmias detected. Ventricular pacing thresholds excellent and reprogrammed to enhance battery life. Ventricular sensing is excellent. Pacing and shock lead impedance is stable. Battery life is at 10 years. [id number] Cardiac Device Check, single lead implantable defibrillator Procedure code (CPT) selection complete Assessment & Plan Assessment & Plan (1) Heart failure with reduced ejection fraction: Code(s): I50.20 - Unspecified systolic (congestive) heart failure Category: Medical Plan: Heart failure with reduced ejection fraction with severe LV systolic dysfunction with wall motion abnormality consistent with ischemic cardiomyopathy. Clinically currently not having any signs or symptoms of heart failure on current therapy. Continue carvedilol therapy for neurohormonal modulation. Currently on hydralazine Isordil combination due to renal insufficiency tolerating well with good vasodilators therapy. Currently on torsemide and patient appears to be euvolemic. Advised daily weight monitoring avoidance salt loading. Additional diuretics as need be. Follow-up echocardiogram near future. (2) CAD (coronary artery disease): Code(s): I25.10 - Atherosclerotic heart disease of [place] coronary artery without angina pectoris Category: Medical Plan: CAD with prior LAD stenting for cardiomyopathy process. Has done well. Currently on low-dose aspirin therapy which needs to be continued for life. Continue high-intensity statin therapy with target goal LDL less than 70 mg/dL. Avoidance of cocaine and smoking was discussed again. Blood pressure is currently well optimized. Encouraged to maintain activity level as tolerated. (3) ICD (implantable cardioverter-defibrillator) in place: Code(s): Z95.810 - Presence of automatic (implantable) cardiac defibrillator Category: Medical Plan: ICD in place for primary prevention. ICD is working well. Reprogrammed for adequate functioning. Will follow up remotely. Will follow up in the clinic in 6 months time with EKG and ICD check. Orders: Orders CA echo transthoracic complete Today I50.20 - Unspecified systolic (congestive) heart failure Coding Level of Care Code Est Pt Level 4 (16675) Complex EM visit Add On G2211 Diagnoses Heart failure with reduced ejection fraction I50.20 CAD (coronary artery disease) I25.10 ICD (implantable cardioverter-defibrillator) in place Z95.810 CPT Codes Cardiac Device Check - Cardiac Device 4: 89320-LR Cardiac Device Check, single lead implantable defibrillator ([id number])
--- OUTSIDE RECORDS SUMMARY | 2025-03-19 17:46 | XMS_ITS | Encounter Summary ---
Author Organization [employer] Address 75 [facility] 7t [place] [address] Care Team Providers Care Rim Fire Priming Tool Setter Name Role Phone Kianna Nunez MD Primary Care Provider [phone] Encounter Details Date Type Department Care Team (Late st Contact Info) Description 01/28/2025 Orders Only [facility] [address] [place] [address] Provider, MD Ch[place] Social History Tobacco Use [...] Description 03/30/2025 10:00 AM EDT Office Visit [facility] CHC MED & PEDS [address] [place], [place] [phone] Kianna Nunez MD [address] [place] [address] 06/29/2025 2:30 PM EST Office Visit [facility] OPTOMETRY [address] [place] [address] Jenni Morales, OD [address] [place] [address] documented as of this encounter Procedures Procedure [...] AM EDT Narrative 02/26/2025 1:35 PM EDT [address] [address] Nuclear Medicine Report Signed Patient: Georgiana Earl MR#: [id number] 28 : 1955 Acct:[id number] Age/Sex: 69 / F ADM Date: 02/26/25 Loc: [facility]ianMILLIER[facility] Attending Dr: Paul Rose MD Ordering Physician: Paul Rose MD Date of Service: 02/26/25 Procedure(s): NM renal flow w pharm int Accession Number(s): [id number] cc: Paul Rose MD; Kianna Nunez MD [...] 02/26/25 1332 DD/ 1059 TD/TT: 02/26/25 1230 Compliance Examiner: Procedure Note Donotuseinterpreter, Image - 02/26/[address] [address] Nuclear Medicine Report Signed Patient: Georgiana EarlMR#: [id number] 28 : 1955cct:[id number] Age/Sex: 69 / FADM Date: 02/26/25 Loc: NEELIMA Attending Dr: Paul Rose MD Ordering Physician: Paul Rose MD Date of Service: 02/26/25 Procedure(s): NM renal flow w pharm int Accession Number(s): [id number] cc: Paul Rose MD; Kianna Nunez MD [...] 02/26/25 1332 DD/ 1059 TD/TT: 02/26/25 1230 Compliance Examiner: [facility] External Provider IM NM PROCEDURES Final Result [...] documented as of this encounter Care Teams Rim Fire Priming Tool Setter Relationship Specialty Start Date End Date Kianna Nunez MD [address] [place] [address] PCP - General Family Medicine 02/02/20 Kleber Liu MD Diploma Pharmacy Technician 06/04/04 Anaya Parikh OD Optometry 04/09/24 Dorian Edouard Senior Research Analyst 06/04/04 [employer] Switchboard Operator 04/09/24 documented as of this encounter
--- OUTSIDE RECORDS SUMMARY | 2025-03-19 17:46 | XMS_ITS | Encounter Summary ---
Author Organization [employer] Address [address] [facility] [address] 7t [place] [address] Care Team Providers Care Senior Software Project Manager Name Role Phone Kianna Nunez MD Primary Care Provider [phone] Reason for Visit * Reason Comments Med Refill Encounter Details Date Type Department Care Team ([facility] st Contact Info) Description 09/24/2024 Refill [facility] CHC MED & PEDS [address] [place] [address] Kianna Nunez MD 505 [place] [address] Pain Social History Tobacco Use Types Packs/Day [...] Description 03/30/2025 10:00 AM EDT Office Visit [facility] CHC MED & PEDS [address] [place] [address] Kianna Nunez MD [address] [place] [address] 06/29/2025 2:30 PM EST Office Visit [facility] OPTOMETRY [address] [place] [address] Jenni Morales, OD [address] [place] [address] documented as of this encounter Visit Diagnoses Diagnosis Pain Generalized pain documented in this encounter Additional Health Concerns Assessment Noted Time PHQ-9 Depression Total Score: 18 024 10:34 AM EST documented as of this encounter Care Teams Senior Software Project Manager Relationship Specialty Start Date End Date Kianna Nunez MD [address] [place] [address] PCP - General Family Medicine 02/02/20 Kleber Liu MD Milk Wagon Driver 06/04/04 Anaya Parikh OD Optometry 04/09/24 Dorian Edouard Instrument Processing Tech 06/04/04 [employer] Spotter 04/09/24 documented as of this encounter
--- OUTSIDE RECORDS SUMMARY | 2025-03-19 17:46 | XMS_ITS | Encounter Summary ---
Author Organization [email or web address] Address 75 [facility] 7t [place] [address] Care Team Providers Care Chief Of Safety And Protection Name Role Phone Kianna Nunez MD Primary Care Provider [phone] Encounter Details Date Type Department Care Team ([facility] Contact Info) Description 08/31/2022 Orders Only [facility] CHC MED & PEDS [address] [place], [place] [phone] Timothy Ibrahim MD [address] [place], [place] [phone] Social History Tobacco Use Types Packs/Day Years [...] Upcoming Encounters Date Type Department Care Team ([facility] Contact Info) Description 03/30/2025 10:00 AM EDT Office Visit [facility] CHC MED & PEDS [address] [place], [place] [phone] Kianna Nunez MD [address] [place], [place] [phone] 06/29/2025 2:30 PM EST Office Visit [facility] OPTOMETRY [address] [place], [place] [phone] Jenni Morales OD [address] [place] [address] documented as of this encounter Procedures Procedure Name Priority Date/Time Associated Diagnosis Comments CULTURE, URINE, ROUTINE Routine 01/05/2023 10:30 AM EDT documented in this encounter Results * Culture, Urine, Routine (01/05/2023 10:30 AM EDT) Urine specimen obtained by clean catch procedure / Unknown 01/05/2023 10:30 AM EDT 01/05/2023 2:58 PM EDT Comment:[facility] LABS - 01/07/2023 7:34 AM EDT Escherichia coli Quant > 100,000 cfu/mL Escherichia coli: Ampicillin >=32(R) Escherichia coli: Ceftriaxone <=0.25(S) Escherichia coli: Gentamicin <=1(S) Escherichia coli: Levofloxacin >=8(R) Escherichia coli: Nitrofurantoin <=16(S) Escherichia coli: Trimethoprim/Sulfamethoxazole <=20(S) Specimen Source: Urine clean catch us Kianna Nunez MD LAB MICROBIOLOGY - GENERAL OR DERABLES Final Result [facility] [address] [place] [phone] documented in this encounter Visit Diagnoses Not on filedocumented in this encounter Care Teams Chief Of Safety And Protection Relationship Specialty Start Date End Date Kianna Nunez MD [address] [place] [address] PCP - General Family Medicine 02/02/20 Kleber Liu MD Stamp Maker 06/04/04 Anaya Parikh OD Optometry 04/09/24 Dorian Edouard Stove Tender 06/04/04 [employer] Deputy Controller 04/09/24 documented as of this encounter
--- OUTSIDE RECORDS SUMMARY | 2025-03-19 17:46 | XMS_ITS | Encounter Summary ---
Author Organization [employer] Address [address] [facility] [address] 7[address] [place] [address] Care Team Providers Care Blanching Machine Operator Name Role Phone Kianna Nunez MD Primary Care Provider [phone] Reason for Visit * Reason Onset Date Comments Pre-op Exam 11/15/2023 Encounter Details Date Type Department Care Team ([facility] st Contact Info) Description 11/15/2023 Telephone [facility] CHC MED & PEDS [address] [place], [place] [phone] Kianna Nunez MD 505 [place] [address] Pre-op Exam Social History Tobacco Use Types [...] with others, in a hotel, in a half-way, living outside on the street, on a [...] no Surgeon's name: Dr. Agustin Facility name: [facility] Surgeon's office number: [phone] Surgeon's office fax number: [phone] Contact name (person you spoke with): Kelli Last office note from surgeon requested: Pre-Op notes documented in this encounter Plan of Treatment Upcoming Encounters Date Type Department Care Team (Late st Contact Info) Description 03/30/2025 10:00 AM EDT Office Visit [facility] CHC MED & PEDS [address] [place] [address] Kianna Nunez MD [address] [place] [address] 06/29/2025 2:30 PM EST Office Visit [facility] OPTOMETRY [address] [place] [address] Jenni Morales, OD [address] [place] [address] documented as of this encounter Visit Diagnoses Not on filedocumented in this encounter Additional Health Concerns Assessment Noted Time PHQ-9 Depression Total Score: 0 05/01/20 23 2:20 PM EST documented as of this encounter Care Teams Blanching Machine Operator Relationship Specialty Start Date End Date Kianna Nunez MD [address] [place] [address] PCP - General Family Medicine 02/02/20 Kleber Liu MD Electrical Lineman 06/04/04 Anaya Parikh OD Optometry 04/09/24 Dorian Edourad Chemical Dependency Therapist 06/04/04 [employer] Charcoal Burner Beehive Kiln 04/09/24 documented as of this encounter
--- OUTSIDE RECORDS SUMMARY | 2025-03-19 17:46 | XMS_ITS | Encounter Summary ---
Author Organization [facility] [facility] Address [address] [facility] 7t [place] [address] Care Team Providers Care Glass Bead Maker Name Role Phone Kianna Nunez MD Primary Care Provider [phone] Reason for Visit * Reason Comments Med Refill Encounter Details Date Type Department Care Team (Late Contact Info) Description 02/20/2023 Refill [facility] CHC MED & PEDS [address] [place], [place] [phone] Kianna Nunez MD [address] [place], [place] [phone] Primary hypertension Social History Tobacco Use Types [...] Description 03/30/2025 10:00 AM EDT Office Visit [facility] CHC MED & PEDS [address] [place], [place] [phone] Kianna Nunez MD [address] [place], [place] [phone] 06/29/2025 2:30 PM EST Office Visit [facility] OPTOMETRY [address] [place], [place] [phone] Jenni Morales, OD [address] [place] [address] documented as of this encounter Visit Diagnoses Diagnosis Primary hypertension Unspecified essential hypertension documented in this encounter Care Teams Glass Bead Maker Relationship Specialty Start Date End Date Kianna Nunez MD [address] [place] [phone] PCP - General Family Medicine 02/02/20 Kleber Liu MD Swimming Pool Plasterer Helper 06/04/04 Anaya Parikh OD Optometry 04/09/24 Dorian Edouard Spring Machine Operator 06/04/04 [employer] Travel Administrator 04/09/24 documented as of this encounter
--- OUTSIDE RECORDS SUMMARY | 2025-03-19 17:46 | XMS_ITS | Clinical Summary ---
Author Organization [facility] Address [address] [place] [address] Phone Care Team Providers Care Product Safety Technician Name Role Phone Kianna Nunez MD Primary Care Provider [phone] Encounters Date Type Department Care Team Description 01/27/2025 10:45 AM EDT - 01/27/2025 11:59 PM EDT Hospital Encounter [facility] PET Scan [address] [place] [address] Other nonspecific abnormal finding of [...] Health Maintenance Due Date Last Done Comments Colorectal Cancer Screening: Colonoscopy 1955 RSV Immunization Adult Patients (1 - Risk 50-74 years 1-dose series) 2004 Breast Cancer Screening 01/10/2021 01/10/2019 Zoster Vaccines (3 of 3) 08/28/2022 07/03/2022, 12/02 Falls Risk Assessment 01/01/2024 Osteoporosis Screening (Bone [...] Signed Date: 01/28/2025 12:32 ET Workstation ID: [id number] Transcribed By: Self Edit Transcribed Date: 01/28/2025 [...] Signed Date: 01/28/2025 12:32 ET Workstation ID: [id number] Transcribed By: Self Edit Transcribed Date: 01/28/2025 12:23 ET Paul Andre MD IM NM PROCEDURES Final Result [place] [address] [place] [address] [facility] Care Teams Product Safety Technician Relationship Specialty Start Date End Date Kianna Nunez MD [address] [place] [address] PCP - General 08/27/23
--- OUTSIDE RECORDS SUMMARY | 2025-03-19 17:46 | XMS_ITS | Encounter Summary ---
Author Organization [employer] Address [address] [facility] [address] 7[address] [place] [address] Care Team Providers Care Bottle Machine Operator Name Role Phone Kianna Nunez MD Primary Care Provider [phone] Reason for Visit * Reason Onset Date Comments call back needed 02/20/2025 Encounter Details Date Type Department Care Team (Late st Contact Info) Description 02/20/2025 Telephone [facility] [address] [place] [address] Kianna Nunez MD [address] [place], [place] [phone] call back needed Social History Tobacco Use [...] - 02/20/2025 4:50 PM EDT TC from [employer] with [facility] requesting a call back due to [...] Description 03/30/2025 10:00 AM EDT Office Visit [facility] [address] [place] [address] Kianna Nunez MD 505 [place] [address] 06/29/2025 2:30 PM EST Office Visit [facility] [address] [place] [address] Jenni Morales, OD [address] [place] [address] documented as of this encounter Visit Diagnoses Not on filedocumented in this encounter Additional Health Concerns Assessment Noted Time PHQ-9 Depression Total Score: 7 12/20/19 25 9:35 AM EDT documented as of this encounter Care Teams Bottle Machine Operator Relationship Specialty Start Date End Date Kianna Nunez MD [address] [place] [address] PCP - General Family Medicine 02/02/20 Kleber Liu MD Administrative Job Titles 06/04/04 Anaya Parikh OD Optometry 04/09/24 Dorian Edouard Screen Repairer Crusher 06/04/04 [employer] Sole Molder 04/09/24 documented as of this encounter
--- OUTSIDE RECORDS SUMMARY | 2025-03-19 17:46 | XMS_ITS | Clinical Summary ---
Author Organization [employer] Address [address] [facility] [address] [place] [address] Care Team Providers Care Perfect Bind Machine Operator Name Role Phone Kianna Nunez MD Primary Care Provider [phone] Allergies Active Allergy Reactions Criticality Noted Date [...] DAY FOR 3 DAYS 11/28/19 24 Active imipramine (Tofranil) 50 MG tabletIndications [...] by mouth 2 times daily. 180 capsule 1 12/20/19 25 Active senna (Senokot) 8.6 MG tablet Take 2 tablets (17.2 mg) by mouth if needed at bedtime for constipation . 180 tablet 1 12/20/19 25 Active ferrous gluconate (Fergon) 324 [...] :Chronic heart failure, unspecified heart failure type (HCC) TAKE 1 TABLET BY MOUTH EVERY MORNING [...] BY MOUTH AT BEDTIME 90 tablet 1 02/05/20 25 Active hydrALAZINE (Apresoline) 25 MG tablet TAKE 1 TABLET BY MOUTH THREE TIMES DAILY IN THE MORNING, EVENING, AND BEDTIME 90 tablet 2 02/06/20 25 Active FLUoxetine (PROzac) 20 MG capsuleIndication s:Anxiety TAKE 1 CAPSULE BY MOUTH EVERY MORNING 90 capsule 1 03/09/20 25 Active torsemide (Demadex) 20 MG tabletIndications :Chronic heart failure, unspecified heart failure type (HCC) TAKE 1 TABLET BY MOUTH EVERY MORNING 90 tablet 1 03/09/20 25 Active FLUoxetine (PROzac) 20 MG capsuleIndication s:Anxiety TAKE 1 CAPSULE BY MOUTH EVERY MORNING 90 capsule 1 09/10/19 25 025 Discontinued torsemide (Demadex) 20 MG tabletIndications :Chronic heart failure, unspecified heart failure type (HCC) TAKE 1 TABLET BY MOUTH EVERY MORNING 90 tablet 1 09/10/19 25 025 Discontinued Active Problems Problem Noted [...] treatment as needed. Dementia with mood disturbance ([facility]) 024 Cognitive and behavioral changes 04/09/2024 Assessment & Plan (05/06/2024 9:07 AM EST): Referral to for further evaluation. Called and was made an appt to be seen via telemedicine by psych provider. Also was informed of locations she was referred for therapy and information given to granddaughter/BARREL LATHE OPERATOR INSIDE. Assessment & Plan (04/09/2024 11:16 AM EST): [...] and I will also send her to financial aid counselor. Labs: CBC, Comprehensive Metabolic Panel, Lipid panel, [...] is to refer patientfor OP individual therapy. [facility] crisis line number provided. At this time Georgiana Earl meets criteria for Visit Diagnoses: Problem List Items Addressed This Visit Other Anxiety Housing problems Patient ready to address current needs Yes Strengths include readiness to take action and awareness of the problem PLAN: 1. Follow up with [facility]: Recommended for follow-up: as needed 2. Patient goal is to feel less anxious and be connected with services 3. Behavioral Recommendations a. Referral for OP individual therapy b. Utilize coping mechanisms that works for her to decrease symptoms c. Contact [facility] crisis line if needed (information and number provided) Acute kidney injury superimposed on CKD 11/15/19 Acute pyelonephritis 11/14/2022 Anemia 11/14/2022 E coli [...] is to refer patientfor OP individual therapy. [facility] crisis line number provided. At this time Georgiana Earl meets criteria for Visit Diagnoses: Problem List Items Addressed This Visit Other Anxiety Housing problems Patient ready to address current needs Yes Strengths include readiness to take action and awareness of the problem PLAN: 1. Follow up with [facility]: Recommended for follow-up: as needed 2. Patient goal is to feel less anxious and be connected with services 3. Behavioral Recommendations a. Referral for OP individual therapy b. Utilize coping mechanisms that works for her to decrease symptoms c. Contact [facility] crisis line if needed (information and [...] supplementation. Chronic kidney disease, stage 4 (severe) (CMS/HC C) 05/09/2021 Gastroesophageal reflux disease 01/23/2018 Anemia due to [...] BP medication when she gets back to [place] today. -Seek medical attention if she has concerns. -Medication reconciliation with pharmacy was done today. Asthma 11/06/2011 Nephrolithiasis 11/06/2011 Tobacco user 09/13/2011 Resolved Problems Problem Noted Date Diagnosed Date Resolved Date Physical exam 08/22/2023 04/09/2024 Encounter for health-related screening 05/01/2023 04/09/2024 Assessment & Plan (05/01/2023 2:24 PM EST): -Labs: HIV-1/2, Hep. C-Ab. Encounters Date Type Department Care Team Description 03/11/2025 Telephone [facility] [address] [place] [phone] Kianna Nunez MD 03/08/2025 Refill [facility] [address] [place] [address] Lara Alanis MD Anxiety; Chronic heart failure, unspecified heart failure type (HCC) 02/27/2025 Telephone [facility] [address] [place] [address] Nutrition referral 02/20/2025 Telephone [facility] [address] [place] [address] Kianna Nunez MD call back needed 02/10/2025 [facility] Information Management [address] [place] [address] Kianna Nunez MD US BREAST ORDER 02/05/2025 Refill [facility] [address] [place] [address] Kianna Nunez MD 02/03/2025 Refill [facility] [address] [place] [address] Lara Alanis MD Failure to thrive in adult 01/28/2025 Orders Only [facility] Information Management [address] [place] [address] ProviderChacho MD 01/27/2025 [facility] Information [facility] [address] [place] [address] Kianna Nunez MD 01/23/2025 Telephone [facility] [address] [place] [address] Kianna Nunez MD Referral 01/22/2025 2:30 PM EDT Office Visit [facility] [address] [place] [address] Kianna Nunez MD Mass of lower outer quadrant of right breast (Primary Dx); Dysuria 01/22/2025 Travel 01/14/2025 Telephone [facility] [address] [place] [address] Kianna Nunez MD chart prep 01/12/2025 Telephone [facility] [address] [place] [address] Kianna Nunez MD Durable Medical Equipment 01/07/2025 Refill [facility] [address] [place] [address] Lara Alanis MD 01/07/2025 Refill [facility] [address] [place] [address] Kianna Nunez MD 01/06/2025 Refill [facility] [address] [place] [address] Lara Alanis MD Hyperlipidemia, unspecified hyperlipidemia type; Chronic heart failure, unspecified heart failure type (CMS/HCC); Gastroesophageal reflux disease, unspecified whether esophagitis present 01/05/2025 Telephone [facility] [address] [place] [address] Kianna Nunez MD No Show 12/31/2024 Results Follow-Up [facility] [address] [place] [address] Kianna Nunez MD Lipid Panel, Standard, TSH W/Reflex to FT4, Lactate Dehydrogenase (LD), Additional followed-up results: 5 12/30/2024 Telephone [facility] [address] [place] [address] Kianna Nunez MD restrictions for grand daughter 12/22/2024 Telephone [facility] [address] [place] [address] Kianna Nunez MD 12/19/2024 9:45 AM EDT Office Visit [facility] [address] [place] [address] Kianna Nunez MD Failure to thrive in adult (Primary Dx); Abdominal aortic aneurysm (AAA) without rupture, unspecified part (CMS/HCC); Adrenal incidentaloma (CMS/HCC); Mass of lower lobe of left lung; Chronic obstructive pulmonary disease, unspecified COPD type (CMS/HCC); Breast cancer screening by mammogram; Colon cancer screening; Encounter for immunization 12/19/2024 Travel from Last 3 Months Immunizations Immunization Administration [...] 03/30/2025 10:00 AM EDT Office Visit [facility] [address] [place] [address] Kianna Nunez MD [address] [place], [place] [phone] 06/29/2025 2:30 PM EST Office Visit [facility] OPTOMETRY [address] [place] [address] Jenni Morales, OD [address] [place] [address] Health Maintenance Due Date Last Done Comments CT Colonography 1954 Colonoscopy 1954 Colorectal Cancer Screening 1954 Dental Oral Exam 1954 FIT DNA/Cologuard 1955 FIT 1954 FOBT 1955 Sigmoidoscopy 1954 RSV Patients and Patients Aged 60 years or older (1 - Risk 60-74 years 1-dose series) 2014 Mammogram 01/10/2021 01/10/2019, 12/24/2017 Dental Prophylaxis 07/26/2023 01/22/2023 Dental X-Ray: Bitewings 01/24/2024 01/22/2023 COVID-19 Vaccine (2023- season) 2025 04/09/2024, 08/22/2023, 03/02/2021, Additional history [...] Mouth 01/23/2026 01/22/2023 Lipid Panel 12/31/2029 12/31/2024, 12/0 11/2023, 08/21/2022, Additional history exists Pneumococcal Vaccine: [...] AM EDT Narrative 02/26/2025 1:35 PM EDT [address] [address] Nuclear Medicine Report Signed Patient: Georgiana Earl MR#: [id number] 29 : 1955 Acct:[id number] Age/Sex: 69 / F ADM Date: 02/26/25 Loc: [facility] Attending Dr: Paul Rose MD Ordering Physician: Paul Rose MD Date of Service: 02/26/25 Procedure(s): NM renal flow w pharm int Accession Number(s): [id number] cc: Paul Rose MD; Kianna Nunez MD [...] 02/26/25 1332 DD/ 1059 TD/TT: 02/26/25 1230 Dye Padder Operator: Procedure Note Donotuseinterpreter, Image - 02/26/[address] [address] Nuclear Medicine Report Signed Patient: Desirae Earl#: [id number] 28 : 1955cct:[id number] Age/Sex: 69 / FADM Date: 02/26/25 Loc: [facility] Attending Dr: Paul Rose MD Ordering Physician: Paul Rose MD Date of Service: 02/26/25 Procedure(s): NM renal flow w pharm int Accession Number(s): [id number] cc: Paul Rose MD; Kianna Nunez MD [...] 02/26/25 1332 DD/ 1059 TD/TT: 02/26/25 1230 Dye Padder Operator: [facility] External Provider IMG NM PROCEDURES Final Result * PET/CT Bone Skull Base to Mid Thigh (01/27/2025 3:26 PM EDT) Anatomical Region Laterality Modality Body Computed Tomogra phy Historical Provider IMLuc CT PROCEDURES Final R esult * Culture, Urine, Routine (01/22/2025 2:39 PM EDT) Urine Urine specimen obtained by clean catch procedure / Unknown 01/22/2025 2:39 PM EDT 01/22/2025 5:34 PM EDT Comment:UACC Narrative [facility] - 01/24/2025 7:57 AM EDT Escherichia coli Quant > 100,000 cfu/mL Escherichia coli: Ampicillin >=32(R) Escherichia coli: Cefazolin (Urine) 8(S) Escherichia coli: Cefepime <=0.12(S) Escherichia coli: Ceftriaxone <=0.25(S) Escherichia coli: Ciprofloxacin >=4(R) Escherichia coli: Gentamicin <=1(S) Escherichia coli: Nitrofurantoin <=16(S) Escherichia coli: Trimethoprim/Sulfamethoxazole <=20(S) Specimen Source: Urine clean catch Result [facility] Kianna Nunez MD LAB MICROBIOLOGY - GENERAL OR DERABLES Final Result [facility] [address] [place] [phone] * (ABNORMAL) POCT urinalysis dipstick manually [...] Appearance, UA clear QC Media Lot # Comment:[id number] Lot# Expiration Date Comment:03/03/2025 Urine 01/22/2025 2:33 PM EDT Kianna Nunez MD POINT OF CARE TEST ENTER/EDIT ORDERABLES Final Result * Syphilis Screen (12/31/2024 11:02 AM EDT) Syphilis Screen Nonreactive Nonreactive [facility] Blood 12/31/2024 11:0 2 AM EDT 12/31/2024 1:19 PM EDT Kianna Nunez MD LAB BLOOD ORDERABLES Final Re sult Performing Organization Address [facility] Co de Phone Number [facility] [address] [place] [phone] * Vitamin B12 (Cobalamin) and Folate Panel, Serum (12/31/2024 11:02 AM EDT) Pathologist [facility] Vitamin B12 388 200 - 900 pg/mL [facility] Comment:NORMAL 200-900 PG/ML INDETERMINATE 160-199 PG/ML DEFICIENT < 160 PG/ML Folate 13.7 > or = 4.0 ng/mL [facility] Comment:Reference Values:> o r = [...] ORDERABLES Final Re sult Performing Organization Address [facility] Co de Phone Number [facility] [address] [place] [phone] * TSH W/Reflex to FT4 (12/31/2024 11:02 AM EDT) TSH reflex Free T4 0.61 0.32 - 4.0 uIU/mL [facility] Blood Venous blood specimen / Unknown 12/31/2024 11:02 AM EDT 12/31/2024 1:19 PM EDT Kianna Nunez MD LAB BLOOD ORDERABLES Final Re sult Performing Organization Address City/[facility]/ZIP Co de Phone Number [facility] [address] [place] [address] [phone] * Lyme Disease Ab with Reflex to Blot (IgG, IgM) (12/31/2024 11:02 AM EDT) Pathologist [facility] Lyme Antibody Screen <0.90 index [facility] Comment:Index Interpretation ----- < 0.90 [...] when erythemamigrans is apparent.THIS TEST WAS PERFORMED AT:[email or web address] [place] [phone] MCLAUGHLIN MD Lyme Blot TNP [facility] 12/31/2024 11:0 2 AM EDT 12/31/2024 1:19 PM EDT Kianna Nunez MD LAB BLOOD ORDERABLES Final Re sult [facility] [address] [place] [address] [phone] * (ABNORMAL) CBC auto differential (12/31/2024 11:02 AM EDT) White Blood Count 5.5 4.8 - 10.8 X10*3/uL [facility] Red Blood Count 3.69(L) 4.20 - 5.50 X10*6/uL [facility] Hemoglobin 11.1(L) 12.0 - 16.0 g/dl [facility] Hematocrit 34.1(L) 37.0 - 47.0 % [facility] Mean Corpuscular Volume 92.4 80.0 - 98.0 fL [facility] Mean Corpuscular Hemoglobin 30.1 27.0 - 33.0 pg [facility] Mean Corpuscular HGB Conc 32.6 31.0 - 35.0 g/dl [facility] Red Cell Distribution Width 15.9 11.0 - 16.0 % [facility] Platelet Count 252 160 - 400 X10*3/uL [facility] Mean Platelet Volume 9.9 9.4 - 12.3 fL [facility] Neutrophils Percent Auto 59.2 45 - 73 % [facility] Imm Gran Pct Auto 0.2 0.0 - 0.4 % [facility] Lymphocytes Percent Auto 28.5 20 - 40 % [facility] Monocytes Percent Auto 7.4 2 - 11 % [facility] Eosinophils Percent Auto 3.4 0 - 4 % [facility] Basophils Percent Auto 1.3 0 - 2 % [facility] NRBC Pct Auto 0.0 0.0 - 0.2 /100WBC [facility] Neutrophils Absolute Auto 3.3 2.0 - 8.3 x10*3/uL [facility] Imm Gran Abs Auto 0.01 0.00 - 0.03 X10*3/uL [facility] Lymphocytes Absolute Auto 1.6 1.2 - 4.9 X10*3/uL [facility] Monocytes Absolute Auto 0.4 0.1 - 1.2 X10*3/uL [facility] Eosinophils Absolute Auto 0.2 0.0 - 0.4 X10*3/uL [facility] Basophils Absolute Auto 0.1 0.0 - 0.2 X10*3/uL [facility] NRBC Abs Auto 0.000 0.0 - 0.012 X10*3/uL [facility] Blood Venous blood specimen / Unknown 12/31/2024 11:02 AM EDT 12/31/2024 1:19 PM EDT Kianna Nunez MD LAB BLOOD ORDERABLES Final Re sult Performing Organization Address [facility] de Phone Number [facility] [address] [place] [phone] * Iron And Total Iron Binding Capacity (12/31/2024 11:02 AM EDT) Pathologist [facility] Iron 86 30 - 160 mcg/dL [facility] Total Iron Binding Capacity 274 228 - 428 mcg/dL [facility] Percent Iron Saturation 31 15 - 50 % [facility] Unsaturated Iron Binding 188 ug/dL [facility] Blood Venous blood specimen / Unknown 12/31/2024 11:02 AM EDT 12/31/2024 1:19 PM EDT Kianna Nunez MD LAB BLOOD ORDERABLES Final Re sult Performing Organization Address [facility] de Phone Number [facility] [address] [place] [phone] * RPR (Monitor) with Reflex to??Titer (12/31/2024 11:02 AM EDT) Pathologist [facility] RPR (Monitor) w/Refl Titer NON-REACTI VE NON-REACT FAUSTINO [facility] Comment:THIS TEST WAS PERFOR MED AT:[email or web address] [place] [phone] MCLAUGHLIN MD Rapid Plasma Reagin Ab Titer TNP [facility] Blood Venous blood specimen / Unknown 12/31/2024 11:02 AM EDT 12/31/2024 1:19 PM EDT us Kianna Nunez MD LAB BLOOD ORDERABLES Final Re sult Performing Organization Address [facility]/ZIP Co de Phone Number [facility] [address] [place] [phone] * HIV-1/2 Antigen and Antibodies, Fourth Generation, with Reflexes (12/31/2024 11:02 AM EDT) HIV AB/AG Nonreactive Nonreactive [facility] Comment:HIV-1 p24 Ag and/or HIV-1/HIV-2 Ab not detected.A test result that is nonreactive does not exclude thepossibility of exposure to or infection with HIV-1 and/orHIV-2. Nonreactive results in this assay for individualswith prior exposure to HIV-1 and/or HIV-2 may be due toantigen and antibody levels that are below the limit ofdetection of this assay.The [employer] HIV Ag/Ab Combo assay result andsupplemental assay results should be interpreted inconjunction with the patient's clinical presentation,history and other laboratory results. If the results areinconsistent with clinical evidence, additional testing issuggested to confirm the result. Blood Venous blood specimen / Unknown 12/31/2024 11:02 AM EDT 12/31/2024 1:18 PM EDT us Kianna Nunez MD LAB BLOOD ORDERABLES Final Re sult Performing Organization Address City/[facility]/ZIP Co de Phone Number [facility] [address] [place] [address] [phone] * Sed Rate by Modified Guillermoergren (12/31/2024 11:02 AM EDT) Erythrocyte Sedimentation Rate 13 0 - 20 MM/HR [facility] Comment:Patients with polycy themia and many hemoglobin abnormalitiesmay have depressed sed rates whereas patients with anemiamay have elevated sed rates. Blood Venous blood specimen / Unknown 12/31/2024 11:02 AM EDT 12/31/2024 1:19 PM EDT Kianna Nunez MD LAB BLOOD ORDERABLES Final Re sult Performing Organization Address [facility] de Phone Number [facility] [address] [place] [phone] * C-reactive Protein (12/31/2024 11:02 AM EDT) C Reactive Protein <0.04 < or = 0.50 mg/dL [facility] Blood Venous blood specimen / Unknown 12/31/2024 11:02 AM EDT 12/31/2024 1:19 PM EDT Kianna Nunez MD LAB BLOOD ORDERABLES Final Re sult Performing Organization Address [facility] de Phone Number [facility] [address] [place] [phone] * (ABNORMAL) Lactate Dehydrogenase (LD) (12/31/2024 11:02 AM EDT) Lactate Dehydrogenase 257(H) 122 - 220 U/L [facility] Blood Venous blood specimen / Unknown 12/31/2024 11:02 AM EDT 12/31/2024 1:19 PM EDT Kianna Nunez MD LAB BLOOD ORDERABLES Final Re sult Performing Organization Address [facility] de Phone Number [facility] [address] [place] [phone] * Ferritin (12/31/2024 11:02 AM EDT) Ferritin 48 10 - 250 ng/mL [facility] Blood Venous blood specimen / Unknown 12/31/2024 11:02 AM EDT 12/31/2024 1:19 PM EDT us Kianna Nunez MD LAB BLOOD ORDERABLES Final Re sult Performing Organization Address [facility] Co de Phone Number [facility] [address] [place] [phone] [phone] * Lipid Panel, Standard (12/31/2024 11:02 AM EDT) Triglycerides 71 <150 mg/dL [facility] Comment:Desirable Triglyceri de: less than 150 mg/dLBorderline High Triglyceride 150-199 mg/dLHigh Triglyceride: 200-499 mg/dLVery High Triglyceride: greater than or equal to 5OO mg/dL Cholesterol 147 <200 mg/dL [facility] Comment:Desirable Cholestero l: less than 200 mg/dLBorderline High Cholesterol: 200-239 mg/dLHigh Cholesterol: greater than 239 mg/dL LDL Cholesterol Calculated 64 <100 mg/dL [facility] Comment:Desirable LDL: less than 100 mg/dLNear Optimal/Above Optimal LDL: 110- 129 mg/dLBorderline High LDL: 130-159 mg/dLHigh LDL: 160-189 mg/dLVery High LDL: greater than or equal to 190 mg/dL HDL Cholesterol 69 >40 mg/dL [facility] Comment:Desirable HDL: great er than 40 mg/dL Note: This HDL assay may give artificially low results in patients with liver disease. Blood Venous blood specimen / Unknown 12/31/2024 11:02 AM EDT 12/31/2024 1:19 PM EDT us Kianna Nunez MD LAB BLOOD ORDERABLES Final Re sult Performing Organization Address [facility]/ZIP Co de Phone Number [facility] [address] [place] [phone] * (ABNORMAL) Comprehensive Metabolic Panel (12/31/2024 11:02 AM EDT) Sodium 145 135 - 145 mmol/L [facility] Potassium 3.9 3.3 - 5.1 mmol/L [facility] Chloride 112(H) 96 - 108 mmol/L [facility] Carbon Dioxide 24 22 - 29 mmol/L [facility] Anion Gap 13 12 - 20 [facility] Urea Nitrogen (BUN) 38(H) 9 - 16 mg/dL [facility] Creatinine, Serum 2.84(H) 0.5 - 1.4 mg/dL [facility] Estimated Glomerular Filt Rate 16 [facility] Comment:Chronic Kidney Disea se: Estimated GFR < 60 mL/min/1.12g5Lgedfq Kidney Disease: Estimated GFR < 15 mL/min/1.73m2 Glucose 96 60 - 115 mg/dL [facility] Calcium 9.2 8.4 - 10.2 mg/dL [facility] Bilirubin, Total 0.5 0.0 - 1.0 mg/dL [facility] Aspartate Amino Transferase 23 5 - 31 U/L [facility] Alanine Aminotransferase 14 0 - 31 U/L [facility] Total Protein 7.6 6.5 - 8.0 g/dL [facility] Albumin Level 4.4 3.5 - 5.0 g/dL [facility] Alkaline Phosphatase 70 39 - 117 U/L [facility] Blood Venous blood specimen / Unknown 12/31/2024 11:02 AM EDT 12/31/2024 1:19 PM EDT us Kianna Nunez MD LAB BLOOD ORDERABLES Final Re sult [facility] [address] [place], [place] [phone] * Hepatitis C Antibody with Reflex to HCV, RNA, Quantitative, Real-Time PCR (05/09/2024 2:01 PM EST) Hepatitis C Antibody Nonreactive Nonreactive [facility] Comment:Antibodies to HCV no t detected; does not exclude early acuteHCV infection. Blood Venous blood specimen / Unknown 05/09/2024 2:01 PM EST 05/09/2024 3:54 PM EST us Kianna Nunez MD LAB BLOOD ORDERABLES Final Re sult [facility] [address] [place] [phone] * DIGITAL BILATERAL SCREEN 1 (01/10/2019 [...] DIGITAL BILATERAL SCREEN 1 us Jose Syed [employer]YROLL CONSULTANT IMG BI PROCEDURES Final Result from Last 3 Months or Most Recently Relevant to Health Maintenance [facility] [place] [facility] [address] [place] [id number] [place] [id number] Care Teams Perfect Bind Machine Operator Relationship Specialty Start Date End Date Kianna Nunez MD [address] [place] [phone] PCP - General Family Medicine 02/02/20 Kleber Liu MD Boilermaker Ship 06/04/04 Anaya Parikh OD Optometry 04/09/24 Dorian Edouard Machine Bander And Cellophaner Helper 06/04/04 [employer] C[employer]cher 04/09/24
--- OUTSIDE RECORDS SUMMARY | 2025-03-19 17:46 | XMS_ITS | Encounter Summary ---
Author Organization [employer] Address [address] [place] [address] Care Team Providers Care Instructional Technology Instructor Name Role Phone Kianna Nunez MD Primary Care Provider [phone] Reason for Visit * Reason Onset Date Comments Nurse Triage 01/08/2024 Encounter Details Date Type Department Care Team (Late st Contact Info) Description 01/08/2024 Telephone [facility] [address] [place] [address] Kianna Nunez MD [address] [place], [place] [phone] Nurse Triage Social History Tobacco Use Types [...] with others, in a hotel, in a fci, living outside on the street, on a [...] to speak for Pt. Pt only speaks gambian. Pt has been having some rectal bleeding [...] ASK apt with Dr. Mcgowan, 01/16/24 @ [facility]. Insurance is verified as active prior [...] 01/08/2024 2:20 PM EDT Triage call with clive Fur Cleaner ID [id number]. Call to [phone] unable to get connection, callto [phone] unable to get connection. * Telephone Encounter - Ruba Hinson - 01/08/2024 2:09 PM EDT Symptoms: Body Aches, Urination Pain Outcome: Schedule an urgent appointment (within 1 hour) or talk to a nurse or provider soon Reason: Severe pain now The caller accepted this outcome Please contact at [phone] documented in this encounter Plan of Treatment Upcoming Encounters Date Type Department Care Team (Late st Contact Info) Description 03/30/2025 10:00 AM EDT Office Visit [facility] [address] [place] [address] Kianna Nunez MD [address] [place] [address] 06/29/2025 2:30 PM EST Office Visit [facility] [address] [place] [address] Jenni Morales, OD [address] [place] [address] documented as of this encounter Visit Diagnoses Not on filedocumented in this encounter Additional Health Concerns Assessment Noted Time PHQ-9 Depression Total Score: 0 05/01/20 23 2:20 PM EST documented as of this encounter Care Teams Instructional Technology Instructor Relationship Specialty Start Date End Date Kianna Nunez MD [address] [place] [address] PCP - General Family Medicine 02/02/20 Kleber Liu MD Java Portal Developer 06/04/04 Anaya Parikh OD Optometry 04/09/24 Dorian Edouard Revenue Inspector 06/04/04 [employer] [facility] Track Man 04/09/24 documented as of this encounter
--- OUTSIDE RECORDS SUMMARY | 2025-03-19 17:46 | XMS_ITS | Encounter Summary ---
Author Organization [employer] Address [address] [place] [address] Care Team Providers Care Shotgun Shell Assembly Machine Adjuster Name Role Phone Kianna Nunez MD Primary Care Provider [phone] Reason for Visit * Reason Onset Date Comments restrictions for grand daughter 12/30/2024 Encounter Details Date Type Department Care Team ([facility] st Contact Info) Description 12/30/2024 Telephone [facility] [address] [place] [address] Kianna Nunez MD [address] [place], [place] [phone] restrictions for grand daughter Social History Tobacco [...] permission and then telling her daughters in [place] that she is not coming to her appts. Upon review of patient chart, her appt on 01/05 has not been cancelled. However she states that her grand daughter Mendy Nye has cancelled appts in the past.She says she needs to keep this appt because her daughters are comin gin from [place] to meet her PCP and discuss medical concerns. She does not want her grand daughter Mendy Nye to have access toher information DR documented in this encounter Plan of Treatment Upcoming Encounters Date Type Department Care Team ([facility] st Contact Info) Description 03/30/2025 10:00 AM EDT Office Visit [facility] MED & PEDS [address] [place], [place] [phone] Kianna Nunez MD [address] [place], [place] [phone] 06/29/2025 2:30 PM EST Office Visit [facility] [address] [place], [place] [phone] Jenni Morales, OD [address] [place] [address] documented as of this encounter Visit Diagnoses Not on filedocumented in this encounter Additional Health Concerns Assessment Noted Time PHQ-9 Depression Total Score: 7 12/20/19 25 9:35 AM EDT documented as of this encounter Care Teams Shotgun Shell Assembly Machine Adjuster Relationship Specialty Start Date End Date Kianna Nunez MD [address] [place], [place] [phone] PCP - General Family Medicine 02/02/20 Kleber Liu MD Tank Filler 06/04/04 Anaya Parikh OD Optometry 04/09/24 Dorian Edouard Freight And Passenger Agent 06/04/04 [facility] Double Bottom Driver 04/09/24 documented as of this encounter
--- OUTSIDE RECORDS SUMMARY | 2025-03-19 17:46 | XMS_ITS | Encounter Summary ---
Author Organization [employer] Address [address] [place] [address] Care Team Providers Care Law Office Manager Name Role Phone Kianna Nunez MD Primary Care Provider [phone] Reason for Visit * Reason Onset Date Comments insurance update 10/05/2022 Appointment 10/05/2022 Encounter Details Date Type Department Care Team ([facility] st Contact Info) Description 10/05/2022 Telephone [facility] [address] [place] [address] Felisha Burkett DDS insurance update; Appointment Social [...] - 10/05/2022 10:06 AM EDT Bartolo from [facility] called in stating that patient had appt a couple of days ago but was unable to be seen due to apparently having no insurance coverage. She does have coverage through [facility] benefit providers. The id number for the dental portion would be [id number]. Please update insurance info and contact patient for rescheduling DR documented in this encounter Plan of Treatment Upcoming Encounters Date Type Department Care Team (Late st Contact Info) Description 03/30/2025 10:00 AM EDT Office Visit [facility] MED & PEDS [address] [place], [place] [phone] Kianna Nunez MD [address] [place] [address] 06/29/2025 2:30 PM EST Office Visit [facility] OPTOMETRY [address] [place] [address] Jenni Morales OD [address] [place] [address] documented as of this encounter Visit Diagnoses Not on filedocumented in this encounter Care Teams Law Office Manager Relationship Specialty Start Date End Date Kianna Nunez MD [address] [place] [address] PCP - General Family Medicine 02/02/20 Kleber Liu MD Industrial Safety And Health Technician 06/04/04 Anaya Parikh OD Optometry 04/09/24 Dorian Edouard Truant Officer 06/04/04 [employer] [facility] Uniform Patrol Police Officer 04/09/24 documented as of this encounter
== END 2025-03-19 14:50 | disposition home or self-care (01) ==
LOC: HO.HCS 13:59
PROVIDERS: PCP Family Medicine; Visit Provider Internal Medicine Cardiovascular Disease
DX: I50.20 Unspecified systolic (congestive) heart failure (principal); I25.10 Atherosclerotic heart disease of native coronary artery without angina pectoris; Z95.810 Presence of automatic (implantable) cardiac defibrillator
CPT/HCPCS: 93282; 99214; G2211

== ENCOUNTER → 2025-03-19 13:58 | Outpatient (BNVA) | payer OTHER, SELFPAY | PROVIDERS: PCP Family Medicine; Visit Provider Internal Medicine Cardiovascular Disease | DX: I11.0 Hypertensive heart disease with heart failure (principal); I50.20 Unspecified systolic (congestive) heart failure; I25.10 Atherosclerotic heart disease of native coronary artery without angina pectoris; Z95.810 Presence of automatic (implantable) cardiac defibrillator | CPT/HCPCS: 93282; 99212 ==

== ENCOUNTER 2025-03-23 08:04 | Outpatient (REF) | payer OTHER, SELFPAY ==
--- OUTSIDE RECORDS SUMMARY | 2025-03-23 08:09 | XMS_ITS | Clinical Summary ---
Author Organization [employer] Address [address] [facility] 7[address] [place] [address] Care Team Providers Care Wharf Tender Head Name Role Phone Kianna Nunez MD Primary Care Provider [phone] Allergies Active Allergy Reactions Criticality Noted Date [...] treatment as needed. Dementia with mood disturbance ([facility]) 024 Cognitive and behavioral changes 04/09/2024 Assessment & Plan (05/06/2024 9:07 AM EST): Referral to for further evaluation. Called and was made an appt to be seen via telemedicine by psych provider. Also was informed of locations she was referred for therapy and information given to granddaughter/AIRCRAFT STRUCTURAL REPAIR MECHANIC. Assessment & Plan (04/09/2024 11:16 AM EST): [...] and I will also send her to promotion manager. Labs: CBC, Comprehensive Metabolic Panel, Lipid panel, [...] is to refer patientfor OP individual therapy. [facility] crisis line number provided. At [...] for her to decrease symptoms c. Contact [facility] crisis line if needed (information [...] is to refer patientfor OP individual therapy. [facility] crisis line number provided. At [...] for her to decrease symptoms c. Contact [facility] crisis line if needed (information [...] BP medication when she gets back to [place] today. -Seek medical attention if she has concerns. -Medication reconciliation with pharmacy was done today. Asthma 11/06/2011 Nephrolithiasis 11/06/2011 Tobacco user 09/13/2011 Resolved Problems Problem Noted Date Diagnosed Date Resolved Date Physical exam 08/22/2023 04/09/2024 Encounter for health-related screening 05/01/2023 04/09/2024 Assessment & Plan (05/01/2023 2:24 PM EST): -Labs: HIV-1/2, Hep. C-Ab. Encounters Date Type Department Care Team Description 03/11/2025 Telephone [facility] MEDICINE [address] [place] [phone] Kianna Nunez MD 03/08/2025 Refill [facility] MED & PEDS [address] [place] [address] Lara Alanis MD Anxiety; Chronic heart failure, unspecified heart failure type (HCC) 02/27/2025 Telephone [facility] [address] [place] [address] Nutrition referral 02/20/2025 Telephone [facility] [address] [place] [address] Kianna Nunez MD call back needed 02/10/2025 [facility] Information Management [address] [place] [address] Kianna Nunez MD US BREAST ORDER 02/05/2025 Refill [facility] MED & PEDS [address] [place] [address] Kianna Nunez MD 02/03/2025 Refill [facility] MED & PEDS [address] [place] [address] Lara Alanis MD Failure to thrive in adult 01/28/2025 Orders Only [facility] Information Management [address] [place] [address] ProviderChacho MD 01/27/2025 [facility] Information [facility] [address] [place] [address] Kianna Nunez MD 01/23/2025 Telephone [facility] MED & PEDS [address] [place] [address] Kianna Nunez MD Referral 01/22/2025 2:30 PM EDT Office Visit [facility] MED & PEDS [address] [place] [address] Kianna Nunez MD Mass of lower outer quadrant of right breast (Primary Dx); Dysuria 01/22/2025 Travel 01/14/2025 Telephone [facility] MED & PEDS [address] [place] [address] Kianna Nunez MD chart prep 01/12/2025 Telephone [facility] MED & PEDS [address] [place] [address] Kianna Nunez MD Durable Medical Equipment 01/07/2025 Refill [facility] MED & PEDS [address] [place] [address] Lara Alanis MD 01/07/2025 Refill [facility] MED & PEDS [address] [place] [address] Kianna Nunez MD 01/06/2025 Refill [facility] MED & PEDS [address] [place] [address] Lara Alanis MD Hyperlipidemia, unspecified hyperlipidemia type; Chronic heart failure, unspecified heart failure type (CMS/HCC); Gastroesophageal reflux disease, unspecified whether esophagitis present 01/05/2025 Telephone [facility] MED & PEDS [address] [place] [address] Kianna Nunez MD No Show 12/31/2024 Results Follow-Up [facility] MED & PEDS [address] [place] [address] Kianna Nunez MD Lipid Panel, Standard, TSH W/Reflex to FT4, Lactate Dehydrogenase (LD), Additional followed-up results: 5 12/30/2024 Telephone [facility] [address] [place] [address] Kianna Nunez MD restrictions for grand daughter 12/22/2024 Telephone [facility] MED & PEDS [address] [place], [place] [phone] Kianna Nunez MD from Last 3 Months Immunizations Immunization [...] the past 12 months, has t he [employer], gas, oil or water [employer] threatened to shut off services in your [...] Description 03/30/2025 10:00 AM EDT Office Visit [facility] MED & PEDS [address] [place] [address] Kianna Nunez MD [address] [place] [address] 06/29/2025 2:30 PM EST Office Visit [facility] OPTOMETRY [address] [place], [place] [phone] Jenni Morales, OD [address] [place] [address] Health Maintenance Due Date Last Done Comments [...] 12/14/2015, 08/13/2006 Depression Screening 12/19/2025 12/19/2024, 12/20/19 25 Tobacco Screening 01/22/2026 01/22/2025 Dental X-Ray: Full Mouth 01/23/2026 01/22/2023 Lipid Panel 12/31/2029 12/31/2024, 1211/2023, 08/21/2022, Additional history exists Pneumococcal Vaccine: 50+ [...] AM EDT Narrative 02/26/2025 1:35 PM EDT [address] [address] Nuclear Medicine Report Signed Patient: Georgiana Earl MR#: [id number] 29 : 1955 Acct:[id number] Age/Sex: 69 / F ADM Date: 02/26/25 Loc: [facility] Attending Dr: Paul Rose MD Ordering Physician: Paul Rose MD Date of Service: 02/26/25 Procedure(s): NM renal flow w pharm int Accession Number(s): [id number] cc: Paul Rose MD; Kianna Nunez MD [...] 02/26/25 1332 DD/ 1059 TD/TT: 02/26/25 1230 Formula Clerk: Procedure Note Donotuseinterpreter, Image - 02/26/[address] [address] Nuclear Medicine Report Signed Patient: Desirae Earl#: [id number] 28 : 1955cct:[id number] Age/Sex: 69 / FADM Date: 02/26/25 Loc: [facility] Attending Dr: Paul Rose MD Ordering Physician: Paul Rose MD Date of Service: 02/26/25 Procedure(s): NM renal flow w pharm int Accession Number(s): [id number] cc: Paul Rose MD; Kianna Nunez MD [...] 02/26/25 1332 DD/ 1059 TD/TT: 02/26/25 1230 Formula Clerk: [facility] External Provider IMG NM PROCEDURES Final [...] EDT 01/22/2025 5:34 PM EDT Comment:UACC Narrative [facility] - 01/24/2025 7:57 AM EDT [...] OR DERABLES Final Result Performing Organization Address City/State/[facility] Co de Phone Number [facility] [address] [place] [phone] * (ABNORMAL) POCT urinalysis dipstick manually resulted (01/22/2025 2:33 PM EDT) Pathologist [facility] Color, UA Yellow Clarity, UA Clear Glucose, UA Negative Bilirubin, UA Negative Ketones, UA Negative Spec Grav, UA 1.015 Blood, UA Negative Negative, None Detected pH, UA 6.0 Protein, UA 1+ 70+ Comment:30 mg/dL Urobilinogen, UA 0.2 Leukocytes, UA Few 15(A) Negative, Rare, Trace Comment:small Nitrite, UA Positive(A) Negative, None Detected Appearance, UA clear QC Media Lot # Comment:[id number] Lot# Expiration Date Comment:03/03/2025 Urine 01/22/2025 2:33 PM EDT Kianna Nunez MD POINT OF CARE TEST ENTER/EDIT ORDERABLES Final Result * Syphilis Screen (12/31/2024 11:02 AM EDT) Syphilis Screen Nonreactive Nonreactive [facility] Blood 12/31/2024 11:0 2 AM EDT 12/31/2024 1:19 PM EDT Kianna Nunez MD LAB BLOOD ORDERABLES Final Re sult Performing Organization Address [facility] Co de Phone Number [facility] [address] [place] [phone] * Vitamin B12 (Cobalamin) and Folate Panel, Serum (12/31/2024 11:02 AM EDT) Pathologist [facility] Vitamin B12 388 200 - 900 pg/mL [facility] Comment:NORMAL 200-900 PG/ML INDETERMINATE 160-199 PG/ML DEFICIENT < 160 PG/ML Folate 13.7 > or = 4.0 ng/mL [facility] Comment:Reference Values:> o r = [...] ORDERABLES Final Re sult Performing Organization Address [facility] Co de Phone Number [facility] [address] [place] [phone] * TSH W/Reflex to FT4 (12/31/2024 11:02 AM EDT) Pathologist [facility] TSH reflex Free T4 0.61 0.32 - 4.0 uIU/mL [facility] Blood Venous blood specimen / Unknown 12/31/2024 11:02 AM EDT 12/31/2024 1:19 PM EDT Kianna Nunez MD LAB BLOOD ORDERABLES Final Re sult Performing Organization Address [facility] de Phone Number [facility] [address] [place] [phone] * Lyme Disease Ab with Reflex to Blot (IgG, IgM) (12/31/2024 11:02 AM EDT) [facility] Lyme Antibody Screen <0.90 index [facility] Comment:Index Interpretation ----- < 0.90 [...] when erythemamigrans is apparent.THIS TEST WAS PERFORMED AT:[facility] [address] [id number] MCLAUGHLIN MD Lyme Blot [facility] 12/31/2024 11:0 2 AM EDT 12/31/2024 1:19 PM EDT Kianna Nunez MD LAB BLOOD ORDERABLES Final Re sult Performing Organization Address [facility] Co de Phone Number [facility] [address] [place] [phone] * (ABNORMAL) CBC auto differential (12/31/2024 11:02 AM EDT) [facility] White Blood Count 5.5 4.8 - 10.8 X10*3/uL [facility] Red Blood Count 3.69(L) 4.20 - 5.50 X10*6/uL [facility] Hemoglobin 11.1(L) 12.0 - 16.0 g/dl [facility] Hematocrit 34.1(L) 37.0 - 47.0 % [facility] Mean Corpuscular Volume 92.4 80.0 - 98.0 fL [facility] Mean Corpuscular Hemoglobin 30.1 27.0 - 33.0 pg [facility] Mean Corpuscular HGB Conc 32.6 31.0 - 35.0 g/dl [facility] Red Cell Distribution Width 15.9 11.0 - 16.0 % [facility] Platelet Count 252 160 - 400 X10*3/uL [facility] Mean Platelet Volume 9.9 9.4 - 12.3 fL [facility] Neutrophils Percent Auto 59.2 45 - 73 % [facility] Imm Gran Pct Auto 0.2 0.0 - 0.4 % [facility] Lymphocytes Percent Auto 28.5 20 - 40 % [facility] Monocytes Percent Auto 7.4 2 - 11 % [facility] Eosinophils Percent Auto 3.4 0 - 4 % [facility] Basophils Percent Auto 1.3 0 - 2 % [facility] NRBC Pct Auto 0.0 0.0 - 0.2 /100WBC [facility] Neutrophils Absolute Auto 3.3 2.0 - 8.3 x10*3/uL [facility] Imm Gran Abs Auto 0.01 0.00 - 0.03 X10*3/uL [facility] Lymphocytes Absolute Auto 1.6 1.2 - 4.9 X10*3/uL [facility] Monocytes Absolute Auto 0.4 0.1 - 1.2 X10*3/uL [facility] Eosinophils Absolute Auto 0.2 0.0 - 0.4 X10*3/uL [facility] Basophils Absolute Auto 0.1 0.0 - 0.2 X10*3/uL [facility] NRBC Abs Auto 0.000 0.0 - 0.012 X10*3/uL [facility] Blood Venous blood specimen / Unknown 12/31/2024 11:02 AM EDT 12/31/2024 1:19 PM EDT Kianna Nunez MD LAB BLOOD ORDERABLES Final Re sult Performing Organization Address [facility] Co de Phone Number [facility] [address] [place] [phone] * Iron And Total Iron Binding Capacity (12/31/2024 11:02 AM EDT) Iron 86 30 - 160 mcg/dL [facility] Total Iron Binding Capacity 274 228 - 428 mcg/dL [facility] Percent Iron Saturation 31 15 - 50 % [facility] Unsaturated Iron Binding 188 ug/dL [facility] Blood Venous blood specimen / Unknown 12/31/2024 11:02 AM EDT 12/31/2024 1:19 PM EDT Kianna Nunez MD LAB BLOOD ORDERABLES Final Re sult Performing Organization Address [facility] de Phone Number [facility] [address] [place] [phone] * RPR (Monitor) with Reflex to??Titer (12/31/2024 11:02 AM EDT) RPR (Monitor) w/Refl Titer NON-REACTI VE NON-REACT FAUSTINO [facility] Comment:THIS TEST WAS PERFOR MED AT:[facility] [address] [id number] MCLAUGHLIN MD Rapid Plasma Reagin Ab Titer TNP [facility] Blood Venous blood specimen / Unknown 12/31/2024 11:02 AM EDT 12/31/2024 1:19 PM EDT us Kianna Nunez MD LAB BLOOD ORDERABLES Final Re sult Performing Organization Address [facility] Co de Phone Number [facility] [address] [place] [phone] * HIV-1/2 Antigen and Antibodies, Fourth Generation, with Reflexes (12/31/2024 11:02 AM EDT) HIV AB/AG Nonreactive Nonreactive [facility] Comment:HIV-1 p24 Ag and/or HIV-1/HIV-2 Ab not detected.A test result that is nonreactive does not exclude thepossibility of exposure to or infection with HIV-1 and/orHIV-2. Nonreactive results in this assay for individualswith prior exposure to HIV-1 and/or HIV-2 may be due toantigen and antibody levels that are below the limit ofdetection of this assay.The [facility] HIV Ag/Ab Combo assay result andsupplemental assay results should be interpreted inconjunction with the patient's clinical presentation,history and other laboratory results. If the results areinconsistent with clinical evidence, additional testing issuggested to confirm the result. Blood Venous blood specimen / Unknown 12/31/2024 11:02 AM EDT 12/31/2024 1:18 PM EDT us Kianna Nunez MD LAB BLOOD ORDERABLES Final Re sult Performing Organization Address [facility] Co de Phone Number [facility] [address] [place] [phone] * Sed Rate by Modified Westergren (12/31/2024 11:02 AM EDT) Erythrocyte Sedimentation Rate 13 0 - 20 MM/HR [facility] Comment:Patients with polycy themia and many hemoglobin abnormalitiesmay have depressed sed rates whereas patients with anemiamay have elevated sed rates. Blood Venous blood specimen / Unknown 12/31/2024 11:02 AM EDT 12/31/2024 1:19 PM EDT us Kianna Nunez MD LAB BLOOD ORDERABLES Final Re sult Performing Organization Address [facility]/ZIP Co de Phone Number [facility] [address] [place] [phone] * C-reactive Protein (12/31/2024 11:02 AM EDT) Pathologist [facility] C Reactive Protein <0.04 < or = 0.50 mg/dL [facility] Blood Venous blood specimen / Unknown 12/31/2024 11:02 AM EDT 12/31/2024 1:19 PM EDT Kianna Nunez MD LAB BLOOD ORDERABLES Final Re sult Performing Organization Address [facility]/ZIP Co de Phone Number [facility] [address] [place] [phone] * (ABNORMAL) Lactate Dehydrogenase (LD) (12/31/2024 11:02 AM EDT) Pathologist [facility] Lactate Dehydrogenase 257(H) 122 - 220 U/L [facility] Blood Venous blood specimen / Unknown 12/31/2024 11:02 AM EDT 12/31/2024 1:19 PM EDT Kianna Nunez MD LAB BLOOD ORDERABLES Final Re sult Performing Organization Address [facility] Co de Phone Number [facility] [address] [place] [phone] * Ferritin (12/31/2024 11:02 AM EDT) Pathologist [facility] Ferritin 48 10 - 250 ng/mL [facility] Blood Venous blood specimen / Unknown 12/31/2024 11:02 AM EDT 12/31/2024 1:19 PM EDT Kianna Nunez MD LAB BLOOD ORDERABLES Final Re sult Performing Organization Address [facility] Co de Phone Number [facility] [address] [place] [phone] * Lipid Panel, Standard (12/31/2024 11:02 AM EDT) Triglycerides 71 <150 mg/dL [facility] Comment:Desirable Triglyceri de: less than 150 mg/dLBorderline High Triglyceride 150-199 mg/dLHigh Triglyceride: 200-499 mg/dLVery High Triglyceride: greater than or equal to 5OO mg/dL Cholesterol 147 <200 mg/dL [facility] Comment:Desirable Cholestero l: less than 200 mg/dLBorderline High Cholesterol: 200-239 mg/dLHigh Cholesterol: greater than 239 mg/dL LDL Cholesterol Calculated 64 <100 mg/dL [facility] Comment:Desirable LDL: less than 100 mg/dLNear Optimal/Above Optimal LDL: 110- 129 mg/dLBorderline High LDL: 130-159 mg/dLHigh LDL: 160-189 mg/dLVery High LDL: greater than or equal to 190 mg/dL HDL Cholesterol 69 >40 mg/dL [facility] Comment:Desirable HDL: great er than 40 mg/dL Note: This HDL assay may give artificially low results in patients with liver disease. Blood Venous blood specimen / Unknown 12/31/2024 11:02 AM EDT 12/31/2024 1:19 PM EDT us Kianna Nunez MD LAB BLOOD ORDERABLES Final Re sult [facility] [address] [place] [phone] * (ABNORMAL) Comprehensive Metabolic Panel (12/31/2024 11:02 AM EDT) Sodium 145 135 - 145 mmol/L [facility] Potassium 3.9 3.3 - 5.1 mmol/L [facility] Chloride 112(H) 96 - 108 mmol/L [facility] Carbon Dioxide 24 22 - 29 mmol/L [facility] Anion Gap 13 12 - 20 [facility] Urea Nitrogen (BUN) 38(H) 9 - 16 mg/dL [facility] Creatinine, Serum 2.84(H) 0.5 - 1.4 mg/dL [facility] Estimated Glomerular Filt Rate 16 [facility] Comment:Chronic Kidney Disea se: Estimated GFR < 60 mL/min/1.51h9Ryljto Kidney Disease: Estimated GFR < 15 mL/min/1.73m2 Glucose 96 60 - 115 mg/dL [facility] Calcium 9.2 8.4 - 10.2 mg/dL [facility] Bilirubin, Total 0.5 0.0 - 1.0 mg/dL [facility] Aspartate Amino Transferase 23 5 - 31 U/L [facility] Alanine Aminotransferase 14 0 - 31 U/L [facility] Total Protein 7.6 6.5 - 8.0 g/dL [facility] Albumin Level 4.4 3.5 - 5.0 g/dL [facility] Alkaline Phosphatase 70 39 - 117 U/L [facility] Blood Venous blood specimen / Unknown 12/31/2024 11:02 AM EDT 12/31/2024 1:19 PM EDT Kianna Nunez MD LAB BLOOD ORDERABLES Final Re sult Performing Organization Address City/[facility] Co de Phone Number [facility] [address] [place] [phone] * Hepatitis C Antibody with Reflex to HCV, RNA, Quantitative, Real-Time PCR (05/09/2024 2:01 PM EST) Hepatitis C Antibody Nonreactive Nonreactive [facility] Comment:Antibodies to HCV no t detected; does not exclude early acuteHCV infection. Blood Venous blood specimen / Unknown 05/09/2024 2:01 PM EST 05/09/2024 3:54 PM EST Kianna Nunez MD LAB BLOOD ORDERABLES Final Re sult Performing Organization Address [facility] Co de Phone Number [facility] [address] [place] [address] [phone] * DIGITAL BILATERAL SCREEN 1 (01/10/2019 1:40 PM EDT) Anatomical Region Laterality Modality Breast Bilateral Mammography 01/10/2019 1:40 PM EDT Narrative 01/10/2019 1:43 PM EDT Refer to the Notes tab for result details [facility] Procedure: DIGITAL BILATERAL SCREEN 1 Procedure Note Provider, MD Chacho - 08/26/2022 Refer to the Notes tab for result details [facility] Procedure: DIGITAL BILATERAL SCREEN 1 Jose Syed CORRECTIVE AND MANUAL ARTS THERAPIST IMG BI PROCEDURES Final Result from Last 3 Months or Most Recently Relevant to Health Maintenance Insurance [employer] [facility] [address] [place] [phone] Care Teams Wharf Tender Head Relationship Specialty Start Date End Date Kianna Nunez MD [address] [place] [phone] PCP - General Family Medicine 02/02/20 Kleber Liu MD Salvationist 06/04/04 Anaya Parikh OD Optometry 04/09/24 Dorian Edouard Dry Pan Charger 06/04/04 [facility] Wind Instrument Repairer 04/09/24
--- OUTSIDE RECORDS SUMMARY | 2025-03-23 08:09 | XMS_ITS | Encounter Summary ---
Author Organization [employer] [facility] Address [address] [place] [address] Care Team Providers Care Chronometer Assembler And Adjuster Name Role Phone Kianna Nunez MD Primary Care Provider [phone] Reason for Visit * Reason Comments Med Refill Encounter Details Date Type Department Care Team (Late Contact Info) Description 02/20/2023 Refill [facility] [address] [place], [place] [phone] Kianna Nunez MD [address] [place], [place] [phone] Primary hypertension Social History Tobacco Use Types [...] Upcoming Encounters Date Type Department Care Team ([facility] Contact Info) Description 03/30/2025 10:00 AM EDT Office Visit [facility] [address] [place], [place] [phone] Kianna Nunez MD [address] [place], [place] [phone] 06/29/2025 2:30 PM EST Office Visit [facility] OPTOMETRY [address] [place], [place] [phone] Jenni Morales, OD [address] [place] [address] documented as of this encounter Visit Diagnoses Diagnosis Primary hypertension Unspecified essential hypertension documented in this encounter Care Teams Chronometer Assembler And Adjuster Relationship Specialty Start Date End Date Kianna Nunez MD [address] [place] [address] [phone] PCP - General Family Medicine 02/02/20 Kleber Liu MD Electronics Engineering Technician 06/04/04 Anaya Parikh OD Optometry 04/09/24 Dorian Edouard Coin Machine Assembler 06/04/04 [facility] Resident Care Director 04/09/24 documented as of this encounter
--- OUTSIDE RECORDS SUMMARY | 2025-03-23 08:09 | XMS_ITS | Encounter Summary ---
Author Organization [employer] Address [address] 7[address] [place] [address] Care Team Providers Care Physical Optics Teacher Name Role Phone Kianna Nunez MD Primary Care Provider [phone] Reason for Visit * Reason Onset Date Comments restrictions for grand daughter 12/30/2024 Encounter Details Date Type Department Care Team ([facility] st Contact Info) Description 12/30/2024 Telephone [facility] MEDICINE [address] [place] [address] Kianna Nunez MD [address] [place], [place] [phone] restrictions for grand daughter Social History Tobacco [...] permission and then telling her daughters in [place] that she is not coming to her appts. Upon review of patient chart, her appt on 01/05 has not been cancelled. However she states that her grand daughter Mendy Nye has cancelled appts in the past.She says she needs to keep this appt because her daughters are comin gin from [place] to meet her PCP and discuss medical concerns. She does not want her grand daughter Mendy Nye to have access toher information DR documented in this encounter Plan of Treatment Upcoming Encounters Date Type Department Care Team ([facility] st Contact Info) Description 03/30/2025 10:00 AM EDT Office Visit [facility] MED & PEDS [address] [place], [place] [phone] Kianna Nunez MD [address] [place], [place] [phone] 06/29/2025 2:30 PM EST Office Visit [facility] OPT[facility] [address] [place], [place] [phone] Jenni Morales, OD [address] [place] [address] documented as of this encounter Visit Diagnoses Not on filedocumented in this encounter Additional Health Concerns Assessment Noted Time PHQ-9 Depression Total Score: 7 12/20/19 25 9:35 AM EDT documented as of this encounter Care Teams Physical Optics Teacher Relationship Specialty Start Date End Date Kianna Nunez MD [address] [place], [place] [phone] PCP - General Family Medicine 02/02/20 Kleber Liu MD Condenser Operator 06/04/04 Anaya Parikh OD Optometry 04/09/24 Dorian Edouard Bulk Truck Driver 06/04/04 Samira Home Resource Specialist 04/09/24 documented as of this encounter
--- OUTSIDE RECORDS SUMMARY | 2025-03-23 08:09 | XMS_ITS | Encounter Summary ---
Author Organization [employer] Address [address] [place] [address] Care Team Providers Care Bill Cutter Name Role Phone Kianna Nunez MD Primary Care Provider [phone] Reason for Visit * Reason Comments Med Refill Encounter Details Date Type Department Care Team ([facility] st Contact Info) Description 09/24/2024 Refill [facility] CHC MED & PEDS [address] [place] [address] Kianna Nunez MD [address] [place] [address] Pain Social History Tobacco Use Types Packs/Day [...] Description 03/30/2025 10:00 AM EDT Office Visit [facility] CHC MED & PEDS [address] [place] [address] Kianna Nunez MD [address] [place] [address] 06/29/2025 2:30 PM EST Office Visit [facility] OPTOMETRY [address] [place] [address] Jenni Morales, OD [address] [place] [address] documented as of this encounter Visit Diagnoses Diagnosis Pain Generalized pain documented in this encounter Additional Health Concerns Assessment Noted Time PHQ-9 Depression Total Score: 18 024 10:34 AM EST documented as of this encounter Care Teams Bill Cutter Relationship Specialty Start Date End Date Kianna Nunez MD [address] [place] [address] PCP - General Family Medicine 02/02/20 Kleber Liu MD Interactive Project Manager 06/04/04 Anaya Parikh OD Optometry 04/09/24 Dorian Edouard Lamp Stack Developer 06/04/04 Temp Home Entry Level Financial Analyst 04/09/24 documented as of this encounter
--- OUTSIDE RECORDS SUMMARY | 2025-03-23 08:09 | XMS_ITS | Encounter Summary ---
Author Organization [employer] Address [address] [place] [address] Care Team Providers Care Veneer Gluer Name Role Phone Kianna Nunez MD Primary Care Provider [phone] Reason for Visit * Reason Onset Date Comments call back needed 02/20/2025 Encounter Details Date Type Department Care Team (Late st Contact Info) Description 02/20/2025 Telephone [facility] MEDICINE [address] [place] [address] Kianna Nunez MD [address] [place], [place] [phone] call back needed Social History Tobacco Use [...] - 02/20/2025 4:50 PM EDT TC from [place] with [facility] requesting a call back due to [...] 10:00 AM EDT Office Visit [facility] CHC MED & PEDS [address] [place] [address] Kianna Nunez MD [address] [place] [address] 06/29/2025 2:30 PM EST Office Visit [facility] OPTOMETRY [address] [place] [address] Jenni Morales, OD [address] [place] [address] documented as of this encounter Visit Diagnoses Not on filedocumented in this encounter Additional Health Concerns Assessment Noted Time PHQ-9 Depression Total Score: 7 12/20/19 25 9:35 AM EDT documented as of this encounter Care Teams Veneer Gluer Relationship Specialty Start Date End Date Kianna Nunez MD [address] [place] [address] PCP - General Family Medicine 02/02/20 Kleber Liu MD Ward Maid 06/04/04 Anaya Parikh OD Optometry 04/09/24 Dorian Edouard Warrant Server 06/04/04 [employer] [facility] Message Broker Developer 04/09/24 documented as of this encounter
--- OUTSIDE RECORDS SUMMARY | 2025-03-23 08:09 | XMS_ITS | Encounter Summary ---
Author Organization [employer] Address [address] 7[address] [place] [address] Care Team Providers Care Signal Wirer Name Role Phone Kianna Nunez MD Primary Care Provider [phone] Reason for Visit * Reason Onset Date Comments Nurse Triage 01/08/2024 Encounter Details Date Type Department Care Team (Late st Contact Info) Description 01/08/2024 Telephone [facility] MEDICINE [address] [place] [address] Kianna Nunez MD [address] [place], [place] [phone] Nurse Triage Social History Tobacco Use Types [...] with others, in a hotel, in a [place] [facility] [place], living outside on the street, on a [...] to speak for Pt. Pt only speaks burkinan. Pt has been having some rectal bleeding [...] with Dr. Mcgowan, 01/16/24 @ [facility]. Insurance is verified as active prior to [...] 01/08/2024 2:20 PM EDT Triage call with [place] [id number]. Call to [phone] unable to get connection, callto [phone] unable to get connection. * Telephone Encounter - Ruba Hinson - 01/08/2024 2:09 PM EDT Symptoms: Body Aches, Urination Pain Outcome: Schedule an urgent appointment (within 1 hour) or talk to a nurse or provider soon Reason: Severe pain now The caller accepted this outcome Please contact at [phone] documented in this encounter Plan of Treatment Upcoming Encounters Date Type Department Care Team (Late st Contact Info) Description 03/30/2025 10:00 AM EDT Office Visit [facility] CHC MED & PEDS [address] [place] [address] Kianna Nunez MD 505 [place] [address] 06/29/2025 2:30 PM EST Office Visit [facility] OPTOMETRY [address] [place] [address] Jenni Morales, OD [address] [place] [address] documented as of this encounter Visit Diagnoses Not on filedocumented in this encounter Additional Health Concerns Assessment Noted Time PHQ-9 Depression Total Score: 0 05/01/20 23 2:20 PM EST documented as of this encounter Care Teams Signal Wirer Relationship Specialty Start Date End Date Kianna Nunez MD [address] [place] [address] PCP - General Family Medicine 02/02/20 Kleber Liu MD Core Winding Operator 06/04/04 Anaya Parihk OD Optometry 04/09/24 Dorian Edouard Assembler Corncob Pipes 06/04/04 [employer] Third Rail Installer 04/09/24 documented as of this encounter
--- OUTSIDE RECORDS SUMMARY | 2025-03-23 08:09 | XMS_ITS | Encounter Summary ---
Author Organization [employer] Address [address] [facility] [facility] 7t [place] [address] Care Team Providers Care Baker Pastry Name Role Phone Kianna Nunez MD Primary Care Provider [phone] Encounter Details Date Type Department Care Team ([facility] Contact Info) Description 08/31/2022 Orders Only [facility] CHC MED & PEDS [address] [place], [place] [phone] Timothy Ibrahim MD [address] [place], [place] [phone] Social History Tobacco Use Types Packs/Day Years [...] Encounters Date Type Department Care Team ([facility] Contact Info) Description 03/30/2025 10:00 AM EDT Office Visit [facility] CHC MED & PEDS [address] [place], [place] [phone] Kianna Nunez MD [address] [place], [place] [phone] 06/29/2025 2:30 PM EST Office Visit [facility] OPTOMETRY [address] [place], [place] [phone] Jenni Morales OD [address] [place] [address] documented as of this encounter Procedures Procedure Name Priority Date/Time Associated Diagnosis Comments CULTURE, URINE, ROUTINE Routine 01/05/2023 10:30 AM EDT documented in this encounter Results * Culture, Urine, Routine (01/05/2023 10:30 AM EDT) Urine specimen obtained by clean catch procedure / Unknown 01/05/2023 10:30 AM EDT 01/05/2023 2:58 PM EDT Comment:[facility] LAB[facility] - 01/07/2023 7:34 AM EDT Escherichia coli Quant > 100,000 cfu/mL Escherichia coli: Ampicillin >=32(R) Escherichia coli: Ceftriaxone <=0.25(S) Escherichia coli: Gentamicin <=1(S) Escherichia coli: Levofloxacin >=8(R) Escherichia coli: Nitrofurantoin <=16(S) Escherichia coli: Trimethoprim/Sulfamethoxazole <=20(S) Specimen Source: Urine clean catch us Kianna Nunez MD LAB MICROBIOLOGY - GENERAL OR DERABLES Final Result [facility] [address] [place] [phone] documented in this encounter Visit Diagnoses Not on filedocumented in this encounter Care Teams Baker Pastry Relationship Specialty Start Date End Date Kianna Nunez MD [address] [place] [address] PCP - General Family Medicine 02/02/20 Kleber Liu MD Tetryl Blender Operator 06/04/04 Anaya Parikh OD Optometry 04/09/24 Dorian Edouard Machine Coremaker 06/04/04 [employer] [facility] Outsole Molder 04/09/24 documented as of this encounter
--- OUTSIDE RECORDS SUMMARY | 2025-03-23 08:09 | XMS_ITS | Encounter Summary ---
Author Organization [employer] Address [address] [facility] 7t [place] [address] Care Team Providers Care Medical Director Occupational Health Name Role Phone Kianna Nunez MD Primary Care Provider [phone] Encounter Details Date Type Department Care Team (Late st Contact Info) Description 01/28/2025 Orders Only [facility] [address] [place] [address] Provider, MD Chacho Social History Tobacco Use [...] Description 03/30/2025 10:00 AM EDT Office Visit [facility] CHC MED & PEDS [address] [place], [place] [phone] Kianna Nunez MD [address] [place] [address] 06/29/2025 2:30 PM EST Office Visit [facility] OPTOMETRY [address] [place] [address] Jenni Morales, OD [address] [place] [address] documented as of this encounter Procedures Procedure [...] AM EDT Narrative 02/26/2025 1:35 PM EDT [address] [address] Nuclear Medicine Report Signed Patient: Georgiana Earl MR#: [id number] 28 : 1955 Acct:[id number] Age/Sex: 69 / F ADM Date: 02/26/25 Loc: TERAJulianMILLIERICHARDSON Attending Dr: Paul Rose MD Ordering Physician: Paul Rose MD Date of Service: 02/26/25 Procedure(s): NM renal flow w pharm int Accession Number(s): [id number] cc: Paul Rose MD; Kianna Nunez MD [...] 02/26/25 1332 DD/ 1059 TD/TT: 02/26/25 1230 Electric Motorman: Procedure Note Donotuseinterpreter, Image - 02/26/[address] [address] Nuclear Medicine Report Signed Patient: Georgiana EarlMR#: [id number] 28 : 1955cct:[id number] Age/Sex: 69 / FADM Date: 02/26/25 Loc: NEELIMA Attending Dr: Paul Rose MD Ordering Physician: Paul Rose MD Date of Service: 02/26/25 Procedure(s): NM renal flow w pharm int Accession Number(s): [id number] cc: Paul Rose MD; Kianna Nunez MD [...] 02/26/25 1332 DD/ 1059 TD/TT: 02/26/25 1230 Electric Motorman: [facility] External Provider IM NM PROCEDURES Final [...] as of this encounter Care Teams Medical Director Occupational Health Relationship Specialty Start Date End Date Kianna Nunez MD [address] [place] [address] PCP - General Family Medicine 02/02/20 Kleber Liu MD Grocery Associate 06/04/04 Anaya Parikh OD Optometry 04/09/24 Dorian Edouard User Support Analyst Supervisor 06/04/04 [employer] Electronic Game Developer 04/09/24 documented as of this encounter
--- OUTSIDE RECORDS SUMMARY | 2025-03-23 08:09 | XMS_ITS | Encounter Summary ---
Author Organization [employer] Address [address] [place] [address] Care Team Providers Care Ore Roaster Name Role Phone Kianna Nunez MD Primary Care Provider [phone] Reason for Visit * Reason Onset Date Comments Pre-op Exam 11/15/2023 Encounter Details Date Type Department Care Team ([facility] st Contact Info) Description 11/15/2023 Telephone [facility] CHC MED & PEDS [address] [place], [place] [phone] Kianna Nunez MD [address] [place] [address] Pre-op Exam Social History Tobacco Use Types [...] no Surgeon's name: Dr. Agustin Facility name: [facility] Surgeon's office number: [phone] Surgeon's office fax number: [phone] Contact name (person you spoke with): Kelli Last office note from surgeon requested: Pre-Op notes documented in this encounter Plan of Treatment Upcoming Encounters Date Type Department Care Team (Late st Contact Info) Description 03/30/2025 10:00 AM EDT Office Visit [facility] CHC MED & PEDS [address] [place] [address] Kianna Nunez MD [address] [place] [address] 06/29/2025 2:30 PM EST Office Visit [facility] OPTOMETRY [address] [place] [address] Jenni Morales, OD [address] [place] [address] documented as of this encounter Visit Diagnoses Not on filedocumented in this encounter Additional Health Concerns Assessment Noted Time PHQ-9 Depression Total Score: 0 05/01/20 23 2:20 PM EST documented as of this encounter Care Teams Ore Roaster Relationship Specialty Start Date End Date Kianna Nunez MD [address] [place] [address] PCP - General Family Medicine 02/02/20 Kleber Liu MD Metal Furniture Assembly Supervisor 06/04/04 Anaya Parikh OD Optometry 04/09/24 Dorian Edouard Claims Account Specialist 06/04/04 [employer] Machine Mechanic Supervisor 04/09/24 documented as of this encounter
--- OUTSIDE RECORDS SUMMARY | 2025-03-23 08:09 | XMS_ITS | Clinical Summary ---
Author Organization [facility] Address [address] [place] [address] Phone Care Team Providers Care Paper Machine Tender Name Role Phone Kianna Nunez MD Primary Care Provider [phone] Encounters Date Type Department Care Team Description 01/27/2025 10:45 AM EDT - 01/27/2025 11:59 PM EDT Hospital Encounter [facility] PET Scan [address] [place] [address] Other nonspecific abnormal finding of [...] Signed Date: 01/28/2025 12:32 ET Workstation ID: [id number] Transcribed By: Self Edit Transcribed Date: 01/28/2025 [...] Signed Date: 01/28/2025 12:32 ET Workstation ID: [id number] Transcribed By: Self Edit Transcribed Date: 01/28/2025 12:23 ET Paul Andre MD IM NM PROCEDURES Final Result from [place] [address] [place] [address] [facility] Care Teams Paper Machine Tender Relationship Specialty Start Date End Date Kianna Nunez MD [address] [place] [address] PCP - General 08/27/23
--- OUTSIDE RECORDS SUMMARY | 2025-03-23 08:09 | XMS_ITS | Encounter Summary ---
Author Organization [employer] Address [address] [place] [address] Care Team Providers Care Stockroom Helper Name Role Phone Kianna Nunez MD Primary Care Provider [phone] Reason for Visit * Reason Onset Date Comments insurance update 10/05/2022 Appointment 10/05/2022 Encounter Details Date Type Department Care Team ([facility] st Contact Info) Description 10/05/2022 Telephone [facility] ADULT [facility] [address] [place] [address] Felisha Burkett DDS insurance update; Appointment Social [...] - 10/05/2022 10:06 AM EDT Bartolo from [facility] called in stating that patient had appt a couple of days ago but was unable to be seen due to apparently having no insurance coverage. She does have coverage through [facility] benefit providers. The id number for the dental portion would be [id number]. Please update insurance info and contact patient for rescheduling DR documented in this encounter Plan of Treatment Upcoming Encounters Date Type Department Care Team (Late st Contact Info) Description 03/30/2025 10:00 AM EDT Office Visit [facility] CHC MED & PEDS [address] [place], [place] [phone] Kianna Nunez MD [address] [place] [address] 06/29/2025 2:30 PM EST Office Visit [facility] OPTOMETRY [address] [place] [address] Jenni Morales OD [address] [place] [address] documented as of this encounter Visit Diagnoses Not on filedocumented in this encounter Care Teams Stockroom Helper Relationship Specialty Start Date End Date Kianna Nunez MD [address] [place] [address] PCP - General Family Medicine 02/02/20 Kleber Liu MD Show Jumping Instructor 06/04/04 Anaya Parikh OD Optometry 04/09/24 Dorian Edouard Apparel Pattern Maker 06/04/04 [employer] Rail Car Welder 04/09/24 documented as of this encounter
[2025-03-23 11:25] LABS: Anion Gap 14 (12-20); Blood Urea Nitrogen 48 mg/dL (9-16); Calcium 8.7 mg/dL (8.4-10.2); Carbon Dioxide 24 mmol/L (22-29); Chloride 113 mmol/L (96-108); Estimated Glomerular Filt Rate 14; Potassium 4.6 mmol/L (3.3-5.1); Sodium 146 mmol/L (135-145)
[2025-03-23 11:51] LABS: HIV Num 1 0.09 S/CO (0.00-0.99)
[2025-03-23 12:01] LABS: Folate 13.0 ng/mL (> or = 4.0); Vitamin B12 307 pg/mL (200-900)
[2025-03-28 08:38] LABS: Metanephrine, Free 59 pg/mL (<=57); Normetanephrines, Free 383 pg/mL (<=148); Total Metanephrine, Free 442 pg/mL (<=205)
== END 2025-03-23 08:05 | disposition home or self-care (01) ==
LOC: HO.HHCL 08:04
PROVIDERS: PCP Family Medicine; Referring Provider Family Medicine; Visit Provider Student in an Organized Health Care Education/Training Program
DX: Z11.4 Encounter for screening for human immunodeficiency virus [HIV] (principal); E27.9 Disorder of adrenal gland, unspecified; R62.7 Adult failure to thrive; R63.4 Abnormal weight loss; R41.3 Other amnesia
CPT/HCPCS: 36415; 80048; 80299; 82533; 82607; 82746; 83835; 84443; 87389

== ENCOUNTER → 2025-03-24 23:59 | Outpatient (BNV) | payer OTHER, SELFPAY ==
--- NOTE | 2025-03-27 12:27 | A.OFFVIS_ITS ---
Intake Visit Reasons: remote ICD check- [facility] Allergies Iodinated Contrast Media (CONTRAST,IV) Allergy (Severe, Verified 02/27/25 10:20) ANGIOEDEMA PFSH Medical History Acute pyelonephritis E coli bacteremia Rectal candidiasis Urinary tract infection UTI (urinary tract infection) Cocaine use disorder Cocaine use disorder in remission MDD (major depressive disorder), recurrent severe, without psychosis Hx of sepsis History of asthma Hyperlipidemia HTN (hypertension) Cardiomyopathy ICD (implantable cardioverter-defibrillator) in place CAD (coronary artery disease) Chronic heart failure with reduced ejection fraction and diastolic dysfunction GERD (gastroesophageal reflux disease) Surgical History History of surgery Hx of cystoscopy H/O hemorrhoidectomy Stented coronary artery Hx of colonoscopy Family History Father Diabetes HTN (hypertension) Mother Diabetes HTN (hypertension) Sister Throat cancer Family/Other Colon cancer Social History Household Members: None Housing: Apartment Are you a primary pharmacy care coordinator to a significant other at home: No Do you presently have visiting nurse or other home services: No Alcohol intake: never Comment: sleeping Patient Tobacco Use Status: Current everyday Tobacco user Tobacco use type: Cigarette Cigarette Packs Per Day: 2 Cigarettes Per Day: 40.0 Years Smoked: 38 e-Cigarette/Vaping Use: Never Used Second Hand Smoke Exposure: Yes Substance Use Type: Marijuana Advance Directives Date on File: 04/26/21 service: No Current occupational status: unemployed and disabled Sexual orientation: Straight/Heterosexual Office Procedures Cardiac Device Check Cardiac Device Check Details: Remote ICD report generated 03/24/2025. ICD function is okay [id number] Cardiac Interrogation, implant defibrillator w/interim Procedure code (CPT) selection complete Assessment & Plan Assessment & Plan (1) ICD (implantable cardioverter-defibrillator) in place: Code(s): Z95.810 - Presence of automatic (implantable) cardiac defibrillator Category: Medical Plan: See above Coding Level of Care Code Procedure Only Diagnoses ICD (implantable cardioverter-defibrillator) in place Z95.810 CPT Codes Cardiac Device Check - Cardiac Device 13: [id number] Cardiac Interrogation, implant defibrillator w/interim ([id number])
== END ==
PROVIDERS: PCP Family Medicine; Visit Provider Internal Medicine Cardiovascular Disease
DX: Z45.02 Encounter for adjustment and management of automatic implantable cardiac defibrillator (principal)
CPT/HCPCS: 93295

== ENCOUNTER 2025-04-02 13:07 | Outpatient (AMB) | payer OTHER, SELFPAY ==
--- OUTSIDE RECORDS SUMMARY | 2025-03-30 10:00 | XMS_ITS | Encounter Summary ---
Author Organization [employer] Address [address] [place] [address] Care Team Providers Care Water Treatment Specialist Name Role Phone Kianna Nunez MD Primary Care Provider [phone] Reason for Visit * Reason Comments Weight Loss Encounter Details Date Type Department Care Team ([facility] st Contact Info) Description 03/30/2025 10:00 AM EDT Office Visit [facility] MED [facility] PEDS [address] [place] [address] Kianna Nunez MD [address] [place] [address] Primary hypertension (Primary Dx); Pain; Encounter for immunization; Encounter for vaccination Social History Tobacco Use Types Packs/Day Years [...] Sign Reading Time Taken Comments Blood Pressure 150/94 03/30/2025 9:46 AM EDT Pulse 84 03/30/2025 9:46 AM EDT Temperature 37.1 C (98.8 F) 03/30/2025 9:46 AM EDT Respiratory Rate 20 03/30/2025 9:46 AM EDT Oxygen Saturation 98% 03/30/2025 9:46 AM EDT Inhaled Oxygen Concentration - - Weight 46 kg (101 lb 6.4 oz) 03/30/2025 9:46 AM EDT Height 151 cm (4' 11.45 ) 03/30/2025 9:46 AM EDT Body Mass Index 20.17 03/30/2025 9:46 AM EDT documented in this encounter Progress Notes * Kianna Nunez MD - 03/30/2025 10:00 AM EDT Subjective Patient ID: Georgiana Earl is a 70 y.o. female who presents for Weight Loss. Georgiana Earl is a patient with multiple medical conditions including left kidney atrophy, cardiacissues requiring an ICD device, adrenal gland disorder, and gastrointestinal symptoms who presents for follow-up care and coordination of multiple specialist consultations. The patient reports weight gain from 93 to 101 pounds, which she attributes to nutritional supplementation that is helping her condition. She describes experiencing increased thirst and liver discomfort, for which she is taking 2 shots daily. She reports body pain that is different from her usual pain pattern. Due to her heart condition, she cannot take anti-inflammatory medications for pain management. Regarding her gastrointestinal symptoms, she continues to experience tenesmus and rectal spasms. She has discussed colonoscopy preparation but reports that the dexamethasone suppression test instructions from her bank accountant are unclear and she needs to call for clarification. The patient reports insurance coverage issues that are affecting follow-up care with specialists. She mentions that breast imaging was ordered but has not been performed due to unresolved issues. Sheis monitoring her blood pressure at home as requested and has an appointment scheduled with a nursefor the following week. Recent healthcare interactions include multiple specialist consultations: urology on 02/27/2025 for kidney evaluation, cardiology with Dr. Gongora on 03/19/2025 for ICD device review, gynecology on 02/12for adrenal gland disorder, gastroenterology on 02/05 for gastrointestinal symptoms with a colonoscopy scheduled for 02/19, and pulmonology follow-up with Dr. Andre on 01/29/2025. She has also been seenby endocrinology for hormonal studies and laboratory work. Medical History - Heart condition with ICD device - Left kidney atrophy with poor secretion - Adrenal gland disorder Medications and Supplements - Dexamethasone - For suppression test - Nutritional supplementation - Helping with weight gain - Gabapentin - Suggested for body pain Immunizations - Influenza and COVID-19 vaccines: Discussed during visit Review of Systems General: Positive for weight gain, thirst. Gastrointestinal: Positive for tenesmus, rectal spasms, liver discomfort. Musculoskeletal: Positive for body pain. Review of Systems Objective BP (!) 150/94 Pulse 84 Temp 98.8 ??F (37.1 ??C) (Oral) Resp 20 Ht 4' 11.45 (1.51 m) Wt 101 lb 6.4 oz (46 kg) SpO2 98% BMI 20.17 kg/m?? Physical Exam Constitutional: General: She is not in acute distress. Appearance: She is not ill-appearing. HENT: Head: Normocephalic and atraumatic. Nose: No congestion. Pulmonary: Effort: Pulmonary effort is normal. No respiratory distress. Breath sounds: Normal breath sounds. Musculoskeletal: Cervical back: Normal range of motion. Neurological: General: No focal deficit present. Mental Status: She is alert. Psychiatric: Mood and Affect: Mood normal. Assessment/Plan Problem List Items Addressed This Visit Hypertension - Primary Other Visit Diagnoses Pain Encounter for immunization Relevant Orders FLU VACCINE TRIVALENT HIGH DOSE [id number] (Fluzone) 65 yrs + (Completed) Encounter for vaccination Relevant Orders COVID-19 VACCINE [id number] (Comirnaty) 19 yrs + (Completed) Georgiana Earl is a patient with multiple active medical issues including left kidney atrophy, adrenal gland disorder, gastrointestinal symptoms, and cardiac condition with ICD device, presenting forfollow-up care coordination. Left kidney atrophy Assessment: Patient has left kidney atrophy with poor secretion as demonstrated on lysis renal gramperformed during urology visit on 02/27/2025. The left kidney is noted to be small in size, indicating significant functional impairment requiring nephrology evaluation. Plan: - Nephrology referral initiated by urology Adrenal gland disorder Assessment: Patient has an adrenal gland disorder being evaluated by endocrinology with hormonal studies including dexamethasone suppression tests and morning cortisol levels. Test results are currently pending. Patient reports confusion regarding dexamethasone suppression test instructions. Plan: - Patient to call bank accountant for clarification of dexamethasone suppression test instructions - Await pending adrenal test results Gastrointestinal symptoms Assessment: Patient experiencing tenesmus and rectal spasms, evaluated by gastroenterology on 02/05. Colonoscopy scheduled for 02/19 to further evaluate these symptoms. Plan: - Colonoscopy preparation discussed - Proceed with scheduled colonoscopy on 02/19 Body pain Assessment: Patient reports pain in her body that is different from her usual pain pattern. Pain management is complicated by cardiac condition which precludes use of anti-inflammatory medications. Plan: - Gabapentin suggested for body pain management - Avoid anti-inflammatory pills due to heart condition Cardiac condition with ICD Assessment: Patient has cardiac condition requiring ICD device monitoring. Device check was performed by face painter Dr. Gongora on 03/19/2025. Plan: - Blood pressure monitoring at home requested - Appointment with nurse scheduled for next week Weight gain Assessment: Patient's weight has increased from 93 to 101 pounds. Nutritional supplementation appears to be helping with her weight gain. Plan: - Continue nutritional supplementation Pulmonary follow-up Assessment: Patient followed up with asphalt heater operator Dr. Andre on 01/29/2025. PET scan was benign with no FDG activity, indicating no concerning metabolic activity. Plan: - Repeat HHCT in 3 months Preventive care Assessment: Patient requires routine preventive care including vaccinations and breast imaging. Breast imaging was ordered but not yet performed due to unspecified issues. Plan: - Flu and COVID vaccines discussed - Resolve breast imaging issue documented in this encounter Plan of Treatment Upcoming Encounters Date Type Department Care Team (Late st Contact Info) Description 04/07/2025 3:00 PM EST Clinical Support [facility]S [address] [place] [address] 06/29/2025 2:30 PM EST Office Visit [facility] OPTOMETRY [address] [place] [address] Jenni Morales, OD [address] [place] [address] documented as of this encounter Visit Diagnoses Diagnosis Primary hypertension- Primary Unspecified essential hypertension Pain Generalized pain Encounter for immunization Encounter for vaccination documented in this encounter Additional Health Concerns Assessment Noted Time PHQ-9 Depression Total Score: 7 12/20/19 25 9:35 AM EDT documented as of this encounter Care Teams Water Treatment Specialist Relationship Specialty Start Date End Date Kianna Nunez MD [address] [place] [address] PCP - General Family Medicine 02/02/20 Kleber Liu MD String Cutter 06/04/04 Anaya Parikh OD Optometry 04/09/24 Dorian Edouard Victorian Literature Professor 06/04/04 [employer] Veneer Patcher 04/09/24 documented as of this encounter
--- NOTE | 2025-04-02 14:00 | MHC.OFFVIS ---
Vital Signs 04/02/25 14:17 Height 5 ft 4 in Weight 100 lb 8.493 oz BMI 17.3 BP 115/79 Blood Pressure Location Lt brachial Position Sitting Pulse 87 Intake Visit Reasons: scree Intake Note: Patient in office today in follow up for rectal bleeding. CC: Patient c/o constipation alternating with diarrhea, abd pain, rectal bleeding, ang trouble swallowing. Per last visit note patient was supposed to have cologuard done but she never received the cologuar kit. Director Video Required: Yes Allergies Iodinated Contrast Media (CONTRAST,IV) Allergy (Severe, Verified 04/24/25 14:18) ANGIOEDEMA HPI Comments Details: Assessment & Plan (1) Irritable bowel syndrome with both constipation and diarrhea: Code(s): K58.2 - Mixed irritable bowel syndrome Category: Medical (2) Rectal spasm: Code(s): K59.4 - Anal spasm Category: Medical (3) ICD (implantable cardioverter-defibrillator) in place: Code(s): Z95.810 - Presence of automatic (implantable) cardiac defibrillator Category: Medical (4) Cardiomyopathy: Code(s): I42.9 - Cardiomyopathy, unspecified Category: Medical (5) Acute kidney injury superimposed on CKD: Code(s): N17.9 - Acute kidney failure, unspecified; N18.9 - Chronic kidney disease, unspecified Category: Medical (6) Heart failure with reduced ejection fraction: Code(s): I50.20 - Unspecified systolic (congestive) heart failure Category: Medical (7) Cocaine use disorder: Code(s): F14.10 - Cocaine abuse, uncomplicated Category: Medical (8) Pulmonary mass: Code(s): R91.8 - Other nonspecific abnormal finding of lung field Category: Medical (9) Emphysema lung: Code(s): J43.9 - Emphysema, unspecified Category: Medical (10) Pre-op examination: Code(s): Z01.818 - Encounter for other preprocedural examination Category: Medical Plan Citizen Of [place] #Anyi Andrew I have never seen this patient since 08/2020 She has serious cardiac disease with low ejection fraction but also has a defibrillator/patient place. She also has COPD and end-stage chronic kidney disease. Given no first-degree relatives with colon cancer and her having no past polyps we will proceed to Cologuard. I THINK THIS IS A DIETRICH 1ST APPROACH GIVEN THE PATIENT'S ADVANCED AGE AND MULTIPLE COMORBIDITIES. She was made aware that if the test is positive then we will need to consider colonoscopy, but then at least we will know the risk is warranted in terms of potential long-term benefit. Return office visit in 8 weeks COLOGUARD; not ordered TODAYS VISIT Citizen Of [place] # V live [facility] Medical History (Updated 04/29/25 @ 14:04 by TONY Albarran) Colon cancer screening Acute pyelonephritis E coli bacteremia Rectal candidiasis Urinary tract infection UTI (urinary tract infection) Cocaine use disorder Cocaine use disorder in remission MDD (major depressive disorder), recurrent severe, without psychosis Hx of sepsis History of asthma Hyperlipidemia HTN (hypertension) Cardiomyopathy ICD (implantable cardioverter-defibrillator) in place CAD (coronary artery disease) Chronic heart failure with reduced ejection fraction and diastolic dysfunction GERD (gastroesophageal reflux disease) Surgical History History of surgery Hx of cystoscopy H/O hemorrhoidectomy Stented coronary artery Hx of colonoscopy Family History Father Diabetes HTN (hypertension) Mother Diabetes HTN (hypertension) Sister Throat cancer Family/Other Colon cancer Social History Household Members: None Housing: Apartment Are you a primary emergency care attendant to a significant other at home: No Do you presently have visiting nurse or other home services: No Alcohol intake: never Comment: sleeping Patient Tobacco Use Status: Current everyday Tobacco user Tobacco use type: Cigarette Cigarette Packs Per Day: 2 Cigarettes Per Day: 40.0 Years Smoked: 38 e-Cigarette/Vaping Use: Never Used Second Hand Smoke Exposure: Yes Substance Use Type: Marijuana Advance Directives Date on File: 04/26/21 service: No Current occupational status: unemployed and disabled Sexual orientation: Straight/Heterosexual Review of Systems Const Denies fatigue, Denies fever(s), Denies night sweats, Denies poor appetite and Denies weight loss Eyes Reports requires corrective lenses ENT Reports Normal hearing present, Denies dental pain, Denies dysphagia, Denies hearing loss, Denies mouth pain, Denies odynophagia, Denies throat swelling, Denies tongue swelling and Reports other (Dentition adequate) GI Details: Denies abdominal pain, Denies melena, Denies bloating, Denies hematochezia, Denies constipation, Denies GI cramping, Denies dysphagia, Denies excessive flatus, Denies early satiety, Denies heartburn, Denies diarrhea, Denies nausea, Denies odynophagia, Denies vomiting and Denies hematemesis Skin/Breast Denies pruritus, Denies lesions, Denies rash and Denies jaundice Neuro Reports Normal hearing present and Denies Abnormal speech present Endo Denies fatigue Aller/Immun Denies throat swelling and Denies tongue swelling Physical Exam Vital Signs: Last Vital Signs Pulse 87 04/02/25 14:17 BP 115/79 04/02/25 14:17 BMI result Body Mass Index 17.3 Const General: cooperative, no acute distress, well developed and well groomed Nutritional Appearance: well nourished, obese and overweight Orientation/consciousness: oriented to person, oriented to place and oriented to time Limitations: No language barrier, ambulation with cane, ambulation with walker and wheelchair HEENT Head: Yes normocephalic and Yes atraumatic Eyes General: appearance normal, both eyes and all related structures Pupils: Equal, round and reactive pupils present Neck Neck: Yes normal visual inspection and Yes no lymphadenopathy Thyroid: Thyroid normal Resp Effort & Inspection: normal respiratory effort and able to speak in complete sentences Auscultation: clear to auscultation bilaterally Cardio Rate: regular rate Rhythm: regular rhythm Heart sounds: Normal, physiologic split S2 sound present Peripheral pulses: radial pulses present and posterior tibial pulses present GI Inspection: No distended and No Abdominal panniculus present Palpation (GI): Soft to palpation, nontender, no guarding, not rigid, No hepatosplenomegaly present and Hepatosplenomegaly present Percussion: Yes normal to percussion Auscultation: normal bowel sounds Rectal Exam - Female: deferred Skin General skin exam: no rashes or lesions noted, turgor normal, skin not dry, no jaundice, No spider nevi and no striae Rashes: no rashes Nails: normal Neuro General: oriented to person, oriented to place and oriented to time Cranial nerves: Yes Equal, round and reactive pupils present and Yes Normal hearing present Speech: No Abnormal speech present Extrem General: Yes normal to inspection, No clubbing, No cyanosis and No edema Psych Thought process: Normal thought process present and not confabulating Thought content: Normal thought content present Insight: Good insight present (Psych) Judgement: Good judgement present (Psych) Assessment & Plan Assessment & Plan (1) Encounter for colorectal cancer screening using Cologuard test: Code(s): Z12.11 - Encounter for screening for malignant neoplasm of colon; Z12.12 - Encounter for screening for malignant neoplasm of rectum Category: Medical (2) Hemorrhoids: Code(s): K64.9 - Unspecified hemorrhoids Category: Medical Plan It appears that the Cologuard test was never ordered by our office. In the interim she is experiencing increased trouble with hemorrhoids without noting any associated constipation. She has never used any prescription treatments for this so I suggest we do a trial of Proctosol cream and then re-evaluate her before considering something like surgery. Return office visit in 6 weeks Medications: New hydrocortisone 2.5% (Proctosol HC) BE SURE TO INCLUDE RECTAL APPICATOR!! 1 appl [place] BID 30 grams 6RF hemorrhoids K64.9 - Unspecified hemorrhoids Coding Level of Care Code Est Pt Level 3 (39885) Diagnoses Encounter for colorectal cancer screening using Cologuard test Z12.11; Z12.12 Hemorrhoids K64.9
[2025-04-02 14:17] VITALS: BP 115/79; PULSE 87; BMI 17.3
--- OUTSIDE RECORDS SUMMARY | 2025-04-02 15:59 | XMS_ITS | Clinical Summary ---
Author Organization [employer] Address [address] [address] Care Team Providers Care Grease Press Helper Name Role Phone Kianna Nunez MD Primary Care Provider [phone] Allergies Active Allergy Reactions Criticality Noted Date [...] BY MOUTH AT BEDTIME 90 tablet 1 01/08/20 25 Active isosorbide mononitrate ER (Imdur) [...] MOUTH EVERY MORNING 90 tablet 1 03/09/20 Active dexAMETHasone (Decadron) 1 MG tablet Take 1 tablet by mouth Once per day. 02/13/20 Active Bisacodyl EC 5 MG EC tablet TAKE 2 TABLETS BY MOUTH AT BEDTIME FOR 2 DAYS 02/06/20 Active PEG 7294-ITz-GfAkr-Na Cl-NaSulf (PEG-3350/Electro lytes) 236 g reconstituted solution MIX WITH WATER AND DRINK 240 ML BY MOUTH EVERY 10 MINUTES UNTIL FECAL EFFLUENT IS CLEAR. NO MORE THAN 1/2 BOTTLE 02/06/20 Active gabapentin (Neurontin) 100 MG capsule Take 1 capsule (100 mg) by mouth 3 times daily. 90 capsule 1 03/30/20 25 Active FLUoxetine (PROzac) 20 MG capsuleIndication [...] treatment as needed. Dementia with mood disturbance (CMS/HCC) 024 Cognitive and behavioral changes 04/09/2024 Assessment & Plan (05/06/2024 9:07 AM EST): Referral to for further evaluation. Called and was made an appt to be seen via telemedicine by psych provider. Also was informed of locations she was referred for therapy and information given to granddaughter/STRAPPING MACHINE OPERATOR. Assessment & Plan (04/09/2024 11:16 AM EST): [...] and I will also send her to emergency department clinician. Labs: CBC, Comprehensive Metabolic Panel, Lipid panel, [...] is to refer patientfor OP individual therapy. [facility] crisis line number provided. At [...] for her to decrease symptoms c. Contact [facility] crisis line if needed (information and number provided) Acute kidney injury superimposed on CKD 11/15/19 23 Acute pyelonephritis 11/14/2022 Anemia 11/14/2022 E coli [...] is to refer patientfor OP individual therapy. [facility] crisis line number provided. At [...] for her to decrease symptoms c. Contact [facility] crisis line if needed (information [...] conditions and will benefit of nutrition supplementation. Stage 5 chronic kidney disease (CMS/HCC) 021 Gastroesophageal reflux disease 01/23/2018 Anemia due [...] BP medication when she gets back to [place] today. -Seek medical attention if she has concerns. -Medication reconciliation with pharmacy was done today. Asthma 11/06/2011 Nephrolithiasis 11/06/2011 Tobacco user 09/13/2011 Resolved Problems Problem Noted Date Diagnosed Date Resolved Date Physical exam 08/22/2023 04/09/2024 Encounter for health-related screening 05/01/2023 04/09/2024 Assessment & Plan (05/01/2023 2:24 PM EST): -Labs: HIV-1/2, Hep. C-Ab. Encounters Date Type Department Care Team Description 03/30/2025 10:00 AM EDT Office Visit [facility] [address] [place] [address] Kianna Nunez MD Primary hypertension (Primary Dx); Pain; Encounter for immunization; Encounter for vaccination 03/30/2025 Travel 03/27/2025 Telephone [facility] [address] [place] [address] Kianna Nunez MD Chart Prep 03/23/2025 Orders Only GENERIC EXTERNAL DATA DEPARTMENT Provider, Generic External Data 03/11/2025 Telephone [facility] [address] [place] [phone] Kianna Nunez MD 03/08/2025 Refill [facility] [address], [place] [phone] Lara Alanis MD Anxiety; Chronic heart failure, unspecified heart failure type (HCC) 02/27/2025 Telephone [facility] [address] [place] [phone] Nutrition referral 02/20/2025 Telephone [facility] [address] [place] [address] Kianna Nunez MD call back needed 02/10/2025 [facility] [address], [place] [phone] Kianna Nunez MD US BREAST ORDER 02/05/2025 Refill [facility] [address], [place] [phone] Kianna Nunez MD 02/03/2025 Refill [facility] [address] [place] [address] Lara Alanis MD Failure to thrive in adult 01/28/2025 Orders Only [facility] [address] [place] [address] Chacho Romero MD 01/27/2025 Telephone [facility] [address] [place] [address] Kianna Nunez MD 01/23/2025 Telephone [facility] [address] [place] [address] Kianna Nunez MD Referral 01/22/2025 2:30 PM EDT Office Visit [facility] [address] [place] [address] Kianna Nunez MD Mass of lower outer quadrant of right breast (Primary Dx); Dysuria 01/22/2025 Travel 01/14/2025 Telephone [facility] [address] [place] [address] Kinana Nunez MD chart prep 01/12/2025 Telephone [facility] [address] [place] [address] Kianna Nunez MD Durable Medical Equipment 01/07/2025 Refill [facility] [address] [place] [address] Lara Alanis MD 01/07/2025 Refill [facility] [address] [place] [address] Kianna Nunez MD 01/06/2025 Refill [facility] [address] [place] [address] Lara Alanis MD Hyperlipidemia, unspecified hyperlipidemia type; Chronic heart failure, unspecified heart failure type (CMS/HCC); Gastroesophageal reflux disease, unspecified whether esophagitis present 01/05/2025 Telephone [facility] [address] [place] [address] Kianna Nunez MD No Show 12/31/2024 Results Follow-Up [facility] [address] [place] [address] Kianna Nunez MD Lipid Panel, Standard, TSH W/Reflex to FT4, Lactate Dehydrogenase (LD), Additional followed-up results: 5 from Last 3 Months Immunizations Immunization Administration Dates Next Due Hep B, adult 12/19/2024,02/02/2006 Influenza High-dose Quadriva lent Preservative Free 03/16/2023,02/20/2022,03/02/2021,05/17 Influenza injectable quadriv alent IIV4 with preservative 08/02/2017,04/20/2016 Influenza injectable quadriv alent preservative free 04/02/2019,05/30/2018,03/05/2017 Influenza, High Dose Seasona l, Preservative Free 03/30/2025,02/22/2024 Influenza, IIV3, injectable 02/10/2014 Influenza, Split (incl. sydnee fied surface antigen) 05/06/2012 Influenza, Unspecified 02/20/2022,2020,05/17/2020,02/10 Pfizer Covid-19 Vaccine 12+ 03/30/2025,,08/22/2023 Pneumococcal Conjugate PCV 20 07/03/2022 Pneumococcal Polysaccharide [...] Mass Index 20.17 03/30/2025 9:46 AM EDT Plan of Treatment Upcoming Encounters Date Type Department Care Team (Late st Contact Info) Description 04/07/2025 3:00 PM EST Clinical Support [facility] [address] [place] [address] 06/29/2025 2:30 PM EST Office Visit [facility] [address] [place] [address] Carmen Jenni, OD [address] [place] [address] Health Maintenance Due Date Last Done Comments CT Colonography 1955 Colonoscopy 1955 Colorectal Cancer Screening 1955 Dental Oral Exam 1955 FIT DNA/Cologuard 1955 FIT 1955 FOBT 1955 Sigmoidoscopy 1955 RSV Patients and Patients Aged 60 years or older (1 - Risk 60-74 years 1-dose series) 2014 Mammogram 01/10/2021 01/10/2019, 12/24/2017 Dental Prophylaxis 07/26/2023 01/22/2023 Dental X-Ray: Bitewings 01/24/2024 01/22/2023 Hepatitis B Vaccines (3 of 3 - 19+ 3-dose series) 02/13/2025 12/19/2024, 02/02/2006 SDOH Screening 11/04/2025 11/04/2024 DTaP/Tdap/Td Vaccines (2 - Td or Tdap) 12/13/2025 12/14/2015, 08/13/2006 Depression Screening 12/19/2025 12/19/2024, 12/20/19 Dental X-Ray: Full Mouth 01/23/2026 01/22/2023 Alcohol/Substance Use Screening 03/30/2026 03/30/2025 Tobacco Screening 03/30/2026 03/30/2025 Lipid Panel 12/31/2029 12/31/2024, 12/0 11/2023, 08/21/2022, Additional history exists Pneumococcal Vaccine: 50+ Years Completed 07/03/2022, 10/11/2015, 08/10/2007 Zoster Vaccines Discontinued 07/03/2022, 06/06, 12/14/2015 Hepatitis C Screening Completed 05/09/2024 COVID-19 Vaccine Completed 03/30/2025, 11/2023, 08/22/2023, Additional history exists Influenza Vaccine Completed 03/30/2025, , 03/16/2023, Additional history exists HIB Vaccines Aged Out No longer eligi [...] Procedure Name Priority Date/Time Associated Diagnosis Comments METANEPHRINES, FRACT, FREE, LC/MS/MS, PLASMA Routine 03/23/2025 8:14 AM EDT VITAMIN B12/FOLATE, SERUM PANEL Routine 03/23/2025 8:14 AM EDT CORTISOL RANDOM Routine 03/23/2025 8:14 AM EDT TSH W/REFLEX TO FT4 Routine 03/23/2025 8 :14 AM EDT BASIC METABOLIC PANEL Routine 03/23/2025 8:14 AM EDT HIV 1/2 ANTIGEN/ANTIBODY, FOURTH GENERATION W/RFL Routine 03/23/2025 8:14 AM EDT Failure to thrive in adult NM KIDNEY FLOW/FUNCTION W PHARMACOLOGICAL INTERVENTION Routine [...] Relevant to Health Maintenance Results * (ABNORMAL) Metanephrines, Fractionated, Free, LC/MS/MS, Plasma (03/23/2025 8:14 AM EDT) Metanephrine, Free 59(A) <=57 pg/mL [facility] Comment:This test was develo ped and its analytical performancecharacteristics have been determined by [employer] [place], [place]. It hasnot been cleared or approved by the U.S. Food and DrugAdministration. This assay has been validated pursuantto the CLIA regulations and is used for clinicalpurposes. Normetanephrine, Free 383(A) <=148 pg/mL [facility] Comment:This test was develo ped and its analytical performancecharacteristics have been determined by [employer] [place], [place]. It hasnot been cleared or approved by the U.S. Food and DrugAdministration. This assay has been validated pursuantto the CLIA regulations and is used for clinicalpurposes. Total, Free (MN+NMN) 442(A) <=205 pg/mL [facility] Comment: For additional information, please refer tohttp://education.Tuniu/faq/MetFractFree(This link is being provided for informational/educatioinformational/educational purposes only.)Elevations >4-fold upper reference range: stronglysuggestive of a pheochromocytoma(1).Elevations >1- 4-fold upper reference range:significant but not diagnostic, may be due tomedications or stress. Suggest running 24 hr urinefractionated metanephrines and/or serum Chromagranin Afor confirmation.Reference:(1)Biju Candelaria et al, Plasma Chromogranin Aor Urine Fractionated Metanephrines Follow-Up TestingImproves the Diagnostic Accuracy of Plasma FractionatedMetanephrines for Pheochromocytoma. The Journal ofClinical Endocrinology # Metabolism 93(1), 91-95, 2007.This test was developed and its analytical performancecharacteristics have been determined by [employer], [place]. It hasnot been cleared or approved by the U.S. Food and DrugAdministration. This assay has been validated pursuantto the CLIA regulations and is used for clinicalpurposes.THIS TEST WAS PERFORMED AT:[employer] [place] [id number] CHRISTOPHER MD,PHD 03/23/2025 8:14 AM EDT 03/23/2025 11:01 AM EDT us Generic External Data Provider LAB BLOOD ORDERAB LES Final Result [facility] [address] [place] [phone] * Cortisol Random (03/23/2025 8:14 AM EDT) Cortisol Random 17.0 ug/dL [facility] Comment:Reference Range*: Be fore 10 am 6.2-19.4 ug/dL After 5 pm 2.3-11.9 ug/dL*Please interpret above results accordingly.This test was performed using the Swrve chemiluminescentmethod. Values obtained from different assay methods cannotbe used interchangeably.Patients receiving fludrocortisone, prednisolone orprednisone may show artificially elevated cortisol valuesdue to cross-reactivity. 03/23/2025 8:14 AM EDT 03/23/2025 11:01 AM EDT us Generic External Data Provider LAB BLOOD ORDERAB LES Final Result Performing Organization Address [facility] Co de Phone Number [facility] [address] [place] [phone] * Vitamin B12 (Cobalamin) and Folate Panel, Serum (03/23/2025 8:14 AM EDT) Only the most recent of2 resultswithin the time period is included. Vitamin B12 307 200 - 900 pg/mL [facility] Comment:NORMAL 200-900 PG/ML INDETERMINATE 160-199 PG/ML DEFICIENT < 160 PG/ML Folate 13.0 > or = 4.0 ng/mL [facility] Comment:Reference Values:> o r = 4.0 ng/mL< 4.0 ng/mL suggests folate deficiency Methotrexate, aminopterin and folinic acid(leucovorin) are chemotherapeutic agents whose molecularstructures are similar to folate; therefore, the Architectfolate assay cannot be used for patients using these drugs. 03/23/2025 8:14 AM EDT 03/23/2025 11:05 AM EDT us Kianna Nunez MD LAB BLOOD ORDERABLES Final Re sult Performing Organization Address [facility] Co de Phone Number [facility] [address] [place] [phone] * TSH with Reflex to Free T4 (03/23/2025 8:14 AM EDT) Only the most recent of2 resultswithin the time period is included. TSH reflex Free T4 1.78 0.32 - 4.0 uIU/mL [facility] 03/23/2025 8:14 AM EDT 03/23/2025 11:01 AM EDT us Kianna Nunez MD LAB BLOOD ORDERABLES Final Re sult Performing Organization Address [facility]/ZIP Co de Phone Number [facility] [address] [place] [phone] * HIV-1/2 Antigen and Antibodies, Fourth Generation, with Reflexes (03/23/2025 8:14 AM EDT) Only the most recent of2 resultswithin the time period is included. Pathologist [facility] HIV AB/AG Nonreactive Nonreactive [facility] Comment:HIV-1 p24 Ag and/or HIV-1/HIV-2 Ab not detected.A test result that is nonreactive does not exclude thepossibility of exposure to or infection with HIV-1 and/orHIV-2. Nonreactive results in this assay for individualswith prior exposure to HIV-1 and/or HIV-2 may be due toantigen and antibody levels that are below the limit ofdetection of this assay.The [employer] HIV Ag/Ab Combo assay result andsupplemental assay results should be interpreted inconjunction with the patient's clinical presentation,history and other laboratory results. If the results areinconsistent with clinical evidence, additional testing issuggested to confirm the result. Blood Venous blood specimen / Unknown 03/23/2025 8:14 AM EDT 03/23/2025 11:01 AM EDT us Kianna Nunez MD LAB BLOOD ORDERABLES Final Re sult Performing Organization Address [facility]/ZIP Co de Phone Number [facility] [address] [place] [phone] * (ABNORMAL) Basic Metabolic Panel (03/23/2025 8:14 AM EDT) Pathologist [facility] Sodium 146(H) 135 - 145 mmol/L [facility] Potassium 4.6 3.3 - 5.1 mmol/L [facility] Chloride 113(H) 96 - 108 mmol/L [facility] Carbon Dioxide 24 22 - 29 mmol/L [facility] Anion Gap 14 12 - 20 [facility] Urea Nitrogen (BUN) 48(H) 9 - 16 mg/dL [facility] Creatinine, Serum 3.33(H) 0.5 - 1.4 mg/dL [facility] Estimated Glomerular Filt Rate 14 [facility] Comment:Chronic Kidney Disea se: Estimated GFR < 60 mL/min/1.40i7Ydtdos Kidney Disease: Estimated GFR < 15 mL/min/1.73m2 Glucose 94 60 - 115 mg/dL [facility] Calcium 8.7 8.4 - 10.2 mg/dL [facility] 03/23/2025 8:14 AM EDT 03/23/2025 11:01 AM EDT us Generic External Data Provider LAB BLOOD ORDERAB LES Final Result Performing Organization Address City/State/[facility] Co de Phone Number [facility] [address] [place] [phone] * NM Kidney Flow/Function w/ Pharmacological Intervention (02/26/2025 10:59 AM EDT) Anatomical Region Laterality Modality Body Nuclear Medicine 02/26/2025 10:5 9 AM EDT Narrative 02/26/2025 1:35 PM EDT [address] [address] Nuclear Medicine Report Signed Patient: Georgiana Earl MR#: [id number] 28 : 1955 Acct:[id number] Age/Sex: 69 / F ADM Date: 02/26/25 Loc: [facility] Attending Dr: Paul Rose MD Ordering Physician: Paul Rose MD Date of Service: 02/26/25 Procedure(s): NM renal flow w pharm int Accession Number(s): [id number] cc: Paul Rose MD; Kianna Nunez MD [...] 02/26/25 1332 DD/ 1059 TD/TT: 02/26/25 1230 Waste Machine Tender: Procedure Note Donotuseinterpreter, Image - 02/26/2025 [place] [address] Nuclear Medicine Report Signed Patient: Georgiana Earl#: [id number] 28 : 1955cct:[id number] Age/Sex: 69 / FADM Date: 02/26/25 Loc: [facility] Attending Dr: Paul Rose MD Ordering Physician: Paul Rose MD Date of Service: 02/26/25 Procedure(s): NM renal flow w pharm int Accession Number(s): [id number] cc: Paul Rose MD; Kianna Nunez MD [...] 02/26/25 1332 DD/ 1059 TD/TT: 02/26/25 1230 Waste Machine Tender: [facility] External Provider ELYSIA NM PROCEDURES Final Result * PET/CT Bone Skull Base to Mid Thigh (01/27/2025 3:26 PM EDT) Anatomical Region Laterality Modality Body Computed Tomogra phy Historical Provider MD NAIDU CT PROCEDURES Final R esult * Culture, Urine, Routine (01/22/2025 2:39 PM EDT) Urine Urine specimen obtained by clean catch procedure / Unknown 01/22/2025 2:39 PM EDT 01/22/2025 5:34 PM EDT Comment:UACC Narrative [facility] - 01/24/2025 7:57 AM EDT Escherichia [...] Final Result Performing Organization Address [facility] de Phone Number [facility] [address] [place] [address] [phone] * (ABNORMAL) POCT urinalysis dipstick manually [...] Appearance, UA clear QC Media Lot # Comment:[id number] Lot# Expiration Date Comment:03/03/2025 Urine 01/22/2025 2:33 PM EDT Kianna Nunez MD POINT OF CARE TEST ENTER/EDIT ORDERABLES Final Result * Syphilis Screen (12/31/2024 11:02 AM EDT) Syphilis Screen Nonreactive Nonreactive [facility] Blood 12/31/2024 11:0 2 AM EDT 12/31/2024 1:19 PM EDT Kianna Nunez MD LAB BLOOD ORDERABLES Final Re sult Performing Organization Address [facility] Co de Phone Number [facility] [address] [place] [phone] * Lyme Disease Ab with Reflex to Blot (IgG, IgM) (12/31/2024 11:02 AM EDT) [facility] Lyme Antibody Screen <0.90 index [facility] Comment:Index Interpretation ----- < 0.90 Negative [...] when erythemamigrans is apparent.THIS TEST WAS PERFORMED AT:[employer] [place] [id number] MCLAUGHLIN MD Lyme Blot [facility] 12/31/2024 11:0 2 AM EDT 12/31/2024 1:19 PM EDT us Kianna Nunez MD LAB BLOOD ORDERABLES Final Re sult [facility] [address] [place] [phone] * (ABNORMAL) CBC auto differential (12/31/2024 11:02 AM EDT) [facility] White Blood Count 5.5 4.8 - 10.8 X10*3/uL [facility] Red Blood Count 3.69(L) 4.20 - 5.50 X10*6/uL [facility] Hemoglobin 11.1(L) 12.0 - 16.0 g/dl [facility] Hematocrit 34.1(L) 37.0 - 47.0 % [facility] Mean Corpuscular Volume 92.4 80.0 - 98.0 fL [facility] Mean Corpuscular Hemoglobin 30.1 27.0 - 33.0 pg [facility] Mean Corpuscular HGB Conc 32.6 31.0 - 35.0 g/dl [facility] Red Cell Distribution Width 15.9 11.0 - 16.0 % [facility] Platelet Count 252 160 - 400 X10*3/uL [facility] Mean Platelet Volume 9.9 9.4 - 12.3 fL [facility] Neutrophils Percent Auto 59.2 45 - 73 % [facility] Imm Gran Pct Auto 0.2 0.0 - 0.4 % [facility] Lymphocytes Percent Auto 28.5 20 - 40 % [facility] Monocytes Percent Auto 7.4 2 - 11 % [facility] Eosinophils Percent Auto 3.4 0 - 4 % [facility] Basophils Percent Auto 1.3 0 - 2 % [facility] NRBC Pct Auto 0.0 0.0 - 0.2 /100WBC [facility] Neutrophils Absolute Auto 3.3 2.0 - 8.3 x10*3/uL [facility] Imm Gran Abs Auto 0.01 0.00 - 0.03 X10*3/uL [facility] Lymphocytes Absolute Auto 1.6 1.2 - 4.9 X10*3/uL [facility] Monocytes Absolute Auto 0.4 0.1 - 1.2 X10*3/uL [facility] Eosinophils Absolute Auto 0.2 0.0 - 0.4 X10*3/uL [facility] Basophils Absolute Auto 0.1 0.0 - 0.2 X10*3/uL [facility] NRBC Abs Auto 0.000 0.0 - 0.012 X10*3/uL [facility] Blood Venous blood specimen / Unknown 12/31/2024 11:02 AM EDT 12/31/2024 1:19 PM EDT us Kianna Nunez MD LAB BLOOD ORDERABLES Final Re sult [facility] [address] [place] [phone] * Iron And Total Iron Binding Capacity (12/31/2024 11:02 AM EDT) Pathologist [facility] Iron 86 30 - 160 mcg/dL [facility] Total Iron Binding Capacity 274 228 - 428 mcg/dL [facility] Percent Iron Saturation 31 15 - 50 % [facility] Unsaturated Iron Binding 188 ug/dL [facility] Blood Venous blood specimen / Unknown 12/31/2024 11:02 AM EDT 12/31/2024 1:19 PM EDT us Kianna Nunez MD LAB BLOOD ORDERABLES Final Re sult Performing Organization Address [facility] [address] [place] [phone] * RPR (Monitor) with Reflex to??Titer (12/31/2024 11:02 AM EDT) Pathologist [facility] RPR (Monitor) w/Refl Titer NON-REACTI VE NON-REACT FAUSTINO [facility] Comment:THIS TEST WAS PERFOR MED AT:[employer] [place] [id number] MCLAUGHLIN MD Rapid Plasma Reagin Ab Titer TNP [facility] Blood Venous blood specimen / Unknown 12/31/2024 11:02 AM EDT 12/31/2024 1:19 PM EDT us Kianna Nunez MD LAB BLOOD ORDERABLES Final Re sult Performing Organization Address [facility] de Phone Number [facility] [address] [place] [phone] * Sed Rate by Modified Guillermoergren (12/31/2024 11:02 AM EDT) [facility] Erythrocyte Sedimentation Rate 13 0 - 20 MM/HR [facility] Comment:Patients with polycy themia and many hemoglobin abnormalitiesmay have depressed sed rates whereas patients with anemiamay have elevated sed rates. Blood Venous blood specimen / Unknown 12/31/2024 11:02 AM EDT 12/31/2024 1:19 PM EDT us Kianna Nunez MD LAB BLOOD ORDERABLES Final Re sult Performing Organization Address [facility] Co de Phone Number [facility] [address] [place] [phone] * C-reactive Protein (12/31/2024 11:02 AM EDT) C Reactive Protein <0.04 < or = 0.50 mg/dL [facility] Blood Venous blood specimen / Unknown 12/31/2024 11:02 AM EDT 12/31/2024 1:19 PM EDT us Kianna Nunez MD LAB BLOOD ORDERABLES Final Re sult Performing Organization Address [facility] de Phone Number [facility] [address] [place] [phone] * (ABNORMAL) Lactate Dehydrogenase (LD) (12/31/2024 11:02 AM EDT) Lactate Dehydrogenase 257(H) 122 - 220 U/L [facility] Blood Venous blood specimen / Unknown 12/31/2024 11:02 AM EDT 12/31/2024 1:19 PM EDT us Kianna Nunez MD LAB BLOOD ORDERABLES Final Re sult Performing Organization Address [facility] de Phone Number [facility] [address] [place] [phone] * Ferritin (12/31/2024 11:02 AM EDT) Ferritin 48 10 - 250 ng/mL [facility] Blood Venous blood specimen / Unknown 12/31/2024 11:02 AM EDT 12/31/2024 1:19 PM EDT us Kianna Nunez MD LAB BLOOD ORDERABLES Final Re sult Performing Organization Address [facility] Co de Phone Number [facility] [address] [place] [address] [phone] * Lipid Panel, Standard (12/31/2024 11:02 AM EDT) Triglycerides 71 <150 mg/dL [facility] Comment:Desirable Triglyceri de: less than 150 mg/dLBorderline High Triglyceride 150-199 mg/dLHigh Triglyceride: 200-499 mg/dLVery High Triglyceride: greater than or equal to 5OO mg/dL Cholesterol 147 <200 mg/dL [facility] Comment:Desirable Cholestero l: less than 200 mg/dLBorderline High Cholesterol: 200-239 mg/dLHigh Cholesterol: greater than 239 mg/dL LDL Cholesterol Calculated 64 <100 mg/dL [facility] Comment:Desirable LDL: less than 100 mg/dLNear Optimal/Above Optimal LDL: 110- 129 mg/dLBorderline High LDL: 130-159 mg/dLHigh LDL: 160-189 mg/dLVery High LDL: greater than or equal to 190 mg/dL HDL Cholesterol 69 >40 mg/dL [facility] Comment:Desirable HDL: great er than 40 mg/dL Note: This HDL assay may give artificially low results in patients with liver disease. Blood Venous blood specimen / Unknown 12/31/2024 11:02 AM EDT 12/31/2024 1:19 PM EDT Kianna Nunez MD LAB BLOOD ORDERABLES Final Re sult Performing Organization Address [facility]/ZIP Co de Phone Number [facility] [address] [place] [address] [phone] * (ABNORMAL) Comprehensive Metabolic Panel (12/31/2024 11:02 AM EDT) Sodium 145 135 - 145 mmol/L [facility] Potassium 3.9 3.3 - 5.1 mmol/L [facility] Chloride 112(H) 96 - 108 mmol/L [facility] Carbon Dioxide 24 22 - 29 mmol/L [facility] Anion Gap 13 12 - 20 [facility] Urea Nitrogen (BUN) 38(H) 9 - 16 mg/dL [facility] Creatinine, Serum 2.84(H) 0.5 - 1.4 mg/dL [facility] Estimated Glomerular Filt Rate 16 [facility] Comment:Chronic Kidney Disea se: Estimated GFR < 60 mL/min/1.53o1Enmezo Kidney Disease: Estimated GFR < 15 mL/min/1.73m2 Glucose 96 60 - 115 mg/dL [facility] Calcium 9.2 8.4 - 10.2 mg/dL [facility] Bilirubin, Total 0.5 0.0 - 1.0 mg/dL [facility] Aspartate Amino Transferase 23 5 - 31 U/L [facility] Alanine Aminotransferase 14 0 - 31 U/L [facility] Total Protein 7.6 6.5 - 8.0 g/dL [facility] Albumin Level 4.4 3.5 - 5.0 g/dL [facility] Alkaline Phosphatase 70 39 - 117 U/L [facility] Blood Venous blood specimen / Unknown 12/31/2024 11:02 AM EDT 12/31/2024 1:19 PM EDT us Kianna Nunez MD LAB BLOOD ORDERABLES Final Re sult [facility] [address] [place] [address] [phone] * Hepatitis C Antibody with Reflex to HCV, RNA, Quantitative, Real-Time PCR (05/09/2024 2:01 PM EST) Hepatitis C Antibody Nonreactive Nonreactive [facility] Comment:Antibodies to HCV no t detected; does not exclude early acuteHCV infection. Blood Venous blood specimen / Unknown 05/09/2024 2:01 PM EST 05/09/2024 3:54 PM EST us Kianna Nunez MD LAB BLOOD ORDERABLES Final Re sult [facility] [address] [place] [address] [phone] * DIGITAL BILATERAL SCREEN 1 (01/10/2019 [...] DIGITAL BILATERAL SCREEN 1 us Jose Syed TANK HOOP BENDER IMG BI PROCEDURES Final Result from Last 3 Months or Most Recently Relevant to Health Maintenance [facility] Care Teams Grease Press Helper Relationship Specialty Start Date End Date Kianna Nunez MD [address] [place] [address] PCP - General Family Medicine 02/02/20 Kleber Liu MD Compound Machine Operator 06/04/04 Anaya Parikh OD Optometry 04/09/24 Dorian Edouard Informatics Application Analyst 06/04/04 [facility] Lead Fabricator 04/09/24
--- OUTSIDE RECORDS SUMMARY | 2025-04-02 15:59 | XMS_ITS | Encounter Summary ---
Author Organization [employer] Address [address] 7[address] [place] [address] Care Team Providers Care Criminology Professor Name Role Phone Kianna Nunez MD Primary Care Provider [phone] Reason for Visit * Reason Onset Date Comments Pre-op Exam 11/15/2023 Encounter Details Date Type Department Care Team ([facility] st Contact Info) Description 11/15/2023 Telephone [facility] MED & PEDS [address] [place] [address] Kianna Nunez MD [address] [place] [address] Pre-op Exam Social History Tobacco Use Types [...] with others, in a hotel, in a intermediate, living outside on the street, on a [...] no Surgeon's name: Dr. Agustin Facility name: [facility] Surgeon's office number: [phone] ext [phone] Surgeon's office fax number: [phone] Contact name (person you spoke with): Kelli Last office note from surgeon requested: Pre-Op notes documented in this encounter Plan of Treatment Upcoming Encounters Date Type Department Care Team (Late st Contact Info) Description 04/07/2025 3:00 PM EST Clinical Support [facility] MED & PEDS [address] [place] [address] 06/29/2025 2:30 PM EST Office Visit [facility] OPTOMETRY [address] [place], [place] [phone] Jenni Morales, OD [address] [place] [address] documented as of this encounter Visit Diagnoses Not on filedocumented in this encounter Additional Health Concerns Assessment Noted Time PHQ-9 Depression Total Score: 0 05/01/20 23 2:20 PM EST documented as of this encounter Care Teams Criminology Professor Relationship Specialty Start Date End Date Kianna Nunez MD [address] [place] [address] PCP - General Family Medicine 02/02/20 Kleber Liu MD Strategic Planning Director 06/04/04 Anaya Parikh OD Optometry 04/09/24 Dorian Edouard Whitewater Rafting Guide 06/04/04 [employer] [facility] Sample Coordinator 04/09/24 documented as of this encounter
--- OUTSIDE RECORDS SUMMARY | 2025-04-02 15:59 | XMS_ITS | Encounter Summary ---
Author Organization [facility] Address [address] 7t [place] [address] Care Team Providers Care Finance Executive Name Role Phone Kianna Nunez MD Primary Care Provider [phone] Encounter Details Date Type Department Care Team (Late st Contact Info) Description 01/28/2025 Orders Only [facility] [address] [place], [place] [phone] ProviderChacho MD Social History Tobacco Use Types Packs/Day Years [...] Description 04/07/2025 3:00 PM EST Clinical Support [facility] MED & PEDS [address] [place] [address] 06/29/2025 2:30 PM EST Office Visit [facility] OPTOMETRY [address] [place], [place] [phone] TarkaJenni, OD [address] [place], [place] [phone] documented as of this encounter Procedures Procedure [...] AM EDT Narrative 02/26/2025 1:35 PM EDT [address] [address] Nuclear Medicine Report Signed Patient: Georgiana Earl MR#: [id number] 28 : 1955 Acct:[id number] Age/Sex: 69 / F ADM Date: 02/26/25 Loc: [facility] Attending Dr: Paul Rose MD Ordering Physician: Paul Rose MD Date of Service: 02/26/25 Procedure(s): NM renal flow w pharm int Accession Number(s): [id number] cc: Paul Rose MD; Kianna Nunez MD [...] 02/26/25 1332 DD/ 1059 TD/TT: 02/26/25 1230 Rn Medical Surgical: Procedure Note Donotuseinterpreter, Image - 02/26/2025 [place] [address] Nuclear Medicine Report Signed Patient: Desirae Earl#: [id number] 28 : 1955cct:[id number] Age/Sex: 69 / FADM Date: 02/26/25 Loc: [facility]JulianMILLIERICHARDSON Attending Dr: Paul Rose MD Ordering Physician: Paul Rose MD Date of Service: 02/26/25 Procedure(s): NM renal flow w pharm int Accession Number(s): [id number] cc: Paul Rose MD; Kianna Nunez MD [...] 02/26/25 1332 DD/ 1059 TD/TT: 02/26/25 1230 Rn Medical Surgical: [facility] External Provider IMG NM PROCEDURES Final [...] documented as of this encounter Care Teams Finance Executive Relationship Specialty Start Date End Date Kianna Nunez MD [address] [place] [address] PCP - General Family Medicine 02/02/20 Kleber Liu MD Svp Of Digital 06/04/04 Anaya Parikh OD Optometry 04/09/24 Dorian Edouard Dietitian Teacher 06/04/04 [facility] Chemist Physical 04/09/24 documented as of this encounter
--- OUTSIDE RECORDS SUMMARY | 2025-04-02 15:59 | XMS_ITS | Encounter Summary ---
Author Organization [facility] Address [address] 7t [place] [address] Care Team Providers Care Jewelry Internship Name Role Phone Kianna Nunez MD Primary Care Provider [phone] Encounter Details Date Type Department Care Team (Latest Contact Info) Description 03/30/2025 Travel Social History Tobacco Use Types Packs/Day [...] t he electric, gas, oil or water [employer] threatened to shut off services in your [...] Description 04/07/2025 3:00 PM EST Clinical Support [facility] CHC MED & PEDS [address] [place] [address] 06/29/2025 2:30 PM EST Office Visit [facility] OPTOMETRY [address] [place] [address] Jenni Morales OD [address] [place] [address] documented as of this encounter Visit Diagnoses Not on filedocumented in this encounter Additional Health Concerns Assessment Noted Time PHQ-9 Depression Total Score: 7 12/20/19 25 9:35 AM EDT documented as of this encounter Care Teams Jewelry Internship Relationship Specialty Start Date End Date Kianna Nunez MD [address] [place] [address] PCP - General Family Medicine 02/02/20 Kleber Liu MD Concrete Conveyor Operator 06/04/04 Anaya Parikh OD Optometry 04/09/24 Dorian Edouard Printing Machinist 06/04/04 [facility] Lifeguard 04/09/24 documented as of this encounter
--- OUTSIDE RECORDS SUMMARY | 2025-04-02 15:59 | XMS_ITS | Clinical Summary ---
Author Organization [facility] Address [address] [place] [address] Phone Care Team Providers Care Quality Supervisor Name Role Phone Kianna Nunez MD Primary Care Provider [phone] Encounters Date Type Department Care Team Description 01/27/2025 10:45 AM EDT - 01/27/2025 11:59 PM EDT Hospital Encounter [facility] PET Scan [address] [place] [address] Other nonspecific abnormal finding of [...] Signed Date: 01/28/2025 12:32 ET Workstation ID: [id number] Transcribed By: Self Edit Transcribed Date: 01/28/2025 [...] Signed Date: 01/28/2025 12:32 ET Workstation ID: [id number] Transcribed By: Self Edit Transcribed Date: 01/28/2025 12:23 ET Paul Andre MD IM NM PROCEDURES Final Result from [place] [address] [id number] [facility] Care Teams Quality Supervisor Relationship Specialty Start Date End Date Kianna Nunez MD [address] [place] [address] PCP - General 08/27/23
--- OUTSIDE RECORDS SUMMARY | 2025-04-02 15:59 | XMS_ITS | Encounter Summary ---
Author Organization [employer] Address [address] 7[address] [place] [address] Care Team Providers Care Checker/Stocker Name Role Phone Kianna Nunez MD Primary Care Provider [phone] Reason for Visit * Reason Onset Date Comments restrictions for grand daughter 12/30/2024 Encounter Details Date Type Department Care Team ([facility] st Contact Info) Description 12/30/2024 Telephone [facility] MEDICINE [address] [place] [address] Kianna Nunez MD [address] [place], [place] [phone] restrictions for grand daughter Social History Tobacco [...] permission and then telling her daughters in [place] that she is not coming to her appts. Upon review of patient chart, her appt on 01/05 has not been cancelled. However she states that her grand daughter Mendy Nye has cancelled appts in the past.She says she needs to keep this appt because her daughters are comin gin from [place] to meet her PCP and discuss medical concerns. She does not want her grand daughter Mendy Nye to have access toher information DR documented in this encounter Plan of Treatment Upcoming Encounters Date Type Department Care Team (Late st Contact Info) Description 04/07/2025 3:00 PM EST Clinical Support [facility] MED & PEDS [address] [place] [address] 06/29/2025 2:30 PM EST Office Visit [facility] OPTOMETRY [address] [place] [address] Jenni Morales OD [address] [place] [address] documented as of this encounter Visit Diagnoses Not on filedocumented in this encounter Additional Health Concerns Assessment Noted Time PHQ-9 Depression Total Score: 7 12/20/19 25 9:35 AM EDT documented as of this encounter Care Teams Checker/Stocker Relationship Specialty Start Date End Date Kianna Nunez MD [address] [place] [address] PCP - General Family Medicine 02/02/20 Kleber Liu MD Dentofacial Orthopedics Dentist 06/04/04 Anaya Parikh OD Optometry 04/09/24 Dorian Edouard Quality Assurance Technician 06/04/04 [employer] [facility] Bar Catcher 04/09/24 documented as of this encounter
--- OUTSIDE RECORDS SUMMARY | 2025-04-02 15:59 | XMS_ITS | Encounter Summary ---
Author Organization [employer] Address [address] 7t [place] [address] Care Team Providers Care Certified Massage Therapist Name Role Phone Kianna Nunez MD Primary Care Provider [phone] Reason for Visit * Reason Onset Date Comments Nurse Triage 01/08/2024 Encounter Details Date Type Department Care Team ([facility] st Contact Info) Description 01/08/2024 Telephone [facility] MEDICINE [address] [place] [address] Kianna Nunez MD [address] [place], [place] [phone] Nurse Triage Social History Tobacco Use Types [...] with others, in a hotel, in a prison, living outside on the street, on a [...] to speak for Pt. Pt only speaks azerbaijani. Pt has been having some rectal bleeding [...] ASK apt with Dr. Mcgowan, 01/16/24 @ 1115a. Insurance is verified as active prior to [...] 01/08/2024 2:20 PM EDT Triage call with [place] [employer] [place] [id number]. Call to [phone] unable to get connection, callto [phone] unable to get connection. * Telephone Encounter - Ruba Hinson - 01/08/2024 2:09 PM EDT Symptoms: Body Aches, Urination Pain Outcome: Schedule an urgent appointment (within 1 hour) or talk to a nurse or provider soon Reason: Severe pain now The caller accepted this outcome Please contact at [phone] documented in this encounter Plan of Treatment Upcoming Encounters Date Type Department Care Team (Late st Contact Info) Description 04/07/2025 3:00 PM EST Clinical Support [facility] CH[facility] MED & PEDS [address] [place] [address] 06/29/2025 2:30 PM EST Office Visit [facility] OPTOMETRY [address] [place], [place] [phone] Jenni Morales, OD [address] [place] [address] documented as of this encounter Visit Diagnoses Not on filedocumented in this encounter Additional Health Concerns Assessment Noted Time PHQ-9 Depression Total Score: 0 05/01/20 23 2:20 PM EST documented as of this encounter Care Teams Certified Massage Therapist Relationship Specialty Start Date End Date Kianna Nunez MD [address] [place] [address] PCP - General Family Medicine 02/02/20 Kleber Liu MD Mold Preparer 06/04/04 Anaya Parikh, OD Optometry 04/09/24 Dorian Edouard Junior Oracle Dba 06/04/04 [employer] [facility] Glost Tile Shader 04/09/24 documented as of this encounter
--- OUTSIDE RECORDS SUMMARY | 2025-04-02 15:59 | XMS_ITS | Encounter Summary ---
Author Organization [employer] Address [address] [place] [address] Care Team Providers Care Milieu Technician Name Role Phone Kianna Nunez MD Primary Care Provider [phone] Reason for Visit * Reason Comments Med Refill Encounter Details Date Type Department Care Team ([facility] st Contact Info) Description 09/24/2024 Refill [facility] CHC MED & PEDS [address] [place] [address] Kianna Nunez MD [address] [place] [address] Pain Social History Tobacco Use Types Packs/Day [...] Description 04/07/2025 3:00 PM EST Clinical Support [facility] CHC MED & PEDS [address] [place] [address] 06/29/2025 2:30 PM EST Office Visit [facility] OPTOMETRY [address] [place] [address] Jenni Morales, OD [address] [place] [address] documented as of this encounter Visit Diagnoses Diagnosis Pain Generalized pain documented in this encounter Additional Health Concerns Assessment Noted Time PHQ-9 Depression Total Score: 18 024 10:34 AM EST documented as of this encounter Care Teams Milieu Technician Relationship Specialty Start Date End Date Kianna Nunez MD [address] [place] [address] PCP - General Family Medicine 02/02/20 Kleber Liu MD Garment Finisher 06/04/04 Anaya Parikh OD Optometry 04/09/24 Dorian Edouard Night Cleaner 06/04/04 [employer] [facility] Historian Dramatic Arts 04/09/24 documented as of this encounter
--- OUTSIDE RECORDS SUMMARY | 2025-04-02 15:59 | XMS_ITS | Encounter Summary ---
Author Organization [employer] [facility] Address [address] 7[address] [place] [address] Care Team Providers Care Flexible Babysitter Name Role Phone Kianna Nunez MD Primary Care Provider [phone] Reason for Visit * Reason Comments Med Refill Encounter Details Date Type Department Care Team (Late Contact Info) Description 02/20/2023 Refill [facility] MED & PEDS [address] [place], [place] [phone] Kianna Nunez MD [address] [place], [place] [phone] Primary hypertension Social History Tobacco Use Types [...] Encounters Date Type Department Care Team (Late Contact Info) Description 04/07/2025 3:00 PM EST Clinical Support [facility] CHC MED & PEDS [address] [place] [address] 06/29/2025 2:30 PM EST Office Visit [facility] OPTOMETRY [address] [place] [address] Jenni Morales, OD [address] [place] [address] documented as of this encounter Visit Diagnoses Diagnosis Primary hypertension Unspecified essential hypertension documented in this encounter Care Teams Flexible Babysitter Relationship Specialty Start Date End Date Kianna Nunez MD [address] [place] [address] PCP - General Family Medicine 02/02/20 Kleber Liu MD Encoding Clerk 06/04/04 Anaya Parikh OD Optometry 04/09/24 Dorian Edouard Machinist Job Setter 06/04/04 [facility] Practical Nursing Teacher 04/09/24 documented as of this encounter
--- OUTSIDE RECORDS SUMMARY | 2025-04-02 15:59 | XMS_ITS | Encounter Summary ---
Author Organization [employer] Address [address] 7t [place] [address] Care Team Providers Care Cottonseed Meat Presser Name Role Phone Kianna Nunez MD Primary Care Provider [phone] Reason for Visit * Reason Onset Date Comments call back needed 02/20/2025 Encounter Details Date Type Department Care Team ([facility] st Contact Info) Description 02/20/2025 Telephone [facility] MEDICINE [address] [place] [address] Kianna Nunez MD [address] [place], [place] [phone] call back needed Social History Tobacco Use [...] - 02/20/2025 4:50 PM EDT TC from [facility] requesting a call back due to questions [...] Description 04/07/2025 3:00 PM EST Clinical Support [facility] CH[facility] MED & PEDS [address] [place] [address] 06/29/2025 2:30 PM EST Office Visit [facility] OPTOMETRY [address] [place] [address] Jenni Morales, OD [address] [place], [place] [phone] documented as of this encounter Visit Diagnoses Not on filedocumented in this encounter Additional Health Concerns Assessment Noted Time PHQ-9 Depression Total Score: 7 12/20/19 25 9:35 AM EDT documented as of this encounter Care Teams Cottonseed Meat Presser Relationship Specialty Start Date End Date Kianna Nunez MD [address] [place] [address] PCP - General Family Medicine 02/02/20 Kleber Liu MD Guard Chief 06/04/04 Anaya Parikh OD Optometry 04/09/24 Dorian Edouard Glove Cutter 06/04/04 [employer] [facility] Bit Sander 04/09/24 documented as of this encounter
--- OUTSIDE RECORDS SUMMARY | 2025-04-02 15:59 | XMS_ITS | Encounter Summary ---
Author Organization [facility] Address [address] [place] [address] 7t [place] [address] Care Team Providers Care Solutions Sales Executive Name Role Phone Kianna Nunez MD Primary Care Provider [phone] Encounter Details Date Type Department Care Team (Late Contact Info) Description 08/31/2022 Orders Only [facility] CHC MED & PEDS [address] [place], [place] [phone] Timothy Ibrahim MD [address] [place], [place] [phone] Social History Tobacco Use Types Packs/Day Years [...] Description 04/07/2025 3:00 PM EST Clinical Support [facility] MED & PEDS [address] [place], [place] [phone] 06/29/2025 2:30 PM EST Office Visit [facility] OPTOMETRY [address] [place], [place] [phone] Jenni Morales, OD [address] [place], [place] [phone] documented as of this encounter Procedures Procedure Name Priority Date/Time Associated Diagnosis Comments CULTURE, URINE, ROUTINE Routine 01/05/2023 10:30 AM EDT documented in this encounter Results * Culture, Urine, Routine (01/05/2023 10:30 AM EDT) Urine specimen obtained by clean catch procedure / Unknown 01/05/2023 10:30 AM EDT 01/05/2023 2:58 PM EDT Comment:[facility] - 01/07/2023 7:34 AM EDT Escherichia coli Quant > 100,000 cfu/mL Escherichia coli: Ampicillin >=32(R) Escherichia coli: Ceftriaxone <=0.25(S) Escherichia coli: Gentamicin <=1(S) Escherichia coli: Levofloxacin >=8(R) Escherichia coli: Nitrofurantoin <=16(S) Escherichia coli: Trimethoprim/Sulfamethoxazole <=20(S) Specimen Source: Urine clean catch us Kianna Nunez MD LAB MICROBIOLOGY - GENERAL OR DERABLES Final Result Performing Organization Address City/State/[facility] Co de Phone Number [facility] [address] [place] [phone] documented in this encounter Visit Diagnoses Not on filedocumented in this encounter Care Teams Solutions Sales Executive Relationship Specialty Start Date End Date Kianna Nunez MD [address] [place] [address] PCP - General Family Medicine 02/02/20 Kleber Liu MD Form Setter Helper 06/04/04 Anaya Parikh OD Optometry 04/09/24 Dorian Edouard Mortgage Loan Originator 06/04/04 [employer] [facility] Methods Time Analyst 04/09/24 documented as of this encounter
--- OUTSIDE RECORDS SUMMARY | 2025-04-02 15:59 | XMS_ITS | Encounter Summary ---
Author Organization [employer] [facility] Address [address] [place] [address] Care Team Providers Care Soa Integration Developer Name Role Phone Kianna Nunez MD Primary Care Provider [phone] Reason for Visit * Reason Onset Date Comments insurance update 10/05/2022 Appointment 10/05/2022 Encounter Details Date Type Department Care Team (Late st Contact Info) Description 10/05/2022 Telephone [facility] ADULT DENTAL [address] [place] [address] Felisha Burkett DDS insurance update; Appointment Social [...] - 10/05/2022 10:06 AM EDT Bartolo from [facility] called in stating that patient had appt a couple of days ago but was unable to be seen due to apparently having no insurance coverage. She does have coverage through [facility] benefit providers. The id number for the dental portion would be [id number]. Please update insurance info and contact patient for rescheduling DR documented in this encounter Plan of Treatment Upcoming Encounters Date Type Department Care Team (Late st Contact Info) Description 04/07/2025 3:00 PM EST Clinical Support [facility] CHC MED & PEDS [address] [place] [address] 06/29/2025 2:30 PM EST Office Visit [facility] OPTOMETRY [address] [place], [place] [phone] Jenni Morales, OD [address] [place] [address] documented as of this encounter Visit Diagnoses Not on filedocumented in this encounter Care Teams Soa Integration Developer Relationship Specialty Start Date End Date Kianna Nunez MD [address] [place] [address] PCP - General Family Medicine 02/02/20 Kleber Liu MD Duplicating Machine Operator 06/04/04 Anaya Parikh OD Optometry 04/09/24 Dorian Edouard Medicinal Plant Picker 06/04/04 [employer] [facility] Escort Service Attendant 04/09/24 documented as of this encounter
== END 2025-04-02 16:40 | disposition home or self-care (01) ==
PROVIDERS: PCP Family Medicine; Visit Provider Nurse Practitioner
DX: K64.9 Unspecified hemorrhoids (principal); Z12.12 Encounter for screening for malignant neoplasm of rectum
CPT/HCPCS: 99213

== ENCOUNTER → 2025-04-02 13:07 | Outpatient (BNVA) | payer OTHER, SELFPAY | PROVIDERS: PCP Family Medicine; Visit Provider Nurse Practitioner | DX: Z12.11 Encounter for screening for malignant neoplasm of colon (principal); K64.9 Unspecified hemorrhoids; F17.210 Nicotine dependence, cigarettes, uncomplicated | CPT/HCPCS: 99212 ==

== ENCOUNTER → 2025-04-06 09:02 | Outpatient (REF) | payer OTHER, SELFPAY ==
--- NOTE | 2025-03-30 21:54 | PM.CNNEP ---
History of Present Illness Reason for Consult Consult date: 03/30/25 Reason for consult: adv CKD Chief Complaint Chief complaint: Heart failure with reduced ejection fraction History of Present Illness Narrative: BOO booneeint seen by me in office for routine f/u of her adv CKD office notes avail as needed, call [phone] or ttext me [facility] Past Medical History Medical History Acute pyelonephritis E coli bacteremia Rectal candidiasis Urinary tract infection UTI (urinary tract infection) Cocaine use disorder Cocaine use disorder in remission MDD (major depressive disorder), recurrent severe, without psychosis Hx of sepsis History of asthma Hyperlipidemia HTN (hypertension) Cardiomyopathy ICD (implantable cardioverter-defibrillator) in place CAD (coronary artery disease) Chronic heart failure with reduced ejection fraction and diastolic dysfunction GERD (gastroesophageal reflux disease) Family History Family History Father Diabetes HTN (hypertension) Mother Diabetes HTN (hypertension) Sister Throat cancer Family/Other Colon cancer Surgical History Surgical History History of surgery Hx of cystoscopy H/O hemorrhoidectomy Stented coronary artery Hx of colonoscopy Social History Social History Household Members: None Housing: Apartment Are you a primary body care manager to a significant other at home: No Do you presently have visiting nurse or other home services: No Alcohol intake: never Comment: sleeping Patient Tobacco Use Status: Current everyday Tobacco user Tobacco use type: Cigarette Cigarette Packs Per Day: 2 Cigarettes Per Day: 40.0 Years Smoked: 38 e-Cigarette/Vaping Use: Never Used Second Hand Smoke Exposure: Yes Substance Use Type: Marijuana Advance Directives Date on File: 04/26/21 service: No Current occupational status: unemployed and disabled Sexual orientation: Straight/Heterosexual Meds Allergies Allergy/AdvReac Type Severity Reaction Status Date / Time Iodinated Contrast Media Allergy Severe ANGIOEDEMA Verified 02/27/25 10:20 (CONTRAST,IV) Home Medications ?Medication ?Instructions ?Recorded ?Confirmed ?Last Taken ?Type ascorbic acid (vitamin C) 250 mg 250 mg PO BID 05/13/20 03/19/25 11/16/23 08:00 History tablet atorvastatin 40 mg tablet 40 mg PO BEDTIME 05/13/20 03/19/25 11/15/23 20:00 History calcium 600 mg (as 1 tab PO BID 05/13/20 03/19/25 11/16/23 08:00 History carbonate)-vitamin D3 5 mcg (200 unit) tablet (Calcium 600 + D(3)) isosorbide mononitrate 30 mg 30 mg PO QAM 10/12/22 03/19/25 11/16/23 09:00 History tablet,extended release 24 hr pantoprazole 40 mg tablet,delayed 40 mg PO DAILY 10/12/22 03/19/25 11/16/23 06:30 History release torsemide 20 mg tablet 40 mg PO QAM 10/12/22 03/19/25 11/16/23 07:00 History hydroxyzine pamoate 25 mg capsule 25 mg PO Q8H PRN anxiety 12/02/24 03/19/25 Unknown History ferrous gluconate 324 mg (38 mg 324 mg PO Q OTHER DAY 02/05/25 03/19/25 Unknown History iron) tablet hydralazine 25 mg tablet 25 mg PO TID 02/05/25 03/19/25 Unknown History imipramine HCl 50 mg tablet 50 mg PO BEDTIME 02/05/25 03/19/25 Unknown History sennosides 8.6 mg tablet (senna) 17.2 mg PO BEDTIME PRN constipation 02/05/25 03/19/25 Unknown History Procedures Date of Service Date of Service: 03/30/25
--- NOTE | 2025-04-06 09:06 | CA_ITS ---
Transthoracic Echocardiogram Patient (Last, First, Middle): Georgiana Earl, Gender: Female Date of : 1955 Age: 70 Procedure Date: 04/06/2025 Procedure Type: Transthoracic Echocardiogram Location: OP Height: 152.4 cm Weight: 45.81 kg BSA: 1.40 m2 Heart Rate: bpm BP: 115 / 60 mmHg Carpet Or Rug Layer Helper: Referring MD: Kleber Liu MD Symptoms: I50.20 - Unspecified systolic (congestive) heart failure Study Quality: Good ECG Rhythm: Sinus Conclusions: - The left ventricular systolic function is moderate to severely decreased. The calculated ejection fraction is 29% by biplane method. - Global hypokinesis with regional variation as described below. Findings Left Ventricle Moderately increased left ventricular cavity size. There is normal left ventricular wall thickness. The left ventricular systolic function is moderate to severely decreased. The calculated ejection fraction is 29% by biplane method. There is severe global hypokinesis. Evidence suggests grade I (mild) diastolic dysfunction. Wall Motion Rest Echo Findings The inferoseptal wall, the basal inferior, mid inferior, and mid anteroseptal segments are akinetic. Right Ventricle Normal right ventricular cavity size and systolic function. There is an ICD wire seen in the right ventricle. Atria The left atrium is moderately dilated. The right atrium is normal in size. Aortic Valve There is a normal trileaflet aortic valve. There is no aortic valve stenosis. There is mild aortic valve regurgitation. Mitral Valve The mitral valve appears normal. There is trace mitral valve regurgitation. There is no mitral valve stenosis. Pulmonic Valve The pulmonic valve is likely normal. Tricuspid Valve Normal tricuspid valve structure. There is mild tricuspid valve regurgitation. There is no evidence of pulmonary hypertension. Great Vessels The asc aorta is normal in size. Venous The inferior vena cava is normal in size and collapses greater than 50% with inspiration. Pericardium/Pleural There is a small loculated pericardial effusion overlying the left ventricle. Prior Study Comparison No significant change compared to prior study dated: 04/01/2024. Measurements 2D Linear Measurements IVSd: 1.01 0.6-0.9/0.6-1.0 cm LVIDd: 5.99 3.9-5.3/4.2-5.9 cm LVIDd Index: 4.28 2.4-3.2/2.2-3.1 cm/m2 LVIDs: 5.39 2.0-3.6 cm LVPWd: 1.05 0.7-1.1 cm Ao Root: 3.30 2.1-3.5 cm LA Diam: 3.10 2.7-3.8/3.0-4.0 cm LAIDs Index: 2.21 1.5-2.3 cm/m2 LV Mass: 319.01 67-162/88-224 g LV Mass Index: 227.86 43-95/49-115 g/m2 LVOT Diam: 2.00 3.0+(-)1.3 cm 2D Systolic Function EF 4C: 33.20 >55% EF 2C: 28.50 >55% EF BiP: 29.30 >55% Mitral Valve MV VTI: 0.24 MV Pk Jose Antonio: 1.16 MV Mn Jose Antonio: 0.61 MV Pk Grad: 5.00 MV Mn Grad: 2.00 MV Pk E: 0.64 MV PK A: 0.99 MV Decel Time: 116.00 E/A: 0.60 E'Lateral: 5.44 E'Medial: 3.26 E/E' Med: 19.50 E/E' Lat: 11.70 PHT: 34.00 MVA PHT: 6.47 MVA Continuity: 2.19 Decel [place]: 5.48 Aortic Valve AoV Pk Jose Antonio: 1.49 AoV Mn Jose Antonio: 0.95 AoV VTI: 0.31 AoV Pk Grad: 9.00 Aov Mn Grad: 4.00 ECHO Cont.VTI: 1.67 AI Pk Jose Antonio: 5.21 AI [place]: 3.89 LVOT LVOT Pk Jose Antonio: 0.84 LVOT Mn Jose Antonio: 0.51 LVOT VTI: 0.17 LVOT Pk Grad: 3.00 LVOT Mn Grad: 1.00 LVOT Diam: 2.00 LVOT Area: 3.14 Diastolic Function MV Pk E: 0.64 MV Pk A: 0.99 E/A: 0.60 E'Medial: 3.26 E/E' Med: 19.50 E' Laterial: 5.44 E/E' Lat: 11.70 Right Ventricle TAPSE (mm): 31.00 TVS' Jose Antonio: 11.00 Tricuspid Valve TR Pk Jose Antonio: 2.53 TR Pk Grad: 26.00 RA Press: 3.00 RVSP: 29.00 Great Vessels Aorta Ao Root-2D: 3.30 2.0-3.7 cm Ao Asc: 3.70 2.1-3.4 cm Pulmonary Valve PV Pk Jose Antonio: 0.86 Peak PV Grad: 3.00 Updated in Other Vendor System with Status of Final Praveen Singh MD electronically signed on 04/07/2025 10:46:51 AM with status of Final
--- OUTSIDE RECORDS SUMMARY | 2025-04-06 09:51 | XMS_ITS | Encounter Summary ---
Author Organization [employer] Address [address] [place] [address] Care Team Providers Care French Cord Binder Name Role Phone Kianna Nunez MD Primary Care Provider [phone] Reason for Visit * Reason Onset Date Comments call back needed 02/20/2025 Encounter Details Date Type Department Care Team ([facility] st Contact Info) Description 02/20/2025 Telephone [facility] MEDICINE [address] [place] [address] Kianna Nunez MD [address] [place], [place] [phone] call back needed Social History Tobacco Use [...] - 02/20/2025 4:50 PM EDT TC from [place] with [facility] requesting a call back due to [...] 3:00 PM EST Clinical Support [facility] CHC MED & PEDS [address] [place] [address] 06/29/2025 2:30 PM EST Office Visit [facility] OPTOMETRY [address] [place] [address] Jenni Morales, OD [address] [place], [place] [phone] documented as of this encounter Visit Diagnoses Not on filedocumented in this encounter Additional Health Concerns Assessment Noted Time PHQ-9 Depression Total Score: 7 12/20/19 25 9:35 AM EDT documented as of this encounter Care Teams French Cord Binder Relationship Specialty Start Date End Date Kianna Nunez MD [address] [place] [address] PCP - General Family Medicine 02/02/20 Kleber Liu MD Noodle Catalyst Maker 06/04/04 Anaya Parikh OD Optometry 04/09/24 Dorian Edouard Mobile Pet Groomer 06/04/04 [employer] Book Sewer 04/09/24 documented as of this encounter
--- OUTSIDE RECORDS SUMMARY | 2025-04-06 09:51 | XMS_ITS | Encounter Summary ---
Author Organization [facility] Address [address] [place] [address] Care Team Providers Care Water Meter Reader Name Role Phone Kianna Nunez MD Primary Care Provider [phone] Reason for Visit * Reason Comments Med Refill Encounter Details Date Type Department Care Team (Late Contact Info) Description 02/20/2023 Refill [facility] MED & PEDS [address] [place], [place] [phone] Kianna Nunez MD [address] [place], [place] [phone] Primary hypertension Social History Tobacco Use Types [...] Description 04/07/2025 3:00 PM EST Clinical Support [facility] CHC MED & PEDS [address] [place] [address] 06/29/2025 2:30 PM EST Office Visit [facility] OPTOMETRY [address] [place] [address] Jenni Morales, OD [address] [place] [address] documented as of this encounter Visit Diagnoses Diagnosis Primary hypertension Unspecified essential hypertension documented in this encounter Care Teams Water Meter Reader Relationship Specialty Start Date End Date Kianna Nunez MD [address] [place] [address] PCP - General Family Medicine 02/02/20 Kleber Liu MD Channeler Outsole 06/04/04 Anaya Parikh OD Optometry 04/09/24 Dorian Edouard Recreation Facility Manager 06/04/[address] [facility] [address] Sql Developer 04/09/24 documented as of this encounter
--- OUTSIDE RECORDS SUMMARY | 2025-04-06 09:51 | XMS_ITS | Encounter Summary ---
Author Organization [employer] Address [address] [place] [address] Care Team Providers Care Clothing Designer Name Role Phone Kianna Nunez MD Primary Care Provider [phone] Reason for Visit * Reason Comments Med Refill Encounter Details Date Type Department Care Team ([facility] st Contact Info) Description 09/24/2024 Refill [facility] CHC MED & PEDS [address] [place] [address] Kianna Nunez MD [address] [place] [address] Pain Social History Tobacco Use Types Packs/Day [...] 3:00 PM EST Clinical Support [facility] CHC MED & PEDS [address] [place] [address] 06/29/2025 2:30 PM EST Office Visit [facility] OPTOMETRY [address] [place] [address] Jenni Morales, OD [address] [place] [address] documented as of this encounter Visit Diagnoses Diagnosis Pain Generalized pain documented in this encounter Additional Health Concerns Assessment Noted Time PHQ-9 Depression Total Score: 18 024 10:34 AM EST documented as of this encounter Care Teams Clothing Designer Relationship Specialty Start Date End Date Kianna Nunez MD [address] [place] [address] PCP - General Family Medicine 02/02/20 Kleber Liu MD Manager Chinese 06/04/04 Anaya Parikh OD Optometry 04/09/24 Dorian Edouard Software Applications Architect 06/04/04 [employer] [facility] Line Manager 04/09/24 documented as of this encounter
--- OUTSIDE RECORDS SUMMARY | 2025-04-06 09:51 | XMS_ITS | Encounter Summary ---
Author Organization [employer] Address [address] [place] [address] Care Team Providers Care Observer Electrical Prospecting Name Role Phone Kianna Nunez MD Primary Care Provider [phone] Reason for Visit * Reason Onset Date Comments Nurse Triage 01/08/2024 Encounter Details Date Type Department Care Team ([facility] st Contact Info) Description 01/08/2024 Telephone [facility] MEDICINE [address] [place] [address] Kianna Nunez MD [address] [place], [place] [phone] Nurse Triage Social History Tobacco Use Types [...] with others, in a hotel, in a chcf, living outside on the street, on a [...] to speak for Pt. Pt only speaks indian. Pt has been having some rectal bleeding [...] 01/08/2024 2:20 PM EDT Triage call with [place] Associate Accountant [place] [id number]. Call to [phone] unable to get connection, callto [phone] unable to get connection. * Telephone Encounter - Ruba Hinson - 01/08/2024 2:09 PM EDT Symptoms: Body Aches, Urination Pain Outcome: Schedule an urgent appointment (within 1 hour) or talk to a nurse or provider soon Reason: Severe pain now The caller accepted this outcome Please contact at [phone] documented in this encounter Plan of Treatment Upcoming Encounters Date Type Department Care Team (Late st Contact Info) Description 04/07/2025 3:00 PM EST Clinical Support [facility] CHC MED & PEDS [address] [place] [address] 06/29/2025 2:30 PM EST Office Visit [facility] OPTOMETRY [address] [place], [place] [phone] Jenni Morales, OD [address] [place] [address] documented as of this encounter Visit Diagnoses Not on filedocumented in this encounter Additional Health Concerns Assessment Noted Time PHQ-9 Depression Total Score: 0 05/01/20 23 2:20 PM EST documented as of this encounter Care Teams Observer Electrical Prospecting Relationship Specialty Start Date End Date Kianna Nunez MD [address] [place] [address] PCP - General Family Medicine 02/02/20 Kleber Liu MD Sweet Goods Machine Operator 06/04/04 Anaya Parikh, OD Optometry 04/09/24 Dorian Edouard Tanbark Laborer 06/04/04 [employer] [facility] Molded Rubber Goods Cutter 04/09/24 documented as of this encounter
--- OUTSIDE RECORDS SUMMARY | 2025-04-06 09:51 | XMS_ITS | Encounter Summary ---
Author Organization [employer] Address [address] [place] [address] Care Team Providers Care Legal Instruments Examiner Name Role Phone Kianna Nunez MD Primary Care Provider [phone] Reason for Visit * Reason Onset Date Comments Pre-op Exam 11/15/2023 Encounter Details Date Type Department Care Team ([facility] st Contact Info) Description 11/15/[address] [facility] CHC MED & PEDS [address] [place] [address] Kianna Nunez MD [address] [place] [address] Pre-op Exam Social History Tobacco Use Types [...] with others, in a hotel, in a long term, living outside on the street, on a [...] no Surgeon's name: Dr. Agustin Facility name: [facility] Surgeon's office number: [phone] ext [phone] Surgeon's office fax number: [phone] Contact name (person you spoke with): Kelli Last office note from surgeon requested: Pre-Op notes documented in this encounter Plan of Treatment Upcoming Encounters Date Type Department Care Team (Late st Contact Info) Description 04/07/2025 3:00 PM EST Clinical Support [facility] CHC MED & PEDS [address] [place] [address] 06/29/2025 2:30 PM EST Office Visit [facility] OPTOMETRY [address] [place], [place] [phone] Jenni Morales, OD [address] [place] [address] documented as of this encounter Visit Diagnoses Not on filedocumented in this encounter Additional Health Concerns Assessment Noted Time PHQ-9 Depression Total Score: 0 05/01/20 23 2:20 PM EST documented as of this encounter Care Teams Legal Instruments Examiner Relationship Specialty Start Date End Date Kianna Nunez MD [address] [place] [address] PCP - General Family Medicine 02/02/20 Kleber Liu MD Compensation Business Partner 06/04/04 Anaya Parikh OD Optometry 04/09/24 Dorian Edouard Carbon Plant Grinder 06/04/04 [employer] [facility] Tube Filler 04/09/24 documented as of this encounter
--- OUTSIDE RECORDS SUMMARY | 2025-04-06 09:51 | XMS_ITS | Encounter Summary ---
Author Organization [facility] [facility] Address [address] [place] [address] Care Team Providers Care Private Secretary Name Role Phone Kianna Nunez MD Primary Care Provider [phone] Reason for Visit * Reason Onset Date Comments Telephone Call 04/03/2025 Encounter Details Date Type Department Care Team ([facility] st Contact Info) Description 04/03/2025 Telephone [facility] MEDICINE [address] [place] [address] [place] [address] Telephone Call Social History Tobacco Use Types Packs/Day Years [...] encounter Miscellaneous Notes * Telephone Encounter - Manohar Nye - 04/03/2025 11:11 AM EDT T/C to pt to schedule a nutrition appointment. No answer, LVM to call back to schedule appointment. documented in this encounter Plan of Treatment Upcoming Encounters Date Type Department Care Team (Late st Contact Info) Description 04/07/2025 3:00 PM EST Clinical Support [facility] CHC MED & PEDS [address] [place] [address] 06/29/2025 2:30 PM EST Office Visit [facility] OPTOMETRY [address] [place] [address] Jenni Morales, OD [address] [place] [address] documented as of this encounter Visit Diagnoses Not on filedocumented in this encounter Additional Health Concerns Assessment Noted Time PHQ-9 Depression Total Score: 7 12/20/19 25 9:35 AM EDT documented as of this encounter Care Teams Private Secretary Relationship Specialty Start Date End Date Kianna Nunez MD [address] [place] [address] PCP - General Family Medicine 02/02/20 Kleber Liu MD Radiophone Operator 06/04/04 Anaya Parikh OD Optometry 04/09/24 Dorian Edouard Acting Manager 06/04/04 [employer] [facility] Heel Scorer 04/09/24 documented as of this encounter
--- OUTSIDE RECORDS SUMMARY | 2025-04-06 09:51 | XMS_ITS | Clinical Summary ---
Author Organization [facility] Address [address] [place] [address] Phone Care Team Providers Care Financial Reporting Advisor Name Role Phone Kianna Nunez MD Primary Care Provider [phone] Encounters Date Type Department Care Team Description 01/27/2025 10:45 AM EDT - 01/27/2025 11:59 PM EDT Hospital Encounter [facility] PET Scan [address] [place] [address] Other nonspecific abnormal finding of [...] Signed Date: 01/28/2025 12:32 ET Workstation ID: [id number] Transcribed By: Self Edit Transcribed Date: 01/28/2025 [...] Signed Date: 01/28/2025 12:32 ET Workstation ID: [id number] Transcribed By: Self Edit Transcribed Date: 01/28/2025 12:23 ET Paul Andre MD IM NM PROCEDURES Final Result from [place] [address] [place] [address] [facility] Care Teams Financial Reporting Advisor Relationship Specialty Start Date End Date Kianna Nunez MD [address] [place] [address] PCP - General 08/27/23
--- OUTSIDE RECORDS SUMMARY | 2025-04-06 09:51 | XMS_ITS | Encounter Summary ---
Author Organization [employer] Address [address] [place] [address] Care Team Providers Care Custodial Officer Name Role Phone Kianna Nunez MD Primary Care Provider [phone] Reason for Visit * Reason Comments Med Refill Encounter Details Date Type Department Care Team ([facility] st Contact Info) Description 04/06/2025 Refill [facility] CHC MED & PEDS [address] [place] [address] Kianna Nunez MD [address] [place] [address] Painful spasm of anus Social History Tobacco Use Types Packs/Day Years [...] 3:00 PM EST Clinical Support [facility] CHC MED & PEDS [address] [place], [place] [phone] 06/29/2025 2:30 PM EST Office Visit [facility] OPTOMETRY [address] [place] [address] Jenni Morales OD [address] [place] [address] documented as of this encounter Visit Diagnoses Diagnosis Painful spasm of anus Anal spasm documented in this encounter Additional Health Concerns Assessment Noted Time PHQ-9 Depression Total Score: 7 12/20/19 25 9:35 AM EDT documented as of this encounter Care Teams Custodial Officer Relationship Specialty Start Date End Date Kianna Nunez MD [address] [place] [address] PCP - General Family Medicine 02/02/20 Kleber Liu MD Cable Television Program Director 06/04/04 Anaya Parikh OD Optometry 04/09/24 Dorian Edouard Rawhide Bone Roller 06/04/04 [employer] [facility] Surgeon Assistant 04/09/24 documented as of this encounter
--- OUTSIDE RECORDS SUMMARY | 2025-04-06 09:52 | XMS_ITS | Clinical Summary ---
Author Organization [employer] Address [address]t [place] [address] Care Team Providers Care Tablet Tester Name Role Phone Kianna Nunez MD Primary Care Provider [phone] Allergies Active Allergy Reactions Criticality Noted Date [...] BEDTIME FOR 2 DAYS 02/06/20 Active PEG 5679-ZSl-RgVjd-Na Cl-NaSulf (PEG-3350/Electro lytes) 236 g reconstituted solution [...] referred for therapy and information given to granddaughter/HYDROGRAPHY TEACHER. Assessment & Plan (04/09/2024 11:16 AM [...] and I will also send her to md allergy immunology. Labs: CBC, Comprehensive Metabolic Panel, Lipid panel, [...] is to refer patientfor OP individual therapy. [facility] crisis line number provided. At this [...] for her to decrease symptoms c. Contact [facility] crisis line if needed (information and [...] is to refer patientfor OP individual therapy. [facility] crisis line number provided. At this [...] for her to decrease symptoms c. Contact [facility] crisis line if needed (information and [...] BP medication when she gets back to [place] today. -Seek medical attention if she has concerns. -Medication reconciliation with pharmacy was done today. Asthma 11/06/2011 Nephrolithiasis 11/06/2011 Tobacco user 09/13/2011 Resolved Problems Problem Noted Date Diagnosed Date Resolved Date Physical exam 08/22/2023 04/09/2024 Encounter for health-related screening 05/01/2023 04/09/2024 Assessment & Plan (05/01/2023 2:24 PM EST): -Labs: HIV-1/2, Hep. C-Ab. Encounters Date Type Department Care Team Description 04/06/2025 Refill [facility] & PEDS [address] [place] [address] Kianna Nunez MD Painful spasm of anus 04/03/2025 Telephone [facility] MEDICINE [address] [place] [address] Telephone Call 03/30/2025 10:00 AM EDT Office Visit [facility] [address] [place] [address] Kianna Nunez MD Primary hypertension (Primary Dx); Pain; Encounter for immunization; Encounter for vaccination 03/30/2025 Travel 03/27/2025 Telephone [facility] [address] [place] [address] Kianna Nunez MD Chart Prep 03/23/2025 Orders Only GENERIC EXTERNAL DATA DEPARTMENT Provider, Generic External Data 03/11/[address] [address] Kianna Nunez MD 03/08/2025 Refill [facility] [address] [place] [address] Lara Alanis MD Anxiety; Chronic heart failure, unspecified heart failure type (HCC) 02/27/[address] Nutrition referral 02/20/[address] [address] Kianna Nunez MD call back needed 02/10/2025 Telephone [facility] [address] [place] [address] Kianna Nunez MD US BREAST ORDER 02/05/2025 Refill [facility] CHC MED & PEDS [address] [place] [address] Kianna Nunez MD 02/03/2025 Refill [facility] CHC MED & PEDS [address] [place] [address] Lara Alanis MD Failure to thrive in adult 01/28/2025 Orders Only [facility] [address] [place] [address] Chacho Romero MD 01/27/2025 Telephone [facility] [address] [place] [address] Kianna Nunez MD 01/23/2025 Telephone [facility] [address] [place] [address] Kianna Nunez MD Referral 01/22/2025 2:30 PM EDT Office Visit [facility] CHC MED & PEDS [address] [place] [address] Kianna Nunez MD Mass of lower outer quadrant of right breast (Primary Dx); Dysuria 01/22/2025 Travel 01/14/2025 Telephone [facility] [address] [place] [address] Kianna Nunez MD chart prep 01/12/2025 Telephone [facility] [address] [place] [address] Kianna Nunez MD Durable Medical Equipment 01/07/2025 Refill [facility] CHC MED & PEDS [address] [place] [address] Lara Alanis MD 01/07/2025 Refill [facility] CHC MED & PEDS [address] [place] [address] Kianna Nunez MD 01/06/2025 Refill [facility] [address] [place] [address] Lara Alanis MD Hyperlipidemia, unspecified hyperlipidemia type; Chronic heart failure, unspecified heart failure type ([facility]); Gastroesophageal reflux disease, unspecified whether esophagitis present 01/05/2025 Telephone [facility] CH[facility] MED & PEDS [address] [place], [place] [phone] Kianna Nunez MD No Show from Last 3 Months Immunizations Immunization Administration [...] Description 04/07/2025 3:00 PM EST Clinical Support [facility] CHC MED & PEDS [address] [place], [place] [phone] 06/29/2025 2:30 PM EST Office Visit [facility] OPTOMETRY [address] [place], [place] [phone] Tarka Jenni, OD [address] [place] [address] Health Maintenance Due Date Last Done Comments [...] DIPSTICK Routine 01/22/2025 2:33 PM EDT Dysuria LIPID PANEL, STANDARD Routine 12/31/2024 11:02 AM EDT Failure to thrive in adult HEPATITIS C AB W/REFL TO HCV RNA, [...] AM EDT) Metanephrine, Free 59(A) <=57 pg/mL [facility] Comment:This test was develo ped and its analytical performancecharacteristics have been determined by [employer] [place], [place]. It hasnot been cleared or approved by the U.S. Food and DrugAdministration. This assay has been validated pursuantto the CLIA regulations and is used for clinicalpurposes. Normetanephrine, Free 383(A) <=148 pg/mL [facility] Comment:This test was develo ped and its analytical performancecharacteristics have been determined by [employer] [place], [place]. It hasnot been cleared or approved by the U.S. Food and DrugAdministration. This assay has been validated pursuantto the CLIA regulations and is used for clinicalpurposes. Total, Free (MN+NMN) 442(A) <=205 pg/mL [facility] Comment: For additional information, please refer tohttp://education.Pathwright/faq/MetFractFree(This link is being provided for informational/educatioinformational/educational purposes [...] its analytical performancecharacteristics have been determined by [employer] [place], [place]. It hasnot been cleared or approved by the U.S. Food and DrugAdministration. This assay has been validated pursuantto the CLIA regulations and is used for clinicalpurposes.THIS TEST WAS PERFORMED AT:[facility] [place] [address]YCIZPJBSOUMYA CHRISTOPHER MD,PHD 03/23/2025 8:14 AM EDT 03/23/2025 11:01 AM EDT us Generic External Data Provider LAB BLOOD ORDERAB LES Final Result [facility] [address] [place] [address] [phone] * Cortisol Random (03/23/2025 8:14 AM EDT) Cortisol Random 17.0 ug/dL [facility] Comment:Reference Range*: Be fore 10 am 6.2-19.4 ug/dL After 5 pm 2.3-11.9 ug/dL*Please interpret above results accordingly.This test was performed using the Amaral chemiluminescentmethod. Values obtained from different assay methods cannotbe used interchangeably.Patients receiving fludrocortisone, prednisolone orprednisone may show artificially elevated cortisol valuesdue to cross-reactivity. 03/23/2025 8:14 AM EDT 03/23/2025 11:01 AM EDT us Generic External Data Provider LAB BLOOD ORDERAB LES Final Result Performing Organization Address [facility] Co de Phone Number [facility] [address] [place] [phone] * Vitamin B12 (Cobalamin) and Folate Panel, Serum (03/23/2025 8:14 AM EDT) Vitamin B12 307 200 - 900 pg/mL [facility] Comment:NORMAL 200-900 PG/ML INDETERMINATE 160-199 PG/ML DEFICIENT < 160 PG/ML Folate 13.0 > or = 4.0 ng/mL [facility] Comment:Reference Values:> o r = 4.0 ng/mL< 4.0 ng/mL suggests folate deficiency Methotrexate, aminopterin and folinic acid(leucovorin) are chemotherapeutic agents whose molecularstructures are similar to folate; therefore, the Architectfolate assay cannot be used for patients using these drugs. 03/23/2025 8:14 AM EDT 03/23/2025 11:05 AM EDT us Kianna Nunez MD LAB BLOOD ORDERABLES Final Re sult Performing Organization Address [facility] Co de Phone Number [facility] [address] [place] [address] [phone] * TSH with Reflex to Free T4 (03/23/2025 8:14 AM EDT) TSH reflex Free T4 1.78 0.32 - 4.0 uIU/mL [facility] 03/23/2025 8:14 AM EDT 03/23/2025 11:01 AM EDT us Kianna Nunez MD LAB BLOOD ORDERABLES Final Re sult Performing Organization Address [facility] Co de Phone Number [facility] [address] [place] [address] [phone] * HIV-1/2 Antigen and Antibodies, Fourth Generation, with Reflexes (03/23/2025 8:14 AM EDT) Pathologist [facility] HIV AB/AG Nonreactive Nonreactive [facility] Comment:HIV-1 p24 Ag and/or HIV-1/HIV-2 Ab not detected.A test result that is nonreactive does not exclude thepossibility of exposure to or infection with HIV-1 and/orHIV-2. Nonreactive results in this assay for individualswith prior exposure to HIV-1 and/or HIV-2 may be due toantigen and antibody levels that are below the limit ofdetection of this assay.The [email or web address] HIV Ag/Ab Combo assay result andsupplemental assay results should be interpreted inconjunction with the patient's clinical presentation,history and other laboratory results. If the results areinconsistent with clinical evidence, additional testing issuggested to confirm the result. Blood Venous blood specimen / Unknown 03/23/2025 8:14 AM EDT 03/23/2025 11:01 AM EDT us Kianna Nunez MD LAB BLOOD ORDERABLES Final Re sult Performing Organization Address [facility]/ZIP Co de Phone Number [facility] [address] [place] [address] [phone] * (ABNORMAL) Basic Metabolic Panel (03/23/2025 8:14 AM EDT) Pathologist [facility] Sodium 146(H) 135 - 145 mmol/L [facility] Potassium 4.6 3.3 - 5.1 mmol/L [facility] Chloride 113(H) 96 - 108 mmol/L [facility] Carbon Dioxide 24 22 - 29 mmol/L [facility] Anion Gap 14 12 - 20 [facility] Urea Nitrogen (BUN) 48(H) 9 - 16 mg/dL [facility] Creatinine, Serum 3.33(H) 0.5 - 1.4 mg/dL [facility] Estimated Glomerular Filt Rate 14 [facility] Comment:Chronic Kidney Disea se: Estimated GFR < 60 mL/min/1.64i3Aydabf Kidney Disease: Estimated GFR < 15 mL/min/1.73m2 Glucose 94 60 - 115 mg/dL [facility] Calcium 8.7 8.4 - 10.2 mg/dL [facility] 03/23/2025 8:14 AM EDT 03/23/2025 11:01 AM EDT us Generic External Data Provider LAB BLOOD ORDERAB LES Final Result Performing Organization Address City/State/[facility] Co de Phone Number [facility] [address] [place] [address] [phone] * NM Kidney Flow/Function w/ Pharmacological Intervention (02/26/2025 10:59 AM EDT) Anatomical Region Laterality Modality Body Nuclear Medicine 02/26/2025 10:5 9 AM EDT Narrative 02/26/2025 1:35 PM EDT [place] [address] Nuclear Medicine Report Signed Patient: Georgiana Earl MR#: [id number] [birth year] : 1955 Acct:[id number] Age/Sex: 69 / F ADM Date: 02/26/25 Loc: [facility] Attending Dr: Paul Rose MD Ordering Physician: Paul Rose MD Date of Service: 02/26/25 Procedure(s): NM renal flow w pharm int Accession Number(s): [id number] cc: Paul Rose MD; Kianna Nunez MD [...] 02/26/25 1332 DD/ 1059 TD/TT: 02/26/25 1230 Pearl Glue Operator: Procedure Note Donotuseinterpreter, Image - 02/26/2025 [place] [address] Nuclear Medicine Report Signed Patient: Georgiana Earl#: [id number] 29 : 4Acct:[id number] Age/Sex: 69 / FADM Date: 02/26/25 Loc: [facility] Attending Dr: Paul Rose MD Ordering Physician: Paul Rose MD Date of Service: 02/26/25 Procedure(s): NM renal flow w pharm int Accession Number(s): [id number] cc: Paul Rose MD; Kianna Nunez MD [...] 02/26/25 1332 DD/ 1059 TD/TT: 02/26/25 1230 Pearl Glue Operator: [facility] External Provider IMG NM PROCEDURES Final Result * PET/CT Bone Skull Base to Mid Thigh (01/27/2025 3:26 PM EDT) Anatomical Region Laterality Modality Body Computed Tomogra phy Historical Provider IMLuc CT PROCEDURES Final R esult * Culture, Urine, Routine (01/22/2025 2:39 PM EDT) Urine Urine specimen obtained by clean catch procedure / Unknown 01/22/2025 2:39 PM EDT 01/22/2025 5:34 PM EDT Comment:[facility] Narrative [facility] - 01/24/2025 7:57 AM [...] - GENERAL OR DERABLES Final Result [facility] [address] [place] [phone] * (ABNORMAL) POCT urinalysis dipstick manually [...] Appearance, UA clear QC Media Lot # Comment:[id number] Lot# Expiration Date Comment:03/03/2025 Urine 01/22/2025 2:33 PM EDT Kianna Nunez MD POINT OF CARE TEST ENTER/EDIT ORDERABLES Final Result * Lipid Panel, Standard (12/31/2024 11:02 AM EDT) Triglycerides 71 <150 mg/dL [facility] Comment:Desirable Triglyceri de: less than 150 mg/dLBorderline High Triglyceride 150-199 mg/dLHigh Triglyceride: 200-499 mg/dLVery High Triglyceride: greater than or equal to 5OO mg/dL Cholesterol 147 <200 mg/dL [facility] Comment:Desirable Cholestero l: less than 200 mg/dLBorderline High Cholesterol: 200-239 mg/dLHigh Cholesterol: greater than 239 mg/dL LDL Cholesterol Calculated 64 <100 mg/dL [facility] Comment:Desirable LDL: less than 100 mg/dLNear Optimal/Above Optimal LDL: 110- 129 mg/dLBorderline High LDL: 130-159 mg/dLHigh LDL: 160-189 mg/dLVery High LDL: greater than or equal to 190 mg/dL HDL Cholesterol 69 >40 mg/dL [facility] Comment:Desirable HDL: great er than 40 mg/dL Note: This HDL assay may give artificially low results in patients with liver disease. Blood Venous blood specimen / Unknown 12/31/2024 11:02 AM EDT 12/31/2024 1:19 PM EDT Kianna Nunez MD LAB BLOOD ORDERABLES Final Re sult Performing Organization Address [facility] de Phone Number [facility] [address] [place] [phone] * Hepatitis C Antibody with Reflex to HCV, RNA, Quantitative, Real-Time PCR (05/09/2024 2:01 PM EST) Hepatitis C Antibody Nonreactive Nonreactive [facility] Comment:Antibodies to HCV no t detected; does not exclude early acuteHCV infection. Blood Venous blood specimen / Unknown 05/09/2024 2:01 PM EST 05/09/2024 3:54 PM EST Kianna Nunez MD LAB BLOOD ORDERABLES Final Re sult Performing Organization Address [facility] Co de Phone Number [facility] [address] [place] [phone] * DIGITAL BILATERAL SCREEN 1 (01/10/2019 1:40 PM EDT) Anatomical Region Laterality Modality Breast Bilateral Mammography 01/10/2019 1:40 PM EDT Narrative 01/10/2019 1:43 PM EDT Refer to the Notes tab for result details [facility] Procedure: DIGITAL BILATERAL SCREEN 1 Procedure Note Provider, MD Chacho - 08/26/2022 Refer to the Notes tab for result details Legacy Procedure: DIGITAL BILATERAL SCREEN 1 Jose Syed WATERWORKS CHIEF ENGINEER IMG BI PROCEDURES Final Result from Last 3 Months or Most Recently Relevant to Health Maintenance [facility] Care Teams Tablet Tester Relationship Specialty Start Date End Date Kianna Nunez MD [address] [place] [phone] PCP - General Family Medicine 02/02/20 Kleber Liu MD Gymnastic Coach 06/04/04 Anaya Parikh OD Optometry 04/09/24 Dorian Edouard Commodity Supervisor 06/04/04 [facility] Alternative Dispute Resolution Mediator 04/09/24
--- OUTSIDE RECORDS SUMMARY | 2025-04-06 09:52 | XMS_ITS | Encounter Summary ---
Author Organization [employer] [facility] Address [address] [place] [address] 7t [place] [address] Care Team Providers Care Java Xml Developer Name Role Phone Kianna Nunez MD Primary Care Provider [phone] Encounter Details Date Type Department Care Team (Late Contact Info) Description 08/31/2022 Orders Only [facility] CHC MED & PEDS [address] [place], [place] [phone] Timothy Ibrahim MD [address] [place], [place] [phone] Social History Tobacco Use Types Packs/Day Years [...] Description 04/07/2025 3:00 PM EST Clinical Support [facility] MED & PEDS [address] [place], [place] [phone] 06/29/2025 2:30 PM EST Office Visit [facility] OPTOMETRY [address] [place], [place] [phone] Jenni Morales, OD [address] [place], [place] [phone] documented as of this encounter Procedures Procedure Name Priority Date/Time Associated Diagnosis Comments CULTURE, URINE, ROUTINE Routine 01/05/2023 10:30 AM EDT documented in this encounter Results * Culture, Urine, Routine (01/05/2023 10:30 AM EDT) Urine specimen obtained by clean catch procedure / Unknown 01/05/2023 10:30 AM EDT 01/05/2023 2:58 PM EDT Comment:[facility] - 01/07/2023 7:34 AM EDT Escherichia coli Quant > 100,000 cfu/mL Escherichia coli: Ampicillin >=32(R) Escherichia coli: Ceftriaxone <=0.25(S) Escherichia coli: Gentamicin <=1(S) Escherichia coli: Levofloxacin >=8(R) Escherichia coli: Nitrofurantoin <=16(S) Escherichia coli: Trimethoprim/Sulfamethoxazole <=20(S) Specimen Source: Urine clean catch us Kianna Nunez MD LAB MICROBIOLOGY - GENERAL OR DERABLES Final Result Performing Organization Address City/State/[facility] Co de Phone Number [facility] [address] [place] [phone] documented in this encounter Visit Diagnoses Not on filedocumented in this encounter Care Teams Java Xml Developer Relationship Specialty Start Date End Date Kianna Nunez MD [address] [place] [phone] PCP - General Family Medicine 02/02/20 Kleber Liu MD Collection Card Clerk 06/04/04 Anaya Parikh OD Optometry 04/09/24 Dorian Edouard Ui Lead Developer 06/04/04 [facility] Onion Topper 04/09/24 documented as of this encounter
--- OUTSIDE RECORDS SUMMARY | 2025-04-06 09:52 | XMS_ITS | Encounter Summary ---
Author Organization [employer] Address [address] [place] [address] Care Team Providers Care Slab Tripper Name Role Phone Kianna Nunez MD Primary Care Provider [phone] Reason for Visit * Reason Onset Date Comments restrictions for grand daughter 12/30/2024 Encounter Details Date Type Department Care Team ([facility] st Contact Info) Description 12/30/[address] [facility] MEDICINE [address] [place] [address] Kianna Nunez MD [address] [place], [place] [phone] restrictions for grand daughter Social History Tobacco [...] permission and then telling her daughters in [place] that she is not coming to her appts. Upon review of patient chart, her appt on 01/05 has not been cancelled. However she states that her grand daughter Mendy Nye has cancelled appts in the past.She says she needs to keep this appt because her daughters are comin gin from [place] to meet her PCP and discuss medical concerns. She does not want her grand daughter Mendy Nye to have access toher information DR documented in this encounter Plan of Treatment Upcoming Encounters Date Type Department Care Team (Late st Contact Info) Description 04/07/2025 3:00 PM EST Clinical Support [facility] MED & PEDS [address] [place] [address] 06/29/2025 2:30 PM EST Office Visit [facility] OPTOMETRY [address] [place] [address] Jenni Morales OD [address] [place] [address] documented as of this encounter Visit Diagnoses Not on filedocumented in this encounter Additional Health Concerns Assessment Noted Time PHQ-9 Depression Total Score: 7 12/20/19 25 9:35 AM EDT documented as of this encounter Care Teams Slab Tripper Relationship Specialty Start Date End Date Kianna Nunez MD [address] [place] [address] PCP - General Family Medicine 02/02/20 Kleber Liu MD Account Installation Specialist 06/04/04 Anaya Parikh OD Optometry 04/09/24 Dorian Edouard Electron Tube Assembler 06/04/04 [employer] [facility] Gauge Controller 04/09/24 documented as of this encounter
--- OUTSIDE RECORDS SUMMARY | 2025-04-06 09:52 | XMS_ITS | Encounter Summary ---
Author Organization [facility] Address [address] [place] [address] Care Team Providers Care Trailer Assembler Name Role Phone Kianna Nunez MD Primary Care Provider [phone] Encounter Details Date Type Department Care Team (Late st Contact Info) Description 01/28/2025 Orders Only [facility] [address] [place], [place] [phone] ProviderChacho MD Social History Tobacco Use Types [...] Description 04/07/2025 3:00 PM EST Clinical Support [facility] CHC MED & PEDS [address] [place] [address] 06/29/2025 2:30 PM EST Office Visit [facility] OPTOMETRY [address] [place], [place] [phone] TarkaJenni, OD [address] [place], [place] [phone] documented as of this encounter Procedures Procedure [...] AM EDT Narrative 02/26/2025 1:35 PM EDT [address] [address] Nuclear Medicine Report Signed Patient: Georgiana Earl MR#: [id number] 29 : 1955 Acct:[id number] Age/Sex: 69 / F ADM Date: 02/26/25 Loc: NEELIMA Attending Dr: Paul Rose MD Ordering Physician: Paul Rose MD Date of Service: 02/26/25 Procedure(s): NM renal flow w pharm int Accession Number(s): [id number] cc: Paul Rose MD; Kianna Nunez MD [...] 02/26/25 1332 DD/ 1059 TD/TT: 02/26/25 1230 Tool Sharpener: Procedure Note Donotuseinterpreter, Image - 02/26/2025 [place] [address] Nuclear Medicine Report Signed Patient: Desirae Earl#: [id number] 29 : 1955cct:[id number] Age/Sex: 69 / FADM Date: 02/26/25 Loc: TERAJulianMILLIERICHARDSON Attending Dr: Paul Rose MD Ordering Physician: Paul Rose MD Date of Service: 02/26/25 Procedure(s): NM renal flow w pharm int Accession Number(s): [id number] cc: Paul Rose MD; Kianna Nunez MD [...] 02/26/25 1332 DD/ 1059 TD/TT: 02/26/25 1230 Tool Sharpener: [facility] External Provider IMG NM PROCEDURES Final [...] documented as of this encounter Care Teams Trailer Assembler Relationship Specialty Start Date End Date Kianna Nunez MD [address] [place] [address] PCP - General Family Medicine 02/02/20 Kleber Liu MD Lead Shipper 06/04/04 Anaya Parikh OD Optometry 04/09/24 Dorian Edouard Air Quality Engineer 06/04/04 [employer] [facility] Lead Qa Analyst 04/09/24 documented as of this encounter
--- OUTSIDE RECORDS SUMMARY | 2025-04-06 09:52 | XMS_ITS | Encounter Summary ---
Author Organization [facility] Address [address] [place] [address] Care Team Providers Care Nursing Admin Name Role Phone Kianna Nunez MD Primary Care Provider [phone] Reason for Visit * Reason Onset Date Comments insurance update 10/05/2022 Appointment 10/05/2022 Encounter Details Date Type Department Care Team (Late st Contact Info) Description 10/05/2022 Telephone C [facility] [address] [place] [address] Felisha Burkett DDS insurance update; Appointment Social [...] - 10/05/2022 10:06 AM EDT Bartolo from [facility] called in stating that patient had appt a couple of days ago but was unable to be seen due to apparently having no insurance coverage. She does have coverage through [facility] benefit providers. The id number for the dental portion would be [id number]. Please update insurance info and contact patient for rescheduling DR documented in this encounter Plan of Treatment Upcoming Encounters Date Type Department Care Team (Late st Contact Info) Description 04/07/2025 3:00 PM EST Clinical Support [facility] [address] [place] [address] 06/29/2025 2:30 PM EST Office Visit [facility] [address] [place], [place] [phone] Jenni Morales, OD [address] [place] [address] documented as of this encounter Visit Diagnoses Not on filedocumented in this encounter Care Teams Nursing Admin Relationship Specialty Start Date End Date Kianna Nunez MD [address] [place] [address] PCP - General Family Medicine 02/02/20 Kleber Liu MD Computer Systems Support Specialist 06/04/04 Anaya Parikh OD Optometry 04/09/24 Dorian Edouard [facility] Administrator 06/04/04 [facility] Rig Hand 04/09/24 documented as of this encounter
== END ==
LOC: HO.CARD 09:02
PROVIDERS: PCP Family Medicine; Visit Provider Internal Medicine Cardiovascular Disease
DX: I50.20 Unspecified systolic (congestive) heart failure (principal)
CPT/HCPCS: 93306

== ENCOUNTER → 2025-04-06 09:06 | Outpatient (BNV) | payer OTHER, SELFPAY | PROVIDERS: PCP Family Medicine; Visit Provider Internal Medicine | DX: I51.89 Other ill-defined heart diseases (principal); I51.7 Cardiomegaly; I36.1 Nonrheumatic tricuspid (valve) insufficiency | CPT/HCPCS: 93306 ==

== ENCOUNTER 2025-04-17 07:40 | Outpatient (REF) | payer OTHER, SELFPAY ==
--- NOTE | ~2025-04-17 | CT_ITS ---
EXAMINATION: CT CHEST WITHOUT CONTRAST CLINICAL INFORMATION: Our 91.8 COMPARISON: January 19, 2015 TECHNIQUE: Multidetector volumetric CT imaging of the chest was done. Axial MIP volume rendering provided. Sagittal and coronal reformatted images were obtained. This CT examination was performed using dose optimization techniques as appropriate, variously including the following: *Automated exposure control *Adjustment of mA and/or kV according to patient size (this includes techniques or standardized protocols for targeted exams where dose is matched to indication/reason for exam; i.e. extremities or head) *Use of iterative reconstruction technique DLP: 82 mGy-cm FINDINGS: WELT EDGE ROUNDER: Cardiomediastinal silhouette appears prominent to the left of the thorax. Single electrode left-sided pacemaker. S-shaped curvature of the thoracolumbar spine. LUNGS: Linear and patchy pulmonary groundglass, lower lung lobes, lingula and right middle lung lobe. Round atelectasis in the medial left lung base. Bilateral apical lung scarring. No bronchiectasis. No honeycombing. MEDIASTINUM: Small to moderate volume pericardial effusion. Enlarged left ventricle. Thoracic aorta measures 3.6 cm in the ascending and 3.2 cm in the descending segments. Calcified plaques throughout the thoracic aorta wall and its main branches. There is an aberrant right subclavian artery with a fracture of esophageal trajectory. Stimulator electrode leads in the right ventricle. No pneumomediastinum. No hemopericardium. Heterogeneous prominent thyroid gland. CORONARY ARTERY CALCIFICATION: Calcified plaques. PLEURA: No pleural effusion. No pneumothorax. No hemothorax. No calcified pleural plaques. AXILLA: No lymphadenopathy. UPPER ABDOMEN: 5 cm spleen. 3 cm hypodense nodular lesion left adrenal gland which measures 17 Hounsfield units. Atrophic left kidney with multifocal different size fluid and slightly dense exophytic lesions. Small fluid density in the upper pole right kidney. No hydronephrosis in either kidney. Multifocal hypodense lesions throughout the liver, the largest measures 1.5 cm. No gross ascites. OSSEOUS STRUCTURES: Multilevel spondylosis without acute fracture or listhesis. Intraosseous hemangioma, T12 vertebra. S-shaped curvature of the thoracic spine. No acute fracture in the ribs or the sternum. Metallic reservoir pacemaker in the anterior left upper chest wall. CT/CT chest wo IV con IMPRESSION: Round atelectasis, medial left lung base. Chronic interstitial lung disease without overt acute airspace disease. Concerning aortic valve stenosis with insufficiency component resulting in dilated left ventricle. Ectasia, thoracic aorta. Small to moderate volume pericardial effusion. 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 Coronary artery disease and atherosclerosis disease. Atrophic left kidney with complex hemorrhagic/proteinaceous cystic lesion. 3 cm nodular lesion left adrenal gland. Larger. Consider lipid poor adenoma. Multifocal hypodense lesions, hepatic. Stable. Fleischner guidelines were followed. Electronically signed by: Chase Santiago MD 04/17/2025 08:46 AM [facility]
--- OUTSIDE RECORDS SUMMARY | 2025-04-17 07:43 | XMS_ITS | Encounter Summary ---
Author Organization [employer] Address [address] [place] [address] Care Team Providers Care Nurse Informatics Educator Name Role Phone Kianna uNnez MD Primary Care Provider [phone] Reason for Visit * Reason Onset Date Comments restrictions for grand daughter 12/30/2024 Encounter Details Date Type Department Care Team ([facility] st Contact Info) Description 12/30/2024 Telephone [facility] [address] [place] [address] Kianna Nunez MD [address] [place], [place] [phone] restrictions for grand daughter Social History Tobacco [...] permission and then telling her daughters in [place] that she is not coming to her appts. Upon review of patient chart, her appt on 01/05 has not been cancelled. However she states that her grand daughter Mendy Nye has cancelled appts in the past.She says she needs to keep this appt because her daughters are comin gin from [place] to meet her PCP and discuss medical concerns. She does not want her grand daughter Mendy Nye to have access toher information DR documented in this encounter Plan of Treatment Upcoming Encounters Date Type Department Care Team (Late st Contact Info) Description 06/29/2025 2:30 PM EST Office Visit [facility] [address] [place] [address] Jenni Morales, OD [address] [place] [address] documented as of this encounter Visit Diagnoses Not on filedocumented in this encounter Additional Health Concerns Assessment Noted Time PHQ-9 Depression Total Score: 7 12/20/19 25 9:35 AM EDT documented as of this encounter Care Teams Nurse Informatics Educator Relationship Specialty Start Date End Date Kianna Nunez MD [address] [place] [address] PCP - General Family Medicine 02/02/20 Kleber Liu MD Livestock Inspector 06/04/04 Anaya Parikh OD Optometry 04/09/24 Dorian Edouard Public Welfare Director 06/04/04 [facility] Cleaner 04/09/24 documented as of this encounter
--- OUTSIDE RECORDS SUMMARY | 2025-04-17 07:43 | XMS_ITS | Encounter Summary ---
Author Organization [facility] Address [address] [place] [address] Care Team Providers Care Grey Inspector Name Role Phone Kianna Nunez MD Primary Care Provider [phone] Encounter Details Date Type Department Care Team (Late st Contact Info) Description 01/28/2025 Orders Only [facility] [address] [place], [place] [phone] ProviderChacho MD Social History Tobacco Use Types [...] Description 06/29/2025 2:30 PM EST Office Visit [facility] [address] [place], [place] [phone] Jenni Morales, OD [address] [place] [address] documented as of this encounter Procedures Procedure [...] AM EDT Narrative 02/26/2025 1:35 PM EDT [address] [address] Nuclear Medicine Report Signed Patient: Georgiana Earl MR#: [id number] 28 : 1955 Acct:[id number] Age/Sex: 69 / F ADM Date: 02/26/25 Loc: [facility] Attending Dr: Paul Rose MD Ordering Physician: Paul Rose MD Date of Service: 02/26/25 Procedure(s): NM renal flow w pharm int Accession Number(s): [id number] cc: Paul Rose MD; Kianna Nunez MD [...] 02/26/25 1332 DD/ 1059 TD/TT: 02/26/25 1230 Logistics System Engineer: Procedure Note Donotuseinterpreter, Image - 02/26/[address] [address] Nuclear Medicine Report Signed Patient: Desirae Earl#: [id number] 28 : 4Acct:[id number] Age/Sex: 69 / FADM Date: 02/26/25 Loc: [facility] Attending Dr: Paul Rose MD Ordering Physician: Paul Rose MD Date of Service: 02/26/25 Procedure(s): NM renal flow w pharm int Accession Number(s): [id number] cc: Paul Rose MD; Kianna Nunez MD [...] MD Signed By: <Electronically signed by Clayton Mcdoanld MD in OV> 02/26/25 1332 DD/ 1059 TD/TT: 02/26/25 1230 Logistics System Engineer: [facility] External Provider ELYSIA NM PROCEDURES Final Result [...] documented as of this encounter Care Teams Grey Inspector Relationship Specialty Start Date End Date Kianna Nunez MD [address] [place] [address] PCP - General Family Medicine 02/02/20 Kleber Liu MD Pipe Smoking Machine Operator 06/04/04 Anaya Parikh OD Optometry 04/09/24 Dorian Edouard Nurse Manager 06/04/04 [facility] Inspector Eyeglass Frames 04/09/24 documented as of this encounter
--- OUTSIDE RECORDS SUMMARY | 2025-04-17 07:43 | XMS_ITS | Clinical Summary ---
Author Organization [employer] Address [address] [place] [address] Care Team Providers Care Engineer Steam Name Role Phone Kianna Nunez MD Primary Care Provider [phone] Allergies Active Allergy Reactions Criticality Noted Date [...] DAY FOR 3 DAYS 11/28/19 24 Active hydrOXYzine pamoate (Vistaril) 25 MG [...] MORNING 90 tablet 1 03/09/20 25 Active dexAMETHasone (Decadron) 1 MG tablet Take 1 tablet by mouth Once per day. 02/13/20 25 Active Bisacodyl EC 5 MG EC tablet TAKE 2 TABLETS BY MOUTH AT BEDTIME FOR 2 DAYS 02/06/20 25 Active PEG 2187-XHm-GxBek-Na Cl-NaSulf (PEG-3350/Electro lytes) 236 g reconstituted solution MIX WITH WATER AND DRINK 240 ML BY MOUTH EVERY 10 MINUTES UNTIL FECAL EFFLUENT IS CLEAR. NO MORE THAN 1/2 BOTTLE 02/06/20 25 Active gabapentin (Neurontin) 100 MG capsule Take 1 capsule (100 mg) by mouth 3 times daily. 90 capsule 1 03/30/20 25 Active imipramine (Tofranil) 50 MG tabletIndications :Painful spasm of anus TAKE 1 TABLET BY MOUTH AT BEDTIME 90 tablet 1 04/07/20 25 Active imipramine (Tofranil) 50 MG tabletIndications :Painful spasm of anus TAKE 1 TABLET BY MOUTH AT BEDTIME 90 tablet 1 10/10/19 25 025 Discontinued Active Problems Problem Noted [...] referred for therapy and information given to granddaughter/CHIEF PORT DIRECTOR. Assessment & Plan (04/09/2024 11:16 AM EST): [...] and I will also send her to youth minister. Labs: CBC, Comprehensive Metabolic Panel, Lipid panel, [...] is to refer patientfor OP individual therapy. [facility] crisis line number provided. At this time Georgiana Earl meets criteria for Visit Diagnoses: Problem List Items Addressed This Visit Other Anxiety Housing problems Patient ready to address current needs Yes Strengths include readiness to take action and awareness of the problem PLAN: 1. Follow up with [facility] [place]: Recommended for follow-up: as needed 2. Patient goal is to feel less anxious and be connected with services 3. Behavioral Recommendations a. Referral for OP individual therapy b. Utilize coping mechanisms that works for her to decrease symptoms c. Contact [facility] crisis line if needed (information and [...] is to refer patientfor OP individual therapy. [facility] crisis line number provided. At this time Georgiana Earl meets criteria for Visit Diagnoses: Problem List Items Addressed This Visit Other Anxiety Housing problems Patient ready to address current needs Yes Strengths include readiness to take action and awareness of the problem PLAN: 1. Follow up with [facility] [place]: Recommended for follow-up: as needed 2. Patient goal is to feel less anxious and be connected with services 3. Behavioral Recommendations a. Referral for OP individual therapy b. Utilize coping mechanisms that works for her to decrease symptoms c. Contact [facility] crisis line if needed (information and [...] nutrition supplementation. Stage 5 chronic kidney disease ([facility]/HCC) 021 Gastroesophageal reflux disease 01/23/2018 Anemia due [...] BP medication when she gets back to [place] today. -Seek medical attention if she has concerns. -Medication reconciliation with pharmacy was done today. Asthma 11/06/2011 Nephrolithiasis 11/06/2011 Tobacco user 09/13/2011 Resolved Problems Problem Noted Date Diagnosed Date Resolved Date Physical exam 08/22/2023 04/09/2024 Encounter for health-related screening 05/01/2023 04/09/2024 Assessment & Plan (05/01/2023 2:24 PM EST): -Labs: HIV-1/2, Hep. C-Ab. Encounters Date Type Department Care Team Description 04/09/2025 Telephone [facility] [address] [place] [address] Gisele Salamanca, NETTA Care Coordination 04/07/2025 3:00 PM EST Clinical Support [facility] [address] [place] [address] Concepcion Noyola, NETTA Primary hypertension [I10] 04/07/2025 Telephone [facility] [address] [place] [address] Neetu Goodwin RN 04/07/2025 Travel 04/06/2025 Refill [facility] [address], [place] [phone] Kianna Nunez MD Painful spasm of anus 04/03/[address] Telephone Call 03/30/2025 10:00 AM EDT Office Visit [facility] [address] [place] [address] Kianna Nunez MD Primary hypertension (Primary Dx); Pain; Encounter for immunization; Encounter for vaccination 03/30/2025 Travel 03/27/2025 Telephone [facility] [address] [place] [address] Kianna Nunez MD Chart Prep 03/23/2025 Orders Only GENERIC EXTERNAL DATA DEPARTMENT Provider, Generic External Data 03/11/[address] [address] Kianna Nunez MD 03/08/2025 Refill [facility] [address], [place] [phone] Lara Alanis MD Anxiety; Chronic heart failure, unspecified heart failure type (HCC) 02/27/2025 Telephone [facility] [address] [place] [address] Nutrition referral 02/20/2025 Telephone [facility] [address] [place] [address] Kianna Nunez MD call back needed 02/10/2025 Telephone [facility] [address] [place] [address] Kianna Nunez MD US BREAST ORDER 02/05/2025 Refill [facility] [address], [place] [phone] Kianna Nunez MD 02/03/2025 Refill [facility] [address], [place] [phone] Lara Alanis MD Failure to thrive in adult 01/28/2025 Orders Only [facility] [address] [place] [address] Chacho Romero MD 01/27/2025 Telephone [facility] [address] [place] [address] Kianna Nunez MD 01/23/2025 Telephone [facility] [address], [place] [phone] Kianna Nunez MD Referral 01/22/2025 2:30 PM EDT Office Visit [facility] [address], [place] [phone] Kianna Nunez MD Mass of lower outer quadrant of right breast (Primary Dx); Dysuria 01/22/2025 Travel from Last 3 Months Immunizations Immunization [...] Sign Reading Time Taken Comments Blood Pressure 138/90 04/07/2025 3:24 PM EST Pulse 84 04/07/2025 3:24 PM EST Temperature 37.1 C (98.8 F) 03/30/2025 9:46 AM EDT Respiratory Rate 20 04/07/2025 3:24 PM EST Oxygen Saturation 97% 04/07/2025 3:24 PM EST Inhaled Oxygen Concentration - - Weight 46 kg (101 lb 6.4 oz) 03/30/2025 9:46 AM EDT Height 151 cm (4' 11.45 ) 03/30/2025 9:46 AM EDT Body Mass Index 20.17 03/30/2025 9:46 AM EDT Plan of Treatment Upcoming Encounters Date Type Department Care Team (Late st Contact Info) Description 06/29/2025 2:30 PM EST Office Visit [facility] [address] [place] [address] Jenni Morales, OD [address] [place] [address] Health Maintenance Due Date Last Done Comments CT Colonography 1955 Colonoscopy 1955 Colorectal Cancer Screening 1955 Dental Oral Exam 1955 FIT DNA/Cologuard 1955 FIT 1955 FOBT 1955 Sigmoidoscopy 1955 RSV Patients and Patients Aged 60 years or older (1 - Risk 50-74 years 1-dose series) 2004 Mammogram 01/10/2021 01/10/2019, 12/24/2017 Dental Prophylaxis 07/26/2023 01/22/2023 Dental X-Ray: Bitewings 01/24/2024 01/22/2023 Hepatitis B Vaccines (3 of 3 - 19+ 3-dose series) 02/13/2025 12/19/2024, 02/02/2006 COVID-19 Vaccine ( season) 2025 03/30/2025, 04/09/2024, 08/22/2023, Additional history exists SDOH Screening 11/04/2025 11/04/2024 DTaP/Tdap/Td Vaccines (2 - Td or Tdap) 12/13/2025 12/14/2015, 08/13/2006 Depression Screening 12/19/2025 12/19/2024, 12/20/19 Dental X-Ray: Full Mouth 01/23/2026 01/22/2023 Alcohol/Substance Use Screening 03/30/2026 03/30/2025 Tobacco Screening 03/30/2026 03/30/2025 Lipid Panel 12/31/2029 12/31/2024, 11/2023, 08/21/2022, Additional history exists Pneumococcal Vaccine: 50+ Years Completed 07/03/2022, 10/11/2015, 08/10/2007 Zoster Vaccines Discontinued 07/03/2022, 06/06, 12/14/2015 Hepatitis C Screening Completed 05/09/2024 Influenza Vaccine Completed 03/30/2025, , 03/16/2023, Additional [...] Procedure Name Priority Date/Time Associated Diagnosis Comments DEXAMETHASONE Routine 03/23/2025 8:14 AM EDT METANEPHRINES, FRACT, FREE, LC/MS/MS, PLASMA Routine 03/23/2025 [...] Recently Relevant to Health Maintenance Results * Dexamethasone (03/23/2025 8:14 AM EDT) Dexamethasone <20 ng/dL [facility] Comment:Reference Ranges for Dexamethasone:Baseline: Less than 20 ng/dL1 mg dexamethasone overnight: 180-550 ng/dL (8:00-10:00 AM)This test was developed and its analytical performancecharacteristics have been determined by [employer].It has not been cleared or approved by the FDA. This assayhas been validated pursuant to the CLIA regulations and isused for clinical purposes.THIS TEST WAS PERFORMED AT:[facility]/OCONNOR [id number] [facility] [place] [address]BKKLBLOGAN BOLANOS MD,PHD,WENDY 03/23/2025 8:14 AM EDT 03/23/2025 11:27 AM EDT us Generic External Data Provider LAB BLOOD ORDERAB LES Final Result [facility] [address] [place] [phone] * (ABNORMAL) Metanephrines, Fractionated, Free, LC/MS/MS, Plasma (03/23/2025 8:14 AM EDT) Metanephrine, Free 59(A) <=57 pg/mL [facility] Comment:This test was develo ped and its analytical performancecharacteristics have been determined by [employer] [place], [place]. It hasnot been cleared or approved by the U.S. Food and DrugAdministration. This assay has been validated pursuantto the CLIA regulations and is used for clinicalpurposes. Normetanephrine, Free 383(A) <=148 pg/mL [facility] Comment:This test was develo ped and its analytical performancecharacteristics have been determined by [employer]. It hasnot been cleared or approved by the U.S. Food and DrugAdministration. This assay has been validated pursuantto the CLIA regulations and is used for clinicalpurposes. Total, Free (MN+NMN) 442(A) <=205 pg/mL [facility] Comment: For additional information, please refer tohttp://education.Ubitricity/faq/MetFractFree(This link is being provided for informational/educatioinformational/educational purposes [...] Journal ofClinical Endocrinology # Metabolism 93(1), 91-95, 2008.This test was developed and its analytical performancecharacteristics have been determined by [employer] [place], [place]. It hasnot been cleared or approved by the U.S. Food and DrugAdministration. This assay has been validated pursuantto the CLIA regulations and is used for clinicalpurposes.THIS TEST WAS PERFORMED AT:[facility] [place]/[employer] [id number] [place] [address]OIPGJSISOUMYA CHRISTOPHER MD,PHD 03/23/2025 8:14 AM EDT 03/23/2025 11:01 AM EDT us Generic External Data Provider LAB BLOOD ORDERAB LES Final Result [facility] [address] [place] [phone] * Cortisol Random (03/23/2025 8:14 AM EDT) Cortisol Random 17.0 ug/dL [facility] Comment:Reference Range*: Be fore 10 am 6.2-19.4 ug/dL After 5 pm 2.3-11.9 ug/dL*Please interpret above results accordingly.This test was performed using the Amaral chemiluminescentmethod. Values obtained from different assay methods cannotbe used interchangeably.Patients receiving fludrocortisone, prednisolone orprednisone may show artificially elevated cortisol valuesdue to cross-reactivity. 03/23/2025 8:14 AM EDT 03/23/2025 11:01 AM EDT us Viraloid External Data Provider LAB BLOOD ORDERAB LES Final Result Performing Organization Address [facility]/ZIP Co de Phone Number [facility] [address] [place] [phone] * Vitamin B12 (Cobalamin) and Folate Panel, Serum (03/23/2025 8:14 AM EDT) Vitamin B12 307 200 - 900 pg/mL [facility] Comment:NORMAL 200-900 PG/ML INDETERMINATE 160-199 PG/ML DEFICIENT < 160 PG/ML Folate 13.0 > or = 4.0 ng/mL [facility] Comment:Reference Values:> o r = 4.0 ng/mL< 4.0 ng/mL suggests folate deficiency Methotrexate, aminopterin and folinic acid(leucovorin) are chemotherapeutic agents whose molecularstructures are similar to folate; therefore, the Architectfolate assay cannot be used for patients using these drugs. 03/23/2025 8:14 AM EDT 03/23/2025 11:05 AM EDT us Kianna Nunez MD LAB BLOOD ORDERABLES Final Re sult Performing Organization Address City/[facility]/ZIP Co de Phone Number [facility] [address] [place] [phone] * TSH with Reflex to Free T4 (03/23/2025 8:14 AM EDT) TSH reflex Free T4 1.78 0.32 - 4.0 uIU/mL [facility] 03/23/2025 8:14 AM EDT 03/23/2025 11:01 AM EDT us Kianna Nunez MD LAB BLOOD ORDERABLES Final Re sult [facility] [address] [place] [phone] * HIV-1/2 Antigen and Antibodies, Fourth Generation, with Reflexes (03/23/2025 8:14 AM EDT) HIV AB/AG Nonreactive Nonreactive [facility] Comment:HIV-1 p24 Ag and/or HIV-1/HIV-2 Ab not detected.A test result that is nonreactive does not exclude thepossibility of exposure to or infection with HIV-1 and/orHIV-2. Nonreactive results in this assay for individualswith prior exposure to HIV-1 and/or HIV-2 may be due toantigen and antibody levels that are below the limit ofdetection of this assay.The NitroniThumbAd HIV Ag/Ab Combo assay result andsupplemental assay results should be interpreted inconjunction with the patient's clinical presentation,history and other laboratory results. If the results areinconsistent with clinical evidence, additional testing issuggested to confirm the result. Blood Venous blood specimen / Unknown 03/23/2025 8:14 AM EDT 03/23/2025 11:01 AM EDT us Kianna Nunez MD LAB BLOOD ORDERABLES Final Re sult [facility] [address] [place] [phone] * (ABNORMAL) Basic Metabolic Panel (03/23/2025 8:14 AM EDT) Sodium 146(H) 135 - 145 mmol/L [facility] Potassium 4.6 3.3 - 5.1 mmol/L [facility] Chloride 113(H) 96 - 108 mmol/L [facility] Carbon Dioxide 24 22 - 29 mmol/L [facility] Anion Gap 14 12 - 20 [facility] Urea Nitrogen (BUN) 48(H) 9 - 16 mg/dL [facility] Creatinine, Serum 3.33(H) 0.5 - 1.4 mg/dL [facility] Estimated Glomerular Filt Rate 14 [facility] Comment:Chronic Kidney Disea se: Estimated GFR < 60 mL/min/1.09z7Onpijl Kidney Disease: Estimated GFR < 15 mL/min/1.73m2 Glucose 94 60 - 115 mg/dL [facility] Calcium 8.7 8.4 - 10.2 mg/dL [facility] 03/23/2025 8:14 AM EDT 03/23/2025 11:01 AM EDT us Generic External Data Provider LAB BLOOD ORDERAB LES Final Result Performing Organization Address City/State/[facility] Co de Phone Number [facility] [address] [place] [phone] * NM Kidney Flow/Function w/ Pharmacological Intervention (02/26/2025 10:59 AM EDT) Anatomical Region Laterality Modality Body Nuclear Medicine 02/26/2025 10:5 9 AM EDT Narrative 02/26/2025 1:35 PM EDT [address] [address] Nuclear Medicine Report Signed Patient: Georgiana Earl MR#: [id number] [birth year] : 1955 Acct:[id number] Age/Sex: 69 / F ADM Date: 02/26/25 Loc: [facility] Attending Dr: Paul Rose MD Ordering Physician: Paul Rose MD Date of Service: 02/26/25 Procedure(s): NM renal flow w pharm int Accession Number(s): [id number] cc: Paul Rose MD; Kianna Nunez MD [...] 02/26/25 1332 DD/ 1059 TD/TT: 02/26/25 1230 Cloth Roll Winder: Procedure Note Donotuseinterpreter, Image - 02/26/[address] [address] Nuclear Medicine Report Signed Patient: Desirae Earl#: [id number] 29 : 4Acct:[id number] Age/Sex: 69 / FADM Date: 02/26/25 Loc: [facility] Attending Dr: Paul Rose MD Ordering Physician: Paul Rose MD Date of Service: 02/26/25 Procedure(s): NM renal flow w pharm int Accession Number(s): [id number] cc: Paul Rose MD; Kianna Nunez MD [...] 02/26/25 1332 DD/ 1059 TD/TT: 02/26/25 1230 Cloth Roll Winder: [facility] External Provider IMG NM PROCEDURES Final [...] EDT 01/22/2025 5:34 PM EDT Comment:UACC Narrative [facility] - 01/24/2025 7:57 AM EDT [...] OR DERABLES Final Result Performing Organization Address City/State/[facility] Co de Phone Number [facility] [address] [place] [phone] * (ABNORMAL) POCT urinalysis dipstick manually [...] Appearance, UA clear QC Media Lot # Comment:[id number] Lot# Expiration Date Comment:03/03/2025 Urine 01/22/2025 2:33 PM EDT Kianna Nunez MD POINT OF CARE TEST ENTER/EDIT ORDERABLES Final Result * Lipid Panel, Standard (12/31/2024 11:02 AM EDT) Triglycerides 71 <150 mg/dL [facility] Comment:Desirable Triglyceri de: less than 150 mg/dLBorderline High Triglyceride 150-199 mg/dLHigh Triglyceride: 200-499 mg/dLVery High Triglyceride: greater than or equal to 5OO mg/dL Cholesterol 147 <200 mg/dL [facility] Comment:Desirable Cholestero l: less than 200 mg/dLBorderline High Cholesterol: 200-239 mg/dLHigh Cholesterol: greater than 239 mg/dL LDL Cholesterol Calculated 64 <100 mg/dL [facility] Comment:Desirable LDL: less than 100 mg/dLNear Optimal/Above Optimal LDL: 110- 129 mg/dLBorderline High LDL: 130-159 mg/dLHigh LDL: 160-189 mg/dLVery High LDL: greater than or equal to 190 mg/dL HDL Cholesterol 69 >40 mg/dL [facility] Comment:Desirable HDL: great er than 40 mg/dL Note: This HDL assay may give artificially low results in patients with liver disease. Blood Venous blood specimen / Unknown 12/31/2024 11:02 AM EDT 12/31/2024 1:19 PM EDT us Kianna Nunez MD LAB BLOOD ORDERABLES Final Re sult Performing Organization Address [facility] Co de Phone Number [facility] [address] [place] [phone] * Hepatitis C Antibody with Reflex to HCV, RNA, Quantitative, Real-Time PCR (05/09/2024 2:01 PM EST) Hepatitis C Antibody Nonreactive Nonreactive [facility] Comment:Antibodies to HCV no t detected; does not exclude early acuteHCV infection. Blood Venous blood specimen / Unknown 05/09/2024 2:01 PM EST 05/09/2024 3:54 PM EST us Kianna Nunez MD LAB BLOOD ORDERABLES Final Re sult Performing Organization Address [facility] Co de Phone Number [facility] [address] [place] [phone] * DIGITAL BILATERAL SCREEN 1 (01/10/2019 [...] DIGITAL BILATERAL SCREEN 1 us Jose Syed BREAST TRIMMER IMG BI PROCEDURES Final Result from Last 3 Months or Most Recently Relevant to Health Maintenance Insurance [address] [place] [address] [facility] [address] [place] [phone] Care Teams Engineer Steam Relationship Specialty Start Date End Date Kianna Nunez MD [address] [place] [phone] PCP - General Family Medicine 02/02/20 Kleber Liu MD Conservation Coordinator 06/04/04 Anaya Parikh OD Optometry 04/09/24 Dorian Edouard Edger Runner 06/04/04 [facility] Telephone Instrument Supervisor 04/09/24
--- OUTSIDE RECORDS SUMMARY | 2025-04-17 07:43 | XMS_ITS | Encounter Summary ---
Author Organization [employer] Address [address] [place] [address] Care Team Providers Care Observer Helper Name Role Phone Kianna Nunez MD Primary Care Provider [phone] Reason for Visit * Reason Comments Med Refill Encounter Details Date Type Department Care Team ([facility] st Contact Info) Description 09/24/2024 Refill [facility] [address] [place] [address] Kianna Nunez MD [address] [place] [address] Pain Social History Tobacco Use Types Packs/Day [...] Description 06/29/2025 2:30 PM EST Office Visit [facility] [address] [place] [address] Jenni Morales OD [address] [place] [address] documented as of this encounter Visit Diagnoses Diagnosis Pain Generalized pain documented in this encounter Additional Health Concerns Assessment Noted Time PHQ-9 Depression Total Score: 18 024 10:34 AM EST documented as of this encounter Care Teams Observer Helper Relationship Specialty Start Date End Date Kianna Nunez MD [address] [place] [address] PCP - General Family Medicine 02/02/20 Kleber Liu MD Charge Coordinator 06/04/04 Anaya Parikh OD Optometry 04/09/24 Dorian Edouard Center Machine Set Up Operator 06/04/04 [facility] Photographer Apprentice Lithographic 04/09/24 documented as of this encounter
--- OUTSIDE RECORDS SUMMARY | 2025-04-17 07:43 | XMS_ITS | Encounter Summary ---
Author Organization [employer] Address [address] [place] [address] Care Team Providers Care Price Changer Name Role Phone Kianna Nunez MD Primary Care Provider [phone] Reason for Visit * Reason Onset Date Comments call back needed 02/20/2025 Encounter Details Date Type Department Care Team ([facility] st Contact Info) Description 02/20/2025 Telephone [facility] [address] [place] [address] Kianna Nunez MD [address] [place], [place] [phone] call back needed Social History Tobacco Use [...] - 02/20/2025 4:50 PM EDT TC from [place] with [facility] requesting a call back due to [...] Description 06/29/2025 2:30 PM EST Office Visit [facility] [address] [place], [place] [phone] Jenni Morales, OD [address] [place] [address] documented as of this encounter Visit Diagnoses Not on filedocumented in this encounter Additional Health Concerns Assessment Noted Time PHQ-9 Depression Total Score: 7 12/20/19 25 9:35 AM EDT documented as of this encounter Care Teams Price Changer Relationship Specialty Start Date End Date Kianna Nunez MD [address] [place] [address] PCP - General Family Medicine 02/02/20 Kleber Liu MD Software Quality Assurance Analyst 06/04/04 Anaya Parikh OD Optometry 04/09/24 Dorian Edouard Fish Cleaner Machine Tender 06/04/04 [facility] Forest Management Teacher 04/09/24 documented as of this encounter
--- OUTSIDE RECORDS SUMMARY | 2025-04-17 07:43 | XMS_ITS | Encounter Summary ---
Author Organization [employer] Address [address] [place] [address] Care Team Providers Care Buttermaker Helper Name Role Phone Kianna Nunez MD Primary Care Provider [phone] Reason for Visit * Reason Onset Date Comments Pre-op Exam 11/15/2023 Encounter Details Date Type Department Care Team ([facility] st Contact Info) Description 11/15/2023 Telephone [facility] [address] [place] [address] Kianna Nnuez MD [address] [place] [address] Pre-op Exam Social History Tobacco Use Types [...] with others, in a hotel, in a assisted, living outside on the street, on a [...] no Surgeon's name: Dr. Agustin Facility name: [facility] Surgeon's office number: [phone] Surgeon's office fax number: [phone] Contact name (person you spoke with): Kelli Last office note from surgeon requested: Pre-Op notes documented in this encounter Plan of Treatment Upcoming Encounters Date Type Department Care Team (Late st Contact Info) Description 06/29/2025 2:30 PM EST Office Visit [facility] [address] [place] [address] Jenni Morales, OD [address] [place] [address] documented as of this encounter Visit Diagnoses Not on filedocumented in this encounter Additional Health Concerns Assessment Noted Time PHQ-9 Depression Total Score: 0 05/01/20 23 2:20 PM EST documented as of this encounter Care Teams Buttermaker Helper Relationship Specialty Start Date End Date Kianna Nunez MD [address] [place] [address] PCP - General Family Medicine 02/02/20 Kleber Liu MD Peanut Sorter 06/04/04 Anaya Parikh OD Optometry 04/09/24 Dorian Edouard Architectural Engineer 06/04/04 [facility] Cigar Patcher 04/09/24 documented as of this encounter
--- OUTSIDE RECORDS SUMMARY | 2025-04-17 07:43 | XMS_ITS | Encounter Summary ---
Author Organization [employer] [facility] Address [address] [place] [address] Care Team Providers Care Hard Hat Diver Name Role Phone Kianna Nunez MD Primary Care Provider [phone] Encounter Details Date Type Department Care Team ([facility] Contact Info) Description 08/31/2022 Orders Only [facility] CHC MED & PEDS [address] [place], [place] [phone] Timothy Ibrahim MD [address] [place] [address] Social History Tobacco Use Types Packs/Day Years [...] Department Care Team (Late Contact Info) Description 06/29/2025 2:30 PM EST Office Visit [facility] OPTOMETRY [address] [place], [place] [phone] TarJenni isbell, OD [address] [place] [address] documented as of this encounter Procedures Procedure Name Priority Date/Time Associated Diagnosis Comments CULTURE, URINE, ROUTINE Routine 01/05/2023 10:30 AM EDT documented in this encounter Results * Culture, Urine, Routine (01/05/2023 10:30 AM EDT) Urine specimen obtained by clean catch procedure / Unknown 01/05/2023 10:30 AM EDT 01/05/2023 2:58 PM EDT Comment:[facility] - 01/07/2023 7:34 AM EDT Escherichia coli Quant > 100,000 cfu/mL Escherichia coli: Ampicillin >=32(R) Escherichia coli: Ceftriaxone <=0.25(S) Escherichia coli: Gentamicin <=1(S) Escherichia coli: Levofloxacin >=8(R) Escherichia coli: Nitrofurantoin <=16(S) Escherichia coli: Trimethoprim/Sulfamethoxazole <=20(S) Specimen Source: Urine clean catch us Kianna Nunez MD LAB MICROBIOLOGY - GENERAL OR DERABLES Final Result Performing Organization Address City/State/[facility] Co de Phone Number [facility] [address] [place] [phone] documented in this encounter Visit Diagnoses Not on filedocumented in this encounter Care Teams Hard Hat Diver Relationship Specialty Start Date End Date Kianna Nunez MD [address] [place] [phone] PCP - General Family Medicine 02/02/20 Kleber Liu MD Municipal Services Manager 06/04/04 Anaya Parikh OD Optometry 04/09/24 Dorian Edouard Movie Editor 06/04/04 [facility] Classification Analyst 04/09/24 documented as of this encounter
--- OUTSIDE RECORDS SUMMARY | 2025-04-17 07:43 | XMS_ITS | Encounter Summary ---
Author Organization [employer] [facility] Address [address] [place] [address] Care Team Providers Care Glove Parts Cutter Name Role Phone Kianna Nunez MD Primary Care Provider [phone] Reason for Visit * Reason Onset Date Comments insurance update 10/05/2022 Appointment 10/05/2022 Encounter Details Date Type Department Care Team (Late st Contact Info) Description 10/05/2022 Telephone [facility] ADULT DENTAL [address] [place] [address] Felisha Burkett DDS insurance update; Appointment Social [...] 10/05/2022 10:06 AM EDT Bartolo from [facility] called in stating that patient had appt a couple of days ago but was unable to be seen due to apparently having no insurance coverage. She does have coverage through [facility] benefit providers. The id number for the dental portion would be [id number]. Please update insurance info and contact patient for rescheduling DR documented in this encounter Plan of Treatment Upcoming Encounters Date Type Department Care Team (Late st Contact Info) Description 06/29/2025 2:30 PM EST Office Visit C OPTOMETRY [address] [place] [address] Jenni Morales, OD [address] [place] [address] documented as of this encounter Visit Diagnoses Not on filedocumented in this encounter Care Teams Glove Parts Cutter Relationship Specialty Start Date End Date Kianna Nunez MD [address] [place], [place] [phone] PCP - General Family Medicine 02/02/20 Kleber Liu MD Political Cartoonist 06/04/04 Anaya Parikh OD Optometry 04/09/24 Dorian Edouard Finisher Wallboard And Plasterboard 06/04/04 [facility] Sanitarian Technician 04/09/24 documented as of this encounter
--- OUTSIDE RECORDS SUMMARY | 2025-04-17 07:43 | XMS_ITS | Encounter Summary ---
Author Organization [employer] Address [address] [place] [address] Care Team Providers Care C 13 Catapult Operator Name Role Phone Kianna Nunez MD Primary Care Provider [phone] Reason for Visit * Reason Onset Date Comments Nurse Triage 01/08/2024 Encounter Details Date Type Department Care Team ([facility] st Contact Info) Description 01/08/2024 Telephone [facility] MEDICINE [address] [place] [address] Kianna Nunez MD [address] [place], [place] [phone] Nurse Triage Social History Tobacco Use Types [...] with others, in a hotel, in a usp, living outside on the street, on a [...] to speak for Pt. Pt only speaks mosotho. Pt has been having some rectal bleeding [...] 01/08/2024 2:20 PM EDT Triage call with [place] Assistant Service Manager [place] [id number]. Call to [phone] unable to get connection, callto [phone] unable to get connection. * Telephone Encounter - Ruba Hinson - 01/08/2024 2:09 PM EDT Symptoms: Body Aches, Urination Pain Outcome: Schedule an urgent appointment (within 1 hour) or talk to a nurse or provider soon Reason: Severe pain now The caller accepted this outcome Please contact at [phone] documented in this encounter Plan of Treatment Upcoming Encounters Date Type Department Care Team (Late st Contact Info) Description 06/29/2025 2:30 PM EST Office Visit [facility] OPTOMETRY [address] [place] [address] Jenni Morales OD [address] [place] [address] documented as of this encounter Visit Diagnoses Not on filedocumented in this encounter Additional Health Concerns Assessment Noted Time PHQ-9 Depression Total Score: 0 05/01/20 23 2:20 PM EST documented as of this encounter Care Teams C 13 Catapult Operator Relationship Specialty Start Date End Date Kianna Nunez MD [address] [place] [address] PCP - General Family Medicine 02/02/20 Kleber Liu MD Rag Production Worker 06/04/04 Anaya Parikh OD Optometry 04/09/24 Dorian Edouard Clinical Exercise Physiologist 06/04/04 [facility] Import Export Clerk 04/09/24 documented as of this encounter
--- OUTSIDE RECORDS SUMMARY | 2025-04-17 07:43 | XMS_ITS | Clinical Summary ---
Author Organization [facility] Address [address] [place] [address] Phone Care Team Providers Care Garland Machine Operator Name Role Phone Kianna Nunez MD Primary Care Provider [phone] Encounters Date Type Department Care Team Description 01/27/2025 10:45 AM EDT - 01/27/2025 11:59 PM EDT Hospital Encounter [facility] PET Scan [address] [place] [address] Other nonspecific abnormal finding of [...] Signed Date: 01/28/2025 12:32 ET Workstation ID: [id number] Transcribed By: Self Edit Transcribed Date: 01/28/2025 [...] Signed Date: 01/28/2025 12:32 ET Workstation ID: [id number] Transcribed By: Self Edit Transcribed Date: 01/28/2025 12:23 ET Paul Andre MD IM NM PROCEDURES Final Result from [place] [address] [place] [address] [facility] Care Teams Garland Machine Operator Relationship Specialty Start Date End Date Kianna Nunez MD [address] [place] [address] PCP - General 08/27/23
--- OUTSIDE RECORDS SUMMARY | 2025-04-17 07:43 | XMS_ITS | Encounter Summary ---
Author Organization [email or web address] [facility] Address [address] [place] [address] Care Team Providers Care Hand Stemmer Name Role Phone Kianna Nunez MD Primary Care Provider [phone] Encounter Details Date Type Department Care Team (Late st Contact Info) Description 04/07/2025 Telephone [facility] [address] [place] [address] Neetu Goodwin, RN [address] [place] [address] Social History Tobacco Use Types Packs/Day Years [...] Description 06/29/2025 2:30 PM EST Office Visit [facility] OPTOMETRY [address] [place] [address] Jenni Morales OD [address] [place] [address] documented as of this encounter Visit Diagnoses Not on filedocumented in this encounter Additional Health Concerns Assessment Noted Time PHQ-9 Depression Total Score: 7 12/20/19 25 9:35 AM EDT documented as of this encounter Care Teams Hand Stemmer Relationship Specialty Start Date End Date Kianna Nunez MD [address] [place] [address] PCP - General Family Medicine 02/02/20 Kleber Liu MD Perishable Freight Inspector 06/04/04 Anaya Parikh OD Optometry 04/09/24 Dorian Edouard Secondary Connector Armature 06/04/04 [facility] Commercial Stripper 04/09/24 documented as of this encounter
--- OUTSIDE RECORDS SUMMARY | 2025-04-17 07:43 | XMS_ITS | Encounter Summary ---
Author Organization [employer] [facility] Address [address] [place] [address] Care Team Providers Care Private Investigator Name Role Phone Kianna Nunez MD Primary Care Provider [phone] Reason for Visit * Reason Comments Med Refill Encounter Details Date Type Department Care Team (Late st Contact Info) Description 02/20/2023 Refill [facility] CHC MED & PEDS [address] [place], [place] [phone] Kianna Nunez MD [address] [place], [place] [phone] Primary hypertension Social History Tobacco Use Types [...] Description 06/29/2025 2:30 PM EST Office Visit [facility] OPTOMETRY [address] [place], [place] [phone] Jenni Morales, OD [address] [place], [place] [phone] documented as of this encounter Visit Diagnoses Diagnosis Primary hypertension Unspecified essential hypertension documented in this encounter Care Teams Private Investigator Relationship Specialty Start Date End Date Kianna Nunez MD [address] [place] [address] PCP - General Family Medicine 02/02/20 Kleber Liu MD Body Press Operator 06/04/04 Anaya Parikh OD Optometry 04/09/24 Dorian Edouard District Traffic Chief 06/04/04 [facility] Porcelain Finisher 04/09/24 documented as of this encounter
== END 2025-04-17 07:41 | disposition home or self-care (01) ==
LOC: HO.CT 07:40
PROVIDERS: PCP Family Medicine; Visit Provider Internal Medicine Pulmonary Disease
DX: R91.8 Other nonspecific abnormal finding of lung field (principal)
CPT/HCPCS: 71250

== ENCOUNTER → 2025-04-17 07:42 | Outpatient (BNV) | payer OTHER, SELFPAY | PROVIDERS: PCP Family Medicine; Visit Provider Radiology Diagnostic Radiology | DX: J98.11 Atelectasis (principal); J84.9 Interstitial pulmonary disease, unspecified; I31.39 Other pericardial effusion (noninflammatory); I25.10 Atherosclerotic heart disease of native coronary artery without angina pectoris | CPT/HCPCS: 71250 ==

== ENCOUNTER 2025-04-21 12:35 | Outpatient (AMB) | payer OTHER, SELFPAY ==
--- NOTE | 2025-04-21 12:41 | A.OFFVIS_ITS ---
Vital Signs 04/21/25 12:50 Height 5 ft 4 in Weight 101 lb 6.602 oz BMI 17.4 BP 116/62 Blood Pressure Location Rt brachial Position Sitting Pulse 85 Pulse Source Pulse Oximeter Pulse Oximetry (%) 98 Oxygen Delivery Method Room Air Intake Visit Reasons: Follow-up Adrenal Gland, CT Scan Results Intake Note: Patient presents here today for a follow-up on Disorder of Adrenal Gland: * CT Abdomen WO/W Contrast: Completed on 04/17/2025 Electronics Assembler Required: Yes Electronics Assembler Language: Registered Sales Assistant Services: Electronics Assembler Offered & Declined (DR [place] Speak Fluent Czech) Accompanied by: Self / Same As Patient Allergies Iodinated Contrast Media (CONTRAST,IV) Allergy (Severe, Verified 04/21/25 12:42) ANGIOEDEMA HPI Comments Details: 69 years all female with past medical history of coronary artery disease status post ICD, AAA, heart failure with reduced ejection fraction, adrenal nodule, substance use disorder, seen in the office for evaluation of adrenal nodule. The patient reports that she was experiencing significant abdominal and anal pain with the presence of blood. The patient reports weight loss over the past 2 to 3 months, along with fatigue, headaches, and blurred vision. Adrenal nodule was incidentally found to on the left adrenal gland, which have slightly increased in size since the last imaging she had. She denies increased thirst, hypertension, increased appetite. Interval history: She unfortunately was unable to complete her blood work ordered during the last visit A CT scan w/wo contrast was ordered but given CKD, it was cancelled and an MRI ordered but she has a PM, we are waiting for clearance from cardiology for PM compatibility. She reports feeling overall, no recent hospitalizations She reports fatigue but denies elevated BG or HTN Physical exam: General: Well appearing. NAD. Not Cushingoid or Acromegalic Neck/Thyroid: Thyroid not palpable, no nodules. Eyes: No conjunctival injection, not lid lag or proptosis CV: RRR, no murmur. No edema. Resp:Lungs clear to auscultation bilaterally Abdomen: Soft, nontender. nondistended Extremities/Neuro: No weakness or tremor of outstretched hands Labs Laboratory Tests 03/23/25 08:14 Sodium 146 H Potassium 4.6 Chloride 113 H Carbon Dioxide 24 Anion Gap 14 BUN 48 H Creatinine 3.33 H Estimated GFR 14 Random Glucose 94 Calcium 8.7 TSH 1.78 Random Cortisol 17.0 Plasma Free Metaneph 59 H Plasma Free Normeta 383 H Plas Total Metaneph 442 H Labs reviewed corresponding to December and October of 2024 in the ranges shown below - Sodium: High (146-145) - Potassium: Normal (3.4-3.9) - Creatinine: Elevated (2.48-2.84) - Blood glucose: Normal (95-96) Imaging CT lung 04/17/25 FINDINGS: STEEL CUTTER: Cardiomediastinal silhouette appears prominent to the left of the thorax. Single electrode left-sided pacemaker. S-shaped curvature of the thoracolumbar spine. LUNGS: Linear and patchy pulmonary groundglass, lower lung lobes, lingula and right middle lung lobe. Round atelectasis in the medial left lung base. Bilateral apical lung scarring. No bronchiectasis. No honeycombing. MEDIASTINUM: Small to moderate volume pericardial effusion. Enlarged left ventricle. Thoracic aorta measures 3.6 cm in the ascending and 3.2 cm in the descending segments. Calcified plaques throughout the thoracic aorta wall and its main branches. There is an aberrant right subclavian artery with a fracture of esophageal trajectory. Stimulator electrode leads in the right ventricle. No pneumomediastinum. No hemopericardium. Heterogeneous prominent thyroid gland. CORONARY ARTERY CALCIFICATION: Calcified plaques. PLEURA: No pleural effusion. No pneumothorax. No hemothorax. No calcified pleural plaques. AXILLA: No lymphadenopathy. UPPER ABDOMEN: 5 cm spleen. 3 cm hypodense nodular lesion left adrenal gland which measures 17 Hounsfield units. Atrophic left kidney with multifocal different size fluid and slightly dense exophytic lesions. Small fluid density in the upper pole right kidney. No hydronephrosis in either kidney. Multifocal hypodense lesions throughout the liver, the largest measures 1.5 cm. No gross ascites. OSSEOUS STRUCTURES: Multilevel spondylosis without acute fracture or listhesis. Intraosseous hemangioma, T12 vertebra. S-shaped curvature of the thoracic spine. No acute fracture in the ribs or the sternum. Metallic reservoir pacemaker in the anterior left upper chest wall. IMPRESSION: Round atelectasis, medial left lung base. Chronic interstitial lung disease without overt acute airspace disease. Concerning aortic valve stenosis with insufficiency component resulting in dilated left ventricle. Ectasia, thoracic aorta. Small to moderate volume pericardial effusion. 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 Coronary artery disease and atherosclerosis disease. Atrophic left kidney with complex hemorrhagic/proteinaceous cystic lesion. 3 cm nodular lesion left adrenal gland. Larger. Consider lipid poor adenoma. Multifocal hypodense lesions, hepatic. Stable. CT abdomen 10/28/24 FINDINGS: LOWER CHEST: There is scarring at the right lung base. There is a 2.0 cm masslike density at the medial aspect of the left lung base. There is no pleural effusion. CARDIOVASCULATURE: The heart is enlarged. Pacemaker wires are noted. There is no pericardial effusion. LIVER: The liver is normal in size and contour. There are cysts within the liver measuring up to 1.2 cm in size without change. GALLBLADDER / BILE DUCTS: The gallbladder is unremarkable. There is no intra or extrahepatic biliary ductal dilatation. SPLEEN: The spleen is normal in size and has an unremarkable unenhanced appearance. PANCREAS: The pancreas has an unremarkable unenhanced appearance. ADRENAL GLANDS: There has been further enlargement of a left adrenal mass which now measures 2.4 x 2.5 cm in size (previously 1.9 x 1.8 cm). This measures 15 HU in density and is indeterminate for adenoma. There is a 2nd adrenal mass on the left which is new measuring 2.0 x 1.3 cm. This measures 12 HU in density. KIDNEYS/RETROPERITONEUM: No renal calculi are identified. There is mild right hydroureteronephrosis to the bladder. No obstructing calculus is identified. The left kidney is atrophic. There is a 0.8 cm hyperdense lesion at the upper pole. There is no left hydronephrosis. LYMPH NODES: No retroperitoneal lymphadenopathy is identified in the abdomen or pelvis. VASCULATURE: There is aneurysmal dilatation of the suprarenal abdominal aorta measuring up to 3.4 cm in size. MESENTERY/PERITONEUM: No free fluid. No masses. There is no free intraperitoneal gas. STOMACH: The stomach is collapsed, limiting evaluation. SMALL BOWEL: The small bowel is normal in caliber. COLON: The colon is unremarkable. APPENDIX: The appendix is not seen, however no inflammatory changes are seen adjacent to the cecum. URINARY BLADDER/PELVIC ORGANS: The urinary bladder is collapsed, limiting evaluation. The patient is status post hysterectomy. BONES / SOFT TISSUES: There is degenerative disc disease of the spine. IMPRESSION: 1. 2.0 cm masslike density at the medial aspect of the left lung base. 2. Interval enlargement of the previously seen left adrenal mass. Interval development of a 2nd left adrenal mass. Metastatic disease is not excluded. 3. Mild right hydroureteronephrosis to the level of the bladder. No obstructing calculus is identified. 8 mm hyperdense lesion at the upper pole of the left kidney. Urology consult should be considered. [facility] Medical History Acute pyelonephritis E coli bacteremia Rectal candidiasis Urinary tract infection UTI (urinary tract infection) Cocaine use disorder Cocaine use disorder in remission MDD (major depressive disorder), recurrent severe, without psychosis Hx of sepsis History of asthma Hyperlipidemia HTN (hypertension) Cardiomyopathy ICD (implantable cardioverter-defibrillator) in place CAD (coronary artery disease) Chronic heart failure with reduced ejection fraction and diastolic dysfunction GERD (gastroesophageal reflux disease) Surgical History History of surgery Hx of cystoscopy H/O hemorrhoidectomy Stented coronary artery Hx of colonoscopy Family History Father Diabetes HTN (hypertension) Mother Diabetes HTN (hypertension) Sister Throat cancer Family/Other Colon cancer Social History Household Members: None Housing: Apartment Are you a primary nurse healthcare manager to a significant other at home: No Do you presently have visiting nurse or other home services: No Alcohol intake: never Comment: sleeping Patient Tobacco Use Status: Current everyday Tobacco user Tobacco use type: Cigarette Cigarette Packs Per Day: 2 Cigarettes Per Day: 40.0 Years Smoked: 38 e-Cigarette/Vaping Use: Never Used Second Hand Smoke Exposure: Yes Substance Use Type: Marijuana Advance Directives Date on File: 04/26/21 service: No Current occupational status: unemployed and disabled Sexual orientation: Straight/Heterosexual Physical Exam Exam Exam: General: Alert, well-nourished, no acute distress. Thin looking Neck: Supple, no thyromegaly Cardiac:Regular rate and rhythm, no murmurs. no edema. Lungs: Clear to auscultation bilaterally. Abdomen: Soft, non-tender, no organomegaly. No violaceous striae Extremities: No ulcers, lesions, or edema Neuro: Alert, oriented. Cranial nerves intact. sensation normal to monofilament testing. Skin: Warm, dry, intact. No rashes or ulcers. Vital Signs: Last Vital Signs Pulse 85 04/21/25 12:50 BP 116/62 04/21/25 12:50 Pulse Ox 98 04/21/25 12:50 Oxygen Delivery Method Room Air 04/21/25 12:50 BMI result Body Mass Index 17.4 Assessment & Plan Assessment & Plan (1) Adrenal nodule: Code(s): E27.9 - Disorder of adrenal gland, unspecified Category: Medical Plan: Assessment Incidentally found Adrenal gland nodules. Most recent CT lung showed a 3 cm adrenal nodule, CT abdomen done previously 10/28/2024 showed a 2.4 x 2.5 cm in size (previously 1.9 x 1.8 cm). This measures 15 HU in density and is indeterminate for adenoma. There is a 2nd adrenal mass on the left which is new measuring 2.0 x 1.3 cm. This measures 12 HU in density. Metastatic disease not excluded. She does have 2.0 cm masslike density in the left lung base. Main concerns at this point remain potential for hormone overproduction or malignancy. Her plasma metanephrines were elevated, but we note that this does have a low specificity and high sensitivity, hence ordering urine metanephrines (this has high specificity but low sensitivity) is necessary. I do think that based on her symptoms and physical exam findings, the pretest probability for this patie nt to have pheochromocytoma is low, despite adrenal nodule size. For indeterminate, non-functional adrenal lesions, management options include repeat imaging in 3?6 months versus surgical resection, upon discussion with the patient, she opted for follow up imaging. Recommendations - Perform hormonal studies including dexamethasone suppression test and midnight salivary cortisol level. - would refrain from obtaining aldosterone and renin given that the patient has no history of hypertension and no evidence of persistent hypokalemia - Urine metanephrines - MRI of adrenal nodule pending compatibility of pacemaker. - Follow-up 3 months or after the completion of all tests to discuss results and further management. Plan 30 minutes spent reviewing previous records, labs, imaging, education and documenting in the chart Orders: Orders Metanephrines, Random Urine Today E27.9 - Disorder of adrenal gland, unspecified Patient Instructions: - Amee rosa el estudio de la saliva (2 huynh seguidos) y luego el de la pastilla a las 11pm. Instrucciones para la Prueba de Supresi?n con Dexametasona ?Para qu? sirve esta prueba? Esta prueba ayuda a evaluar c?mo responde koch cuerpo a la dexametasona, un medicamento que suprime la producci?n de cortisol. Preparaci?n: * Informe a koch m?dico sobre todos los medicamentos que est? tomando, ya que algunos pueden interferir con la prueba. * No suspenda mickey?n medicamento sin indicaci?n m?dica.Indicaciones: [place] 1 tableta de dexametasona de 1 mg por v?a oral a las 11:00 p.m. (23:00 horas) la noche anterior al an?lisis de selena.No coma ni gwen nada, excepto agua, despu?s de la medianoche.Acuda al laboratorio a la ma?gabriella siguiente, entre las 7:00 y 9:00 a.m., para que le extraigan yovani muestra de selena.Lleve consigo esta hoja de instrucciones. Notas importantes: * No olvide aimee la dexametasona exactamente a la hora indicada. * Si olvida aimee la tableta, informe al laboratorio antes de la extracci?n de selena. Instrucciones para la Recolecci?n de Cortisol Salival a Medianoche ?Para qu? sirve esta prueba? Esta prueba mide el nivel de cortisol en la saliva, especialmente ?til para el diagn?stico de trastornos hormonales. Preparaci?n: * No coma, gwen, fume ni se cepille los dientes nohemi al menos 30 minutos antes de la recolecci?n. * Evite el estr?s y la actividad f?pawan intensa la noche de la prueba.Indicaciones: Recoja la muestra de saliva exactamente a la medianoche (12:00 a.m.).Utilice el kit de recolecci?n proporcionado (tubo o dispositivo especial).Morteza el tubo y deje que la saliva fluya de forma natural hacia el recipiente, sin escupir con fuerza.Cierre van el tubo y col?quelo en el refrigerador hasta que lo lleve al laboratorio.Anote la hora exacta de la recolecci?n en la etiqueta del tubo. Notas importantes: * Si tiene dudas sobre el procedimiento, consulte con el personal del laboratorio antes de la recolecci?n. * Lleve la muestra al laboratorio lo antes posible, preferiblemente en la ma?gabriella siguiente. Coding Level of Care Code Est Pt Level 4 (54354) Diagnoses Adrenal nodule E27.9
[2025-04-21 12:50] VITALS: BP 116/62; PULSE 85; O2SAT 98; BMI 17.4
== END 2025-04-21 13:56 | disposition home or self-care (01) ==
LOC: HO.ENCR 12:35
PROVIDERS: PCP Family Medicine; Visit Provider Student in an Organized Health Care Education/Training Program
DX: E27.9 Disorder of adrenal gland, unspecified (principal)
CPT/HCPCS: 99214

== ENCOUNTER → 2025-04-21 12:35 | Outpatient (BNVA) | payer OTHER, SELFPAY | PROVIDERS: PCP Family Medicine; Visit Provider Student in an Organized Health Care Education/Training Program | DX: Z71.2 Person consulting for explanation of examination or test findings (principal); E27.9 Disorder of adrenal gland, unspecified | CPT/HCPCS: 99212 ==

== ENCOUNTER 2025-04-23 08:20 | Outpatient (REF) | payer OTHER, SELFPAY ==
--- OUTSIDE RECORDS SUMMARY | 2025-04-23 08:52 | XMS_ITS | Encounter Summary ---
Author Organization [employer] Address [address] [place] [address] Care Team Providers Care Optical Instrument Inspector Name Role Phone Kianna Nunez MD Primary Care Provider [phone] Reason for Visit * Reason Onset Date Comments Pre-op Exam 11/15/2023 Encounter Details Date Type Department Care Team ([facility] st Contact Info) Description 11/15/2023 Telephone [facility] CHC MED & PEDS [address] [place] [address] Kianna Nunez MD [address] [place] [address] Pre-op Exam Social History Tobacco Use Types [...] needed: no EKG: no Surgeon's name: Dr. gAustin Facility name: [facility] Surgeon's office number: [phone] Surgeon's office fax number: [phone] Contact name (person you spoke with): Kelli Last office note from surgeon requested: Pre-Op notes documented in this encounter Plan of Treatment Upcoming Encounters Date Type Department Care Team (Late st Contact Info) Description 06/29/2025 2:30 PM EST Office Visit [facility] OPTOMETRY [address] [place] [address] StarkaJenni, OD [address] [place] [address] 06/30/2025 8:45 AM EST Office Visit [facility] ADULT DENTAL [address] [place] [address] She, Caitlin [address] [place] [address] documented as of this encounter Visit Diagnoses Not on filedocumented in this encounter Additional Health Concerns Assessment Noted Time PHQ-9 Depression Total Score: 0 05/01/20 23 2:20 PM EST documented as of this encounter Care Teams Optical Instrument Inspector Relationship Specialty Start Date End Date Kianna Nunez MD [address] [place] [address] PCP - General Family Medicine 02/02/20 Kleber Liu MD Multimedia Production Assistant 06/04/04 Anaya Parikh OD Optometry 04/09/24 Dorian Edouard Section 8 Property Manager 06/04/04 [facility] Automatic Wheel Line Operator 04/09/24 documented as of this encounter
--- OUTSIDE RECORDS SUMMARY | 2025-04-23 08:52 | XMS_ITS | Encounter Summary ---
Author Organization [email or web address] [facility] Address [address] [place] [address] Care Team Providers Care Turbine Blade Assembler Name Role Phone iKanna Nunze MD Primary Care Provider [phone] Encounter Details Date Type Department Care Team (Late st Contact Info) Description 01/28/2025 Orders Only [facility] [address] [place], [place] [phone] ProviderChacho MD Social History Tobacco Use Types [...] [facility] OPTOMETRY [address] [place] [address] Jenni Morales, OD [address] [place] [address] 06/30/2025 8:45 AM EST Office Visit [facility] ADULT DENTAL [address] [place] [address] She, Caitlin [address] [place] [address] documented as of this encounter Procedures Procedure [...] AM EDT Narrative 02/26/2025 1:35 PM EDT [address] [address] Nuclear Medicine Report Signed Patient: Georgiana Earl MR#: [id number] 29 : 1955 Acct:[id number] Age/Sex: 69 / F ADM Date: 02/26/25 Loc: [facility] Attending Dr: Paul Rose MD Ordering Physician: Paul Rose MD Date of Service: 02/26/25 Procedure(s): NM renal flow w pharm int Accession Number(s): [id number] cc: Paul Rose MD; Kianna Nunez MD [...] 02/26/25 1332 DD/ 1059 TD/TT: 02/26/25 1230 Shotgun Shell Reprinting Unit Operator: Procedure Note Donotuseinterpreter, Image - 02/26/[address] [address] Nuclear Medicine Report Signed Patient: Georgiana EarlMR#: [id number] 28 : 4Acct:[id number] Age/Sex: 69 / FADM Date: 02/26/25 Loc: NEELIMA Attending Dr: Paul Rose MD Ordering Physician: Paul Rose MD Date of Service: 02/26/25 Procedure(s): NM renal flow w pharm int Accession Number(s): [id number] cc: Paul Rose MD; Kianna Nunez MD [...] 02/26/25 1332 DD/ 1059 TD/TT: 02/26/25 1230 Shotgun Shell Reprinting Unit Operator: [facility] External Provider IM NM PROCEDURES Final Result [...] documented as of this encounter Care Teams Turbine Blade Assembler Relationship Specialty Start Date End Date Kianna Nunez MD [address] [place] [address] PCP - General Family Medicine 02/02/20 Kleber Liu MD Fishing Boat Captain 06/04/04 Anaya Parikh OD Optometry 04/09/24 Dorian Edouard Family Resource Management Professor 06/04/04 [facility] Grip Wrapper 04/09/24 documented as of this encounter
--- OUTSIDE RECORDS SUMMARY | 2025-04-23 08:52 | XMS_ITS | Encounter Summary ---
Author Organization [employer] [facility] Address [address] [place] [address] Care Team Providers Care Pot Operator Name Role Phone Kianna Nunez MD Primary Care Provider [phone] Encounter Details Date Type Department Care Team (Late st Contact Info) Description 04/07/2025 Telephone [facility] WALK-IN CENTER [address] [place] [address] Neetu Goodwin, RN [address] [place] [address] Social History Tobacco Use Types Packs/Day Years [...] 2:30 PM EST Office Visit [facility] OPTOMETRY [address] [place] [address] Jenni Morales, OD [address] [place] [address] 06/30/2025 8:45 AM EST Office Visit [facility] ADULT DENTAL [address] [place] [address] She, Caitlin [address] [place] [address] documented as of this encounter Visit Diagnoses Not on filedocumented in this encounter Additional Health Concerns Assessment Noted Time PHQ-9 Depression Total Score: 7 12/20/19 25 9:35 AM EDT documented as of this encounter Care Teams Pot Operator Relationship Specialty Start Date End Date Kianna Nunez MD [address] [place] [address] PCP - General Family Medicine 02/02/20 Kleber Liu MD [employer] Marketing 06/04/04 Anaya Parikh OD Optometry 04/09/24 Dorian Edouard Sheet Metal Worker Helper 06/04/04 [facility] Missionary Coordinator 04/09/24 documented as of this encounter
--- OUTSIDE RECORDS SUMMARY | 2025-04-23 08:52 | XMS_ITS | Encounter Summary ---
Author Organization [employer] [facility] Address [address] [place] [address] Care Team Providers Care Survey And Mapping Technician Name Role Phone Kianna Nunez MD Primary Care Provider [phone] Reason for Visit * Reason Comments Med Refill Encounter Details Date Type Department Care Team (Late st Contact Info) Description 02/20/2023 Refill [facility] CHC MED & PEDS [address] [place], [place] [phone] Kianna Nunez MD [address] [place], [place] [phone] Primary hypertension Social History Tobacco Use Types [...] Description 06/29/2025 2:30 PM EST Office Visit [facility] OPTOMETRY [address] [place], [place] [phone] Jenni Morales, OD [address] [place], [place] [phone] 06/30/2025 8:45 AM EST Office Visit [facility] ADULT DENTAL [address] [place], [place] [phone] Caitlin Nowak [address] [place], [place] [phone] documented as of this encounter Visit Diagnoses Diagnosis Primary hypertension Unspecified essential hypertension documented in this encounter Care Teams Survey And Mapping Technician Relationship Specialty Start Date End Date Kianna Nunez MD [address] [place] [address] PCP - General Family Medicine 02/02/20 Kleber Liu MD Lead Bi Developer 06/04/04 Anaya Parikh OD Optometry 04/09/24 Dorian Edouard Laundry Tech 06/04/04 [facility] Oscillograph Technician 04/09/24 documented as of this encounter
--- OUTSIDE RECORDS SUMMARY | 2025-04-23 08:52 | XMS_ITS | Encounter Summary ---
Author Organization [employer] Address [address] [place] [address] Care Team Providers Care Coagulating Drying Supervisor Name Role Phone Kianna Nunez MD Primary Care Provider [phone] Reason for Visit * Reason Onset Date Comments call back needed 02/20/2025 Encounter Details Date Type Department Care Team ([facility] st Contact Info) Description 02/20/2025 Telephone [facility] MEDICINE [address] [place] [address] Kianna Nunez MD [address] [place], [place] [phone] call back needed Social History Tobacco Use [...] - 02/20/2025 4:50 PM EDT TC from [place] with [facility] requesting a call back due to [...] Description 06/29/2025 2:30 PM EST Office Visit [facility] OPTOMETRY [address] [place] [address] TarkaJenni, OD [address] [place] [address] 06/30/2025 8:45 AM EST Office Visit [facility] ADULT DENTAL [address] [place] [address] Caitlin Nowak [address] [place] [address] documented as of this encounter Visit Diagnoses Not on filedocumented in this encounter Additional Health Concerns Assessment Noted Time PHQ-9 Depression Total Score: 7 12/20/19 25 9:35 AM EDT documented as of this encounter Care Teams Coagulating Drying Supervisor Relationship Specialty Start Date End Date Kianna Nunez MD [address] [place] [address] PCP - General Family Medicine 02/02/20 Kleber Liu MD Real Estate Teacher 06/04/04 Anaya Parikh OD Optometry 04/09/24 Dorian Edouard Sr. Director Product Management 06/04/04 [facility] Human Services Care Specialist 04/09/24 documented as of this encounter
--- OUTSIDE RECORDS SUMMARY | 2025-04-23 08:52 | XMS_ITS | Encounter Summary ---
Author Organization [employer] Address [address] [place] [address] Care Team Providers Care Dock Operator Name Role Phone Kianna Nunez MD Primary Care Provider [phone] Reason for Visit * Reason Onset Date Comments Nurse Triage 01/08/2024 Encounter Details Date Type Department Care Team ([facility] st Contact Info) Description 01/08/2024 Telephone [facility] MEDICINE [address] [place] [address] Kianna Nunez MD [address] [place], [place] [phone] Nurse Triage Social History Tobacco Use Types [...] with others, in a hotel, in a group home, living outside on the street, on [...] to speak for Pt. Pt only speaks barbadian. Pt has been having some rectal bleeding [...] 01/08/2024 2:20 PM EDT Triage call with [facility] [employer] [place] [id number]. Call to [phone] unable to get connection, callto [phone] unable to get connection. * Telephone Encounter - Ruba Hinson - 01/08/2024 2:09 PM EDT Symptoms: Body Aches, Urination Pain Outcome: Schedule an urgent appointment (within 1 hour) or talk to a nurse or provider soon Reason: Severe pain now The caller accepted this outcome Please contact at [phone] documented in this encounter Plan of Treatment Upcoming Encounters Date Type Department Care Team (Late st Contact Info) Description 06/29/2025 2:30 PM EST Office Visit [facility] OPTOMETRY [address] [place] [address] Tarsukhi Jenni, OD [address] [place] [address] 06/30/2025 8:45 AM EST Office Visit [facility] ADULT DENTAL [address] [place] [address] She, Caitlin [address] [place] [address] documented as of this encounter Visit Diagnoses Not on filedocumented in this encounter Additional Health Concerns Assessment Noted Time PHQ-9 Depression Total Score: 0 05/01/20 23 2:20 PM EST documented as of this encounter Care Teams Dock Operator Relationship Specialty Start Date End Date Kianna Nunez MD [address] [place] [address] PCP - General Family Medicine 02/02/20 Kleber Liu MD Construction Job Titles 06/04/04 Anaya Parikh OD Optometry 04/09/24 Dorian Edouard Pipe Fitter Supervisor Maintenance 06/04/04 [facility] Food Service Supervisor 04/09/24 documented as of this encounter
--- OUTSIDE RECORDS SUMMARY | 2025-04-23 08:52 | XMS_ITS | Encounter Summary ---
Author Organization [employer] Address [address] [place] [address] Care Team Providers Care Rod Buster Name Role Phone Kianna Nunez MD Primary Care Provider [phone] Reason for Visit * Reason Comments Med Refill Encounter Details Date Type Department Care Team ([facility] st Contact Info) Description 09/24/2024 Refill [facility] CHC MED & PEDS [address] [place] [address] Kianna Nunez MD [address] [place] [address] Pain Social History Tobacco Use Types Packs/Day [...] Description 06/29/2025 2:30 PM EST Office Visit [facility] OPTOMETRY [address] [place] [address] Jenni Morales OD [address] [place] [address] 06/30/2025 8:45 AM EST Office Visit [facility] ADULT DENTAL [address] [place] [address] She, Caitlin [address] [place] [address] documented as of this encounter Visit Diagnoses Diagnosis Pain Generalized pain documented in this encounter Additional Health Concerns Assessment Noted Time PHQ-9 Depression Total Score: 18 024 10:34 AM EST documented as of this encounter Care Teams Rod Buster Relationship Specialty Start Date End Date Kianna Nunez MD [address] [place] [address] PCP - General Family Medicine 02/02/20 Kleber Liu MD Technical Manager Chemical Plant 06/04/04 Anaya Parikh OD Optometry 04/09/24 Dorian Edouard Bottle Machine Operator 06/04/04 [facility] Natural Gas Technician 04/09/24 documented as of this encounter
--- OUTSIDE RECORDS SUMMARY | 2025-04-23 08:53 | XMS_ITS | Encounter Summary ---
Author Organization [employer] Address [address] [place] [address] Care Team Providers Care Kaiwhakahaere Name Role Phone Kianna Nnuez MD Primary Care Provider [phone] Reason for Visit * Reason Onset Date Comments restrictions for grand daughter 12/30/2024 Encounter Details Date Type Department Care Team ([facility] st Contact Info) Description 12/30/2024 Telephone [facility] MEDICINE [address] [place] [address] Kianna Nunez MD [address] [place], [place] [phone] restrictions for grand daughter Social History Tobacco [...] 2:30 PM EST Office Visit [facility] OPTOMETRY [address] [place] [address] Jenni Morales, OD [address] [place] [address] 06/30/2025 8:45 AM EST Office Visit [facility] ADULT DENTAL [address] [place] [address] Caitlin Nowak [address] [place] [address] documented as of this encounter Visit Diagnoses Not on filedocumented in this encounter Additional Health Concerns Assessment Noted Time PHQ-9 Depression Total Score: 7 12/20/19 25 9:35 AM EDT documented as of this encounter Care Teams Kaiwhakahaere Relationship Specialty Start Date End Date Kianna Nunez MD [address] [place] [address] PCP - General Family Medicine 02/02/20 Kleber Liu MD Cellular Phone Repairer 06/04/04 Anaya Parikh OD Optometry 04/09/24 Dorian Edouard Production Controller 06/04/04 [facility] Drafting Clerk 04/09/24 documented as of this encounter
--- OUTSIDE RECORDS SUMMARY | 2025-04-23 08:53 | XMS_ITS | Encounter Summary ---
Author Organization [employer] Address [address] [place] [address] Care Team Providers Care Tile Sprayer Name Role Phone Kianna Nunez MD Primary Care Provider [phone] Encounter Details Date Type Department Care Team (Late Contact Info) Description 08/31/2022 Orders Only [facility] CHC MED & PEDS [address] [place], [place] [phone] Timothy Ibrahim MD [address] [place] [address] Social History Tobacco Use Types Packs/Day Years [...] Description 06/29/2025 2:30 PM EST Office Visit [facility] OPTOMETRY [address] [place], [place] [phone] TarkaJenni, OD [address] [place] [address] 06/30/2025 8:45 AM EST Office Visit [facility] ADULT DENTAL [address] [place] [address] Caitlin Nowak [address] [place] [address] documented as of this encounter Procedures Procedure Name Priority Date/Time Associated Diagnosis Comments CULTURE, URINE, ROUTINE Routine 01/05/2023 10:30 AM EDT documented in this encounter Results * Culture, Urine, Routine (01/05/2023 10:30 AM EDT) Urine specimen obtained by clean catch procedure / Unknown 01/05/2023 10:30 AM EDT 01/05/2023 2:58 PM EDT Comment:[facility] - 01/07/2023 7:34 AM EDT Escherichia coli Quant > 100,000 cfu/mL Escherichia coli: Ampicillin >=32(R) Escherichia coli: Ceftriaxone <=0.25(S) Escherichia coli: Gentamicin <=1(S) Escherichia coli: Levofloxacin >=8(R) Escherichia coli: Nitrofurantoin <=16(S) Escherichia coli: Trimethoprim/Sulfamethoxazole <=20(S) Specimen Source: Urine clean catch us Kianna Nunez MD LAB MICROBIOLOGY - GENERAL OR DERABLES Final Result Performing Organization Address City/State/[facility] Co de Phone Number [facility] [address] [place] [phone] documented in this encounter Visit Diagnoses Not on filedocumented in this encounter Care Teams Tile Sprayer Relationship Specialty Start Date End Date Kianna Nunez MD [address] [place] [address] PCP - General Family Medicine 02/02/20 Kleber Liu MD Data Clerk 06/04/04 Anaya Parikh OD Optometry 04/09/24 Dorian Edouard Chart Computer 06/04/04 [facility] Director Of Instruction 04/09/24 documented as of this encounter
--- OUTSIDE RECORDS SUMMARY | 2025-04-23 08:53 | XMS_ITS | Clinical Summary ---
Author Organization [employer] Address [address] [place] [address] Care Team Providers Care Assembly Worker Name Role Phone Kianna Nunez MD Primary Care Provider [phone] Allergies Active Allergy Reactions Criticality Noted Date [...] by mouth every other day. 90 tablet 1 12/20/19 25 Active Anoro Ellipta 62.5-25 MCG/ACT aerosol powder 12/27/19 25 Active atorvastatin (Lipitor) 40 MG tabletIndications :Hyperlipidemia, unspecified hyperlipidemia type TAKE 1 TABLET BY MOUTH AT BEDTIME 90 tablet 1 5 3:27 PM EST 01/08/20 25 Active isosorbide mononitrate ER (Imdur) 30 MG 24 hr tabletIndications :Chronic heart failure, unspecified heart failure type (HCC) TAKE 1 TABLET BY MOUTH EVERY MORNING 90 tablet 1 5 3:27 PM EST 01/08/20 25 Active pantoprazole (ProtoNix) 40 MG EC tabletIndications :Gastroesophageal reflux disease, unspecified whether esophagitis present TAKE 1 TABLET BY MOUTH EVERY MORNING 90 tablet 1 5 3:27 PM EST 01/08/20 25 Active Calcium + Vitamin D3 [...] MORNING AND IN THE EVENING 90 tablet 5 01/08/20 25 Active Fluticasone-Salme terol (Advair Diskus) 250-50 MCG/ACT aerosol powder Inhale 1 puff 2 times daily. INHALE 1 PUFF BY MOUTH TWICE DAILY RINSE MOUTH AFTER USING. 60 each 5 01/08/20 25 Active mirtazapine (Remeron) 30 MG [...] FOR 2 DAYS 02/06/20 25 Active PEG 4657-PPp-BhVrm-Na Cl-NaSulf (PEG-3350/Electro lytes) 236 g reconstituted solution [...] BY MOUTH AT BEDTIME 90 tablet 1 5 3:27 PM EST 04/07/20 25 Active imipramine (Tofranil) 50 MG [...] referred for therapy and information given to granddaughter/MANAGER COLLEGE. Assessment & Plan (04/09/2024 11:16 AM EST): [...] and I will also send her to [facility]. Labs: CBC, Comprehensive Metabolic Panel, Lipid panel, [...] is to refer patientfor OP individual therapy. [facility] crisis line number provided. At [...] for her to decrease symptoms c. Contact [facility] crisis line if needed (information [...] is to refer patientfor OP individual therapy. [facility] crisis line number provided. At [...] for her to decrease symptoms c. Contact [facility] crisis line if needed (information [...] BP medication when she gets back to [place] today. -Seek medical attention if she has concerns. -Medication reconciliation with pharmacy was done today. Asthma 11/06/2011 Nephrolithiasis 11/06/2011 Tobacco user 09/13/2011 Resolved Problems Problem Noted Date Diagnosed Date Resolved Date Physical exam 08/22/2023 04/09/2024 Encounter for health-related screening 05/01/2023 04/09/2024 Assessment & Plan (05/01/2023 2:24 PM EST): -Labs: HIV-1/2, Hep. C-Ab. Encounters Date Type Department Care Team Description 04/09/[address] [facility] [address] [place] [phone] Gisele Salamanca, NETTA Care Coordination 04/07/2025 3:00 PM EST Clinical Support [facility] [address] [place] [address] Concepcion Noyola, RN Primary hypertension [I10] 04/07/[address] [facility] [address] [place] [phone] Neetu Goodwin, NETTA 04/07/2025 Travel 04/06/2025 Refill [facility] [address] [place] [address] Kianna Nunez MD Painful spasm of anus 04/03/[address] Telephone Call 03/30/2025 10:00 AM EDT Office Visit [facility] [address] [place] [address] Kianna Nunez MD Primary hypertension (Primary Dx); Pain; Encounter for immunization; Encounter for vaccination 03/30/2025 Travel 03/27/2025 Telephone [facility] [address] [place] [address] Kianna Nunez MD Chart Prep 03/23/2025 Orders Only GENERIC EXTERNAL DATA DEPARTMENT Provider, Generic External Data 03/11/[address] [address] Kianna Nunez MD 03/08/2025 Refill [facility] [address] [place] [address] Lara Alanis MD Anxiety; Chronic heart failure, unspecified heart failure type (HCC) 02/27/[address] [facility] [address] [place] [address] Nutrition referral 02/20/[address] [facility] [address] [place] [address] Kianna Nunez MD call back needed 02/10/2025 Telephone [facility] [address] [place] [address] Kianna Nunez MD US BREAST ORDER 02/05/2025 Refill [facility] [address] [place] [address] Kianna Nunez MD 02/03/2025 Refill [facility] [address] [place] [address] Lara Alanis MD Failure to thrive in adult 01/28/2025 Orders Only [facility] [address] [place] [address] Chacho Romero MD 01/27/2025 Telephone [facility] [address] [place] [address] Kianna Nunez MD 01/23/2025 Telephone [facility] [address] [place], [place] [phone] Kianna Nunez MD Referral 01/22/2025 2:30 PM EDT Office Visit [facility] [address] [place], [place] [phone] Kianna Nunez MD Mass of lower outer [...] Description 06/29/2025 2:30 PM EST Office Visit [facility] [address] [place] [address] Jenni Morales, OD [address] [place] [address] 06/30/2025 8:45 AM EST Office Visit [facility] [address] [place] [address] [place] [address] Health Maintenance Due Date Last Done Comments [...] 08/13/2006 Depression Screening 12/19/2025 12/19/2024, 12/20/19 25 Dental X-Ray: Full Mouth 01/23/2026 01/22/2023 Alcohol/Substance Use Screening 03/30/2026 03/30/2025 Tobacco Screening 03/30/2026 03/30/2025 Lipid Panel 12/31/2029 12/31/2024, 1211/2023, 08/21/2022, Additional [...] Procedure Name Priority Date/Time Associated Diagnosis Comments CT CHEST WO CONTRAST Routine 04/17/2025 8:03 AM EST DEXAMETHASONE Routine 03/23/2025 8:14 AM EDT METANEPHRINES, [...] Recently Relevant to Health Maintenance Results * CT Chest w/o Contrast (04/17/2025 8:03 AM EST) Anatomical Region Laterality Modality Body, Chest Computed Tomogra phy 04/17/2025 8:03 AM EST Narrative 04/17/2025 8:49 AM EST [place] [address] [address] Scan Report Signed Patient: Georgiana Earl MR#: [id number] [birth year] : 1955 Acct:[id number] Age/Sex: 70 / F ADM Date: 04/17/25 Loc: HO.CT Attending Dr: Paul Andre MD Ordering Physician: Paul Andre MD Date of Service: 04/17/25 Procedure(s): CT chest wo IV con Accession Number(s): [id number] cc: Paul Andre MD; Kianna Nunez MD Report Number: [id number]: Total DLP = 82.00 mGy-cm Reason for Exam: R91.8 - Other nonspecific abnormal finding of lung field EXAMINATION: CT CHEST WITHOUT CONTRAST CLINICAL INFORMATION: Our 91.8 COMPARISON: January 19, 2015 TECHNIQUE: Multidetector volumetric CT imaging of the chest was done. Axial MIP volume rendering provided. Sagittal and coronal reformatted images were obtained. This CT examination was performed using dose optimization techniques as appropriate, variously including the following: *Automated exposure control *Adjustment of mA and/or kV according to patient size (this includes techniques or standardized protocols for targeted exams where dose is matched to indication/reason for exam; i.e. extremities or head) *Use of iterative reconstruction technique DLP: 82 mGy-cm FINDINGS: EARLY INTERVENTIONIST: Cardiomediastinal silhouette appears prominent to the left of the thorax. Single electrode left-sided pacemaker. S-shaped curvature of the thoracolumbar spine. LUNGS: Linear and patchy pulmonary groundglass, lower lung lobes, lingula and right middle lung lobe. Round atelectasis in the medial left lung base. Bilateral apical lung scarring. No bronchiectasis. No honeycombing. MEDIASTINUM: Small to moderate volume pericardial effusion. Enlarged left ventricle. Thoracic aorta measures 3.6 cm in the ascending and 3.2 cm in the descending segments. Calcified plaques throughout the thoracic aorta wall and its main branches. There is an aberrant right subclavian artery with a fracture of esophageal trajectory. Stimulator electrode leads in the right ventricle. No pneumomediastinum. No hemopericardium. Heterogeneous prominent thyroid gland. CORONARY ARTERY CALCIFICATION: Calcified plaques. PLEURA: No pleural effusion. No pneumothorax. No hemothorax. No calcified pleural plaques. AXILLA: No lymphadenopathy. UPPER ABDOMEN: 5 cm spleen. 3 cm hypodense nodular lesion left adrenal gland which measures 17 Hounsfield units. Atrophic left kidney with multifocal different size fluid and slightly dense exophytic lesions. Small fluid density in the upper pole right kidney. No hydronephrosis in either kidney. Multifocal hypodense lesions throughout the liver, the largest measures 1.5 cm. No gross ascites. OSSEOUS STRUCTURES: Multilevel spondylosis without acute fracture or listhesis. Intraosseous hemangioma, T12 vertebra. S-shaped curvature of the thoracic spine. No acute fracture in the ribs or the sternum. Metallic reservoir pacemaker in the anterior left upper chest wall. CT/CT chest wo IV con IMPRESSION: Round atelectasis, medial left lung base. Chronic interstitial lung disease without overt acute airspace disease. Concerning aortic valve stenosis with insufficiency component resulting in dilated left ventricle. Ectasia, thoracic aorta. Small to moderate volume pericardial effusion. 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 Coronary artery disease and atherosclerosis disease. Atrophic left kidney with complex hemorrhagic/proteinaceous cystic lesion. 3 cm nodular lesion left adrenal gland. Larger. Consider lipid poor adenoma. Multifocal hypodense lesions, hepatic. Stable. Fleischner guidelines were followed. Electronically signed by: Chase Santiago MD 04/17/2025 08:46 AM EST Dictated By: Chase Jernigan MD Signed By: <Electronically signed by Chase Bobby MD in OV> 04/17/25 0846 DD/ 0803 TD/TT: 04/17/25 0831 Feller Machine Operator: Procedure Note Donotuseinterpreter, Image - 04/17/[address] [place] [address] [address] Scan Report Signed Patient: Georgiana EarlMR#: [id number] 29 : 1955cct:[id number] Age/Sex: 70 / FADM Date: 04/17/25 Loc: HO.CT Attending Dr: Paul Andre MD Ordering Physician: Paul Andre MD Date of Service: 04/17/25 Procedure(s): CT chest wo IV con Accession Number(s): [id number] cc: Paul Andre MD; Kianna Nunez MD Report Number: [id number]: Total DLP = 82.00 mGy-cm Reason for Exam: R91.8 - Other nonspecific abnormal finding of lung field EXAMINATION: CT CHEST WITHOUT CONTRAST CLINICAL INFORMATION: Our 91.8 COMPARISON: January 19, 2015 TECHNIQUE: Multidetector volumetric CT imaging of the chest was done. Axial MIP volume rendering provided. Sagittal and coronal reformatted images were obtained. This CT examination was performed using dose optimization techniques as appropriate, variously including the following: *Automated exposure control *Adjustment of mA and/or kV according to patient size (this includes techniques or standardized protocols for targeted exams where dose is matched to indication/reason for exam; i.e. extremities or head) *Use of iterative reconstruction technique DLP: 82 mGy-cm FINDINGS: EARLY INTERVENTIONIST: Cardiomediastinal silhouette appears prominent to the left of the thorax. Single electrode left-sided pacemaker. S-shaped curvature of the thoracolumbar spine. LUNGS: Linear and patchy pulmonary groundglass, lower lung lobes, lingula and right middle lung lobe. Round atelectasis in the medial left lung base. Bilateral apical lung scarring. No bronchiectasis. No honeycombing. MEDIASTINUM: Small to moderate volume pericardial effusion. Enlarged left ventricle. Thoracic aorta measures 3.6 cm in the ascending and 3.2 cm in the descending segments. Calcified plaques throughout the thoracic aorta wall and its main branches. There is an aberrant right subclavian artery with a fracture of esophageal trajectory. Stimulator electrode leads in the right ventricle. No pneumomediastinum. No hemopericardium. Heterogeneous prominent thyroid gland. CORONARY ARTERY CALCIFICATION: Calcified plaques. PLEURA: No pleural effusion. No pneumothorax. No hemothorax. No calcified pleural plaques. AXILLA: No lymphadenopathy. UPPER ABDOMEN: 5 cm spleen. 3 cm hypodense nodular lesion left adrenal gland which measures 17 Hounsfield units. Atrophic left kidney with multifocal different size fluid and slightly dense exophytic lesions. Small fluid density in the upper pole right kidney. No hydronephrosis in either kidney. Multifocal hypodense lesions throughout the liver, the largest measures 1.5 cm. No gross ascites. OSSEOUS STRUCTURES: Multilevel spondylosis without acute fracture or listhesis. Intraosseous hemangioma, T12 vertebra. S-shaped curvature of the thoracic spine. No acute fracture in the ribs or the sternum. Metallic reservoir pacemaker in the anterior left upper chest wall. CT/CT chest wo IV con IMPRESSION: Round atelectasis, medial left lung base. Chronic interstitial lung disease without overt acute airspace disease. Concerning aortic valve stenosis with insufficiency component resulting in dilated left ventricle. Ectasia, thoracic aorta. Small to moderate volume pericardial effusion. 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 Coronary artery disease and atherosclerosis disease. Atrophic left kidney with complex hemorrhagic/proteinaceous cystic lesion. 3 cm nodular lesion left adrenal gland. Larger. Consider lipid poor adenoma. Multifocal hypodense lesions, hepatic. Stable. Fleischner guidelines were followed. Electronically signed by: Chase Santiago MD 04/17/2025 08:46 AM [facility] Dictated By: Chase Jernigan MD Signed By: <Electronically signed by Chase Bobby MDin OV> 04/17/25 0846 DD/ 2 TD/TT: 04/17/25 08 Feller Machine Operator: [facility] External Provider IMG CT PROCEDURES Final Result * Dexamethasone (03/23/2025 8:14 AM EDT) Dexamethasone <20 ng/dL [facility] Comment:Reference Ranges for Dexamethasone:Baseline: Less than 20 ng/dL1 mg dexamethasone overnight: 180-550 ng/dL (8:00-10:00 AM)This test was developed and its analytical performancecharacteristics have been determined by [email or web address].It has not been cleared or approved by the FDA. This assayhas been validated pursuant to the CLIA regulations and isused for clinical purposes.THIS TEST WAS PERFORMED AT:[id number] [place] [address]XEFMRLOGAN BOLANOS MD,PHD,WENDY 03/23/2025 8:14 AM EDT 03/23/2025 11:27 AM EDT Generic External Data Provider LAB BLOOD ORDERAB LES Final Result [facility] [address] [place] [phone] * (ABNORMAL) Metanephrines, Fractionated, Free, LC/MS/MS, Plasma (03/23/2025 8:14 AM EDT) Metanephrine, Free 59(A) <=57 pg/mL [facility] Comment:This test was develo ped and its analytical performancecharacteristics have been determined by [employer] [place] It hasnot been cleared or approved by the U.S. Food and DrugAdministration. This assay has been validated pursuantto the CLIA regulations and is used for clinicalpurposes. Normetanephrine, Free 383(A) <=148 pg/mL [facility] Comment:This test was develo ped and its analytical performancecharacteristics have been determined by [employer] [place], [place]. It hasnot been cleared or approved by the U.S. Food and DrugAdministration. This assay has been validated pursuantto the CLIA regulations and is used for clinicalpurposes. Total, Free (MN+NMN) 442(A) <=205 pg/mL [facility] Comment: For additional information, please refer tohttp://education.[employer]/faq/Met[employer]ractFree(This link is being provided for informational/educatioinformational/educational purposes [...] its analytical performancecharacteristics have been determined by [employer] [place], [place]. It hasnot been cleared or approved by the U.S. Food and DrugAdministration. This assay has been validated pursuantto the CLIA regulations and is used for clinicalpurposes.THIS TEST WAS PERFORMED AT:[employer] [id number] [place] [address]JFQOOXLSOUMYA CHRISTOPHER MD,PHD 03/23/2025 8:14 AM EDT 03/23/2025 11:01 AM EDT us Generic External Data Provider LAB BLOOD ORDERAB LES Final Result [facility] [address] [place] [phone] * Cortisol Random (03/23/2025 8:14 AM EDT) Pathologist [facility] Cortisol Random 17.0 ug/dL [facility] Comment:Reference Range*: Be fore 10 [...] ORDERAB LES Final Result Performing Organization Address [facility] de Phone Number [facility] [address] [place] [phone] * Vitamin B12 (Cobalamin) and Folate Panel, Serum (03/23/2025 8:14 AM EDT) Pathologist [facility] Vitamin B12 307 200 - 900 pg/mL [facility] Comment:NORMAL 200-900 PG/ML INDETERMINATE 160-199 PG/ML DEFICIENT < 160 PG/ML Folate 13.0 > or = 4.0 ng/mL [facility] Comment:Reference Values:> o r = 4.0 ng/mL< 4.0 ng/mL suggests folate deficiency Methotrexate, aminopterin and folinic acid(leucovorin) are chemotherapeutic agents whose molecularstructures are similar to folate; therefore, the Architectfolate assay cannot be used for patients using these drugs. 03/23/2025 8:14 AM EDT 03/23/2025 11:05 AM EDT us Kianna Nunez MD LAB BLOOD ORDERABLES Final Re sult Performing Organization Address [facility]/ZIP Co de Phone Number [facility] [address] [place] [phone] * TSH with Reflex to Free T4 (03/23/2025 8:14 AM EDT) TSH reflex Free T4 1.78 0.32 - 4.0 uIU/mL [facility] 03/23/2025 8:14 AM EDT 03/23/2025 11:01 AM EDT us Kianna Nunez MD LAB BLOOD ORDERABLES Final Re sult Performing Organization Address [facility]/ZIP Co de Phone Number [facility] [address] [place] [phone] * HIV-1/2 Antigen and Antibodies, Fourth Generation, with Reflexes (03/23/2025 8:14 AM EDT) Pathologist [facility] HIV AB/AG Nonreactive Nonreactive [facility] Comment:HIV-1 p24 Ag and/or HIV-1/HIV-2 Ab not detected.A test result that is nonreactive does not exclude thepossibility of exposure to or infection with HIV-1 and/orHIV-2. Nonreactive results in this assay for individualswith prior exposure to HIV-1 and/or HIV-2 may be due toantigen and antibody levels that are below the limit ofdetection of this assay.The SNADECniWylio HIV Ag/Ab Combo assay result andsupplemental assay results should be interpreted inconjunction with the patient's clinical presentation,history and other laboratory results. If the results areinconsistent with clinical evidence, additional testing issuggested to confirm the result. Blood Venous blood specimen / Unknown 03/23/2025 8:14 AM EDT 03/23/2025 11:01 AM EDT us Kianna Nunez MD LAB BLOOD ORDERABLES Final Re sult [facility] [address] [place] [phone] * (ABNORMAL) Basic Metabolic Panel (03/23/2025 8:14 AM EDT) Sodium 146(H) 135 - 145 mmol/L [facility] Potassium 4.6 3.3 - 5.1 mmol/L [facility] Chloride 113(H) 96 - 108 mmol/L [facility] Carbon Dioxide 24 22 - 29 mmol/L [facility] Anion Gap 14 12 - 20 [facility] Urea Nitrogen (BUN) 48(H) 9 - 16 mg/dL [facility] Creatinine, Serum 3.33(H) 0.5 - 1.4 mg/dL [facility] Estimated Glomerular Filt Rate 14 [facility] Comment:Chronic Kidney Disea se: Estimated GFR < 60 mL/min/1.53a1Swswrb Kidney Disease: Estimated GFR < 15 mL/min/1.73m2 Glucose 94 60 - 115 mg/dL [facility] Calcium 8.7 8.4 - 10.2 mg/dL [facility] 03/23/2025 8:14 AM EDT 03/23/2025 11:01 AM EDT us Generic External Data Provider LAB BLOOD ORDERAB LES Final Result [facility] [address] [place] [phone] * NM Kidney Flow/Function w/ Pharmacological Intervention (02/26/2025 10:59 AM EDT) Anatomical Region Laterality Modality Body Nuclear Medicine 02/26/2025 10:5 9 AM EDT Narrative 02/26/2025 1:35 PM EDT [address] [address] Nuclear Medicine Report Signed Patient: Georgiana Ealr MR#: [id number] 29 : 1955 Acct:[id number] Age/Sex: 69 / F ADM Date: 02/26/25 Loc: NEELIMA Attending Dr: Paul Rose MD Ordering Physician: Paul Rose MD Date of Service: 02/26/25 Procedure(s): NM renal flow w pharm int Accession Number(s): [id number] cc: Paul Rose MD; Kianna Nunez MD [...] 02/26/25 1332 DD/ 1059 TD/TT: 02/26/25 1230 Feller Machine Operator: Procedure Note Donotuseinterpreter, Image - 02/26/[address] [address] Nuclear Medicine Report Signed Patient: Georgiana EarlMR#: [id number] 29 : 1955cct:[id number] Age/Sex: 69 / FADM Date: 02/26/25 Loc: NEELIMA Attending Dr: Paul Rose MD Ordering Physician: Paul Rose MD Date of Service: 02/26/25 Procedure(s): NM renal flow w pharm int Accession Number(s): [id number] cc: Paul Rose MD; Kianna Nunez MD [...] 02/26/25 1332 DD/ 1059 TD/TT: 02/26/25 1230 Feller Machine Operator: [facility] External Provider IM NM PROCEDURES Final [...] EDT 01/22/2025 5:34 PM EDT Comment:UACC Narrative [facility] - 01/24/2025 7:57 AM EDT Escherichia coli Quant > 100,000 cfu/mL Escherichia coli: Ampicillin >=32(R) Escherichia coli: Cefazolin (Urine) 8(S) Escherichia coli: Cefepime <=0.12(S) Escherichia coli: Ceftriaxone <=0.25(S) Escherichia coli: Ciprofloxacin >=4(R) Escherichia coli: Gentamicin <=1(S) Escherichia coli: Nitrofurantoin <=16(S) Escherichia coli: Trimethoprim/Sulfamethoxazole <=20(S) Specimen Source: Urine clean catch Kianna Nunez MD LAB MICROBIOLOGY - GENERAL OR DERABLES Final Result [facility] [address] [place] [phone] * (ABNORMAL) POCT urinalysis dipstick manually [...] Appearance, UA clear QC Media Lot # Comment:[id number] Lot# Expiration Date Comment:03/03/2025 Urine 01/22/2025 2:33 PM EDT Kianna Nunez MD POINT OF CARE TEST ENTER/EDIT ORDERABLES Final Result * Lipid Panel, Standard (12/31/2024 11:02 AM EDT) Triglycerides 71 <150 mg/dL [facility] Comment:Desirable Triglyceri de: less than 150 mg/dLBorderline High Triglyceride 150-199 mg/dLHigh Triglyceride: 200-499 mg/dLVery High Triglyceride: greater than or equal to 5OO mg/dL Cholesterol 147 <200 mg/dL [facility] Comment:Desirable Cholestero l: less than 200 mg/dLBorderline High Cholesterol: 200-239 mg/dLHigh Cholesterol: greater than 239 mg/dL LDL Cholesterol Calculated 64 <100 mg/dL [facility] Comment:Desirable LDL: less than 100 mg/dLNear Optimal/Above Optimal LDL: 110- 129 mg/dLBorderline High LDL: 130-159 mg/dLHigh LDL: 160-189 mg/dLVery High LDL: greater than or equal to 190 mg/dL HDL Cholesterol 69 >40 mg/dL [facility] Comment:Desirable HDL: great er than 40 mg/dL Note: This HDL assay may give artificially low results in patients with liver disease. Blood Venous blood specimen / Unknown 12/31/2024 11:02 AM EDT 12/31/2024 1:19 PM EDT Kianna Nunez MD LAB BLOOD ORDERABLES Final Re sult Performing Organization Address [facility] Co de Phone Number [facility] [address] [place] [phone] * Hepatitis C Antibody with Reflex to HCV, RNA, Quantitative, Real-Time PCR (05/09/2024 2:01 PM EST) Hepatitis C Antibody Nonreactive Nonreactive [facility] Comment:Antibodies to HCV no t detected; does not exclude early acuteHCV infection. Blood Venous blood specimen / Unknown 05/09/2024 2:01 PM EST 05/09/2024 3:54 PM EST Kianna Nunez MD LAB BLOOD ORDERABLES Final Re sult Performing Organization Address [facility] Co de Phone Number [facility] [address] [place] [phone] * DIGITAL BILATERAL SCREEN 1 (01/10/2019 1:40 PM EDT) Anatomical Region Laterality Modality Breast Bilateral Mammography 01/10/2019 1:40 PM EDT Narrative 01/10/2019 1:43 PM EDT Refer to the Notes tab for result details Legacy Procedure: DIGITAL BILATERAL SCREEN 1 Procedure Note Provider, MD Chacho - 08/26/2022 Refer to the Notes tab for result details Legacy Procedure: DIGITAL BILATERAL SCREEN 1 us Jose Kunal DENTIST/OWNER IMG BI PROCEDURES Final Result from Last 3 Months or Most Recently Relevant to Health Maintenance Insurance [address] [place] [address] [facility] [address] [place] [address] [address] [place] [id number] Care Teams Assembly Worker Relationship Specialty Start Date End Date Kianna Nunez MD [address] [place] [address] PCP - General Family Medicine 02/02/20 Kleber Liu MD Alto Singer 06/04/04 Anaya Parikh OD Optometry 04/09/24 Dorian Edouard Ocean Biologist 06/04/04 [facility] Military Pay Clerk 04/09/24
--- OUTSIDE RECORDS SUMMARY | 2025-04-23 08:53 | XMS_ITS | Encounter Summary ---
Author Organization [employer] Address [address] [facility] [address] [facility] [address] [place] [address] Care Team Providers Care Ice Cream Dipper Name Role Phone Kianna Nunez MD Primary Care Provider [phone] Reason for Visit * Reason Onset Date Comments insurance update 10/05/2022 Appointment 10/05/2022 Encounter Details Date Type Department Care Team (Late st Contact Info) Description 10/05/2022 Telephone [facility] ADULT DENTAL [address] [place] [address] Felisha Burkett DDS insurance update; Appointment Social [...] - 10/05/2022 10:06 AM EDT Bartolo from [facility] called in stating that patient had appt a couple of days ago but was unable to be seen due to apparently having no insurance coverage. She does have coverage through [facility] benefit providers. The id number for the dental portion would be [id number]. Please update insurance info and contact patient for rescheduling DR documented in this encounter Plan of Treatment Upcoming Encounters Date Type Department Care Team (Late st Contact Info) Description 06/29/2025 2:30 PM EST Office Visit [facility] OPTOMETRY [address] [place], [place] [phone] Starsukhi Jenni, OD [address] [place] [address] 06/30/2025 8:45 AM EST Office Visit [facility] ADULT DENTAL [address] [place] [address] She, Caitlin [address] [place] [address] documented as of this encounter Visit Diagnoses Not on filedocumented in this encounter Care Teams Ice Cream Dipper Relationship Specialty Start Date End Date Kianna Nunez MD [address] [place] [address] PCP - General Family Medicine 02/02/20 Kleber Liu MD Watchguard 06/04/04 Anaya Parikh OD Optometry 04/09/24 Dorian Edouard Director Social Welfare 06/04/04 [facility] Supervisor Fitting 04/09/24 documented as of this encounter
[2025-04-23 12:12] LABS: Anion Gap 13 (12-20); Blood Urea Nitrogen 46 mg/dL (9-16); Calcium 9.3 mg/dL (8.4-10.2); Carbon Dioxide 24 mmol/L (22-29); Chloride 111 mmol/L (96-108); Estimated Glomerular Filt Rate 16; Potassium 3.9 mmol/L (3.3-5.1); Sodium 144 mmol/L (135-145)
[2025-05-06 16:33] LABS: Metanephrine, Free Rand Ur 175 mcg/g cr (21-153); Normetanephrine, Free Rand Ur 1060 mcg/g cr (108-524); Total Metanephrine, Free RU 1235 mcg/g cr (149-603)
== END 2025-04-23 08:21 | disposition home or self-care (01) ==
LOC: HO.HHCL 08:20
PROVIDERS: PCP Family Medicine; Visit Provider Student in an Organized Health Care Education/Training Program
DX: E27.9 Disorder of adrenal gland, unspecified (principal)
CPT/HCPCS: 36415; 80048; 83835

== ENCOUNTER 2025-04-24 11:25 | Outpatient (REF) | payer OTHER, SELFPAY | END 2025-04-24 11:26 | disposition home or self-care (01) | LOC: HO.LAB 11:25 | PROVIDERS: Absent Provider Student in an Organized Health Care Education/Training Program; PCP Family Medicine; Referring Provider Urology; Visit Provider Internal Medicine Critical Care Medicine | DX: N18.9 Chronic kidney disease, unspecified (principal); D63.1 Anemia in chronic kidney disease; E27.9 Disorder of adrenal gland, unspecified | CPT/HCPCS: 36415; 82384; 99202; 99212 ==

== ENCOUNTER 2025-04-24 11:25 | Outpatient (AMB) | payer OTHER, SELFPAY ==
--- NOTE | 2025-04-24 11:32 | HO.NEPHOV ---
Vital Signs 04/24/25 11:39 Height 5 ft 4 in Weight 102 lb BMI 17.5 BP 120/70 Blood Pressure Location Lt brachial Position Sitting Pulse 81 Pulse Source Pulse Oximeter Pulse Oximetry (%) 99 Oxygen Delivery Method Room Air Intake Visit Reasons: INP: Acute kidney failure-Conf Healthcare Facility Administrator Required: Yes Healthcare Facility Administrator Language: Certified Family Mediator Services: Healthcare Facility Administrator Present Healthcare Facility Administrator Name: Parveen [id number] Information Interpreted: clinical only Accompanied by: Daughter Allergies Iodinated Contrast Media (CONTRAST,IV) Allergy (Severe, Verified 04/24/25 14:18) ANGIOEDEMA HPI Comments Details: 70-year-old lady with past medical history of CKD, hypertension, hyperlipidemia, CAD, CHF, GERD is here to establish care for CKD. Here with interpretor Agustin, complains of left lower back pain. Has CKD for past 4-5 years seeing a iuss acoustic analyst but doesnt know the name,wants to change her doctor Hypertension: On hydralazine 25 t.i.d, isosorbide mononitrate 30 daily, carvedilol 37.5 b.i.d, torsemide 20 q.a.m. CAD/CHF: TTE done in 04/2025 showed EF 29% with global hypokinesis, sees Dr. Styles in [facility]iac clinic [facility] Medical History Acute pyelonephritis E coli bacteremia Rectal candidiasis Urinary tract infection UTI (urinary tract infection) Cocaine use disorder Cocaine use disorder in remission MDD (major depressive disorder), recurrent severe, without psychosis Hx of sepsis History of asthma Hyperlipidemia HTN (hypertension) Cardiomyopathy ICD (implantable cardioverter-defibrillator) in place CAD (coronary artery disease) Chronic heart failure with reduced ejection fraction and diastolic dysfunction GERD (gastroesophageal reflux disease) Surgical History History of surgery Hx of cystoscopy H/O hemorrhoidectomy Stented coronary artery Hx of colonoscopy Family History Father Diabetes HTN (hypertension) Mother Diabetes HTN (hypertension) Sister Throat cancer Family/Other Colon cancer Social History Household Members: None Housing: Apartment Are you a primary healthcare customer service to a significant other at home: No Do you presently have visiting nurse or other home services: No Alcohol intake: never Comment: sleeping Patient Tobacco Use Status: Current everyday Tobacco user Tobacco use type: Cigarette Cigarette Packs Per Day: 2 Cigarettes Per Day: 40.0 Years Smoked: 38 e-Cigarette/Vaping Use: Never Used Second Hand Smoke Exposure: Yes Substance Use Type: Marijuana Advance Directives Date on File: 04/26/21 service: No Current occupational status: unemployed and disabled Sexual orientation: Straight/Heterosexual Review of Systems Const Details: Const : no body aches, no chills, no excessive sweating and no fatigue Eyes: no blurry vision and no change in vision ENT: no bleeding gums and no change in voice, no dizziness Card: no chest pain, no shortness of breath, no orthopnea, no PND Resp: no cough, no excessive phlegm production, no SOB GI: no abdominal pain and no nausea, no vomiting : no hematuria, no urinary frequency and no difficulty voiding Musc: no abnormal gait, no bone pain Neuro: no abnormal movements, no weakness, and no behavioral changes Psych: no behavioral changes and no change in appetite Endo: no change in body appearance, no cold intolerance, no excessive sweating and no fatigue Physical Exam Vital Signs: Last Vital Signs Pulse 81 04/24/25 11:39 BP 120/70 04/24/25 11:39 Pulse Ox 99 04/24/25 11:39 Oxygen Delivery Method Room Air 04/24/25 11:39 BMI result Body Mass Index 17.5 General: not in any acute distress, comfortable, sitting on the chair Nutritional Appearance: well nourished and weight Eyes: normal position, no icterus Neck: No lymphadenopathy, no thyromegaly Resp: bilateral air entry equal, no added sounds present Cardio: normal S1, S2 heard, no murmur heard, no edema GI: soft, nontender, no guarding, no hepatosplenomegaly : bladder normal to inspection, bladder normal to palpation, no renal angle tenderness Skin: no rashes or lesions noted and elasticity normal Neuro: oriented to person, oriented to place, oriented to time and moves all extremities Results Reviewed Nephrology Results: Sodium, (135-145) 144 mmol/L 04/23/25 Potassium, (3.3-5.1) 3.9 mmol/L 04/23/25 Chloride, (96-108) 111 mmol/L H 04/23/25 Carbon Dioxide, (22-29) 24 mmol/L 04/23/25 BUN, (9-16) 46 mg/dL H 04/23/25 Creatinine, (0.5-1.4) 2.96 mg/dL H 04/23/25 Calcium, (8.4-10.2) 9.3 mg/dL Δ 04/23/25 Assessment & Plan Assessment & Plan (1) Chronic kidney disease: Code(s): N18.9 - Chronic kidney disease, unspecified Category: Medical (2) Anemia in CKD (chronic kidney disease): Code(s): N18.9 - Chronic kidney disease, unspecified; D63.1 - Anemia in chronic kidney disease Category: Medical Plan Chronic kidney disease stage : Possibly secondary to atherosclerotic renovascular disease. Had renal perfusion scan which showed single functioning Right kidney - no family history of CKD, no history of renal stones in the past, NSAID use. - has advanced CKD stage IV since 2021, - creatinine 2.96 , GFR 16 - urine microalbumin creatinine ratio, UPCR - Urinalysis shows - Renal ultrasound - avoid nephrotoxic medications not limited to NSAIDs, contrast etc. - importance of LPD protein about 0.6mg/kg/day, benefits of plant based diet, adequate blood pressure control, stop smoking well explained to patient - will get hepatitis panel, HIV, ALIYA, ANCA, complements, SPEP, UPEP, serum free light chains, PLA2R Hypertension: - target blood pressures less than 130/90 mm Hg - compliance: - continue hydralazine 25 t.i.d, isosorbide mononitrate 30 daily, carvedilol 37.5 b.i.d, torsemide 20 q.a.m. Anemia of chronic kidney disease: - HB 11.2 in 12/26 - will get iron, TIBC, ferritin levels Mineral bone disease: - will get calcium, phos, vitamin-D and PTH levels with next set of labs This note is constructed using voice recognition software. While every effort has been made to ensure accuracy power generation plant operator errors may have been included. Total time spent in the clinic is about 40 minutes, 10 minutes on chart review, review of data, 20 minutes on encounter, physical examination, counseling, answering all the questions, 10 minutes on documentation. Orders: Orders UA and rflx microscopic 4 Months D63.1 - Anemia in chronic kidney disease, N18.9 - Chronic kidney disease, unspecified Microalbumin, Random (w Creat) 4 Months D63.1 - Anemia in chronic kidney disease, N18.9 - Chronic kidney disease, unspecified Protein Creatinine Ratio, Ur 4 Months D63.1 - Anemia in chronic kidney disease, N18.9 - Chronic kidney disease, unspecified Parathyroid Hormone Intact 4 Months D63.1 - Anemia in chronic kidney disease, N18.9 - Chronic kidney disease, unspecified Complete Blood Count no Diff 4 Months D63.1 - Anemia in chronic kidney disease, N18.9 - Chronic kidney disease, unspecified Basic Metabolic Panel 4 Months D63.1 - Anemia in chronic kidney disease, N18.9 - Chronic kidney disease, unspecified Vitamin D 25-OH Total 4 Months D63.1 - Anemia in chronic kidney disease, N18.9 - Chronic kidney disease, unspecified Coding Level of Care Code New Pt Level 4 (14427) Diagnoses Chronic kidney disease N18.9 Anemia in CKD (chronic kidney disease) N18.9; D63.1
[2025-04-24 11:39] VITALS: BP 120/70; PULSE 81; O2SAT 99; BMI 17.5
--- OUTSIDE RECORDS SUMMARY | 2025-04-24 12:16 | XMS_ITS | Encounter Summary ---
Author Organization [employer] Address [address] [place] [address] Care Team Providers Care Director Talent Acquisition Name Role Phone Kianna Nunez MD Primary Care Provider [phone] Reason for Visit * Reason Onset Date Comments call back needed 02/20/2025 Encounter Details Date Type Department Care Team ([facility] st Contact Info) Description 02/20/2025 Telephone [facility] MEDICINE [address] [place] [address] Kianna Nunez MD [address] [place], [place] [phone] call back needed Social History Tobacco Use [...] - 02/20/2025 4:50 PM EDT TC from [place] with [facility] requesting a call back due to questions [...] Description 06/29/2025 2:30 PM EST Office Visit [facility] OPTOMETRY [address] [place] [address] TarkaJenni, OD [address] [place] [address] 06/30/2025 8:45 AM EST Office Visit [facility] ADULT DENTAL [address] [place] [address] Caitlin Nowak [address] [place] [address] documented as of this encounter Visit Diagnoses Not on filedocumented in this encounter Additional Health Concerns Assessment Noted Time PHQ-9 Depression Total Score: 7 12/20/19 25 9:35 AM EDT documented as of this encounter Care Teams Director Talent Acquisition Relationship Specialty Start Date End Date Kianna Nunez MD [address] [place] [address] PCP - General Family Medicine 02/02/20 Kleber Liu MD Blender Machine Operator 06/04/04 Anaya Parikh OD Optometry 04/09/24 Dorian Edouard Temperature Inspector 06/04/04 [facility] Barkeep 04/09/24 documented as of this encounter
--- OUTSIDE RECORDS SUMMARY | 2025-04-24 12:16 | XMS_ITS | Clinical Summary ---
Author Organization [facility] Address [address] [place] [address] Phone Care Team Providers Care Silverware Washer Name Role Phone Kianna Nunez MD Primary Care Provider [phone] Encounters Date Type Department Care Team Description 01/27/2025 10:45 AM EDT - 01/27/2025 11:59 PM EDT Hospital Encounter [facility] PET Scan [address] [place] [address] Other nonspecific abnormal finding of [...] Signed Date: 01/28/2025 12:32 ET Workstation ID: [id number] Transcribed By: Self Edit Transcribed Date: 01/28/2025 [...] Signed Date: 01/28/2025 12:32 ET Workstation ID: [id number] Transcribed By: Self Edit Transcribed Date: 01/28/2025 12:23 ET Paul Andre MD IM NM PROCEDURES Final Result from Last [address] [id number] [facility] Care Teams Silverware Washer Relationship Specialty Start Date End Date Kianna Nunez MD [address] [place] [address] PCP - General 08/27/23
--- OUTSIDE RECORDS SUMMARY | 2025-04-24 12:16 | XMS_ITS | Encounter Summary ---
Author Organization [employer] Address [address] [place] [address] Care Team Providers Care Blockers Skiver Name Role Phone Kianna Nunez MD Primary Care Provider [phone] Reason for Visit * Reason Onset Date Comments Pre-op Exam 11/15/2023 Encounter Details Date Type Department Care Team ([facility] st Contact Info) Description 11/15/2023 Telephone [facility] CHC MED & PEDS [address] [place] [address] Kianna Nunez MD [address] [place] [address] Pre-op Exam Social History Tobacco Use Types [...] no Surgeon's name: Dr. Agustin Facility name: [facility] Surgeon's office number: [phone] Surgeon's office fax number: [phone] Contact name (person you spoke with): Kelli Last office note from surgeon requested: Pre-Op notes documented in this encounter Plan of Treatment Upcoming Encounters Date Type Department Care Team (Late st Contact Info) Description 06/29/2025 2:30 PM EST Office Visit [facility] OPTOMETRY [address] [place] [address] StarkaJenni, OD [address] [place] [address] 06/30/2025 8:45 AM EST Office Visit [facility] ADULT DENTAL [address] [place] [address] She, Caitlin [address] [place] [address] documented as of this encounter Visit Diagnoses Not on filedocumented in this encounter Additional Health Concerns Assessment Noted Time PHQ-9 Depression Total Score: 0 05/01/20 23 2:20 PM EST documented as of this encounter Care Teams Blockers Skiver Relationship Specialty Start Date End Date Kianna Nunez MD [address] [place] [address] PCP - General Family Medicine 02/02/20 Kleber Liu MD Oxyacetylene Cutter 06/04/04 Anaya Parikh OD Optometry 04/09/24 Dorian Edouard Family Program Specialist 06/04/04 [facility] Neonatal Surgeon 04/09/24 documented as of this encounter
--- OUTSIDE RECORDS SUMMARY | 2025-04-24 12:16 | XMS_ITS | Encounter Summary ---
Author Organization [employer] [facility] Address [address] [place] [address] Care Team Providers Care Dance Therapist Name Role Phone Kianna Nunez MD Primary Care Provider Encounter Details Date Type Department Care Team (Late st Contact Info) Description 04/07/2025 Telephone [facility] [address] [place] [address] Neetu Goodwin, RN [address] [place] [address] Social History Tobacco Use Types Packs/Day Years [...] Description 06/29/2025 2:30 PM EST Office Visit [facility] [address] [place] [address] Jenni Morales, OD [address] [place] [address] 06/30/2025 8:45 AM EST Office Visit [facility] [address] [place] [address] She, Caitlin [address] [place] [address] documented as of this encounter Visit Diagnoses Not on filedocumented in this encounter Additional Health Concerns Assessment Noted Time PHQ-9 Depression Total Score: 7 12/20/19 25 9:35 AM EDT documented as of this encounter Care Teams Dance Therapist Relationship Specialty Start Date End Date Kianna Nunez MD [address] [place] [address] PCP - General Family Medicine 02/02/20 Kleber Liu MD Shop Foreman 06/04/04 Anaya Parikh OD Optometry 04/09/24 Dorian Edouard Blemish Remover 06/04/04 [facility] Cigar Sorter 04/09/24 documented as of this encounter
--- OUTSIDE RECORDS SUMMARY | 2025-04-24 12:16 | XMS_ITS | Encounter Summary ---
Author Organization [employer] Address [address] [facility] [address] [place] [address] Care Team Providers Care Home Security Professional Name Role Phone Kianna Nunez MD Primary Care Provider [phone] Encounter Details Date Type Department Care Team (Late Contact Info) Description 08/31/2022 Orders Only [facility] CHC MED & PEDS [address] [place], [place] [phone] Timothy Ibrahim MD [address] [place] [address] Social History Tobacco Use Types Packs/Day Years [...] Description 06/29/2025 2:30 PM EST Office Visit [facility] OPTOMETRY [address] [place], [place] [phone] TarkaJenni, OD [address] [place] [address] 06/30/2025 8:45 AM EST Office Visit [facility] ADULT DENTAL [address] [place] [address] Caitlin Nowak [address] [place] [address] documented as of this encounter Procedures Procedure Name Priority Date/Time Associated Diagnosis Comments CULTURE, URINE, ROUTINE Routine 01/05/2023 10:30 AM EDT documented in this encounter Results * Culture, Urine, Routine (01/05/2023 10:30 AM EDT) Urine specimen obtained by clean catch procedure / Unknown 01/05/2023 10:30 AM EDT 01/05/2023 2:58 PM EDT Comment:[facility] - 01/07/2023 7:34 AM EDT [...] City/State/[facility] Co de Phone Number [facility] [address] [place] [phone] documented in this encounter Visit Diagnoses Not on filedocumented in this encounter Care Teams Home Security Professional Relationship Specialty Start Date End Date Kianna Nunez MD [address] [place] [address] PCP - General Family Medicine 02/02/20 Kleber Liu MD Apartment Community Assistant Manager 06/04/04 Anaya Parikh OD Optometry 04/09/24 Dorian Edouard Benefits Clerk 06/04/04 [facility] Under Cutting Machine Operator 04/09/24 documented as of this encounter
--- OUTSIDE RECORDS SUMMARY | 2025-04-24 12:16 | XMS_ITS | Clinical Summary ---
Author Organization [employer] Address [address] [facility] [place] [address] Care Team Providers Care Freight Sales Broker Name Role Phone Kianna Nunez MD Primary Care Provider [phone] Allergies Active Allergy Reactions Criticality Noted Date [...] FOR 2 DAYS 02/06/20 25 Active PEG 2404-QWa-SsRax-Na Cl-NaSulf (PEG-3350/Electro lytes) 236 g reconstituted solution [...] referred for therapy and information given to granddaughter/PAINTER SIGN MAINTENANCE. Assessment & Plan (04/09/2024 11:16 AM EST): [...] and I will also send her to room service runner. Labs: CBC, Comprehensive Metabolic Panel, Lipid panel, [...] is to refer patientfor OP individual therapy. [facility] crisis line number provided. At this [...] for her to decrease symptoms c. Contact [facility] crisis line if needed (information and [...] is to refer patientfor OP individual therapy. [facility] crisis line number provided. At this [...] for her to decrease symptoms c. Contact [facility] crisis line if needed (information and [...] BP medication when she gets back to [place] today. -Seek medical attention if she has concerns. -Medication reconciliation with pharmacy was done today. Asthma 11/06/2011 Nephrolithiasis 11/06/2011 Tobacco user 09/13/2011 Resolved Problems Problem Noted Date Diagnosed Date Resolved Date Physical exam 08/22/2023 04/09/2024 Encounter for health-related screening 05/01/2023 04/09/2024 Assessment & Plan (05/01/2023 2:24 PM EST): -Labs: HIV-1/2, Hep. C-Ab. Encounters Date Type Department Care Team Description 04/23/2025 Orders Only GENERIC EXTERNAL DATA DEPARTMENT Provider, Generic External Data 04/09/2025 Telephone [facility] MEDICINE [address] [place] [address] Gisele Salamanca, NETTA Care Coordination 04/07/2025 3:00 PM EST Clinical Support [facility] [address] [place] [address] Concepcion Noyola, NETTA Primary hypertension [I10] 04/07/2025 Telephone [facility] WALK-IN CENTER [address] [place] [address] Neetu Goodwin RN 04/07/2025 Travel 04/06/2025 Refill [facility] [address] [place] [address] Kianna Nunez MD Painful spasm of anus 04/03/[address] Telephone Call 03/30/2025 10:00 AM EDT Office Visit [facility] [address] [place] [address] Kianna Nunez MD Primary hypertension (Primary Dx); Pain; Encounter for immunization; Encounter for vaccination 03/30/2025 Travel 03/27/2025 Telephone [facility] [address] [place] [address] Kianna Nunez MD Chart Prep 03/23/2025 Orders Only GENERIC EXTERNAL DATA DEPARTMENT Provider, Generic External Data 03/11/[address] [address] Kianna Nunez MD 03/08/2025 Refill [facility] [address] [place] [address] Lara Alanis MD Anxiety; Chronic heart failure, unspecified heart failure type (HCC) 02/27/2025 Telephone [facility] [address] [place] [address] Nutrition referral 02/20/2025 Telephone [facility] [address] [place] [address] Kianna Nunez MD call back needed 02/10/2025 Telephone [facility] [address] [place] [address] Kianna Nunez MD US BREAST ORDER 02/05/2025 Refill [facility] [address] [place] [address] Kianna Nunez MD 02/03/2025 Refill [facility] [address] [place] [address] Lara Alanis MD Failure to thrive in adult 01/28/2025 Orders Only [facility] [address] [place] [address] Chacho Romero MD 01/27/2025 Telephone [facility] Information [facility] [address] [place] [address] Kianna Nunez MD 01/23/2025 Telephone [facility] [address] [place] [address] Kianna Nunez MD Referral 01/22/2025 2:30 PM EDT Office Visit [facility] [address] [place], [place] [phone] Kianna Nunez MD Mass of lower outer [...] Description 06/29/2025 2:30 PM EST Office Visit [facility] OPTOMETRY [address] [place] [address] Jenni Morales, OD [address] [place] [address] 06/30/2025 8:45 AM EST Office Visit [facility] ADULT DENTAL [address] [place] [address] Suman Nowakaris [address] [place] [address] Health Maintenance Due Date Last Done Comments [...] Procedure Name Priority Date/Time Associated Diagnosis Comments BASIC METABOLIC PANEL Routine 04/23/2025 8:[address] CHEST WO CONTRAST Routine 04/17/2025 8:03 [...] Relevant to Health Maintenance Results * (ABNORMAL) Basic Metabolic Panel (04/23/2025 8:24 AM EST) Only the most recent of2 resultswithin the time period is included. Sodium 144 135 - 145 mmol/L [facility] Potassium 3.9 3.3 - 5.1 mmol/L [facility] Chloride 111(H) 96 - 108 mmol/L [facility] Carbon Dioxide 24 22 - 29 mmol/L [facility] Anion Gap 13 12 - 20 [facility] Urea Nitrogen (BUN) 46(H) 9 - 16 mg/dL [facility] Creatinine, Serum 2.96(H) 0.5 - 1.4 mg/dL [facility] Estimated Glomerular Filt Rate 16 [facility] Comment:Chronic Kidney Disea se: Estimated GFR < 60 mL/min/1.08m9Jibocj Kidney Disease: Estimated GFR < 15 mL/min/1.73m2 Glucose 116(H) 60 - 115 mg/dL [facility] Calcium 9.3 8.4 - 10.2 mg/dL [facility] 04/23/2025 8:24 AM EST 04/23/2025 11:10 AM EST us Generic External Data Provider LAB BLOOD ORDERAB LES Final Result Performing Organization Address City/State/[place]UST Co de Phone Number [facility] [address] [place] [phone] * CT Chest w/o Contrast (04/17/2025 8:03 AM EST) Anatomical Region Laterality Modality Body, Chest Computed Tomogra phy 04/17/2025 8:03 AM EST Narrative 04/17/2025 8:49 AM EST [address] [address] [address] Scan Report Signed Patient: Georgiana Earl MR#: [id number] 29 : 1955 Acct:[id number] Age/Sex: 70 / F ADM Date: 04/17/25 Loc: HO.CT Attending Dr: Paul Andre MD Ordering Physician: Paul Andre MD Date of Service: 04/17/25 Procedure(s): CT chest wo IV con Accession Number(s): [id number] cc: Paul Andre MD; Kianna Nunez MD Report Number: [id number]: Total DLP = 82.00 mGy-cm Reason for [...] iterative reconstruction technique DLP: 82 mGy-cm FINDINGS: SNUFF DRIER: Cardiomediastinal silhouette appears prominent to the left [...] 04/17/25 0846 DD/ 0803 TD/TT: 04/17/25 0831 Fire Services Plumber: Procedure Note Donotpapainterpreter, Image - 04/17/[address] [place] [address] [address] Scan Report Signed Patient: Georgiana EarlMR#: [id number] 29 : 4Acct:[id number] Age/Sex: 70 / FADM Date: 04/17/25 Loc: HO.CT Attending Dr: Paul Andre MD Ordering Physician: Paul Andre MD Date of Service: 04/17/25 Procedure(s): CT chest wo IV con Accession Number(s): [id number] cc: Paul Andre MD; Kianna Nunez MD Report Number: [id number]: Total DLP = 82.00 mGy-cm Reason for [...] iterative reconstruction technique DLP: 82 mGy-cm FINDINGS: SNUFF DRIER: Cardiomediastinal silhouette appears prominent to the left [...] Chase Santiago MD 04/17/2025 08:46 AM EST RP Dictated By: Chase Jernigan MD Signed By: <Electronically signed by Chase Bobby MDin OV> 04/17/25 0846 DD/ 08 TD/TT: 04/17/25 0831 Fire Services Plumber: [facility] External Provider IMG CT PROCEDURES Final Result * Dexamethasone (03/23/2025 8:14 AM EDT) Pathologist [facility] Dexamethasone <20 ng/dL [facility] Comment:Reference Ranges for Dexamethasone:Baseline: Less than 20 ng/dL1 mg dexamethasone overnight: 180-550 ng/dL (8:00-10:00 AM)This test was developed and its analytical performancecharacteristics have been determined by [employer].It has not been cleared or approved by the FDA. This assayhas been validated pursuant to the CLIA regulations and isused for clinical purposes.THIS TEST WAS PERFORMED AT:[id number] [facility] [place] [address]UIPBQLOGAN BOLANOS MD,PHD,WENDY 03/23/2025 8:14 AM EDT 03/23/2025 11:27 AM EDT us Generic External Data Provider LAB BLOOD ORDERAB LES Final Result [facility] [address] [place] [phone] * (ABNORMAL) Metanephrines, Fractionated, Free, LC/MS/MS, Plasma (03/23/2025 8:14 AM EDT) [facility] Metanephrine, Free 59(A) <=57 pg/mL [facility] Comment:This test was develo ped and its analytical performancecharacteristics have been determined by [place]. It hasnot been cleared or approved by the U.S. Food and DrugAdministration. This assay has been validated pursuantto the CLIA regulations and is used for clinicalpurposes. Normetanephrine, Free 383(A) <=148 pg/mL [facility] Comment:This test was develo ped and its analytical performancecharacteristics have been determined by [employer] [place], [place]. It hasnot been cleared or approved by the U.S. Food and DrugAdministration. This assay has been validated pursuantto the CLIA regulations and is used for clinicalpurposes. Total, Free (MN+NMN) 442(A) <=205 pg/mL [facility] Comment: For additional information, please refer tohttp://[email or web address].Ecosia/faq/MetFractFree(This link is being provided for informational/educatioinformational/educational purposes [...] its analytical performancecharacteristics have been determined by [employer] [place], [place]. It hasnot been cleared or approved by the U.S. Food and DrugAdministration. This assay has been validated pursuantto the CLIA regulations and is used for clinicalpurposes.THIS TEST WAS PERFORMED AT:[employer]/[facility] [place] [address]XDXSRILSOUMYA CHRISTOPHER MD,PHD 03/23/2025 8:14 AM EDT 03/23/2025 11:01 AM EDT us Generic External Data Provider LAB BLOOD ORDERAB LES Final Result [facility] [address] [place] [phone] * Cortisol Random (03/23/2025 8:14 AM EDT) Cortisol Random 17.0 ug/dL [facility] Comment:Reference Range*: Be fore 10 [...] ORDERAB LES Final Result Performing Organization Address [facility]/ZIP Co de Phone Number [facility] [address] [place] [phone] * Vitamin B12 (Cobalamin) and Folate Panel, Serum (03/23/2025 8:14 AM EDT) Vitamin B12 307 200 - 900 pg/mL [facility] Comment:NORMAL 200-900 PG/ML INDETERMINATE 160-199 PG/ML DEFICIENT < 160 PG/ML Folate 13.0 > or = 4.0 ng/mL [facility] Comment:Reference Values:> o r = 4.0 ng/mL< 4.0 ng/mL suggests folate deficiency Methotrexate, aminopterin and folinic acid(leucovorin) are chemotherapeutic agents whose molecularstructures are similar to folate; therefore, the Architectfolate assay cannot be used for patients using these drugs. 03/23/2025 8:14 AM EDT 03/23/2025 11:05 AM EDT us Kianna Nunez MD LAB BLOOD ORDERABLES Final Re sult Performing Organization Address [facility]/[place] Co de Phone Number [facility] [address] [place] [phone] * TSH with Reflex to Free T4 (03/23/2025 8:14 AM EDT) TSH reflex Free T4 1.78 0.32 - 4.0 uIU/mL [facility] 03/23/2025 8:14 AM EDT 03/23/2025 11:01 AM EDT us Kianna Nunez MD LAB BLOOD ORDERABLES Final Re sult Performing Organization Address [facility]/[place] Co de Phone Number [facility] [address] [place] [phone] * HIV-1/2 Antigen and Antibodies, Fourth Generation, with Reflexes (03/23/2025 8:14 AM EDT) HIV AB/AG Nonreactive Nonreactive [facility] Comment:HIV-1 p24 Ag and/or HIV-1/HIV-2 Ab not detected.A test result that is nonreactive does not exclude thepossibility of exposure to or infection with HIV-1 and/orHIV-2. Nonreactive results in this assay for individualswith prior exposure to HIV-1 and/or HIV-2 may be due toantigen and antibody levels that are below the limit ofdetection of this assay.The Companion Canine HIV Ag/Ab Combo assay result andsupplemental assay results should be interpreted inconjunction with the patient's clinical presentation,history and other laboratory results. If the results areinconsistent with clinical evidence, additional testing issuggested to confirm the result. Blood Venous blood specimen / Unknown 03/23/2025 8:14 AM EDT 03/23/2025 11:01 AM EDT us Kianna Nunez MD LAB BLOOD ORDERABLES Final Re sult Performing Organization Address City/[facility]/[place] Co de Phone Number [facility] [address] [place] [phone] * NM Kidney Flow/Function w/ Pharmacological Intervention (02/26/2025 10:59 AM EDT) Anatomical Region Laterality Modality Body Nuclear Medicine 02/26/2025 10:5 9 AM EDT Narrative 02/26/2025 1:35 PM EDT [address] [address] Nuclear Medicine Report Signed Patient: Georgiana Earl MR#: [id number] 29 : 1955 Acct:[id number] Age/Sex: 69 / F ADM Date: 02/26/25 Loc: TERAJulianMILLIERICHARDSON Attending Dr: Paul Rose MD Ordering Physician: Paul Rose MD Date of Service: 02/26/25 Procedure(s): NM renal flow w pharm int Accession Number(s): [id number] cc: Paul Rose MD; Kianna Nunez MD [...] 02/26/25 1332 DD/ 1059 TD/TT: 02/26/25 1230 Fire Services Plumber: Procedure Note Donotuseinterpreter, Image - 02/26/[address] [address] Nuclear Medicine Report Signed Patient: Georgiana EarlMR#: [id number] 29 : 1955cct:[id number] Age/Sex: 69 / FADM Date: 02/26/25 Loc: NEELIMA Attending Dr: Paul Rose MD Ordering Physician: Paul Rose MD Date of Service: 02/26/25 Procedure(s): NM renal flow w pharm int Accession Number(s): [id number] cc: Paul Rose MD; Kianna Nunez MD [...] 02/26/25 1332 DD/ 1059 TD/TT: 02/26/25 1230 Fire Services Plumber: [facility] External Provider IM NM PROCEDURES Final Result * PET/CT Bone Skull Base to Mid Thigh (01/27/2025 3:26 PM EDT) Anatomical Region Laterality Modality Body Computed Tomogra phy us Historical Provider IMLuc CT PROCEDURES Final R esult * Culture, Urine, Routine (01/22/2025 2:39 PM EDT) Urine Urine specimen obtained by clean catch procedure / Unknown 01/22/2025 2:39 PM EDT 01/22/2025 5:34 PM EDT Comment:UACC Narrative [facility] - 01/24/2025 7:57 AM EDT Escherichia coli Quant > 100,000 cfu/mL Escherichia coli: Ampicillin >=32(R) Escherichia coli: Cefazolin (Urine) 8(S) Escherichia coli: Cefepime <=0.12(S) Escherichia coli: Ceftriaxone <=0.25(S) Escherichia coli: Ciprofloxacin >=4(R) Escherichia coli: Gentamicin <=1(S) Escherichia coli: Nitrofurantoin <=16(S) Escherichia coli: Trimethoprim/Sulfamethoxazole <=20(S) Specimen Source: Urine clean catch Kianna Nunez MD LAB MICROBIOLOGY - GENERAL OR DERABLES Final Result [facility] [address] [place] [phone] * (ABNORMAL) POCT urinalysis dipstick manually [...] Appearance, UA clear QC Media Lot # Comment:[id number] Lot# Expiration Date Comment:03/03/2025 Urine 01/22/2025 2:33 PM EDT us Kianna Nunez MD POINT OF CARE TEST ENTER/EDIT ORDERABLES Final Result * Lipid Panel, Standard (12/31/2024 11:02 AM EDT) Triglycerides 71 <150 mg/dL [facility] Comment:Desirable Triglyceri de: less than 150 mg/dLBorderline High Triglyceride 150-199 mg/dLHigh Triglyceride: 200-499 mg/dLVery High Triglyceride: greater than or equal to 5OO mg/dL Cholesterol 147 <200 mg/dL [facility] Comment:Desirable Cholestero l: less than 200 mg/dLBorderline High Cholesterol: 200-239 mg/dLHigh Cholesterol: greater than 239 mg/dL LDL Cholesterol Calculated 64 <100 mg/dL [facility] Comment:Desirable LDL: less than 100 mg/dLNear Optimal/Above Optimal LDL: 110- 129 mg/dLBorderline High LDL: 130-159 mg/dLHigh LDL: 160-189 mg/dLVery High LDL: greater than or equal to 190 mg/dL HDL Cholesterol 69 >40 mg/dL [facility] Comment:Desirable HDL: great er than 40 mg/dL Note: This HDL assay may give artificially low results in patients with liver disease. Blood Venous blood specimen / Unknown 12/31/2024 11:02 AM EDT 12/31/2024 1:19 PM EDT us Kianna Nunez MD LAB BLOOD ORDERABLES Final Re sult [facility] [address] [place] [phone] * Hepatitis C Antibody with Reflex to HCV, RNA, Quantitative, Real-Time PCR (05/09/2024 2:01 PM EST) Hepatitis C Antibody Nonreactive Nonreactive [facility] Comment:Antibodies to HCV no t detected; does not exclude early acuteHCV infection. Blood Venous blood specimen / Unknown 05/09/2024 2:01 PM EST 05/09/2024 3:54 PM EST us Kianna Nunez MD LAB BLOOD ORDERABLES Final Re sult [facility] [address] [place] [phone] * DIGITAL BILATERAL SCREEN 1 (01/10/2019 [...] DIGITAL BILATERAL SCREEN 1 us Jose Syed ARMED GUARD IMG BI PROCEDURES Final Result from Last 3 Months or Most Recently Relevant to Health Maintenance Insurance [address] [place] [address] [facility] [address] [place] [phone] Care Teams Freight Sales Broker Relationship Specialty Start Date End Date Kianna Nunez MD [address] [place] [address] PCP - General Family Medicine 02/02/20 Kleber Liu MD Tight Cooper 06/04/04 Anaya Parikh OD Optometry 04/09/24 Dorian Edouard Edge Stainer Machine 06/04/04 [facility] Yard Cleaner 04/09/24
--- OUTSIDE RECORDS SUMMARY | 2025-04-24 12:16 | XMS_ITS | Encounter Summary ---
Author Organization [employer] [facility] Address [address] [facility] 7t [place] [address] Care Team Providers Care Pharmacist Intern Name Role Phone Kianna Nunez MD Primary Care Provider [phone] Reason for Visit * Reason Comments Med Refill Encounter Details Date Type Department Care Team (Late st Contact Info) Description 02/20/2023 Refill [facility] [address] [place], [place] [phone] Kianna Nunez MD [address] [place], [place] [phone] Primary hypertension Social History Tobacco Use Types [...] PM EST Office Visit [facility] [address] [place], [place] [phone] Jenni Morales, OD [address] [place], [place] [phone] 06/30/2025 8:45 AM EST Office Visit [facility] [address] [place], [place] [phone] Caitlin Nowak [address] [place], [place] [phone] documented as of this encounter Visit Diagnoses Diagnosis Primary hypertension Unspecified essential hypertension documented in this encounter Care Teams Pharmacist Intern Relationship Specialty Start Date End Date Kianna Nunez MD [address] [place] [address] PCP - General Family Medicine 02/02/20 Kleber Liu MD Associate Counsel 06/04/04 Anaya Parikh OD Optometry 04/09/24 Dorian Edouard Shipping Receiving Manager 06/04/04 [facility] Chemotherapist 04/09/24 documented as of this encounter
--- OUTSIDE RECORDS SUMMARY | 2025-04-24 12:16 | XMS_ITS | Encounter Summary ---
Author Organization [employer] [facility] Address [address] [facility] 7t [place] [address] Care Team Providers Care Horseradish Maker Name Role Phone Kianna Nunez MD Primary Care Provider [phone] Encounter Details Date Type Department Care Team (Late st Contact Info) Description 01/28/2025 Orders Only [facility] [address] [place], [place] [phone] ProviderChacho MD Social History Tobacco Use Types [...] Visit [facility] OPTOMETRY [address] [place] [address] Jenni Morales, OD [address] [place] [address] 06/30/2025 8:45 AM EST Office Visit [facility] ADULT DENTAL [address] [place] [address] She, Caitlin [address] [place] [address] documented as of this encounter Procedures Procedure [...] EDT Narrative 02/26/2025 1:35 PM EDT [address] [address] Nuclear Medicine Report Signed Patient: Georgiana Earl MR#: [id number] 29 : 1955 Acct:[id number] Age/Sex: 69 / F ADM Date: 02/26/25 Loc: TERAJulianMILLIERICHARDSON Attending Dr: Paul Rose MD Ordering Physician: Paul Rose MD Date of Service: 02/26/25 Procedure(s): NM renal flow w pharm int Accession Number(s): [id number] cc: Paul Rose MD; Kianna Nunez MD [...] 02/26/25 1332 DD/ 1059 TD/TT: 02/26/25 1230 Police Liaison Officer: Procedure Note Donotuseinterpreter, Image - 02/26/[address] [address] Nuclear Medicine Report Signed Patient: Georgiana EarlMR#: [id number] 29 : 4Acct:[id number] Age/Sex: 69 / FADM Date: 02/26/25 Loc: NEELIMA Attending Dr: Pual Rose MD Ordering Physician: Paul Rose MD Date of Service: 02/26/25 Procedure(s): NM renal flow w pharm int Accession Number(s): [id number] cc: Paul Rose MD; Kianna Nunez MD [...] 02/26/25 1332 DD/ 1059 TD/TT: 02/26/25 1230 Police Liaison Officer: [facility] External Provider IM NM PROCEDURES Final [...] documented as of this encounter Care Teams Horseradish Maker Relationship Specialty Start Date End Date Kianna Nunez MD [address] [place] [phone] PCP - General Family Medicine 02/02/20 Kleber Liu MD Edge Stitcher 06/04/04 Anaya Parikh OD Optometry 04/09/24 Dorian Edouard Mold Injector 06/04/04 [facility] Larder Cook 04/09/24 documented as of this encounter
--- OUTSIDE RECORDS SUMMARY | 2025-04-24 12:16 | XMS_ITS | Encounter Summary ---
Author Organization [employer] Address [address] [place] [address] Care Team Providers Care Journeyman Powerhouse Operator Name Role Phone Kianna Nunez MD Primary Care Provider [phone] Reason for Visit * Reason Comments Med Refill Encounter Details Date Type Department Care Team ([facility] st Contact Info) Description 09/24/[address] [facility] [address] [place] [address] Kianna Nunez MD [address] [place] [address] Pain Social History Tobacco Use Types Packs/Day [...] 2:30 PM EST Office Visit [facility] OPTOMETRY [address] [place] [address] Jenni Morales OD [address] [place] [address] 06/30/2025 8:45 AM EST Office Visit [facility] ADULT DENTAL [address] [place] [address] She, Caitlin [address] [place] [address] documented as of this encounter Visit Diagnoses Diagnosis Pain Generalized pain documented in this encounter Additional Health Concerns Assessment Noted Time PHQ-9 Depression Total Score: 18 024 10:34 AM EST documented as of this encounter Care Teams Journeyman Powerhouse Operator Relationship Specialty Start Date End Date Kianna Nunez MD [address] [place] [address] PCP - General Family Medicine 02/02/20 Kleber Liu MD Railroad Detective 06/04/04 Anaya Parikh OD Optometry 04/09/24 Dorian Edouard Buoy Tender 06/04/04 [facility] Food Beverage Supervisor 04/09/24 documented as of this encounter
--- OUTSIDE RECORDS SUMMARY | 2025-04-24 12:16 | XMS_ITS | Encounter Summary ---
Author Organization [employer] [facility] Address [address] 7t [place] [address] Care Team Providers Care Repairer Resistance Welding Machines Name Role Phone Kianna Nunez MD Primary Care Provider [phone] Encounter Details Date Type Department Care Team (Late st Contact Info) Description 04/23/2025 Orders Only GENERIC EXTERNAL DATA DEPARTMENT Provider, Generic External Data Social History Tobacco Use Types Packs/Day Years [...] EST Office Visit [facility] OPTOMETRY [address] [place] [address] TarkaJenni, OD [address] [place] [address] 06/30/2025 8:45 AM EST Office Visit [facility] ADULT DENTAL [address] [place] [address] She, Caitlin [address] [place] [address] documented as of this encounter Procedures Procedure Name Priority Date/Time Associated Diagnosis Comments BASIC METABOLIC PANEL Routine 04/23/2025 8:24 AM EST documented in this encounter Results * (ABNORMAL) Basic Metabolic Panel (04/23/2025 8:24 AM EST) Sodium 144 135 - 145 mmol/L [facility] Potassium 3.9 3.3 - 5.1 mmol/L [facility] Chloride 111(H) 96 - 108 mmol/L [facility] Carbon Dioxide 24 22 - 29 mmol/L [facility] Anion Gap 13 12 - 20 [facility] Urea Nitrogen (BUN) 46(H) 9 - 16 mg/dL [facility] Creatinine, Serum 2.96(H) 0.5 - 1.4 mg/dL [facility] Estimated Glomerular Filt Rate 16 [facility] Comment:Chronic Kidney Disea se: Estimated GFR < 60 mL/min/1.45v1Ksjgce Kidney Disease: Estimated GFR < 15 mL/min/1.73m2 Glucose 116(H) 60 - 115 mg/dL [facility] Calcium 9.3 8.4 - 10.2 mg/dL [facility] 04/23/2025 8:24 AM EST 04/23/2025 11:10 AM EST us Generic External Data Provider LAB BLOOD ORDERAB LES Final Result Performing Organization Address City/State/[facility] Co de Phone Number [facility] [address] [place] [address] [phone] documented in this encounter Visit Diagnoses Not on filedocumented in this encounter Additional Health Concerns Assessment Noted Time PHQ-9 Depression Total Score: 7 12/20/19 25 9:35 AM EDT documented as of this encounter Care Teams Repairer Resistance Welding Machines Relationship Specialty Start Date End Date Kianna Nunez MD [address] [place] [address] PCP - General Family Medicine 02/02/20 Kleber Liu MD Fur Plucker 06/04/04 Anaya Parikh OD Optometry 04/09/24 Dorian Edouard Drapery And Upholstery Estimator 06/04/04 [facility] Flake Or Shred Roll Operator 04/09/24 documented as of this encounter
--- OUTSIDE RECORDS SUMMARY | 2025-04-24 12:16 | XMS_ITS | Encounter Summary ---
Author Organization [employer] Address [address] [facility] [address] 7[address] [place] [address] Care Team Providers Care Crystal Flat Grinder Name Role Phone Kianna Nunez MD Primary Care Provider [phone] Reason for Visit * Reason Onset Date Comments restrictions for grand daughter 12/30/2024 Encounter Details Date Type Department Care Team ([facility] st Contact Info) Description 12/30/2024 Telephone [facility] MEDICINE [address] [place] [address] Kianna Nunez MD [address] [place], [place] [phone] restrictions for grand daughter Social History Tobacco [...] Description 06/29/2025 2:30 PM EST Office Visit [facility] OPTOMETRY [address] [place] [address] Jenni Morales, OD [address] [place] [address] 06/30/2025 8:45 AM EST Office Visit [facility] ADULT DENTAL [address] [place] [address] Caitlin Nowak [address] [place] [address] documented as of this encounter Visit Diagnoses Not on filedocumented in this encounter Additional Health Concerns Assessment Noted Time PHQ-9 Depression Total Score: 7 12/20/19 25 9:35 AM EDT documented as of this encounter Care Teams Crystal Flat Grinder Relationship Specialty Start Date End Date Kianna Nunez MD [address] [place] [address] PCP - General Family Medicine 02/02/20 Kleber Liu MD Remediation Technician 06/04/04 Anaya Parikh OD Optometry 04/09/24 Dorian Edouard Ornamental Metal Worker Helper 06/04/04 [facility] Sanitation Manager 04/09/24 documented as of this encounter
--- OUTSIDE RECORDS SUMMARY | 2025-04-24 12:16 | XMS_ITS | Encounter Summary ---
Author Organization [employer] Address [address] 7t [place] [address] Care Team Providers Care Shift Engineer Name Role Phone Kianna Nunez MD Primary Care Provider [phone] Reason for Visit * Reason Onset Date Comments Nurse Triage 01/08/2024 Encounter Details Date Type Department Care Team ([facility] st Contact Info) Description 01/08/2024 Telephone [facility] MEDICINE [address] [place] [address] Kianna Nunez MD [address] [place], [place] [phone] Nurse Triage Social History Tobacco Use Types [...] with others, in a hotel, in a nursing home, living outside on the street, on [...] to speak for Pt. Pt only speaks italian. Pt has been having some rectal bleeding [...] 01/08/2024 2:20 PM EDT Triage call with [place] [id number]. Call to [phone] unable to get connection, callto [phone] unable to get connection. * Telephone Encounter - Ruba Hinson - 01/08/2024 2:09 PM EDT Symptoms: Body Aches, Urination Pain Outcome: Schedule an urgent appointment (within 1 hour) or talk to a nurse or provider soon Reason: Severe pain now The caller accepted this outcome Please contact at [phone] documented in this encounter Plan of Treatment Upcoming Encounters Date Type Department Care Team (Late st Contact Info) Description 06/29/2025 2:30 PM EST Office Visit [facility] OPTOMETRY [address] [place] [address] Tarsukhi Jenni, OD [address] [place] [address] 06/30/2025 8:45 AM EST Office Visit [facility] ADULT DENTAL [address] [place] [address] She, Caitlin [address] [place] [address] documented as of this encounter Visit Diagnoses Not on filedocumented in this encounter Additional Health Concerns Assessment Noted Time PHQ-9 Depression Total Score: 0 05/01/20 23 2:20 PM EST documented as of this encounter Care Teams Shift Engineer Relationship Specialty Start Date End Date Kianna Nunez MD [address] [place] [address] PCP - General Family Medicine 02/02/20 Kleber Liu MD Business Continuity Planner 06/04/04 Anaya Parikh OD Optometry 04/09/24 Dorian Eoduard Etcher Enameling 06/04/04 [facility] Orthotist 04/09/24 documented as of this encounter
--- OUTSIDE RECORDS SUMMARY | 2025-04-24 12:16 | XMS_ITS | Encounter Summary ---
Author Organization [employer] [facility] Address [address]t [place] [address] Care Team Providers Care Community Support Worker Name Role Phone Kianna Nunez MD Primary Care Provider [phone] Reason for Visit * Reason Onset Date Comments insurance update 10/05/2022 Appointment 10/05/2022 Encounter Details Date Type Department Care Team (Late st Contact Info) Description 10/05/2022 Telephone [facility] ADULT DENTAL [address] [place] [address] Felisha Burkett DDS insurance update; Appointment Social [...] - 10/05/2022 10:06 AM EDT Bartolo from [facility] called in stating that patient had appt a couple of days ago but was unable to be seen due to apparently having no insurance coverage. She does have coverage through [facility] benefit providers. The id number for the dental portion would be [id number]. Please update insurance info and contact patient for rescheduling DR documented in this encounter Plan of Treatment Upcoming Encounters Date Type Department Care Team (Late st Contact Info) Description 06/29/2025 2:30 PM EST Office Visit [facility] OPTOMETRY [address] [place], [place] [phone] Starsukhi Jenni, OD [address] [place] [address] 06/30/2025 8:45 AM EST Office Visit [facility] ADULT DENTAL [address] [place] [address] She, Caitlin [address] [place] [address] documented as of this encounter Visit Diagnoses Not on filedocumented in this encounter Care Teams Community Support Worker Relationship Specialty Start Date End Date Kianna Nunez MD [address] [place] [address] PCP - General Family Medicine 02/02/20 Kleber Liu MD Liner Man 06/04/04 Anaya Parikh OD Optometry 04/09/24 Dorian Edouard Heavy Forger 06/04/04 [facility] Back Tender 04/09/24 documented as of this encounter
== END 2025-04-24 12:19 | disposition home or self-care (01) ==
PROVIDERS: PCP Family Medicine; Referring Provider Urology; Visit Provider Internal Medicine Critical Care Medicine
DX: N18.9 Chronic kidney disease, unspecified (principal); D63.1 Anemia in chronic kidney disease
CPT/HCPCS: 99204

== ENCOUNTER 2025-04-24 12:26 | Outpatient (AMB) | payer OTHER, SELFPAY ==
--- NOTE | 2025-04-24 12:56 | MHC.OFFVIS ---
Vital Signs 04/24/25 14:13 Height 5 ft 4 in Weight 102 lb BMI 17.5 BP 116/70 Blood Pressure Location Lt brachial Position Sitting Pulse 86 Pulse Source Doppler Pulse Oximetry (%) 95 Oxygen Delivery Method Room Air Intake Visit Reasons: Abnormal CT scan Allergies Iodinated Contrast Media (CONTRAST,IV) Allergy (Severe, Verified 04/24/25 14:18) ANGIOEDEMA HPI HPI Abnormal CT scan: Details: 69-year-old lady, active 15 pack-year smoker, referred for evaluation abnormal chest imaging that included lower lobe nodule versus mass noted on CT of abdomen that also demonstrated bilateral adrenal masses. Patient complains of unintended weight loss. She denies personal or family history of lung disease or cancer. She is currently using Advair and albuterol MDI with suboptimal control of her dyspnea on exertion. Her PET-CT chest did not demonstrate any pulmonary FDG activity. After the last office visit patient had 3 months follow-up CT chest that showed no significant changes in underlying nodules. [facility] Medical History Acute pyelonephritis E coli bacteremia Rectal candidiasis Urinary tract infection UTI (urinary tract infection) Cocaine use disorder Cocaine use disorder in remission MDD (major depressive disorder), recurrent severe, without psychosis Hx of sepsis History of asthma Hyperlipidemia HTN (hypertension) Cardiomyopathy ICD (implantable cardioverter-defibrillator) in place CAD (coronary artery disease) Chronic heart failure with reduced ejection fraction and diastolic dysfunction GERD (gastroesophageal reflux disease) Surgical History History of surgery Hx of cystoscopy H/O hemorrhoidectomy Stented coronary artery Hx of colonoscopy Family History Father Diabetes HTN (hypertension) Mother Diabetes HTN (hypertension) Sister Throat cancer Family/Other Colon cancer Social History Household Members: None Housing: Apartment Are you a primary geriatric personal care aide to a significant other at home: No Do you presently have visiting nurse or other home services: No Alcohol intake: never Comment: sleeping Patient Tobacco Use Status: Current everyday Tobacco user Tobacco use type: Cigarette Cigarette Packs Per Day: 2 Cigarettes Per Day: 40.0 Years Smoked: 38 e-Cigarette/Vaping Use: Never Used Second Hand Smoke Exposure: Yes Substance Use Type: Marijuana Advance Directives Date on File: 04/26/21 service: No Current occupational status: unemployed and disabled Sexual orientation: Straight/Heterosexual Review of Systems Const Denies daytime sleepiness, Denies excessive sweating, Denies fatigue, Denies fever(s), Denies lethargy, Denies malaise, Denies night sweats, Denies snoring and Denies weight loss Eyes Denies blurry vision and Denies itchy eyes ENT Denies nasal congestion, Denies post nasal drip, Denies sinus pain, Denies sinus pressure and Denies other ( Thrush) Card Denies chest pain, Denies pedal edema, Denies dyspnea, Denies orthopnea and Denies paroxysmal nocturnal dyspnea Resp Denies cough, Denies hemoptysis, Denies excessive phlegm production, Denies dyspnea, Denies snoring and Denies wheezing GI Denies abdominal pain and Denies heartburn Musc Denies myalgias, Denies arthralgias and Denies joint swelling Skin/Breast Denies rash Neuro Denies memory loss and Denies seizure-like activity Psych Denies abnormal sleep pattern, Denies anxiety and Denies memory loss Endo Denies excessive sweating, Denies fatigue and Denies heat intolerance Mt/Lymph Denies easy bruising Aller/Immun Denies itchy eyes, Denies seasonal rhinorrhea and Denies wheezing Physical Exam Vital Signs: Last Vital Signs Pulse 86 04/24/25 14:13 BP 116/70 04/24/25 14:13 Pulse Ox 95 04/24/25 14:13 Oxygen Delivery Method Room Air 04/24/25 14:13 BMI result Body Mass Index 17.5 Const General: no acute distress and alert Nutritional Appearance: not obese Orientation/consciousness: Other orientation findings ( oriented) HEENT Head: Yes atraumatic Eyes General: appearance normal, both eyes and all related structures Sclerae: sclerae normal EOM: EOMs intact bilaterally Neck Neck: Yes supple Lymphatic: no lymphadenopathy noted Resp Effort & Inspection: normal respiratory effort and no use of accessory muscles Auscultation: clear to auscultation bilaterally Cardio Rate: regular rate Rhythm: regular rhythm Heart sounds: no gallops, no murmurs and no rubs Skin General skin exam: other ( warm) Extrem General: No clubbing, No cyanosis and No edema Assessment & Plan Assessment & Plan (1) Pulmonary mass: Code(s): R91.8 - Other nonspecific abnormal finding of lung field Category: Medical Plan: PET scan negative, 3 months follow-up CT chest with no significant changes, will obtain six-month follow-up CT chest. Orders: Orders CT chest wo IV con 10/03/25 R91.8 - Other nonspecific abnormal finding of lung field Coding Level of Care Code Est Pt Level 3 (88236) Diagnoses Pulmonary mass R91.8
[2025-04-24 14:13] VITALS: BP 116/70; PULSE 86; O2SAT 95; BMI 17.5
== END 2025-04-24 14:31 | disposition home or self-care (01) ==
LOC: HO.HPS 12:27
PROVIDERS: PCP Family Medicine; Visit Provider Internal Medicine Pulmonary Disease
DX: R91.8 Other nonspecific abnormal finding of lung field (principal)
CPT/HCPCS: 99213

== ENCOUNTER 2025-04-27 11:24 | Outpatient (REF) | payer OTHER, SELFPAY ==
[2025-04-27 11:45] LABS: MANUAL DIFF FLAG NO
[2025-04-27 12:26] LABS: Hematocrit 36.1 % (37.0-47.0); Hemoglobin 11.7 g/dl (12.0-16.0); Imm Gran Abs Auto 0.01 X10*3/uL (0.00-0.03); Imm Gran Pct Auto 0.2 % (0.0-0.4); Lymphocytes Absolute Auto 1.7 X10*3/uL (1.2-4.9); Mean Corpuscular HGB Conc 32.4 g/dl (31.0-35.0); Mean Corpuscular Hemoglobin 29.9 pg (27.0-33.0); Mean Corpuscular Volume 92.3 fL (80.0-98.0); NRBC Abs Auto 0.020 X10*3/uL (0.0-0.012); NRBC Pct Auto 0.3 /100WBC (0.0-0.2); Platelet Count 220 X10*3/uL (160-400); Red Blood Count 3.91 X10*6/uL (4.20-5.50); White Blood Count 5.8 X10*3/uL (4.8-10.8)
[2025-04-27 12:38] LABS: Appearance Urine Cloudy; Glucose Urine UA Negative (Negative); PH 6.5 (5.0-9.0); Specific Gravity - Urine 1.015 (1.005-1.025); UMIC TRIGGER UA YES
[2025-04-27 13:07] LABS: Parathyroid Hormone Intact 215.6 pg/mL (8.7-77.1)
[2025-04-27 13:09] LABS: Albumin Level 4.6 g/dL (3.5-5.0); Anion Gap 12 (12-20); Blood Urea Nitrogen 35 mg/dL (9-16); Calcium 9.5 mg/dL (8.4-10.2); Carbon Dioxide 26 mmol/L (22-29); Chloride 112 mmol/L (96-108); Magnesium 2.3 mg/dL (1.6-2.6); Potassium 4.2 mmol/L (3.3-5.1); Sodium 146 mmol/L (135-145)
[2025-04-27 14:03] LABS: Protein/Creatinine Ratio, Ur 0.97 (<0.2); Total Protein Urine Random 87 mg/dL (<12)
[2025-04-27 14:24] LABS: Microalbum/Creatinine Ratio Ur 572.8 ug/mg cr (<30)
--- OUTSIDE RECORDS SUMMARY | 2025-04-27 15:02 | XMS_ITS | Encounter Summary ---
Author Organization [employer] Address [address] 7t [place] [address] Care Team Providers Care Technical Support Manager Name Role Phone Kianna Nunez MD Primary Care Provider [phone] Reason for Visit * Reason Onset Date Comments call back needed 02/20/2025 Encounter Details Date Type Department Care Team ([facility] st Contact Info) Description 02/20/2025 Telephone [facility] MEDICINE [address] [place] [address] Kianna Nunez MD [address] [place], [place] [phone] call back needed Social History Tobacco Use [...] - 02/20/2025 4:50 PM EDT TC from [place] with [facility] requesting a call back due to [...] Office Visit [facility] OPTOMETRY [address] [place] [address] TarkaJenni, OD [address] [place] [address] 06/30/2025 8:45 AM EST Office Visit [facility] ADULT DENTAL [address] [place] [address] Caitlin Nowak [address] [place] [address] documented as of this encounter Visit Diagnoses Not on filedocumented in this encounter Additional Health Concerns Assessment Noted Time PHQ-9 Depression Total Score: 7 12/20/19 25 9:35 AM EDT documented as of this encounter Care Teams Technical Support Manager Relationship Specialty Start Date End Date Kianna Nunez MD [address] [place] [address] PCP - General Family Medicine 02/02/20 Kleber Liu MD Home Care Assistant 06/04/04 Anaya Parikh OD Optometry 04/09/24 Dorian Edouard Oyster Culler 06/04/04 [facility] [employer] Administrator 04/09/24 documented as of this encounter
--- OUTSIDE RECORDS SUMMARY | 2025-04-27 15:02 | XMS_ITS | Encounter Summary ---
Author Organization [employer] Address [address] [place] [address] Care Team Providers Care Lpn Cma Name Role Phone Kainna Nunez MD Primary Care Provider [phone] Reason for Visit * Reason Comments Med Refill Encounter Details Date Type Department Care Team ([facility] st Contact Info) Description 09/24/2024 Refill [facility] MED & PEDS [address] [place] [address] Kianna Nunez MD [address] [place] [address] Pain Social History Tobacco Use Types Packs/Day [...] Description 06/29/2025 2:30 PM EST Office Visit [facility] OPTOMETRY [address] [place] [address] Jenni Morales OD [address] [place] [address] 06/30/2025 8:45 AM EST Office Visit [facility] ADULT DENTAL [address] [place] [address] She, Caitlin [address] [place] [address] documented as of this encounter Visit Diagnoses Diagnosis Pain Generalized pain documented in this encounter Additional Health Concerns Assessment Noted Time PHQ-9 Depression Total Score: 18 024 10:34 AM EST documented as of this encounter Care Teams Lpn Cma Relationship Specialty Start Date End Date Kianna Nunez MD [address] [place] [address] PCP - General Family Medicine 02/02/20 Kleber Liu MD Golf Shoe Spike Assembler 06/04/04 Anaya Parikh OD Optometry 04/09/24 Dorian Edouard Patent Law Specialist 06/04/04 [facility] Waterproofer 04/09/24 documented as of this encounter
--- OUTSIDE RECORDS SUMMARY | 2025-04-27 15:02 | XMS_ITS | Encounter Summary ---
Author Organization [employer] Address [address] 7[address] [place] [address] Care Team Providers Care Heading Machine Operator Name Role Phone Kianna Nunez MD Primary Care Provider [phone] Reason for Visit * Reason Onset Date Comments Nurse Triage 01/08/2024 Encounter Details Date Type Department Care Team ([facility] st Contact Info) Description 01/08/2024 Telephone [facility] MEDICINE [address] [place] [address] Kianna Nunez MD [address] [place], [place] [phone] Nurse Triage Social History Tobacco Use Types [...] with others, in a hotel, in a detention, living outside on the street, on a [...] to speak for Pt. Pt only speaks guyanese. Pt has been having some rectal bleeding [...] 01/08/2024 2:20 PM EDT Triage call with [place] [id number]. Call to [phone] unable to get connection, callto [phone] unable to get connection. * Telephone Encounter - Ruba Hinson - 01/08/2024 2:09 PM EDT Symptoms: Body Aches, Urination Pain Outcome: Schedule an urgent appointment (within 1 hour) or talk to a nurse or provider soon Reason: Severe pain now The caller accepted this outcome Please contact at [phone] documented in this encounter Plan of Treatment Upcoming Encounters Date Type Department Care Team (Late st Contact Info) Description 06/29/2025 2:30 PM EST Office Visit [facility] OPTOMETRY [address] [place] [address] Tarsukhi Jenni, OD [address] [place] [address] 06/30/2025 8:45 AM EST Office Visit [facility] ADULT DENTAL [address] [place] [address] She, Caitlin [address] [place] [address] documented as of this encounter Visit Diagnoses Not on filedocumented in this encounter Additional Health Concerns Assessment Noted Time PHQ-9 Depression Total Score: 0 05/01/20 23 2:20 PM EST documented as of this encounter Care Teams Heading Machine Operator Relationship Specialty Start Date End Date Kianna Nunez MD [address] [place] [address] PCP - General Family Medicine 02/02/20 Klbeer Liu MD Dough Cutting Machine Operator 06/04/04 Anaya Parikh OD Optometry 04/09/24 Dorian Edouard Category Specialist 06/04/04 [facility] Calcine Furnace Tender 04/09/24 documented as of this encounter
--- OUTSIDE RECORDS SUMMARY | 2025-04-27 15:02 | XMS_ITS | Clinical Summary ---
Author Organization [facility] Address [address] [place] [address] Phone Care Team Providers Care Youth Specialist Name Role Phone Kianna Nunez MD Primary Care Provider [phone] Encounters Date Type Department Care Team Description 01/27/2025 10:45 AM EDT - 01/27/2025 11:59 PM EDT Hospital Encounter [facility] PET Scan [address] [place] [address] Other nonspecific abnormal finding of [...] Signed Date: 01/28/2025 12:32 ET Workstation ID: [id number] Transcribed By: Self Edit Transcribed Date: 01/28/2025 [...] Signed Date: 01/28/2025 12:32 ET Workstation ID: [id number] Transcribed By: Self Edit Transcribed Date: 01/28/2025 12:23 ET Paul Andre MD IM NM PROCEDURES Final Result from Last [address] [place] [id number] [facility] Care Teams Youth Specialist Relationship Specialty Start Date End Date Kianna Nunez MD [address] [place] [address] PCP - General 08/27/23
--- OUTSIDE RECORDS SUMMARY | 2025-04-27 15:02 | XMS_ITS | Encounter Summary ---
Author Organization [email or web address] [facility] Address [address] [facility] [address]t [place] [address] Care Team Providers Care Quiller Hand Name Role Phone Kianna Nunez MD Primary Care Provider [phone] Reason for Visit * Reason Comments Med Refill Encounter Details Date Type Department Care Team (Late st Contact Info) Description 02/20/2023 Refill [facility] MED & PEDS [address] [place], [place] [phone] Kianna Nunez MD [address] [place], [place] [phone] Primary hypertension Social History Tobacco Use Types [...] Description 06/29/2025 2:30 PM EST Office Visit [facility] OPTOMETRY [address] [place], [place] [phone] Jenni Morales, OD [address] [place], [place] [phone] 06/30/2025 8:45 AM EST Office Visit [facility] ADULT DENTAL [address] [place], [place] [phone] Caitlin Nowak [address] [place], [place] [phone] documented as of this encounter Visit Diagnoses Diagnosis Primary hypertension Unspecified essential hypertension documented in this encounter Care Teams Quiller Hand Relationship Specialty Start Date End Date Kianna Nunez MD [address] [place] [address] PCP - General Family Medicine 02/02/20 Kleber Liu MD Online Communications Manager 06/04/04 Anaya Parikh OD Optometry 04/09/24 Dorian Edouard Integration Technician 06/04/04 [facility] Hydraulic And Plumbing Installer 04/09/24 documented as of this encounter
--- OUTSIDE RECORDS SUMMARY | 2025-04-27 15:02 | XMS_ITS | Encounter Summary ---
Author Organization [facility] Address [address] [place] [address] Care Team Providers Care Sewing Machine Operator Name Role Phone Kianna Nunez MD Primary Care Provider [phone] Encounter Details Date Type Department Care Team (Late st Contact Info) Description 04/07/2025 Telephone [facility] [address] [place] [address] Neetu Goodwin, RN [address] [place] [address] Social History Tobacco Use Types Packs/Day Years [...] Visit [facility] OPTOMETRY [address] [place] [address] Jenni Morales, OD [address] [place] [address] 06/30/2025 8:45 AM EST Office Visit [facility] ADULT DENTAL [address] [place] [address] She, Caitlin [address] [place] [address] documented as of this encounter Visit Diagnoses Not on filedocumented in this encounter Additional Health Concerns Assessment Noted Time PHQ-9 Depression Total Score: 7 12/20/19 25 9:35 AM EDT documented as of this encounter Care Teams Sewing Machine Operator Relationship Specialty Start Date End Date Kianna Nunez MD [address] [place] [address] PCP - General Family Medicine 02/02/20 Kleber Liu MD Quality Supervisor 06/04/04 Anaya Parikh OD Optometry 04/09/24 Dorian Edouard Product Strategy Director 06/04/04 [facility] Social Services Aide 04/09/24 documented as of this encounter
--- OUTSIDE RECORDS SUMMARY | 2025-04-27 15:02 | XMS_ITS | Encounter Summary ---
Author Organization [employer] Address [address] 7[address] [place] [address] Care Team Providers Care Grocery Store Clerk Name Role Phone Kianna Nunez MD Primary Care Provider [phone] Reason for Visit * Reason Onset Date Comments Pre-op Exam 11/15/2023 Encounter Details Date Type Department Care Team ([facility] st Contact Info) Description 11/15/2023 Telephone [facility] CHC MED & PEDS [address] [place] [address] Kianna Nunez MD [address] [place] [address] Pre-op Exam Social History Tobacco Use Types [...] with others, in a hotel, in a snf, living outside on the street, on a [...] no Surgeon's name: Dr. Agustin Facility name: [facility] Surgeon's office number: [phone] Surgeon's office fax number: [phone] Contact name (person you spoke with): Kelli Last office note from surgeon requested: Pre-Op notes documented in this encounter Plan of Treatment Upcoming Encounters Date Type Department Care Team (Late st Contact Info) Description 06/29/2025 2:30 PM EST Office Visit [facility] OPTOMETRY [address] [place] [address] StarkaJenni, OD [address] [place] [address] 06/30/2025 8:45 AM EST Office Visit [facility] ADULT DENTAL [address] [place] [address] She, Caitlin [address] [place] [address] documented as of this encounter Visit Diagnoses Not on filedocumented in this encounter Additional Health Concerns Assessment Noted Time PHQ-9 Depression Total Score: 0 05/01/20 23 2:20 PM EST documented as of this encounter Care Teams Grocery Store Clerk Relationship Specialty Start Date End Date Kianna Nunez MD [address] [place] [address] PCP - General Family Medicine 02/02/20 Kleber Liu MD Rouge Sifter And Miller 06/04/04 Anaya Parikh OD Optometry 04/09/24 Dorian Edouard Materials Specialist 06/04/04 [employer] Se[employer] Aircraft 04/09/24 documented as of this encounter
--- OUTSIDE RECORDS SUMMARY | 2025-04-27 15:02 | XMS_ITS | Encounter Summary ---
Author Organization [employer] [facility] Address [address] [place] [address] Care Team Providers Care Vocational Rehabilitation Supervisor Name Role Phone Kianna Nunez MD Primary Care Provider Encounter Details Date Type Department Care Team (Late st Contact Info) Description 01/28/2025 Orders Only [facility] [address] [place], [place] [phone] ProviderChacho MD Social History Tobacco Use Types [...] Description 06/29/2025 2:30 PM EST Office Visit [facility] OPTOMETRY [address] [place] [address] Jenni Morales, OD [address] [place] [address] 06/30/2025 8:45 AM EST Office Visit [facility] ADULT DENTAL [address] [place] [address] She, Caitlin [address] [place] [address] documented as of this encounter Procedures Procedure [...] AM EDT Narrative 02/26/2025 1:35 PM EDT [address] [address] Nuclear Medicine Report Signed Patient: Georgiana Earl MR#: [id number] 28 : 1955 Acct:[id number] Age/Sex: 69 / F ADM Date: 02/26/25 Loc: TERAJulianMILLIERICHARDSON Attending Dr: Paul Rose MD Ordering Physician: Paul Rose MD Date of Service: 02/26/25 Procedure(s): NM renal flow w pharm int Accession Number(s): [id number] cc: Paul Rose MD; Kianna Nunez MD [...] 02/26/25 1332 DD/ 1059 TD/TT: 02/26/25 1230 Insurance Office Manager: Procedure Note Donotuseinterpreter, Image - 02/26/[address] [address] Nuclear Medicine Report Signed Patient: Georgiana EarlMR#: [id number] 28 : 4Acct:[id number] Age/Sex: 69 / FADM Date: 02/26/25 Loc: NEELIMA Attending Dr: Paul Rose MD Ordering Physician: Paul Rose MD Date of Service: 02/26/25 Procedure(s): NM renal flow w pharm int Accession Number(s): [id number] cc: Paul Rose MD; Kianna Nunez MD [...] 02/26/25 1332 DD/ 1059 TD/TT: 02/26/25 1230 Insurance Office Manager: [facility] External Provider IM NM PROCEDURES [...] documented as of this encounter Care Teams Vocational Rehabilitation Supervisor Relationship Specialty Start Date End Date Kianna Nunez MD [address] [place] [address] PCP - General Family Medicine 02/02/20 Kleber Liu MD Commercial Analyst 06/04/04 Anaya Parikh OD Optometry 04/09/24 Dorian Edouard Fish Tender 06/04/04 [employer] [facility] Transition Coordinator 04/09/24 documented as of this encounter
--- OUTSIDE RECORDS SUMMARY | 2025-04-27 15:02 | XMS_ITS | Encounter Summary ---
Author Organization [employer] [facility] Address [address] [place] [address] Care Team Providers Care Grated Cheese Maker Name Role Phone Kianna Nunez MD Primary Care Provider [phone] Encounter Details Date Type Department Care Team [...] Description 06/29/2025 2:30 PM EST Office Visit [facility] OPTOMETRY [address] [place] [address] TarkaJenni, OD [address] [place] [address] 06/30/2025 8:45 AM EST Office Visit [facility] ADULT DENTAL [address] [place] [address] She, Caitlin [address] [place] [address] documented as of this encounter Procedures Procedure Name Priority Date/Time Associated Diagnosis Comments BASIC METABOLIC PANEL Routine 04/23/2025 8:24 AM EST documented in this encounter Results * (ABNORMAL) Basic Metabolic Panel (04/23/2025 8:24 AM EST) Sodium 144 135 - 145 mmol/L [facility] Potassium 3.9 3.3 - 5.1 mmol/L [facility] Chloride 111(H) 96 - 108 mmol/L [facility] Carbon Dioxide 24 22 - 29 mmol/L [facility] Anion Gap 13 12 - 20 [facility] Urea Nitrogen (BUN) 46(H) 9 - 16 mg/dL [facility] Creatinine, Serum 2.96(H) 0.5 - 1.4 mg/dL [facility] Estimated Glomerular Filt Rate 16 [facility] Comment:Chronic Kidney Disea se: Estimated GFR < 60 mL/min/1.47l0Belwvq Kidney Disease: Estimated GFR < 15 mL/min/1.73m2 Glucose 116(H) 60 - 115 mg/dL [facility] Calcium 9.3 8.4 - 10.2 mg/dL [facility] 04/23/2025 8:24 AM EST 04/23/2025 11:10 AM EST us Generic External Data Provider LAB BLOOD ORDERAB LES Final Result Performing Organization Address City/State/[facility] Co de Phone Number [facility] [address] [place] [address] [phone] documented in this encounter Visit Diagnoses Not on filedocumented in this encounter Additional Health Concerns Assessment Noted Time PHQ-9 Depression Total Score: 7 12/20/19 25 9:35 AM EDT documented as of this encounter Care Teams Grated Cheese Maker Relationship Specialty Start Date End Date Kianna Nunez MD [address] [place] [address] PCP - General Family Medicine 02/02/20 Kleber Liu MD It Systems Engineer 06/04/04 Anaya Parikh OD Optometry 04/09/24 Dorian Edouard Design Engineer Agricultural Equipment 06/04/04 [employer] Baseball Coach 04/09/24 documented as of this encounter
--- OUTSIDE RECORDS SUMMARY | 2025-04-27 15:03 | XMS_ITS | Encounter Summary ---
Author Organization [employer] Address [address] 7[address] [place] [address] Care Team Providers Care District Director Name Role Phone Kianna Nunez MD Primary Care Provider [phone] Encounter Details Date Type Department Care Team (Late Contact Info) Description 08/31/2022 Orders Only [facility] CHC MED & PEDS [address] [place], [place] [phone] Timothy Ibrahim MD [address] [place] [address] Social History Tobacco Use Types Packs/Day Years [...] Office Visit [facility] OPTOMETRY [address] [place], [place] [phone] TarkaJenni, OD [address] [place] [address] 06/30/2025 8:45 AM EST Office Visit [facility] ADULT DENTAL [address] [place] [address] Caitlin Nowak [address] [place] [address] documented as of this encounter Procedures Procedure Name Priority Date/Time Associated Diagnosis Comments CULTURE, URINE, ROUTINE Routine 01/05/2023 10:30 AM EDT documented in this encounter Results * Culture, Urine, Routine (01/05/2023 10:30 AM EDT) Urine specimen obtained by clean catch procedure / Unknown 01/05/2023 10:30 AM EDT 01/05/2023 2:58 PM EDT Comment:[facility] - 01/07/2023 7:34 AM EDT [...] City/State/[facility] Co de Phone Number [facility] [address] [place] [phone] documented in this encounter Visit Diagnoses Not on filedocumented in this encounter Care Teams District Director Relationship Specialty Start Date End Date Kianna Nunez MD [address] [place] [address] PCP - General Family Medicine 02/02/20 Kleber Liu MD Ferryboat Pilot 06/04/04 Anaya Parikh OD Optometry 04/09/24 Dorian Edouard Adjuster 06/04/04 [employer] Networking Instructor Adjunct 04/09/24 documented as of this encounter
--- OUTSIDE RECORDS SUMMARY | 2025-04-27 15:03 | XMS_ITS | Encounter Summary ---
Author Organization [employer] [facility] Address [address] [place] [address] Care Team Providers Care Restaurant Host/Hostess Name Role Phone Kianna Nunez MD Primary Care Provider [phone] Reason for Visit * Reason Onset Date Comments insurance update 10/05/2022 Appointment 10/05/2022 Encounter Details Date Type Department Care Team (Late st Contact Info) Description 10/05/2022 Telephone [facility] ADULT DENTAL [address] [place] [address] Felisha Burkett DDS insurance update; Appointment Social [...] - 10/05/2022 10:06 AM EDT Bartolo from [facility] called in stating that patient had appt a couple of days ago but was unable to be seen due to apparently having no insurance coverage. She does have coverage through [employer] benefit providers. The id number for the dental portion would be [id number]. Please update insurance info and contact patient for rescheduling DR documented in this encounter Plan of Treatment Upcoming Encounters Date Type Department Care Team (Late st Contact Info) Description 06/29/2025 2:30 PM EST Office Visit [facility] OPTOMETRY [address] [place], [place] [phone] Starsukhi Jenni, OD [address] [place] [address] 06/30/2025 8:45 AM EST Office Visit [facility] ADULT DENTAL [address] [place] [address] She, Caitlin [address] [place] [address] documented as of this encounter Visit Diagnoses Not on filedocumented in this encounter Care Teams Restaurant Host/Hostess Relationship Specialty Start Date End Date Kianna Nunez MD [address] [place] [address] PCP - General Family Medicine 02/02/20 Kleber Liu MD Clerk Carrier 06/04/04 Anaya Parikh OD Optometry 04/09/24 Dorian Edouard Repair Armature Winder 06/04/04 [employer] Journalism Teacher 04/09/24 documented as of this encounter
--- OUTSIDE RECORDS SUMMARY | 2025-04-27 15:03 | XMS_ITS | Clinical Summary ---
Author Organization [employer] Address [address] [place] [address] Care Team Providers Care Compliance Investigator Name Role Phone Kinana Nunez MD Primary Care Provider [phone] Allergies Active Allergy Reactions Criticality Noted Date [...] FOR 2 DAYS 02/06/20 25 Active PEG 3185-EMw-CrSie-Na Cl-NaSulf (PEG-3350/Electro lytes) 236 g reconstituted solution [...] referred for therapy and information given to granddaughter/OFFAL WORKER. Assessment & Plan (04/09/2024 11:16 AM EST): [...] and I will also send her to senior consulting manager. Labs: CBC, Comprehensive Metabolic Panel, Lipid [...] is to refer patientfor OP individual therapy. [facility] crisis line number provided. At this time Georgiana Earl meets criteria for Visit Diagnoses: Problem List Items Addressed This Visit Other Anxiety Housing problems Patient ready to address current needs Yes Strengths include readiness to take action and awareness of the problem PLAN: 1. Follow up with [facility]: Recommended for follow-up: as needed 2. Patient goal is to feel less anxious and be connected with services 3. Behavioral Recommendations a. Referral for OP individual therapy b. Utilize coping mechanisms that works for her to decrease symptoms c. Contact [facility] crisis line if needed (information [...] is to refer patientfor OP individual therapy. [facility] crisis line number provided. At this time Georgiana Earl meets criteria for Visit Diagnoses: Problem List Items Addressed This Visit Other Anxiety Housing problems Patient ready to address current needs Yes Strengths include readiness to take action and awareness of the problem PLAN: 1. Follow up with [facility]: Recommended for follow-up: as needed 2. Patient goal is to feel less anxious and be connected with services 3. Behavioral Recommendations a. Referral for OP individual therapy b. Utilize coping mechanisms that works for her to decrease symptoms c. Contact [facility] crisis line if needed (information [...] BP medication when she gets back to [place] today. -Seek medical attention if she has [...] DEPARTMENT Provider, Generic External Data 04/09/2025 Telephone [facility] MEDICINE [address] [place] [phone] Gisele Salamanca, NETTA Care Coordination 04/07/2025 3:00 PM EST Clinical Support [facility] [address] [place] [address] Concepcion Noyola, NETTA Primary hypertension [I10] 04/07/2025 Telephone [facility] WALK-IN CENTER [address] [place] [address] Neetu Goodwin RN 04/07/2025 Travel 04/06/2025 Refill [facility] [address] [place] [address] Kianna Nunez MD Painful spasm of anus 04/03/[address] Telephone Call 03/30/2025 10:00 AM EDT Office Visit [facility] [address] [place] [address] Kianna Nunez MD Primary hypertension (Primary Dx); Pain; Encounter for immunization; Encounter for vaccination 03/30/2025 Travel 03/27/2025 Telephone [facility] [address] [place] [address] Kianna Nunez MD Chart Prep 03/23/2025 Orders Only GENERIC EXTERNAL DATA DEPARTMENT Provider, Generic External Data 03/11/[address] [address] Kianna Nunez MD 03/08/2025 Refill [facility] CHC MED & PEDS [address] [place], [place] [phone] Lara Alanis MD Anxiety; Chronic heart failure, unspecified heart failure type (HCC) 02/27/2025 Telephone [facility] MEDICINE [address] [place] [address] Nutrition referral 02/20/2025 Telephone [facility] MEDICINE [address] [place] [address] Kianna Nunez MD call back needed 02/10/2025 Telephone [facility] [address] [place] [address] Kianna Nunez MD US BREAST ORDER 02/05/2025 Refill [facility] CHC MED & PEDS [address] [place], [place] [phone] Kianna Nunez MD 02/03/2025 Refill [facility] [address] [place], [place] [phone] Lara Alanis MD Failure to thrive in adult 01/28/2025 Orders Only [facility] [address] [place] [address] Chacho Romero MD 01/27/2025 Telephone [facility] [address] [place] [address] Kianna Nunez MD from Last 3 Months [...] the past 12 months, has t he Twist, gas, oil or water doo threatened to shut off services in your [...] 2:30 PM EST Office Visit [facility] OPTOMETRY [address] [place] [address] Jenni Morales, OD [address] [place] [address] 06/30/2025 8:45 AM EST Office Visit [facility] ADULT DENTAL [address] [place] [address] She, Caitlin [address] [place] [address] Health Maintenance Due Date Last Done Comments [...] MID THIGH Routine 01/27/2025 3:26 PM EDT LIPID PANEL, STANDARD Routine 12/31/2024 11:02 AM [...] included. Sodium 144 135 - 145 mmol/L [facility] Potassium 3.9 3.3 - 5.1 mmol/L [facility] Chloride 111(H) 96 - 108 mmol/L [facility] Carbon Dioxide 24 22 - 29 mmol/L [facility] Anion Gap 13 12 - 20 [facility] Urea Nitrogen (BUN) 46(H) 9 - 16 mg/dL [facility] Creatinine, Serum 2.96(H) 0.5 - 1.4 mg/dL [facility] Estimated Glomerular Filt Rate 16 [facility] Comment:Chronic Kidney Disea se: Estimated GFR < 60 mL/min/1.23k9Thipct Kidney Disease: Estimated GFR < 15 mL/min/1.73m2 Glucose 116(H) 60 - 115 mg/dL [facility] Calcium 9.3 8.4 - 10.2 mg/dL [facility] 04/23/2025 8:24 AM EST 04/23/2025 11:10 AM EST us Generic External Data Provider LAB BLOOD ORDERAB LES Final Result [facility] [address] [place] [phone] * CT Chest w/o Contrast (04/17/2025 8:03 AM EST) Anatomical Region Laterality Modality Body, Chest Computed Tomogra phy 04/17/2025 8:03 AM EST Narrative 04/17/2025 8:[address] [address] [address] Scan Report Signed Patient: Georgiana Earl MR#: [id number] 29 : 1955 Acct:[id number] Age/Sex: 70 / F ADM Date: 04/17/25 Loc: HO.CT Attending Dr: Paul Andre MD Ordering Physician: Paul Andre MD Date of Service: 04/17/25 Procedure(s): CT chest wo IV con Accession Number(s): [id number] cc: Paul Andre MD; Kianna Nunez MD Report Number: [id number]: Total DLP = 82.00 mGy-cm Reason for [...] iterative reconstruction technique DLP: 82 mGy-cm FINDINGS: [place]: Cardiomediastinal silhouette appears prominent to the left [...] 04/17/25 0846 DD/ 0803 TD/TT: 04/17/25 0831 Research Engineer: Procedure Note Donotuseinterpreter, Image - 04/17/[address] [address] [address] Scan Report Signed Patient: Desirae Earl#: [id number] 29 : 4Acct:[id number] Age/Sex: 70 / FADM Date: 04/17/25 Loc: HO.CT Attending Dr: Paul Andre MD Ordering Physician: Paul Andre MD Date of Service: 04/17/25 Procedure(s): CT chest wo IV con Accession Number(s): [id number] cc: Paul Andre MD; Kianna Nunez MD Report Number: [id number]: Total DLP = 82.00 mGy-cm Reason for [...] iterative reconstruction technique DLP: 82 mGy-cm FINDINGS: [place]: Cardiomediastinal silhouette appears prominent to the left [...] Chase Bobby MDin OV> 04/17/25 0846 DD/ 0803 TD/TT: 04/17/25 0831 Research Engineer: [facility] External Provider IMG CT PROCEDURES Final Result * Dexamethasone (03/23/2025 8:14 AM EDT) Dexamethasone <20 ng/dL [facility] Comment:Reference Ranges for Dexamethasone:Baseline: Less than 20 ng/dL1 mg dexamethasone overnight: 180-550 ng/dL (8:00-10:00 AM)This test was developed and its analytical performancecharacteristics have been determined by [employer].It has not been cleared or approved by the FDA. This assayhas been validated pursuant to the CLIA regulations and isused for clinical purposes.THIS TEST WAS PERFORMED AT:[employer] [id number] [place] [address]WCXRCLOGAN BOLANOS MD,PHD,WENDY 03/23/2025 8:14 AM EDT 03/23/2025 11:27 AM EDT us Generic External Data Provider LAB BLOOD ORDERAB LES Final Result [facility] [address] [place] [address] [phone] * (ABNORMAL) Metanephrines, Fractionated, Free, LC/MS/MS, Plasma (03/23/2025 8:14 AM EDT) Metanephrine, Free 59(A) <=57 pg/mL [facility] Comment:This test was develo ped and its analytical performancecharacteristics have been determined by [employer] [place], [place]. It hasnot been cleared or approved by the U.S. Food and DrugAdministration. This assay has been validated pursuantto the CLIA regulations and is used for clinicalpurposes. Normetanephrine, Free 383(A) <=148 pg/mL [facility] Comment:This test was develo ped and its analytical performancecharacteristics have been determined by [employer] [place], [place]. It hasnot been cleared or approved by the U.S. Food and DrugAdministration. This assay has been validated pursuantto the CLIA regulations and is used for clinicalpurposes. Total, Free (MN+NMN) 442(A) <=205 pg/mL [facility] Comment: For additional information, please refer tohttp://education.Octmami/faq/MetFractFree(This link is being provided for informational/educatioinformational/educational purposes [...] its analytical performancecharacteristics have been determined by [employer]. It hasnot been cleared or approved by the U.S. Food and DrugAdministration. This assay has been validated pursuantto the CLIA regulations and is used for clinicalpurposes.THIS TEST WAS PERFORMED AT:[employer] [id number] [place] [address]NZUJHCYSOUMYA CHRISTOPHER MD,PHD 03/23/2025 8:14 AM EDT 03/23/2025 11:01 AM EDT Generic External Data Provider LAB BLOOD ORDERAB LES Final Result Performing Organization Address [facility] Co de Phone Number [facility] [address] [place] [phone] * Cortisol Random (03/23/2025 8:14 AM EDT) [facility] Cortisol Random 17.0 ug/dL [facility] Comment:Reference Range*: Be fore 10 am 6.2-19.4 ug/dL After 5 pm 2.3-11.9 ug/dL*Please interpret above results accordingly.This test was performed using the [employer] chemiluminescentmethod. Values obtained from different assay methods cannotbe used interchangeably.Patients receiving fludrocortisone, prednisolone orprednisone may show artificially elevated cortisol valuesdue to cross-reactivity. 03/23/2025 8:14 AM EDT 03/23/2025 11:01 AM EDT Generic External Data Provider LAB BLOOD ORDERAB LES Final Result Performing Organization Address [facility]/ZIP Co de Phone Number [facility] [address] [place] [phone] * Vitamin B12 (Cobalamin) and Folate Panel, Serum (03/23/2025 8:14 AM EDT) Pathologist [facility] Vitamin B12 307 200 - 900 pg/mL [facility] Comment:NORMAL 200-900 PG/ML INDETERMINATE 160-199 PG/ML DEFICIENT < 160 PG/ML Folate 13.0 > or = 4.0 ng/mL [facility] Comment:Reference Values:> o r = 4.0 ng/mL< 4.0 ng/mL suggests folate deficiency Methotrexate, aminopterin and folinic acid(leucovorin) are chemotherapeutic agents whose molecularstructures are similar to folate; therefore, the Architectfolate assay cannot be used for patients using these drugs. 03/23/2025 8:14 AM EDT 03/23/2025 11:05 AM EDT Kianna Nunez MD LAB BLOOD ORDERABLES Final Re sult Performing Organization Address [facility]/ZIP Co de Phone Number [facility] [address] [place] [phone] * TSH with Reflex to Free T4 (03/23/2025 8:14 AM EDT) Pathologist [facility] TSH reflex Free T4 1.78 0.32 - 4.0 uIU/mL [facility] 03/23/2025 8:14 AM EDT 03/23/2025 11:01 AM EDT Kianna Nunez MD LAB BLOOD ORDERABLES Final Re sult Performing Organization Address City/[facility]/ZIP Co de Phone Number [facility] [address] [place] [phone] * HIV-1/2 Antigen and Antibodies, Fourth Generation, with Reflexes (03/23/2025 8:14 AM EDT) Pathologist [facility] HIV AB/AG Nonreactive Nonreactive [facility] Comment:HIV-1 p24 Ag and/or HIV-1/HIV-2 Ab not detected.A test result that is nonreactive does not exclude thepossibility of exposure to or infection with HIV-1 and/orHIV-2. Nonreactive results in this assay for individualswith prior exposure to HIV-1 and/or HIV-2 may be due toantigen and antibody levels that are below the limit ofdetection of this assay.[facility] HIV Ag/Ab Combo assay result andsupplemental assay results should be interpreted inconjunction with the patient's clinical presentation,history and other laboratory results. If the results areinconsistent with clinical evidence, additional testing issuggested to confirm the result. Blood Venous blood specimen / Unknown 03/23/2025 8:14 AM EDT 03/23/2025 11:01 AM EDT us Kianna Nunez MD LAB BLOOD ORDERABLES Final Re sult Performing Organization Address City/State/[facility] Co de Phone Number [facility] [address] [place] [phone] * NM Kidney Flow/Function w/ Pharmacological Intervention (02/26/2025 10:59 AM EDT) Anatomical Region Laterality Modality Body Nuclear Medicine 02/26/2025 10:5 9 AM EDT Narrative 02/26/2025 1:35 PM EDT [address] [address] Nuclear Medicine Report Signed Patient: Georgiana Earl MR#: [id number] 29 : 1955 Acct:[id number] Age/Sex: 69 / F ADM Date: 02/26/25 Loc: NEELIMA Attending Dr: Paul Rose MD Ordering Physician: Paul Rose MD Date of Service: 02/26/25 Procedure(s): NM renal flow w pharm int Accession Number(s): [id number] cc: Paul Rose MD; Kianna Nunez MD [...] 02/26/25 1332 DD/ 1059 TD/TT: 02/26/25 1230 Research Engineer: Procedure Note Donotuseinterpreter, Image - 02/26/2025 [place] [address] Nuclear Medicine Report Signed Patient: Georgiana Earl#: [id number] 29 : 1955cct:[id number] Age/Sex: 69 / FADM Date: 02/26/25 Loc: NEELIMA Attending Dr: Paul Rose MD Ordering Physician: Paul Rose MD Date of Service: 02/26/25 Procedure(s): NM renal flow w pharm int Accession Number(s): [id number] cc: Paul Rose MD; Kianna Nunez MD [...] 02/26/25 1332 DD/ 1059 TD/TT: 02/26/25 1230 Research Engineer: [facility] External Provider IMG NM PROCEDURES Final Result * PET/CT Bone Skull Base to Mid Thigh (01/27/2025 3:26 PM EDT) Anatomical Region Laterality Modality Body Computed Tomogra phy Historical Provider MD NAIDU CT PROCEDURES Final R esult * Lipid Panel, Standard (12/31/2024 11:02 AM EDT) Triglycerides 71 <150 mg/dL [facility] Comment:Desirable Triglyceri de: less than 150 mg/dLBorderline High Triglyceride 150-199 mg/dLHigh Triglyceride: 200-499 mg/dLVery High Triglyceride: greater than or equal to 5OO mg/dL Cholesterol 147 <200 mg/dL [facility] Comment:Desirable Cholestero l: less than 200 mg/dLBorderline High Cholesterol: 200-239 mg/dLHigh Cholesterol: greater than 239 mg/dL LDL Cholesterol Calculated 64 <100 mg/dL [facility] Comment:Desirable LDL: less than 100 mg/dLNear Optimal/Above Optimal LDL: 110- 129 mg/dLBorderline High LDL: 130-159 mg/dLHigh LDL: 160-189 mg/dLVery High LDL: greater than or equal to 190 mg/dL HDL Cholesterol 69 >40 mg/dL [facility] Comment:Desirable HDL: great er than 40 mg/dL Note: This HDL assay may give artificially low results in patients with liver disease. Blood Venous blood specimen / Unknown 12/31/2024 11:02 AM EDT 12/31/2024 1:19 PM EDT Kianna Nunez MD LAB BLOOD ORDERABLES Final Re sult Performing Organization Address [facility] Co de Phone Number [facility] [address] [place] [phone] * Hepatitis C Antibody with Reflex to HCV, RNA, Quantitative, Real-Time PCR (05/09/2024 2:01 PM EST) Hepatitis C Antibody Nonreactive Nonreactive [facility] Comment:Antibodies to HCV no t detected; does not exclude early acuteHCV infection. Blood Venous blood specimen / Unknown 05/09/2024 2:01 PM EST 05/09/2024 3:54 PM EST Kianna Nunez MD LAB BLOOD ORDERABLES Final Re sult Performing Organization Address [facility] Co de Phone Number [facility] [address] [place] [phone] * DIGITAL BILATERAL SCREEN 1 (01/10/2019 1:40 PM EDT) Anatomical Region Laterality Modality Breast Bilateral Mammography 01/10/2019 1:40 PM EDT Narrative 01/10/2019 1:43 PM EDT Refer to the Notes tab for result details [facility] Procedure: DIGITAL BILATERAL SCREEN 1 Procedure Note Provider, MD Chacho - 08/26/2022 Refer to the Notes tab for result details [facility] Procedure: DIGITAL BILATERAL SCREEN 1 Jose Syed SEISMOGRAPH OBSERVER IMG BI PROCEDURES Final Result from Last 3 Months or Most Recently Relevant to Health Maintenance [facility] [address] [place] [phone] [address] [place] [phone] Care Teams Compliance Investigator Relationship Specialty Start Date End Date Kianna Nunez MD [address] [place] [phone] PCP - General Family Medicine 02/02/20 Kleber Liu MD Screen Printing Paster 06/04/04 Anaya Parikh OD Optometry 04/09/24 Dorian Edouard Tower Observer 06/04/04 Temp Home Client Service Professional 04/09/24
--- OUTSIDE RECORDS SUMMARY | 2025-04-27 15:03 | XMS_ITS | Encounter Summary ---
Author Organization [employer] Address [address] [place] [address] Care Team Providers Care Phlebotomist Associate Name Role Phone Kianna Nunez MD Primary Care Provider [phone] Reason for Visit * Reason Onset Date Comments restrictions for grand daughter 12/30/2024 Encounter Details Date Type Department Care Team ([facility] st Contact Info) Description 12/30/2024 Telephone [facility] MEDICINE [address] [place] [address] Kianna Nunez MD [address] [place], [place] [phone] restrictions for grand daughter Social History Tobacco [...] permission and then telling her daughters in [place] that she is not coming to her appts. Upon review of patient chart, her appt on 01/05 has not been cancelled. However she states that her grand daughter Mendy Nye has cancelled appts in the past.She says she needs to keep this appt because her daughters are comin gin from [place] to meet her PCP and discuss medical concerns. She does not want her grand daughter Mendy Nye to have access toher information DR documented in this encounter Plan of Treatment Upcoming Encounters Date Type Department Care Team (Late st Contact Info) Description 06/29/2025 2:30 PM EST Office Visit [facility] OPTOMETRY [address] [place] [address] Jenni oMrales, OD [address] [place] [address] 06/30/2025 8:45 AM EST Office Visit [facility] ADULT DENTAL [address] [place] [address] Caitlin Nowak [address] [place] [address] documented as of this encounter Visit Diagnoses Not on filedocumented in this encounter Additional Health Concerns Assessment Noted Time PHQ-9 Depression Total Score: 7 12/20/19 25 9:35 AM EDT documented as of this encounter Care Teams Phlebotomist Associate Relationship Specialty Start Date End Date Kianna Nunez MD [address] [place] [address] PCP - General Family Medicine 02/02/20 Kleber Liu MD Coat Examiner 06/04/04 Anaya Parikh OD Optometry 04/09/24 Dorian Edouard Supervisor Packing Room 06/04/04 Samira Home Hand Candle Molder 04/09/24 documented as of this encounter
== END 2025-04-27 11:25 | disposition home or self-care (01) ==
LOC: HO.LAB 11:24
PROVIDERS: PCP Family Medicine; Visit Provider Internal Medicine Nephrology
DX: N18.5 Chronic kidney disease, stage 5 (principal); N25.0 Renal osteodystrophy
CPT/HCPCS: 36415; 80069; 81001; 82043; 82306; 82530; 82570; 83735; 83970; 84156; 85025

== ENCOUNTER 2025-04-29 08:06 | Outpatient (REF) | payer OTHER, SELFPAY ==
--- NOTE | ~2025-04-29 | US_ITS ---
EXAMINATION: MM DIAGNOSTIC DIGITAL BREAST TOMOSYNTHESIS, BILATERAL Right limited ultrasound. CLINICAL INFORMATION: Right breast palpable lump at 7:00. COMPARISON: Mammography: Comparison is made with relevant prior exams. TECHNIQUE: Digital breast mammography with tomosynthesis is performed in both the craniocaudal and mediolateral oblique views along with computer-aided detection (CAD). FINDINGS: There are scattered areas of fibroglandular density. Pacemaker overlies and obscures the superior posterior left breast on MLO view. There are no significant masses, abnormal calcifications, or other abnormalities. Targeted color Doppler ultrasound scanning in the right breast area of patient's palpable lump right lower outer quadrant and 7:00 demonstrates normal fibroglandular breast tissue. There is no sonographic abnormal finding. Results are provided to the patient at time of visit by the technologist. US/US Breast RT Limited Mamm Only IMPRESSION: Left: Negative. Right: No mammographic or sonographic abnormal finding to account for the patient's right breast palpable lump. Recommend clinical evaluation follow-up. ASSESSMENT: BI-RADS Category 2: Benign RECOMMENDATION: 1 year F/U This patient's information was entered into a reminder system with a target due date for their next mammogram. Electronically signed by: Aisha Gudino DO 04/29/2025 10:02 AM [facility]
--- OUTSIDE RECORDS SUMMARY | 2025-04-29 08:17 | XMS_ITS | Encounter Summary ---
Author Organization [facility] Address [address] [facility] [address]t [place] [address] Care Team Providers Care Signal Processing Engineer Name Role Phone Kianna Nunez MD Primary Care Provider [phone] Encounter Details Date Type Department Care Team (Late st Contact Info) Description 01/28/2025 Orders Only [place] [facility] [address] [place], [place] [phone] ProviderChacho MD Social History Tobacco Use Types [...] Description 06/29/2025 2:30 PM EST Office Visit [facility] OPTOMETRY [address] [place] [address] Jenni Morales, OD [address] [place] [address] 06/30/2025 8:45 AM EST Office Visit [facility] ADULT DENTAL [address] [place] [address] She, Caitlin [address] [place] [address] documented as of this encounter Procedures Procedure [...] AM EDT Narrative 02/26/2025 1:35 PM EDT [address] [address] Nuclear Medicine Report Signed Patient: Georgiana Earl MR#: [id number] 29 : 1955 Acct:[id number] Age/Sex: 69 / F ADM Date: 02/26/25 Loc: TERAJulianMILLIERICHARDSON Attending Dr: Paul Rose MD Ordering Physician: Paul Rose MD Date of Service: 02/26/25 Procedure(s): NM renal flow w pharm int Accession Number(s): [id number] cc: Paul Rose MD; Kianna Nunez MD [...] 02/26/25 1332 DD/ 1059 TD/TT: 02/26/25 1230 Hospital Food Service Worker: Procedure Note Donotuseinterpreter, Image - 02/26/[address] [address] Nuclear Medicine Report Signed Patient: Georgiana EarlMR#: [id number] 29 : 4Acct:[id number] Age/Sex: 69 / FADM Date: 02/26/25 Loc: NEELIMA Attending Dr: Paul Rose MD Ordering Physician: Paul Rose MD Date of Service: 02/26/25 Procedure(s): NM renal flow w pharm int Accession Number(s): [id number] cc: Paul Rose MD; Kianna Nunez MD [...] 02/26/2025 01:32 PM EDT RP Dictated By: Clayotn Mcdonald MD Signed By: <Electronically signed by Clayton Mcdonald MD in OV> 02/26/25 1332 DD/ 1059 TD/TT: 02/26/25 1230 Hospital Food Service Worker: [facility] External Provider IM NM PROCEDURES Final Result [...] as of this encounter Care Teams Signal Processing Engineer Relationship Specialty Start Date End Date Kianna Nunez MD [address] [place] [phone] PCP - General Family Medicine 02/02/20 Kleber Liu MD Passport Application Examiner 06/04/04 Anaya Parikh OD Optometry 04/09/24 Dorian Edouard Rfid Technician 06/04/04 [employer] Home Server Programmer 04/09/24 documented as of this encounter
--- OUTSIDE RECORDS SUMMARY | 2025-04-29 08:17 | XMS_ITS | Encounter Summary ---
Author Organization [facility] Address [address] 7t [place] [address] Care Team Providers Care Virtual Recruiter Name Role Phone Kianna Nunez MD Primary Care Provider [phone] Reason for Visit * Reason Comments Med Refill Encounter Details Date Type Department Care Team (Late st Contact Info) Description 02/20/2023 Refill [facility] MED [facility] PEDS [address] [place], [place] [phone] Kianna Nunez MD [address] [place], [place] [phone] Primary hypertension Social History Tobacco Use Types [...] Description 06/29/2025 2:30 PM EST Office Visit [facility] OPTOMETRY [address] [place], [place] [phone] Jenni Morales, OD [address] [place], [place] [phone] 06/30/2025 8:45 AM EST Office Visit [facility] ADULT DENTAL [address] [place], [place] [phone] Caitlin Nowak [address] [place], [place] [phone] documented as of this encounter Visit Diagnoses Diagnosis Primary hypertension Unspecified essential hypertension documented in this encounter Care Teams Virtual Recruiter Relationship Specialty Start Date End Date Kianna Nunez MD [address] [place] [address] PCP - General Family Medicine 02/02/20 Kleber Liu MD Product Safety Compliance Leader 06/04/04 Anaya Parikh OD Optometry 04/09/24 Dorian Edouard Electrical Power Engineer 06/04/04 [facility] [facility] Floor Sanding Machine Operator 04/09/24 documented as of this encounter
--- OUTSIDE RECORDS SUMMARY | 2025-04-29 08:17 | XMS_ITS | Encounter Summary ---
Author Organization [employer] Address [address] [facility] 7t [place] [address] Care Team Providers Care Plant Security Guard Name Role Phone Kianna Nunez MD Primary Care Provider [phone] Encounter Details Date Type Department Care Team (Late Contact Info) Description 08/31/2022 Orders Only [facility] MED & PEDS [address] [place], [place] [phone] Timothy Ibrahim MD [address] [place] [address] Social History Tobacco Use Types Packs/Day Years [...] 2:30 PM EST Office Visit [facility] OPTOMETRY [address] [place], [place] [phone] TarkaJenni, OD [address] [place] [address] 06/30/2025 8:45 AM EST Office Visit [facility] ADULT DENTAL [address] [place] [address] Caitlin Nowak [address] [place] [address] documented as of this encounter Procedures Procedure Name Priority Date/Time Associated Diagnosis Comments CULTURE, URINE, ROUTINE Routine 01/05/2023 10:30 AM EDT documented in this encounter Results * Culture, Urine, Routine (01/05/2023 10:30 AM EDT) Urine specimen obtained by clean catch procedure / Unknown 01/05/2023 10:30 AM EDT 01/05/2023 2:58 PM EDT Comment:[facility] - 01/07/2023 7:34 AM EDT Escherichia coli Quant > 100,000 cfu/mL Escherichia coli: Ampicillin >=32(R) Escherichia coli: Ceftriaxone <=0.25(S) Escherichia coli: Gentamicin <=1(S) Escherichia coli: Levofloxacin >=8(R) Escherichia coli: Nitrofurantoin <=16(S) Escherichia coli: Trimethoprim/Sulfamethoxazole <=20(S) Specimen Source: Urine clean catch us Kianna Nunez MD LAB MICROBIOLOGY - GENERAL OR DERABLES Final Result Performing Organization Address City/State/[facility] Co de Phone Number [facility] [address] [place] [phone] documented in this encounter Visit Diagnoses Not on filedocumented in this encounter Care Teams Plant Security Guard Relationship Specialty Start Date End Date Kianna Nunez MD [address] [place] [address] PCP - General Family Medicine 02/02/20 Kleber Liu MD Barrel Stave Inspector 06/04/04 Anaya Parikh OD Optometry 04/09/24 Dorian Edouard Review Consultant 06/04/04 [employer] [facility] Factory Maintenance Manager 04/09/24 documented as of this encounter
--- OUTSIDE RECORDS SUMMARY | 2025-04-29 08:17 | XMS_ITS | Encounter Summary ---
Author Organization [employer] Address [address] [place] [address] Care Team Providers Care Slubber Hand Name Role Phone Kianna Nunez MD Primary Care Provider [phone] Reason for Visit * Reason Onset Date Comments restrictions for grand daughter 12/30/2024 Encounter Details Date Type Department Care Team ([facility] st Contact Info) Description 12/30/2024 Telephone [facility] MEDICINE [address] [place] [address] Kianna Nunez MD [address] [place], [place] [phone] restrictions for grand daughter Social History Tobacco [...] permission and then telling her daughters in [place] that she is not coming to her appts. Upon review of patient chart, her appt on 01/05 has not been cancelled. However she states that her grand daughter Mendy Nye has cancelled appts in the past.She says she needs to keep this appt because her daughters are comin gin from [place] to meet her PCP and discuss medical concerns. She does not want her grand daughter Mendy Nye to have access toher information DR documented in this encounter Plan of Treatment Upcoming Encounters Date Type Department Care Team (Late st Contact Info) Description 06/29/2025 2:30 PM EST Office Visit [facility] OPTOMETRY [address] [place] [address] Jenni Morales, OD [address] [place] [address] 06/30/2025 8:45 AM EST Office Visit [facility] ADULT DENTAL [address] [place] [address] Caitlin Nowak [address] [place] [address] documented as of this encounter Visit Diagnoses Not on filedocumented in this encounter Additional Health Concerns Assessment Noted Time PHQ-9 Depression Total Score: 7 12/20/19 25 9:35 AM EDT documented as of this encounter Care Teams Slubber Hand Relationship Specialty Start Date End Date Kianna Nunez MD [address] [place] [address] PCP - General Family Medicine 02/02/20 Kleber Liu MD Violin Restorer 06/04/04 Anaya Parikh OD Optometry 04/09/24 Dorian Edouard Semiconductors Wafer Breaker 06/04/04 [facility] Ehs Specialist 04/09/24 documented as of this encounter
--- OUTSIDE RECORDS SUMMARY | 2025-04-29 08:17 | XMS_ITS | Encounter Summary ---
Author Organization [employer] Address [address] [place] [address] Care Team Providers Care Greenskeeper Name Role Phone Kianna Nunez MD Primary Care Provider [phone] Reason for Visit * Reason Onset Date Comments call back needed 02/20/2025 Encounter Details Date Type Department Care Team ([facility] st Contact Info) Description 02/20/2025 Telephone [facility] MEDICINE [address] [place] [address] Kianna Nunez MD [address] [place], [place] [phone] call back needed Social History Tobacco Use [...] - 02/20/2025 4:50 PM EDT TC from [place] [facility] requesting a call back due to questions [...] Description 06/29/2025 2:30 PM EST Office Visit [facility] OPTOMETRY [address] [place] [address] TarkaJenni, OD [address] [place] [address] 06/30/2025 8:45 AM EST Office Visit [facility] ADULT DENTAL [address] [place] [address] Caitlin Nowak [address] [place] [address] documented as of this encounter Visit Diagnoses Not on filedocumented in this encounter Additional Health Concerns Assessment Noted Time PHQ-9 Depression Total Score: 7 12/20/19 25 9:35 AM EDT documented as of this encounter Care Teams Greenskeeper Relationship Specialty Start Date End Date Kianna Nunez MD [address] [place] [address] PCP - General Family Medicine 02/02/20 Kleber Liu MD Industrial Mechanic 06/04/04 Anaya Parikh OD Optometry 04/09/24 Dorian Edouard Allied Health Teacher 06/04/04 [employer] [facility] Sprinkling System Irrigator 04/09/24 documented as of this encounter
--- OUTSIDE RECORDS SUMMARY | 2025-04-29 08:17 | XMS_ITS | Clinical Summary ---
Author Organization [facility] Address [address] [place] [address] Phone Care Team Providers Care Night Time Babysitter Name Role Phone Kianna Nunez MD Primary Care Provider [phone] Encounters Date Type Department Care Team Description 01/27/2025 10:45 AM EDT - 01/27/2025 11:59 PM EDT Hospital Encounter [facility] PET Scan [address] [place] [address] Other nonspecific abnormal finding of [...] Signed Date: 01/28/2025 12:32 ET Workstation ID: [id number] Transcribed By: Self Edit Transcribed Date: 01/28/2025 [...] Signed Date: 01/28/2025 12:32 ET Workstation ID: [id number] Transcribed By: Self Edit Transcribed Date: 01/28/2025 12:23 ET Paul Andre MD IM NM PROCEDURES Final Result from [place] [address] [place] [id number] [facility] Care Teams Night Time Babysitter Relationship Specialty Start Date End Date Kianna Nunez MD [address] [place] [phone] PCP - General 08/27/23
--- OUTSIDE RECORDS SUMMARY | 2025-04-29 08:17 | XMS_ITS | Encounter Summary ---
Author Organization [employer] Address [address] [place] [address] Care Team Providers Care Disc Sander Name Role Phone Kianna Nunez MD Primary Care Provider Reason for Visit * Reason Onset Date Comments Nurse Triage 01/08/2024 Encounter Details Date Type Department Care Team ([facility] st Contact Info) Description 01/08/2024 Telephone [facility] MEDICINE [address] [place] [address] Kianna Nunez MD [address] [place], [place] [phone] Nurse Triage Social History Tobacco Use Types [...] with others, in a hotel, in a retirement, living outside on the street, on a [...] to speak for Pt. Pt only speaks citizen of [place]. Pt has been having some rectal bleeding [...] 01/08/2024 2:20 PM EDT Triage call with [place] [place] [id number]. Call to [phone] unable to get connection, callto [phone] unable to get connection. * Telephone Encounter - Ruba Hinson - 01/08/2024 2:09 PM EDT Symptoms: Body Aches, Urination Pain Outcome: Schedule an urgent appointment (within 1 hour) or talk to a nurse or provider soon Reason: Severe pain now The caller accepted this outcome Please contact at [phone] documented in this encounter Plan of Treatment Upcoming Encounters Date Type Department Care Team (Late st Contact Info) Description 06/29/2025 2:30 PM EST Office Visit [facility] OPTOMETRY [address] [place] [address] Tarsukhi Jenni, OD [address] [place] [address] 06/30/2025 8:45 AM EST Office Visit [facility] ADULT DENTAL [address] [place] [address] She, Caitlin [address] [place] [address] documented as of this encounter Visit Diagnoses Not on filedocumented in this encounter Additional Health Concerns Assessment Noted Time PHQ-9 Depression Total Score: 0 05/01/20 23 2:20 PM EST documented as of this encounter Care Teams Disc Sander Relationship Specialty Start Date End Date Kianna Nunez MD [address] [place] [address] PCP - General Family Medicine 02/02/20 Kleber Liu MD Online Advertising Director 06/04/04 Anaya Parikh OD Optometry 04/09/24 Dorian Edouard Bliss Press Operator 06/04/04 [employer] [facility] Ditching Machine Operator 04/09/24 documented as of this encounter
--- OUTSIDE RECORDS SUMMARY | 2025-04-29 08:17 | XMS_ITS | Clinical Summary ---
Author Organization [employer] Address [address] [facility] [address] [place] [address] Care Team Providers Care Trestle Mainternance Laborer Name Role Phone Kianna Nunez MD Primary Care Provider [phone] Allergies Active Allergy Reactions Criticality Noted Date [...] FOR 2 DAYS 02/06/20 25 Active PEG 9999-CXd-LjRhk-Na Cl-NaSulf (PEG-3350/Electro lytes) 236 g reconstituted solution [...] referred for therapy and information given to granddaughter/FORKLIFT OPERATOR. Assessment & Plan (04/09/2024 11:16 AM [...] and I will also send her to manager department. Labs: CBC, Comprehensive Metabolic Panel, Lipid panel, [...] is to refer patientfor OP individual therapy. [facility] crisis line number provided. At [...] for her to decrease symptoms c. Contact [facility] crisis line if needed (information [...] is to refer patientfor OP individual therapy. [facility] crisis line number provided. At [...] for her to decrease symptoms c. Contact [facility] crisis line if needed (information [...] BP medication when she gets back to [place] today. -Seek medical attention if she has [...] DEPARTMENT Provider, Generic External Data 04/09/2025 Telephone [facility] [address] [place] [address] Gisele Salamanca, NETTA Care Coordination 04/07/2025 3:00 PM EST Clinical Support [facility] [address] [place] [address] Concepcion Noyola, NETTA Primary hypertension [I10] 04/07/2025 Telephone [facility] [address] [place] [address] Neetu Goodwin RN 04/07/2025 Travel 04/06/2025 Refill [facility] [address] [place] [address] Kianna Nunez MD Painful spasm of anus 04/03/[address] Telephone Call 03/30/2025 10:00 AM EDT Office Visit [facility] [address] [place] [address] Kianna Nunez MD Primary hypertension (Primary Dx); Pain; Encounter for immunization; Encounter for vaccination 03/30/2025 Travel 03/27/2025 Telephone [facility] [address] [place] [address] Kianna Nunez MD Chart Prep 03/23/2025 Orders Only GENERIC EXTERNAL DATA DEPARTMENT Provider, Generic External Data 03/11/[address] [address] Kianna Nunez MD 03/08/2025 Refill [facility] [address] [place], [place] [phone] Lara Alanis MD Anxiety; Chronic heart failure, unspecified heart failure type (HCC) 02/27/2025 Telephone [facility] [address] [place] [address] Nutrition referral 02/20/2025 Telephone [facility] [address] [place] [address] Kianna Nunez MD call back needed 02/10/2025 Telephone [facility] [address] [place] [address] Kianna Nunez MD US BREAST ORDER 02/05/2025 Refill [facility] [address] [place], [place] [phone] Kianna Nunez MD 02/03/2025 Refill [facility] [address] [place], [place] [phone] Lara Alanis MD Failure to thrive in adult 01/28/2025 Orders Only [facility] [address] [place] [address] Chacho Romero MD 01/27/2025 Telephone [facility] [address] [place] [address] Kianna Nunez MD from Last 3 Months [...] the past 12 months, has t he [email or web address], gas, oil or water [employer] threatened to shut off services in your [...] Description 06/29/2025 2:30 PM EST Office Visit [facility] [address] [place] [address] Jenni Morales, OD [address] [place] [address] 06/30/2025 8:45 AM EST Office Visit [facility] [address] [place] [address] She, Caitlin [address] [place] [address] Health Maintenance Due Date Last Done Comments [...] included. Sodium 144 135 - 145 mmol/L [facility] Potassium 3.9 3.3 - 5.1 mmol/L [facility] Chloride 111(H) 96 - 108 mmol/L [facility] Carbon Dioxide 24 22 - 29 mmol/L [facility] Anion Gap 13 12 - 20 [facility] Urea Nitrogen (BUN) 46(H) 9 - 16 mg/dL [facility] Creatinine, Serum 2.96(H) 0.5 - 1.4 mg/dL [facility] Estimated Glomerular Filt Rate 16 [facility] Comment:Chronic Kidney Disea se: Estimated GFR < 60 mL/min/1.78o1Axbcne Kidney Disease: Estimated GFR < 15 mL/min/1.73m2 Glucose 116(H) 60 - 115 mg/dL [facility] Calcium 9.3 8.4 - 10.2 mg/dL [facility] 04/23/2025 8:24 AM EST 04/23/2025 11:10 AM EST us Generic External Data Provider LAB BLOOD ORDERAB LES Final Result [facility] [address] [place] [phone] * CT Chest w/o Contrast (04/17/2025 8:03 AM EST) Anatomical Region Laterality Modality Body, Chest Computed Tomogra phy 04/17/2025 8:03 AM EST Narrative 04/17/2025 8:[address] [address] [address] Scan Report Signed Patient: Georgiana Earl MR#: [id number] 29 : 1955 Acct:[id number] Age/Sex: 70 / F ADM Date: 04/17/25 Loc: HO.CT Attending Dr: Paul Andre MD Ordering Physician: Paul Andre MD Date of Service: 04/17/25 Procedure(s): CT chest wo IV con Accession Number(s): [id number] cc: Paul Andre MD; Kianna Nunez MD Report Number: [id number]: Total DLP = 82.00 mGy-cm Reason for [...] iterative reconstruction technique DLP: 82 mGy-cm FINDINGS: FULL ROLL INSPECTOR: Cardiomediastinal silhouette appears prominent to the left [...] 04/17/25 0846 DD/ 0803 TD/TT: 04/17/25 0831 [facility] Teacher: Procedure Note Donotuseinterpreter, Image - 04/17/[address] [address] [address] Scan Report Signed Patient: Desirae Earl#: [id number] 29 : 4Acct:[id number] Age/Sex: 70 / FADM Date: 04/17/25 Loc: HO.CT Attending Dr: Paul Andre MD Ordering Physician: Paul Andre MD Date of Service: 04/17/25 Procedure(s): CT chest wo IV con Accession Number(s): [id number] cc: Paul Andre MD; Kianna Nunez MD Report Number: [id number]: Total DLP = 82.00 mGy-cm Reason for [...] iterative reconstruction technique DLP: 82 mGy-cm FINDINGS: FULL ROLL INSPECTOR: Cardiomediastinal silhouette appears prominent to the left [...] 04/17/25 0846 DD/ 0803 TD/TT: 04/17/25 0831 [facility] Teacher: [facility] External Provider IMG CT PROCEDURES Final Result * Dexamethasone (03/23/2025 8:14 AM EDT) Dexamethasone <20 ng/dL [facility] Comment:Reference Ranges for Dexamethasone:Baseline: Less than 20 ng/dL1 mg dexamethasone overnight: 180-550 ng/dL (8:00-10:00 AM)This test was developed and its analytical performancecharacteristics have been determined by [employer].It has not been cleared or approved by the FDA. This assayhas been validated pursuant to the CLIA regulations and isused for clinical purposes.THIS TEST WAS PERFORMED AT:[employer] [id number] [place] [address]QRFMGLOGAN BOLANOS MD,PHD,WENDY 03/23/2025 8:14 AM EDT 03/23/2025 11:27 AM EDT us Generic External Data Provider LAB BLOOD ORDERAB LES Final Result [facility] [address] [place] [phone] [phone] * (ABNORMAL) Metanephrines, Fractionated, Free, LC/MS/MS, Plasma (03/23/2025 8:14 AM EDT) Metanephrine, Free 59(A) <=57 pg/mL [facility] Comment:This test was develo ped and its analytical performancecharacteristics have been determined by [employer], [place]. It hasnot been cleared or approved by the U.S. Food and DrugAdministration. This assay has been validated pursuantto the CLIA regulations and is used for clinicalpurposes. Normetanephrine, Free 383(A) <=148 pg/mL [facility] Comment:This test was develo ped and its analytical performancecharacteristics have been determined by [employer], [place]. It hasnot been cleared or approved by the U.S. Food and DrugAdministration. This assay has been validated pursuantto the CLIA regulations and is used for clinicalpurposes. Total, Free (MN+NMN) 442(A) <=205 pg/mL [facility] Comment: For additional information, please refer tohttp://education.[employer]/faq/[employer](This link is being provided for informational/educatioinformational/educational purposes [...] its analytical performancecharacteristics have been determined by [place]. It hasnot been cleared or approved by the U.S. Food and DrugAdministration. This assay has been validated pursuantto the CLIA regulations and is used for clinicalpurposes.THIS TEST WAS PERFORMED AT:[employer] [id number] [place] [address]DECBBSHSOUMYA CHRISTOPHER MD,PHD 03/23/2025 8:14 AM EDT 03/23/2025 11:01 AM EDT Generic External Data Provider LAB BLOOD ORDERAB LES Final Result Performing Organization Address [facility] Co de Phone Number [facility] [address] [place] [phone] * Cortisol Random (03/23/2025 8:14 AM EDT) [facility] Cortisol Random 17.0 ug/dL [facility] Comment:Reference Range*: Be fore 10 am 6.2-19.4 ug/dL After 5 pm 2.3-11.9 ug/dL*Please interpret above results accordingly.This test was performed using the [employer] chemiluminescentmethod. Values obtained from different assay methods cannotbe used interchangeably.Patients receiving fludrocortisone, prednisolone orprednisone may show artificially elevated cortisol valuesdue to cross-reactivity. 03/23/2025 8:14 AM EDT 03/23/2025 11:01 AM EDT Generic External Data Provider LAB BLOOD ORDERAB LES Final Result Performing Organization Address [facility]/ZIP Co de Phone Number [facility] [address] [place] [phone] * Vitamin B12 (Cobalamin) and Folate Panel, Serum (03/23/2025 8:14 AM EDT) Pathologist [facility] Vitamin B12 307 200 - 900 pg/mL [facility] Comment:NORMAL 200-900 PG/ML INDETERMINATE 160-199 PG/ML DEFICIENT < 160 PG/ML Folate 13.0 > or = 4.0 ng/mL [facility] Comment:Reference Values:> o r = 4.0 ng/mL< 4.0 ng/mL suggests folate deficiency Methotrexate, aminopterin and folinic acid(leucovorin) are chemotherapeutic agents whose molecularstructures are similar to folate; therefore, the Architectfolate assay cannot be used for patients using these drugs. 03/23/2025 8:14 AM EDT 03/23/2025 11:05 AM EDT Kianna Nunez MD LAB BLOOD ORDERABLES Final Re sult Performing Organization Address [facility]/ZIP Co de Phone Number [facility] [address] [place] [phone] * TSH with Reflex to Free T4 (03/23/2025 8:14 AM EDT) Pathologist [facility] TSH reflex Free T4 1.78 0.32 - 4.0 uIU/mL [facility] 03/23/2025 8:14 AM EDT 03/23/2025 11:01 AM EDT Kianna Nunez MD LAB BLOOD ORDERABLES Final Re sult Performing Organization Address City/[facility]/ZIP Co de Phone Number [facility] [address] [place] [phone] * HIV-1/2 Antigen and Antibodies, Fourth Generation, with Reflexes (03/23/2025 8:14 AM EDT) Pathologist [facility] HIV AB/AG Nonreactive Nonreactive [facility] Comment:HIV-1 p24 Ag and/or HIV-1/HIV-2 Ab not detected.A test result that is nonreactive does not exclude thepossibility of exposure to or infection with HIV-1 and/orHIV-2. Nonreactive results in this assay for individualswith prior exposure to HIV-1 and/or HIV-2 may be due toantigen and antibody levels that are below the limit ofdetection of this assay.The [employer] HIV Ag/Ab Combo assay result andsupplemental assay results should be interpreted inconjunction with the patient's clinical presentation,history and other laboratory results. If the results areinconsistent with clinical evidence, additional testing issuggested to confirm the result. Blood Venous blood specimen / Unknown 03/23/2025 8:14 AM EDT 03/23/2025 11:01 AM EDT us Kianna Nunez MD LAB BLOOD ORDERABLES Final Re sult Performing Organization Address City/State/[facility] Co de Phone Number [facility] [address] [place] [phone] * NM Kidney Flow/Function w/ Pharmacological Intervention (02/26/2025 10:59 AM EDT) Anatomical Region Laterality Modality Body Nuclear Medicine 02/26/2025 10:5 9 AM EDT Narrative 02/26/2025 1:35 PM EDT [address] [address] Nuclear Medicine Report Signed Patient: Georgiana Earl MR#: [id number] 29 : 1955 Acct:[id number] Age/Sex: 69 / F ADM Date: 02/26/25 Loc: [facility] Attending Dr: Paul Rose MD Ordering Physician: Paul Rose MD Date of Service: 02/26/25 Procedure(s): NM renal flow w pharm int Accession Number(s): [id number] cc: Paul Rose MD; Kianna Nunez MD [...] 1332 DD/ 1059 TD/TT: 02/26/25 1230 [facility] Teacher: Procedure Note Donotuseinterpreter, Image - 02/26/2025 [place] [address] Nuclear Medicine Report Signed Patient: Georgiana Earl#: [id number] 29 : 1955cct:[id number] Age/Sex: 69 / FADM Date: 02/26/25 Loc: [facility] Attending Dr: Paul Rose MD Ordering Physician: Paul Rose MD Date of Service: 02/26/25 Procedure(s): NM renal flow w pharm int Accession Number(s): [id number] cc: Paul Rose MD; Kianna Nunez MD [...] 1332 DD/ 1059 TD/TT: 02/26/25 1230 Hospital [facility] Assist[facility] Teacher: [facility] External Provider IMG NM PROCEDURES Final Result * PET/CT Bone Skull Base to Mid Thigh (01/27/2025 3:26 PM EDT) Anatomical Region Laterality Modality Body Computed Tomogra phy Historical Provider MD NAIDU CT PROCEDURES Final R esult * Lipid Panel, Standard (12/31/2024 11:02 AM EDT) Triglycerides 71 <150 mg/dL [facility] Comment:Desirable Triglyceri de: less than 150 mg/dLBorderline High Triglyceride 150-199 mg/dLHigh Triglyceride: 200-499 mg/dLVery High Triglyceride: greater than or equal to 5OO mg/dL Cholesterol 147 <200 mg/dL [facility] Comment:Desirable Cholestero l: less than 200 mg/dLBorderline High Cholesterol: 200-239 mg/dLHigh Cholesterol: greater than 239 mg/dL LDL Cholesterol Calculated 64 <100 mg/dL [facility] Comment:Desirable LDL: less than 100 mg/dLNear Optimal/Above Optimal LDL: 110- 129 mg/dLBorderline High LDL: 130-159 mg/dLHigh LDL: 160-189 mg/dLVery High LDL: greater than or equal to 190 mg/dL HDL Cholesterol 69 >40 mg/dL [facility] Comment:Desirable HDL: great er than 40 mg/dL Note: This HDL assay may give artificially low results in patients with liver disease. Blood Venous blood specimen / Unknown 12/31/2024 11:02 AM EDT 12/31/2024 1:19 PM EDT Kianna Nunez MD LAB BLOOD ORDERABLES Final Re sult Performing Organization Address [facility] Co de Phone Number [facility] [address] [place] [phone] * Hepatitis C Antibody with Reflex to HCV, RNA, Quantitative, Real-Time PCR (05/09/2024 2:01 PM EST) Hepatitis C Antibody Nonreactive Nonreactive [facility] Comment:Antibodies to HCV no t detected; does not exclude early acuteHCV infection. Blood Venous blood specimen / Unknown 05/09/2024 2:01 PM EST 05/09/2024 3:54 PM EST Kianna Nunez MD LAB BLOOD ORDERABLES Final Re sult Performing Organization Address [facility] Co de Phone Number [facility] [address] [place] [phone] * DIGITAL BILATERAL SCREEN 1 (01/10/2019 1:40 PM EDT) Anatomical Region Laterality Modality Breast Bilateral Mammography 01/10/2019 1:40 PM EDT Narrative 01/10/2019 1:43 PM EDT Refer to the Notes tab for result details [facility] Procedure: DIGITAL BILATERAL SCREEN 1 Procedure Note Provider, MD Chacho - 08/26/2022 Refer to the Notes tab for result details [facility] Procedure: DIGITAL BILATERAL SCREEN 1 Jose Syed BUSINESS PROCESS MANAGER IMG BI PROCEDURES Final Result from Last 3 Months or Most Recently Relevant to Health Maintenance [facility] [address] [place] [address] [phone] [address] [place] [phone] Care Teams Trestle Mainternance Laborer Relationship Specialty Start Date End Date Kianna Nunez MD [address] [place] [address] PCP - General Family Medicine 02/02/20 Kleber Liu MD Coagulating Bath Mixer 06/04/04 Anaya Parikh OD Optometry 04/09/24 Dorian Edouard Career Development Engineer 06/04/04 [facility] Master Automotive Glass Technician 04/09/24
--- OUTSIDE RECORDS SUMMARY | 2025-04-29 08:17 | XMS_ITS | Encounter Summary ---
Author Organization [employer] Address [address] [place] [address] Care Team Providers Care Financial Analysis Manager Name Role Phone Kianna Nunez MD Primary Care Provider [phone] Reason for Visit * Reason Comments Med Refill Encounter Details Date Type Department Care Team ([facility] st Contact Info) Description 09/24/2024 Refill [facility] [address] [place] [address] Kianna Nunez MD [address] [place] [address] Pain Social History Tobacco Use Types Packs/Day [...] Description 06/29/2025 2:30 PM EST Office Visit [facility] [address] [place] [address] Jenni Morales OD [address] [place] [address] 06/30/2025 8:45 AM EST Office Visit [facility] [address] [place] [address] She, Caitlin [address] [place] [address] documented as of this encounter Visit Diagnoses Diagnosis Pain Generalized pain documented in this encounter Additional Health Concerns Assessment Noted Time PHQ-9 Depression Total Score: 18 024 10:34 AM EST documented as of this encounter Care Teams Financial Analysis Manager Relationship Specialty Start Date End Date Kianna Nunez MD [address] [place] [address] PCP - General Family Medicine 02/02/20 Kleber Liu MD Welfare Director 06/04/04 Anaya Parikh OD Optometry 04/09/24 Dorian Edouard Marketing Education Teacher 06/04/04 [facility] Structural Steel Erection Supervisor 04/09/24 documented as of this encounter
--- OUTSIDE RECORDS SUMMARY | 2025-04-29 08:17 | XMS_ITS | Encounter Summary ---
Author Organization [employer] [facility] Address [address] [place] [address] Care Team Providers Care Waiter/Waitress Buffet Name Role Phone Kianna Nunez MD Primary Care Provider [phone] Encounter Details Date Type Department Care Team (Late st Contact Info) Description 04/07/2025 Telephone [facility] [address] [place] [address] Neetu Goodwin, RN [address] [place] [address] Social History Tobacco Use Types Packs/Day Years [...] 06/29/2025 2:30 PM EST Office Visit [facility] [address] [place] [address] Jenni Morales, OD [address] [place] [address] 06/30/2025 8:45 AM EST Office Visit [facility] [address] [place] [address] She, Caitlin [address] [place] [address] documented as of this encounter Visit Diagnoses Not on filedocumented in this encounter Additional Health Concerns Assessment Noted Time PHQ-9 Depression Total Score: 7 12/20/19 25 9:35 AM EDT documented as of this encounter Care Teams Waiter/Waitress Buffet Relationship Specialty Start Date End Date Kianna Nunez MD [address] [place] [address] PCP - General Family Medicine 02/02/20 Kleber Liu MD Transition Nurse 06/04/04 Anaya Parikh OD Optometry 04/09/24 Dorian Edouard Car Inspector 06/04/04 [facility] Filler Feeder 04/09/24 documented as of this encounter
--- OUTSIDE RECORDS SUMMARY | 2025-04-29 08:17 | XMS_ITS | Encounter Summary ---
Author Organization [facility] [facility] Address [address] [place] [address] Care Team Providers Care Electrical Engineering Manager Name Role Phone Kianna Nunez MD Primary Care Provider [phone] Reason for Visit * Reason Onset Date Comments insurance update 10/05/2022 Appointment 10/05/2022 Encounter Details Date Type Department Care Team (Late st Contact Info) Description 10/05/2022 Telephone [facility] [address] [place] [address] Felisha Burkett DDS insurance update; Appointment Social [...] insurance coverage. She does have coverage through [facility] benefit providers. The id number for the dental portion would be [id number]. Please update insurance info and contact patient for rescheduling DR documented in this encounter Plan of Treatment Upcoming Encounters Date Type Department Care Team (Late st Contact Info) Description 06/29/2025 2:30 PM EST Office Visit [facility] [address] [place], [place] [phone] Starsukhi Jenni, OD [address] [place] [address] 06/30/2025 8:45 AM EST Office Visit [facility] [address] [place] [address] She, Caitlin [address] [place] [address] documented as of this encounter Visit Diagnoses Not on filedocumented in this encounter Care Teams Electrical Engineering Manager Relationship Specialty Start Date End Date Kianna Nunez MD [address] [place] [address] PCP - General Family Medicine 02/02/20 Kleber Liu MD Ent Consultant 06/04/04 Anaya Parikh OD Optometry 04/09/24 Dorian Edouard Thermostatic Controls Supervisor 06/04/04 [facility] Door Furring Installer 04/09/24 documented as of this encounter
--- OUTSIDE RECORDS SUMMARY | 2025-04-29 08:17 | XMS_ITS | Encounter Summary ---
Author Organization [employer] Address [address] [place] [address] Care Team Providers Care Lift Truck Mechanic Name Role Phone Kianna Nunez MD Primary Care Provider [phone] Reason for Visit * Reason Onset Date Comments Pre-op Exam 11/15/2023 Encounter Details Date Type Department Care Team ([facility] st Contact Info) Description 11/15/2023 Telephone [facility] [address] [place] [address] Kianna Nunez MD [address] [place] [address] Pre-op Exam Social History Tobacco Use Types [...] no Surgeon's name: Dr. Agustin Facility name: [facility] Surgeon's office number: [phone] Surgeon's office fax number: [phone] Contact name (person you spoke with): Kelli Last office note from surgeon requested: Pre-Op notes documented in this encounter Plan of Treatment Upcoming Encounters Date Type Department Care Team (Late st Contact Info) Description 06/29/2025 2:30 PM EST Office Visit [facility] OPT[facility] [address] [place] [address] StarkaJenni, OD [address] [place] [address] 06/30/2025 8:45 AM EST Office Visit [facility] ADULT [facility] [address] [place] [address] She, Caitlin [address] [place] [address] documented as of this encounter Visit Diagnoses Not on filedocumented in this encounter Additional Health Concerns Assessment Noted Time PHQ-9 Depression Total Score: 0 05/01/20 23 2:20 PM EST documented as of this encounter Care Teams Lift Truck Mechanic Relationship Specialty Start Date End Date Kianna Nunez MD [address] [place] [address] PCP - General Family Medicine 02/02/20 Kleber Liu MD Diamond Expert 06/04/04 Anaya Parikh OD Optometry 04/09/24 Dorian Edouard Head Of Stock 06/04/04 [facility] Pigskin Trimmer 04/09/24 documented as of this encounter
--- NOTE | 2025-05-11 19:57 | P.PNNP_ITS ---
Subjective Subjective Date of Service: 05/11/25 Principal diagnosis: CKD 5 Interval history: BOO hood seen by me today re: adv CKD PT is 100% clear that she wants me to be her Supervisor [employer] Hanging and she is not sure why she was sent to another Supervisor [employer]anging. Full note form todays vsiit avail and if you have any question feel free to contact me via TText and or my office Procedures Date of Service Date of Service: 05/11/25 Assessment & Plan Time Spent With Patient Time: Total time managing care of this patient today ____ minutes.
--- NOTE | 2025-05-11 20:02 | PM.PNNEP ---
Subjective Subjective Date of Service: 05/11/25 Principal diagnosis: CKD 5 Interval history: BOO hood seen by me today re: adv CKD PT is 100% clear that she wants me to be her Harvest Supervisor and she is not sure why she was sent to another Harvest Supervisor. Full note form todays vsiit avail and if you have any question feel free to contact me via TText and or my office Procedures Date of Service Date of Service: 05/11/25 Assessment & Plan Assessment and plan (1) Anemia in CKD (chronic kidney disease): Status: Acute (2) Chronic kidney disease: Status: Acute Time Spent With Patient Time: Total time managing care of this patient today ____ minutes.
== END 2025-04-29 08:07 | disposition home or self-care (01) ==
LOC: HO.MAMMO 08:06
PROVIDERS: PCP Family Medicine; Visit Provider Family Medicine
DX: N63.13 Unspecified lump in the right breast, lower outer quadrant (principal)
CPT/HCPCS: 76642; 77062; 77066

== ENCOUNTER → 2025-04-29 08:30 | Outpatient (BNV) | payer OTHER, SELFPAY | PROVIDERS: PCP Family Medicine; Visit Provider Internal Medicine | DX: N63.13 Unspecified lump in the right breast, lower outer quadrant (principal) | CPT/HCPCS: 76642; 77066; G0279 ==

== ENCOUNTER 2025-05-15 09:54 | Outpatient (AMB) | payer OTHER, SELFPAY ==
--- NOTE | 2025-05-15 10:24 | A.OFFVIS_ITS ---
Vital Signs 05/15/25 10:29 Height 5 ft 4 in Weight 105 lb 6.095 oz BMI 18.1 BP 137/80 Blood Pressure Location Rt brachial Position Sitting Pulse 89 Intake Visit Reasons: Follow up cologuard Intake Note: Georgiana presents in follow up for cologuard results. CC: Patient c/o rectal pain and pressure, constipation, blood from hemorrhoids, and heartburn. 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 In the interim she is experiencing increased trouble with hemorrhoids without noting any associated constipation. She has never used any prescription treatments for this so I suggest we do a trial of Proctosol cream and then re-evaluate her before considering something like surgery. Return office visit in 6 weeks Medications: New hydrocortisone 2.5% (Proctosol HC) BE SURE TO INCLUDE RECTAL APPICATOR!! 1 appl NM BID 30 grams 6RF hemorrhoids K64.9 - Unspecified hemorrhoids COLOGUARD: 04/06/2025- COLOGUARD REPEAT IN 3 YEARS TODAY'S VISIT [facility] Medical History Anemia Pre-op examination Colon cancer screening Acute pyelonephritis E coli bacteremia Rectal candidiasis Urinary tract infection UTI (urinary tract infection) Cocaine use disorder Cocaine use disorder in remission MDD (major depressive disorder), recurrent severe, without psychosis Hx of sepsis History of asthma Hyperlipidemia HTN (hypertension) Cardiomyopathy ICD (implantable cardioverter-defibrillator) in place CAD (coronary artery disease) Chronic heart failure with reduced ejection fraction and diastolic dysfunction GERD (gastroesophageal reflux disease) Surgical History History of surgery Hx of cystoscopy H/O hemorrhoidectomy Stented coronary artery Hx of colonoscopy Family History Father Diabetes HTN (hypertension) Mother Diabetes HTN (hypertension) Sister Throat cancer Family/Other Colon cancer Social History Household Members: None Housing: Apartment Are you a primary healthcare marketer to a significant other at home: No Do you presently have visiting nurse or other home services: No Alcohol intake: never Comment: sleeping Patient Tobacco Use Status: Current everyday Tobacco user Tobacco use type: Cigarette Cigarette Packs Per Day: 2 Cigarettes Per Day: 40.0 Years Smoked: 38 e-Cigarette/Vaping Use: Never Used Second Hand Smoke Exposure: Yes Substance Use Type: Marijuana Advance Directives Date on File: 04/26/21 service: No Current occupational status: unemployed and disabled Sexual orientation: Straight/Heterosexual Physical Exam Vital Signs: Last Vital Signs Pulse 89 05/15/25 10:29 BP 137/80 05/15/25 10:29 BMI result Body Mass Index 18.1 Assessment & Plan Assessment & Plan (1) Encounter for colorectal cancer screening using Cologuard test: Comment: 04/06/2025- COLOGUARD REPEAT IN 3 YEARS Code(s): Z12.11 - Encounter for screening for malignant neoplasm of colon; Z12.12 - Encounter for screening for malignant neoplasm of rectum Category: Medical (2) Hemorrhoids: Code(s): K64.9 - Unspecified hemorrhoids Category: Medical Plan Jordanian #[id number] Elio I let her know that the Cologuard test was negative and she is happy about that! At this point will put her on a 3 year recall list as she is advised that this test should be repeated every 3 years and if it ever becomes positive then we should consider colonoscopy. Return office visit PRN Coding Level of Care Code Est Pt Level 3 (36708) Diagnoses Encounter for colorectal cancer screening using Cologuard test Z12.11; Z12.12 Hemorrhoids K64.9
[2025-05-15 10:29] VITALS: BP 137/80; PULSE 89; BMI 18.1
== END 2025-05-15 11:00 | disposition home or self-care (01) ==
LOC: HO.HGI 09:55
PROVIDERS: PCP Family Medicine; Visit Provider Nurse Practitioner
DX: K64.9 Unspecified hemorrhoids (principal); K59.00 Constipation, unspecified
CPT/HCPCS: 99213

== ENCOUNTER → 2025-05-15 09:54 | Outpatient (BNVA) | payer OTHER, SELFPAY | PROVIDERS: PCP Family Medicine; Visit Provider Nurse Practitioner | DX: Z12.11 Encounter for screening for malignant neoplasm of colon (principal); Z12.12 Encounter for screening for malignant neoplasm of rectum; K64.9 Unspecified hemorrhoids | CPT/HCPCS: 99212 ==